=== PATIENT | female | born 1965 | race Caucasian/White ===

== ENCOUNTER 2016-11-13 09:21 | Outpatient (CLI) | payer OTHER ==
[~2016-11-13] VITALS: Ht 160 cm; Wt 92.1 kg
[~2016-11-13 09:21] MED LIST: ALBU17IN INH; BIOT800T2 PO; CALCTAB54 PO; CELL500T PO; COSE1INJ3 SC; DAYP600T PO; FOLI1TAB2 PO; HUMI40KI SC; LOVE1INJ SC; MIRA1.5T2 PO; OMEP40CA2 PO; PRED10TA PO; PRED20TA PO; PYRI60TA2 PO; REST0.05 OU; ROPI1TAB PO; SODIUM CHLORIDE 0.9% INJ 10 ML SYR IV SCH; TYLE500T78 PO; VITA100T2 PO; VITA200016 PO; VOLT1GEL24 TD; [UNRECOGNIZED DRUG - CODE] PO
[2016-11-13] MEDS ORDERED: IMMUNE GLOBULIN 10% 10 GM in APPROPRIATE DILUENT 1 EA IV ONE (09:45)
[2016-11-13] MEDS ORDERED: IMMUNE GLOBULIN 10% 20 GM in APPROPRIATE DILUENT 1 EA IV ONE (09:45)
[2016-11-13] MEDS ORDERED: FLON1SPR (17:10)
[2016-11-13] MEDS ORDERED: [UNRECOGNIZED DRUG - CODE] PO (17:10)
[2016-11-13] MEDS ORDERED: ROPI2TAB PO (17:10)
[2016-11-13] MEDS ORDERED: PEPC1TAB4 PO (17:10)
[2016-11-13] MEDS ORDERED: METH2000 IM (17:10)
[2016-11-13] MEDS ORDERED: IVIG INJ (17:13)
[2016-11-13] MEDS ORDERED: TYLE160S15 PO (17:13)
[2016-11-13] MEDS ORDERED: FOLI1TAB2 PO (17:13)
== END 2016-11-13 13:15 | disposition home or self-care (01) ==
LOC: M INFU 09:21
PROVIDERS: ATTEND Psychiatry & Neurology Neurology
DX: G70.00 Myasthenia gravis without (acute) exacerbation (principal); Z79.899 Other long term (current) drug therapy; Z79.52 Long term (current) use of systemic steroids; Z88.8 Allergy status to other drugs, medicaments and biological substances; Z88.2 Allergy status to sulfonamides

== ENCOUNTER 2016-11-13 13:24 | Inpatient (IN) | payer OTHER ==
[~2016-11-13] VITALS: Ht 160 cm; Wt 95.3 kg
[~2016-11-13 13:24] MED LIST changes: -SODIUM CHLORIDE 0.9% INJ 10 ML SYR IV SCH
[2016-11-13 14:20] LABS: BASO % 0.2 % (0.0-1.0); EOS # 0.2 K/mm3 (0.0-0.50); EOS % 2.3 % (0.0-3.0); LARGE UNSTAINED CELL # 0.2 K/mm3 (0.0-0.4); LYMPH # 2.2 K/mm3 (1.5-4.5); LYMPH % 22.8 % (24.0-44.0); MEAN CORPUSCULAR HEMOGLOBIN 28.4 pg (27.0-33.0); MEAN CORPUSCULAR HGB CONC 33.1 g/dl (32.0-36.5); MEAN CORPUSCULAR VOLUME 85.7 fl (80.0-96.0); MONO # 0.4 K/mm3 (0.0-0.8); MONO % 4.4 % (0.0-5.0); NEUTROPHILS # 6.5 K/mm3 (1.8-7.7); NEUTROPHILS % 68.3 % (36.0-66.0); PLATELET COUNT, AUTOMATED 274 k/mm3 (150-450); RED CELL DISTRIBUTION WIDTH 14.8 % (11.5-14.5); WHITE BLOOD COUNT 9.5 K/mm3 (4.0-10.0)
[2016-11-13 14:49] LABS: ALBUMIN 3.1 GM/DL (3.2-5.2); ALBUMIN/GLOBULIN RATIO 0.61 (1.00-1.93); ALKALINE PHOSPHATASE 111 U/L (45-117); ALT/SGPT 25 U/L (12-78); ANION GAP 6 MEQ/L (8-16); AST/SGOT 17 U/L (15-37); BILIRUBIN,DIRECT < 0.1 MG/DL (0.0-0.2); BILIRUBIN,TOTAL 0.2 MG/DL (0.2-1.0); BLOOD UREA NITROGEN 10 MG/DL (7-18); CALCIUM LEVEL 8.4 MG/DL (8.5-10.1); CARBON DIOXIDE LEVEL 28 MEQ/L (21-32); CHLORIDE LEVEL 107 MEQ/L (98-107); CREATININE FOR GFR 0.65 MG/DL (0.55-1.02); GLOMERULAR FILTRATION RATE > 60.0 (>51); GLUCOSE, FASTING 100 MG/DL (70-105); POTASSIUM SERUM 3.9 MEQ/L (3.5-5.1); SODIUM LEVEL 141 MEQ/L (136-145); TOTAL PROTEIN 8.2 GM/DL (6.4-8.2)
--- NOTE | 2016-11-13 15:25 | REP ---
Abdominal series: Three views. History: Abdominal pain. Comparison chest x-ray June 15, 2016. Findings: There is a right subclavian Nqamvi-P-Cqct catheter with its tip in the expected location of the superior vena cava. Heart is not enlarged. Lungs are well inflated and clear. There is no evidence of infiltrate or free subdiaphragmatic air. Supine and erect views of the abdomen demonstrate metallic fusion apparatus at the L5-S1 spinous process level and some degenerative disc changes in the lumbar spine. The bowel gas pattern is unremarkable. Flank stripes and psoas margins are intact. No mass, organomegaly or pathologic calcification is seen. Impression: Negative abdominal series. Signed by William Perla MD 11/13/2016 07:28 P
[2016-11-13] MEDS ORDERED: ACETAMINOPHEN TAB 650MG DOSE (2X325MG) PO PRN (16:45)
[2016-11-13] MEDS ORDERED: PEPC1TAB4 PO (17:10)
[2016-11-13] MEDS ORDERED: [UNRECOGNIZED DRUG - CODE] PO (17:10)
[2016-11-13] MEDS ORDERED: ROPI2TAB PO (17:10)
[2016-11-13] MEDS ORDERED: METH2000 IM (17:10)
[2016-11-13] MEDS ORDERED: FLON1SPR (17:10)
--- NOTE | 2016-11-13 17:10 | HPEPDOC ---
General Date of Admission 11/13/16 508PM Chief Complaint The patient is a 50-year-old female Presented from the infusion center (for IVIG ) for difficulty swallowing History of Present Illness Patient is a 50 year old male with a PMHx of psoriatic arthritis, restless leg syndrome, seronegative myasthenia gravis and COPD who presented to the ER from infusion center because of difficulty swallowing. Patient notes that yesterday she was at home and eating ice cream that evening. She was able to swallow the ice cream, but got the sensation of it getting stuck in her esophagus. She then vomited up the bolus. She denies any blood. She reported that she went to the infusion center for IVIG the next day. She completed her infusion and tried to consume some apple sauce and pudding, but experienced the same thing again. She vomited 4 times that time. She denies any fever or chills, diarrhea or constipation. She notes some upper abdominal pain when she does try to swallow. She denies any dysuria. She denies chest pain, or cough. But reports some difficulty taking in breaths, noting her diaphragm feels weak. She has been diagnosed with seronegative myasthenia gravis in April and has been receiving IVIG infusions every 14 days since that point, as well as pyridostigmine. Home Medications Scheduled (Cosentyx) 150 Mg/Ml Inj 300 MG SC QMONTH (Reported) FIRST WEDNESDAY OF EVERY MONTH, DUE 11/13/16 (Flonase Allergy Relief) 50 Mcg/Act Spr 2 SPRAYS NA DAILY (Reported) ([Ivig]) 1 DOSE INJ Q2WK (Reported) Famotidine (Pepcid) 20 Mg Tab 20 MG PO DAILY (Reported) CRUSHED AND PUT IN APPLESAUCE/PUDDING Folic Acid (Folic Acid) 1 Mg Tab 1 MG PO DAILY (Reported) CRUSHED AND PUT IN APPLESAUCE/PUDDING Methotrexate Sodium (Methotrexate Sodium) 25 Mg/Ml Inj 7.5 MG IM QWEEK ( Reported) MONDAYS Pyridostigmine [place] (Mestinon) 60 Mg/5 Ml Syrp 2.5 MG PO BID (Reported) Ropinirole Hydrochloride (Ropinirole HCl) 1 Mg Tab 1 MG PO BID (Reported) 0600, 1200 - CRUSHED AND PUT IN APPLESAUCE/PUDDING Ropinirole Hydrochloride (Ropinirole HCl) 2 Mg Tab 2 MG PO QHS (Reported) CRUSHED AND PUT IN APPLESAUCE/PUDDING Scheduled PRN Acetaminophen (Tylenol Childrens) 160 Mg/5 Ml Amber 640 MG PO PRN PRN PRN PAIN / FEVER (Reported) Albuterol Sulfate (Ventolin Hfa) 200 Puff/8 Gm Aers 2 PUFF INH Q4H PRN PRN SHORTNESS OF BREATH (Reported) Allergies Coded Allergies: Sulfa Drugs (Verified Allergy, Severe, LIVER FAILURE, 01/16/13) Sulfa Drugs Cross Reactors (Verified Allergy, Severe, LIVER FAILURE, ) Metoclopramide (Verified Allergy, Unknown, 11/21/14) Sorbitan (Verified Allergy, Unknown, 11/21/14) Sulfasalazine (Verified Allergy, Unknown, 11/21/14) Ustekinumab (Verified Allergy, Unknown, 11/21/14) Uncoded Allergies: STEROIDS (Adverse Reaction, Unknown, TOO MANY SIDE EFFECTS, 11/13/16) PATIENT STATES SHE DOES NOT WANT TO RECEIVE STEROIDS OF ANY KIND BECAUSE OF ALL THE REBOUND EFFECTS SHE GETS FROM THEM Past Medical History Medical History Psoriatic arthritis, restless leg syndrome, seronegative myasthenia gravis and COPD Surgical History Right knee surgery Spinal fusion Right hip repair Exploratory laparotomy for adhesions Family History Family History - Mother with history of ESRD - Father with history of amyloidosis and prostate CA Social History Social History - Denies the use of alcohol or illicit drugs, Smokes occasionally - Denies recent travel or sick contacts - Lives with 14 year old son - 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; 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 Review of Symptoms Other systems Constitutional: Denies weight loss, change in appetite, or recent trauma Eyes: No visual changes or eye pain Ears, Nose, Throat: Denies nose bleeds, Positive difficulty swallowing Cardiovascular: Denies chest pain, sweating, or orthopnea Respiratory: Denies cough, wheezing, Difficulty getting in a breath GI: Positive nausea and vomiting, Mild abdominal pain, No diarrhea or constipation : Denies pain with urination or frequency Musculoskeletal: Denies joint pain or swelling Neuro / Psych: Denies muscle weakness or sensory loss Skin: No skin rashes noted All other review of systems negative; otherwise stated in history of present illness Vital Signs - Vitals: BP 120/64, HR 74, RR 18, Sat 99%RA, Temp 98.5F - General: Lying in bed, No acute distress, Speaking in full sentences, AAOx3 - HEENT: NC, AT, PERRLA, EOMI - CVS: RRR, +S1S2, - Murmurs / rubs / gallops - Lungs: Fair air entry bilaterally, Clear to auscultation, No wheezing / rales / rhonchi - Abdomen: Soft, Non-distended, Non-tender, + Bowel sounds x 4 - Extremities: + PPx4, No lower extremity edema, No calf tenderness - Neuro: No focal motor or sensory deficit, 4/5 muscle strength in all four extremities - Skin: No visible rashes Laboratory Data Labs 24H Laboratory Tests 2 11/13/16 14:13: Aspartate Amino Transf (AST/SGOT) 17, Alanine Aminotransferase (ALT/SGPT) 25, Alkaline Phosphatase 111, Total Bilirubin 0.2, Direct Bilirubin < 0.1, Albumin 3.1L, Albumin/Globulin Ratio 0.61L, Anion Gap 6L, White Blood Count 9.5, Red Blood Count 4.18, Hemoglobin 11.9L, Hematocrit 35.8L, Mean Corpuscular Volume 85.7, Mean Corpuscular Hemoglobin 28.4, Mean Corpuscular Hemoglobin Concent 33.1 , Red Cell Distribution Width 14.8H, Platelet Count 274, Neutrophils (%) (Auto) 68.3H, Lymphocytes (%) (Auto) 22.8L, Monocytes (%) (Auto) 4.4, Eosinophils (%) ( Auto) 2.3, Basophils (%) (Auto) 0.2, Neutrophils # (Auto) 6.5, Lymphocytes # ( Auto) 2.2, Monocytes # (Auto) 0.4, Eosinophils # (Auto) 0.2, Basophils # (Auto) 0.0, Calcium Level 8.4L, Glomerular Filtration Rate > 60.0, Large Unclassified Cells # 0.2, Large Unclassified Cells % 2.0, Total Protein 8.2 CBC/BMP Laboratory Tests 11/13/16 14:13 Red Blood Count 4.18, Mean Corpuscular Volume 85.7, Mean Corpuscular Hemoglobin 28.4, Mean Corpuscular Hemoglobin Concent 33.1, Red Cell Distribution Width 14.8 H, Neutrophils (%) (Auto) 68.3 H, Lymphocytes (%) (Auto) 22.8 L, Monocytes (%) (Auto) 4.4, Eosinophils (%) (Auto) 2.3, Basophils (%) (Auto) 0.2, Neutrophils # (Auto) 6.5, Lymphocytes # (Auto) 2.2, Monocytes # (Auto) 0.4, Eosinophils # (Auto) 0.2, Basophils # (Auto) 0.0 Plan / VTE VTE Prophylaxis Ordered?: Yes Plan Plan Nausea and vomiting - 2/2 difficulty swallowing - possibly 2/2 myasthenia crisis , possibly esophageal dysmotility - Started to occur yesterday evening - Has received infusion of IVIG at the infusion center - No focal deficits, no eye lid droop, no double vision - Will check esophogram for any evidence of stricture - Will provide bed side swallow evaluation - Will keep NPO, will advance to liquid diet after esophogram - c/w Pyridostigmine - Will give 30grames of IVIG for additional 2 days (3 days total) - Will consult neurology (Dr. Colbert) appreciate their input Normocytic anemia - Hg baseline of 13, currently at 11.9 - Will check iron panel, B12, Folate, reticulocyte count - Will follow CBC Psoriatic arthritis - receives infusion of biologic and methotrexate as an outpatient Restless leg syndrome - c/w ropinarole COPD - some wheezing on physical exam - will start duoneb therapy while inpatient - c/w home inhaled therapy Gastrointestinal prophylaxis - Will start protonix DVT prophylaxis - Will start lovenox PASCUAL URBINA MD Nov 13, 2016 17:10
[2016-11-13] MEDS ORDERED: TYLE160S15 PO (17:13)
[2016-11-13] MEDS ORDERED: IVIG INJ (17:13)
[2016-11-13] MEDS ORDERED: FOLI1TAB2 PO (17:13)
[2016-11-13] MEDS ORDERED: ALBUTEROL 90 MCG/ACT 8GM HFA INHALER INH PRN (17:30)
[2016-11-13 17:34] LABS: RETIC HEMOGLOBIN CONTENT CHr 33.1 PG (24-36); RETICULOCYTE ABSOLUTE ADVIA212 65 x10(9)/L (17-77)
[2016-11-13 17:42] LABS: FERRITIN 72 NG/ML (8-252); PERCENT SATURATION 13.4 % (13.2-37.4); TOTAL IRON BINDING CAPACITY 307 UG/DL (250-450)
--- NOTE | 2016-11-13 17:48 | EDDOCDS ---
Physician Documentation [facility] Name: Angelia Arthur Age: 50 yrs Sex: Female : 1965 Arrival Date: 11/13/2016 Time: 13:24 Bed 4 Private MD: Gustavo So T Disposition: 11/13 16:26 Critical Care: Critical care not applicable. pc Disposition: 11/13/16 16:26 Hospitalization ordered by Tea Gunn for Inpatient Admission. Preliminary diagnosis are Dysphagia, Myasthenia gravis - seronegative. - Bed requested for 5 [place]. - Status is Inpatient Admission. rs3 - Condition is Stable. - Problem is an acute exacerbation. - Symptoms are unchanged. HPI: 14:08 This 50 yrs old Female presents to ER via Walkin/Carried/Asstd with pc complaints of Difficulty Swallowing. 14:08 The history is obtained from the patient. She has had difficulty swallowing for 24 pc hours and has vomited pudding and ice cream within the past 12 hours. She has MG and was in the infusion unit for IVIG today and came for evaluation. She feel she is having a flare of her MG. She denies any fevers or chills, Resp or symptoms. At their worst, the symptoms were mild. In the emergency department, the symptoms are unchanged. The patient has experienced similar episodes in the past, a few times. The patient has been recently seen by Dr. Garza. Historical: - Allergies: Azulfidine; Reglan; Stelara; SULFA (SULFONAMIDES); - Home Meds: 1. Ventolin HFA 90 mcg/actuation Nebulizer HFAA 2 puffs every 4-6 hours 2. Pepcid 20 mg Oral tab 1 tab once daily 3. prednisone 20 mg Oral tab once daily 4. Flonase 50 mcg/actuation Nasal spsn 5. ropinirole 1 mg oral tab 1 tab twice a day 6. ropinirole 2 mg oral tab 1 tab daily 7. Cosentyx 150 mg/mL subcutaneous syrg 2 mL every 4 wks 8. pyridostigmine bromide 60 mg/5 mL oral syrp 2.5 mL twice a day 9. mycophenolate mofetil 500 mg oral tab 2 tabs 2 times per day 10. methotrexate injection weekly 7.5 mg 11. folic acid 1 mg Oral tab 1 tab once daily - PMHx: Arthritis; body spasms; myesthenia gravis; Psoriasis; - PSHx: Knee surgery- Right; Spinal Fusion; Hip Arthroplasty, Right; Cardiac stents; Colonoscopy; infusaport placed; Endoscopy, Upper; - The history from nurses notes was reviewed: and I agree with what is documented. - Social history: Smoking status: Patient uses tobacco products, current some day smoker. No barriers to communication noted, The patient speaks fluent [place]. - : The pt / caregiver states he / she is not on anticoagulants. Home medication list is obtained from the patient, [employer] import data. - Hospitalizations: : No recent hospitalization is reported. - Exposure Risk Screening:: None identified. - Immunization history:: All immunizations up-to-date. - Family history: Not pertinent. - Social history:: the patient is a non-smoker, the patient does not drink alcohol. 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 pc Exam: 14:08 General Appearance: no acute distress, alert. pc 14:08 EENT: normal eye inspection, ears, nose and throat normal, pharynx normal, mucous membranes moist 14:08 Neck: The exam reveals no acute abnormalities. ROM is normal and painless. No nuchal rigidity is noted.. 14:08 Respiratory: no respiratory distress, normal breath sounds, chest non-tender. 14:08 CVS: regular pulse rate, regular rhythm, normal S1 and S2, no murmurs, strong peripheral pulses. 14:08 Abdomen: soft, non-tender, no organomegaly, normal bowel sounds. 14:08 Back: normal inspection. 14:08 Skin: skin color is normal, warm, dry, diffuse psoriatic patches. 14:08 Extremities: The extremities have a grossly normal appearance, are non-tender, without acute ROM abnormalities. 14:08 Neuro: oriented x 3, cranial nerves normal as tested, no motor deficits, no sensory deficits. 14:08 Psych: normal mood. Vital Signs: 13:26 BP 128 / 76; Pulse 71; Resp 18; Temp 98.5(O); Pulse Ox 99% on R/A; Weight 92.99 kg / ct3 205.01 lbs (R); Height 5 ft. 3 in. (160.02 cm) (R); Pain 6/10; 15:33 BP 137 / 74 (auto/); rs3 15:34 Pulse 68 MON; Pulse Ox 98% ; rs3 16:06 BP 120 / 64 (auto/); rs3 16:07 Pulse 74 MON; Pulse Ox 98% ; rs3 16:21 BP 119 / 66 (auto/); rs3 16:21 Pulse 66 MON; Pulse Ox 97% ; rs3 16:36 BP 134 / 69 (auto/); rs3 16:36 Pulse 82 MON; Pulse Ox 97% ; rs3 16:51 BP 111 / 61 (auto/); rs3 16:51 Pulse 70 MON; Pulse Ox 96% ; rs3 17:06 BP 107 / 63 (auto/); rs3 17:17 BP 107 / 63; Pulse 64 MON; Resp 18; Temp 98(TE); Pulse Ox 97% on R/A; Pain 2/10; rs3 17:21 BP 103 / 58 (auto/); rs3 17:21 Pulse 72 MON; Pulse Ox 96% ; rs3 13:26 Body Mass Index 36.31 (92.99 kg, 160.02 cm) ct3 MDM: 14:05 heparin 100units/mL flush (infusaport) 5 ml IVP once; flush first with 10mL of NS pc followed by heparin ordered. 14:05 Access Infusaport ordered. pc 14:06 CBC with Diff Ordered. EDMS 14:06 MED Profile Ordered. EDMS 14:06 Liver Profile Ordered. EDMS 14:07 Abdomen, Flat\E\Upright,PA Chest Ordered. EDMS 14:08 Differential Diagnosis: myasthenia gravis; difficulty swallowing. Plan: labs, imaging, pc d/w Dr. Garza. 15:13 CBC with Diff Reviewed. pc 15:13 MED Profile Reviewed. pc 15:13 Liver Profile Reviewed. pc 16:06 [facility] Payment Agreement was scanned into [employer] and attached to record. jp5 16:06 Financial registration complete. jp5 16:18 Data reviewed: old medical records, vital signs, nurses notes, lab test results, all pc radiology studies and available results. Test interpretation: LAB - all labs as ordered have been reviewed, interpreted and considered in the overall management of the clinical presentation; X-RAY - interpreted by Radiologist and personally reviewed, 3-view abdomen series; no acute disease. The patient has been re-examined and re-evaluated. There is no appreciated change of the patient's symptoms at this time. Physician consultation: Dr. Fernando Colbert MD regarding patient's condition, and he relays that her diagnosis suspect at best, that other IVIG which she already receives, there is nothing acute he can offer but would consult when admitted . Disposition: The historical points, examination findings, and any diagnostic results supporting the provided diagnosis, were discussed with the patient or legal guardian. The need for further work-up and/or treatment in the hospital was explained. 16:18 Physician consultation: Dr. Tea Gunn regarding admission, and will see patient in ED. 16:52 Admission / Observation Status ordered. EDMS 16:53 URINALYSIS Ordered. EDMS 16:53 URINE CULTURE Ordered. EDMS 17:08 Esophagram Barium Swallow Ordered. EDMS 17:10 NPO DIET ordered. EDMS 17:16 RETICULOCYTE COUNT Ordered. EDMS Administered Medications: 16:19 Not Given (accessed at infusion clinic): heparin 100units/mL flush (infusaport) 5 ml rs3 IVP once; flush first with 10mL of NS followed by heparin Signatures: Dispatcher [employer] EDMS Sushant Brown MD MD Kim Jeffers RN RN rs3 Alise Zuñiga RN RN [id number] Muriel Kim RN RN [id number] Ale Paz [email or web address] The chart was reviewed and I authenticate all verbal orders and agree with the evaluation and treatment provided.Corrections: (The following items were deleted from the chart) 17:09 17:05 CLEAR LIQUIDS DIET ordered. EDMS EDMS 17:19 17:07 IRON (FE) ordered. EDMS EDMS 17:19 17:07 TOTAL IRON BINDING CAPACIT ordered. EDMS EDMS 17:19 17:07 FERRITIN ordered. EDMS EDMS 17:19 17:08 RETICULOCYTE COUNT ordered. EDMS EDMS 17:19 17:08 VITAMIN B12 LEVEL ordered. EDMS EDMS 17:19 17:08 FOLATE ordered. EDMS EDMS Attachments: 16:06 [facility] Payment Agreement [email or web address]
--- NOTE | 2016-11-13 17:48 | EDDOCDS ---
Nurse's Notes [facility] Name: Angelia Arthur Age: 50 yrs Sex: Female : 1965 Arrival Date: 11/13/2016 Time: 13:24 Bed 4 Private MD: Gustavo So T Diagnosis: Dysphagia;Myasthenia gravis-seronegative Presentation: 11/13 13:31 Presenting complaint: Patient states: that she started having trouble swallowing ms18 yesterday. Pt reports that she gets IV Ig every 14 days. Pt reports pain in her back when she eats. Pt also c/o weakness in her diaphragm and throat. Pt also reports vomiting 4 times this morning. Onset: The symptoms/episode began/occurred yesterday. This patient has not experienced a previous allergic reaction. Anaphylaxis evaluation, the patient reports or I have noted the following symptoms which indicate a significant risk of anaphylaxis: no signs or symptoms of anaphylaxis were noted. Adult Sepsis Screening: The patient does not have new or worsening altered mentation. Patient's respiratory rate is less than 22. Systolic blood pressure is greater than 100. Patient has a qSOFA score of 0- Negative Sepsis Screen. Suicide/Homicide risk assessment- the patient denies having any suicidal and/or homicidal ideations and does not present with any other emotional, behavioral or mental health complaints. Status: Patient is not a relocation services specialist or dependent. Transition of care: patient was received from infusion clinic. 13:31 Acuity: GONZALES Level 3 ms18 13:31 Method Of Arrival: Walkin/Carried/Asstd ms18 Triage Assessment: 13:40 General: Appears in no apparent distress, obese, uncomfortable, Behavior is appropriate ms18 for age, cooperative. Pain: Location: back and throat Pain currently is 5 out of 10 on a pain scale. HIV screening NA for this visit Offered previously. Neurological: Level of Consciousness is awake, alert, obeys commands, Oriented to person, place, time. Respiratory: Airway is patent Respiratory effort is even, unlabored, Reports shortness of breath. Derm: Skin is pink, warm & dry. 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 Ventolin HFA 90 mcg/actuation Nebulizer HFAA 2 puffs every 4-6 hours 2. Pepcid 20 mg Oral tab 1 tab once daily 3. prednisone 20 mg Oral tab once daily 4. Flonase 50 mcg/actuation Nasal spsn 5. ropinirole 1 mg oral tab 1 tab twice a day 6. ropinirole 2 mg oral tab 1 tab daily 7. Cosentyx 150 mg/mL subcutaneous syrg 2 mL every 4 wks 8. pyridostigmine bromide 60 mg/5 mL oral syrp 2.5 mL twice a day 9. mycophenolate mofetil 500 mg oral tab 2 tabs 2 times per day 10. methotrexate injection weekly 7.5 mg 11. folic acid 1 mg Oral tab 1 tab once daily - PMHx: Arthritis; body spasms; myesthenia gravis; Psoriasis; - PSHx: Knee surgery- Right; Spinal Fusion; Hip Arthroplasty, Right; Cardiac stents; Colonoscopy; infusaport placed; Endoscopy, Upper; - The history from nurses notes was reviewed: and I agree with what is documented. - Social history: Smoking status: Patient uses tobacco products, current some day smoker. No barriers to communication noted, The patient speaks fluent [place] Citizen. - : The pt / caregiver states he / she is not on anticoagulants. Home medication list is obtained from the patient, [employer] import data. - Hospitalizations: : No recent hospitalization is reported. - Exposure Risk Screening:: None identified. - Immunization history:: All immunizations up-to-date. - Family history: Not pertinent. - Social history:: the patient is a non-smoker, the patient does not drink alcohol. Screenin:55 Screening information is obtained from the patient. Fall risk: No risks identified. rs3 Assistance ADL's: requires no assistance with activities of daily living. Abuse/DV Screen: The patient / caregiver reports he/she is: not in a situation that causes fear, pain or injury. Nutritional screening: No deficits noted. Advance Directives: Currently, there is no health care proxy. home support is adequate. Assessment: 13:56 General: Appears in no apparent distress, Behavior is appropriate for age, cooperative. rs3 Pain: Location: thoracic area. Neurological: Level of Consciousness is. Respiratory: Breath sounds with crackles in left posterior lower lobe, right posterior middle lobe and right posterior lower lobe Breath sounds with wheezes bilaterally. Respiratory: Airway is patent Respiratory effort is even, unlabored, Respiratory pattern is regular, symmetrical. Derm: Skin is pink, warm & dry. 14:50 General: Appears in no apparent distress, returned from x-ray. stable. tolerated well. rs3 waiting for lab results. 15:50 General: Appears in no apparent distress, Behavior is appropriate for age, ambulated to rs3 bathroom. tolerated well. reports of mid back pain unchanged. attending provider made aware. breathes easy. denies of acute distress. Able to maintain oral secretion swallowing easily. 16:23 General: Appears in no apparent distress, Behavior is cooperative, patient resting rs3 comfortable on stretcher. denies of acute distress. breathes easy. . 17:30 General: Appears in no apparent distress, Behavior is appropriate for age, cooperative. rs3 Pain: Location: back and thoracic area. Neurological: Level of Consciousness is awake, alert, Oriented to person, place, time, Deputy Sheriff Custody are equal bilaterally Moves all extremities. Cardiovascular: Capillary refill < 3 seconds Heart tones S1 S2 present. Respiratory: Airway is patent Respiratory effort is even, unlabored, Respiratory pattern is regular, symmetrical. GI: Abdomen is non- distended Bowel sounds present X 4 quads. : Urine is clear. Derm: Skin is pink, warm & dry. Vital Signs: 13:26 BP 128 / 76; Pulse 71; Resp 18; Temp 98.5(O); Pulse Ox 99% on R/A; Weight 92.99 kg (R); ct3 Height 5 ft. 3 in. (160.02 cm) (R); Pain 6/10; 15:33 BP 137 / 74 (auto/); rs3 15:34 Pulse 68 MON; Pulse Ox 98% ; rs3 16:06 BP 120 / 64 (auto/); rs3 16:07 Pulse 74 MON; Pulse Ox 98% ; rs3 16:21 BP 119 / 66 (auto/); rs3 16:21 Pulse 66 MON; Pulse Ox 97% ; rs3 16:36 BP 134 / 69 (auto/); rs3 16:36 Pulse 82 MON; Pulse Ox 97% ; rs3 16:51 BP 111 / 61 (auto/); rs3 16:51 Pulse 70 MON; Pulse Ox 96% ; rs3 17:06 BP 107 / 63 (auto/); rs3 17:17 BP 107 / 63; Pulse 64 MON; Resp 18; Temp 98(TE); Pulse Ox 97% on R/A; Pain 2/10; rs3 17:21 BP 103 / 58 (auto/); rs3 17:21 Pulse 72 MON; Pulse Ox 96% ; rs3 13:26 Body Mass Index 36.31 (92.99 kg, 160.02 cm) ct3 Vitals: 13:26 Log In Time: November 13, 2016 at 13:23. ct3 ED Course: 13:25 Patient visited by Helen Arevalo PCA. ct3 13:25 Gustavo So is Private Physician. ct3 13:25 Patient moved to Waiting ct3 13:27 Patient moved to Pre RCE ct3 13:34 Triage Initiated ms18 13:42 Kim Jeffers RN is Primary Nurse. ms18 13:42 Patient moved to 4 ms18 13:45 Sushant Brown MD is Attending Physician. pc 13:55 Patient visited by Kim Jeffers RN. rs3 14:04 Patient visited by Sushant Brown MD. pc 14:15 Liver Profile Sent. rs3 14:15 MED Profile Sent. rs3 14:15 CBC with Diff Sent. rs3 14:53 Patient visited by Kim Jeffers RN. rs3 15:31 Patient visited by Kim Jeffers RN. rs3 15:34 Abdomen, Flat\E\Upright,PA Chest Returned. EDMS 16:06 [facility] Payment Agreement was scanned into [employer] and attached to record. jp5 16:19 Patient visited by Kim Jeffers RN. rs3 16:22 Maintain field IV. Dressing intact. Good blood return noted. rs3 16:26 Tea Gunn is Hospitalizing Provider. pc 17:31 No procedures done that require assistance. rs3 17:32 The patient / caregiver is instructed regarding the plan of care and ED course. rs3 Administered Medications: 16:19 Not Given (accessed at infusion clinic): heparin 100units/mL flush (infusaport) 5 ml rs3 IVP once; flush first with 10mL of NS followed by heparin Order Results: Lab Order: CBC with Diff; SPEC'M 11/13/16 14:13 Test: WHITE BLOOD COUNT; Value: 9.5; Range: 4.0-10.0; Units: K/mm3; Status: F Test: RED BLOOD COUNT; Value: 4.18; Range: 4.00-5.40; Units: M/mm3; Status: F Test: HEMOGLOBIN; Value: 11.9; Range: 12.0-16.0; Abnormal: Below low normal; Units: g/dl; Status: F Test: HEMATOCRIT; Value: 35.8; Range: 36.0-47.0; Abnormal: Below low normal; Units: %; Status: F Test: MEAN CORPUSCULAR VOLUME; Value: 85.7; Range: 80.0-96.0; Units: fl; Status: F Test: MEAN CORPUSCULAR HEMOGLOBIN; Value: 28.4; Range: 27.0-33.0; Units: pg; Status: F Test: MEAN CORPUSCULAR HGB CONC; Value: 33.1; Range: 32.0-36.5; Units: g/dl; Status: F Test: RED CELL DISTRIBUTION WIDTH; Value: 14.8; Range: 11.5-14.5; Abnormal: Above high normal; Units: %; Status: F Test: PLATELET COUNT, AUTOMATED; Value: 274; Range: 150-450; Units: k/mm3; Status: F Test: NEUTROPHILS %; Value: 68.3; Range: 36.0-66.0; Abnormal: Above high normal; Units: %; Status: F Test: LYMPH %; Value: 22.8; Range: 24.0-44.0; Abnormal: Below low normal; Units: %; Status: F Test: MONO %; Value: 4.4; Range: 0.0-5.0; Units: %; Status: F Test: EOS %; Value: 2.3; Range: 0.0-3.0; Units: %; Status: F Test: BASO %; Value: 0.2; Range: 0.0-1.0; Units: %; Status: F Test: LARGE UNSTAINED CELL %; Value: 2.0; Range: 0.0-4.0; Units: %; Status: F Test: NEUTROPHILS #; Value: 6.5; Range: 1.8-7.7; Units: K/mm3; Status: F Test: LYMPH #; Value: 2.2; Range: 1.5-4.5; Units: K/mm3; Status: F Test: MONO #; Value: 0.4; Range: 0.0-0.8; Units: K/mm3; Status: F Test: EOS #; Value: 0.2; Range: 0.0-0.50; Units: K/mm3; Status: F Test: BASO #; Value: 0.0; Range: 0.0-0.2; Units: K/mm3; Status: F Test: LARGE UNSTAINED CELL #; Value: 0.2; Range: 0.0-0.4; Units: K/mm3; Status: F Lab Order: MED Profile; SPEC'M 11/13/16 14:13 Test: GLUCOSE, FASTING; Value: 100; Range: 70-105; Units: MG/DL; Status: F Test: BLOOD UREA NITROGEN; Value: 10; Range: 7-18; Units: MG/DL; Status: F Test: CREATININE FOR GFR; Value: 0.65; Range: 0.55-1.02; Units: MG/DL; Status: F Test: GLOMERULAR FILTRATION RATE; Value: > 60.0; Range: >51; Status: F Test: SODIUM LEVEL; Value: 141; Range: 136-145; Units: MEQ/L; Status: F Test: POTASSIUM SERUM; Value: 3.9; Range: 3.5-5.1; Units: MEQ/L; Status: F Test: CHLORIDE LEVEL; Value: 107; Range: 98-107; Units: MEQ/L; Status: F Test: CARBON DIOXIDE LEVEL; Value: 28; Range: 21-32; Units: MEQ/L; Status: F Test: ANION GAP; Value: 6; Range: 8-16; Abnormal: Below low normal; Units: MEQ/L; Status: F Test: CALCIUM LEVEL; Value: 8.4; Range: 8.5-10.1; Abnormal: Below low normal; Units: MG/DL; Status: F Test Note: ; Units are mL/min/1.73 m2 Chronic Kidney Disease Staging per NKF: Stage I & II GFR >=60 Normal to Mildly Decreased Stage III GFR 30-59 Moderately Decreased Stage IV GFR 15-29 Severely Decreased Stage V GFR <15 Very Little GFR Left ESRD GFR <15 on ENVIRONMENTAL ISSUES INSTRUCTOR Lab Order: Liver Profile; [facility]11/13/16 14:13 Test: AST/SGOT; Value: 17; Range: 15-37; Units: U/L; Status: F Test: ALT/SGPT; Value: 25; Range: 12-78; Units: U/L; Status: F Test: ALKALINE PHOSPHATASE; Value: 111; Range: 45-117; Units: U/L; Status: F Test: BILIRUBIN,TOTAL; Value: 0.2; Range: 0.2-1.0; Units: MG/DL; Status: F Test: BILIRUBIN,DIRECT; Value: < 0.1; Range: 0.0-0.2; Units: MG/DL; Status: F Test: TOTAL PROTEIN; Value: 8.2; Range: 6.4-8.2; Units: GM/DL; Status: F Test: ALBUMIN; Value: 3.1; Range: 3.2-5.2; Abnormal: Below low normal; Units: GM/DL; Status: F Test: ALBUMIN/GLOBULIN RATIO; Value: 0.61; Range: 1.00-1.93; Abnormal: Below low normal; Status: F Lab Order: RETICULOCYTE COUNT; [facility] 11/13/16 14:13 Test: RETICULOCYTE % [id number]; Value: 1.60; Range: 0.5-1.5; Abnormal: Above high normal; Units: %; Status: F Test: RETICULOCYTE ABSOLUTE [id number]; Value: 65; Range: 17-77; Units: x10(9)/L; Status: F Test: RETIC HEMOGLOBIN CONTENT CHr; Value: 33.1; Range: 24-36; Units: PG; Status: F Lab Order: TOTAL IRON BINDING CAPACIT; [facility]11/13/16 14:13 Test: IRON (FE); Value: 41; Range: 50-170; Abnormal: Below low normal; Units: UG/DL; Status: F Test: TOTAL IRON BINDING CAPACITY; Value: 307; Range: 250-450; Units: UG/DL; Status: F Test: PERCENT SATURATION; Value: 13.4; Range: 13.2-37.4; Units: %; Status: F Lab Order: VITAMIN B12 LEVEL; [facility]'M 11/13/16 14:13 Test: VITAMIN B12 LEVEL; Range: 247-911; Units: PG/ML; Status: I Lab Order: FOLATE; SPEC'M 11/13/16 14:13 Test: FOLATE; Range: >5.4; Units: NG/ML; Status: I Lab Order: FERRITIN; SPEC'M 11/13/16 14:13 Test: FERRITIN; Value: 72; Range: 8-252; Units: NG/ML; Status: F Radiology Order: Abdomen, Flat\E\Upright,PA Chest Test: Abdomen, Flat\E\Upright,PA Chest REASON FOR EXAMINATION: Abdomen Pain; Abdominal series: Three views.; ; History: Abdominal pain.; ; Comparison chest x-ray June 15, 2016.; ; Findings: There is a right subclavian Komcuj-K-Pdno catheter with its tip in the; expected location of the superior vena cava. Heart is not enlarged. Lungs are; well inflated and clear. There is no evidence of infiltrate or free; subdiaphragmatic air.; ; Supine and erect views of the abdomen demonstrate metallic fusion apparatus at; the L5-S1 spinous process level and some degenerative disc changes in the lumbar; spine. The bowel gas pattern is unremarkable. Flank stripes and psoas margins; are intact. No mass, organomegaly or pathologic calcification is seen.; ; Impression:; ; Negative abdominal series.; ; ; ; ; Unreviewed; Outcome: 16:26 Decision to Hospitalize by Provider. 17:31 Discharge Assessment: patient administered narcotics - no. The following High Risk rs3 Discharge criteria are identified: None. Admitted to Med/Surg accompanied by tech, via stretcher, with chart. Condition: stable. No special radiology studies were completed. Admission hand-off: Report Faxed Fax receipt verified by unit staff. Property :Personal belongings accompany Pt. 17:47 Patient left the ED. rs3 Signatures: Dispatcher [employer] EDMS Sushant Brown MD MD pc Soosairaj, Rosemary, RN RN rs3 Helen Arevalo, JULIO CÉSAR EQUIPMENT OPERATOR/LABORER/SUPERVISOR ct3 Alise Zuñiga RN RN ms18 Ale Paz jp5 Corrections: (The following items were deleted from the chart) 17:17 17:06 BP 107 / 63; Pulse 64bpm; MonitorResp 18bpm; Pulse Ox 97% RA; Temp 98F Temporal; rs3 Pain 2/10; rs3 MTDD
[2016-11-13 17:59] LABS: VITAMIN B12 LEVEL 829 PG/ML (247-911)
[2016-11-13 18:00] VITALS: BP 135/68
[2016-11-13 18:00] LABS: FOLATE > 24.0 NG/ML (>5.4)
[2016-11-13] MEDS ORDERED: ACETAMINOPHEN 650 MG SUPP PR PRN (19:45)
[2016-11-13] MEDS: PANTOPRAZOLE 40MG INJ (PROTONIX) (C9113) IV SCH (20:27)
[2016-11-13] MEDS: PYRIDOSTIGMINE 60 MG TAB PO SCH ×2 (20:28→20:52)
[2016-11-13] MEDS: rOPINIRole 1MG TAB PO SCH (20:28)
[2016-11-13] MEDS: ACETAMINOPHEN 325 MG/10.15 ML UDC PO PRN (20:28)
[2016-11-13 22:00] VITALS: BP 108/59
[2016-11-14] VITALS (8 sets, daily range): BP systolic 110–177; BP diastolic 56–100
[2016-11-14] MEDS: ACETAMINOPHEN 325 MG/10.15 ML UDC PO PRN ×2 (02:18→23:24)
[2016-11-14] MEDS: rOPINIRole 1MG TAB PO SCH ×3 (05:15→23:17)
[2016-11-14 06:37] LABS: BASO % 0.5 % (0.0-1.0); EOS # 0.2 K/mm3 (0.0-0.50); LARGE UNSTAINED CELL # 0.1 K/mm3 (0.0-0.4); LARGE UNSTAINED CELL % 1.7 % (0.0-4.0); LYMPH # 2.1 K/mm3 (1.5-4.5); LYMPH % 28.3 % (24.0-44.0); MEAN CORPUSCULAR HEMOGLOBIN 28.9 pg (27.0-33.0); MEAN CORPUSCULAR HGB CONC 33.3 g/dl (32.0-36.5); MEAN CORPUSCULAR VOLUME 86.9 fl (80.0-96.0); MONO # 0.4 K/mm3 (0.0-0.8); MONO % 5.1 % (0.0-5.0); NEUTROPHILS # 4.7 K/mm3 (1.8-7.7); NEUTROPHILS % 62.3 % (36.0-66.0); PLATELET COUNT, AUTOMATED 282 k/mm3 (150-450); RED CELL DISTRIBUTION WIDTH 14.8 % (11.5-14.5); WHITE BLOOD COUNT 7.5 K/mm3 (4.0-10.0)
[2016-11-14 07:01] LABS: ALBUMIN 3.5 GM/DL (3.2-5.2); ALBUMIN/GLOBULIN RATIO 0.65 (1.00-1.93); ALKALINE PHOSPHATASE 115 U/L (45-117); ALT/SGPT 27 U/L (12-78); ANION GAP 4 MEQ/L (8-16); AST/SGOT 23 U/L (15-37); BILIRUBIN,TOTAL 0.3 MG/DL (0.2-1.0); BLOOD UREA NITROGEN 11 MG/DL (7-18); CALCIUM LEVEL 8.9 MG/DL (8.5-10.1); CARBON DIOXIDE LEVEL 30 MEQ/L (21-32); CHLORIDE LEVEL 105 MEQ/L (98-107); CREATININE FOR GFR 0.82 MG/DL (0.55-1.02); GLOMERULAR FILTRATION RATE > 60.0 (>51); GLUCOSE, FASTING 94 MG/DL (70-105); MAGNESIUM LEVEL 1.9 MG/DL (1.8-2.4); POTASSIUM SERUM 3.9 MEQ/L (3.5-5.1); SODIUM LEVEL 139 MEQ/L (136-145); TOTAL PROTEIN 8.9 GM/DL (6.4-8.2)
--- NOTE | 2016-11-14 08:01 | IPN ---
DATE: 11/14/2016 50-year-old female admitted last evening for myasthenia crisis. She feels that she is doing a little better with her swallowing now and feels that her breathing is better. She was diagnosed back in April and follows with Dr. Garza. She was here yesterday for infusion of IVIg when she developed her symptoms and was admitted last evening for further observation. OBJECTIVE: Temperature is 96.7, pulse 63, respiratory rate 18, blood pressure 122/74, SpO2 is 99% on room air. HEENT: Unremarkable. LUNGS: Clear. HEART: Regular rate and rhythm. ABDOMEN: Soft. EXTREMITIES: No edema. No calf tenderness. LABORATORIES: White count 7.5, hemoglobin 13.1, platelets 282,000. Sodium 139, potassium 3.9, chloride 105, bicarb 30, anion gap 4, BUN 11, creatinine 0.82, glucose 94, magnesium 1.9, AST 23, ALT 27, alkaline phosphatase 115, albumin 3.5. ASSESSMENT/PLAN 1. Myasthenia crisis with esophageal dysmotility. We did consult neurology. She will continue IVIg per protocol. She does not appear to have any respiratory crisis at this point. Will keep her n.p.o. and advance once her esophagram shows that we can do so and per neurology's recommendation. Continue with pyridostigmine and the IVIg per Dr. Colbert's input. 2. Chronic anemia, normocytic in nature. She is currently on folic acid. B12 and folate levels are normal. She has a normal to slightly elevated reticulocyte count; however, her absolute reticulocyte count is normal. No further changes in management. 3. Gastroesophageal reflux disease (GERD) with history of Pepcid use. Will continue her on IV Protonix for the time being and anticipate change to p.o. once she is able tolerate oral intake. 4. History of psoriatic arthritis. Will continue methotrexate as tolerated. 5. Restless leg syndrome. Continue on ropinirole. 6. Chronic obstructive pulmonary disease (COPD). Stable. Continue with DuoNebs. 7. Deep vein thrombosis (DVT) prophylaxis with Lovenox. DISPOSITION: Anticipate her stay here to be greater than two midnights.
[2016-11-14] MEDS ORDERED: E-Z-GAS II EFFERVESCENT PACKET (SODIUM BICARB./CITRIC ACID/SIMETHICONE) As Ordered ONE (08:20)
[2016-11-14] MEDS ORDERED: E-Z-PAQUE 96% w/w SUSP 176GM BTL As Ordered ONE (08:20)
[2016-11-14] MEDS ORDERED: E-Z-HD 98% w/w 340GM SUSP BTL As Ordered ONE (08:20)
[2016-11-14] MEDS: PYRIDOSTIGMINE 60 MG TAB PO SCH (08:35)
--- NOTE | 2016-11-14 09:42 | REP ---
ESOPHAGRAM: HISTORY: Evaluate for stricture. Back pain with swallowing. History of myasthenia gravis. FINDINGS: Preliminary therapy tech radiograph shows an Mzxstd-U-Sinv catheter via the right side with its tip in the expected location of the superior vena cava. No other abnormality on therapy tech view. The oropharyngeal phase of the barium swallow was evaluated fluoroscopically and recorded on rapid sequence spot radiographs. There is some degenerative discogenic spurring in the cervical spine at C4-5, C5-6 and C6-7 but no motor dis coordination of swallow or significant mass effect is seen. No laryngeal reflux or tracheal aspiration is seen. The body of the esophagus is normal in course and caliber. Reflux was not witnessed. No stricture is seen. 1 minute and 8 seconds of fluoroscopy time is utilized. 22 fluoroscopic spot images, 2 last image hold views, and the therapy tech PA view of the chest are included in the study. IMPRESSION: No abnormality noted. Signed by William Perla MD 11/14/2016 10:07 A
[2016-11-14] MEDS: FOLIC ACID 1 MG TAB PO SCH (10:14)
[2016-11-14] MEDS: IMMUNE GLOBULIN IV SCH (11:56)
[2016-11-14] MEDS: ENOXAPARIN 40 MG/0.4 ML SYRINGE (J1650) SC SCH (11:56)
[2016-11-14] MEDS: FLUTICASONE PROP 0.05% NASAL SPRAY 16 GM (FLONASE) SCH (11:56)
[2016-11-14] MEDS: DILUENT IV SCH (11:56)
[2016-11-14] MEDS: ONDANSETRON 4MG/2ML VIAL (J2405) IV PRN (12:46)
[2016-11-14] MEDS ORDERED: PYRIDOSTIGMINE PO SCH (21:00)
[2016-11-14] MEDS: PANTOPRAZOLE 40MG INJ (PROTONIX) (C9113) IV SCH (21:09)
[2016-11-14 21:52] LABS: ABG BASE EXCESS -4.2 (-2.0-2.0); ABG HCO3 18.4 MEQ/L (22.0-26.0); ABG PARTIAL PRESSURE CO2 26.7 mmHg (35.0-45.0); ABG TOTAL CO2 19.2 MEQ/L (22.0-29.0); ABG pH (ARTERIAL) 7.456 UNITS (7.350-7.450)
--- NOTE | 2016-11-14 22:31 | IPNPDOC ---
Text Note Date of Service The patient was seen on 11/14/16. NOTE [employer]TER [employer] called around 9:30PM: for worsening generalized weakness Patient admitted for possible myasthenia crisis. Patient has flat affect, comfortable, verbalizing weakness, no other complaints. Denied chest pain reported heavy breathing. vital 170/100, hr 70, RR 18, O2 96% , generalized b/l upper and lower ext weakness, LE worst than UE. reflex 2+ b/l patella, CN 2-12 intact, flat affect. cardiac rrr, nl s1s2, pul upper air way sound, abd soft nt + bs ABG showed respiratory alkalosis, Nifs and VS wnl, patient transferred to PCU, for close monitoring, continuous pulse ox, tele, Nifs and tidal volume Q4hr, Neuro checks, CT head ordered. Request information from [facility] discussed with Neurology Dr Filemon CHILDS,Rashard, I+O VS, Rashard, I+O Laboratory Tests 11/14/16 06:10 Calcium Level 8.9, Aspartate Amino Transf (AST/SGOT) 23, Alanine Aminotransferase (ALT/SGPT) 27, Alkaline Phosphatase 115, Total Bilirubin 0.3, Total Protein 8.9 H, Albumin 3.5, Red Blood Count 4.53, Mean Corpuscular Volume 86.9, Mean Corpuscular Hemoglobin 28.9, Mean Corpuscular Hemoglobin Concent 33.3 , Red Cell Distribution Width 14.8 H, Neutrophils (%) (Auto) 62.3, Lymphocytes ( %) (Auto) 28.3, Monocytes (%) (Auto) 5.1 H, Eosinophils (%) (Auto) 2.0, Basophils (%) (Auto) 0.5, Neutrophils # (Auto) 4.7, Lymphocytes # (Auto) 2.1, Monocytes # (Auto) 0.4, Eosinophils # (Auto) 0.2, Basophils # (Auto) 0.0 Vital Signs Date Time Temp Pulse Resp B/P Pulse Ox O2 Delivery O2 Flow Rate FiO2 11/14/16 14:00 97.6 64 18 122/64 96 Room Air I&O- Last 24 Hours up to 6 AM 11/14/16 06:00 Intake Total 300 ml Output Total 0 ml Balance 300 ml LONI PATEL MD Nov 14, 2016 22:30
--- NOTE | 2016-11-14 22:50 | REPUSA ---
CT of the soft tissues of the neck Clinical history: weakness. Technique: Multiple axial CT images were obtained from the base of the skull to the upper thorax with out administration of contrast. Findings: The visualized paranasal sinuses are clear. The pterygopalatine fossa, pterygoid plates and pterygoid muscles are unremarkable. The mucosa of the naso- and oropharynx appears unremarkable. The hypopharynx and larynx show no pathology. The visualized osseous structures are intact. Moderate deg enerative disc disease with disc osteophyte complexes are seen at C5/C6 and C6/C7. The airway is anguiano nt. No focal mass is appreciated. There is no evidence of lymphadenopathy. The thyroid gland appears diffusely heterogeneous. The superficial soft tissues are unremarkable. Impression: 1. No acute soft tissue abnormality. The airway is patent. 2. Heterogeneity of the thyroid gland. Ultrasound may be helpful for further evaluation. 3. Moderate degenerative disc disease at C5/C6 and C6/C7.
--- NOTE | 2016-11-14 22:50 | REPUSA ---
CT of the head Clinical history: acute generalized weakness. Comparison: 05/26/2016. Technique: Multiple axial CT images were obtained through the head without administration of contrast . Findings: The ventricles and sulci are symmetric bilaterally. There is no evidence of acute hemorrhag e or infarct. There is no midline shift, mass effect, or extra-axial fluid collection. The osseous st ructures are unremarkable. The visualized paranasal sinuses and mastoid air cells are clear. Impression: Negative study.
[2016-11-15] VITALS (12 sets, daily range): BP systolic 107–129; BP diastolic 55–69; PULSE 50; O2SAT 98
[2016-11-15] MEDS: ACETAMINOPHEN 325 MG/10.15 ML UDC PO PRN ×2 (05:42→23:23)
[2016-11-15] MEDS: SODIUM CHLORIDE 0.9% INJ 10 ML SYR IV SCH (05:43)
[2016-11-15 06:05] LABS: BASO % 0.2 % (0.0-1.0); EOS # 0.2 K/mm3 (0.0-0.50); EOS % 2.8 % (0.0-3.0); LARGE UNSTAINED CELL # 0.1 K/mm3 (0.0-0.4); LARGE UNSTAINED CELL % 2.1 % (0.0-4.0); LYMPH # 1.5 K/mm3 (1.5-4.5); LYMPH % 23.4 % (24.0-44.0); MEAN CORPUSCULAR HEMOGLOBIN 28.1 pg (27.0-33.0); MEAN CORPUSCULAR HGB CONC 32.7 g/dl (32.0-36.5); MONO # 0.4 K/mm3 (0.0-0.8); MONO % 6.7 % (0.0-5.0); NEUTROPHILS # 3.7 K/mm3 (1.8-7.7); NEUTROPHILS % 64.8 % (36.0-66.0); PLATELET COUNT, AUTOMATED 238 k/mm3 (150-450); RED CELL DISTRIBUTION WIDTH 15.4 % (11.5-14.5); WHITE BLOOD COUNT 5.7 K/mm3 (4.0-10.0)
[2016-11-15 06:14] LABS: THYROXINE (T4) 7.6 UG/DL (4.5-12.0)
[2016-11-15 06:22] LABS: ALBUMIN 2.9 GM/DL (3.2-5.2); ALKALINE PHOSPHATASE 98 U/L (45-117); ALT/SGPT 20 U/L (12-78); ANION GAP 7 MEQ/L (8-16); AST/SGOT 19 U/L (15-37); BILIRUBIN,TOTAL 0.3 MG/DL (0.2-1.0); BLOOD UREA NITROGEN 8 MG/DL (7-18); CALCIUM LEVEL 8.6 MG/DL (8.5-10.1); CARBON DIOXIDE LEVEL 27 MEQ/L (21-32); CHLORIDE LEVEL 107 MEQ/L (98-107); CREATININE FOR GFR 0.73 MG/DL (0.55-1.02); GLOMERULAR FILTRATION RATE > 60.0 (>51); GLUCOSE, FASTING 93 MG/DL (70-105); MAGNESIUM LEVEL 1.9 MG/DL (1.8-2.4); SODIUM LEVEL 141 MEQ/L (136-145); TOTAL PROTEIN 7.7 GM/DL (6.4-8.2)
[2016-11-15] MEDS: rOPINIRole 1MG TAB PO SCH ×3 (06:23→21:23)
[2016-11-15] MEDS: PYRIDOSTIGMINE PO SCH ×2 (06:25→21:23)
[2016-11-15] MEDS: DILUENT IV SCH (10:10)
[2016-11-15] MEDS: IMMUNE GLOBULIN IV SCH (10:10)
[2016-11-15] MEDS: ENOXAPARIN 40 MG/0.4 ML SYRINGE (J1650) SC SCH (10:11)
[2016-11-15] MEDS: FOLIC ACID 1 MG TAB PO SCH (10:12)
[2016-11-15] MEDS: FLUTICASONE PROP 0.05% NASAL SPRAY 16 GM (FLONASE) SCH (10:12)
[2016-11-15] MEDS: ONDANSETRON 4MG/2ML VIAL (J2405) IV PRN (11:15)
--- NOTE | 2016-11-15 13:45 | IPNPDOC ---
Date Seen The patient was seen on 11/15/16. Progress Note Hospitalist Progress Note Subjective: Patient reports feeling weak in her "middle section and throat and back and abdomen" Objective: Physical Exam: Vitals: Vital Sign - Last 24 Hours 11/14/16 11/14/16 11/14/16 11/14/16 14:00 20:30 21:10 21:25 Temp 97.6 97.3 97.3 Pulse 64 55 61 61 Resp 18 18 24 16 B/P 122/64 117/59 170/100 177/100 Pulse Ox 96 94 99 99 O2 Delivery Room Air Room Air Room Air Room Air 11/14/16 11/14/16 11/14/16 11/15/16 22:10 22:44 23:00 00:00 Temp 96.1 Pulse 56 Resp 20 14 B/P 110/57 Pulse Ox 97 O2 Delivery Room Air Room Air Room Air 11/15/16 11/15/16 11/15/16 11/15/16 03:37 04:00 05:27 08:00 Temp 96.9 Pulse 53 Resp 16 16 B/P 107/56 Pulse Ox 97 O2 Delivery Room Air Room Air Room Air 11/15/16 11/15/16 11/15/16 11/15/16 08:00 10:15 10:30 11:00 Temp 96.5 96.6 96.4 96.6 Pulse 55 59 59 61 Resp 18 18 18 18 B/P 120/60 114/60 112/65 112/67 Pulse Ox 96 98 97 98 O2 Delivery Room Air Room Air Room Air Room Air 11/15/16 11/15/16 11/15/16 11:38 12:00 12:30 Temp 96.3 96.4 97.0 Pulse 63 60 69 Resp 18 18 18 B/P 110/62 114/62 113/57 Pulse Ox 95 98 99 O2 Delivery Room Air Room Air Room Air General: Awake, alert, no acute distress HEENT: Atraumatic, normocephalic, extraocular movements intact CV: Regular Rate and rhythm, no murmurs rubs or gallops Lungs: Clear to auscultation bilaterally Abd: Soft, nontender nondistended Extremities: No edema Neuro: Alert and oriented, normal speech Psych: Very flat affect, withdrawn Labs and Imaging: Laboratory Tests 11/15/16 05:39 Calcium Level 8.6, Aspartate Amino Transf (AST/SGOT) 19, Alanine Aminotransferase (ALT/SGPT) 20, Alkaline Phosphatase 98, Total Bilirubin 0.3, Total Protein 7.7, Albumin 2.9 L, Red Blood Count 3.89 L, Mean Corpuscular Volume 86.0, Mean Corpuscular Hemoglobin 28.1, Mean Corpuscular Hemoglobin Concent 32.7, Red Cell Distribution Width 15.4 H, Neutrophils (%) (Auto) 64.8, Lymphocytes (%) (Auto) 23.4 L, Monocytes (%) (Auto) 6.7 H, Eosinophils (%) (Auto ) 2.8, Basophils (%) (Auto) 0.2, Neutrophils # (Auto) 3.7, Lymphocytes # (Auto) 1.5, Monocytes # (Auto) 0.4, Eosinophils # (Auto) 0.2, Basophils # (Auto) 0.0 Assessment and Plan: 50-year-old female with psoriatic arthritis, RLS, COPD, seronegative myasthenia gravis who was admitted for difficulty swallowing and vomiting, and is now being treated for possible myasthenia crisis. 1. Myasthenia crisis: The patient has been seen by neurology, who recommends finishing her current course of IVIG. They also recommended continuing the methotrexate and mestinon. Last night, the patient reported overall generalized weakness, so she was moved to the PCU for closer monitoring. We will continue regular NIFs, which have been normal to this point. As per neurology's recommendations, we will also continue the PPI. Esophagram was unrevealing, and the patient has been started on a regular diet. 2. RLS: Continue home Requip 3. COPD: Continue home Flonase and as needed Advair. DVT prophylaxis: Lovenox Dispo: pending clearance by neurology VS, I&O, 24H, Rashard VS, I&O, 24H, Rashard Vital Signs Date Time Temp Pulse Resp B/P Pulse Ox O2 Delivery O2 Flow Rate FiO2 11/15/16 12:30 97.0 69 18 113/57 99 Room Air I&O- Last 24 Hours up to 6 AM 11/15/16 05:59 Intake Total 480 ml Balance 480 ml Laboratory Tests 2 11/14/16 21:32: Bedside Glucose (Misc Panel) 99 11/14/16 21:42: Arterial Blood pH 7.456H, Arterial Blood Partial Pressure CO2 26.7L, Arterial Blood Partial Pressure O2 117.0H, Arterial Blood Total CO2 19.2L, Arterial Blood HCO3 18.4L, Arterial Blood Base Excess -4.2L, Arterial Blood Oxygen Saturation 98.6, Blood Gas Bicarbonate Standard 21.0L 11/15/16 05:39: Blood Urea Nitrogen 8, Creatinine 0.73, Sodium Level 141, Potassium Level 4.0, Chloride Level 107, Carbon Dioxide Level 27, Calcium Level 8.6, Aspartate Amino Transf (AST/SGOT) 19, Alanine Aminotransferase (ALT/SGPT) 20, Alkaline Phosphatase 98, Total Bilirubin 0.3, Total Protein 7.7, Albumin 2.9L, Albumin/ Globulin Ratio 0.60L, Anion Gap 7L, White Blood Count 5.7, Red Blood Count 3.89L , Hemoglobin 10.9#L, Hematocrit 33.4L, Mean Corpuscular Volume 86.0, Mean Corpuscular Hemoglobin 28.1, Mean Corpuscular Hemoglobin Concent 32.7, Red Cell Distribution Width 15.4H, Platelet Count 238, Neutrophils (%) (Auto) 64.8, Lymphocytes (%) (Auto) 23.4L, Monocytes (%) (Auto) 6.7H, Eosinophils (%) (Auto) 2.8, Basophils (%) (Auto) 0.2, Neutrophils # (Auto) 3.7, Lymphocytes # (Auto) 1.5, Monocytes # (Auto) 0.4, Eosinophils # (Auto) 0.2, Basophils # (Auto) 0.0, Free Thyroxine Index 2.6, Glomerular Filtration Rate > 60.0, Large Unclassified Cells # 0.1, Large Unclassified Cells % 2.1, Magnesium Level 1.9, Thyroid Stimulating Hormone (TSH) 1.590, Thyroxine (T4) 7.6, Triiodothyronine (T3) Uptake 34 Laboratory Tests 11/15/16 05:39 Calcium Level 8.6, Aspartate Amino Transf (AST/SGOT) 19, Alanine Aminotransferase (ALT/SGPT) 20, Alkaline Phosphatase 98, Total Bilirubin 0.3, Total Protein 7.7, Albumin 2.9 L, Red Blood Count 3.89 L, Mean Corpuscular Volume 86.0, Mean Corpuscular Hemoglobin 28.1, Mean Corpuscular Hemoglobin Concent 32.7, Red Cell Distribution Width 15.4 H, Neutrophils (%) (Auto) 64.8, Lymphocytes (%) (Auto) 23.4 L, Monocytes (%) (Auto) 6.7 H, Eosinophils (%) (Auto ) 2.8, Basophils (%) (Auto) 0.2, Neutrophils # (Auto) 3.7, Lymphocytes # (Auto) 1.5, Monocytes # (Auto) 0.4, Eosinophils # (Auto) 0.2, Basophils # (Auto) 0.0 JUAN CARLOS REYNOSO Nov 15, 2016 13:45
--- NOTE | 2016-11-15 18:48 | EDDOCDS ---
Physician Documentation [facility] Name: Angelia Arthur Age: 50 yrs Sex: Female : 1965 Arrival Date: 11/13/2016 Time: 13:24 Bed 4 Private MD: Gustavo So T Disposition: 11/13 16:26 Critical Care: Critical care not applicable. pc Disposition: 11/13/16 16:26 Hospitalization ordered by Tea Gunn for Inpatient Admission. Preliminary diagnosis are Dysphagia, Myasthenia gravis - seronegative. - Bed requested for 5 [place]. - Status is Inpatient Admission. rs3 - Condition is Stable. - Problem is an acute exacerbation. - Symptoms are unchanged. HPI: 14:08 This 50 yrs old Female presents to ER via Walkin/Carried/Asstd with pc complaints of Difficulty Swallowing. 14:08 The history is obtained from the patient. She has had difficulty swallowing for 24 pc hours and has vomited pudding and ice cream within the past 12 hours. She has MG and was in the infusion unit for IVIG today and came for evaluation. She feel she is having a flare of her MG. She denies any fevers or chills, Resp or symptoms. At their worst, the symptoms were mild. In the emergency department, the symptoms are unchanged. The patient has experienced similar episodes in the past, a few times. The patient has been recently seen by Dr. Garza. Historical: - Allergies: Azulfidine; Reglan; Stelara; SULFA (SULFONAMIDES); - Home Meds: 1. Ventolin HFA 90 mcg/actuation Nebulizer HFAA 2 puffs every 4-6 hours 2. Pepcid 20 mg Oral tab 1 tab once daily 3. prednisone 20 mg Oral tab once daily 4. Flonase 50 mcg/actuation Nasal spsn 5. ropinirole 1 mg oral tab 1 tab twice a day 6. ropinirole 2 mg oral tab 1 tab daily 7. Cosentyx 150 mg/mL subcutaneous syrg 2 mL every 4 wks 8. pyridostigmine bromide 60 mg/5 mL oral syrp 2.5 mL twice a day 9. mycophenolate mofetil 500 mg oral tab 2 tabs 2 times per day 10. methotrexate injection weekly 7.5 mg 11. folic acid 1 mg Oral tab 1 tab once daily - PMHx: Arthritis; body spasms; myesthenia gravis; Psoriasis; - PSHx: Knee surgery- Right; Spinal Fusion; Hip Arthroplasty, Right; Cardiac stents; Colonoscopy; infusaport placed; Endoscopy, Upper; - The history from nurses notes was reviewed: and I agree with what is documented. - Social history: Smoking status: Patient uses tobacco products, current some day smoker. No barriers to communication noted, The patient speaks fluent Malaysian. - : The pt / caregiver states he / she is not on anticoagulants. Home medication list is obtained from the patient, [employer] import data. - Hospitalizations: : No recent hospitalization is reported. - Exposure Risk Screening:: None identified. - Immunization history:: All immunizations up-to-date. - Family history: Not pertinent. - Social history:: the patient is a non-smoker, the patient does not drink alcohol. 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 pc Exam: 14:08 General Appearance: no acute distress, alert. pc 14:08 EENT: normal eye inspection, ears, nose and throat normal, pharynx normal, mucous membranes moist 14:08 Neck: The exam reveals no acute abnormalities. ROM is normal and painless. No nuchal rigidity is noted.. 14:08 Respiratory: no respiratory distress, normal breath sounds, chest non-tender. 14:08 CVS: regular pulse rate, regular rhythm, normal S1 and S2, no murmurs, strong peripheral pulses. 14:08 Abdomen: soft, non-tender, no organomegaly, normal bowel sounds. 14:08 Back: normal inspection. 14:08 Skin: skin color is normal, warm, dry, diffuse psoriatic patches. 14:08 Extremities: The extremities have a grossly normal appearance, are non-tender, without acute ROM abnormalities. 14:08 Neuro: oriented x 3, cranial nerves normal as tested, no motor deficits, no sensory deficits. 14:08 Psych: normal mood. Vital Signs: 13:26 BP 128 / 76; Pulse 71; Resp 18; Temp 98.5(O); Pulse Ox 99% on R/A; Weight 92.99 kg / ct3 205.01 lbs (R); Height 5 ft. 3 in. (160.02 cm) (R); Pain 6/10; 15:33 BP 137 / 74 (auto/); rs3 15:34 Pulse 68 MON; Pulse Ox 98% ; rs3 16:06 BP 120 / 64 (auto/); rs3 16:07 Pulse 74 MON; Pulse Ox 98% ; rs3 16:21 BP 119 / 66 (auto/); rs3 16:21 Pulse 66 MON; Pulse Ox 97% ; rs3 16:36 BP 134 / 69 (auto/); rs3 16:36 Pulse 82 MON; Pulse Ox 97% ; rs3 16:51 BP 111 / 61 (auto/); rs3 16:51 Pulse 70 MON; Pulse Ox 96% ; rs3 17:06 BP 107 / 63 (auto/); rs3 17:17 BP 107 / 63; Pulse 64 MON; Resp 18; Temp 98(TE); Pulse Ox 97% on R/A; Pain 2/10; rs3 17:21 BP 103 / 58 (auto/); rs3 17:21 Pulse 72 MON; Pulse Ox 96% ; rs3 13:26 Body Mass Index 36.31 (92.99 kg, 160.02 cm) ct3 MDM: 14:05 heparin 100units/mL flush (infusaport) 5 ml IVP once; flush first with 10mL of NS pc followed by heparin ordered. 14:05 Access Infusaport ordered. pc 14:06 CBC with Diff Ordered. EDMS 14:06 MED Profile Ordered. EDMS 14:06 Liver Profile Ordered. EDMS 14:07 Abdomen, Flat\E\Upright,PA Chest Ordered. EDMS 14:08 Differential Diagnosis: myasthenia gravis; difficulty swallowing. Plan: labs, imaging, pc d/w Dr. Garza. 15:13 CBC with Diff Reviewed. pc 15:13 MED Profile Reviewed. pc 15:13 Liver Profile Reviewed. pc 16:06 [facility]LY [facility] Payment Agreement was scanned into [employer] and attached to record. jp5 16:06 Financial registration complete. jp5 16:18 Data reviewed: old medical records, vital signs, nurses notes, lab test results, all pc radiology studies and available results. Test interpretation: LAB - all labs as ordered have been reviewed, interpreted and considered in the overall management of the clinical presentation; X-RAY - interpreted by Radiologist and personally reviewed, 3-view abdomen series; no acute disease. The patient has been re-examined and re-evaluated. There is no appreciated change of the patient's symptoms at this time. Physician consultation: Dr. Fernando Colbert MD regarding patient's condition, and he relays that her diagnosis suspect at best, that other IVIG which she already receives, there is nothing acute he can offer but would consult when admitted . Disposition: The historical points, examination findings, and any diagnostic results supporting the provided diagnosis, were discussed with the patient or legal guardian. The need for further work-up and/or treatment in the hospital was explained. 16:18 Physician consultation: Dr. Tea Gunn regarding admission, and will see patient in ED. 16:52 Admission / Observation Status ordered. EDMS 16:53 URINALYSIS Ordered. EDMS 16:53 URINE CULTURE Ordered. EDMS 17:08 Esophagram Barium Swallow Ordered. EDMS 17:10 NPO DIET ordered. EDMS 17:16 RETICULOCYTE COUNT Ordered. EDMS Administered Medications: 16:19 Not Given (accessed at infusion clinic): heparin 100units/mL flush (infusaport) 5 ml rs3 IVP once; flush first with 10mL of NS followed by heparin Signatures: Dispatcher [employer] EDMS Sushant Brown MD MD Kim Jeffers RN RN rs3 Alise Zuñiga RN RN [id number] Muriel Kim RN RN [id number] Ale Paz [email or web address] The chart was reviewed and I authenticate all verbal orders and agree with the evaluation and treatment provided.Corrections: (The following items were deleted from the chart) 17:09 17:05 CLEAR LIQUIDS DIET ordered. EDMS EDMS 17:19 17:07 IRON (FE) ordered. EDMS EDMS 17:19 17:07 TOTAL IRON BINDING CAPACIT ordered. EDMS EDMS 17:19 17:07 FERRITIN ordered. EDMS EDMS 17:19 17:08 RETICULOCYTE COUNT ordered. EDMS EDMS 17:19 17:08 VITAMIN B12 LEVEL ordered. EDMS EDMS 17:19 17:08 FOLATE ordered. EDMS EDMS Attachments: 16:06 [facility] Payment Agreement [email or web address] Chart Complete MTDD
--- NOTE | 2016-11-15 18:48 | EDDOCDS ---
Nurse's Notes [facility] Name: Angelia Arthur Age: 50 yrs Sex: Female : 1965 Arrival Date: 11/13/2016 Time: 13:24 Bed 4 Private MD: Gustavo So T Diagnosis: Dysphagia;Myasthenia gravis-seronegative Presentation: 11/13 13:31 Presenting complaint: Patient states: that she started having trouble swallowing ms18 yesterday. Pt reports that she gets IV Ig every 14 days. Pt reports pain in her back when she eats. Pt also c/o weakness in her diaphragm and throat. Pt also reports vomiting 4 times this morning. Onset: The symptoms/episode began/occurred yesterday. This patient has not experienced a previous allergic reaction. Anaphylaxis evaluation, the patient reports or I have noted the following symptoms which indicate a significant risk of anaphylaxis: no signs or symptoms of anaphylaxis were noted. Adult Sepsis Screening: The patient does not have new or worsening altered mentation. Patient's respiratory rate is less than 22. Systolic blood pressure is greater than 100. Patient has a qSOFA score of 0- Negative Sepsis Screen. Suicide/Homicide risk assessment- the patient denies having any suicidal and/or homicidal ideations and does not present with any other emotional, behavioral or mental health complaints. Status: Patient is not a patient services manager or dependent. Transition of care: patient was received from infusion clinic. 13:31 Acuity: GONZALES Level 3 ms18 13:31 Method Of Arrival: Walkin/Carried/Asstd ms18 Triage Assessment: 13:40 General: Appears in no apparent distress, obese, uncomfortable, Behavior is appropriate ms18 for age, cooperative. Pain: Location: back and throat Pain currently is 5 out of 10 on a pain scale. HIV screening NA for this visit Offered previously. Neurological: Level of Consciousness is awake, alert, obeys commands, Oriented to person, place, time. Respiratory: Airway is patent Respiratory effort is even, unlabored, Reports shortness of breath. Derm: Skin is pink, warm & dry. SOCK AND STOCKING IRONER: 13:40 LMP 10/15/2016 ms18 Historical: - Allergies: Azulfidine; Reglan; Stelara; SULFA (SULFONAMIDES); - Home Meds: 1. Ventolin HFA 90 mcg/actuation Nebulizer HFAA 2 puffs every 4-6 hours 2. Pepcid 20 mg Oral tab 1 tab once daily 3. prednisone 20 mg Oral tab once daily 4. Flonase 50 mcg/actuation Nasal spsn 5. ropinirole 1 mg oral tab 1 tab twice a day 6. ropinirole 2 mg oral tab 1 tab daily 7. Cosentyx 150 mg/mL subcutaneous syrg 2 mL every 4 wks 8. pyridostigmine bromide 60 mg/5 mL oral syrp 2.5 mL twice a day 9. mycophenolate mofetil 500 mg oral tab 2 tabs 2 times per day 10. methotrexate injection weekly 7.5 mg 11. folic acid 1 mg Oral tab 1 tab once daily - PMHx: Arthritis; body spasms; myesthenia gravis; Psoriasis; - PSHx: Knee surgery- Right; Spinal Fusion; Hip Arthroplasty, Right; Cardiac stents; Colonoscopy; infusaport placed; Endoscopy, Upper; - The history from nurses notes was reviewed: and I agree with what is documented. - Social history: Smoking status: Patient uses tobacco products, current some day smoker. No barriers to communication noted, The patient speaks fluent [place]ibian. - : The pt / caregiver states he / she is not on anticoagulants. Home medication list is obtained from the patient, [employer] import data. - Hospitalizations: : No recent hospitalization is reported. - Exposure Risk Screening:: None identified. - Immunization history:: All immunizations up-to-date. - Family history: Not pertinent. - Social history:: the patient is a non-smoker, the patient does not drink alcohol. Screenin:55 Screening information is obtained from the patient. Fall risk: No risks identified. rs3 Assistance ADL's: requires no assistance with activities of daily living. Abuse/DV Screen: The patient / caregiver reports he/she is: not in a situation that causes fear, pain or injury. Nutritional screening: No deficits noted. Advance Directives: Currently, there is no health care proxy. home support is adequate. Assessment: 13:56 General: Appears in no apparent distress, Behavior is appropriate for age, cooperative. rs3 Pain: Location: thoracic area. Neurological: Level of Consciousness is. Respiratory: Breath sounds with crackles in left posterior lower lobe, right posterior middle lobe and right posterior lower lobe Breath sounds with wheezes bilaterally. Respiratory: Airway is patent Respiratory effort is even, unlabored, Respiratory pattern is regular, symmetrical. Derm: Skin is pink, warm & dry. 14:50 General: Appears in no apparent distress, returned from x-ray. stable. tolerated well. rs3 waiting for lab results. 15:50 General: Appears in no apparent distress, Behavior is appropriate for age, ambulated to rs3 bathroom. tolerated well. reports of mid back pain unchanged. attending provider made aware. breathes easy. denies of acute distress. Able to maintain oral secretion swallowing easily. 16:23 General: Appears in no apparent distress, Behavior is cooperative, patient resting rs3 comfortable on stretcher. denies of acute distress. breathes easy. . 17:30 General: Appears in no apparent distress, Behavior is appropriate for age, cooperative. rs3 Pain: Location: back and thoracic area. Neurological: Level of Consciousness is awake, alert, Oriented to person, place, time, [employer] are equal bilaterally Moves all extremities. Cardiovascular: Capillary refill < 3 seconds Heart tones S1 S2 present. Respiratory: Airway is patent Respiratory effort is even, unlabored, Respiratory pattern is regular, symmetrical. GI: Abdomen is non- distended Bowel sounds present X 4 quads. : Urine is clear. Derm: Skin is pink, warm & dry. Vital Signs: 13:26 BP 128 / 76; Pulse 71; Resp 18; Temp 98.5(O); Pulse Ox 99% on R/A; Weight 92.99 kg (R); ct3 Height 5 ft. 3 in. (160.02 cm) (R); Pain 6/10; 15:33 BP 137 / 74 (auto/); rs3 15:34 Pulse 68 MON; Pulse Ox 98% ; rs3 16:06 BP 120 / 64 (auto/); rs3 16:07 Pulse 74 MON; Pulse Ox 98% ; rs3 16:21 BP 119 / 66 (auto/); rs3 16:21 Pulse 66 MON; Pulse Ox 97% ; rs3 16:36 BP 134 / 69 (auto/); rs3 16:36 Pulse 82 MON; Pulse Ox 97% ; rs3 16:51 BP 111 / 61 (auto/); rs3 16:51 Pulse 70 MON; Pulse Ox 96% ; rs3 17:06 BP 107 / 63 (auto/); rs3 17:17 BP 107 / 63; Pulse 64 MON; Resp 18; Temp 98(TE); Pulse Ox 97% on R/A; Pain 2/10; rs3 17:21 BP 103 / 58 (auto/); rs3 17:21 Pulse 72 MON; Pulse Ox 96% ; rs3 13:26 Body Mass Index 36.31 (92.99 kg, 160.02 cm) ct3 Vitals: 13:26 Log In Time: November 13, 2016 at 13:23. ct3 ED Course: 13:25 Patient visited by Helen Arevalo PCA. ct3 13:25 Gustavo So is Private Physician. ct3 13:25 Patient moved to Waiting ct3 13:27 Patient moved to Pre RCE ct3 13:34 Triage Initiated ms18 13:42 Kim Jeffers RN is Primary Nurse. ms18 13:42 Patient moved to 4 ms18 13:45 Sushant Brown MD is Attending Physician. pc 13:55 Patient visited by Kim Jeffers RN. rs3 14:04 Patient visited by Sushant Brown MD. pc 14:15 Liver Profile Sent. rs3 14:15 MED Profile Sent. rs3 14:15 CBC with Diff Sent. rs3 14:53 Patient visited by Kim Jeffers RN. rs3 15:31 Patient visited by Kim Jeffers RN. rs3 15:34 Abdomen, Flat\E\Upright,PA Chest Returned. EDMS 16:06 [facility] Payment Agreement was scanned into [employer] and attached to record. jp5 16:19 Patient visited by Kim Jeffers RN. rs3 16:22 Maintain field IV. Dressing intact. Good blood return noted. rs3 16:26 Tea Gunn is Hospitalizing Provider. pc 17:31 No procedures done that require assistance. rs3 17:32 The patient / caregiver is instructed regarding the plan of care and ED course. rs3 Administered Medications: 16:19 Not Given (accessed at infusion clinic): heparin 100units/mL flush (infusaport) 5 ml rs3 IVP once; flush first with 10mL of NS followed by heparin Order Results: Lab Order: CBC with Diff; SPEC'M 11/13/16 14:13 Test: WHITE BLOOD COUNT; Value: 9.5; Range: 4.0-10.0; Units: K/mm3; Status: F Test: RED BLOOD COUNT; Value: 4.18; Range: 4.00-5.40; Units: M/mm3; Status: F Test: HEMOGLOBIN; Value: 11.9; Range: 12.0-16.0; Abnormal: Below low normal; Units: g/dl; Status: F Test: HEMATOCRIT; Value: 35.8; Range: 36.0-47.0; Abnormal: Below low normal; Units: %; Status: F Test: MEAN CORPUSCULAR VOLUME; Value: 85.7; Range: 80.0-96.0; Units: fl; Status: F Test: MEAN CORPUSCULAR HEMOGLOBIN; Value: 28.4; Range: 27.0-33.0; Units: pg; Status: F Test: MEAN CORPUSCULAR HGB CONC; Value: 33.1; Range: 32.0-36.5; Units: g/dl; Status: F Test: RED CELL DISTRIBUTION WIDTH; Value: 14.8; Range: 11.5-14.5; Abnormal: Above high normal; Units: %; Status: F Test: PLATELET COUNT, AUTOMATED; Value: 274; Range: 150-450; Units: k/mm3; Status: F Test: NEUTROPHILS %; Value: 68.3; Range: 36.0-66.0; Abnormal: Above high normal; Units: %; Status: F Test: LYMPH %; Value: 22.8; Range: 24.0-44.0; Abnormal: Below low normal; Units: %; Status: F Test: MONO %; Value: 4.4; Range: 0.0-5.0; Units: %; Status: F Test: EOS %; Value: 2.3; Range: 0.0-3.0; Units: %; Status: F Test: BASO %; Value: 0.2; Range: 0.0-1.0; Units: %; Status: F Test: LARGE UNSTAINED CELL %; Value: 2.0; Range: 0.0-4.0; Units: %; Status: F Test: NEUTROPHILS #; Value: 6.5; Range: 1.8-7.7; Units: K/mm3; Status: F Test: LYMPH #; Value: 2.2; Range: 1.5-4.5; Units: K/mm3; Status: F Test: MONO #; Value: 0.4; Range: 0.0-0.8; Units: K/mm3; Status: F Test: EOS #; Value: 0.2; Range: 0.0-0.50; Units: K/mm3; Status: F Test: BASO #; Value: 0.0; Range: 0.0-0.2; Units: K/mm3; Status: F Test: LARGE UNSTAINED CELL #; Value: 0.2; Range: 0.0-0.4; Units: K/mm3; Status: F Lab Order: MED Profile; SPEC'M 11/13/16 14:13 Test: GLUCOSE, FASTING; Value: 100; Range: 70-105; Units: MG/DL; Status: F Test: BLOOD UREA NITROGEN; Value: 10; Range: 7-18; Units: MG/DL; Status: F Test: CREATININE FOR GFR; Value: 0.65; Range: 0.55-1.02; Units: MG/DL; Status: F Test: GLOMERULAR FILTRATION RATE; Value: > 60.0; Range: >51; Status: F Test: SODIUM LEVEL; Value: 141; Range: 136-145; Units: MEQ/L; Status: F Test: POTASSIUM SERUM; Value: 3.9; Range: 3.5-5.1; Units: MEQ/L; Status: F Test: CHLORIDE LEVEL; Value: 107; Range: 98-107; Units: MEQ/L; Status: F Test: CARBON DIOXIDE LEVEL; Value: 28; Range: 21-32; Units: MEQ/L; Status: F Test: ANION GAP; Value: 6; Range: 8-16; Abnormal: Below low normal; Units: MEQ/L; Status: F Test: CALCIUM LEVEL; Value: 8.4; Range: 8.5-10.1; Abnormal: Below low normal; Units: MG/DL; Status: F Test Note: ; Units are mL/min/1.73 m2 Chronic Kidney Disease Staging per NKF: Stage I & II GFR >=60 Normal to Mildly Decreased Stage III GFR 30-59 Moderately Decreased Stage IV GFR 15-29 Severely Decreased Stage V GFR <15 Very Little GFR Left ESRD GFR <15 on MANAGER STAR Lab Order: Liver Profile; [facility]13 Test: AST/SGOT; Value: 17; Range: 15-37; Units: U/L; Status: F Test: ALT/SGPT; Value: 25; Range: 12-78; Units: U/L; Status: F Test: ALKALINE PHOSPHATASE; Value: 111; Range: 45-117; Units: U/L; Status: F Test: BILIRUBIN,TOTAL; Value: 0.2; Range: 0.2-1.0; Units: MG/DL; Status: F Test: BILIRUBIN,DIRECT; Value: < 0.1; Range: 0.0-0.2; Units: MG/DL; Status: F Test: TOTAL PROTEIN; Value: 8.2; Range: 6.4-8.2; Units: GM/DL; Status: F Test: ALBUMIN; Value: 3.1; Range: 3.2-5.2; Abnormal: Below low normal; Units: GM/DL; Status: F Test: ALBUMIN/GLOBULIN RATIO; Value: 0.61; Range: 1.00-1.93; Abnormal: Below low normal; Status: F Lab Order: RETICULOCYTE COUNT; [facility] 11/13/16 14:13 Test: RETICULOCYTE % [id number]; Value: 1.60; Range: 0.5-1.5; Abnormal: Above high normal; Units: %; Status: F Test: RETICULOCYTE ABSOLUTE [id number]; Value: 65; Range: 17-77; Units: x10(9)/L; Status: F Test: RETIC HEMOGLOBIN CONTENT CHr; Value: 33.1; Range: 24-36; Units: PG; Status: F Lab Order: TOTAL IRON BINDING CAPACIT; [facility] 14:13 Test: IRON (FE); Value: 41; Range: 50-170; Abnormal: Below low normal; Units: UG/DL; Status: F Test: TOTAL IRON BINDING CAPACITY; Value: 307; Range: 250-450; Units: UG/DL; Status: F Test: PERCENT SATURATION; Value: 13.4; Range: 13.2-37.4; Units: %; Status: F Lab Order: VITAMIN B12 LEVEL; [facility] 11/13[facility]16 14:13 Test: VITAMIN B12 LEVEL; Range: 247-911; Units: PG/ML; Status: I Lab Order: FOLATE; SPEC'M 11/13/16 14:13 Test: FOLATE; Range: >5.4; Units: NG/ML; Status: I Lab Order: FERRITIN; SPEC'M 11/13/16 14:13 Test: FERRITIN; Value: 72; Range: 8-252; Units: NG/ML; Status: F Radiology Order: Abdomen, Flat\E\Upright,PA Chest Test: Abdomen, Flat\E\Upright,PA Chest REASON FOR EXAMINATION: Abdomen Pain; Abdominal series: Three views.; ; History: Abdominal pain.; ; Comparison chest x-ray June 15, 2016.; ; Findings: There is a right subclavian Yvphwz-T-Sepz catheter with its tip in the; expected location of the superior vena cava. Heart is not enlarged. Lungs are; well inflated and clear. There is no evidence of infiltrate or free; subdiaphragmatic air.; ; Supine and erect views of the abdomen demonstrate metallic fusion apparatus at; the L5-S1 spinous process level and some degenerative disc changes in the lumbar; spine. The bowel gas pattern is unremarkable. Flank stripes and psoas margins; are intact. No mass, organomegaly or pathologic calcification is seen.; ; Impression:; ; Negative abdominal series.; ; ; ; ; Unreviewed; Outcome: 16:26 Decision to Hospitalize by Provider. 17:31 Discharge Assessment: patient administered narcotics - no. The following High Risk rs3 Discharge criteria are identified: None. Admitted to Med/Surg accompanied by tech, via stretcher, with chart. Condition: stable. No special radiology studies were completed. Admission hand-off: Report Faxed Fax receipt verified by unit staff. Property :Personal belongings accompany Pt. 17:47 Patient left the ED. rs3 Signatures: Dispatcher [employer] EDMS Sushant Brown MD MD pc Soosairaj, Rosemary, RN RN rs3 Helen Arevalo, JULIO CÉSAR ASSET PROTECTION SPECIALIST ct3 Alise Zuñiga RN RN ms18 Ale Paz jp5 Corrections: (The following items were deleted from the chart) 17:17 17:06 BP 107 / 63; Pulse 64bpm; MonitorResp 18bpm; Pulse Ox 97% RA; Temp 98F Temporal; rs3 Pain 2/10; rs3 Chart Complete MTDD
[2016-11-15] MEDS: PANTOPRAZOLE 40MG INJ (PROTONIX) (C9113) IV SCH (21:22)
[2016-11-16] VITALS (7 sets, daily range): BP systolic 101–135; BP diastolic 57–72; PULSE 62–68; O2SAT 97–98
[2016-11-16] MEDS: ONDANSETRON 4MG/2ML VIAL (J2405) IV PRN (04:07)
[2016-11-16] MEDS: rOPINIRole 1MG TAB PO SCH ×3 (06:03→20:52)
[2016-11-16] MEDS: ACETAMINOPHEN 325 MG/10.15 ML UDC PO PRN ×3 (06:05→21:06)
[2016-11-16 06:21] LABS: BASO % 0.2 % (0.0-1.0); EOS # 0.1 K/mm3 (0.0-0.50); EOS % 1.8 % (0.0-3.0); LARGE UNSTAINED CELL # 0.1 K/mm3 (0.0-0.4); LARGE UNSTAINED CELL % 2.5 % (0.0-4.0); LYMPH # 1.4 K/mm3 (1.5-4.5); LYMPH % 27.4 % (24.0-44.0); MEAN CORPUSCULAR HEMOGLOBIN 29.4 pg (27.0-33.0); MEAN CORPUSCULAR HGB CONC 34.3 g/dl (32.0-36.5); MEAN CORPUSCULAR VOLUME 85.7 fl (80.0-96.0); MONO # 0.3 K/mm3 (0.0-0.8); MONO % 5.9 % (0.0-5.0); NEUTROPHILS # 3.2 K/mm3 (1.8-7.7); NEUTROPHILS % 62.1 % (36.0-66.0); PLATELET COUNT, AUTOMATED 232 k/mm3 (150-450); RED CELL DISTRIBUTION WIDTH 15.2 % (11.5-14.5); WHITE BLOOD COUNT 5.1 K/mm3 (4.0-10.0)
[2016-11-16 06:52] LABS: ALBUMIN 2.9 GM/DL (3.2-5.2); ALKALINE PHOSPHATASE 99 U/L (45-117); ALT/SGPT 23 U/L (12-78); ANION GAP 5 MEQ/L (8-16); AST/SGOT 18 U/L (15-37); BILIRUBIN,TOTAL 0.2 MG/DL (0.2-1.0); BLOOD UREA NITROGEN 9 MG/DL (7-18); CALCIUM LEVEL 8.3 MG/DL (8.5-10.1); CARBON DIOXIDE LEVEL 28 MEQ/L (21-32); CHLORIDE LEVEL 107 MEQ/L (98-107); CREATININE FOR GFR 0.82 MG/DL (0.55-1.02); GLOMERULAR FILTRATION RATE > 60.0 (>51); GLUCOSE, FASTING 96 MG/DL (70-105); MAGNESIUM LEVEL 1.9 MG/DL (1.8-2.4); POTASSIUM SERUM 3.8 MEQ/L (3.5-5.1); SODIUM LEVEL 140 MEQ/L (136-145); TOTAL PROTEIN 8.7 GM/DL (6.4-8.2)
[2016-11-16] MEDS: SODIUM CHLORIDE 0.9% INJ 10 ML SYR IV SCH (08:56)
[2016-11-16] MEDS: ENOXAPARIN 40 MG/0.4 ML SYRINGE (J1650) SC SCH (08:56)
[2016-11-16] MEDS: FOLIC ACID 1 MG TAB PO SCH (08:57)
[2016-11-16] MEDS: PYRIDOSTIGMINE PO SCH ×2 (08:58→20:30)
[2016-11-16] MEDS: FLUTICASONE PROP 0.05% NASAL SPRAY 16 GM (FLONASE) SCH (08:58)
--- NOTE | 2016-11-16 13:10 | IPNPDOC ---
Date Seen The patient was seen on 11/16/16. Progress Note Hospitalist Progress Note Subjective: Patient reports feeling heaviness and pressure around her diaphraghm , as well as nausea; tolerated eggs and pudding this morning; had chest pain overnight Objective: Physical Exam: Vitals: Vital Sign - Last 24 Hours 11/15/16 11/15/16 11/15/16 11/15/16 16:00 16:00 20:00 20:00 Temp 96.7 Pulse 61 Resp 18 B/P 129/69 Pulse Ox 95 98 O2 Delivery Room Air Room Air Room Air Room Air 11/15/16 11/15/16 11/15/16 11/16/16 20:00 20:02 23:37 00:00 Temp 97.0 96.2 Pulse 50 65 60 Resp 18 18 B/P 109/69 118/55 Pulse Ox 96 97 98 O2 Delivery Room Air Room Air Room Air 11/16/16 11/16/16 11/16/16 11/16/16 00:00 00:00 04:00 04:00 Pulse 62 68 O2 Delivery Room Air Room Air 11/16/16 11/16/16 11/16/16 11/16/16 04:00 05:31 08:00 08:00 Temp 97.1 96.5 Pulse 58 62 Resp 18 18 B/P 101/57 103/70 Pulse Ox 98 94 95 97 O2 Delivery Room Air Room Air Room Air Room Air 11/16/16 11/16/16 11/16/16 08:02 12:00 12:36 Temp 96.5 Pulse 56 Resp 18 B/P 109/66 Pulse Ox 18 O2 Delivery Room Air Room Air Room Air General: Awake, alert, no acute distress HEENT: Atraumatic, normocephalic, extraocular movements intact CV: Regular Rate and rhythm, no murmurs rubs or gallops Lungs: Clear to auscultation bilaterally, no wheeze Abd: Soft, nontender nondistended, normal BS Extremities: No edema Neuro: Alert and oriented, normal speech Psych: more animated than yesterday Labs and Imaging: Laboratory Tests 11/16/16 06:15 Calcium Level 8.3 L, Aspartate Amino Transf (AST/SGOT) 18, Alanine Aminotransferase (ALT/SGPT) 23, Total Creatine Kinase 96, Alkaline Phosphatase 99, Total Bilirubin 0.2, Total Protein 8.7 H, Albumin 2.9 L, Red Blood Count 3.87 L, Mean Corpuscular Volume 85.7, Mean Corpuscular Hemoglobin 29.4, Mean Corpuscular Hemoglobin Concent 34.3, Red Cell Distribution Width 15.2 H, Neutrophils (%) (Auto) 62.1, Lymphocytes (%) (Auto) 27.4, Monocytes (%) (Auto) 5.9 H, Eosinophils (%) (Auto) 1.8, Basophils (%) (Auto) 0.2, Neutrophils # (Auto ) 3.2, Lymphocytes # (Auto) 1.4 L, Monocytes # (Auto) 0.3, Eosinophils # (Auto) 0.1, Basophils # (Auto) 0.0 Assessment and Plan: 50-year-old female with psoriatic arthritis, RLS, COPD, seronegative myasthenia gravis who was admitted for difficulty swallowing and vomiting, and is now being treated for possible myasthenia crisis. 1. Myasthenia crisis: The patient has been seen by neurology, who recommends finishing her current course of IVIG. They also recommended continuing the methotrexate and mestinon. Two nights ago, the patient reported overall generalized weakness, so she was moved to the PCU for closer monitoring; NIFs have been normal. Last night, she reported chest pain but trops have been normal. As per neurology's recommendations, we will also continue the PPI. Esophagram was unrevealing, and the patient has been started on a regular diet. 2. RLS: Continue home Requip 3. COPD: Continue home Flonase and as needed Advair. DVT prophylaxis: Lovenox Dispo: pending reevaluation and clearance by neurology VS, I&O, 24H, Rashard VS, I&O, 24H, Rashard Vital Signs Date Time Temp Pulse Resp B/P Pulse Ox O2 Delivery O2 Flow Rate FiO2 11/16/16 12:36 Room Air 11/16/16 12:00 96.5 56 18 109/66 18 I&O- Last 24 Hours up to 6 AM 11/16/16 06:00 Intake Total 1020 ml Output Total 800 ml Balance 220 ml Laboratory Tests 2 11/16/16 06:15: Blood Urea Nitrogen 9, Creatinine 0.82, Sodium Level 140, Potassium Level 3.8, Chloride Level 107, Carbon Dioxide Level 28, Calcium Level 8.3L, Aspartate Amino Transf (AST/SGOT) 18, Alanine Aminotransferase (ALT/SGPT) 23, Total Creatine Kinase 96, Alkaline Phosphatase 99, Total Bilirubin 0.2, Total Protein 8.7H, Albumin 2.9L, Albumin/Globulin Ratio 0.50L, Anion Gap 5L, White Blood Count 5.1, Red Blood Count 3.87L, Hemoglobin 11.4L, Hematocrit 33.2L, Mean Corpuscular Volume 85.7, Mean Corpuscular Hemoglobin 29.4, Mean Corpuscular Hemoglobin Concent 34.3, Red Cell Distribution Width 15.2H, Platelet Count 232, Neutrophils (%) (Auto) 62.1, Lymphocytes (%) (Auto) 27.4, Monocytes (%) (Auto) 5.9H, Eosinophils (%) (Auto) 1.8, Basophils (%) (Auto) 0.2, Neutrophils # (Auto ) 3.2, Lymphocytes # (Auto) 1.4L, Monocytes # (Auto) 0.3, Eosinophils # (Auto) 0.1, Basophils # (Auto) 0.0, Creatine Kinase MB 1.0, Creatine Kinase MB Relative Index 1.04, Glomerular Filtration Rate > 60.0, Large Unclassified Cells # 0.1, Large Unclassified Cells % 2.5, Magnesium Level 1.9, Troponin I < 0.02 Laboratory Tests 11/16/16 06:15 Calcium Level 8.3 L, Aspartate Amino Transf (AST/SGOT) 18, Alanine Aminotransferase (ALT/SGPT) 23, Total Creatine Kinase 96, Alkaline Phosphatase 99, Total Bilirubin 0.2, Total Protein 8.7 H, Albumin 2.9 L, Red Blood Count 3.87 L, Mean Corpuscular Volume 85.7, Mean Corpuscular Hemoglobin 29.4, Mean Corpuscular Hemoglobin Concent 34.3, Red Cell Distribution Width 15.2 H, Neutrophils (%) (Auto) 62.1, Lymphocytes (%) (Auto) 27.4, Monocytes (%) (Auto) 5.9 H, Eosinophils (%) (Auto) 1.8, Basophils (%) (Auto) 0.2, Neutrophils # (Auto ) 3.2, Lymphocytes # (Auto) 1.4 L, Monocytes # (Auto) 0.3, Eosinophils # (Auto) 0.1, Basophils # (Auto) 0.0 JUAN CARLOS REYNOSO Nov 16, 2016 13:09
--- NOTE | 2016-11-16 13:25 | ECGEPIP ---
Stationary ECG Study [facility] Test Date: 2016-11-16 Pat Name: NHUNG MILLER Department: Room: [place] [address] Gender: F Special [employer]: : 1965 Requested By: LONI PATEL Order Number: [id number] Reading MD: Adia Meadows Measurements Intervals [place] Rate: 64 P: 46 CO: 189 QRS: 38 QRSD: 97 T: 32 QT: 400 QTc: 415 Interpretive Statements SINUS RHYTHM LOW QRS VOLTAGE IN PRECORDIAL LEADS BORDERLINE SIMILAR TO 04/19/16 Electronically Signed On 11-16-2016 13:25:12 EST by Adia Meadows
[2016-11-16] MEDS ORDERED: METHOTREXATE 50MG/2ML VIAL (J9260) IM SCH (14:00)
[2016-11-16] MEDS: PANTOPRAZOLE 40MG INJ (PROTONIX) (C9113) IV SCH (20:52)
[2016-11-16] MEDS: SODIUM CHLORIDE 0.9% INJ 10 ML SYR IV PRN (20:58)
[2016-11-17] VITALS: BP 109/63
[2016-11-17] MEDS: ACETAMINOPHEN 325 MG/10.15 ML UDC PO PRN (03:50)
[2016-11-17 04:00] VITALS: BP 111/65
[2016-11-17] MEDS: rOPINIRole 1MG TAB PO SCH (05:01)
[2016-11-17] MEDS: SODIUM CHLORIDE 0.9% INJ 10 ML SYR IV PRN (05:07)
[2016-11-17 05:26] LABS: BASO % 0.3 % (0.0-1.0); EOS # 0.1 K/mm3 (0.0-0.50); EOS % 1.3 % (0.0-3.0); LARGE UNSTAINED CELL # 0.1 K/mm3 (0.0-0.4); LARGE UNSTAINED CELL % 2.1 % (0.0-4.0); LYMPH # 1.8 K/mm3 (1.5-4.5); LYMPH % 30.9 % (24.0-44.0); MEAN CORPUSCULAR HEMOGLOBIN 28.2 pg (27.0-33.0); MEAN CORPUSCULAR HGB CONC 32.5 g/dl (32.0-36.5); MEAN CORPUSCULAR VOLUME 86.5 fl (80.0-96.0); MONO # 0.4 K/mm3 (0.0-0.8); MONO % 7.4 % (0.0-5.0); NEUTROPHILS # 3.4 K/mm3 (1.8-7.7); PLATELET COUNT, AUTOMATED 222 k/mm3 (150-450); RED CELL DISTRIBUTION WIDTH 15.1 % (11.5-14.5); WHITE BLOOD COUNT 5.8 K/mm3 (4.0-10.0)
[2016-11-17 05:58] LABS: ALBUMIN 2.9 GM/DL (3.2-5.2); ALBUMIN/GLOBULIN RATIO 0.59 (1.00-1.93); ALKALINE PHOSPHATASE 105 U/L (45-117); ALT/SGPT 26 U/L (12-78); ANION GAP 6 MEQ/L (8-16); AST/SGOT 21 U/L (15-37); BILIRUBIN,TOTAL 0.1 MG/DL (0.2-1.0); BLOOD UREA NITROGEN 9 MG/DL (7-18); CALCIUM LEVEL 8.5 MG/DL (8.5-10.1); CARBON DIOXIDE LEVEL 30 MEQ/L (21-32); CHLORIDE LEVEL 105 MEQ/L (98-107); CREATININE FOR GFR 0.86 MG/DL (0.55-1.02); GLOMERULAR FILTRATION RATE > 60.0 (>51); GLUCOSE, FASTING 105 MG/DL (70-105); MAGNESIUM LEVEL 1.8 MG/DL (1.8-2.4); POTASSIUM SERUM 3.9 MEQ/L (3.5-5.1); SODIUM LEVEL 141 MEQ/L (136-145); TOTAL PROTEIN 7.8 GM/DL (6.4-8.2)
[2016-11-17 08:00] VITALS: BP 113/67
[2016-11-17] MEDS: ENOXAPARIN 40 MG/0.4 ML SYRINGE (J1650) SC SCH (09:00)
[2016-11-17] MEDS: FOLIC ACID 1 MG TAB PO SCH (09:07)
[2016-11-17] MEDS: PYRIDOSTIGMINE PO SCH (09:08)
[2016-11-17] MEDS: FLUTICASONE PROP 0.05% NASAL SPRAY 16 GM (FLONASE) SCH (09:08)
[2016-11-17] MEDS: SODIUM CHLORIDE 0.9% INJ 10 ML SYR IV SCH (09:09)
--- NOTE | 2016-11-17 13:33 | DSES ---
DATE OF ADMISSION: 11/16/2016 DATE OF DISCHARGE: 11/17/2016 DISCHARGE DIAGNOSIS: Myasthenia crisis. SECONDARY DIAGNOSES: 1. Restless leg syndrome. 2. Decompensated chronic obstructive pulmonary disease (COPD). HOSPITALIZATION COURSE: The patient is a 50-year-old female with seronegative myasthenia gravis who was admitted for difficulty swallowing and vomiting. She has been followed by Dr. Garza and the neurology people on the outpatient setting for quite some time. The patient did have acute worsening of her weakness and has reported heavy breathing. She was transferred to the medical/surgical floor where she was admitted to the progressive care unit (PCU) and monitored closely. ABG, negative inspiratory force (NIF) and close monitoring did not reveal any significant change in her clinical status. She remained in the hospital for several days while undergoing monitoring. While she was in the hospital, she was receiving her regular methotrexate and Mestinon. She was seen in consultation by neurology who recommended we continue her home treatments. She was seen by physical therapy (PT) on 11/16/2016 who also felt that the patient was safe for dispositioning to her previous living environment. SUBJECTIVE: Today, the patient tells me that she feels better. She is not having weakness. She is not having any dysphagia. She is not having any chest heaviness, difficulty breathing, chest pain, nausea, vomiting, or diarrhea. OBJECTIVE: VITAL SIGNS: Temperature 96.9, pulse 56, respiratory rate 20, blood pressure 113/67, oxygen saturation 98% on room air. GENERAL: She is an obese, middle-aged, female sitting in bed. She sits up to greet me as I enter the room. She does not appear to be in any acute distress. HEENT: Cranial nerves II through XII are grossly intact. She has moist mucous membranes. No elevation of central venous pressure. CARDIOVASCULAR EXAM: S1, S2 regular. RESPIRATORY EXAM: Clear. ABDOMINAL EXAM: Obese. EXTREMITIES: No clubbing, cyanosis or edema. Strength is 5/5 in all extremities. NEUROLOGICAL EXAM: Nonfocal. LABORATORY STUDIES: WBC 5.8, hemoglobin 10.8, hematocrit 33.3, platelet count 222. Chemistry panel: Sodium 141, potassium 3.9, chloride 105, bicarbonate 30, BUN 9, creatinine 0.8. IMAGING: The patient did have a CT scan of the head, which was a negative study. She also had a CT scan of the neck, which revealed no acute soft tissue abnormality and a patent airway. There was some heterogenicity of the thyroid gland that could be followed in the outpatient setting. There was moderate degenerative disc disease at C5-6 and C6-7. She did also have an esophagram, which revealed no abnormality. Abdominal plain film was negative abdominal series. ASSESSMENT AND PLAN: This is a 50-year-old female with seronegative myasthenia gravis. 1. Myasthenia crisis. The patient was seen by neurology who recommended continuing with her current course of IVIG, as well as methotrexate and Mestinon. Her NIFs have been normal. Her neurological examination has been unremarkable. I agree with neurology at this point. She is tolerating a regular. She could likely be dispositioned home to her previous living environment. Followup as scheduled with neurology. 2. Restless leg syndrome. The patient is continued on Requip. 3. Chronic obstructive pulmonary disease (COPD). The patient is on Flonase and Advair. 4. Deep vein thrombosis (DVT) prophylaxis. The patient is on Lovenox. DISPOSITION: The patient is being discharged to her previous living environment. Her activity and diet are as prior to admission. She is to followup with her primary care provider in [address] Garza of neurology as scheduled. She is to return to the emergency room if her symptoms worsen. DISCHARGE MEDICATIONS: - acetaminophen 640 mg as needed for pain or fever - Ventolin HFA two puffs every four as needed for shortness of breath - Cosentyx 300 mg every month - Pepcid 20 mg daily - Flonase two sprays nasally daily - folic acid 1 mg daily - methotrexate 7.5 mg on Mondays - Mestinon 2.5 mg twice a day - ropinirole 1 mg twice a day and 2 mg at night - IVIG every two weeks Greater than 30 minutes was spent organizing disposition.
== END 2016-11-17 10:51 | disposition home or self-care (01) | DRG 42 ==
LOC: M ED 13:24 → M ED INP 16:45 → M MS5PR 17:55 → M PCU 11-14 22:13 → OBSVTOIN 11-16 13:10
PROVIDERS: ADMIT Internal Medicine; ATTEND Hospitalist
DX: G70.01 Myasthenia gravis with (acute) exacerbation (principal); L40.50 Arthropathic psoriasis, unspecified; J44.9 Chronic obstructive pulmonary disease, unspecified; G25.81 Restless legs syndrome; D64.9 Anemia, unspecified; K21.9 Gastro-esophageal reflux disease without esophagitis; Z88.2 Allergy status to sulfonamides; Z88.8 Allergy status to other drugs, medicaments and biological substances; Z72.0 Tobacco use; Z79.899 Other long term (current) drug therapy

== ENCOUNTER 2016-11-27 07:55 | Outpatient (CLI) | payer OTHER ==
[~2016-11-27] VITALS: Ht 160 cm; Wt 92.1 kg
[~2016-11-27 07:55] MED LIST changes: +FLON1SPR; +IMMUNE GLOBULIN 10% 10 GM in APPROPRIATE DILUENT 1 EA IV ONE; +IMMUNE GLOBULIN 10% 20 GM in APPROPRIATE DILUENT 1 EA IV ONE; +IVIG INJ; +METH2000 IM; +PEPC1TAB4 PO; +ROPI2TAB PO; +TYLE160S15 PO; +[UNRECOGNIZED DRUG - CODE] PO
[2016-11-27] MEDS ORDERED: SODIUM CHLORIDE 0.9% INJ 10 ML SYR IV SCH (09:00)
[2016-11-27] MEDS ORDERED: ACET160E3 PO (11:02)
== END 2016-11-27 10:55 | disposition home or self-care (01) ==
LOC: M INFU 07:55
PROVIDERS: ATTEND Psychiatry & Neurology Neurology
DX: G70.00 Myasthenia gravis without (acute) exacerbation (principal); Z79.899 Other long term (current) drug therapy; Z88.8 Allergy status to other drugs, medicaments and biological substances; Z88.2 Allergy status to sulfonamides

== ENCOUNTER 2016-12-11 08:52 | Outpatient (CLI) | payer OTHER ==
[~2016-12-11 08:52] MED LIST changes: +ACET160E3 PO; -IMMUNE GLOBULIN 10% 10 GM in APPROPRIATE DILUENT 1 EA IV ONE; -IMMUNE GLOBULIN 10% 20 GM in APPROPRIATE DILUENT 1 EA IV ONE
[2016-12-11] MEDS ORDERED: SODIUM CHLORIDE 0.9% INJ 10 ML SYR IV SCH (09:00)
[2016-12-11] MEDS ORDERED: IMMUNE GLOBULIN 10% 20 GM in APPROPRIATE DILUENT 1 EA IV ONE (09:15)
[2016-12-11] MEDS ORDERED: IMMUNE GLOBULIN 10% 10 GM in APPROPRIATE DILUENT 1 EA IV ONE (09:15)
== END 2016-12-11 12:45 | disposition home or self-care (01) ==
LOC: M INFU 08:52
PROVIDERS: ATTEND Psychiatry & Neurology Neurology
DX: G70.00 Myasthenia gravis without (acute) exacerbation (principal); Z79.899 Other long term (current) drug therapy; Z88.8 Allergy status to other drugs, medicaments and biological substances; Z88.2 Allergy status to sulfonamides

== ENCOUNTER → 2016-12-15 | Outpatient (CLI) | payer OTHER ==
--- NOTE | 2016-12-15 09:52 | REP ---
NUCLEAR GASTRIC EMPTYING SCAN: Following the oral administration of 1.02 mCi of technetium 99m sulfur colloid in two scrambled eggs and 4 ounces of water, multiple images of the upper abdomen are performed in the anterior and posterior projections for 90 minutes. The gastric activity is measured and is plotted on a graph to calculate the gastric emptying time. At the end of 90 minutes, 56% of the ingested activity has emptied from the stomach. This yields a t1/2 of 84 minutes which is normal. IMPRESSION: Normal gastric emptying time. Signed by Chadwick Richards MD 12/15/2016 08:06 P
== END ==
LOC: M RAD 07:23
PROVIDERS: ATTEND Internal Medicine Gastroenterology
DX: K31.84 Gastroparesis (principal)

== ENCOUNTER 2016-12-25 08:52 | Outpatient (CLI) | payer OTHER ==
[2016-12-25] MEDS ORDERED: SODIUM CHLORIDE 0.9% INJ 10 ML SYR IV SCH (09:00)
[2016-12-25] MEDS ORDERED: IMMUNE GLOBULIN 10% 10 GM in APPROPRIATE DILUENT 1 EA IV ONE (09:15)
[2016-12-25] MEDS ORDERED: IMMUNE GLOBULIN 10% 20 GM in APPROPRIATE DILUENT 1 EA IV ONE (09:15)
== END 2016-12-25 12:45 | disposition home or self-care (01) ==
LOC: M INFU 08:52
PROVIDERS: ATTEND Psychiatry & Neurology Neurology
DX: G70.00 Myasthenia gravis without (acute) exacerbation (principal); Z79.899 Other long term (current) drug therapy; Z88.8 Allergy status to other drugs, medicaments and biological substances; Z88.2 Allergy status to sulfonamides

== ENCOUNTER 2017-01-08 08:27 | Outpatient (CLI) | payer OTHER ==
[~2017-01-08] VITALS: Ht 160 cm; Wt 92.1 kg
[2017-01-08] MEDS ORDERED: IMMUNE GLOBULIN 10% 10 GM in APPROPRIATE DILUENT 1 EA IV ONE (08:45)
[2017-01-08] MEDS ORDERED: IMMUNE GLOBULIN 10% 20 GM in APPROPRIATE DILUENT 1 EA IV ONE (08:45)
[2017-01-08] MEDS ORDERED: SODIUM CHLORIDE 0.9% INJ 10 ML SYR IV SCH (09:00)
[2017-01-08] MEDS ORDERED: ONDANSETRON 4 MG ORAL DISINTEGRATING TAB (S0181) SL ONE (11:00)
[2017-01-08] MEDS ORDERED: diphenhydrAMINE 12.5MG/5ML ELIXIR UDC PO ONE (11:00)
[2017-01-08] MEDS ORDERED: ACETAMINOPHEN 325 MG/10.15 ML UDC PO ONE (11:00)
== END 2017-01-08 13:50 | disposition home or self-care (01) ==
LOC: M INFU 08:27
PROVIDERS: ATTEND Psychiatry & Neurology Neurology
DX: G70.00 Myasthenia gravis without (acute) exacerbation (principal)

== ENCOUNTER → 2017-01-15 | Outpatient (CLI) | payer OTHER ==
--- NOTE | 2017-01-26 01:38 | ECWPNPC ---
PATIENT NAME: NHUNG MILLER : 1965 GENDER: FEMALE VISIT DATE: 01/15/2017 DISCHARGE DATE: 01/15/17 1455 VISIT LOCKED DATE TIME: PHYSICIAN: YARED HAGER RESOURCE: YARED HAGER HISTORY OF PRESENT ILLNESS NEW PATIENT CONSULT: 51 Y/O FEMALE WITH LONG HX OF CHRONIC PAIN.WEANED OFF PREDNISONE 60MG DAY FOR 4 MONTHS FOR MYESTHENIA GRAVIS IN AUGUST.PAIN HAS ESCALATED AND HAD NEW ONSET OF GENERALIZED JOINT PAIN.HISTORY OF BACK SURGERY IN NOVEMBER 2012.DID WELL WITH RESOLUTION IN LEFT LEG RADICULAR SYMPTOMS.CONTINUED WITH LOW BACK PAIN.BEGINING OF DECEMBER RIGHT LEG GAVE OUT AND FELL INTO DOOR AND LANDED ON GROUND ON RIGHT SIDE.SINCE THEN HAVING SEVERE INCREASE IN LOW BACK PAIN.PAIN IS RELIEVED BY IBUPROFEN AND PT TO A CERTAIN EXTENT.PAIN IS AGGREVATED BY WALKING,SWEEPING ,MOPPING AND LIFTING.HAS EPISODES OF BOWEL AND BLADDER INCONTINENCE WHICH IS CHRONIC AND RELATED TO MYESTHENIA GRAVIS.RATING PAIN VAS 4/10.DESCRIBES PAIN CRUSHING AND ACHING IN LOW BACK. WHEN DID YOUR PAIN FIRST START? . BRIEFLY DESCRIBE HOW YOUR PAIN STARTED? . HOW DOES YOUR PAIN CHANGE WITH TIME? . DOES YOUR PAIN AWAKEN YOU FROM SLEEP? . HOW MANY HOURS OF SLEEP DO YOU NORMALLY GET? . ANY DIAGNOSTIC TESTING? . FACILITY WHERE TESTS WERE DONE? ____. PAIN TREATMENT TREATMENT YES CANCER HAVE YOU EVER HAD ANY TYPE OF CANCER?NO NO. PAIN SCREENING: PATIENT HAS A COMPLAINT OF ACUTE OR CHRONIC PAIN :YES FALL RISK SCREENING: SCREENING :NO FALLS IN THE PAST YEAR GRIMALDO INVENTORY: QUESTIONNAIRE ASSESSEDYES SCORE VALUE CALCULATED YES SCORE:5 CURRENT MEDICATIONS TAKING GAMUNEX-C 20 GM/200ML SOLUTION INJECTION Q 2 WEEKS TAKING METHOTREXATE (PF) 30 MG/0.6ML SOLUTION AUTO-INJECTOR USES 1.2ML SUBCUTANEOUS WEEKLY TAKING COSENTYX 150 MG/ML SOLUTION PREFILLED SYRINGE USES 2 DOSES SUBCUTANEOUS MONTHLY TAKING MESTINON 60 MG/5ML SYRUP 30MG ORALLY THREE TIMES DAILY TAKING REQUIP 1 MG TABLET ORALLY 3 TIMES DAILY TAKING TYLENOL CHILDRENS 160 MG/5ML SUSPENSION ORALLY NEEDED TAKING MOTRIN 40 MG/ML SUSPENSION ORALLY NEEDED TAKING MIRALAX - POWDER ORALLY NEEDED TAKING TEARS AGAIN NIGHT & DAY 1 DROP OU DAILY TAKING TEARS AGAIN - OINTMENT OPHTHALMIC OU DAILY NEEDED TAKING FOLIC ACID 1 MG TABLET 1 TABLET ORALLY ONCE A DAY DISCONTINUED TESSALON PERLES 100 MG CAPSULE 1 CAPSULE NEEDED ORALLY THREE TIMES A DAY DISCONTINUED ZYRTEC 10 MG TABLET 1 TABLET ORALLY ONCE A DAY DISCONTINUED DAYPRO 600 MG TABLET DIRECTED ORALLY DISCONTINUED MIRAPEX ER 1.5 MG TABLET EXTENDED RELEASE 24 HOUR 1 TABLET ORALLY ONCE A DAY DISCONTINUED CUSTOM DO NOT USE TRAMADOL 50 MG TABLET ONE TAB ORALLY EVERY 4-6 HOURS PRN PAIN DISCONTINUED CITRACAL MAXIMUM 315-250 MG-UNIT TABLET 1 TABLET ORALLY TWICE A DAY DISCONTINUED VITAMIN D3 1000 UNIT CAPSULE 1 CAPSULE ORALLY ONCE A DAY DISCONTINUED BIOTIN 800 MCG TABLET 1 TABLET ORALLY ONCE A DAY DISCONTINUED VITAMIN B1 100 MG TABLET DIRECTED ORALLY DISCONTINUED PROAIR HFA 108 (90 BASE) MCG/ACT AEROSOL SOLUTION 2 PUFFS NEEDED INHALATION EVERY 4 HRS UNKNOWN ALBUTEROL SULFATE HFA 108 MCG/ACT AEROSOL SOLUTION 2 PUFFS NEEDED INHALATION EVERY 4 HRS MEDICATION LIST REVIEWED AND RECONCILED WITH THE PATIENT PAST MEDICAL HISTORY PSORIATIC ARTHRITIS MYASTHENIA GRAVIS RESTLESS LEG SYNDROME GI MOTLITY DIFFICULTIES- GASTROPRESIS ASTHMA LIVER FAILURE FROM MEDS ALLERGIES AZULFIDINE: LIVER FAILURE SULFA (FOR ALLERGY USE ONLY): LIVER FAILURE REGLAN: HALUCINATIONS STELARA: MACULAR EDEMA SURGICAL HISTORY EXPLOATORY LAP, ADHESIONS 1993 RIGHT KNEE SYNORVECTOMY 2013 LUMBAR SPINAL FUSION L5-S1 2014 RIGHT HIP REPAIR 2015 RIGHT POWER INFUSAPORT 2017 CARDIAC CATH 2016 FAMILY HISTORY FATHER: MOTHER: 1 SON(S) , 1 DAUGHTER(S) . HAS 8 SIBLINGS SON- ASHBURGERS SYNDROMEDAUGHTER- ENDOMETRIOTIS. SOCIAL HISTORY GENERAL: TOBACCO USE ARE YOU A:CURRENT SMOKER HOW MANY CIGARETTES A DAY DO YOU SMOKE? FEW DAYS A WEEK PATIENT COUNSELED ON THE DANGERS OF TOBACCO USE AND URGED TO QUIT:01/15/2017 ARE YOU INTERESTED IN QUITTING?THINKING ABOUT QUITTING PREVIOUS QUIT ATTEMPTS?YES, MORE THAN 6 MONTHS AGO. COUNSELED THE PATIENT ON SMOKING CESSATION, EDUCATION [id number]/2017 ALCOHOL SCREENING POINTS0 INTERPRETATIONNEGATIVE RECREATIONAL DRUG USE DRUG USE?NO CAFFEINE CAFFEINE USE?NO LEARNING BARRIERS / SPECIAL NEEDS BARRIERS TO LEARNING?NO HEARING IMPAIRED?NO VISION IMPAIRED?NO LEARNING PREFERENCES?NO PAIN CLINIC PFS, CLERGY, PUBLIC HEALTH REFERRALS PFS REFERRAL NEEDED?NO CLERGY REFERRAL NEEDED?NO PUBLIC HEALTH REFERRAL NEEDED?NO WAS THE PROVIDER NOTIFIED OF ANY PERTINENT INFO?NO PATIENT: ____. ADVANCED DIRECTIVES HEALTH CARE PROXY?YES NAME OF HCP ИРИНА WILCOX DAUGHTER DO YOU HAVE A COPY WITH YOU?NO DO YOU HAVE A DNR?NO HOSPITALIZATION/MAJOR DIAGNOSTIC PROCEDURE MYASYTHNIS CRISIS 2015 HPIV 3 PNEUMONIA 2016 MYASYTHNIA CRISIS 2015 MYASYTHNIA CRISIS 2015 REVIEW OF SYSTEMS CONSTITUTIONAL: ANY CHANGE IN YOUR MEDICAL CONDITION? NO . RECENT ILLNESS DENIES . CHILLS NO . FEVER NO . WEIGHT LOSS DENIES . INFECTION: DO YOU HAVE NEW INFECTIONS? NO . DO YOU HAVE HISTORY OF MRSA? NO . MUSCULOSKELETAL: ANY NEW PATTERNS OF PAIN OR NUMBNESS? YES, BACK AND JOINT PAIN INCREASED RESENTLY. . SYTEMIC LUPUS NO . GASTROENTEROLOGY: ANY NEW CHANGE IN BOWEL CONTROL? NO . BARRETTS ESOPHAGUS NO . CIRRHOSIS NO . HEPATITIS NO . LIVER FAILURE YES, HX OF FROM MEDS . ACID REFLUX NO . UNEXPLAINED WEIGHT LOSS NO . GENITOURINARY: ANY NEW CHANGE IN BLADDER CONTROL? YES, URINARY INCONTIANCE . IS THERE A CHANCE YOU COULD BE ? NO . HEMATOLOGY/LYMPH: DO YOU TAKE ANY BLOOD THINNERS? (FOR EXAMPLE- COUMADIN, PLAVIX, AGGRENOX, PLATEL, PRADAXA, OR XARELTO) NO . WHEN WAS YOUR LAST DOSE? DATE: TIME: . LOW PLATELET COUNT NO . SICKLE CELL DISEASE NO . VON WILLIEBRANDS NO . FACTOR V LEIDEN NO . THALLASEMIA NO . ANEMIA NO . EASY BRUISING NO . NEUROLOGY: HAVE YOU FALLEN IN THE PAST 6 MONTHS? YES, BACK PAIN WEAKNESS . ANY NEW EXTREMITY NUMBNESS OR WEAKNESS? NO . HEAD INJURY NO . DEMENTIA NO . CEREBRAL PALSY NO . MULTIPLE SCLEROSIS NO . DIZZINESS NO . HEADACHE NO . STROKES NO . VERTIGO NO . CARDIOLOGY: DO YOU HAVE A PACEMAKER OR DEFIBRILLATOR? NO . ANGINA NO . HEART ATTACK NO . HEART SURGERY YES, CARDIAC CATH . CONGESTIVE HEART FAILURE/FLUID OVERLOAD NO . CHEST PAIN NO, DENIES . HIGH BLOOD PRESSURE NO . IRREGULAR HEART BEAT NO . SHORTNESS OF BREATH DENIES . RESPIRATORY: HAVE YOU BEEN SICK IN THE PAST WEEK? NO . FEVER NO . FLU LIKE SYMPTOMS? NO . CPAP NO . BYPAP NO . ASTHMA NO . EMPHYSEMA NO . CHRONIC LUNG DISEASES NO . SHORTNESS OF BREATH ON EXERTION NO . DO YOU USE ANY TYPE OF TOBACCO (SMOKE, SMOKELESS, CHEW)? NO . COUGH NO, DENIES . SHORTNESS OF BREATH DENIES . SNORING NO . INTEGUMENTARY: DO YOU HAVE ANY RASHES OR OPEN SORES? NO . ALLERGIC/IMMUNO: ARE YOU ALLERGIC TO SHELLFISH OR IV DYE? NO . ANY NEW ALLERGIES? NO . PSYCHIATRIC: DO YOU HAVE THOUGHTS OF HURTING YOURSELF OR SOMEONE ELSE? NO . ARE YOU ABUSED, NEGLECTED, OR IN AN UNSAFE ENVIRONMENT? NO . ENDOCRINOLOGY: ARE YOU DIABETIC? NO . THYROID DISORDER YES, GOITER . OTHER: DO YOU NEED ANY PRESCRIPTIONS? NO . IF YES, PLEASE LIST: ____ . ANY NEW PROBLEMS WITH YOUR MEDICATIONS? NO . WHEN DID YOU LAST EAT? ____ . WHEN DID YOU LAST DRINK? ____ . WHAT DID YOU LAST DRINK? ____ . NAME OF PERSON DRIVING YOU HOME? ____ . DO YOU HAVE ANY OTHER QUESTIONS OR CONCERNS NO . REVIEWED BY: PROVIDER: YARED TOVAR . VITAL SIGNS WT 182.6 LBS, HT 63 IN, BMI 32.34 INDEX, BP 117/79 MM HG, HR 89 /MIN, RR 20 /MIN, TEMP 97 F, OXYGEN SAT % 97, NA INITIALS [id number], REVIEWED BY: MICHI. EXAMINATION GENERAL EXAMINATION: LUNGS:LUNG SOUNDS ARE CLEAR. HEART:HEART RATE REGULAR. MUSCULOSKELETAL:*, MUSCLE STRENGTH TESTING 3/5 BILATERAL UPPER AND LOWER EXTREMITIES.PARATHESIA AND WEAKNESS BILAT. LOWER EXTREMITIES.R>L, PALPATION: POSITIVE FOR PAIN OVER L/S SPINE. POSITIVE FOR PAIN OVER L/S PARASPINALS. DIAGNOSTIC:MRI L/S [id number] NCS LOWER [id number]. ASSESSMENTS MYOFASCIAL PAIN - M79.1 (PRIMARY) SACROILIAC JOINT PAIN - M53.3 TREATMENT MYOFASCIAL PAIN REFERRAL TO:PHYSICAL THERAPIST REASON:2XWK X 8WK-MYOFASCIAL RELEASE DISPOSITION & COMMUNICATION FOLLOW UP 6 WEEKS ELECTRONICALLY SIGNED BY LA DE LEON ON 01/25/2017 AT 06:07 PM EDT DISCLAIMER : THIS IS A VISIT SUMMARY EXTRACTED FROM THE [employer] CHART. IT IS NOT A COPY OF THE [employer] PROGRESS NOTE. PETE
== END ==
LOC: M PAIN 13:20
PROVIDERS: ATTEND Nurse Practitioner Family
DX: M79.1 Myalgia (principal); M53.3 Sacrococcygeal disorders, not elsewhere classified; G70.00 Myasthenia gravis without (acute) exacerbation; L40.50 Arthropathic psoriasis, unspecified; G89.29 Other chronic pain; G25.81 Restless legs syndrome; J45.909 Unspecified asthma, uncomplicated; K76.9 Liver disease, unspecified; F17.210 Nicotine dependence, cigarettes, uncomplicated; Z79.899 Other long term (current) drug therapy; Z88.2 Allergy status to sulfonamides; Z88.8 Allergy status to other drugs, medicaments and biological substances

== ENCOUNTER 2017-01-22 07:49 | Outpatient (CLI) | payer OTHER ==
[~2017-01-22] VITALS: Ht 160 cm; Wt 92.1 kg
[2017-01-22] MEDS ORDERED: IMMUNE GLOBULIN 10% 20 GM in APPROPRIATE DILUENT 1 EA IV ONE (08:00)
[2017-01-22] MEDS ORDERED: IMMUNE GLOBULIN 10% 10 GM in APPROPRIATE DILUENT 1 EA IV ONE (08:00)
[2017-01-22] MEDS ORDERED: SODIUM CHLORIDE 0.9% INJ 10 ML SYR IV SCH (09:00)
== END 2017-01-22 11:15 | disposition home or self-care (01) ==
LOC: M INFU 07:49
PROVIDERS: ATTEND Psychiatry & Neurology Neurology
DX: G70.00 Myasthenia gravis without (acute) exacerbation (principal); Z79.899 Other long term (current) drug therapy; Z79.51 Long term (current) use of inhaled steroids; Z88.8 Allergy status to other drugs, medicaments and biological substances; Z88.2 Allergy status to sulfonamides

== ENCOUNTER → 2017-01-26 | Outpatient (CLI) | payer MEDICAID, OTHER ==
--- NOTE | 2017-01-26 11:27 | REP ---
Hepatobiliary scan and gallbladder ejection fraction: History: Generalized abdominal pain. Technique: 5.9 mCi of technetium-99m mebrofenin was injected and sequential anterior images are acquired. 65 minutes after the mebrofenin injection, the patient consumed 8 ounces Ensure and an additional 60 minutes of imaging was to be acquired. However, the patient was unable to tolerate the full second hour of imaging in the last 14 minutes head to be abandoned. Regions of interest are plotted around the gallbladder. Findings: The initial hepatocellular parenchymal uptake phase is normal and homogeneous. Intra- and extra-hepatic bile ducts and duodenum are labeled by the 10 -minute image. The gallbladder is first labeled on the 10 -minute image. There is normal washout from the liver parenchyma into the gallbladder and small intestine on subsequent images. The gallbladder ejection fraction is 47 %. Values greater than 35 % are considered normal with this technique. Impression: Normal hepatobiliary scan and normal gallbladder ejection fraction. Signed by William Perla MD 01/26/2017 11:18 A
== END ==
LOC: M RAD 08:28
PROVIDERS: ATTEND Internal Medicine Gastroenterology
DX: K82.8 Other specified diseases of gallbladder (principal); R10.84 Generalized abdominal pain

== ENCOUNTER 2017-02-05 08:20 | Outpatient (CLI) | payer OTHER ==
[~2017-02-05] VITALS: Ht 160 cm; Wt 92.1 kg
[2017-02-05] MEDS ORDERED: SODIUM CHLORIDE 0.9% INJ 10 ML SYR IV SCH (09:00)
[2017-02-05] MEDS ORDERED: IMMUNE GLOBULIN 10% 10 GM in APPROPRIATE DILUENT 1 EA IV ONE (09:00)
[2017-02-05] MEDS ORDERED: IMMUNE GLOBULIN 10% 20 GM in APPROPRIATE DILUENT 1 EA IV ONE (09:00)
== END 2017-02-05 15:00 | disposition home or self-care (01) ==
LOC: M INFU 08:20
PROVIDERS: ATTEND Psychiatry & Neurology Neurology
DX: G70.00 Myasthenia gravis without (acute) exacerbation (principal); Z79.899 Other long term (current) drug therapy; Z88.8 Allergy status to other drugs, medicaments and biological substances; Z88.2 Allergy status to sulfonamides

== ENCOUNTER 2017-03-17 19:30 | Inpatient (IN) | payer OTHER ==
[~2017-03-17] VITALS: Ht 160 cm; Wt 98.6 kg
[2017-03-17] MEDS ORDERED: NS 1,000 ML IV ONE (20:15)
[2017-03-17 20:52] LABS: BASO % 0.3 % (0.0-1.0); EOS # 0.2 K/mm3 (0.0-0.50); EOS % 1.6 % (0.0-3.0); LARGE UNSTAINED CELL # 0.1 K/mm3 (0.0-0.4); LARGE UNSTAINED CELL % 1.2 % (0.0-4.0); LYMPH # 3.1 K/mm3 (1.5-4.5); LYMPH % 26.5 % (24.0-44.0); MEAN CORPUSCULAR HEMOGLOBIN 29.5 pg (27.0-33.0); MEAN CORPUSCULAR HGB CONC 33.9 g/dl (32.0-36.5); MEAN CORPUSCULAR VOLUME 87.1 fl (80.0-96.0); MONO # 0.3 K/mm3 (0.0-0.8); MONO % 2.6 % (0.0-5.0); NEUTROPHILS # 7.7 K/mm3 (1.8-7.7); NEUTROPHILS % 67.9 % (36.0-66.0); PLATELET COUNT, AUTOMATED 335 k/mm3 (150-450); RED CELL DISTRIBUTION WIDTH 15.3 % (11.5-14.5); VENOUS BASE EXCESS 1.6 (-2.0-2.0); VENOUS O2 SATURATION 89.3 % (60.0-80.0); VENOUS PARTIAL PRESSURE CO2 48.3 mmHg (38.0-50.0); VENOUS PARTIAL PRESSURE O2 57.6 mmHg (30.0-50.0); VENOUS STANDARD HCO3 25.7 MEQ/L; WHITE BLOOD COUNT 11.3 K/mm3 (4.0-10.0)
[2017-03-17] MEDS ORDERED: ONDANSETRON 4MG/2ML VIAL (J2405) IV ONE (21:00)
[2017-03-17 21:22] LABS: ALBUMIN 3.3 GM/DL (3.2-5.2); ALBUMIN/GLOBULIN RATIO 0.83 (1.00-1.93); ALKALINE PHOSPHATASE 128 U/L (45-117); ALT/SGPT 33 U/L (12-78); ANION GAP 1 MEQ/L (8-16); AST/SGOT 17 U/L (15-37); BILIRUBIN,DIRECT < 0.1 MG/DL (0.0-0.2); BILIRUBIN,TOTAL 0.2 MG/DL (0.2-1.0); BLOOD UREA NITROGEN 18 MG/DL (7-18); CALCIUM LEVEL 8.9 MG/DL (8.5-10.1); CARBON DIOXIDE LEVEL 32 MEQ/L (21-32); CHLORIDE LEVEL 106 MEQ/L (98-107); CREATININE FOR GFR 0.62 MG/DL (0.55-1.02); GLOMERULAR FILTRATION RATE > 60.0 (>51); GLUCOSE, FASTING 91 MG/DL (70-105); POTASSIUM SERUM 3.8 MEQ/L (3.5-5.1); SODIUM LEVEL 139 MEQ/L (136-145); TOTAL PROTEIN 7.3 GM/DL (6.4-8.2)
[2017-03-17] MEDS ORDERED: PYRIDOSTIGMINE 60 MG TAB PO ONE (22:30)
[2017-03-17] MEDS ORDERED: ARTI99.0 OU (23:05)
[2017-03-17] MEDS ORDERED: LACROIN OU (23:05)
[2017-03-17] MEDS ORDERED: ROPI1TAB PO (23:05)
[2017-03-17] MEDS ORDERED: EUCECRE3 TOP (23:05)
[2017-03-17] MEDS ORDERED: [UNRECOGNIZED DRUG - CODE] EXT (23:05)
[2017-03-18] MEDS ORDERED: rOPINIRole 1MG TAB PO PRN (00:30)
[2017-03-18] MEDS ORDERED: POLYVINYL ALCOHOL OPHTH SOLN 15 ML(LIQUITEARS) OU PRN (00:30)
[2017-03-18 01:15] VITALS: BP 138/68
[2017-03-18] MEDS ORDERED: ACETAMINOPHEN TAB 650MG DOSE (2X325MG) PO PRN (02:00)
[2017-03-18] MEDS: rOPINIRole 1MG TAB PO SCH ×3 (02:30→16:55)
[2017-03-18] MEDS ORDERED: SODIUM CHLORIDE 0.9% INJ 10 ML SYR IV PRN (02:30)
[2017-03-18] MEDS: GABAPENTIN 100 MG CAP PO SCH ×3 (02:30→16:55)
[2017-03-18] MEDS: EUCERIN 120GM CREAM TOP SCH ×3 (02:32→16:58)
[2017-03-18] MEDS: HEPARIN SOD (PORCINE) 5000 UNITS/ML VIAL SC SCH ×2 (05:02→16:27)
[2017-03-18 05:15] LABS: MEAN CORPUSCULAR HEMOGLOBIN 30.2 pg (27.0-33.0); MEAN CORPUSCULAR HGB CONC 34.2 g/dl (32.0-36.5); MEAN CORPUSCULAR VOLUME 88.2 fl (80.0-96.0); RED CELL DISTRIBUTION WIDTH 15.3 % (11.5-14.5); WHITE BLOOD COUNT 10.6 K/mm3 (4.0-10.0)
[2017-03-18 05:40] LABS: ALBUMIN/GLOBULIN RATIO 0.86 (1.00-1.93); ALKALINE PHOSPHATASE 112 U/L (45-117); ALT/SGPT 28 U/L (12-78); ANION GAP 5 MEQ/L (8-16); AST/SGOT 15 U/L (15-37); BILIRUBIN,TOTAL 0.3 MG/DL (0.2-1.0); BLOOD UREA NITROGEN 14 MG/DL (7-18); CALCIUM LEVEL 8.2 MG/DL (8.5-10.1); CARBON DIOXIDE LEVEL 27 MEQ/L (21-32); CHLORIDE LEVEL 107 MEQ/L (98-107); CREATININE FOR GFR 0.67 MG/DL (0.55-1.02); GLOMERULAR FILTRATION RATE > 60.0 (>51); GLUCOSE, FASTING 102 MG/DL (70-105); POTASSIUM SERUM 4.2 MEQ/L (3.5-5.1); SODIUM LEVEL 139 MEQ/L (136-145); TOTAL PROTEIN 6.5 GM/DL (6.4-8.2)
[2017-03-18 06:00] VITALS: BP 122/57
--- NOTE | 2017-03-18 06:28 | HPEPDOC ---
General Date of Admission Mar 18, 2017 at 00:21 Other Providers Gustavo So Attending Physician: LÓPEZ NUNEZ DO Chief Complaint The patient is a 51-year-old female admitted with a reason for visit of Dysphagia, Myasthenic Crisis. Source: Patient Exam Limitations: No limitations Timing/Duration: Day(s), Getting worse Severity: Moderate Associated Symptoms: Denies Symptoms History of Present Illness 51-year-old female with history of myasthenia gravis, only taking IVIG twice a month, presented to the emergency room for her dysphagia. 4. Past couple of days. Placenta started missing IVIG since last month due to the insurance problem now. Her dysphagia is getting significantly worse and she is not able to hold anything down. She went to her neurologist, Dr. Dawson who referred her to go to the emergency room. She denies any other symptoms of weakness, tingling, numbness. She does complain of generalized weakness Home Medications Scheduled (Cosentyx) 150 Mg/Ml Inj, 300 MG SC QMONTH, (Reported) FIRST WEDNESDAY OF EACH MONTH (Refresh Lacri-Lube) 1 Oin Oin, 1 OIN OU QHS, (Reported) Eucerin (Eucerin) 1 Cre Cre, 1 DOSE TOP TID, (Reported) USES ALL OVER BODY FOR PSORIASIS Folic Acid (Folic Acid) 1 Mg Tab, 3 MG PO DAILY, (Reported) CRUSHED AND PUT IN APPLESAUCE/PUDDING Methotrexate Sodium (Methotrexate Sodium) 25 Mg/Ml Inj, 25 MG IM QWEEK, ( Reported) MONDAYS Petrolatum (Petroleum Jelly) 1 Oin Oin, 1 OIN EXT BID, (Reported) USES ALL OVER BODY FOR PSORIASIS Pyridostigmine [place] (Mestinon) 60 Mg/5 Ml Syrp, 2.5 ML PO Q6H, (Reported) Ropinirole Hydrochloride (Ropinirole HCl) 1 Mg Tab, 1 MG PO TID, (Reported) CRUSHED AND PUT IN APPLESAUCE/PUDDING Scheduled PRN Artificial Tears (Artificial Tears) 1.4 % Rica, 1 DROP OU Q1H PRN for DRY EYES, ( Reported) Ropinirole Hydrochloride (Ropinirole HCl) 1 Mg Tab, 1 MG PO QHS PRN for RESTLESSNESS, (Reported) TAKES ADDITIONAL TABLET AT BEDTIME IF 1 MG DOESN'T CUT IT Allergies Coded Allergies: Metoclopramide (Verified Allergy, Unknown, 03/17/17) Sorbitan (Verified Allergy, Unknown, 03/17/17) Sulfasalazine (Verified Allergy, Unknown, 03/17/17) Ustekinumab (Verified Allergy, Unknown, 03/17/17) Sulfa Drugs (Verified Adverse Reaction, Severe, LIVER FAILURE, 03/17/17) Sulfa Drugs Cross Reactors (Verified Adverse Reaction, Severe, LIVER FAILURE, 03/17/17) Corticosteroids (Verified Adverse Reaction, Intermediate, TOO MANY SIDE EFFECTS, 03/17/17) PATIENT STATES SHE DOES NOT WANT TO RECEIVE STEROIDS OF ANY KIND BECAUSE OF ALL THE REBOUND EFFECTS SHE GETS FROM THEM Past Medical History Medical History Myasthenia gravis, psoriatic arthritis, restless leg syndrome. Degenerative disc disease Surgical History Right knee surgery, right hip surgery, spinal fusion of L5-S1 Social History * Smoker: less than 1 pack/day Alcohol: Denies Drugs: denies Recent Travel/Sick Contacts: Reports: Recent travel, Recent sick contacts Psychosocial History: No pertinent psych hx She lives with her son, independent for ADLs Review of Symptoms Constitutional: Denies: Chills, Fever, Night Sweats Eyes: Denies: Pain, Vision change ENT: Denies: Head Aches, Ear Pain, Dysphagia Skin: Denies: Rash, Lesions, Breakdown Pulmonary: Denies: Dyspnea, Cough Cardiovascular: Denies: Chest Pain, Palpitations, Orthopnea, Paroxysmal Noc. Dyspnea, Lt Headedness Gastrointestinal: Reports: Other Symptoms (dysphagia and anorexia), Denies: Nausea, Vomiting, Abdominal Pain, Diarrhea Genitourinary: Denies: Dysuria, Frequency, Incontinence, Retention Hematologic: Denies: Bruising, Bleeding Excessively Musculoskeletal: Denies: Neck Pain, Back Pain, Joint Pain, Muscle Pain, Spasms Neurological: Denies: Weakness, Numbness, Change in speech, Confusion Psych: Reports: Mood Normal, Denies: Depression, Memory Issues Physical Examination General Exam: Positive: Alert, No Acute Distress Eye Exam: Positive: PERRLA, Conjunctiva & lids normal, EOMI, Negative: Sclera icteric ENT Exam: Positive: Atraumatic, Mucous membr. moist/pink, Pharynx Normal Neck Exam: Positive: Supple, Negative: JVD, thyromegaly Chest Exam: Positive: Clear to auscultation, Normal air movement Heart Exam: Positive: Rate Normal, Regular Rhythm, Normal S1, Normal S2, Negative: Murmurs, Rubs Telemetry: Positive: No significant arrhythmia Abdomen Exam: Positive: Normal bowel sounds, Soft, Negative: Tenderness, Hepatospenomegaly Extremity Exam: Positive: Normal pulses, Negative: Clubbing, Cyanosis, Edema Skin Exam: Positive: Nl turgor and temperature, Negative: Breakdown, Lesion Neuro Exam: Positive: Normal Gait, Normal Speech, Cranial Nerves 3-12 NL, Reflexes 2+ Psych Exam: Positive: Mental status NL, Mood NL, Oriented x 3 Vital Signs Vital Signs Date Time Temp Pulse Resp B/P (MAP) Pulse Ox O2 Delivery O2 Flow Rate FiO2 03/18/17 01:15 97.2 79 20 138/68 (91) 98 Room Air Laboratory Data Labs 24H Laboratory Tests 2 03/17/17 20:39: White Blood Count 11.3H, Red Blood Count 4.25, Hemoglobin 12.5, Hematocrit 37.0 , Mean Corpuscular Volume 87.1, Mean Corpuscular Hemoglobin 29.5, Mean Corpuscular Hemoglobin Concent 33.9, Red Cell Distribution Width 15.3H, Platelet Count 335, Neutrophils (%) (Auto) 67.9H, Lymphocytes (%) (Auto) 26.5, Monocytes (%) (Auto) 2.6, Eosinophils (%) (Auto) 1.6, Basophils (%) (Auto) 0.3, Neutrophils # (Auto) 7.7, Lymphocytes # (Auto) 3.1, Monocytes # (Auto) 0.3, Eosinophils # (Auto) 0.2, Basophils # (Auto) 0.0, Large Unclassified Cells % 1.2 , Large Unclassified Cells # 0.1, Blood Gas Bicarbonate Standard 25.7, Venous Blood pH 7.373, Venous Blood Partial Pressure CO2 48.3, Venous Blood Partial Pressure O2 57.6H, Venous Blood Total Carbon Dioxide 29.0H, Venous Blood HCO3 27.5H, Venous Blood Oxygen Saturation 89.3H, Venous Blood Base Excess 1.6, Anion Gap 1L, Glomerular Filtration Rate > 60.0, Calcium Level 8.9, Magnesium Level 2.0, Aspartate Amino Transf (AST/SGOT) 17, Alanine Aminotransferase (ALT/ SGPT) 33, Alkaline Phosphatase 128H, Total Bilirubin 0.2, Direct Bilirubin < 0.1 , Total Creatine Kinase 99, Creatine Kinase MB 1.2, Creatine Kinase MB Relative Index 1.21, Troponin I < 0.02, Total Protein 7.3, Albumin 3.3, Albumin/Globulin Ratio 0.83L, Lipase 482H 03/18/17 05:06: Anion Gap 5L, Glomerular Filtration Rate > 60.0, Calcium Level 8.2L, Aspartate Amino Transf (AST/SGOT) 15, Alanine Aminotransferase (ALT/SGPT) 28, Alkaline Phosphatase 112, Total Bilirubin 0.3, Total Protein 6.5, Albumin 3.0L, Albumin/ Globulin Ratio 0.86L, Blood Urea Nitrogen 14, Creatinine 0.67, Sodium Level 139 , Potassium Level 4.2, Chloride Level 107, Carbon Dioxide Level 27 CBC/BMP Laboratory Tests 03/17/17 20:39 Red Blood Count 4.25, Mean Corpuscular Volume 87.1, Mean Corpuscular Hemoglobin 29.5, Mean Corpuscular Hemoglobin Concent 33.9, Red Cell Distribution Width 15.3 H, Neutrophils (%) (Auto) 67.9 H, Lymphocytes (%) (Auto) 26.5, Monocytes (% ) (Auto) 2.6, Eosinophils (%) (Auto) 1.6, Basophils (%) (Auto) 0.3, Neutrophils # (Auto) 7.7, Lymphocytes # (Auto) 3.1, Monocytes # (Auto) 0.3, Eosinophils # ( Auto) 0.2, Basophils # (Auto) 0.0 03/18/17 05:06 Red Blood Count 3.80 L, Mean Corpuscular Volume 88.2, Mean Corpuscular Hemoglobin 30.2, Mean Corpuscular Hemoglobin Concent 34.2, Red Cell Distribution Width 15.3 H, Calcium Level 8.2 L, Aspartate Amino Transf (AST/SGOT ) 15, Alanine Aminotransferase (ALT/SGPT) 28, Alkaline Phosphatase 112, Total Bilirubin 0.3, Total Protein 6.5, Albumin 3.0 L Assessment/Plan 51-year-old female, history of myasthenia gravis, psoriatic arthritis, presented with dysphagia likely due to exacerbation of myasthenia gravis. Problems (1) Myasthenic crisis Status: Acute Problem Text: Neurologist Dr. Freire was consulted and recommendation was to start Mestinon 60 mg 3 times a day. As per the neurologist. There is no need for inpatient consult of neurologists at this point and patient's can be discharged. During the day if she is feeling fine and will follow up with the neurologist as an outpatient. 10. Rheumatoid arthritis. Presented continue to get methotrexate 10 Tobacco abuse. Continue with the nicotine patch Plan / VTE VTE Prophylaxis Ordered?: Yes Plan Diet: Continue Current Activity: Continue Current Therapy: PT, OT Anticipated Discharge: Home DREAD HA MD Mar 18, 2017 06:28
--- NOTE | 2017-03-18 08:24 | ECGEPIP ---
Stationary ECG Study [facility] - ED Test Date: 2017-03-17 Pat Name: NHUNG MILLER Department: Room: [place] [address] Gender: F Receiving Clerk: dmitry : 1965 Requested By: ANN Hardy Order Number: [id number] Reading MD: Katerin Bedolla Measurements Intervals [place] Rate: 83 P: 50 [place]: 159 QRS: 53 QRSD: 86 T: 54 QT: 358 QTc: 422 Interpretive Statements SINUS RHYTHM INCREASED RATE 11/16/16 Electronically Signed On 03-18-2017 8:23:44 EDT by Katerin Bedolla
[2017-03-18] MEDS ORDERED: FOLIC ACID 1 MG TAB PO SCH (09:00)
[2017-03-18] MEDS ORDERED: SODIUM CHLORIDE 0.9% INJ 10 ML SYR IV SCH (09:00)
[2017-03-18] MEDS ORDERED: NICOTINE 14 MG/24 HR TRANSDERMAL TD SCH (09:00)
[2017-03-18] MEDS: PYRIDOSTIGMINE 60 MG TAB PO SCH ×2 (09:43→16:55)
[2017-03-18] MEDS ORDERED: E-Z-GAS II EFFERVESCENT PACKET (SODIUM BICARB./CITRIC ACID/SIMETHICONE) As Ordered ONE (14:30)
[2017-03-18] MEDS ORDERED: E-Z-PAQUE 96% w/w SUSP 176GM BTL As Ordered ONE (14:30)
[2017-03-18] MEDS ORDERED: E-Z-HD 98% w/w 340GM SUSP BTL As Ordered ONE (14:30)
[2017-03-18 15:15] VITALS: BP 128/68
--- NOTE | 2017-03-18 15:21 | REP ---
Esophagram: History: Dysphasia. Myasthenia. 1 minute 12 seconds of fluoroscopy time was utilized. Findings: Preliminary security assistant view of the chest shows a right-sided [id number]. The lung mills are clear. The oral pharyngeal phase of the barium swallow is recorded on rapid sequence spot radiographs and shows no evidence of motor discoordination in either the frontal or lateral projection. No laryngeal reflux or tracheal aspiration is seen. There is some degenerative disc disease in the cervical spine and associated spurring produces some indentation of the posterior wall of the cervical esophagus, but there is no visible disruption of swallow. The body of the esophagus is normal in course and caliber. Reflux was not witnessed. No hiatal hernia seen. No stricture is noted. Impression: Degenerative disc spurring in the cervical spine. Otherwise negative esophagram. Signed by William Perla MD 03/18/2017 04:49 P
[2017-03-18] MEDS ORDERED: MEST60TA PO (18:14)
[2017-03-22] MEDS ORDERED: METHOTREXATE 50MG/2ML VIAL (J9260) IM SCH (09:00)
== END 2017-03-18 19:18 | disposition home or self-care (01) | DRG 42 ==
LOC: M ED 20:57 → M ED INP 03-18 00:21 → M MSPAV 03-18 01:14
PROVIDERS: ADMIT Internal Medicine; ATTEND Internal Medicine
DX: G70.01 Myasthenia gravis with (acute) exacerbation (principal); R13.10 Dysphagia, unspecified; Z79.899 Other long term (current) drug therapy; Z88.2 Allergy status to sulfonamides; Z88.8 Allergy status to other drugs, medicaments and biological substances; F17.200 Nicotine dependence, unspecified, uncomplicated; M06.9 Rheumatoid arthritis, unspecified

== ENCOUNTER → 2017-04-07 | Outpatient (CLI) | payer OTHER ==
[~2017-04-07] MED LIST changes: +ARTI99.0 OU; +EUCECRE3 TOP; +LACROIN OU; +MEST60TA PO; +[UNRECOGNIZED DRUG - CODE] EXT
--- NOTE | 2017-04-07 18:22 | REP ---
Pelvic sonography: History: Pelvic pain when urinating. Perineal pain. Findings: Transabdominal scanning demonstrates smooth bladder montgomery. Uterine dimensions are normal 8.3 x 4.4 x 5.4 cm. Endometrial echo 0.8 cm thick and centrally placed. No focal uterine mass is seen. No free fluid is noted. Right ovary measures 3.9 x 2.4 x 1.8 cm. Left ovarian dimensions are normal at 2.8 x 1.7 x 2.2 cm. Doppler flow is normal in both ovaries. Resistive indices are 0.58 on the right and 0.60 on the left. Impression: Normal pelvic sonography. Signed by William Perla MD 04/07/2017 08:28 P
== END ==
LOC: M RAD 16:52
PROVIDERS: ATTEND Nurse Practitioner Adult Health
DX: R10.2 Pelvic and perineal pain (principal)

== ENCOUNTER 2017-04-17 11:40 | Emergency (ER) | payer OTHER ==
[~2017-04-17] VITALS: Ht 160 cm; Wt 98.3 kg
[~2017-04-17 11:40] MED LIST changes: -FOLI1TAB2 PO; +FOLI1TAB4 PO; +VOLT1GEL15 TD; -VOLT1GEL24 TD
[2017-04-17] MEDS ORDERED: PRIV5INJ IV (11:54)
--- NOTE | 2017-04-17 14:15 | REP ---
Clinical: Chest pain. Rule out pneumonia . Comparison: 11/13/16 . Technique: PA and lateral. Findings: The mediastinum and cardiac silhouette are normal. [id number] stable with tip in the SVC. The lung mills are clear and without acute consolidation, effusion, or pneumothorax. The skeletal structures are intact and normal. Impression: 1. No acute cardiopulmonary process. Signed by Shawn De Anda MD 04/17/2017 02:07 P
[2017-04-17 14:16] LABS: BASO # 0.1 K/mm3 (0.0-0.2); EOS # 0.2 K/mm3 (0.0-0.50); EOS % 1.9 % (0.0-3.0); LARGE UNSTAINED CELL # 0.2 K/mm3 (0.0-0.4); LARGE UNSTAINED CELL % 2.1 % (0.0-4.0); LYMPH # 1.8 K/mm3 (1.5-4.5); LYMPH % 15.2 % (24.0-44.0); MEAN CORPUSCULAR HEMOGLOBIN 30.5 pg (27.0-33.0); MEAN CORPUSCULAR HGB CONC 34.2 g/dl (32.0-36.5); MEAN CORPUSCULAR VOLUME 89.3 fl (80.0-96.0); MONO # 0.7 K/mm3 (0.0-0.8); NEUTROPHILS # 8.6 K/mm3 (1.8-7.7); NEUTROPHILS % 73.8 % (36.0-66.0); PLATELET COUNT, AUTOMATED 316 k/mm3 (150-450); WHITE BLOOD COUNT 11.6 K/mm3 (4.0-10.0)
[2017-04-17 14:21] LABS: ALBUMIN 3.9 GM/DL (3.2-5.2); ALBUMIN/GLOBULIN RATIO 1.05 (1.00-1.93); ALKALINE PHOSPHATASE 155 U/L (45-117); ALT/SGPT 33 U/L (12-78); ANION GAP 8 MEQ/L (8-16); AST/SGOT 21 U/L (15-37); BILIRUBIN,TOTAL 0.3 MG/DL (0.2-1.0); BLOOD UREA NITROGEN 13 MG/DL (7-18); CALCIUM LEVEL 8.7 MG/DL (8.5-10.1); CARBON DIOXIDE LEVEL 26 MEQ/L (21-32); CHLORIDE LEVEL 107 MEQ/L (98-107); CREATININE FOR GFR 0.63 MG/DL (0.55-1.02); GLOMERULAR FILTRATION RATE > 60.0 (>51); GLUCOSE, FASTING 82 MG/DL (70-105); POTASSIUM SERUM 4.3 MEQ/L (3.5-5.1); SODIUM LEVEL 141 MEQ/L (136-145); TOTAL PROTEIN 7.6 GM/DL (6.4-8.2)
[2017-04-17] MEDS ORDERED: IPRATROPIUM 0.5MG/ALBUTEROL 2.5MG INH SOL UD 3ML (DUONEB)(J7620) NEB ONE (14:30)
[2017-04-17 16:57] VITALS: BP 148/71
== END 2017-04-17 16:59 | disposition home or self-care (01) ==
LOC: M ED 11:40
DX: G70.00 Myasthenia gravis without (acute) exacerbation (principal); F17.210 Nicotine dependence, cigarettes, uncomplicated

== ENCOUNTER → 2017-05-15 | Outpatient (CLI) | payer OTHER ==
[~2017-05-15] MED LIST changes: +GAMM1INJ IV; +LIDO5TD TD; +MOTR200T44 PO; +PRIV5INJ IV
[2017-05-16 02:24] LABS: BASO % 0.3 % (0.0-1.0); EOS # 0.1 K/mm3 (0.0-0.50); EOS % 1.1 % (0.0-3.0); LYMPH # 4.1 K/mm3 (1.5-4.5); MEAN CORPUSCULAR HEMOGLOBIN 29.5 pg (27.0-33.0); MEAN CORPUSCULAR HGB CONC 33.1 g/dl (32.0-36.5); MEAN CORPUSCULAR VOLUME 89.4 fl (80.0-96.0); MONO # 0.5 K/mm3 (0.0-0.8); MONO % 3.3 % (0.0-5.0); NEUTROPHILS # 8.9 K/mm3 (1.8-7.7); NEUTROPHILS % 65.4 % (36.0-66.0); RED CELL DISTRIBUTION WIDTH 14.8 % (11.5-14.5); WHITE BLOOD COUNT 13.6 K/mm3 (4.0-10.0)
[2017-05-16 02:30] LABS: ALBUMIN 3.3 GM/DL (3.2-5.2); ALBUMIN/GLOBULIN RATIO 0.85 (1.00-1.93); ALKALINE PHOSPHATASE 125 U/L (45-117); ALT/SGPT 20 U/L (12-78); ANION GAP 9 MEQ/L (8-16); AST/SGOT 15 U/L (15-37); BILIRUBIN,TOTAL 0.2 MG/DL (0.2-1.0); BLOOD UREA NITROGEN 12 MG/DL (7-18); CALCIUM LEVEL 7.8 MG/DL (8.5-10.1); CARBON DIOXIDE LEVEL 25 MEQ/L (21-32); CHLORIDE LEVEL 106 MEQ/L (98-107); CREATININE FOR GFR 0.64 MG/DL (0.55-1.02); GLOMERULAR FILTRATION RATE > 60.0 (>51); GLUCOSE, FASTING 83 MG/DL (70-105); POTASSIUM SERUM 3.7 MEQ/L (3.5-5.1); SODIUM LEVEL 140 MEQ/L (136-145); TOTAL PROTEIN 7.2 GM/DL (6.4-8.2)
[2017-05-21 14:14] LABS: CARBONIC ANHYDRASE VI IgA ABS 5.1 EU/ml (.); CARBONIC ANHYDRASE VI IgM ABS 34.1 EU/ml (.); PAROTID SPECIFIC PROTEIN IgA 5.7 EU/ml (.); PAROTID SPECIFIC PROTEIN IgG 4.7 EU/ml (.); PAROTID SPECIFIC PROTEIN IgM 4.6 EU/ml (.); SALIVARY PROTEIN 1 IgA 11.6 EU/ml (.); SALIVARY PROTEIN 1 IgG 10.3 EU/ml (.); SALIVARY PROTEIN 1 IgM 10.6 EU/ml (.)
== END ==
LOC: M LAB 23:45
PROVIDERS: ATTEND Internal Medicine
DX: G70.00 Myasthenia gravis without (acute) exacerbation (principal); L40.50 Arthropathic psoriasis, unspecified

== ENCOUNTER 2017-05-19 13:41 | Observation (INO) | payer OTHER ==
[~2017-05-19] VITALS: Ht 160 cm; Wt 96.2 kg
[~2017-05-19 13:41] MED LIST changes: -GAMM1INJ IV; -LIDO5TD TD; -MOTR200T44 PO
[2017-05-19] MEDS ORDERED: MOTR200T44 PO (14:07)
[2017-05-19 14:56] LABS: BASO % 0.3 % (0.0-1.0); EOS # 0.1 K/mm3 (0.0-0.50); LARGE UNSTAINED CELL # 0.1 K/mm3 (0.0-0.4); LARGE UNSTAINED CELL % 1.1 % (0.0-4.0); LYMPH # 2.3 K/mm3 (1.5-4.5); MEAN CORPUSCULAR HEMOGLOBIN 30.7 pg (27.0-33.0); MEAN CORPUSCULAR HGB CONC 35.3 g/dl (32.0-36.5); MEAN CORPUSCULAR VOLUME 87.1 fl (80.0-96.0); MONO # 0.7 K/mm3 (0.0-0.8); MONO % 5.2 % (0.0-5.0); NEUTROPHILS # 9.6 K/mm3 (1.8-7.7); NEUTROPHILS % 75.5 % (36.0-66.0); PLATELET COUNT, AUTOMATED 290 k/mm3 (150-450); RED CELL DISTRIBUTION WIDTH 15.2 % (11.5-14.5); WHITE BLOOD COUNT 12.7 K/mm3 (4.0-10.0)
[2017-05-19 15:22] LABS: ANION GAP 5 MEQ/L (8-16); BLOOD UREA NITROGEN 12 MG/DL (7-18); CALCIUM LEVEL 8.8 MG/DL (8.5-10.1); CARBON DIOXIDE LEVEL 27 MEQ/L (21-32); CHLORIDE LEVEL 105 MEQ/L (98-107); GLOMERULAR FILTRATION RATE > 60.0 (>51); GLUCOSE, FASTING 92 MG/DL (70-105); POTASSIUM SERUM 3.9 MEQ/L (3.5-5.1); SODIUM LEVEL 137 MEQ/L (136-145)
[2017-05-19 15:23] LABS: CONTROL LINE HCG INT CTR LINE PRESENT
[2017-05-19 15:51] LABS: INR 0.88
--- NOTE | 2017-05-19 15:51 | REP ---
CT Head without contrast HISTORY: Infarction COMPARISON: 11/14/2016 There is no intraparenchymal hemorrhage, acute infarct, mass or midline shift. The ventricular system is normal in appearance. There is no extra cerebral collection. There is no fracture. The visualized sinuses are clear. IMPRESSION: There is no intracranial lesion. Signed by Speedy White MD 05/19/2017 03:41 P
--- NOTE | 2017-05-19 16:11 | REP ---
The portable chest, single AP view, the patient sitting, 04:00 p.m.: Comparison is 2016. There is an [id number] central venous catheter entering from the right with the tip in the superior vena cava in satisfactory location, unchanged. The lung mills are clear. The cardiac size is normal. The bronwyn, mediastinum, and bony thorax are unremarkable. Impression: Negative portable chest. There is no interval change. Signed by Chadwick Queen MD 05/19/2017 04:03 P
[2017-05-19] MEDS ORDERED: PYRI60TA2 PO (17:42)
[2017-05-19] MEDS ORDERED: GAMM1INJ IV (17:42)
[2017-05-19] MEDS ORDERED: ALBU17IN INH (17:43)
--- NOTE | 2017-05-19 18:01 | REP ---
MR BRAIN WITHOUT CONTRAST: HISTORY: Infarction. COMPARISON: 05/26/2016. Several punctate areas of increased signal intensity on T2 weighted images are present in the periventricular and subcortical white matter. This represents small vessel ischemic disease. There intraparenchymal hemorrhage, infarct, mass or midline shift. The sella turcica is partially empty. The ventricular system is normal in appearance. There is no extracerebral collection. Minimal mucosal thickening is present in the right sphenoid sinus and right mastoid air cells. IMPRESSION: Minimal small vessel ischemic disease. Signed by Speedy White MD 05/20/2017 08:30 A
[2017-05-19 20:21] VITALS: BP 135/70
--- NOTE | 2017-05-19 20:35 | ECGEPIP ---
Stationary ECG Study [facility] - ED Test Date: 2017-05-19 Pat Name: NHUNG MILLER Department: Room: - Gender: F Political Research Scientist: maria elena : 1965 Requested By: Eliza Polk Order Number: [id number] Reading MD: Eliza Polk Measurements Intervals [place] Rate: 70 P: 41 [place]: 162 QRS: 38 QRSD: 77 T: 36 QT: 378 QTc: 410 Interpretive Statements SINUS RHYTHM 03/17/17 RATE DECREASED Electronically Signed On 05-19-2017 20:34:47 EDT by Eliza Polk
[2017-05-19] MEDS: rOPINIRole 1MG TAB PO SCH (21:59)
[2017-05-19] MEDS: PYRIDOSTIGMINE 60 MG TAB PO SCH (21:59)
[2017-05-19] MEDS: LIDOCAINE 5% (LIDODERM) PATCH TD SCH (22:00)
[2017-05-19] MEDS: EUCERIN 120GM CREAM TOP SCH (22:00)
[2017-05-19] MEDS: ACETAMINOPHEN TAB 650MG DOSE (2X325MG) PO PRN (22:01)
[2017-05-19] MEDS: NICOTINE 14 MG/24 HR TRANSDERMAL TD SCH (22:12)
[2017-05-19] MEDS: ALBUTEROL SULFATE 2.5 MG/0.5 ML INH NEB SOLN NEB PRN (22:26)
[2017-05-19] MEDS ORDERED: SODIUM CHLORIDE 0.9% INJ 10 ML SYR IV PRN (22:45)
[2017-05-19 23:59] VITALS: BP 121/69
[2017-05-20] MEDS: PYRIDOSTIGMINE 60 MG TAB PO SCH ×6 (01:38→20:10)
[2017-05-20 04:18] VITALS: BP 100/64
[2017-05-20] MEDS: ACETAMINOPHEN TAB 650MG DOSE (2X325MG) PO PRN ×2 (04:23→16:15)
[2017-05-20 06:10] LABS: BASO % 0.3 % (0.0-1.0); EOS # 0.2 K/mm3 (0.0-0.50); EOS % 1.8 % (0.0-3.0); LARGE UNSTAINED CELL # 0.2 K/mm3 (0.0-0.4); LARGE UNSTAINED CELL % 1.7 % (0.0-4.0); LYMPH # 2.1 K/mm3 (1.5-4.5); LYMPH % 21.4 % (24.0-44.0); MEAN CORPUSCULAR HEMOGLOBIN 30.3 pg (27.0-33.0); MEAN CORPUSCULAR HGB CONC 34.4 g/dl (32.0-36.5); MEAN CORPUSCULAR VOLUME 87.9 fl (80.0-96.0); MONO # 0.5 K/mm3 (0.0-0.8); MONO % 4.8 % (0.0-5.0); NEUTROPHILS # 6.8 K/mm3 (1.8-7.7); NEUTROPHILS % 70.1 % (36.0-66.0); PLATELET COUNT, AUTOMATED 312 k/mm3 (150-450); WHITE BLOOD COUNT 9.8 K/mm3 (4.0-10.0)
[2017-05-20] MEDS: ALBUTEROL SULFATE 2.5 MG/0.5 ML INH NEB SOLN NEB PRN (06:11)
[2017-05-20 06:27] LABS: ANION GAP 8 MEQ/L (8-16); BLOOD UREA NITROGEN 10 MG/DL (7-18); CALCIUM LEVEL 8.4 MG/DL (8.5-10.1); CARBON DIOXIDE LEVEL 25 MEQ/L (21-32); CHLORIDE LEVEL 106 MEQ/L (98-107); GLOMERULAR FILTRATION RATE > 60.0 (>51); GLUCOSE, FASTING 95 MG/DL (70-105); MAGNESIUM LEVEL 2.1 MG/DL (1.8-2.4); POTASSIUM SERUM 4.1 MEQ/L (3.5-5.1); SODIUM LEVEL 139 MEQ/L (136-145)
[2017-05-20 07:56] VITALS: BP 119/67
[2017-05-20] MEDS: **NOTE PATIENT COMMENT** MISC XX SCH (09:00)
[2017-05-20] MEDS ORDERED: METHOTREXATE 50MG/2ML VIAL (J9260 PER 50MG) IM SCH (09:00)
[2017-05-20] MEDS: rOPINIRole 1MG TAB PO SCH ×3 (09:32→20:10)
[2017-05-20] MEDS: FOLIC ACID 1 MG TAB PO SCH (09:32)
[2017-05-20] MEDS: EUCERIN 120GM CREAM TOP SCH ×2 (09:35→20:22)
[2017-05-20] MEDS: NICOTINE 14 MG/24 HR TRANSDERMAL TD SCH (09:35)
[2017-05-20] MEDS: ENOXAPARIN 40 MG/0.4 ML SYRINGE (J1650) SC SCH (09:38)
[2017-05-20] MEDS: SODIUM CHLORIDE 0.9% INJ 10 ML SYR IV SCH (09:40)
--- NOTE | 2017-05-20 10:30 | HPE ---
DATE OF ADMISSION: 05/19/2017 PRIMARY CARE PROVIDER: Dr. Gustavo Perez NEUROLOGIST: In [place] is Dr. Garza and also follows with neurologist at [facility]. BOARD MIXER TENDER: Dr. Ryder CHIEF COMPLAINT: Extreme heaviness of the chest, upper abdomen and difficulty in swallowing for the past 2 days. PAST MEDICAL HISTORY: 1. Myasthenia gravis diagnosed about 1 year ago. 2. Psoriasis. 3. Restless leg syndrome. 4. History of asthma versus chronic obstructive pulmonary disease (COPD). 5. Psoriatic arthritis. HISTORY OF PRESENT ILLNESS: This is a 51-year-old female who had a urinary tract infection, followed by upper respiratory infection, for which she was on two courses of antibiotics in the month of April and early May, and finished her course of antibiotics about one week ago and then slowly started developing increasing swallowing difficulty with taking pills and heaviness of the chest and upper abdomen, which worsened over the past two days and so came to the emergency room for evaluation. The patient has seronegative myasthenia gravis, as diagnosed in [facility] and is on medications for that. Dr. Garza's group was consulted from the emergency room and it was felt that the patient might be having a myasthenia gravis exacerbation, so is being admitted for that to the hospitalist service. PAST SURGICAL HISTORY: 1. Right knee surgery. 2. Spinal fusion. 3. Right hip repair. 4. Exploratory laparotomy for adhesions. ALLERGIES: CORTICOSTEROIDS, METOCLOPRAMIDE, SULFA DRUGS, USTEKINUMAB. HOME MEDICATIONS: - albuterol sulfate two puff inhalation four times a day as needed for shortness of breath - artificial tears - Cosentyx 300 mg subcutaneously once a month - Eucerin topically three times a day - folic acid 3 mg daily - Gamma Plex 30 grams IV every 2 weeks - ibuprofen 600 mg by mouth as needed for pain - methotrexate 25 mg intramuscularly once a week on - petroleum jelly - pyridostigmine 30 mg by mouth every 4 hours - Refresh - ropinirole 1 mg by mouth three times a day SOCIAL HISTORY: The patient is a smoker. The patient denies any alcohol or recreational drug use. The patient denies any recent travel. FAMILY HISTORY: Mother with history of end stage renal disease. Father with history of amyloidosis and prostate cancer. REVIEW OF SYSTEMS: The patient complains of heaviness of the eyes and light bothering her eyes. Complains of swallowing difficulty. Complains of heaviness of the chest and difficulty taking deep breaths. Also heaviness in the upper abdomen. Denies any weakness of the hands or arms. Denies any weakness of lower extremities. Denies any shortness of breath or chest pain. Denies any abdominal pain, nausea, vomiting, diarrhea. Denies any fever or chills. PHYSICAL EXAMINATION: VITAL SIGNS: Temperature 98.6, pulse 76, blood pressure 129/72, pulse oximetry 97% on room air. GENERAL: The patient is awake, alert, oriented times three. Sitting up in bed and no acute distress. HEENT: Normocephalic, atraumatic. Moist mucous membranes. Anicteric eyes. CHEST: Clear to auscultation. CARDIOVASCULAR: S1, S2 regular. No rub, murmur or gallop. ABDOMEN: Obese, soft, nontender. Bowel sounds present. EXTREMITIES: No edema. SKIN: There are psoriatic rashes present over both the upper and lower extremities. NEUROLOGIC: The patient has bilateral symmetrical power in both lower and upper extremities. No sensory deficits. RADIOLOGY: CT of the head with no intracranial lesion. Chest x-ray is negative. Brain MRI has been ordered. ASSESSMENT AND PLAN: This is a 51-year-old female admitted for myasthenia gravis exacerbation. PLAN: 1. Myasthenia gravis exacerbation. The patient has seronegative myasthenia gravis. We will continue with pyridostigmine. We will consult Dr. Garza. For myasthenia gravis, the patient is also on IVIG once every 2 weeks however has not received it for the past few months due to insurance issues recently restarted this month. 2. Psoriasis and psoriatic arthritis. We will continue with Cosentyx, which is once a month, and methotrexate, which is intramuscularly every , for which she is due tomorrow. For myasthenia gravis, the patient is also on IVIG once every 2 weeks. 3. Restless leg syndrome. We will continue with ropinirole. 4. Chronic obstructive pulmonary disease (COPD)/asthma. We will continue with albuterol as needed. 5. Deep vein thrombosis (DVT) prophylaxis. Ordered. MTDD
[2017-05-20 12:16] VITALS: BP 131/76
[2017-05-20 16:00] VITALS: BP 152/90
--- NOTE | 2017-05-20 16:05 | IPNPDOC ---
Text Note Date of Service The patient was seen on 05/20/17. NOTE Subjective: Patient states dysphagia is much improved. Objective: Vitals: (see below) General: No acute distress, laying comfortably in bed. HEENT: Moist mucous membranes. Neck: No JVD or lymphadenopathy Cardiac: RRR, No murmurs Pulm: Clear to auscultation b/l. No wheezing, rhonchi Abd: NT/ND + BS Ext: No edema or cyanosis Neuro: Strength 4/5 BUE and BLE. CN 2-12 intact, although she does have mild right ptosis. F to N intact AAO x 3. Labs (see below) Images: MRI Brain 05/19/17 IMPRESSION: Minimal small vessel ischemic disease. Assessment/Plan 1. Myasthenia gravis - on IVIG every 2 weeks. Has not had her IVIG from January total recently and on Wednesday she had received it for the first time since January. States that dysphagia has improved since admission however she does have generalized weakness, and is able to swallow her saliva. NIF -40. Continue current meds. Neurology consulted. 2. Psoriasis. - On Cosentyx 3. Restless leg syndrome. Continue ropinirole 4. History of asthma versus chronic obstructive pulmonary disease (COPD). Continue nebs 5. Psoriatic arthritis. DVT prophy: Enoxaparin VS,Fishbone, I+O VS, Fishbone, I+O Laboratory Tests 05/20/17 05:43 Red Blood Count 4.16, Mean Corpuscular Volume 87.9, Mean Corpuscular Hemoglobin 30.3, Mean Corpuscular Hemoglobin Concent 34.4, Red Cell Distribution Width 15.0 H, Neutrophils (%) (Auto) 70.1 H, Lymphocytes (%) (Auto) 21.4 L, Monocytes (%) (Auto) 4.8, Eosinophils (%) (Auto) 1.8, Basophils (%) (Auto) 0.3, Neutrophils # (Auto) 6.8, Lymphocytes # (Auto) 2.1, Monocytes # (Auto) 0.5, Eosinophils # (Auto) 0.2, Basophils # (Auto) 0.0, Calcium Level 8.4 L Vital Signs Date Time Temp Pulse Resp B/P (MAP) Pulse Ox O2 Delivery O2 Flow Rate FiO2 05/20/17 12:24 Room Air 05/20/17 12:16 96.8 64 20 131/76 (06) 81 I&O- Last 24 Hours up to 6 AM 05/20/17 06:00 Intake Total 120 ml Output Total 525 ml Balance -405 ml DEBBIE BROWNLEE MD May 20, 2017 16:05
[2017-05-20 19:50] VITALS: BP 111/62
[2017-05-20] MEDS: LIDOCAINE 5% (LIDODERM) PATCH TD SCH (20:11)
[2017-05-20 23:59] VITALS: BP 112/60
[2017-05-21] MEDS: ACETAMINOPHEN TAB 650MG DOSE (2X325MG) PO PRN (00:20)
[2017-05-21] MEDS: PYRIDOSTIGMINE 60 MG TAB PO SCH ×5 (00:21→16:54)
[2017-05-21 04:00] VITALS: BP 123/64
[2017-05-21 05:38] LABS: BASO % 0.3 % (0.0-1.0); EOS # 0.2 K/mm3 (0.0-0.50); EOS % 1.9 % (0.0-3.0); LARGE UNSTAINED CELL # 0.1 K/mm3 (0.0-0.4); LARGE UNSTAINED CELL % 1.2 % (0.0-4.0); LYMPH # 2.4 K/mm3 (1.5-4.5); LYMPH % 23.3 % (24.0-44.0); MEAN CORPUSCULAR HEMOGLOBIN 29.9 pg (27.0-33.0); MEAN CORPUSCULAR VOLUME 87.9 fl (80.0-96.0); MONO # 0.6 K/mm3 (0.0-0.8); MONO % 6.3 % (0.0-5.0); NEUTROPHILS # 6.5 K/mm3 (1.8-7.7); PLATELET COUNT, AUTOMATED 303 k/mm3 (150-450); RED CELL DISTRIBUTION WIDTH 15.2 % (11.5-14.5); WHITE BLOOD COUNT 9.8 K/mm3 (4.0-10.0)
[2017-05-21 05:48] LABS: ANION GAP 9 MEQ/L (8-16); BLOOD UREA NITROGEN 12 MG/DL (7-18); CALCIUM LEVEL 8.5 MG/DL (8.5-10.1); CARBON DIOXIDE LEVEL 25 MEQ/L (21-32); CHLORIDE LEVEL 106 MEQ/L (98-107); CREATININE FOR GFR 0.62 MG/DL (0.55-1.02); GLOMERULAR FILTRATION RATE > 60.0 (>51); GLUCOSE, FASTING 96 MG/DL (70-105); POTASSIUM SERUM 4.2 MEQ/L (3.5-5.1); SODIUM LEVEL 140 MEQ/L (136-145)
--- NOTE | 2017-05-21 07:43 | CR ---
DATE OF CONSULTATION: 05/20/2017 REFERRING PHYSICIAN: Dr. Huey Saunders REASON FOR CONSULTATION: Extreme heaviness of chest, abdomen and difficulty swallowing. HISTORY OF PRESENT ILLNESS: Angelia Arthur is a 51-year-old woman who had a urinary tract infection and then upper respiratory tract infection and needed two courses of antibiotics in April and May 2017. She carries a diagnosis of questionable seronegative myasthenia gravis. I have been involved in her care during 3 or 4 previous admissions at [facility]. She has had exacerbations during infusion of intravenous immunoglobulins and despite getting high-dose methotrexate, prednisone, mestinon, she continued to have symptoms and infusion of intravenous immunoglobulins would not improve her exacerbations. On two different occasions she has been admitted with only right-sided weakness with normal MRI scan of brain on both occasions. She has complained of shortness of breath but her oxygen saturations, bedside spirometry have been normal. She has complained of swallowing difficulty but her speech and swallow evaluations have been normal during her symptoms. Her blood tests for acetylcholine receptor antibody, anti MUSK antibody were normal. I do not have results of her single fiber EMG, but I am not sure whether it was performed at [facility] or [facility]. She also has been to [facility] too. This time she complained of difficulty swallowing while taking her pills and heaviness of chest and came to emergency department. She complained of right-sided weakness of face, arm more than leg. I myself have never seen her ptosis. She denies any seizures, urinary incontinence, falls or loss of consciousness. She has history of psoriasis for which she follows with rheumatology. PAST MEDICAL HISTORY: Psoriasis, right knee surgery, right hip repair, questionable seronegative myasthenia gravis, restless leg syndrome. HOME MEDICATIONS: - intravenous immunoglobulins 30 grams intravenously every 2 weeks - methotrexate 25 mg intramuscular once a week - Mestinon 30 mg every 4 hours - Requip 1 mg by mouth three times a day - folic acid 3 mg by mouth daily - Cosentyx 300 mg subcutaneous once a month SOCIAL HISTORY: She is a smoker. She denies alcohol or illicit drugs. FAMILY HISTORY: Mother has end-stage renal disease. Father has history of prostate cancer and amyloidosis. REVIEW OF SYSTEMS: All systems were reviewed and found to be noncontributory except as mentioned in history present illness. PHYSICAL EXAMINATION: Temperature 97.1, pulse 80, respiratory rate 19, blood pressure 152/90, 93% saturations on room air. Heart regular rate and rhythm. Lungs clear to auscultation. No pedal edema. No gross musculoskeletal abnormalities. The patient is awake, alert, oriented to place, person and time. Normal speech, comprehension and repetition. Extraocular muscles are intact. No facial weakness. Tongue and uvula are midline. 5/5 strength on left side. Right arm and leg strength is 4+/5 with intermittent activation. Plantars are downgoing. Sensations are intact. Gait was not tested. There is no dysmetria. DIAGNOSTIC STUDIES: MRI scan of brain was reviewed and did not show any acute disease. She had a normal MRI scan of brain earlier this year or 2016. At that time, she also had right-sided body weakness. ASSESSMENT: 1. Questionable seronegative myasthenia gravis. 2. Functional neurological disorder is in differential diagnosis based on the history and physical examination described above. 3. Restless leg syndrome and psoriasis. PLAN: 1. Physical and occupational therapy. 2. Continue methotrexate 25 mg intramuscular once a week per recommendations of his manager acquisition. 3. Continue Mestinon 30 mg every 4 hours and intravenous immunoglobulin 30 grams intravenous twice a month per recommendations of his neurologists. She has been to [facility], [facility] in [place] and [facility] in [place], [place]. She also follows with our office in [place]. 4. Aspirin 81 mg by mouth daily due to two separate episodes of right-sided body weakness of unclear etiology. Myasthenia gravis does not cause unilateral weakness. 5. She will followup as planned with our office and her other neurologists. PETE
[2017-05-21 08:00] VITALS: BP 108/62
[2017-05-21] MEDS: **NOTE PATIENT COMMENT** MISC XX SCH (09:00)
[2017-05-21] MEDS: NICOTINE 14 MG/24 HR TRANSDERMAL TD SCH (09:34)
[2017-05-21] MEDS: SODIUM CHLORIDE 0.9% INJ 10 ML SYR IV SCH (09:35)
[2017-05-21] MEDS: ENOXAPARIN 40 MG/0.4 ML SYRINGE (J1650) SC SCH (09:35)
[2017-05-21] MEDS: FOLIC ACID 1 MG TAB PO SCH (09:36)
[2017-05-21] MEDS: EUCERIN 120GM CREAM TOP SCH (09:41)
[2017-05-21] MEDS: rOPINIRole 1MG TAB PO SCH ×2 (11:37→16:53)
[2017-05-21 12:00] VITALS: BP 147/81
[2017-05-21] MEDS ORDERED: LIDO5TD TD (16:31)
--- NOTE | 2017-05-21 17:19 | DS.PDOC ---
Discharge Summary General Date of Admission May 19, 2017 at 16:34 Date of Discharge 05/21/17 Attending Physician: DEBBIE BROWNLEE MD Specialist/Consultants Involve: LIZETTE STOKES MD Discharge Summary PROCEDURES PERFORMED DURING STAY: None. ADMITTING/DISCHARGE DIAGNOSES: 1. ? Myasthenia gravis exacerbation 2. Psoriasis. - On Cosentyx 3. Restless leg syndrome. 4. History of asthma versus chronic obstructive pulmonary disease (COPD). 5. Psoriatic arthritis. COMPLICATIONS/CHIEF COMPLAINT: Myasthenia Gravis With Exacerbation. HISTORY OF PRESENT ILLNESS/HOSPITAL COURSE: Subjective 51-year-old female past medical history of ? Myasthenia gravis who has been evaluated by multiple tertiary centers, and follows up with outpatient neurology presents complaining of dysphagia. Since admission, his dysphagia significantly improved and the patient was advanced back to her home mechanical soft diet. Patient was also evaluated by neurology, and we will be following up outpatient. The patient's dysphagia significantly improved. The patient is back to her baseline. She was evaluated by physical therapy as well and cleared for discharge where she will be staying with her sister who is less than 10 steps at home. She also need to have outpatient physical therapy as well. At this point the patient is hemodynamically stable, Carmen baseline, be discharged home with follow-up with her neurologist outpatient. DISCHARGE MEDICATIONS: Please see below. ALLERGIES: Please see below. PHYSICAL EXAMINATION ON DISCHARGE: Vitals: (see below) General: No acute distress, laying comfortably in bed. HEENT: Moist mucous membranes. Neck: No JVD or lymphadenopathy Cardiac: RRR, No murmurs Pulm: Clear to auscultation b/l. No wheezing, rhonchi Abd: NT/ND + BS Ext: No edema or cyanosis Neuro: Strength 5/5 BUE and BLE. CN 2-12 intact F to N intact AAO x 3. LABORATORY DATA: Please see below. IMAGING: MRI Brain 05/19/17 IMPRESSION: Minimal small vessel ischemic disease. PROGNOSIS: Guarded ACTIVITY: As tolerated. DIET: Mechanical soft DISCHARGE PLAN/DISPOSITION: Home with home PT DISCHARGE INSTRUCTIONS: 1. Follow-up with PCP and neurology in 1 week. Return to ED if symptoms worsen. DISCHARGE CONDITION: Stable. TIME SPENT ON DISCHARGE: Greater than 30 minutes. Vital Signs/I&Os Vital Signs Date Time Temp Pulse Resp B/P (MAP) Pulse Ox O2 Delivery O2 Flow Rate FiO2 05/21/17 12:00 97.3 64 20 147/81 (103) 97 Room Air I&O- Last 24 Hours up to 6 AM 05/21/17 05:59 Intake Total 820 ml Output Total 1100 ml Balance -280 ml Laboratory Data Labs 24H Laboratory Tests 2 05/21/17 05:22: White Blood Count 9.8, Red Blood Count 4.15, Hemoglobin 12.4, Hematocrit 36.4, Mean Corpuscular Volume 87.9, Mean Corpuscular Hemoglobin 29.9, Mean Corpuscular Hemoglobin Concent 34.0, Red Cell Distribution Width 15.2H, Platelet Count 303, Neutrophils (%) (Auto) 67.0H, Lymphocytes (%) (Auto) 23.3L, Monocytes (%) (Auto) 6.3H, Eosinophils (%) (Auto) 1.9, Basophils (%) (Auto) 0.3 , Neutrophils # (Auto) 6.5, Lymphocytes # (Auto) 2.4, Monocytes # (Auto) 0.6, Eosinophils # (Auto) 0.2, Basophils # (Auto) 0.0, Large Unclassified Cells % 1.2 , Large Unclassified Cells # 0.1, Anion Gap 9, Glomerular Filtration Rate > 60.0 , Blood Urea Nitrogen 12, Creatinine 0.62, Sodium Level 140, Potassium Level 4.2 , Chloride Level 106, Carbon Dioxide Level 25, Calcium Level 8.5, Magnesium Level 2.0 CBC/BMP Laboratory Tests 05/21/17 05:22 Red Blood Count 4.15, Mean Corpuscular Volume 87.9, Mean Corpuscular Hemoglobin 29.9, Mean Corpuscular Hemoglobin Concent 34.0, Red Cell Distribution Width 15.2 H, Neutrophils (%) (Auto) 67.0 H, Lymphocytes (%) (Auto) 23.3 L, Monocytes (%) (Auto) 6.3 H, Eosinophils (%) (Auto) 1.9, Basophils (%) (Auto) 0.3, Neutrophils # (Auto) 6.5, Lymphocytes # (Auto) 2.4, Monocytes # (Auto) 0.6, Eosinophils # (Auto) 0.2, Basophils # (Auto) 0.0, Calcium Level 8.5 Discharge Medications Scheduled (Cosentyx) 150 Mg/Ml Inj, 300 MG SC QMONTH, (Reported) FIRST WEDNESDAY OF EACH MONTH (Refresh Lacri-Lube) 1 Oin Oin, 1 DOSE OU QHS, (Reported) (Gammaplex 10 gm/100Ml) 1 Inj Inj, 30 GM IV Q2WK, (Reported) Eucerin (Eucerin) 1 Cre Cre, 1 DOSE TOP TID, (Reported) USES ALL OVER BODY FOR PSORIASIS Folic Acid (Folic Acid) 1 Mg Tab, 3 MG PO DAILY, (Reported) Lidocaine (Lidocaine) 5 % Pad, 1 PATCH TD DAILY@2100 Methotrexate Sodium (Methotrexate Sodium) 25 Mg/Ml Inj, 25 MG IM QWEEK, ( Reported) THURSDAYS Petrolatum (Petroleum Jelly) 1 Oin Oin, 1 OIN EXT BID, (Reported) USES ALL OVER BODY FOR PSORIASIS Pyridostigmine [place] (Pyridostigmine [place]) 60 Mg Tab, 30 MG PO Q4H, ( Reported) Ropinirole Hydrochloride (Ropinirole HCl) 1 Mg Tab, 1 MG PO TID, (Reported) Scheduled PRN Albuterol Sulfate (Ventolin Hfa) 200 Puff/8 Gm Aers, 2 PUFF INH QID PRN for SHORTNESS OF BREATH, (Reported) Artificial Tears (Artificial Tears) 1.4 % [place], 1 DROP OU Q1H PRN for DRY EYES, ( Reported) Ibuprofen (Motrin Ib) 200 Mg Tab, 600 MG PO QPM PRN for PAIN, (Reported) Allergies Coded Allergies: Metoclopramide (Verified Allergy, Unknown, 03/17/17) Sorbitan (Verified Allergy, Unknown, 03/17/17) Sulfasalazine (Verified Allergy, Unknown, 03/17/17) Ustekinumab (Verified Allergy, Unknown, 03/17/17) Sulfa Drugs (Verified Adverse Reaction, Severe, LIVER FAILURE, 03/17/17) Sulfa Drugs Cross Reactors (Verified Adverse Reaction, Severe, LIVER FAILURE, 03/17/17) Corticosteroids (Verified Adverse Reaction, Intermediate, TOO MANY SIDE EFFECTS, 03/17/17) PATIENT STATES SHE DOES NOT WANT TO RECEIVE STEROIDS OF ANY KIND BECAUSE OF ALL THE REBOUND EFFECTS SHE GETS FROM THEM DEBBIE BROWNLEE MD May 21, 2017 17:18
== END 2017-05-21 17:25 | disposition home or self-care (01) ==
LOC: M ED 13:41 → M ED INP 16:34 → M PCU 20:14
PROVIDERS: ADMIT Internal Medicine Nephrology; ATTEND Internal Medicine
DX: G70.01 Myasthenia gravis with (acute) exacerbation (principal); L40.8 Other psoriasis; G25.81 Restless legs syndrome; J44.9 Chronic obstructive pulmonary disease, unspecified; L40.52 Psoriatic arthritis mutilans; Z79.899 Other long term (current) drug therapy; Z88.2 Allergy status to sulfonamides; Z88.8 Allergy status to other drugs, medicaments and biological substances; F17.210 Nicotine dependence, cigarettes, uncomplicated
CPT/HCPCS: 36415; 70450; 70551; 71010; 80048; 82550; 82553; 83735; 84100; 84703; 85025; 85610; 85730; 86850; 86900; 86901; 92610; 93000; 93041; 94150; 94640; 94760; 96372; 97161; 99285; J1650; J9260

== ENCOUNTER 2018-03-24 11:58 | Emergency (ER) | payer OTHER ==
[2018-03-24] MEDS: NS 1,000 ML IV (13:00)
[2018-03-24] MEDS: METOCLOPRAMIDE INJ 10MG/2ML VIAL (J2765) IV (13:30)
[2018-03-24 13:39] LABS: BASO % 0.3 % (0.0-1.0); EOS # 0.2 10^3/uL (0.0-0.50); EOS % 1.8 % (0.0-3.0); HEMATOCRIT 35.4 % (36.0-47.0); HEMOGLOBIN 11.7 g/dl (12.0-15.5); IMMATURE GRANULOCYTE % 0.4 % (0-3.0); LYMPH # 2.7 10^3/uL (1.5-4.5); LYMPH % 21.2 % (24.0-44.0); MEAN CORPUSCULAR HEMOGLOBIN 28.8 pg (27.0-33.0); MEAN CORPUSCULAR HGB CONC 33.1 g/dl (32.0-36.5); MEAN CORPUSCULAR VOLUME 87.2 fl (80.0-96.0); MONO # 0.9 10^3/uL (0.0-0.8); MONO % 6.8 % (0.0-5.0); NEUTROPHILS # 8.9 10^3/uL (1.8-7.7); NEUTROPHILS % 69.5 % (36.0-66.0); PLATELET COUNT, AUTOMATED 310 10^3/uL (150-450); RED BLOOD COUNT 4.06 10^6/uL (4.00-5.40); RED CELL DISTRIBUTION WIDTH 14.8 % (11.5-14.5); WHITE BLOOD COUNT 12.8 10^3/uL (4.0-10.0)
[2018-03-24 14:01] LABS: ANION GAP 7 MEQ/L (8-16); BLOOD UREA NITROGEN 12 MG/DL (7-18); CALCIUM LEVEL 8.8 MG/DL (8.5-10.1); CARBON DIOXIDE LEVEL 26 MEQ/L (21-32); CHLORIDE LEVEL 108 MEQ/L (98-107); GLOMERULAR FILTRATION RATE > 60.0 (>51); GLUCOSE, FASTING 77 MG/DL (70-100); SODIUM LEVEL 141 MEQ/L (136-145)
[2018-03-24 14:22] LABS: ERYTHROCYTE SEDIMENTATION RATE 42 mm/hr (0-30)
[2018-03-24] MEDS: SODIUM CHLORIDE 0.9% INJ 10 ML SYR IV (15:10)
== END 2018-03-24 15:13 | disposition home or self-care (01) ==
LOC: M ED 11:58
DX: R51 Headache (principal); G50.0 Trigeminal neuralgia; Z87.891 Personal history of nicotine dependence; Z88.8 Allergy status to other drugs, medicaments and biological substances; Z88.2 Allergy status to sulfonamides
CPT/HCPCS: J2765

== ENCOUNTER 2018-04-08 15:10 | Emergency (ER) | payer OTHER ==
[2018-04-08] MEDS: NORCO, ANEXSIA 5/325MG TABLET (HYDROcodone/ACETAMINOPHEN) PO (17:24)
== END 2018-04-08 17:42 | disposition home or self-care (01) ==
LOC: M ED 15:10
DX: S96.912A Strain of unspecified muscle and tendon at ankle and foot level, left foot, initial encounter (principal); X58.XXXA Exposure to other specified factors, initial encounter; Y92.099 Unspecified place in other non-institutional residence as the place of occurrence of the external cause; Y93.9 Activity, unspecified; Y99.9 Unspecified external cause status; M77.32 Calcaneal spur, left foot; Z87.891 Personal history of nicotine dependence; Z79.899 Other long term (current) drug therapy; Z88.8 Allergy status to other drugs, medicaments and biological substances; Z88.0 Allergy status to penicillin
CPT/HCPCS: 73630

== ENCOUNTER 2020-03-10 14:37 | Emergency (ER) | payer OTHER ==
[~2020-03-10] VITALS: Ht 160 cm; Wt 110.9 kg
[~2020-03-10 14:37] MED LIST changes: -ARTI99.0 OU; +FOLI1TAB11 PO; -FOLI1TAB4 PO; +GABA-843 PO; +GAMM1INJ IV; +HYDR-3715 PO; +Hydrocodone/APAP PO; +LIDO5TD TD; +MOTR200T44 PO; -OMEP40CA2 PO; +OMEP40CA97 PO; -PEPC1TAB4 PO; +PEPC1TAB5 PO; +POLYOPD OU; +PRED-351 PO; -PRED10TA PO; +PROT1TAB2 PO; -ROPI1TAB PO; +ROPI1TAB3 PO; -ROPI2TAB PO; +ROPI2TAB3 PO; -VITA100T2 PO; +VITA100T8 PO; +XARE20TA PO
[2020-03-10] MEDS ORDERED: INFL10VL IV (14:45)
[2020-03-10] MEDS ORDERED: EPIN0.3I11 (14:47)
[2020-03-10] MEDS ORDERED: LINZ290C (14:47)
[2020-03-10] MEDS ORDERED: OMEP-218 (14:47)
[2020-03-10] MEDS ORDERED: CVS5000S2 PO (14:48)
[2020-03-10] MEDS ORDERED: BIOT10009 PO (14:48)
[2020-03-10] MEDS ORDERED: [UNRECOGNIZED DRUG - CODE] (14:48)
[2020-03-10 15:41] LABS: BASO % 0.2 % (0.0-1.0); EOS # 0.2 10^3/uL (0.0-0.5); EOS % 1.5 % (0.0-3.0); HEMATOCRIT 38.5 % (36.0-47.0); HEMOGLOBIN 12.6 g/dl (12.0-15.5); LYMPH # 3.8 10^3/uL (1.5-5.0); LYMPH % 27.8 % (24.0-44.0); MEAN CORPUSCULAR HEMOGLOBIN 26.1 pg (27.0-33.0); MEAN CORPUSCULAR HGB CONC 32.7 g/dl (32.0-36.5); MEAN CORPUSCULAR VOLUME 79.9 fl (80.0-96.0); MONO # 1.1 10^3/uL (0.0-0.8); MONO % 8.2 % (0.0-5.0); NEUTROPHILS # 8.5 10^3/uL (1.5-8.5); NEUTROPHILS % 61.7 % (36.0-66.0); PLATELET COUNT, AUTOMATED 306 10^3/uL (150-450); RED BLOOD COUNT 4.82 10^6/uL (4.00-5.40); WHITE BLOOD COUNT 13.7 10^3/uL (4.0-10.0)
[2020-03-10] MEDS ORDERED: ISOVUE-370 76% 100ML VIAL As Ordered ONE (15:53)
[2020-03-10] MEDS ORDERED: KETOROLAC 30 MG/ML 1ML VIAL IV ONE (16:00)
[2020-03-10 16:03] LABS: ALBUMIN 3.4 GM/DL (3.2-5.2); ALT/SGPT 48 U/L (12-78); BILIRUBIN,DIRECT < 0.1 MG/DL (0.0-0.2); BILIRUBIN,TOTAL 0.2 MG/DL (0.2-1.0); LIPASE 114 U/L (73-393); TOTAL PROTEIN 7.4 GM/DL (6.4-8.2)
[2020-03-10 17:18] VITALS: BP 115/64
--- NOTE | 2020-03-10 22:55 | REP ---
CT ABDOMEN AND PELVIS WITH IV CONTRAST: TECHNIQUE: Axial contrast-enhanced images from the lung bases to the pubic symphysis using 100 mL Isovue-370 intravenous contrast material with multiplanar reformations. Visualized lung bases are clear. There is diffuse fatty infiltration of the liver. Gallbladder is grossly unremarkable. There is no evidence of biliary dilatation. Spleen is normal in size with no intrinsic abnormality. Adrenal glands are normal. Pancreas demonstrates no abnormality or evidence of pancreatic duct dilatation. Kidneys demonstrate no abnormality. There is no abdominal aortic aneurysm. There is no adenopathy. There is no free air or free fluid. There is no bowel wall thickening. The appendix is normal. No pelvic mass is seen. Urinary bladder is mildly distended and grossly unremarkable. There are degenerative changes of the spine. There is a posterior metallic fusion device at L5-S1. IMPRESSION: No acute abnormalities. Diffuse fatty infiltration of the liver. Electronically Signed by Chadwick Richards MD 03/11/2020 01:13 P
== END 2020-03-10 17:35 | disposition home or self-care (01) ==
LOC: M ED 14:37
DX: R10.11 Right upper quadrant pain (principal); R19.7 Diarrhea, unspecified; J45.909 Unspecified asthma, uncomplicated; K21.9 Gastro-esophageal reflux disease without esophagitis; G25.81 Restless legs syndrome; F33.9 Major depressive disorder, recurrent, unspecified; F41.9 Anxiety disorder, unspecified; E03.9 Hypothyroidism, unspecified; G70.00 Myasthenia gravis without (acute) exacerbation; Z79.899 Other long term (current) drug therapy
CPT/HCPCS: 74177; 80047; 80076; 83690; 84702; 85025; 96374; 99284; J1885; Q9967

== ENCOUNTER → 2020-06-27 | Outpatient (CLI) | payer MEDICARE, MEDICAID ==
[~2020-06-27] MED LIST changes: +BIOT10009 PO; +CVS5000S2 PO; +EPIN0.3I11; +INFL10VL IV; +LINZ290C; +OMEP-218; +[UNRECOGNIZED DRUG - CODE]
== END ==
LOC: M RAD 08:25
PROVIDERS: ATTEND Internal Medicine Gastroenterology
DX: R10.11 Right upper quadrant pain (principal); Z53.9 Procedure and treatment not carried out, unspecified reason

== ENCOUNTER → 2020-07-22 | Outpatient (CLI) | payer MEDICARE, MEDICAID ==
--- NOTE | 2020-07-25 10:51 | REP ---
HEPATOBILIARY SCAN WITH GALLBLADDER EJECTION FRACTION HISTORY: Abdomen pain. COMPARISON: Scintigraphy 01/26/2017. TECHNIQUE: 6.6 mCi of Technetium-99m mebrofenin is injected and sequential anterior abdominal images are acquired. At 65 minutes post injection, 8 ounces of Ensure was consumed and an additional 60 minutes of dynamic imaging was acquired with regions of interest plotted around the gallbladder. SCINTIGRAPHIC FINDINGS: The initial hepatocellular parenchymal uptake phase is normal and homogeneous. Intrahepatic biliary uptake is first visualized at 5 minutes. Extrahepatic bile duct and duodenal labeling occurs at 10 minutes. The gallbladder is first labeled at 15 minutes. Subsequent images demonstrate normal washout from the liver parenchyma into the gallbladder and small intestine. The gallbladder ejection fraction is 46%. Values greater than 35% are normal. Previously, the gallbladder ejection fraction was 47%. IMPRESSION: Normal hepatobiliary scan. MTDD
== END ==
LOC: M RAD 08:18
PROVIDERS: ATTEND Internal Medicine Gastroenterology
DX: R10.11 Right upper quadrant pain (principal); R19.7 Diarrhea, unspecified
CPT/HCPCS: 78227; A9537

== ENCOUNTER 2021-07-05 13:57 | Emergency (ER) | payer MEDICAID, MEDICARE ==
[~2021-07-05] VITALS: Ht 160 cm; Wt 121.4 kg
[2021-07-05 13:57] VITALS: BP 153/75
[~2021-07-05 13:57] MED LIST changes: +GABA-282 PO; -GABA-843 PO; +OMEP40CA4 PO; -OMEP40CA97 PO
[2021-07-05] MEDS ORDERED: KETOROLAC 60MG 2ML VIAL IM ONE (15:55)
--- NOTE | 2021-07-05 16:29 | REP ---
INDICATION: coccyx pain into R hip. COMPARISON: None. TECHNIQUE: Contiguous 4 mm thick axial projection images were obtained of the lumbar spine. 2D sagittal and coronal reconstructions were performed. FINDINGS: There is levoscoliosis of the lumbar spine centered at the L3 level. There is no evidence of acute fracture. At the T12-L1 level, there is a partially calcified broad-based central disc protrusion, and an anterior disc protrusion complicated by marginal osteophytes. There is a vacuum disc phenomena. There is no central canal stenosis, lateral recess stenosis or foraminal narrowing. At the L1-L2 level, there is a broad-based central disc protrusion, and an anterior disc protrusion complicated by marginal osteophytes. There is a vacuum disc phenomena. There is no central canal stenosis, lateral recess stenosis or foraminal narrowing. At the L2-L3 level, there is a partially calcified broad-based central disc protrusion, and an anterior disc protrusion complicated by marginal osteophytes. There is a vacuum disc phenomena. There is bilateral facet arthropathy. There is 1 mm of degenerative retrolisthesis of L2 on L3. There is no central canal stenosis, lateral recess stenosis or foraminal narrowing. At the L3-L4 level, there is a partially calcified broad-based central disc protrusion, and an anterior disc protrusion complicated by marginal osteophytes. There is a vacuum disc phenomena. There is bilateral facet arthropathy and ligamentum flavum hypertrophy measuring 5 mm in thickness. There is 3 mm of degenerative anterolisthesis of L3 on L4. There is 5 mm of left lateral listhesis of L3 on L4. There is central canal stenosis with the AP dimension of the spinal canal measuring 8 mm. There is moderate lateral recess stenosis on the right and mild lateral recess stenosis on the left. There is no foraminal narrowing. At the L4-L5 level, there is a partially calcified broad-based central disc protrusion, and an anterior disc protrusion complicated by marginal osteophytes. There is a vacuum disc phenomena. There is bilateral facet arthropathy and ligamentum flavum hypertrophy measuring 5 mm in thickness. There is 2 mm of degenerative anterolisthesis of L4 on L5. There is central canal stenosis, with the AP dimension of the spinal canal measuring 9 mm. There is moderate lateral recess stenosis on the right and mild lateral recess stenosis on the left. There is no foraminal narrowing. At the L5-S1 level, there is an interspinous metallic fusion clamp. Status post bilateral laminectomy. There is marked narrowing of the disc space and there are large marginal osteophytes anteriorly and posteriorly. There is bilateral facet arthropathy. There is no central canal stenosis. There is severe lateral recess stenosis bilaterally. There is moderate foraminal narrowing, on the left. The SI joints are normal. There is fatty liver infiltration. There is minimal calcific vascular disease of the abdominal aorta. IMPRESSION: 1. There is degenerative disc disease, T12-L1 through L4-5, as described. 2. There is bilateral facet arthropathy L2-3 through L5-S1 with superimposed ligamentum flavum hypertrophy, L3-4 and L4-5. 3. There is degenerative grade 1 retrolisthesis of L2 on L3 and degenerative grade 1 anterolisthesis of L3 on L4 and L4 on L5. 4. There is central canal stenosis at L3-4 and L4-5. 5. There is inter spinous fusion, L5-S1. 6. There is lateral recess stenosis at multiple levels as described. Other findings as noted. <Electronically signed by Gigi Sahu > 07/05/21 [id number]
--- NOTE | 2021-07-05 16:31 | REP ---
INDICATION: severe r hip pain, no knew injury. COMPARISON: None. TECHNIQUE: AP and frogleg lateral views of the right hip were obtained. FINDINGS: There is no evidence of fracture or dislocation. There is no significant arthropathy of the right hip. The periarticular soft tissues are normal. IMPRESSION: No significant abnormality of the right hip. <Electronically signed by Gigi Sahu > 07/05/21 [id number]
[2021-07-05 16:50] LABS: HEMATOCRIT 40.5 % (36.0-47.0); HEMOGLOBIN 13.4 g/dl (12.0-15.5); MEAN CORPUSCULAR HEMOGLOBIN 28.6 pg (27.0-33.0); MEAN CORPUSCULAR HGB CONC 33.1 g/dl (32.0-36.5); MEAN CORPUSCULAR VOLUME 86.4 fl (80.0-96.0); PLATELET COUNT, AUTOMATED 320 10^3/uL (150-450); RED BLOOD COUNT 4.69 10^6/uL (4.00-5.40); WHITE BLOOD COUNT 14.7 10^3/uL (4.0-10.0)
[2021-07-05 17:20] LABS: BLOOD UREA NITROGEN 14 MG/DL (7-18); CALCIUM LEVEL 8.9 MG/DL (8.5-10.1); CARBON DIOXIDE LEVEL 28 MEQ/L (21-32); CHLORIDE LEVEL 107 MEQ/L (98-107); CREATININE FOR GFR 0.72 MG/DL (0.55-1.30); GLOMERULAR FILTRATION RATE > 60.0 (>51); GLUCOSE, FASTING 91 MG/DL (70-100); POTASSIUM SERUM 4.2 MEQ/L (3.5-5.1); SODIUM LEVEL 140 MEQ/L (136-145)
[2021-07-05] MEDS ORDERED: ULTR50TA8 PO (17:48)
[2021-07-05] MEDS ORDERED: traMADol 50 MG TAB PO ONE (17:50)
[2021-07-05 18:01] LABS: ATYPICAL LYMPH 10 % (0-5); BASOPHILS 1 % (0-1); EOSINOPHILS 2 % (0-3); LYMPHOCYTES 28 % (16-44); MONOCYTES 2 % (0-5); NEUTROPHILS 56 % (28-66); PLATELET ESTIMATE NORMAL (NORMAL)
== END 2021-07-05 18:13 | disposition home or self-care (01) ==
LOC: M ED 13:57
DX: M25.551 Pain in right hip (principal); M51.36 Other intervertebral disc degeneration, lumbar region; M51.35 Other intervertebral disc degeneration, thoracolumbar region; M19.09 Primary osteoarthritis, other specified site; J45.909 Unspecified asthma, uncomplicated; J44.9 Chronic obstructive pulmonary disease, unspecified; G25.81 Restless legs syndrome; G70.00 Myasthenia gravis without (acute) exacerbation; M54.81 Occipital neuralgia; F17.200 Nicotine dependence, unspecified, uncomplicated; Z79.899 Other long term (current) drug therapy; Z88.8 Allergy status to other drugs, medicaments and biological substances; Z91.040 Latex allergy status; Z88.2 Allergy status to sulfonamides; Z88.1 Allergy status to other antibiotic agents; Z86.39 Personal history of other endocrine, nutritional and metabolic disease
CPT/HCPCS: 72131; 73502; 80048; 85025; 96372; 99282; J1885

== ENCOUNTER 2021-08-30 01:15 | Observation (INO) | payer MEDICARE, MEDICAID ==
[~2021-08-30] VITALS: Ht 160 cm; Wt 113.6 kg
[~2021-08-30 01:15] MED LIST changes: -EPIN0.3I11; +EPIN0.3I11 IM; -OMEP-218; +OMEP-218 PO; +ULTR50TA8 PO
--- OUTSIDE RECORDS SUMMARY | 2021-08-30 01:23 | CCD | Continuity of Care Document ---
Author Author Angelia HOOVER MD Organization Unknown Address [address] [place] [address] Phone [phone] Care Team Providers Care Soloist Dancer Name Role Phone Tyson Choi MD AUTM [phone] Allegra Garza AUTM [phone] Valerie Tarango MD AUTM [phone] Problems Description No Active Problems Social History Type Date Description Comments Sex Unknown ETOH Use Denies alcohol use Tobacco Use Start: Unknown End: Unknown Patient is a former smoker Allergies and adverse reactions Active Allergies Criticality Reaction | Severity Comments Date sulfa drugs Unable to assess criticality 02/28/2015 Azacitidine Unable to assess criticality 02/28/2015 Reglan Unable to assess criticality 02/28/2015 Stelara Unable to assess criticality 02/28/2015 Medications Active Medications SIG Qnty Indications Ordering Provide r Date Ventolin HFA 108(90Base) mcg/Act A erosol Valerie Tarango MD 0 Restasis 0.05% Emulsion Caro Newell MD Gabapentin 300mg Capsules Valerie Tarango MD Famotidine 40mg Tablets Unknown Omeprazole 40mg Capsules DR Guzman Pantoprazole Sodium 40mg Tablets Valerie Warner MD Ropinirole HCL 1mg Tablets Valerie Tarango MD Amoxicillin 875mg Tablets Take One Tablet By Mouth Twice A Day Unknown Remicade 100mg Solution Rec Nam Ryder MD Acetaminophen Extra Strength 500mg Tablets 2 by mouth three times a day for pain as needed Unknown Immunizations Description No Information Available Vital Signs Date Vital Result Comment 07/16/2021 9:39am Body Temperature 97.3 F Height 63.75 inches 5'3.75" Weight 253.00 lb BMI (Body Mass Index) 43.8 kg/m2 12/23/2017 2:51pm Body Temperature 98.0 F Height 63 inches 5'3" Weight 220.00 lb BMI (Body Mass Index) 39.0 kg/m2 Results Description No Information Available Procedures Date Code Description Status 07/16/2021 40415 Office/Outpatient New Low MDM 30 -44 Minutes Completed Medical Devices Description No Information Available Encounters Type Date Location Provider Dx Diagnosis Office Visit 07/16/2021 9:[place]a [place] Andreas Hoover MD M25.551 Pain in right hip M54.31 Sciatica, right side M51.36 Other intervertebral disc de generation, lumbar region Z68.41 Body mass index [BMI] 40.0-4 4.9, adult Assessments Date Code Description Provider 07/16/2021 M25.551 Pain in right hip Andreas Hoover MD 07/16/2021 M54.31 Sciatica, right side Andreas sheikh MD 07/16/2021 M51.36 Other intervertebral disc degene ration, lumbar region Andreas Hoover MD 07/16/2021 Z68.41 Body mass index [BMI] 40.0-44.9, adult Andreas Hoover MD Plan of Treatment 07/16/2021 - Andreas Hoover MD* M25.551 Pain in right hip* New Xrays:* MRI right hip arthrogram, Ordered: 07/16/21 * Follow up:* after rt hip mri for results with BLB * M54.31 Sciatica, right side * M51.36 Other intervertebral disc degeneration, lumbar region * Z68.41 Body mass index [BMI] 40.0-44.9, adult Functional Status Description No Information Available Mental Status Description No Information Available Referrals Description No Information Available
--- OUTSIDE RECORDS SUMMARY | 2021-08-30 01:23 | CCD | Continuity of Care Document ---
Author Author Angelia HOOVER MD Organization Unknown Address [address] [place] [address] Phone [phone] Care Team Providers Care [place] Cutter Name Role Phone Tyson Choi MD AUTM [phone] Allegra Garza AUTM [phone] Valerie Tarango MD AUTM [phone] Problems Description No Active Problems Social History Type Date Description Comments Sex Unknown ETOH Use Denies alcohol use Tobacco Use Start: Unknown Patient is a current smoker, smo kes every day Allergies, Adverse Reactions, Alerts Active Allergies Criticality Reaction | Severity Comments [...] Remicade 100mg Solution Rec Nam Ryder MD Immunizations Description No Information Available Vital Signs Date Vital Result Comment 07/16/2021 9:39am Body Temperature 97.3 F Height 63.75 inches 5'3.75" Weight 253.00 lb BMI (Body Mass Index) 43.8 kg/m2 12/23/2017 2:51pm Body Temperature 98.0 F Height 63 inches 5'3" Weight 220.00 lb BMI (Body Mass Index) 39.0 kg/m2 Results Description No Information Available Procedures Description No Information Available Medical Devices Description No Information Available Encounters Description No Information Available Assessments Date Code Description Provider 07/16/2021 M25.551 Pain in right hip Andreas Hoover MD 07/16/2021 M54.31 Sciatica, right side Andreas sheikh MD 07/16/2021 M51.36 Other intervertebral disc degene ration, lumbar region Andreas Hoover MD Plan of Treatment 07/16/2021 - Andreas Hoover MD* M25.551 Pain in right hip* New Xrays:* MRI right hip arthrogram, Ordered: 07/16/21 * Follow up:* after rt hip mri for results with blb * M54.31 Sciatica, right side * M51.36 Other intervertebral disc degeneration, lumbar region Functional Status Description No Information Available Mental Status Description No Information Available Referrals Description No Information Available
[2021-08-30] MEDS ORDERED: IBUP200C25 PO (01:28)
[2021-08-30] MEDS ORDERED: ACET-897 PO (01:28)
--- OUTSIDE RECORDS SUMMARY | 2021-08-30 01:30 | CCD ---
Author Author [facility] Organization [facility] Address Unknown Phone Unavailable Care Team Providers Care Street Department Dispatcher Name Role Phone Cruzito Epperson PT Unavailable Unavailable Cruzito Epperson PT Unavailable Unavailable Cruzito Epperson PT Unavailable Unavailable Cruzito Epperson PT Unavailable Unavailable Cruzito Epperson PT Unavailable Unavailable Cruzito Epperson PT Unavailable Unavailable Zeenat, R Anastacio PT Unavailable Unavailable Zeenat, R Anastacio PT Unavailable Unavailable Zeenat, R Anastacio PT Unavailable Unavailable Zeenat, R Anastacio PT Unavailable Unavailable Zeenat, R Anastacio PT Unavailable Unavailable Zeenat, R Anastacio PT Unavailable Unavailable Zeenat, R Anastacio PT Unavailable Unavailable Zeenat, R Anastacio PT Unavailable Unavailable Zeenat, R Anastacio PT Unavailable Unavailable Zeenat, R Anastacio PT Unavailable Unavailable Zeenat, R Anastacio PT Unavailable Unavailable Zeenat, R Anastacio PT Unavailable Unavailable Zeenat, R Anastacio PT Unavailable Unavailable Zeenat, R Anastacio PT Unavailable Unavailable Zeenat, R Anastacio PT Unavailable Unavailable Zeenat, R Anastacio PT Unavailable Unavailable Zeenat, R Anastacio PT Unavailable Unavailable Zeenat, R Anastacio PT Unavailable Unavailable Zeenat, R Anastacio PT Unavailable Unavailable KARLEE, A WIN PA Unavailable Unavailable KARLEE, A WIN PA Unavailable Unavailable KARLEE, A WIN PA Unavailable Unavailable KARLEE, A WIN PA Unavailable Unavailable KARLEE, A WIN PA Unavailable Unavailable KARLEE, A WIN PA Unavailable Unavailable KARLEE, A WIN PA Unavailable Unavailable KARLEE, A WIN PA Unavailable Unavailable KARLEE, A WIN PA Unavailable Unavailable KARLEE, A WIN PA Unavailable Unavailable KARLEE, A WIN PA Unavailable Unavailable KARLEE, A WIN PA Unavailable Unavailable KARLEE, A WIN PA Unavailable Unavailable Lakeshia Mcrae MD Unavailable Unavailable Lakeshia Mcrae MD Unavailable Unavailable Aubree Morfin MD Unavailable Unavailable Aubree Morfin MD Unavailable Unavailable Aubree Morfin MD Unavailable Unavailable Aubree Morfin MD Unavailable Unavailable Aubree Morfin MD Unavailable Unavailable Aubree Morfin MD Unavailable Unavailable Aubree Morfin MD Unavailable Unavailable Aubree Morfin MD Unavailable Unavailable Aubree Morfin MD Unavailable Unavailable Aubree Morfin MD Unavailable Unavailable Aubree Morfin MD Unavailable Unavailable Aubree Morfin MD Unavailable Unavailable Aubree Morfin MD Unavailable Unavailable Aubree Morfin MD Unavailable Unavailable Aubree Morfin MD Unavailable Unavailable Aubree Morfin MD Unavailable Unavailable Aubree Morfin MD Unavailable Unavailable Aubree Morfin MD Unavailable Unavailable Aubree Morfin MD Unavailable Unavailable Aubree Morfin MD Unavailable Unavailable Aubree Morfin MD Unavailable Unavailable Aubree Morfin MD Unavailable Unavailable Aubree Morfin MD Unavailable Unavailable Aubree Morfin MD Unavailable Unavailable Aubree Morfin MD Unavailable Unavailable Aubree Morfin MD Unavailable Unavailable Aubree Morfin MD Unavailable Unavailable Morfin, L Andreas MD Unavailable Unavailable MorfinAubree nash MD Unavailable Unavailable MorfinAubree nash MD Unavailable Unavailable Aubree Morfin MD Unavailable Unavailable MorfinAubree nash MD Unavailable Unavailable MorfinAubree nash MD Unavailable Unavailable Morfin, Aubree Johns MD Unavailable Unavailable MorfinAubree nash MD Unavailable Unavailable MorfinAubree nash MD Unavailable Unavailable MorfinAubree nash MD Unavailable Unavailable MorfinAubree nash MD Unavailable Unavailable MorfinAubree nash MD Unavailable Unavailable MorfinAubree nash MD Unavailable Unavailable MorfinAubree nash MD Unavailable Unavailable MorfinAubree nash MD Unavailable Unavailable MorfinAubree nash MD Unavailable Unavailable Aubree Morfin MD Unavailable Unavailable MorfinAubree nash MD Unavailable Unavailable Aubree Morfin MD Unavailable Unavailable Aubree Morfin MD Unavailable Unavailable Aubree Morfin MD Unavailable Unavailable Aubree Morfin MD Unavailable Unavailable Aubree Morfin MD Unavailable Unavailable ASTRID, Renata HUFFMAN MD Unavailable Unavailable ASTRID, Renata HUFFMAN MD Unavailable Unavailable ASTRID, Renata HUFFMAN MD Unavailable Unavailable ASTRID, Renata HUFFMAN MD Unavailable Unavailable ASTRID, Rneata HUFFMAN MD Unavailable Unavailable ASTRID, Renata HUFFMAN MD Unavailable Unavailable ASTRID, Renata HUFFMAN MD Unavailable Unavailable ASTRID, Renata HUFFMAN MD Unavailable Unavailable ASTRID, Renata HUFFMAN MD Unavailable Unavailable ASTRID, Renata HUFFMAN MD Unavailable Unavailable ASTRID, Renata HUFFMAN MD Unavailable Unavailable ASTRID, Renata HUFFMAN MD Unavailable Unavailable ASTRID, Renata HUFFMAN MD Unavailable Unavailable ASTRID, Renata HUFFMAN MD Unavailable Unavailable ASTRID, Renata HUFFMAN MD Unavailable Unavailable ASTRID, Renata HUFFMAN MD Unavailable Unavailable ASTRID, Renata HUFFMAN MD Unavailable Unavailable ASTRID, Renata HUFFMAN MD Unavailable Unavailable ASTRID, Renata HUFFMAN MD Unavailable Unavailable ASTRID, Renata HUFFMAN MD Unavailable Unavailable ASTRID, Renata HUFFMAN MD Unavailable Unavailable ASTRID, Renata HUFFMAN MD Unavailable Unavailable ASTRID, Renata HUFFMAN MD Unavailable Unavailable ASTRID, Renata HUFFMAN MD Unavailable Unavailable ASTRID, Renata HUFFMAN MD Unavailable Unavailable ATSRID, Renata HUFFMAN MD Unavailable Unavailable ASTRID, Renata HUFFMAN MD Unavailable Unavailable ASTRID, Renata HUFFMAN MD Unavailable Unavailable ASTRID, Renata HUFFMAN MD Unavailable Unavailable ASTRID, Renata HUFFMAN MD Unavailable Unavailable ASTRID, Renata HUFFMAN MD Unavailable Unavailable ASTRID, Renata HUFFMAN MD Unavailable Unavailable ASTRID, Renata HUFFMAN MD Unavailable Unavailable ASTRID, Renata HUFFMAN MD Unavailable Unavailable ASTRID, Renata HUFFMAN MD Unavailable Unavailable ASTRID, Renata HUFFMAN MD Unavailable Unavailable ASTRID, Renata HUFFMAN MD Unavailable Unavailable ASTRID, Renata HUFFMAN MD Unavailable Unavailable ASTRID, Rentaa HUFFMAN MD Unavailable Unavailable ASTRID, Renata HUFFMAN MD Unavailable Unavailable ASTRID, Renata HUFFMAN MD Unavailable Unavailable ASTRID, Renata HUFFMAN MD Unavailable Unavailable Malek, Radha Lopez MD Unavailable [phone] Malek, T Hamza MD Unavailable [phone] Malek, T Hamza MD Unavailable [phone] Malek, T Hamza MD Unavailable [phone] Malek, T Hamza MD Unavailable [phone] Malek, T Hamza MD Unavailable [phone] Malek, T Hamza MD Unavailable [phone] Malek, T Hamza MD Unavailable [phone] Malek, T Hamza MD Unavailable [phone] Malek, T Hamza MD Unavailable [phone] Malek, T Hamza MD Unavailable [phone] Malek, T Hamza MD Unavailable [phone] Malek, T Hamza MD Unavailable [phone] Malek, T Hamza MD Unavailable [phone] Malek, T Hamza MD Unavailable [phone] Malek, T Hamza MD Unavailable [phone] Malek, T Hamza MD Unavailable [phone] Malek, T Hamza MD Unavailable [phone] Malek, T Hamza MD Unavailable [phone] Malek, T Hamza MD Unavailable [phone] Malek, T Hamza MD Unavailable [phone] Malek, T Hamza MD Unavailable [phone] DELILAH (HERNANDO), Renata GARLAND MD Unavailable Unavailab le DELILAH (HERNANDO), Renata GARLAND MD Unavailable Unavailab le DELILAH (HERNANDO), Renata GARLAND MD Unavailable Unavailab le DELILAH (HERNANDO), Renata GARLAND MD Unavailable Unavailab le DELILAH (HERNANDO), Renata GARLAND MD Unavailable Unavailab le DELILAH (HERNANDO), Renata GARLAND MD Unavailable Unavailab le DELILAH (HERNANDO), Renata GARLAND MD Unavailable Unavailab le DELILAH (HERNANDO), Renata GARLAND MD Unavailable Unavailab le DELILAH (HERNANDO), Renata GARLAND MD Unavailable Unavailab le DELILAH (HERNANDO), Renata GARLAND MD Unavailable Unavailab le DELILAH (HERNANDO), Renata GARLAND MD Unavailable Unavailab le DELILAH (HERNANDO), Renata GARLAND MD Unavailable Unavailab le DELILAH (HERNANDO), Renata GARLAND MD Unavailable Unavailab le DELILAH (HERNANDO), Renata GARLAND MD Unavailable Unavailab le DELILAH (HERNANDO), Renata GARLAND MD Unavailable Unavailab le DELILAH (HERNANDO), Renata GARLAND MD Unavailable Unavailab le DELILAH (HERNANDO), Renata GARLAND MD Unavailable Unavailab le DELILAH (HERNANDO), Renata GARLAND MD Unavailable Unavailab le DELILAH (HERNANDO), Renata GARLAND MD Unavailable Unavailab le DELILAH (HERNANDO), Renata GARLAND MD Unavailable Unavailab le DELILAH (HERNANDO), Renata GARLAND MD Unavailable Unavailab le DELILAH (HERNANDO), Renata GARLAND MD Unavailable Unavailab le DELILAH (HERNANDO), Renata GARLAND MD Unavailable Unavailab le DELILAH (HERNANDO), Renata GARLAND MD Unavailable Unavailab le DELILAH (HERNANDO), Renata GARLAND MD Unavailable Unavailab le DELILAH (HERNANDO), Renata GARLAND MD Unavailable Unavailab le DELILAH (HERNANDO), Renata GARLAND MD Unavailable Unavailab le DELILAH (HERNANDO), Renata GARLAND MD Unavailable Unavailab le DELILAH (HERNANDO), Renata GARLAND MD Unavailable Unavailab le DELILAH (HERNANDO), Renata GARLAND MD Unavailable Unavailab le DELILAH (HERNANDO), Renata GARLAND MD Unavailable Unavailab le DELILAH (HERNANDO), Renata GARLNAD MD Unavailable Unavailab le DELILAH (HERNANDO), Renata GARLAND MD Unavailable Unavailab le DELILAH (HERNANDO), Renata GARLAND MD Unavailable Unavailab le DELILAH (HERNANDO), Renata GARLAND MD Unavailable Unavailab le DELILAH (HERNANDO), Renata GARLAND MD Unavailable Unavailab le DELILAH (HERNANDO), Renata GARLAND MD Unavailable Unavailab le DELILAH (HERNANDO), Renata GARLAND MD Unavailable Unavailab le DELILAH (HERNANDO), Renata GARLAND MD Unavailable Unavailab le DELILAH (HERNANDO), Renata GARLAND MD Unavailable Unavailab le DELILAH (HERNANDO), Renata GARLAND MD Unavailable Unavailab le DELILAH (HERNANDO), Renata GARLAND MD Unavailable Unavailab le DELILAH (HERNANDO), Renata GARLAND MD Unavailable Unavailab le DELILAH (HERNANDO), Renata GARLAND MD Unavailable Unavailab le DELILAH (HERNANDO), Renata GARLAND MD Unavailable Unavailab le DELILAH (HERNANDO), Renata GARLAND MD Unavailable Unavailab le DELILAH (HERNANDO), Renata GARLAND MD Unavailable Unavailab le DELILAH (HERNANDO), Renata GARLAND MD Unavailable Unavailab le DELILAH (HERNANDO), Renata GARLAND MD Unavailable Unavailab le DELILAH (HERNANDO), Renata GARLAND MD Unavailable Unavailab le DELILAH (HERNANDO), Renata GARLAND MD Unavailable Unavailab le DELILAH (HERNANDO), Renata GARLAND MD Unavailable Unavailab le DELILAH (HERNANDO), Renata GARLAND MD Unavailable Unavailab le DELILAH (HERNANDO), Renata GARLAND MD Unavailable Unavailab le DELILAH (HERNANDO), Renata GARLAND MD Unavailable Unavailab le DELILAH (HERNANDO), Renata GARLAND MD Unavailable Unavailab le DELILAH (HERNANDO), Renata GARLAND MD Unavailable Unavailab le DELILAH (HERNANDO), Renata GARLAND MD Unavailable Unavailab le DELILAH (HERNANDO), Renata GARLAND MD Unavailable Unavailab le DELILAH (HERNANDO), Renata GARLAND MD Unavailable Unavailab le DELILAH (HERNANDO), Renata GARLAND MD Unavailable Unavailab le DELILAH (HERNANDO), Renata GARLAND MD Unavailable Unavailab le DELILAH (HERNANDO), Renata GARLAND MD Unavailable Unavailab le DELILAH (HERNANDO), Renata GARLAND MD Unavailable Unavailab le DELILAH (HERNANDO), Renata GARLAND MD Unavailable Unavailab le DELILAH (HERNANDO), Renata GARLAND MD Unavailable Unavailab le DELILAH (HERNANDO), Renata GARLAND MD Unavailable Unavailab le DELILAH (HERNANDO), Renata GARLAND MD Unavailable Unavailab le DELILAH (HERNANDO), Renata GARLAND MD Unavailable Unavailab le DELILAH (HERNANDO), Renata GARLAND MD Unavailable Unavailab le DELILAH (HERNANDO), Renata GARALND MD Unavailable Unavailab le DELILAH (HERNANDO), Renata GARLAND MD Unavailable Unavailab le DELILAH (HERNANDO), Renata GARLAND MD Unavailable Unavailab le DELILAH (HERNANDO), Renata GARLAND MD Unavailable Unavailab le DELILAH (HERNANDO), Rneata GARLAND MD Unavailable Unavailab le DELILAH (HERNANDO), Renata GARLAND MD Unavailable Unavailab le DELILAH (HERNANDO), Renata GARLAND MD Unavailable Unavailab le DELILAH (HERNANDO), Renata GARLAND MD Unavailable Unavailab le DELILAH (HERNANDO), Renata GARLAND MD Unavailable Unavailab le DELILAH (HERNANDO), Renata GARLAND MD Unavailable Unavailab le DELILAH (HERNANDO), Renata GARLAND MD Unavailable Unavailab le DELILAH (HERNANDO), Renata GARLAND MD Unavailable Unavailab le DELILAH (HERNANDO), Renata GARLAND MD Unavailable Unavailab le DELILAH (HERNANDO), Renata GARLAND MD Unavailable Unavailab le DELILAH (HERNANDO), Renata GARLAND MD Unavailable Unavailab le DELILAH (HERNANDO), Renata GARLAND MD Unavailable Unavailab le DELILAH (HERNANDO), Renata GARLAND MD Unavailable Unavailab le Mignon F Brown, F MARINE ERECTOR MARINE ERECTOR Unavailable Unavailable Mignon F Brown, F MARINE ERECTOR MARINE ERECTOR Unavailable Unavailable [place]tr[place], Roosevelt DO Unavailable Unavailable Chau, Roosevelt DO Unavailable Unavailable [place], Roosevelt DO Unavailable Unavailable Chau, Roosevelt DO Unavailable Unavailable Carlstadt, M Galina PA Unavailable Unavailable Carlstadt, M Galina PA Unavailable Unavailable Carlstadt, M Galina PA Unavailable Unavailable Carlstadt, M Galina PA Unavailable Unavailable HINS, DAISY PA Unavailable Unavailable HINS, DAISY PA Unavailable Unavailable HINS, DAISY PA Unavailable Unavailable HINS, DAISY PA Unavailable Unavailable HINS, DAISY PA Unavailable Unavailable HINS, DAISY PA Unavailable Unavailable HINS, DAISY PA Unavailable Unavailable HINS, DAISY PA Unavailable Unavailable Baird, M Mona MARINE ERECTOR Unavailable Unavailable Baird, M Mona MARINE ERECTOR Unavailable Unavailable Baird, M Mona MARINE ERECTOR Unavailable Unavailable Baird, M Mona MARINE ERECTOR Unavailable Unavailable Baird, M Mona MARINE ERECTOR Unavailable Unavailable Baird, M Mona MARINE ERECTOR Unavailable Unavailable Baird, M Moan MARINE ERECTOR Unavailable Unavailable Baird, M Mona MARINE ERECTOR Unavailable Unavailable Baird, M Mona MARINE ERECTOR Unavailable Unavailable Baird, M Mona MARINE ERECTOR Unavailable Unavailable Hadian, Jesus Unavailable Unavailable Hadian, Jesus Unavailable Unavailable Hadian, Jesus Unavailable Unavailable Hadian, Jesus Unavailable Unavailable Hadian, Jesus Unavailable Unavailable Hadian, Jesus Unavailable Unavailable Hadian, Jesus Unavailable Unavailable Hadian, Jesus Unavailable Unavailable Hadian, Jesus Unavailable Unavailable Hadian, Jesus Unavailable Unavailable Hadian, Jesus Unavailable Unavailable Hadian, Jesus Unavailable Unavailable Hadian, Jesus Unavailable Unavailable Hadian, Jesus Unavailable Unavailable Hadian, Jesus Unavailable Unavailable Hadian, Jesus Unavailable Unavailable Hadian, Jesus Unavailable Unavailable Hadian, Jesus Unavailable Unavailable Hadian, Jesus Unavailable Unavailable Hadian, Jesus Unavailable Unavailable Hadian, Jesus Unavailable Unavailable Hadian, Jesus Unavailable Unavailable Hadian, Jesus Unavailable Unavailable Hadian, Jesus Unavailable Unavailable Hadian, Jesus Unavailable Unavailable Hadian, Jesus Unavailable Unavailable Hadian, Jesus Unavailable Unavailable Hadian, Jesus Unavailable Unavailable Hadian, Jesus Unavailable Unavailable Hadian, Jesus Unavailable Unavailable Hadian, Jesus Unavailable Unavailable Hadian, Jesus Unavailable Unavailable Hadian, Jesus Unavailable Unavailable Hadian, Jesus Unavailable Unavailable Hadian, Jesus Unavailable Unavailable Hadian, Jesus Unavailable Unavailable Hadian, Jesus Unavailable Unavailable Hadian, Jesus Unavailable Unavailable Hadian, Jesus Unavailable Unavailable Hadian, Jesus Unavailable Unavailable Hadian, Jesus Unavailable Unavailable Hadian, Jesus Unavailable Unavailable Peter, Cleve Cruz MD Unavailable Unavailable Strong, A Nelly MARINE ERECTOR Unavailable Unavailable Strong, A Nelly MARINE ERECTOR Unavailable Unavailable Strong, A Nelly MARINE ERECTOR Unavailable Unavailable Strong, A Nelly MARINE ERECTOR Unavailable Unavailable Strong, A Nelly MARINE ERECTOR Unavailable Unavailable Strong, A Nelly MARINE ERECTOR Unavailable Unavailable Strong, A Nelly MARINE ERECTOR Unavailable Unavailable Strong, A Nelly MARINE ERECTOR Unavailable Unavailable Strong, A Nelly MARINE ERECTOR Unavailable Unavailable Strong, A Nelly MARINE ERECTOR Unavailable Unavailable Strong, A Nelly MARINE ERECTOR Unavailable Unavailable Strong, A Nelly MARINE ERECTOR Unavailable Unavailable Strong, A Nelly MARINE ERECTOR Unavailable Unavailable Strong, A Nelly MARINE ERECTOR Unavailable Unavailable Strong, A Nelly MARINE ERECTOR Unavailable Unavailable Strong, A Nelly MARINE ERECTOR Unavailable Unavailable Strong, A Nelly MARINE ERECTOR Unavailable Unavailable Strong, A Nelly MARINE ERECTOR Unavailable Unavailable Strong, A Nelly MARINE ERECTOR Unavailable Unavailable Strong, A Nelly MARINE ERECTOR Unavailable Unavailable Strong, A Nelly MARINE ERECTOR Unavailable Unavailable Aubree Cheng DO Unavailable Unavailable Aubree Cheng DO Unavailable Unavailable Kayla, Annie MD Unavailable Unavailable Kayla, Annie MD Unavailable Unavailable Kayla, Annie MD Unavailable Unavailable Kayla, Annie MD Unavailable Unavailable Kayla, Annie MD Unavailable Unavailable Kayla, Annie MD Unavailable Unavailable Kayla, Annie MD Unavailable Unavailable Kayla, Annie MD Unavailable Unavailable Kayla, Annie MD Unavailable Unavailable Kayla, Annie MD Unavailable Unavailable Kayla, Annie MD Unavailable Unavailable Kayla, Annie MD Unavailable Unavailable Kayla, Annie MD Unavailable Unavailable Kayla, Annie MD Unavailable Unavailable Kayla, Annie MD Unavailable Unavailable Kayla, Annie MD Unavailable Unavailable Kayla, Annie MD Unavailable Unavailable Kayla, Annie MD Unavailable Unavailable Kayla, Annie MD Unavailable Unavailable Kayla, Annie MD Unavailable Unavailable Kayla, Annie MD Unavailable Unavailable Kayla, Annie MD Unavailable Unavailable Kayla, Annie MD Unavailable Unavailable Kayla, Annie MD Unavailable Unavailable Kayla, Annie MD Unavailable Unavailable Kayla, Annie MD Unavailable Unavailable Kayla, Annie MD Unavailable Unavailable Kayla, Annie MD Unavailable Unavailable Kayla, Annie MD Unavailable Unavailable Kayla, Annie MD Unavailable Unavailable Kayla, Annie MD Unavailable Unavailable Kayla, Annie MD Unavailable Unavailable Kayla, Annie MD Unavailable Unavailable Kayla, Annie MD Unavailable Unavailable Kayla, Annie MD Unavailable Unavailable Kayla, Annie MD Unavailable Unavailable Kayla, Annie MD Unavailable Unavailable Kayla, Annie MD Unavailable Unavailable Kayla, Annie MD Unavailable Unavailable Kayla, Annie MD Unavailable Unavailable Kayla, Annie MD Unavailable Unavailable Kayla, Annie MD Unavailable Unavailable Kayla, Annie MD Unavailable Unavailable Kayla, Annie MD Unavailable Unavailable Kayla, Annie MD Unavailable Unavailable Kayla, Annie MD Unavailable Unavailable Kayla, Annie MD Unavailable Unavailable Kayla, Annie MD Unavailable Unavailable Kayla, Annie MD Unavailable Unavailable Kayla, Annie MD Unavailable Unavailable Kayla, Annie MD Unavailable Unavailable Kayla, Annie MD Unavailable Unavailable Kayla, Annie MD Unavailable Unavailable Kayla, Annie MD Unavailable Unavailable Kayla, Annie MD Unavailable Unavailable Kayla, Annie MD Unavailable Unavailable Kayla, Annie MD Unavailable Unavailable Kayla, Annie MD Unavailable Unavailable Kayla, Annie MD Unavailable Unavailable Kayla, Annie MD Unavailable Unavailable Kayla, Annie MD Unavailable Unavailable Kayla, Annie MD Unavailable Unavailable Aleksey, [id number] MD Nam CHARLES Unavailable + [phone], [id number] MD Nam CHARLES Unavailable +[phone] [address], [id number] MD Nam CHARLES Unavailable + [phone], [id number] MD Nam CHARLES Unavailable + [phone], [id number] MD Nam MD Unavailable Aleksey, [id number] MD Nam MD Unavailable Aleksey, [id number] MD Nam MD Unavailable Aleksey, [id number] MD Nam MD Unavailable Aleksey, [id number] MD Nam MD Unavailable Aleksey, [id number] MD Nam MD Unavailable Aleksey, [id number] MD Nam MD Unavailable Aleksey, [id number] MD Nam MD Unavailable Aleksey, [id number] MD Nam MD Unavailable Aleksey, [id number] MD Nam MD Unavailable Aleksey, [id number] MD Nam MD Unavailable Aleksey, [id number] MD Nam MD Unavailable Aleksey, [id number] MD Nam MD Unavailable Aleksey, [id number] MD Nam MD Unavailable Aleksey, [id number] MD Nam MD Unavailable Aleksey, [id number] MD Nam MD Unavailable Aleksey, [id number] MD Nam MD Unavailable Aleksey, [id number] MD Nam MD Unavailable Aleksey, [id number] MD Nam MD Unavailable Aleksey, [id number] MD Nam MD Unavailable Aleksey, [id number] MD Nam MD Unavailable Aleksey, [id number] MD Nam MD Unavailable Aleksey, [id number] MD Nam MD Unavailable [phone] Aleksey, [id number] MD Nam CHARLES Unavailable [phone] [address], [id number] MD Nam CHARLES Unavailable [phone], [id number] MD Nam CHARLES Unavailable [phone], [id number] MD Nam CHARLES Unavailable +[phone] [address], [id number] MD Nam CHARLES Unavailable + [phone], [id number] MD Nam CHARLES Unavailable +[phone] Stiven Ellison Unavailable Unavailable Cleve Green MD Unavailable Unavailable Cleve Green MD Unavailable Unavailable BROWN, AMERICA MIGNON INSULATION WORKER Unavailable Unavailable BROWN, AMERICA MIGNON INSULATION WORKER Unavailable Unavailable BROWN, AMERICA MIGNON INSULATION WORKER Unavailable Unavailable BROWN, AMERICA MIGNON INSULATION WORKER Unavailable Unavailable BROWN, AMERICA MIGNON INSULATION WORKER Unavailable Unavailable BROWN, AMERICA MIGNON INSULATION WORKER Unavailable Unavailable BROWN, AMERICA MIGNON INSULATION WORKER Unavailable Unavailable BROWN, AMERICA MIGNON INSULATION WORKER Unavailable Unavailable BROWN, AMERICA MIGNON INSULATION WORKER Unavailable Unavailable BROWN, AMERICA MIGNON INSULATION WORKER Unavailable Unavailable BROWN, AMERICA MIGNON INSULATION WORKER Unavailable Unavailable BROWN, AMERICA MIGNON INSULATION WORKER Unavailable Unavailable BROWN, AMERICA MIGNON INSULATION WORKER Unavailable Unavailable BROWN, AMERICA MIGNON INSULATION WORKER Unavailable Unavailable BROWN, AMERICA MIGNON INSULATION WORKER Unavailable Unavailable BROWN, AMERICA MIGNON INSULATION WORKER Unavailable Unavailable BROWN, AMERICA MIGNON INSULATION WORKER Unavailable Unavailable BROWN, AMERICA MIGNON INSULATION WORKER Unavailable Unavailable BROWN, AMERICA MIGNON INSULATION WORKER Unavailable Unavailable BROWN, AMERICA MIGNON INSULATION WORKER Unavailable Unavailable BROWN, AMERICA MIGNON INSULATION WORKER Unavailable Unavailable BROWN, AMERICA MIGNON INSULATION WORKER Unavailable Unavailable BROWN, AMERICA MIGNON INSULATION WORKER Unavailable Unavailable BROWN, AMERICA MIGNON INSULATION WORKER Unavailable Unavailable BROWN, AMERICA MIGNON INSULATION WORKER Unavailable Unavailable BROWN, AMERICA MIGNON INSULATION WORKER Unavailable Unavailable BROWN, AMERICA MIGNON INSULATION WORKER Unavailable Unavailable BROWN, AMERICA MIGNON INSULATION WORKER Unavailable Unavailable BROWN, AMERICA MIGNON INSULATION WORKER Unavailable Unavailable BROWN, AMERICA MIGNON INSULATION WORKER Unavailable Unavailable BROWN, AMERICA MIGNON INSULATION WORKER Unavailable Unavailable BROWN, AMERICA MIGNON INSULATION WORKER Unavailable Unavailable BROWN, AMERICA MIGNON INSULATION WORKER Unavailable Unavailable BROWN, AMERICA MIGNON INSULATION WORKER Unavailable Unavailable BROWN, AMERICA MIGNON INSULATION WORKER Unavailable Unavailable BROWN, AMERICA MIGNON INSULATION WORKER Unavailable Unavailable BROWN, AMERICA MIGNON INSULATION WORKER Unavailable Unavailable BROWN, AMERICA MIGNON INSULATION WORKER Unavailable Unavailable BROWN, AMERICA MIGNON INSULATION WORKER Unavailable Unavailable BROWN, AMERICA MIGNON INSULATION WORKER Unavailable Unavailable Kocan, J Fransisca POWER WOOD SAWYER Unavailable Unavailable Kocan, J Fransisca POWER WOOD SAWYER Unavailable Unavailable Kocan, J Fransisca POWER WOOD SAWYER Unavailable Unavailable Kocan, J Fransisca POWER WOOD SAWYER Unavailable Unavailable Kocan, J Fransisca POWER WOOD SAWYER Unavailable Unavailable Kocan, J Fransisca POWER WOOD SAWYER Unavailable Unavailable Kocan, J Fransisca POWER WOOD SAWYER Unavailable Unavailable Kocan, J Fransisca POWER WOOD SAWYER Unavailable Unavailable Kocan, J Fransisca POWER WOOD SAWYER Unavailable Unavailable Kocan, J Fransisca POWER WOOD SAWYER Unavailable Unavailable Kocan, J Fransisca POWER WOOD SAWYER Unavailable Unavailable Kocan, J Fransisca POWER WOOD SAWYER Unavailable Unavailable Kocan, J Fransisca POWER WOOD SAWYER Unavailable Unavailable Nam Ryder MD Unavailable Unavailable EROS OAKLEY MD Unavailable Unavailable EROS OAKLEY MD Unavailable Unavailable EROS OAKLEY MD Unavailable Unavailable EROS OAKLEY MD Unavailable Unavailable EROS OALKEY MD Unavailable Unavailable EROS OAKLEY MD Unavailable Unavailable EROS OAKLEY MD Unavailable Unavailable VANWAGNER, DIOGO DO Unavailable Unavailable VANWAGNER, DIOGO DO Unavailable Unavailable VANWAGNER, DIOGO DO Unavailable Unavailable VANWAGNER, DIOGO DO Unavailable Unavailable VANWAGNER, DIOGO DO Unavailable Unavailable VANWAGNER, DIOGO DO Unavailable Unavailable VANWAGNER, DIOGO DO Unavailable Unavailable VANWAGNER, DIOGO DO Unavailable Unavailable VANWAGNER, DIOGO DO Unavailable Unavailable VANWAGNER, DIOGO DO Unavailable Unavailable VANWAGNER, DIOGO DO Unavailable Unavailable VANWAGNER, DIOGO DO Unavailable Unavailable VANWAGNER, DIOGO DO Unavailable Unavailable VANWAGNER, DIOGO DO Unavailable Unavailable VANWAGNER, DIOGO DO Unavailable Unavailable VANWAGNER, DIOGO DO Unavailable Unavailable Ellison, E Ciera PA PA Unavailable [phone] Ellison, E Ciera PA PA Unavailable [phone] Ellison, E Ciera PA PA Unavailable [phone] Ellison, E Ciera PA PA Unavailable [phone] Ellison, E Ciera PA PA Unavailable [phone] ESTRADA COLINDRES MD Unavailable Unavailable ESTRADA COLINDRES MD Unavailable Unavailable ESTRADA COLINDRES MD Unavailable Unavailable ESTRADA COLINDRES MD Unavailable Unavailable ESTRADA COLINDRES MD Unavailable Unavailable ESTRADA COLINDRES MD Unavailable Unavailable ESTRADA COLINDRES MD Unavailable Unavailable ESTRADA COLINDRES MD Unavailable Unavailable ESTRADA COLINDRES MD Unavailable Unavailable ESTRADA COLINDRES MD Unavailable Unavailable ESTRADA COLINDRES MD Unavailable Unavailable ESTRADA COLINDRES MD Unavailable Unavailable ESTRADA COLINDRES MD Unavailable Unavailable ESTRADA COLINDRES MD Unavailable Unavailable ETSRADA COLINDRES MD Unavailable Unavailable ESTRADA COLINDRES MD Unavailable Unavailable BAYLEE HENAO MD Unavailable Unavailable BAYLEE HENAO MD Unavailable Unavailable BAYLEE HENAO MD Unavailable Unavailable BAYLEE HENAO MD Unavailable Unavailable BAYLEE HENAO MD Unavailable Unavailable BAYLEE HENAO MD Unavailable Unavailable BAYLEE HENAO MD Unavailable Unavailable BAYLEE HENAO MD Unavailable Unavailable BAYLEE HENAO MD Unavailable Unavailable BAYLEE HENAO MD Unavailable Unavailable BAYLEE HENAO MD Unavailable Unavailable BAYLEE HENAO MD Unavailable Unavailable BAYLEE HENAO MD Unavailable Unavailable BAYLEE HENAO MD Unavailable Unavailable BAYLEE HENAO MD Unavailable Unavailable BAYLEE HENAO MD Unavailable Unavailable BAYLEE HENAO MD Unavailable Unavailable BAYLEE HENAO MD Unavailable Unavailable BAYLEE HENAO MD Unavailable Unavailable BAYLEE HENAO MD Unavailable Unavailable Radha Ortega MD Unavailable Unavailable Radha Ortega MD Unavailable Unavailable Aubree Tarango MD Unavailable Unavailable Claudio Sood MD Unavailable [phone] Claudio Sood MD Unavailable [phone] Claudio Sood MD Unavailable [phone] Claudio Sood MD Unavailable [phone] Claudio Sood MD Unavailable [phone] Claudio Sood MD Unavailable [phone] Claudio Sood MD Unavailable [phone] Claudio Sood MD Unavailable [phone] Clauido Sood MD Unavailable [phone] Claudio Sood MD Unavailable [phone] Claudio Sood MD Unavailable Barrie Claudio Suarez MD Unavailable [phone] Barrie Claudio Suarez MD Unavailable [phone] Barrie Claudio Suarez MD Unavailable [phone] Barrie Claudio Suarez MD Unavailable [phone] Barrie Claudio Suarez MD Unavailable [phone] MARAVEGIAS, Guevara PINEAD MD Unavailable Unavailable MARAVEGIAS, Guevara PINEDA MD Unavailable Unavailable MARAVEGIAS, Guevara PINEDA MD Unavailable Unavailable MARAVEGIAS, Guevara PINEDA MD Unavailable Unavailable MARAVEGIAS, Guevara PINEDA MD Unavailable Unavailable MARAVEGIAS, Guevara PINEDA MD Unavailable Unavailable MARAVEGIAS, Guevara PINEDA MD Unavailable Unavailable MARAVEGIAS, Guevara PINEDA MD Unavailable Unavailable MARAVEGIAS, Guevara PINEDA MD Unavailable Unavailable MARAVEGIAS, Guevara PINEDA MD Unavailable Unavailable MARAVEGIAS, Guevara PINEDA MD Unavailable Unavailable MARAVEGIAS, Guevara PINEDA MD Unavailable Unavailable MARAVEGIAS, Guevara PINEDA MD Unavailable Unavailable MARAVEGIAS, Guevara PINEDA MD Unavailable Unavailable Michelle, F Vladimir PA Unavailable Unavailable Ruskin, F Vladimir PA Unavailable Unavailable Michelle, F Vladimir PA Unavailable Unavailable Michelle, F Vladimir PA Unavailable Unavailable Michelle, F Vladimir PA Unavailable Unavailable Ruskin, F Vladimir PA Unavailable Unavailable Ruskin, F Vladimir PA Unavailable Unavailable Ruskin, F Vladimir PA Unavailable Unavailable Michelle, F Vladimir PA Unavailable Unavailable Ruskin, F Vladimir PA Unavailable Unavailable ZEGIL, D ANN MARINE ERECTOR Unavailable Unavailable ZEGIL, D ANN MARINE ERECTOR Unavailable Unavailable ZEGIL, D ANN MARINE ERECTOR Unavailable Unavailable DELILAH (HERNANDO), Renata GARLAND MD Unavailable Unavailab le DELILAH (HERNANDO), Renata GARLAND MD Unavailable Unavailab le DELILAH (HERNANDO), Renata GARLAND MD Unavailable Unavailab le DELILAH (HERNANDO), Renata GARLAND MD Unavailable Unavailab le DELILAH (HERNANDO), Renata GARLAND MD Unavailable Unavailab le DELILAH (HERNANDO), Renata GARLAND MD Unavailable Unavailab le DELILAH (HERNANDO), Renata GARLAND MD Unavailable Unavailab le DELILAH (HERNANDO), Renata GARLAND MD Unavailable Unavailab le DELILAH (HERNANDO), Renata GARLAND MD Unavailable Unavailab le DELILAH (HERNANDO), Renata GARLAND MD Unavailable Unavailab le DELILAH (HERNANDO), Renata GARLAND MD Unavailable Unavailab le DELILAH (HERNANDO), Renata GARLAND MD Unavailable Unavailab le DELILAH (HERNANDO), Renata GARLAND MD Unavailable Unavailab le DELILAH (HERNANDO), Renata GARLAND MD Unavailable Unavailab le DELILAH (HERNANDO), Renata GARLAND MD Unavailable Unavailab le DELILAH (HERNANDO), Renata GARLAND MD Unavailable Unavailab le DELILAH (HERNANDO), Renata GARLAND MD Unavailable Unavailab le DELILAH (HERNANDO), Renata GARLAND MD Unavailable Unavailab le DELILAH (HERNANDO), Renata GARLAND MD Unavailable Unavailab le DELILAH (HERNANDO), Renata GARLAND MD Unavailable Unavailab le DELILAH (HERNANDO), Renata GARLAND MD Unavailable Unavailab le DELILAH (HERNANDO), Renata GARLAND MD Unavailable Unavailab le DELILAH (HERNANDO), Renata GARLAND MD Unavailable Unavailab le DELILAH (HERNANDO), Renata GARLAND MD Unavailable Unavailab le DELILAH (HERNANDO), Renata GARLAND MD Unavailable Unavailab le DELILAH (HERNANDO), Renata GARLAND MD Unavailable Unavailab le DELILAH (HERNANDO), Renata GARLAND MD Unavailable Unavailab le DELILAH (HERNANDO), Renata GARLAND MD Unavailable Unavailab le DELILAH (HERNANDO), Renata GARLAND MD Unavailable Unavailab le DELILAH (HERNANDO), Renata GARLAND MD Unavailable Unavailab le DELLIAH (HERNANDO), Renata AGRLAND MD Unavailable Unavailab le DELILAH (HERNANDO), Renata GARLAND MD Unavailable Unavailab le DELILAH (HERNANDO), Renata GARLAND MD Unavailable Unavailab le DELILAH (HERNANDO), Renata GARLAND MD Unavailable Unavailab le DELILAH (HERNANDO), Renata GARLAND MD Unavailable Unavailab le DELILAH (HERNANDO), Renata GARLAND MD Unavailable Unavailab le DELILAH (HERNANDO), Renata GARLAND MD Unavailable Unavailab le DELILAH (HERNANDO), Renata GARLAND MD Unavailable Unavailab le DELILAH (HERNANDO), Renata GARLAND MD Unavailable Unavailab le DELILAH (HERNANDO), Renata GARLAND MD Unavailable Unavailab le DELILAH (HERNANDO), Renata GARLAND MD Unavailable Unavailab le DELILAH (HERNANDO), Renata GARLAND MD Unavailable Unavailab le DELILAH (HERNANDO), Renata GARLAND MD Unavailable Unavailab le DELILAH (HERNANDO), Renata GARLAND MD Unavailable Unavailab le DELILAH (HERNANDO), Renata GARLAND MD Unavailable Unavailab le DELILAH (HERNANDO), Renata GARLAND MD Unavailable Unavailab le DELILAH (HERNANDO), Renata GARLAND MD Unavailable Unavailab le DELILAH (HERNANDO), Renata GARLAND MD Unavailable Unavailab le DELILAH (HERNANDO), Renata GARLAND MD Unavailable Unavailab le DELILAH (HERNANDO), Renata GARLAND MD Unavailable Unavailab le DELILAH (HERNANDO), Renata GARLAND MD Unavailable Unavailab le DELILAH (HERNANDO), Renata GARLAND MD Unavailable Unavailab le DELILAH (HERNANDO), Renata GARLAND MD Unavailable Unavailab le DELILAH (HERNANDO), Renata GARLAND MD Unavailable Unavailab le DELILAH (HERNANDO), Renata GARLAND MD Unavailable Unavailab le DELILAH (HERNANDO), Renata GARLAND MD Unavailable Unavailab le DELILAH (HERNANDO), Renata GARLAND MD Unavailable Unavailab le DELILAH (HERNANDO), Renata GARLAND MD Unavailable Unavailab le DELILAH (HERNANDO), Renata GARLAND MD Unavailable Unavailab le DELILAH (HERNANDO), Renata GARLAND MD Unavailable Unavailab le DELILAH (HERNANDO), Renata GARLAND MD Unavailable Unavailab le DELILAH (HERNANDO), Renata GARLAND MD Unavailable Unavailab le DELILAH (HERNANDO), Renata GARLAND MD Unavailable Unavailab le DELILAH (HERNANDO), Renata GARLAND MD Unavailable Unavailab le DELILAH (HERNANDO), Renata GARLAND MD Unavailable Unavailab le DELILAH (HERNANDO), Renata GARLAND MD Unavailable Unavailab le DELILAH (HERNANDO), Renata GARLAND MD Unavailable Unavailab le DELILAH (HERNANDO), Renata GARLAND MD Unavailable Unavailab le DELILAH (HERNANDO), Renata GARLAND MD Unavailable Unavailab le DELILAH (HERNANDO), Renata GARLAND MD Unavailable Unavailab le DELILAH (HERNANDO), Renata GARLAND MD Unavailable Unavailab le DELILAH (HERNANDO), Renata GARLAND MD Unavailable Unavailab le DELILAH (HERNANDO), Renata GARLAND MD Unavailable Unavailab le DELILAH (HERNANDO), Renata GARLAND MD Unavailable Unavailab le DELILAH (HERNANDO), Renata GARLAND MD Unavailable Unavailab le DELILAH (HERNANDO), Renata GARLAND MD Unavailable Unavailab le DELILAH (HERNANDO), Renata GARLAND MD Unavailable Unavailab le DELILAH (HERNANDO), Renata GARLAND MD Unavailable Unavailab le DELILAH (HERNANDO), Renata GARLAND MD Unavailable Unavailab le DELILAH (HERNANDO), Renata GARLAND MD Unavailable Unavailab le DELILAH (HERNANDO), Renata GARLAND MD Unavailable Unavailab le DELILAH (HERNANDO), Renata GARLAND MD Unavailable Unavailab le DELILAH (HERNANDO), Renata GARLAND MD Unavailable Unavailab le DELILAH (HERNANDO), Renata GARLAND MD Unavailable Unavailab le DELILAH (HERNANDO), Renata GARLAND MD Unavailable Unavailab le DELILAH (HERNANDO), Renata GARLAND MD Unavailable Unavailab le DELILAH (HERNANDO), Renata GARLAND MD Unavailable Unavailab le Chater, Khoa Hill MD Unavailable Unavailable Chater, Khoa Hill MD Unavailable Unavailable Chater, Khoa Hill MD Unavailable Unavailable Chater, Khoa Hill MD Unavailable Unavailable Chater, Khoa Hill MD Unavailable Unavailable Chater, Khoa Hill MD Unavailable Unavailable Chater, Khoa Hill MD Unavailable Unavailable Chater, Khoa Hill MD Unavailable Unavailable Chater, Khoa Hill MD Unavailable Unavailable Chater, Khoa Hill MD Unavailable Unavailable Chater, Khoa Hill MD Unavailable Unavailable Chater, Khoa Hill MD Unavailable Unavailable Chater, Khoa Hill MD Unavailable Unavailable Chater, Khoa Hill MD Unavailable Unavailable Chater, Khoa Hill MD Unavailable Unavailable Chater, Khoa Hill MD Unavailable Unavailable Chater, Khoa Hill MD Unavailable Unavailable Chater, Khoa Hill MD Unavailable Unavailable Chater, Khoa Hill MD Unavailable Unavailable Chater, Khoa Hill MD Unavailable Unavailable Chater, Khoa Hill MD Unavailable Unavailable Agley, L Yodit PA Unavailable Unavailable Agley, L Yodit PA Unavailable Unavailable Agley, L Yodit PA Unavailable Unavailable Agley, L Yodit PA Unavailable Unavailable Agley, L Yodit PA Unavailable Unavailable Agley, L Yodit PA Unavailable Unavailable Agley, L Yodit PA Unavailable Unavailable Agley, L Yodit PA Unavailable Unavailable Agley, L Yodit PA Unavailable Unavailable Ananth, J Radha PA Unavailable [phone] Ananth, J Radha PA Unavailable [phone] Ananth, J Radha PA Unavailable [phone] Ananth, J Radha PA Unavailable [phone] Provider, Generic Unavailable Unavailable UNKNOWN Unavailable Unavailable Renata Adkins PA Unavailable Unavailable MunRenata fraser PA Unavailable Unavailable Renata Adkins PA Unavailable Unavailable Aubree Tarango MD Unavailable Wood, L Valerie MD Unavailable Wood, L Valerie MD Unavailable Wood, L Valerie MD Unavailable Wood, L Valerie MD Unavailable Wood, L Valerie MD Unavailable Wood, L Valerie MD Unavailable Wood, L Valerie MD Unavailable Wood, L Valerie MD Unavailable Wood, L Valerie MD Unavailable Wood, L Valerie MD Unavailable Wood, L Valerie MD Unavailable Wood, L Valerie MD Unavailable Wood, L Valerie MD Unavailable Wood, L Valerie MD Unavailable Wood, L Valerie MD Unavailable Wood, L Valerie MD Unavailable Wood, L Valerie MD Unavailable Wood, L Valerie MD Unavailable Wood, L Valerie MD Unavailable Wood, L Valerie MD Unavailable Wood, L Valerie MD Unavailable Wood, L Valerie MD Unavailable Wood, L Valerie MD Unavailable Wood, L Valerie MD Unavailable Wood, L Valerie MD Unavailable Wood, L Valerie MD Unavailable Wood, L Valerie MD Unavailable Wood, L Valerie MD Unavailable Wood, L Valerie MD Unavailable Wood, L Valerie MD Unavailable Wood, L Valerie MD Unavailable Wood, L Valerie MD Unavailable Aubree Tarango MD Unavailable + Aubree Tarango MD Unavailable + Aubree Tarango MD Unavailable + Aubree Tarango MD Unavailable + Aubree Tarango MD Unavailable Aubree Tarango MD Unavailable + Aubree Tarango MD Unavailable + Rposper Aubree Ann Unavailable Unavailable Ortiz Aguero Unavailable Unavailable Ortiz gAuero Unavailable Unavailable Ortiz Aguero Unavailable Unavailable Re-disclosure Warning The records that you are about to access may contain information from federally-assisted alcohol or drug abuse programs. If such information is present, then the following federally mandated warning applies: This information has been disclosed to you from records protected by federal confidentiality rules (42 CFR part 2). The federal rules prohibit you from making any further disclosure of this information unless further disclosure is expressly permitted by the written consent of the person to whom it pertains or as otherwise permitted by 42 CFR part 2. A general authorization for the release of medical or other information is NOT sufficient for this purpose. The Federal rules restrict any use of the information to criminally investigate or prosecute any alcohol or drug abuse patient.The records that you are about to access may contain highly sensitive health information, the redisclosure of which is protected by Article 27-F of the [facility] Public Health law. If you continue you may have access to information: Regarding HIV / AIDS; Provided by facilities licensed or operated by the [facility] Office of Mental Health; or Provided by the [facility] Office for People With Developmental Disabilities. If such information is present, then the following [facility] mandated warning applies: This information has been disclosed to you from confidential records which are protected by state law. State law prohibits you from making any further disclosure of this information without the specific written consent of the person to whom it pertains, or as otherwise permitted by law. Any unauthorized further disclosure in violation of state law may result in a fine or detention sentence or both. A general authorization for the release of medical or other information is NOT sufficient authorization for further disc losure. Allergies and Adverse Reactions Type Description Substance Reaction Status Data Source(s ) Drug allergy Drug allergy ustekinumab (From Stelara) Other S [facility] Drug allergy Drug allergy silver (From Tegaderm AG Mesh) Itching I [facility] Drug allergy Drug allergy sulfasalazine Other S [facility] Drug allergy Drug allergy Sulfa (Sulfonamide Antibiotics) Other S [facility] Drug allergy Drug allergy metoclopramide HCl (From Reglan) Hallucinat ions S [facility] Drug allergy Drug allergy ustekinumab (From Stelara) Macular Edema [facility] Drug allergy Drug allergy eculizumab (From Soliris) Anaphy lactic Shock Unknown Reaction [facility] Drug allergy Drug allergy adhesive tape skin irritation/redness M [facility] Drug allergy Drug allergy sulfasalazine (From Azulfidine) Liver failure S Toxic Hepatitis S [facility] Drug allergy Drug allergy Sulfa (Sulfonamide Antibiotics) Liver failure S Toxic Hepatitis S [facility] Drug allergy Drug allergy duloxetine HCl (From Cymbalta) serotonin syndrome S [facility] Drug allergy Drug allergy metoclopramide HCl (From Reglan) Hallucinat ions [facility] Family History Family Member Name Family Member Gender Family Member Status Date o f Status Description Data Source(s) Unknown Unknown Problem [facility] (Dr Estrada Colindres) Encounters Encounter Providers Location Date Indications Data Source(s ) Emergency Attender: Erick DAHLttender: Purvi arevalo MD [facility]-ED 08/23/2021 10:55:00 AM EST - 08/23/2021 02:46:00 PM EST SWELLING OF TONGUE, DIFFICULTY SWALLOING [facility] SWELLING OF TONGUE, DIFFICULTY SWALLOING Patient discharged. Outpatient Attender: UNKNOWN [facility]-LABEJN 07/31/2021 03:12:00 PM E [facility] Outpatient Attender: Valerie Tarango MDAttender: Valerie Tarango MD E D-LABPNP 07/31/2021 01:22:00 PM EDT - 07/31/2021 01:23:00 PM EDT [id number] [facility] [place] R7303 [id number] Patient discharged. Outpatient Attender: Valerie Tarango MD [facility]-CPSLAPCP 2020 02:21:00 PM EDT - 07/29/2021 02:22:00 PM EDT [facility] Patient discharged. Outpatient Attender: Valerie Tarango MDAttender: Valerie Tarango MD E D-LAB 07/16/2021 03:26:00 PM EDT - 07/16/2021 03:27:00 PM EDT D72.829 [facility] D72.829 Patient discharged. OFFICE OUTPATIENT NEW 30 MINUTES Attender: Andreas Morfin MD Physic al Therapy 07/16/2021 09:00:00 AM EDT [facility] ([facility]) Emergency Attender: WIN CEDILLO ED-ED 07/10 05:53:00 PM EDT - 07/10/2021 07:14:00 PM EDT JAW AND EAR PAIN, CRACKED TOOTH [facility] JAW AND EAR PAIN, CRACKED TOOTH Patient discharged. Outpatient Attender: UNKNOWN [facility]-LABEJN 07/03/2021 08:12:00 PM E DT [facility] Outpatient Attender: Nam Ryder MDAttender: [phone] Nam Ryder MD ED-LABPNP 07/03/2021 04:07:00 PM EDT - 07/03/2021 04:08:00 PM EDT L40.50 [facility] L40.50 Patient discharged. Outpatient Attender: BAYLEE HENAO [facility] 06/12 12:53:00 PM EDT - 07/02/2021 12:54:00 PM EDT [facility] Patient discharged. Outpatient Referrer: Nelly Aguilar MARINE ERECTOR 07/01/2021 10:16:14 AM EDT [facility] Outpatient Attender: [id number] Nam Ryder MD [facility]-CPSC ARHE 06/23/2021 01:47:00 PM EDT - 06/23/2021 01:48:00 PM EDT [facility] Patient discharged. Emergency Attender: Ann Cheng DOAttender: Ann guerrero DO CPSCAORT-ED 06/21/2021 09:57:00 PM EDT - 06/22/2021 01:52:00 AM EDT POST SURGICAL PAIN [facility] POST SURGICAL PAIN Patient discharged. Outpatient Attender: BAYLEE HENAO MD CPSJUDY-SDCSDC 2020 06:38:00 AM EDT - 06/14/2021 01:00:00 PM EDT HYSTERECTOMY; CERVICAL POLYPS [facility] HYSTERECTOMY; CERVICAL POLYPS Patient discharged. Outpatient Attender: BAYLEE SHRESTHA-SDCSDC 06/13/2021 1 1:49:00 AM EDT DNC [facility] DN Outpatient Attender: BAYLEE HENAO MD ED-LABPNP 2020 09:00:00 AM EDT - 06/11/2021 09:01:00 AM EDT Z01.812 [facility] Z01.812 Patient discharged. Outpatient Attender: BAYLEE HENAO MD CPSJUDY-CPSCNOBG 05/12 01:23:00 PM EDT - 06/06/2021 [facility]24[facility] Att[facility]: RAD CPSCAMAITE-LABEJN 06/05/2021 02:37:00 PM E [facility] Outpatient Attender: Valerie Tarango MDAttender: Valerie Saleem D-LABPNP 06/05/2021 12:44:00 PM EDT - 06/05/2021 12:45:00 PM EDT L4050 [facility] [place] L4050 Patient discharged. Outpatient Attender: Jessica Davila MD CPSCAORT-IMACN 021 12:29:00 PM EDT - 06/04/2021 12:30:00 PM EDT R20.2 [facility] R20.2 Patient discharged. Outpatient Attender: Jesus Figueroa ED-LABPNP 01:27:00 PM EDT - 05/27/2021 01:28:00 PM EDT Z20.828 [facility] Z20.828 Patient discharged. Outpatient Attender: Jessica Davila MD CPSCAMAITE-CPSCANEU 05/14 12:54:00 PM EDT - 05/14/2021 12:55:00 PM EDT [facility] Patient discharged. Outpatient Attender: UNKNOWN [facility]-LABEJN 05/06/2021 02:45:00 PM E [facility] Outpatient Attender: Nam Ryder MDAttender: [phone] Nam Ryder MD ED-LABPNP 05/06/2021 01:40:00 PM EDT - 05/06/2021 01:41:00 PM EDT L40.50 [facility] L40.50 Patient discharged. Outpatient Attender: UNKNOWN [facility]-LABEJN 05/05/2021 09:42:00 AM E [facility] Outpatient Attender: [place] FNPAttender: MIGNON GROVES NP ED-IMAG 05/05/2021 07:38:00 AM EDT - 05/05/2021 07:39:00 AM EDT N950 [id number] [facility] N950 [id number] Patient discharged. Outpatient Attender: Valerie Tarango MDAttender: Valerie Tarango MD C PSCAORT-CPSLAPCP 04/22/2021 12:29:00 PM EDT - 04/22/2021 12:30:00 PM EDT K92.1,R13.10 [facility] K92.1,R13.10 Patient discharged. Preadmit Attender: [phone] Nam Ryder MD CPS[facility]ORT-INFU SPD 04/18/2021 10:00:[facility]-LABEJN 04/17/2021 01:57:00 PM EDT [facility] Outpatient Attender: [place] FNPAttender : MIGNON GROVES NP CPSCAORT-LABEJN 04/15/2021 07:29:00 PM EDT Z12.4 [facility] Z12.4 Outpatient Attender: [place] FNPAttender: MIGNON GROVES NP ED-LABPNP 04/15/2021 03:11:00 PM EDT - 04/15/2021 03:12:00 PM EDT Z124 [facility] Z124 Patient discharged. Outpatient Attender: MIGNON GROVES NP [facility]-CPSGNOBG 03/2021 01:24:00 PM EDT - 04/15/2021 01:25:00 PM EDT [facility] Patient discharged. Emergency Attender: EROS OAKLEY MD CPSCAORT-ED 2020 01:23:00 PM EDT - 04/11/2021 03:59:00 PM EDT ABDOMINAL PAIN [facility] ABDOMINAL PAIN Patient discharged. Outpatient Attender: DAISY CEDILLO [facility]-CPSLAUCC 11/2020 12:13:00 PM EDT - 04/11/2021 12:14:[facility] Attender: UNKNOWN [facility]-LABEJN 03/28/2021 03:07:00 PM E DT [facility] Outpatient Attender: Nam Ryder MDAttender: [phone] Nam Ryder MD ED-LABPNP 03/28/2021 12:12:00 PM EDT - 03/28/2021 12:13:00 PM EDT L4050 [facility] L4050 Patient discharged. Outpatient [facility]-LABEJN 03/25/2021 09:42:00 AM EDT [facility] Outpatient Attender: Valerie Tarango MDAttender: Valerie Tarango MD E D-LAB 03/25/2021 08:26:00 AM EDT - 03/25/2021 08:27:00 AM EDT R300 [facility] [place] R300 Patient discharged. Preadmit Attender: [id number] [facility] 03/17/2021 12:00:00 PM EDT REMICADE [facility] REMICADE Emergency Attender: Galina Dinh PAAttender: Roosevelt Ritchie DO CPSCAORT-ED 03/07/2021 11:01:00 AM EDT - 03/07/2021 03:25:00 PM EDT PALPITATIONS, PAIN WITH URINATION [facility] PALPITATIONS, PAIN WITH URINATION Patient discharged. Outpatient CPSCAORT-LABEJN 03/03/2021 03:16:00 PM EDT [facility] Outpatient Attender: Valerie Tarango MDAttender: Valerie Tarango MD E D-LAB 03/03/2021 09:57:00 AM EDT - 03/03/2021 09:58:00 AM EDT R300 [facility] [place] R300 Patient discharged. Outpatient Attender: [facility] 2020 10:14:00 AM EDT - 02/21/2021 10:15:00 AM EDT [facility] Patient discharged. Outpatient Attender: Win Ray MD [facility] 10:59:00 AM EDT - 02/11/2021 11:00:00 AM EDT [facility] Patient discharged. Preadmit Attender: Ciera [facility]EDILLO [facility] 02/08/2021 1 2:00:00 AM EDT [facility] Outpatient Attender: UNKNOWN CPSCAORT-LABEJN 02/07/2021 03:08:00 PM E DT [facility] Outpatient Attender: Nelly Aguilar FNPAttender: Nimisha fonseca ED-LAB 02/07/2021 10:56:00 AM EDT - 02/07/2021 10:57:00 AM EDT K7581 R1011 R1012 K219 [facility] K7581 R1011 R1012 K219 Patient discharged. Outpatient Attender: Nam Ryder MDAttender: [phone] Nam Ryder MD CPSCAORT-INFUSPD 02/06/2021 10:06:00 AM EDT - 02/06/2021 01:12:00 PM ED T REMICADE [facility] REMICADE Patient discharged. R Attender: Ciera CEDILLO ED-PRSGHPT 10:30:00 AM EDT - 02/07/2021 12:01:00 AM EDT [facility] Patient discharged. Outpatient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 [facility] R10.13 Epigastric pain EPIGASTRIC PAIN Diagnosis 07/10/2020 03:4 9:00 PM [facility] R19.7 Diarrhea, unspecified DIARRHEA, UNSPECIFIED Diagnosis 07/10/2020 03:49:00 PM [facility] Surgeries/Procedures Procedure Description Date Indications Data Source(s) Administration of influenza virus vaccine 07/29/2021 1 2:00:00 AM [facility] 98818 IIV4 VACC NO PRSV 0.5 ML IM 07/29/2021 12:00:00 AM [facility] OFFICE OUTPATIENT NEW 30 MINUTES 07/16/2021 12:00:00 A [facility] ([facility]) Non-covered item or service 07/10/2021 12:00:00 AM [facility] Unclassified drugs 07/10/2021 12:00:00 AM [facility] NJX ANES TRIGEMINAL NRV ANY DIV/BRANCH 07/10/2021 12:0 0:00 AM [facility] EMERGENCY DEPARTMENT VISIT MODERATE SEVERITY EMERGENCY DEPT VISIT 07/10/2021 12:00:00 AM [facility] outpatient clinic visit for assessment and ma nagement of a patient Hospital Outpatient Clinic Visit 07/02/2021 12:00:00 AM [facility] Non-covered item or service NON-COVERED ITEM OR SERVICE 06/11 12:00:00 AM [facility] CT ABDOEN & PELVIS W/CONTRAST MATERIAL CT ABD & PELV W/CONTR AST 06/21/2021 12:00:00 AM [facility] Low osmolar contrast material, 300-399 mg/ml iodine co ncentration, per ml Locm 300-399mg/ml iodine,1ml Long 06/21/2021 12:00:00 AM [facility] URNLS DIP STICK/TABLET REAGENT AUTO MICROSCOPY 021 12:00:00 AM [facility] BLOOD COUNT SMEAR MCRSCP W/MNL DIFRNTL WBC COUNT 06/21 12:00:00 AM [facility] BLOOD COUNT COMPLETE AUTOMATED COMPLETE CBC AUTOMATED 2020 12:00:00 AM [facility] COMPREHENSIVE METABOLIC PANEL COMPREHEN METABOLIC PANEL 06/11 12:00:00 AM [facility] Injection, hydromorphone, up to 4 mg 06/21/2021 12:00: 00 AM [facility] THERAPEUTIC INJECTION IV PUSH EACH NEW DRUG TX/PRO/DX INJ NE W DRUG ADDON 06/21/2021 12:00:00 AM [facility] THER PROPH/DX NJX IV PUSH SINGLE/1ST SBST/DRUG THER/PROPH/DI AG INJ IV PUSH 06/21/2021 12:00:00 AM [facility] EMERGENCY DEPT VISIT HIGH SEVERITY&THREAT FUNCJ EMERGENCY DE PT VISIT 06/21/2021 12:00:00 AM [facility] BLOOD COUNT COMPLETE AUTO&AUTO DIFRNTL WBC COUNT COMPLETE CB C W/AUTO DIFF WBC 06/21/2021 12:00:00 AM [facility] HYSTEROSCOPY BX ENDOMETRIUM&/POLYPC W/WO D&C 12:00:00 AM [facility] LEVEL IV SURG PATHOLOGY GROSS&MICROSCOPIC EXAM TISSUE EXAM B Y PATHOLOGIST 06/14/2021 12:00:00 AM [facility] Injection, propofol, 10 mg 06/14/2021 12:00:00 AM [facility] Injection, fentanyl citrate, 0.1 mg 06/14/2021 12:00:0 0 AM [facility] Injection, midazolam hydrochloride, per 1 mg 12:00:00 AM [facility] Injection, ketorolac tromethamine, per 15 mg 12:00:00 AM [facility] Injection, heparin sodium, per 1000 units 06/14/2021 1 2:00:00 AM [facility] Injection, heparin sodium, (heparin lock flush), per 10 unit s 06/14/2021 12:00:00 AM [facility] Injection, dexamethasone sodium phosphate, 1mg 021 12:00:00 AM [facility] Injection, cefazolin sodium, 500 mg 06/14/2021 12:00:0 0 AM [facility] Excision of Cervix, Via Natural or Artificial Opening Endoscopic, Diagnostic EXCISION OF CERVIX, ENDO, DIAGN 06/14/2021 12:00:00 AM [facility] Extraction of Endometrium, Via Natural o r Artificial Opening Endoscopic, Diagnostic EXTRACTION OF ENDOMETRIUM, ENDO, DIAGN 06/14/2021 12:00:00 AM [facility] BLOOD TYPING ABO BLOOD TYPING SEROLOGIC ABO 06/13/2021 12:00:00 AM [facility] ANTIBODY SCREEN RBC EACH SERUM TECHNIQUE RBC ANTIBODY SCREEN 06/13/2021 12:00:00 AM [facility] COMPATIBILITY EACH UNIT ANTIGLOBULIN COMPATIBILITY TEST ANTI GLOB 06/13/2021 12:00:00 AM [facility] GONADOTROPIN CHORIONIC QUANTITATIVE CHORIONIC GONADOTROPIN T EST 06/13/2021 12:00:00 AM [facility] URINE TEST VISUAL COLOR CMPRSN METHS URINE PREGNAN CY TEST 06/13/2021 12:00:00 AM [facility] MRI SPINAL CANAL CERVICAL W/O CONTRAST MATRL MRI NECK SPINE W/O DYE 06/04/2021 12:00:00 AM [facility] [address] NRV CNDJ TEST 9-10 STUDIES 05/14/2021 12:00:00 AM [facility] CUL PRSMPTV PTHGNC ORGANISM SCRN W/COLONY ESTIMJ CULTURE SCR EEN ONLY 04/22/2021 12:00:00 AM [facility] U0003 SARS-CoV-2 detection by nucleic acid 04/22/2021 12:00: 00 AM [facility] COLLECTION VENOUS BLOOD VENIPUNCTURE ROUTINE VENIPUNCTURE 12:00:00 AM [facility] IRON BINDING CAPACITY IRON BINDING TEST 04/22/2021 12:00:00 AM [facility] IRON ASSAY OF IRON 04/22/2021 12:00:00 AM [facility] Screening cytopathology, cervical or vag inal (any reporting system), collected in preservative fluid, automated thin layer preparation, screening by floor layer under physician supervision 04/15/2021 12:00:00 AM [facility] ECG ROUTINE ECG W/LEAST 12 LDS TRCG ONLY W/O I&R ELECTROCARD IOGRAM TRACING 04/11/2021 12:00:00 AM [facility] URNLS DIP STICK/TABLET RGNT NON-AUTO W/O MICRSCP URINALYSIS NONAUTO W/O SCOPE 04/11/2021 12:00:00 AM [facility] ULTRASOUND ABDOMINAL REAL TIME W/IMAGE LIMITED ECHO EXAM OF ABDOMEN 04/11/2021 12:00:00 AM [facility] URNLS DIP STICK/TABLET RGNT AUTO W/O MICROSCOPY URINALYSIS A UTO W/O SCOPE 04/11/2021 12:00:00 AM [facility] TROPONIN QUANTITATIVE ASSAY OF TROPONIN QUANT 04/11/2021 12:00:00 A M [facility] C-REACTIVE PROTEIN C-REACTIVE PROTEIN 04/11/2021 12:00:00 AM [facility] LIPASE ASSAY OF LIPASE 04/11/2021 12:00:00 AM [facility] Injection, pantoprazole sodium, per vial 04/11/2021 12 :00:00 AM [facility] IV INFUSION HYDRATION EACH ADDITIONAL HOUR 04/11/2021 12:00:00 AM [facility] URNLS DIP STICK/TABLET REAGENT AUTO MICROSCOPY URINALYSIS AU TO W/SCOPE 03/25/2021 12:00:00 AM [facility] 0003M 02/07/2021 12:00:00 AM [facility] COLLECTION VENOUS BLOOD VENIPUNCTURE ROUTINE VENIPUNCTURE 12:00:00 AM [facility] HEPATIC FUNCTION PANEL HEPATIC FUNCTION PANEL 02/07/2021 12:00:00 A M [facility] THERAPEUTIC PX 1/> AREAS EACH 15 MIN EXERCISES THERAPEUTIC E XERCISES 01/23/2021 12:00:00 AM [facility] [address] PT EVAL LOW COMPLEX 20 MIN 01/21/2021 12:00:00 AM [facility] FLUOROSCOPY SPX <1 HOUR PHYSICIAN TIME FLUOROSCOPY <1 HR PHY S/QHP 01/13/2021 12:00:00 AM [facility] Injection, sodium ferric gluconate complex in sucrose inject ion, 12.5 mg 01/09/2021 12:00:00 AM [facility] RPLCMT COMPL RUFINO CTR VAD W/SUBQ PORT 01/07/2021 12:00: 00 AM [facility] [address] X-RAY EXAM CHEST 1 VIEW 01/07/2021 12:00:00 AM [facility] [address] SARS-COV-2 COVID-19 AMP PRB 01/07/2021 12:00:00 AM [facility] Insertion of Totally Implantable Vascula r Access Device into Chest Subcutaneous Tissue and Fascia, Open Approach INSERTION OF TIVAD INTO CHEST SUBCU/FASC IA, OPEN APPROACH 01/07/2021 12:00:00 AM [facility] Removal of Totally Implantable Vascular Access Device from Trunk Subcutaneous Tissue and Fascia, Open Approach REMOVAL OF TIVAD FROM TRUNK SUBCU/FASCIA , OPEN APPROACH 01/07/2021 12:00:00 AM [facility] MOTION FLUOR EVAL SWLNG FUNCJ C/V REC MOTION FLUOROSCOPY/SWA LLOW 01/02/2021 12:00:00 AM [facility] SWALLOWING FUNCJ W/CINERADIOGRAPY/VIDRADIOG X-RAY XM SWLNG F UNCJ C+ 01/02/2021 12:00:00 AM [facility] [address] X-RAY EXAM CHEST 2 VIEWS 12/22/2020 12:00:[address] [facility] NASAL ENDOSCOPY DIAGNOSTIC UNI/BI SPX NASAL ENDOSCOPY DX 12:00:[address] [facility] VITAMIN K ASSAY OF VITAMIN K 10/18/2020 12:00:[address] [facility] TOCOPHEROL ALPHA VITAMIN E ASSAY OF VITAMIN E 10/18/2020 12:00:[address] [facility] THYROID STIMULATING HORMONE TSH ASSAY THYROID STIM HORMONE 0 10/18/2020 12:00:[address] [facility] VITAMIN A ASSAY OF VITAMIN A 10/18/2020 12:00:[address] [facility] 25 HYDROXY INCLUDES FRACTIONS IF PERFORMED VITAMIN D 25 HYDR OXY 10/18/2020 12:00:[address] [facility] CYANOCOBALAMIN VITAMIN B-12 VITAMIN B-12 10/18/2020 12:00:[address] [facility] SEDIMENTATION RATE RBC NON-AUTOMATED RBC SED RATE NONAUTOMAT ED 10/18/2020 12:00:[address] [facility] HEMOGLOBIN GLYCOSYLATED A1C GLYCOSYLATED HEMOGLOBIN TEST 05/2021 12:00:[address] [facility] Infusion, normal saline solution , 250 cc 10/18/2020 1 2:00:[address] [facility] Injection, alteplase recombinant, 1 mg 10/18/2020 12:0 0:[address] [facility] Injection infliximab, 10 mg 10/18/2020 12:00:[address] [facility] CHEMOTHERAPY ADMN IV INFUSION TQ EA HR CHEMO IV INFUSION ADD L HR 10/18/2020 12:00:[address] [facility] CHEMOTX ADMN IV NFS TQ UP 1 HR SBST/DRUG CHEMO IV INFU YESI 1 HR 10/18/2020 12:00:[address] [facility] DECLOT BY THROMBOLYTIC AGENT IMPLANT DEVICE/CATH DECLOT VASC ULAR DEVICE 10/18/2020 12:00:[address] [facility] Introduction of Monoclonal Antibody into Central Vein, Percutaneous Approach INTRODUCE MONOCLONAL ANTIBODY IN CENTRAL VEIN, PERC 10/18/2020 12:00:[address] [facility] [address] THORAX W/CONTRAST MATERIAL CT THORAX W/DYE 10/16/2020 12:00:[address] [facility] THROMBOPLASTIN TIME PARTIAL PLASMA/WHOLE BLOOD THROMBOPLASTI N TIME PARTIAL 10/16/2020 12:00:[address] [facility] PROTHROMBIN TIME PROTHROMBIN TIME 10/16/2020 12:00:[address] [facility] MAGNESIUM ASSAY OF MAGNESIUM 10/16/2020 12:00:[address] [facility] Colonoscopy 10/11/2020 12:00:00 AM [facility] Renata ELLISON (Dr Estrada Colindres) ARTHROCENTESIS ASPIR&/INJECTION INTERM JT/BURSA DRAIN/INJ CAMI INT/BURSA W/O US 10/01/2020 12:00:[address] [facility] Injection, triamcinolone acetonide, not otherwise specified , 10 mg 10/01/2020 12:00:[address] [facility] Ondansetron 1 mg, oral, fda approved pre scription anti-emetic, for use as a complete therapeutic substitute for an iv anti-emetic at the time of chemotherapy treatment, not to exceed a 48 hour dosage regimen 09/12/2020 12:00:[address] [facility] FLUOROSCOPIC GUIDANCE NEEDLE PLACEMENT NEEDLE LOCALIZATION B Y XRAY 08/22/2020 12:00:[address] [facility] ARTHROCENTESIS ASPIR&/INJECTION MAJOR JT/BURSA DRAIN/INJ SETH NT/BURSA W/O US 08/22/2020 12:00:[address] [facility] Injection, ropivacaine hydrochloride, 1 mg 08/22/2020 12:00:[address] [facility] Injection, methylprednisolone acetate, 80 mg 0 12:00:[address] [facility] RADEX SPINE LUMBOSACRAL 2/3 VIEWS X-RAY EXAM L-S SPINE 2/3 V WS 07/29/2020 12:00:00 AM [facility] MRI ANY JT LOWER EXTREM W/O CONTRAST MATRL MRI JNT OF LWR EX NAMITA W/O DYE 07/16/2020 12:00:00 AM [facility] Results ID Date Data Source [id number] 08/23/2021 10:55:00 AM EST [facility] Name: ANGELIA ARTHUR [facility] Rec #: [id number] : 1965 Age/Sex: 55F Date of Service: 08/23/21 PHYSICIAN CHART Physician Documentation [facility] Name: Angelia Arthur Age: 55 yrs Sex: Female : 1965 Arrival Date: 08/23/2021 Time: 10:55 Bed 12 Private MD: Valerie Tarango L ED Physician Purvi Ortega Disposition: 08/23 14:39 Attestation: I discussed the plan of care with [facility] and agree with what they have documented. I have reviewed relevant laboratory values and/or imaging studies. HPI: 11:39 This 55 yrs old Female presents to ER via Walk-In tcm with complaints of Swelling Of Tongue, Difficulty Swallowing. 11:39 The patient describes throat pain as. Onset: The tcm symptoms/episode began/occurred yesterday, and became worse. Patient presenting to ER complaining of swelling sensation below her tongue since the day prior. Patient reports she recently had esophageal dilation performed 2 weeks ago though otherwise no recent surgeries or dental work, states that she did have some dental pain yesterday though this has since resolved. Denies any fevers chills nausea or vomiting however states that the bottom of her jaw and below her tongue has been tender, causing it to be painful to swallow.. 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 gabapentin 600 mg Oral tab 1 tab 3 times per day 2. losartan 100 mg Oral tab 1 tab once daily 3. Motrin 800 mg Oral tab 1 tab 3 times per day 4. omeprazole 40 mg Oral cpDR 1 cap once daily 5. remicade infusions 900 mg once a month 6. Restasis 0.05 % ophthalmic (eye) dpet 1 drop every 12 hours 7. ropinirole 1 mg Oral tab 1 tab I mg in am and in afternoon and 2 mg at bedtime 8. Vitamin B-12 Oral tab - PMHx: ARTHRITIS; CHRONIC BACK PAIN; GERD; liver failure; LUPUS; myasthenia gravis; psoriasis arthritis; pulmonary emboli ([id number]); - PSHx: Port Placement; R-hip repair; R-knee repair; spinal fusion; - Med Reconciliation:: Green Alert: The patient's med list is complete to the best of the nurse's/provider's knowledge. Medications reviewed, completed by nurse verbally from patient/family. - Immunization history,: The patient's last tetanus vaccination was more than 10 years ago. Flu vaccine is up to date. Pneumococcal vaccine is not up to date. Patient has never been vaccinated. COVID-19 vaccine: Two dose series partially complete. - Advance directive: There is no existing advanced directive. Information offered. - Family History:: mother : unknown medical history. Father : unknown medical history. - Social History: Smoking status (Tobacco): Patient admits to smoking tobacco products on some days. No barriers to communication noted, The patient speaks fluent Ivorian. ROS: 11:41 ENT: Positive for dental pain, difficulty swallowing, sore tcm throat, See HPI. All other systems are negative. Exam: 11:41 Head/Face: Normocephalic, atraumatic. ENT: Nares patent. tcm No nasal discharge, no septal abnormalities noted. Tympanic membranes are normal and external auditory canals are clear. Oropharynx with no redness, swelling, or masses, exudates, or evidence of obstruction, uvula midline. Mucous membranes moist. Mild tenderness to palpation on underside of chin and jawline without discernible lymphadenopathy Neck: Trachea midline, no thyromegaly or masses palpated, full range of motion without nuchal rigidity, or vertebral point tenderness. No Meningismus. Cardiovascular: Regular rate and rhythm with a normal S1 and S2. No pulse deficits. Respiratory: Lungs have equal breath sounds bilaterally, clear to auscultation. No rales, rhonchi or wheezes noted. No increased work of breathing, no retractions or nasal flaring. Abdomen/GI: Soft, non-tender, with normal bowel sounds. No distension or tympany. No guarding or rebound. No evidence of tenderness throughout. Skin: Warm, dry with normal turgor. Normal color with no rashes, no lesions, and no evidence of cellulitis. 11:41 Constitutional: The patient appears to have no acute distress, appears alert, appears anxious, appears to be awake, appears comfortable. 11:41 Neuro: Orientation: is normal, to person, place, time & situation. Mentation: is normal, responsive to voice lucid, able to follow commands, Memory: is normal, immediate memory is intact, recent memory is intact, remote memory is intact. Vital Signs: 11:04 BP 159 / 101; Pulse 93; Resp 20; Temp 98.0(TE); Pulse Ox kendrick 95% on R/A; Weight 113.4 kg (R); Height 5 ft. 3 in. (160.02 cm) (R); 12:03 BP 163 / 93; Pulse 85; Resp 18; Pulse Ox 95% on R/A; Pain ryan 8/10; 13:20 BP 137 / 72; Pulse 76; Resp 16; Temp 97.6; Pulse Ox 97% on jv2 R/A; 14:43 BP 135 / 79; Pulse 71; Resp 16; Temp 98.0; Pulse Ox 97% ; jv2 11:04 Body Mass Index 44.29 (113.40 kg, 160.02 cm) kendrick MDM: 11:16 Patient medically screened. tcm 14:30 Data reviewed: vital signs, nurses notes, lab test tcm result(s), cardiac enzymes, CBC, electrolytes, EKG, radiologic studies, CT scan. ED course: Patient presented to ER complaining of sensation of swelling and discomfort in her tongue, CT soft tissue of the neck was ordered which showed the area in question, no CT findings consistent with her symptoms, no evidence of glossitis or fluid collection, no adenopathy and normal sublingual region. Her vitals have been normal she has been afebrile and swallowing, breathing without significant difficulty while in the emergency department. She did report some brief chest discomfort, EKG was obtained as well as a negative troponin, EKG was normal sinus rhythm with no ST elevations or depressions, I advised patient to take OTC analgesia as needed going forward, she is agreeable to the plan for discharge and we discussed strict return precautions for any worsening swelling or inability to swallow any food or fluids and patient was agreeable. She has been comfortable and cooperative with exam and interview.. 08/23 11:21 Order name: Cbc With Auto Differe ntial [facility] 08/23 11:21 Order name: COMMET [facility] 08/23 11:21 Order name: C-Reactive Protein,Wide Range [facility] 08/23 11:21 Order name: Lactic Acid [facility] 08/23 11:21 Order name: CT Neck Soft Tissue W Contrast [facility] 08/23 12:34 Order name: Troponin I [facility] 08/23 12:34 Order name: Emergency Room EKG Order - Use EKG Work-Up tcm /Quick Select; Complete Time: 13:10 08/23 12:34 Order name: Cardiology EKG Interpretation - Choose Reason tcm for Test Dispensed Medications: 12:00 Drug: NS 0.9% 1000 ml [sodium chloride 0.9 % intravenous ryan solution] Route: IV; Rate: 999 mL/hr; Site: left antecubital; 13:58 Follow up: Response: No adverse reaction; IV Status: ryan Completed infusion; IV Intake: 1000ml 12:05 Drug: Ondansetron (PF) 4 mg [ondansetron HCl (PF) 4 mg/2 mL ryan injection solution (2 mL )] Route: IVP; Infused Over: 2 mins; Site: left antecubital; 12:30 Follow up: Response: Nausea is decreased; No adverse jv2 reaction 12:08 Drug: ketorolac 15 mg [ketorolac 30 mg/mL (1 mL) injection ryan solution (0.5 mL)] Route: IVP; Site: left antecubital; 12:30 Follow up: Response: No adverse reaction; Pain is decreased jv2 13:58 Drug: Ofirmev 1000 mg [Ofirmev 1,000 mg/100 mL (10 mg/mL) ryan intravenous solution] Volume: 100 ml; Route: IVPB; Rate: 400 mL/hr; Infused Over: 15 mins; Site: left antecubital; Delivery: Primary pump; 14:44 Follow up: Response: No adverse reaction; IV Status: jv2 Completed infusion; IV converted to saline lock; IV Intake: 100ml Disposition Summary: 08/23/21 14:33 Discharge Ordered Location: Home/Self Care tcm Condition: Good tcm Diagnosis - Dysphagia, unspecified tcm Followup: tcm - With: Valerie Tarango MD - When: 2 - 3 days - Reason: Further diagnostic work-up, Recheck today's complaints, Continuance of care, If symptoms persist Discharge Instructions: - Discharge Summary Sheet tcm Forms: - Medication Reconciliation tcm Prescriptions: - prednisone 5 mg Oral tablet - take 1 tablet by ORAL route once daily for 5 days; tcm 5 tablet; Refills: 0, Product Selection Permitted Signatures: Dispatcher [employer] Purvi Hightower MD MD jtv Miglietta, Thomas, PA PA tcm Vaquez, Jill, RN RN jv2 Winsome Briones RN RN kal Sykes, Rebecca, RN RN ryan Corrections: (The following items were deleted from the chart) 13:19 11:21 Access patients port ordered. tcm jv2 Name Value Range Interpretation Code Description Data Ekta rce(s) Supporting Document(s) ID Date Data Source [id number] 08/23/2021 10:55:00 AM [facility] Name: ANGELIA ARTHUR [facility] Rec #: [id number] : 1965 Age/Sex: 55F Date of Service: 08/23/21 DISPOSITION SUMMARY Discharge Summary [facility] Name:Angelia Arthur Emergency Department Age:55 yrs Sex:Female :1965 Arrival:08/23/2021 10:55 Departure Date08/23/2021 Departure Time14:46 Private MD:Valerie Tarango MD Outcome: Discharge Location: Home/Self Care Condition: Good Chief Complaint: Swelling Of Tongue, Difficulty Swallowing Diagnosis: Dysphagia, unspecified Prescriptions: prednisone 5 mg Oral tablet - take 1 tablet by ORAL route once daily for 5 days; 5 tablet Follow up: Valerie Tarango MD Custom Notes: Attending Physician: Purvi Ortega MD Private MD: Valerie Tarango MD Mid Level Provider: Erick Aguero PA Followup Physician: Valerie Tarango MD Orders: Cbc With Auto Differential, COMMET, C-Reactive Protein,Wide Range, Lactic Acid, CT Neck Soft Tissue W Contrast, Troponin I, Access port, ketorolac, Ondansetron (PF), NS 0.9%, Emergency Room EKG Order - Use EKG Work-Up /Quick Select, Cardiology EKG Interpretation - Choose Reason for Test, Ofirmev Discharge Instruction: Discharge Summary Sheet, Medication Reconciliation Name Value Range Interpretation Code Description Data Ekta rce(s) Supporting Document(s) ID Date Data Source [id number] 08/23/2021 10:55:00 AM EST [facility] Name: ANGELIA ARTHUR [facility] Rec #: [id number] : 1965 Age/Sex: 55F Date of Service: 08/23/21 NURSE CHART Nurse's Notes [facility] Name: Angelia Arthur Age: 55 yrs Sex: Female : 1965 Arrival Date: 08/23/2021 Time: 10:55 Bed 12 Private MD: Valerie Tarango L Diagnosis: Dysphagia, unspecified Presentation: 08/23 11:05 Transition of care: patient was not received from another [facility] setting of care. Presenting complaint: Patient states - Started with tongue swelling and dysphagia on . Painful to swallow. Have you travelled in the last 30 days? No. Have you had contact with an individual with a confirmed diagnosis of Ebola or COVID-19? No. 11:05 Method Of Arrival: Walk-In [facility] 11:05 Acuity: Urgent - 3 [facility] Triage Assessment: 11:06 SEPSIS SCREEN: A Confirmed or Suspected Infection is kendrick Unknown, their temperature is not <96.8 or >100.9, their heart rate is >90, their RR rate is >20, it is unknown if their WBC is <4 or >12, the patient does not have new or unexplained altered mental status. SIRS or Sepsis criteria is not present. Suicide Screening: Have you had thoughts of harming yourself or others? No, Behavioral health complaint? No. The patient appears to be uncomfortable, The patient is cooperative. Patient states the pain is currently a 7 / 10 The patient complains of pain in uvula, left aspect of posterior pharynx, right aspect of posterior pharynx and tongue. Patient denies any radiating pain. The patient states the pain began 2days ago. The quality of the pain is described as aching, The pain is described as continuous. 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 gabapentin 600 mg Oral tab 1 tab 3 times per day 2. losartan 100 mg Oral tab 1 tab once daily 3. Motrin 800 mg Oral tab 1 tab 3 times per day 4. omeprazole 40 mg Oral cpDR 1 cap once daily 5. remicade infusions 900 mg once a month 6. Restasis 0.05 % ophthalmic (eye) dpet 1 drop every 12 hours 7. ropinirole 1 mg Oral tab 1 tab I mg in am and in afternoon and 2 mg at bedtime 8. Vitamin B-12 Oral tab - PMHx: ARTHRITIS; CHRONIC BACK PAIN; GERD; liver failure; LUPUS; myasthenia gravis; psoriasis arthritis; pulmonary emboli ([id number]); - PSHx: Port Placement; R-hip repair; R-knee repair; spinal fusion; - Med Reconciliation:: Green Alert: The patient's med list is complete to the best of the nurse's/provider's knowledge. Medications reviewed, completed by nurse verbally from patient/family. - Immunization history,: The patient's last tetanus vaccination was more than 10 years ago. Flu vaccine is up to date. Pneumococcal vaccine is not up to date. Patient has never been vaccinated. COVID-19 vaccine: Two dose series partially complete. - Advance directive: There is no existing advanced directive. Information offered. - Family History:: mother : unknown medical history. Father : unknown medical history. - Social History: Smoking status (Tobacco): Patient admits to smoking tobacco products on some days. No barriers to communication noted, The patient speaks fluent Ivorian. Screenin:11 AUDIT 1. How often do you have a drink containing alcohol? jv2 Never (0 points). Drug Abuse Screening Test: 1. Have you used drugs other than those required for medical reasons? No (0 points), screen is complete, no risk. Abuse screen: Denies threats or abuse. Denies injuries from another. Nutritional screening: The patient is obese. The patient does not have a history of falls (0 points). Assessment: 12:59 See Triage Assessment. jv2 13:22 Reassessment: Patient reports she is seeing "green dots" on jv2 the floor, has chest pain, clutching her chest at times, and "I just don't feel good". Providers are aware. EKG has been done, patient is placed on the monitor, and cardiac enzymes have been ordered. . Vital Signs: 11:04 BP 159 / 101; Pulse 93; Resp 20; Temp 9 8.0(TE); Pulse Ox kendrick 95% on R/A; Weight 113.4 kg (R); Height 5 ft. 3 in. (160.02 cm) (R); 12:03 BP 163 / 93; Pulse 85; Resp 18; Pulse Ox 95% on R/A; Pain ryan 8/10; 13:20 BP 137 / 72; Pulse 76; Resp 16; Temp 97.6; Pulse Ox 97% on jv2 R/A; 14:43 BP 135 / 79; Pulse 71; Resp 16; Temp 98.0; Pulse Ox 97% ; jv2 11:04 Body Mass Index 44.29 (113.40 kg, 160.02 cm) [facility] ED Course: 11:00 Patient arrived in ED. cc4 11:05 Valerie Tarango MD is Private Physician. kendrick 11:06 Triage completed. kendrick 11:07 Arm band placed on right wrist. Patient placed in exam room [facility] Patient has correct armband on for positive identification. 11:10 Haylee Ogden, CECY is Primary Nurse. kendrick 11:10 Erick Aguero PA is PHCP. tcm 11:10 Purvi Ortega MD is Attending Physician. tcm 11:57 Labs drawn by ED staff. Inserted saline lock: 20 gauge in ryan left antecubital area and blood collected. 12:58 Radiology: The patient went to get his/her CT at 12:59. jv2 12:58 CT Neck Soft Tissue W Contrast Sent. jv2 13:05 Radiology: Patient returned from CT at 13:05. jv2 13:06 An EKG was obtained and reviewed by Purvi Ortega MD. jv2 13:06 Cardiology EKG Interpretation - Choose Reason for Test Sent.jv2 13:11 Patient has correct armband on for positive identification, jv2 Placed in gown, Bed in low position, Call light in reach, Side rails up X 1. monitor worker on. Pulse on is on. NIBP on. Assisted to bathroom. 13:20 Door closed. Lights dimmed. Verbal reassurance given. Warm jv2 blanket given. 13:20 No procedures ordered. jv2 14:32 Valerie Tarango MD is Referral Physician. tcm 14:44 Discontinued IV lock intact, bleeding controlled, pressure jv2 dressing applied, No redness/swelling at site. Administered Medications: 12:00 Drug: NS 0.9% 1000 ml [sodium chloride 0.9 % intravenous ryan solution] Route: IV; Rate: 999 mL/hr; Site: left antecubital; 13:58 Follow up: Response: No adverse reaction; IV Status: ryan Completed infusion; IV Intake: 1000ml 12:05 Drug: Ondansetron (PF) 4 mg [ondansetron HCl (PF) 4 mg/2 mL ryan injection solution (2 mL)] Route: IVP; Infused Over: 2 mins; Site: left antecubital; 12:30 Follow up: Response: Nausea is decreased; No adverse jv2 reaction 12:08 Drug: ketorolac 15 mg [ketorolac 30 mg/mL (1 mL) injection ryan solution (0.5 mL)] Route: IVP; Site: left antecubital; 12:30 Follow up: Response: No adverse reaction; Pain is decreased jv2 13:58 Drug: Ofirmev 1000 mg [Ofirmev 1,000 mg/100 mL (10 mg/mL) ryan intravenous solution] Volume: 100 ml; Route: IVPB; Rate: 400 mL/hr; Infused Over: 15 mins; Site: left antecubital; Delivery: Primary pump; 14:44 Follow up: Response: No adverse reaction; IV Status: jv2 Completed infusion; IV converted to saline lock; IV Intake: 100ml Intake: 13:58 IV: 1000ml; Total: 1000ml. ryan 14:44 IV: 100ml; Total: 1100ml. jv2 Outcome: 14:33 Discharge ordered by [facility] 14:45 Patient verbalized understanding of disposition jv2 instructions. Patient has no functional deficits. 14:45 Patient discharged to home ambulatory. 14:45 Condition: good Condition: improved 14:45 Discharge instructions given to patient, Patient was instructed on discharge instructions, follow up and referral plans, medication usage, safety practices, The patient demonstrated understanding of instructions, medications, Prescriptions given X 1. 14:45 Vitals are Complete in accordance with Emergency Department Policy. 14:46 Patient left the ED. jv2 Signatures: Erick Aguero PA PA tcm Vaquez, Jill, RN RN jWinsome Kauffman RN RN kal Sykes, Rebecca, RN RN ras Cordwell, Cree cc4 Corrections: (The following items were deleted from the chart) 13:11 13:10 To radiology for ED EKG Interpretation+EKG.RAD.CAN. jv2 jv2 Name Value Range Interpretation Code Description Data Ekta rce(s) Supporting Document(s) ID Date Data Source [id number] 08/25/2021 09:20:00 AM [facility] Hospital Name: ANGELIA ARTHUR : 1965 Age/Sex: 55F Ordering Provider: NGUYEN Stahl Med Rec #: [id number] Reg Status:[facility] ER Room #: Date of Service: 08/23/21 Report Number: [id number] cc: Valerie Tarango MD; NGUYEN Stahl Send Report To: Reason for exam: Chest Pain SINUS RHYTHM LOWER QRS VOLTAGE IN PRECORDIAL LEADS COMPARED WITH 04/11/21, POSSIBLY DUE TO LEAD PLACEMENT Physician Experimental Outboard Motors Mechanic: Hamilton David M.D. ECG HEART RATE: 76 /min ECG RR INTERVAL: 782 ms ECG P DURATION: 122 ms ECG QRS DURATION: 84 ms ECG PA INTERVAL: 168 ms ECG QT INTERVAL: 361 ms ECG QTC INTERVAL: 389 ms Q-T dispersion: ms ECG P AXIS: 52 deg ECG QRS AXIS: 39 deg ECG T AXIS: 39 deg REPORT SIGNATURE ON FILE 08/25/21919 Reported By: Hamilton David II, MD <<Signature on File>> Exam Date/Time: 08/23/21 1306 Order #: [id number] Dictation Date/Time: 08/25/21919 Transcribed Date/Time: 08/25/21919 Medicaid Analyst: VALDO Name Value Range Interpretation Code Description Data Ekta rce(s) Supporting Document(s) ID Date Data Source [id number] 08/23/2021 01:29:00 PM EST [facility] Name Value Range Interpretation Code Description Data Ekta rce(s) Supporting Document(s) Troponin I 0.000-0.045 Normal (applies to non-numeric resu lts) [facility] ID Date Data Source [id number] 08/23/2021 12:47:00 PM EST [facility] Name Value Range Interpretation Code Description Data Ekta rce(s) Supporting Document(s) Sodium 140 mmol/L 137-145 Normal (applies to non-numeric resul ts) [facility] Potassium 3.5-5.1 Normal (applies to non-numeric resul ts) [facility] Chloride 106 mmol/L 98-112 Normal (applies to non-numeric resul ts) [facility] Carbon Dioxide CO2 22.0-33.0 Normal (applies to non-numer ic results) [facility] Anion Gap 4.0-11.0 Normal (applies to non-numeric resul ts) [facility] BUN 12 mg/dL 7-17 Normal (applies to non-numeric resul ts) [facility] Creatinine 0.70-1.20 Below low normal [facility] GFR >60 Normal (applies to non-numeric results) [facility] Result based on MDRD formula. Glucose Level 96 mg/dL 74-99 Normal (applies to non-numeric re sults) [facility] The reference range is only applicable w hen fasting. Calcium-Uncorrected 8.4-10.2 Normal (applies to non-nume yahir results) [facility] Corrected Calcium 8.4-10.2 Normal (applies to non-numeri c results) [facility] Bilirubin,Total 0.2-1.3 Normal (applies to non-numeric results) [facility] SGOT(AST) 22 U/L 14-36 Normal (applies to non-numeric resul ts) [facility] SGPT(ALT) 35 U/L 9-52 Normal (applies to non-numeric resul ts) [facility] Alkaline Phosphatase 130 U/L 38-126 Above high normal [facility] can increase Alkaline Phosp le vels up to 2 times the normal adult value. Normal values for children and adolescents are 2 to 3 times the normal adult value. Total Protein 6.3-8.2 Normal (applies to non-numeric re sults) [facility] Albumin 3.5-5.0 Normal (applies to non-numeric resul ts) [facility] ID Date Data Source [id number] 08/23/2021 12:47:00 PM EST [facility] Name Value Range Interpretation Code Description Data Ekta rce(s) Supporting Document(s) C-Reactive Protein,Wide Range <3.00 Above high normal [facility] ID Date Data Source [id number] 08/23/2021 12:30:00 PM EST [facility] 3 hour post Lactic if elevated? Y Name Value Range Interpretation Code Description Data Ekta rce(s) Supporting Document(s) Lactic Acid 0.4-2.0 Normal (applies to non-numeric resu lts) [facility] ID Date Data Source [id number] 08/23/2021 12:29:00 PM EST [facility] Name Value Range Interpretation Code Description Data Ekta rce(s) Supporting Document(s) White Blood Count 4.8-10.8 Above high normal [facility] Red Blood Count 3.68-5.22 Normal (applies to non-numeric results) [facility] Hemoglobin 11.2-15.7 Normal (applies to non-numeric resul ts) [facility] Hematocrit 34.1-44.9 Normal (applies to non-numeric resul ts) [facility] Mean Corpuscular Volume 81-99 Normal (applies to non- numeric results) [facility] Mean Corpuscular Hemoglobin 27.0-33.0 Normal (appli es to non-numeric results) [facility] Mean Corpuscular HGB Conc 32.0-36.0 Normal (applies to no n-numeric results) [facility] Red Cell Distribution Width 11.5-14.5 Normal (appli es to non-numeric results) [facility] Platelet Count 321 X10 3/uL 130-450 Normal (applies to non-numeric results) [facility] Mean Platelet Volume 9.5-12.7 Normal (applies to non-num salome results) [facility] Imm Grans% (AUTO) 1 % 0-2 Normal (applies to non-numeri c results) [facility] Neutrophils % (AUTO) 69 % 40-75 Normal (applies to non-num salome results) [facility] Lymphocytes % (AUTO) 23 % 21-46 Normal (applies to non-num salome results) [facility] Monocytes % (AUTO) 6 % 5-12 Normal (applies to non-numer ic results) [facility] Eosinophils % (AUTO) 2 % 1-5 Normal (applies to non-num salome results) [facility] Basophils % (AUTO) 0 % 0-1 Normal (applies to non-numer ic results) [facility] Imm Grans# (AUTO) 0.0-0.5 Normal (applies to non-numeri c results) [facility] Neutrophils # (AUTO) 1.5-8.1 Above high normal [facility] Lymphocytes # (AUTO) 1.0-3.1 Normal (applies to non-num salome results) [facility] Monocytes # (AUTO) 0.2-1.3 Normal (applies to non-numer ic results) [facility] Eosinophils# (AUTO) 0.0-0.5 Normal (applies to non-nume yahir results) [facility] Basophils # (AUTO) 0.0-0.1 Normal (applies to non-numer ic results) [facility] ID Date Data Source [id number] 08/25/2021 07:55:00 AM [facility] Hospital Name: ANGELIA ARTHUR : 1965 Age/Sex: 55F Ordering Provider: NGUYEN Stahl Med Rec #: [id number] Reg Status: [facility] ER Room #: Date of Service: 08/23/21 Report Number: [id number] cc:Valerie Tarango MD Send Report To: [id number] CT/CT Neck Soft Tissue w Contrast Reason for exam: DIFFICULTY SWALLOWING, SWOLLEN SENSATION BELOW TONGUE, PAINFUL Comparison with 04/2020. FINDINGS: Multislice imaging from the skull base through the thoracic inlet after intravenous injection of contrast. The visualized brain parenchyma is unremarkable. The orbits show no intracoronalabnormality. The globes are intact. Parapharyngeal fat planes are preserved. There is no prevertebral soft tissue swelling. The parotid and submandibular glands are both unremarkable. Bulbous appearance of the thyroid gland with suggestion of nodules. Unchanged appearance. The airway is maintained. Symmetric appearance of the glottic region. The bony structures are intact. The mastoid air cells are clear. What is seen ofthe lung is also clear. No enhancing masses are clearly identifiable within the oral cavity. Dental artifact. Oropharynx and nasopharynx are both unremarkable. No evidence of a soft tissue mass below the tongue. Usual strap muscles are identified. The tongue is without obvious findings of thickening or other evidence of glossitis. Appearance is quite similar to the comparison study. No adenopathy is identified throughout the limits of the study. Small submental (level 1) lymph nodes unchanged. IMPRESSION: 1. No focal findings explaining symptoms. No sublingual findings with a stable appearance from comparison. 2. Continued presence of thyroid nodules. Unchanged appearance. While performing the above CT exam, the following dose reduction techniques wereused: *Automated exposure control *Adjustment of the mA and/or kV according to patient size *Use of iterative reconstruction technique CT Dose in mSv: 1.2204 Contrast Agent in ml: Isovue 300 90 Method of Administration: Existing IV REPORT SIGNATURE ON FILE Reported By: Speedy Arevalo MD Electronically signed by: Speedy Arevalo MD 08/25/21 1224 Dictation Date/Time: 08/23/21 1352 Transcribed Date/Time: 08/25/21 5593 Medicaid Analyst: NANCY Name Value Range Interpretation Code Description Data Ekta rce(s) Supporting Document(s) ID Date Data Source [id number] 08/07/2021 10:30:00 AM EDT [facility] Name Value Range Interpretation Code Description Data Ekta rce(s) Supporting Document(s) EGD-dil [facility] LJKFAd3eThLQEhVlQBErFxxCNNprPIhhZKPxN8Z5WRxjKa3BQZrlmzOyXGPkLh8+OIKfZS1icw4qCXLu gMy [file] Jose David/mr8aiqkKeJQAwWTOvH8lFfE3G/zDrnGZRQSrMn1jqRKzZAxdTip2lkT8o2teyHi6A9UhGfZF60oM [file] Ana Laura+wMNo3+OUQceQ+uPMej+1gUYOPo+tZS4k08/dVGbwayu+Ern8B+lYWDzFMewo0E5bXQyoK2I/scT [file] 9Rgzq74vOhwaDHHp8UulIHDOTPEeD3ioHj3rtAk3aPD+gaming department head+Z2EyaekjOFUpEdkUrM0v6+wVBVIZ+Gn1h [file] Jose [file] pouncing lathe operator/8Ywy16WYvb8ZTBPp07OZn8jGRglIqL2/yi0folx4RRZgNWNjS92440W1Ej+BdJOMOwqjLo5osCmA [file] d7SvM8EHYYNDP4JCo0LNQ6VTOBHYZUYEXJJmIxXzKP EM5zLGScIwG8QKPvOML0ITR5RYBDKuUHXlJbL3MNWhSwIqF0Oj5qYs7qnAFgMLIqPl6CjbQeBNYiDZAM Y6KuzsAqSWCyHOycIWHiEJRnOd3BLKjfWTCeEX5+AtS7liHsdS3JyDrwIYEj3IQlRUGqLRXAQA5SpWaH IZR0fCWVgPTWQ2UjJJwDSXhyXGcEqopsEMBtmwgM/M iUTOSwBplPRxAqBAA8rfKnzU5HBL4gf2FuMC7Rp0SrhwW9nfRlXSr6Uic9RhDDMkYjMJ1I ID Date Data Source [id number] 07/31/2021 09:17:00 PM EDT [facility] Name Value Range Interpretation Code Description Data Ekta rce(s) Supporting Document(s) CRP,Wide Range result <3.00 [facility] Test Performed By: [facility] [address] [place] [address] Director: Sandra Zuñiga MD ID Date Data Source [id number] 07/31/2021 05:32:00 PM EDT [facility] Name Value Range Interpretation Code Description Data Ekta rce(s) Supporting Document(s) C-Reactive Protein,Wide Range <3.00 Above high normal [facility] Test Performed By: [facility] [address] [place] [address] Director: Sandra Zuñiga MD ID Date Data Source [id number] 07/31/2021 02:34:00 PM EDT [facility] Name Value Range Interpretation Code Description Data Ekta rce(s) Supporting Document(s) Sodium 139 mmol/L 136-145 Normal (applies to non-numeric resul ts) [facility] Potassium 3.5-5.1 Normal (applies to non-numeric resul ts) [facility] Chloride 99 mmol/L 98-107 Normal (applies to non-numeric resul ts) [facility] Carbon Dioxide CO2 21-32 Normal (applies to non-numer ic results) [facility] Anion Gap 5.0-16.0 Normal (applies to non-numeric resul ts) [facility] BUN 16 mg/dL 7-18 Normal (applies to non-numeric results) [facility] Creatinine,Serum 0.7-1.2 Normal (applies to non-numeric results) [facility] GFR >60 Normal (applies to non-numeric results) [facility] Glucose Level 105 mg/dL 60-99 Above high normal [facility] Reference range is only applicable when patient is fasting Note the following drug interference: Sulfasalazine Sulfapyridine Can see falsely depressed Can see falsely elevated result with up to 17% results with up to 11% decrease in measurement increase in measurement Recommend patients be collected for this test prior to administration of either drug. Calcium 8.5-10.1 Normal (applies to non-numeric resul ts) [facility] Bilirubin,Total 0.1-1.9 Normal (applies to non-numeric results) [facility] SGOT(AST) 26 U/L 15-37 Normal (applies to non-numeric resul ts) [facility] Note the following drug interference: Sulfasalazine Sulfapyridine Can see falsely depressed Can see falsely elevated result with up to 10% results with up to 10% decrease in measurement increase in measurement Recommend patients be collected for this test prior to administration of either drug. SGPT(ALT) 38 U/L 12-78 Normal (applies to non-numeric resul ts) [facility] Note the following drug interference: Sulfasalazine Sulfapyridine Can see falsely depressed Can see falsely elevated result with up to 29% results with up to 10% decrease in measurement increase in measurement Recommend patients be collected for this test prior to administration of either drug. Alkaline Phosphatase 122 U/L 38-126 Normal (applies to non-num salome results) [facility] can increase Alkaline Phosp le vels up to 2 times the normal adult value. Normal values for children and adolescents are 2 to 3 times the normal adult value. Total Protein 6.0-8.2 Normal (applies to non-numeric re sults) [facility] Albumin Level 3.4-5.0 Normal (applies to non-numeric re sults) [facility] ID Date Data Source [id number] 07/31/2021 02:34:00 PM EDT [facility] Name Value Range Interpretation Code Description Data Ekta rce(s) Supporting Document(s) Erythrocyte Sedimentation rate 24 mm/hr 0-20 Above high maria teresa l [facility] ID Date Data Source [id number] 07/31/2021 02:34:00 PM EDT [facility] Name Value Range Interpretation Code Description Data Ekta rce(s) Supporting Document(s) White Blood Count 3.5-10.5 Above high normal [facility] Red Blood Count 3.90-5.00 Normal (applies to non-numeric results) [facility] Hemoglobin 12.0-15.5 Normal (applies to non-numeric resul ts) [facility] Hematocrit 34.9-44.5 Normal (applies to non-numeric resul ts) [facility] Mean Corpuscular Volume 81.2-95.1 Normal (applies to non- numeric results) [facility] Mean Corpuscular Hgb 25.6-32.2 Normal (applies to non-num salome results) [facility] Mean Corpuscular Hgb Conc 32.0-36.0 Normal (applies to no n-numeric results) [facility] Red Cell Distribution Width 11.9-15.5 Normal (appli es to non-numeric results) [facility] Platelet Count 303 x10 3/uL 150-450 Normal (applies to non-numeric results) [facility] Mean Platelet Volume 9.4-12.4 Normal (applies to non-num salome results) [facility] Neutrophils% (Auto) 31.0-71.0 Normal (applies to non-nume yahir results) [facility] Lymphocytes% (Auto) 20.0-55.0 Normal (applies to non-nume yahir results) [facility] Monocytes% (Auto) 4.0-12.0 Normal (applies to non-numeri c results) [facility] Eosinophils% (Auto) 1.0-8.0 Normal (applies to non-nume yahir results) [facility] Basophils% (Auto) 0.0-2.0 Normal (applies to non-numeri c results) [facility] Immature Granulocytes% (Auto) 0.0-2.0 Normal (taiwo lies to non-numeric results) [facility] Neutrophils# (Auto) 1.50-6.20 Above high normal [facility] Lymphocytes# (Auto) 1.20-4.00 Normal (applies to non-nume yahir results) [facility] Monocytes# (Auto) 0.00-0.90 Normal (applies to non-numeri c results) [facility] Eosinophils# (Auto) 0.00-0.50 Normal (applies to non-nume yahir results) [facility] Basophils# (Auto) 0.00-0.20 Normal (applies to non-numeri c results) [facility] Immature Granulocytes# (Auto) 0.00-7.00 No rmal (applies to non-numeric results) [facility] ID Date Data Source [id number] 07/31/2021 02:24:00 PM EDT [facility] Name Value Range Interpretation Code Description Data Ekta rce(s) Supporting Document(s) Triglycerides 233 mg/dL <150 Above high normal [facility] Cholesterol 198 mg/dL 100-200 Normal (applies to non-numeric resu lts) [facility] LDL Cholesterol Calculated 114 0-130 Normal (applies to n on-numeric results) [facility] HDL Cholesterol 37 mg/dL 40-60 Below low normal [facility] Cholesterol/HDL Ratio 3.6-6.7 Normal (applies to non-nu meric results) [facility] ID Date Data Source [id number] 07/31/2021 02:13:00 PM EDT [facility] Name Value Range Interpretation Code Description Data Ekta rce(s) Supporting Document(s) Hemoglobin A1c Above high normal [facility] Reference Range Normal: < 5.7% Pr ediabetes: 5.7-6.4% Diabetes: > 6.5% Estimated Avg Glucose 137 mg/dL 126-240 Normal (applies to non-numeric results) [facility] ID Date Data Source [id number] 07/16/2021 05:16:00 PM EDT [facility] Name Value Range Interpretation Code Description Data Ekta rce(s) Supporting Document(s) White Blood Count 3.5-10.5 Above high normal [facility] Red Blood Count 3.90-5.00 Normal (applies to non-numeric results) [facility] Hemoglobin 12.0-15.5 Normal (applies to non-numeric resul ts) [facility] Hematocrit 34.9-44.5 Normal (applies to non-numeric resul ts) [facility] Mean Corpuscular Volume 81.2-95.1 Normal (applies to non- numeric results) [facility] Mean Corpuscular Hgb 25.6-32.2 Normal (applies to non-num salome results) [facility] Mean Corpuscular Hgb Conc 32.0-36.0 Normal (applies to no n-numeric results) [facility] Red Cell Distribution Width 11.9-15.5 Normal (appli es to non-numeric results) [facility] Platelet Count 319 x10 3/uL 150-450 Normal (applies to non-numeric results) [facility] Mean Platelet Volume 9.4-12.4 Normal (applies to non-num salome results) [facility] Neutrophils% (Auto) 31.0-71.0 Normal (applies to non-nume yahir results) [facility] Lymphocytes% (Auto) 20.0-55.0 Normal (applies to non-nume yahir results) [facility] Monocytes% (Auto) 4.0-12.0 Normal (applies to non-numeri c results) [facility] Eosinophils% (Auto) 1.0-8.0 Normal (applies to non-nume yahir results) [facility] Basophils% (Auto) 0.0-2.0 Normal (applies to non-numeri c results) [facility] Immature Granulocytes% (Auto) 0.0-2.0 Normal (taiwo lies to non-numeric results) [facility] Neutrophils# (Auto) 1.50-6.20 Above high normal [facility] Lymphocytes# (Auto) 1.20-4.00 Above high normal [facility] Monocytes# (Auto) 0.00-0.90 Normal (applies to non-numeri c results) [facility] Eosinophils# (Auto) 0.00-0.50 Normal (applies to non-nume yahir results) [facility] Basophils# (Auto) 0.00-0.20 Normal (applies to non-numeri c results) [facility] Immature Granulocytes# (Auto) 0.00-7.00 No rmal (applies to non-numeric results) [facility] ID Date Data Source [id number] 07/08/2021 11:53:00 AM EDT [facility] TUAN Campbell BRYANTLUCY ROUTINECLINICAL HISTORY: Dysphagia. Pills getting caught proximal esophagus. 3 previous endoscopies with dilatation.COMPARISON: NoneTECHNIQUE: Overhead and fluoroscopic images were obtained after oral ingestion of barium and effervescent granules.Fluoroscopic time: 1.25 minuteFluoroscopic images: 6Overhead images: 0FINDINGS: There is mild circumferential narrowing of the pharynx at approximately C4 on each swallow. This could be related to scarring. Below this level the esophagus shows excellent distensibility and peristalsis I do not see a stricture elsewhere. There is no hiatal hernia. No obvious cricopharyngeal achalasia.IMPRESSION: Very mild circumferential narrowing in the lower pharynx or pharyngo esophageal junction seen better on the right posterior oblique images. No significant stricture. It is very high up and might be related to the patient's difficulty swallowing pills.Dictated by: SPEEDY RILEY M.D. on 1 Transcribed by: donnell on 07/08/2021 12:52 PMCDS G code: ,CDS Modifier: ,cc: Name Value Range Interpretation Code Description Data Ekta rce(s) Supporting Document(s) ID Date Data Source [id number] 07/03/2021 11:26:00 PM EDT [facility] Name Value Range Interpretation Code Description Data Ekta rce(s) Supporting Document(s) CRP,Wide Range result <3.00 [facility] Test Performed By: [facility] [address] [place] [address] Director: Sandra Zuñiga MD ID Date Data Source [id number] 07/03/2021 10:16:00 PM EDT [facility] Name Value Range Interpretation Code Description Data Ekta rce(s) Supporting Document(s) C-Reactive Protein,Wide Range <3.00 Above high normal [facility] Test Performed By: [facility] [address] [place] [address] Director: Sandra Zuñiga MD ID Date Data Source [id number] 07/03/2021 05:11:00 PM EDT [facility] Name Value Range Interpretation Code Description Data Ekta rce(s) Supporting Document(s) Sodium 140 mmol/L 136-145 Normal (applies to non-numeric resul ts) [facility] Potassium 3.5-5.1 Normal (applies to non-numeric resul ts) [facility] Chloride 100 mmol/L 98-107 Normal (applies to non-numeric resul ts) [facility] Carbon Dioxide CO2 21-32 Normal (applies to non-numer ic results) [facility] Anion Gap 5.0-16.0 Normal (applies to non-numeric resul ts) [facility] BUN 16 mg/dL 7-18 Normal (applies to non-numeric results) [facility] Creatinine,Serum 0.7-1.2 Normal (applies to non-numeric results) [facility] GFR >60 Normal (applies to non-numeric results) [facility] Glucose Level 69 mg/dL 60-99 Normal (applies to non-numeric re sults) [facility] Reference range is only applicable when patient is fasting Note the following drug interference: Sulfasalazine Sulfapyridine Can see falsely depressed Can see falsely elevated result with up to 17% results with up to 11% decrease in measurement increase in measurement Recommend patients be collected for this test prior to administration of either drug. Calcium 8.5-10.1 Normal (applies to non-numeric resul ts) [facility] Bilirubin,Total 0.1-1.9 Normal (applies to non-numeric results) [facility] SGOT(AST) 27 U/L 15-37 Normal (applies to non-numeric resul ts) [facility] Note the following drug interference: Sulfasalazine Sulfapyridine Can see falsely depressed Can see falsely elevated result with up to 10% results with up to 10% decrease in measurement increase in measurement Recommend patients be collected for this test prior to administration of either drug. SGPT(ALT) 39 U/L 12-78 Normal (applies to non-numeric resul ts) [facility] Note the following drug interference: Sulfasalazine Sulfapyridine Can see falsely depressed Can see falsely elevated result with up to 29% results with up to 10% decrease in measurement increase in measurement Recommend patients be collected for this test prior to administration of either drug. Alkaline Phosphatase 122 U/L 38-126 Normal (applies to non-num salome results) [facility] can increase Alkaline Phosp le vels up to 2 times the normal adult value. Normal values for children and adolescents are 2 to 3 times the normal adult value. Total Protein 6.0-8.2 Normal (applies to non-numeric re sults) [facility] Albumin Level 3.4-5.0 Normal (applies to non-numeric re sults) [facility] ID Date Data Source [id number] 07/03/2021 04:47:00 PM EDT [facility] Name Value Range Interpretation Code Description Data Ekta rce(s) Supporting Document(s) White Blood Count 3.5-10.5 Above high normal [facility] Red Blood Count 3.90-5.00 Normal (applies to non-numeric results) [facility] Hemoglobin 12.0-15.5 Normal (applies to non-numeric resul ts) [facility] Hematocrit 34.9-44.5 Normal (applies to non-numeric resul ts) [facility] Mean Corpuscular Volume 81.2-95.1 Normal (applies to non- numeric results) [facility] Mean Corpuscular Hgb 25.6-32.2 Normal (applies to non-num salome results) [facility] Mean Corpuscular Hgb Conc 32.0-36.0 Normal (applies to no n-numeric results) [facility] Red Cell Distribution Width 11.9-15.5 Normal (appli es to non-numeric results) [facility] Platelet Count 330 x10 3/uL 150-450 Normal (applies to non-numeric results) [facility] Mean Platelet Volume 9.4-12.4 Normal (applies to non-num salome results) [facility] Neutrophils% (Auto) 31.0-71.0 Normal (applies to non-nume yahir results) [facility] Lymphocytes% (Auto) 20.0-55.0 Normal (applies to non-nume yahir results) [facility] Monocytes% (Auto) 4.0-12.0 Normal (applies to non-numeri c results) [facility] Eosinophils% (Auto) 1.0-8.0 Normal (applies to non-nume yahir results) [facility] Basophils% (Auto) 0.0-2.0 Normal (applies to non-numeri c results) [facility] Immature Granulocytes% (Auto) 0.0-2.0 Normal (taiwo lies to non-numeric results) [facility] Neutrophils# (Auto) 1.50-6.20 Above high normal [facility] Lymphocytes# (Auto) 1.20-4.00 Normal (applies to non-nume yahir results) [facility] Monocytes# (Auto) 0.00-0.90 Normal (applies to non-numeri c results) [facility] Eosinophils# (Auto) 0.00-0.50 Normal (applies to non-nume yahir results) [facility] Basophils# (Auto) 0.00-0.20 Normal (applies to non-numeri c results) [facility] Immature Granulocytes# (Auto) 0.00-7.00 No rmal (applies to non-numeric results) [facility] ID Date Data Source [id number] 07/03/2021 04:47:00 PM EDT [facility] Name Value Range Interpretation Code Description Data Ekta rce(s) Supporting Document(s) Erythrocyte Sedimentation rate 26 mm/hr 0-20 Above high maria teresa l [facility] ID Date Data Source [id number] 07/01/2021 09:30:00 AM EDT [facility] Name Value Range Interpretation Code Description Data Ekta rce(s) Supporting Document(s) Follow Up [facility] TFBNKt9xGeGHTqNvEGQxZadIWUbrDUenWAZiM2H0RSdaPp0EXEitvzLoTZFlWf9+SDJiSQ9dup4wMRMa gMy [file] Fender Mechanic+b78zAePfqNVKFtiG5/Nolv4XpdYHFnL9+HJZFtismfUkL5mhyguT0TUsisQj0v8nZmRiuNa6aEpyS [file] 3zD+nxYY6Q/bhH0CzIF9beWbkLTGWzeyjc3cj8+IlTp2dKRR6nD43nW/8qG+senior net software developer/u3T5DYTzJ0KQ8tgt [file] gas line repairer+mktu4ZO1dANeDgMt8O8UEdm/Rawkrdo5wCgVZ3 [file] 2ShVD2FD4CscsuYmAFCkB+Juan Alberto/UTwKvLcz2TrU5ptxBYOEUEIu0lMyG2wJvxSZ2HHYUuRjn2lQFXXxlQ [file] and out cigar maker hand [file] 7cg1jWp8X0Nie6rUG56hEomyv68/YFfOwHgJ6FkMNmOAuwXuEWJpZ0k+96dcbH7pPBccfTzWCyxWQ/INSULATION WORKER [file] KouLMhbxpoq+D8UfvBxiRABiakPz/nB721VvF0vp+uGW/8EcJyd+CIyzjn7h08oKytQxyDC+imaW/senior ui ux designer [file] okhp3jfDb3m+oEc/skilled nursing+I6aPQF5f0xJoDQNyAIp8iG4MJEE2CxCWDEvy1tvoXvbLLxi+TIFQURifjbDT [file] construction site crossing guard/rF5vJnrGuZpS55LTIVpTO7+MOU8GW1yPoaWWTEbzJbzKZyovec71PCDU1LFXihjbfyb30/o5IKUv [file] nZ+eeN42efKvkJYcqOkyaD/2tCXo+oVnjIbb4P7N3A9k3L7BXDT+locomotive crane operator+7NggSNVnk3VJ779krTMKF5DH [file] estimator and drafter supervisor+HMJhIhBJqA1KOcpT232mvdEIcd2eboNX3ocZTz [file] loop puller/cIEmqFZczIILqjyW3a+0Lrx0mi8KT1kQAVNaonQ4y1TRytfopXYw/vhyg0+jcGbYCgs0ngUHBDcV [file] 9qrjVrfX+iYbqDSy69T7ackWyT/P5Ir8em9GLVfeBFD3M29+Y02wJpJd84ldSU+Pih8xhd5pYD7Q+building estimator ylOL+xkOyKYXWQVCISqBKiW3ox2X224vA+zvzSUAqV T1hI75DyxQeuoGSFtZnAK1oo8TKuUQQEXw693OM+7EX/O1iH5Nx+HmtDIL7b83y0F7BGdqE1kehOYzhA ZacsZbtWUNRnYMjUeNRYjRZjfBUMVmQ56TxJoBYc7+rxng+ex+qGKlwLNjYHDNwSxNh4eb51TXDTuypR CpzCMLpv6n5u9VfKqIir3O+kNwUjL5vjfE3v7BsNJt Fvvoh6svGtHtQLiDmm8s4Ug/knpGilXkI8oGeCglzIY63NgcxnUivINhmk/mOi9vZYivJVuaMtgawwuJ RiuRd8eC6k1apVx5Hoz07gZbb6c1u3LwluKxp5wMMVCy6xhWG5DQ7Gl9Qkh9x65gWj+J6roVdMimhLoa eyCBba6qKfPRKyOvah9Sl4uAN5CvqUyzJVKcoFRNJV c0jE5q4nF7/bwtBCR2LrNLYtHUTny5G6g6TvqCyLdNjOUJHUWdvNRAKa1FVv0xhjxTqs9MI6wEkzO3CQ tQBglGfyj2HX0bywCe63jdfv0AargQyuyFRd6QfmNSeMZwdnkljqYzSgfvzr9FOVaQZhILKWSr+vinny/T [file] M [file] VneaH1Iuz+EnWyd1sQ+Jose Guadalupe//mXBFkv/0nK+dHivvbE [file] UhxIAp0kCnU++U5ieJirRS4cZpGnHtWgNq7sXVtwfz5Vlb+0cTwaoo4KecmC1MleNt9uvydzGIUDA+SUPERVISOR GARAGE [file] prUf51oGji+6qRMm5rXR3fcIu0adVz4bG/[facility]+gej [file] 8jgVrbs2dr4YIzYijpjaSs7cQpCS543h8yoYjfbJyGhLLQD1/9Qnd2D0uNv0j7CDQ8dSdDwt/4hI/railroad baggage porter [file] +h0cHoqndyBoMQygKiWsfg+noLR5Qx0Qf9vKjzYed6oETpxKwxIhrh/Pastora+ueOIlaUgdk0cAnOfK4KHE A5huWcbXv1wDV1inMjFt8bjCEp4xdCCwrzYP+pNLZN hLR0LPBZwFe9fiEKUtrk2o/NHpmNeBMPNSm+Rz9YrFfN7ARrkSq8AxeLqwFtBxm2tW9ORAsF/VZyHF+9 bZ2F95BGYbW1HZUwYp32sl9MSvkp0KibNzw+aK+otv38shdZw9gpeGgbRcVdeUhPY1pOn1cC9ORI1rPl J/ylHs1j9zkwI7M9K5XqPtPQm1HdnN2k9kpFeUceYH KrKuHqukYLapsrDmUYkYy8EnsLlHPz2R031RudUN2XLzvOShwCx+m24Ali4f2sjdsG4xRe18dymFBB66 W8F26ape5ZjtvOaoqiJ7CmPEcuAbbU1R0cQK9j8sZ52ksP17p+Vi6CGe4z7dF4FAL2fZDtT7bq5DOb1a qwvVeWT/ggIoQUo0sj0H5YmeEaHa2E6LlRcdcyk/P6 8x1VjKs47+fmqm1CDG6IBicdcz35tX00yu3AxG/L2jXt/t1VJMpriiqmxmuDbn5ZbE8Srdf1XNi1Nvn2 M8JgjxFNVZ3yW2oJlcW0r17HCe0xK2X9j9Dy5cfXKhIz2dQn476JII9h+YuLk4oTgFqRZPdcBRVNQ4lY rHHvZzaR90BmW97jdLv5ujE0gFgdRj/car wash attendant/+7uA8S9 [file] kiln labourer++orwuCp/C+f2k+WJrHoH2v1NXhnKq9Qf43yKN4ebANR4hzeJ7U4UpguQc5aPh6JBXjNtJmEkG8Zs [file] GWtWWbzqe7RwIykVTUsU/dbeKSmbrPv+EhWU05/dtiti0xyIBypiZ+INSULATION WORKER/9Lm/r0sTufWaR6yIZVa6PNT [file] QXVTcgEcX6QfxFLJMPAkM3PUEkWNXAUQ0lAAEAKuIH EBp1DAInEgLEKQd0GCC5MMHQJSqgIZS9BjKkDd4vHr9bjIIiUZMqJq4IchYmJJIaOWFRD4AjkyRcYnSp CTndHEXnEHQgHu3OTQqmPVUlTO9+RiJ8jcGmeP6WcTqbFVWkPQLoPHCuSFVZCI3GrNroRUZPUoUcVRxE tg6WIJMrxYO0lwFYRlYPy0IQtqvvULK0EeQVmkKBbJ zGxW7sXpMujvadpIFpjpoPnHWN4eXVfNJxUoRWutNFBKrnesCjjOKyXV6WCuRhHM4tie2NCpI4CQO5gQ NcSf6SRBR1RhVdCf9DTKWUA0W= ID Date Data Source [id number] 06/21/2021 09:57:00 PM EDT [facility] Name: ANGELIA ARTHUR Med Rec #: [id number] : 1965 Age/Sex: 55F Date of Service: 06/21/21 PHYSICIAN CHART Physician Documentation [facility] Name: Angelia Arthur Age: 55 yrs Sex: Female : 1965 Arrival Date: 06/21/2021 Time: 21:57 Bed 4 Private MD: Baylee Henao ED Physician Ann Cheng HPI: 06/21 22:44 This 55 yrs old Female presents to ER via Walk-In ml with complaints of Post Surgical Pain. 22:44 55-year-old female, history of lupus, arthritis, chronic mlm1 back pain, who last week underwent a hysteroscopy and D&C comes in for postsurgical pain. The patient underwent surgery and had no complication, she was discharged home on Tylenol, the patient states she has developed right lower quadrant pain with some mild neuropathic pain crossing through her inguinal crease, the patient denies bleeding, she states that when she puts weight on her leg she has some mild pain. She wants to be sure that there is no internal problem and needs something for pain control. Patient has no fever, chills patient appears nontoxic, she was able to drive herself to the hospital, she denies vaginal bleeding, she has no bowel or bladder disorder.. 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 gabapentin 600 mg Oral tab 1 tab 3 times per day 2. losartan 100 mg Oral tab 1 tab once daily 3. Motrin 800 mg Oral tab 1 tab 3 times per day 4. omeprazole 40 mg Oral cpDR 1 cap once daily 5. remica de infusions 6. Restasis 0.05 % ophthalmic (eye) dpet 1 drop every 12 hours 7. ropinirole 1 mg Oral tab 1 tab I mg in am and in afternoon and 2 mg at bedtime 8. Vitamin B-12 Oral tab - PMHx: ARTHRITIS; CHRONIC BACK PAIN; GERD; liver failure; LUPUS; myasthenia gravis; psoriasis arthritis; pulmonary emboli ([id number]); - PSHx: Port Placement; R-hip repair; R-knee repair; spinal fusion; - Med Reconciliation:: Green Alert: The patient's med list is complete to the best of the nurse's/provider's knowledge. Medications reviewed, verbally from patient/family. - Immunization history,: All immunizations are up to date. COVID-19 vaccine: Two dose series partially complete. - Advance directive: There is no existing advanced directive. Information offered. - Family History:: mother is . Father is . - Social History: Smoking status (Tobacco): Patient states they are a former tobacco smoker, quit smoking 2017 ago. Preferred Language: Ivorian. ROS: 22:45 Constitutional: I reviewed 10 systems all which were mlm1 negative other than those mentioned in the HPI. Exam: 22:45 Constitutional: This is a well developed, well nourished mlm1 patient who is awake, alert, and in mild painful abdominal distress. Head/Face: Normocephalic, atraumatic. Eyes: Pupils equal round and reactive to light, extra-ocular motions intact. Lids and lashes normal. Conjunctiva and sclera are non-icteric and not injected. Cornea within normal limits. Periorbital areas with no swelling, redness, or edema. ENT: Nares patent. No nasal discharge, no septal abnormalities noted. Tympanic membranes are normal and external auditory canals are clear. Oropharynx with no redness, swelling, or masses, exudates, or evidence of obstruction, uvula midline. Mucous membranes moist. Chest/axilla: Normal chest wall appearance and motion. Nontender with no deformity. No lesions are appreciated. Clavicles show no deformity. Cardiovascular: Regular rate and rhythm with a normal S1 and S2. No murmurs or rubs. No noted arrthmias. No JVD. No pulse deficits. Respiratory: Lungs have clear & equal breath sounds bilaterally. No rales, rhonchi or wheezes noted. No increased work of breathing, no retractions or nasal flaring. Abdomen/GI: Soft, mildly tender in the right lower quadrant. There is ecchymosis and bruising seen overlying the area, there is no involuntary or voluntary guarding, the abdomen is enlarged with a mild pannus. Skin: Warm, dry with normal turgor. Normal color with no rashes, no lesions, and no evidence of cellulitis. MS/ Extremity: Pulses equal, no cyanosis. Neurovascular intact. Full, normal range of motion. Neuro: Awake and alert, GCS 15, oriented to person, place, time, and situation. Cranial nerves II-XII grossly intact. Motor strength 5/5 in all extremities. Sensory grossly intact. Cerebellar exam normal. Normal gait. Psych: Awake, alert, with orientation to person, place and time. Behavior, mood, and affect are within normal limits. Vital Signs: 22:03 BP 167 / 98; Pulse 104; Resp 18; Temp 98.4; Pulse Ox 97% ; jb7 Weight 113.4 kg; Height 5 ft. 3 in. (160.02 cm); Pain 4/10; 23:41 BP 128 / 68; Pulse 90; Resp 16; Pulse Ox 94% on R/A; arj 06/22 00:20 BP 120 / 59; Pulse 85; Resp 16; Pulse Ox 96% on R/A; arj 01:50 BP 146 / 76; Pulse 89; Resp 16; Pulse Ox 95% on R/A; arj 06/21 22:03 Body Mass Index 44.29 (113.40 kg, 160.02 cm) jb7 MDM: 06/21 22:25 Patient medically screened. mlm1 22:46 ED course: CT abdomen pelvis with contrast to evaluate for. mlm1 22:47 ED course: Postoperative bleeding. [facility] 06/22 01:24 ED course: Radiology has reviewed the CT abdomen and pelvis ml of note the only findings are hepatic steatosis, they see no active arterial blush to indicate active bleeding there is no evidence of intra- abdominal or intrapelvic hemorrhage. Of note there is a moderate amount of stool in the area of discomfort. I believe that this is likely postoperative pain. Will give her a short course of pain medications and magnesium citrate to help a lleviate the constipation.. 06/21 22:48 Order name: UA.; Complete Time: 23:42 mlm1 06/21 22:48 Order nam e: Ct Abdomen & Pelvis with Con mlm1 06/21 22:48 Order name: CMP; Complete Time: 00:19 mlm1 06/21 23:33 Order name: Urinalysis Auto w/Microscopy; Complete Time: EDMS 23:42 06/22 00:11 Order name: CBC with Manual Differential; Complete Time: EDMS 00:19 06/21 22:48 Order name: Collect Urine - Clean Catch; Complete Time: ml 23:38 Dispensed Medications: 06/21 23:38 Drug: ketorolac 30 mg [ketorolac 30 mg/mL (1 mL) injection arj solution (1 mL)] Route: IVP; Site: anterior chest - left; 06/22 00:00 Follow up: Response: Pain is decreased banner 06/21 23:39 Drug: HYDROmorphone 0.5 mg [hydromorphone 0.5 mg/0.5 mL arj injection syringe (0.5 mL)] Route: IVP; Site: anterior chest - left; 06/22 00:00 Follow up: Response: Pain is decreased banner 06/21 23:39 Drug: Ondansetron (PF) 4 mg [ondansetron HCl (PF) 4 mg/2 mL arj injection solution (2 mL)] Route: IVP; Infused Over: 2 mins; Site: anterior chest - left; 06/22 00:00 Follow up: Response: Nausea is decreased banner 01:47 Drug: Magnesium Citrate 300 ml [magnesium citrate oral arj solution (300 mL)] Route: PO; 01:49 Follow up: Response: Medication administered at discharge. arj Disposition Summary: 06/22/21 01:26 Discharge Ordered Location: Home/Self Care mlm1 Problem: an ongoing problem mlm1 Symptoms: are unchanged mlm1 Condition: Good mlm1 Diagnosis - Postoperative pain mlm1 - Constipation mlm1 Followup: mlm1 - With: Baylee Henao MD - When: As needed - Reason: Further diagnostic work-up, If symptoms persist Discharge Instructions: - Discharge Summary Sheet mlm1 - Constipation, Adult, Eqhv-ts-Juft mlm1 - Opioid Pain Medicine Management mlm1 Forms: - Medication Reconciliation mlm1 Prescriptions: - Percocet 5-325 mg Oral Tablet - t francisco javier 1 tablet by ORAL route every 6 hours As mlm1 needed; 12 tablet; Refills: 0, Product Selection Permitted Signatures: Dispatcher [employer] Jose J Patel RN RN jbBlanka Paz RN RN Ann Lovelace MD MD mlm1 Corrections: (The following items were deleted from the chart) 06/21 23:38 22:48 Iv Saline Lock+SHAWN ordered. mlm1 arj 06/22 00:06/21 22:49 CBC WITH AUTO DIFFERENTIAL+HEME.LAB.CAN EDMS ordered. EDMS 06/22 00:06/21 23:42 CBC WITH AUTO DIFFERENTIAL+HEME.LAB.CAN EDMS reviewed. mlm1 Name Value Range Interpretation Code Description Data Ekta rce(s) Supporting Document(s) ID Date Data Source [id number] 06/21/2021 09:57:00 PM EDT [facility] Name: ANGELIA ARTHUR [facility] Rec #: [id number] : 1965 Age/Sex: 55F Date of Service: 06/21/21 DISPOSITION SUMMARY Discharge Summary [facility] Name:Angelia Arthur Emergency Department Age:55 yrs Sex:Female :1965 Arrival:06/21/2021 21:57 Departure Date06/22/2021 Departure Time01:51 Private MD:Baylee Henao MD Outcome: Discharge Location: Home/Self Care Condition: Good Chief Complaint: Post Surgical Pain Diagnosis: - Postoperative pain, Constipation Prescriptions: Percocet 5-325 mg Oral Tablet - take 1 tablet by ORAL route every 6 hours As needed; 12 tablet Follow up: Baylee Henao MD Custom Notes: Attending Physician: Ann Cheng MD Private MD: Baylee Henao MD Mid Level Provider: Followup Physician: Baylee Henao MD Orders: UA., Cbc With Auto Differential, Ct Abdomen & Pelvis with Con, CMP, Urinalysis Auto w/Microscopy, CBC with Manual Differential, Iv Saline Lock, Collect Urine - Clean Catch, ketorolac, HYDROmorphone, Ondansetron (PF), Magnesium Citrate Discharge Instruction: Discharge Summary Sheet, Constipation, Adult, Ibod-ev-Qjis, Opioid Pain Medicine Management, Medication Reconciliation, Fax Visit Summary for Baylee Henao MD Name Value Range Interpretation Code Description Data Ekta rce(s) Supporting Document(s) ID Date Data Source [id number] 06/21/2021 09:57:00 PM EDT [facility] Name: ANGELIA ARTHUR [facility] Rec #: [id number] : 1965 Age/Sex: 55F Date of Service: 06/21/21 NURSE CHART Nurse's Notes [facility] Name: Angelia Arthur Age: 55 yrs Sex: Female : 1965 Arrival Date: 06/21/2021 Time: 21:57 Bed 4 Private MD: Baylee Henao Diagnosis: Postoperative pain;Constipation Presentation: 06/21 22:01 Transition of care: patient was not received from another [facility] setting of care. Presenting complaint: Patient states - I had a hysteroscopy/D+C on the 4th, and they removed a large cervical mass. I now have pain low in my abdomen on the right side, and into my groin, now it hurts when I put weight on my right leg. Have you travelled in the last 30 days? No. Have you had contact with an individual with a confirmed diagnosis of Ebola or COVID-19? No. 22:01 Method Of Arrival: Walk-In [facility] 22:01 Acuity: Urgent - 3 [facility] Triage Assessment: 22:03 SEPSIS SCREEN: A Confirmed or Suspected Infection is [facility] Unknown, their temperature is not <96.8 or >100.9, their heart rate is not >90, their RR is not >20, it is unknown if their WBC is <4 or >12, the patient does not have new or unexplained altered mental status. SIRS or Sepsis criteria is not present. Suicide Screening: Have you had thoughts of harming yourself or others? No, Behavioral health complaint? No. The patient appears to have no apparent distress, The patient is behaving appropriately according to age, cooperative. Patient states the pain is currently a 4 / 10 The patient reports his/her pain at its worst was 7 out of 10 on a 1-10 pain scale. Neuro: Level of Consciousness is awake, alert, Patient is oriented to person, place and time. 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 gabapentin 600 mg Oral tab 1 tab 3 times per day 2. losartan 100 mg Oral tab 1 tab once daily 3. Motrin 800 mg Oral tab 1 tab 3 times per day 4. omeprazole 40 mg Oral cpDR 1 cap once daily 5. remicade infusions 6. Restasis 0.05 % ophthalmic (eye) dpet 1 drop every 12 hours 7. ropinirole 1 mg Oral tab 1 tab I mg in am and in afternoon and 2 mg at bedtime 8. Vitamin B-12 Oral tab - PMHx: ARTHRITIS; CHRONIC BACK PAIN; GERD; liver failure; LUPUS; myasthenia gravis; psoriasis arthritis; pulmonary emboli ([id number]); - PSHx: Port Placement; R-hip repair; R-knee repair; spinal fusion; - Med Reconciliation:: Green Alert: The patient's med list is complete to the best of the nurse's/provider's knowledge. Medications reviewed, verbally from patient/family. - Immunization history,: All immunizations are up to date. COVID- 19 vaccine: Two dose series partially complete. - Advance directive: There is no existing advanced directive. Information offered. - Family History:: mother is . Father is . - Social History: Smoking status (Tobacco): Patient states they are a former tobacco smoker, quit smoking 2017 ago. Preferred Language: Ivorian. Screenin:07 AUDIT 1. How often do you have a drink containing alcohol? [facility] Never (0 points). Drug Abuse Screening Test: 1. Have you used drugs other than those required for medical reasons? No (0 points), screen is complete, no risk. Abuse screen: Denies threats or abuse. Denies injuries from another. Nutritional screening: No deficits noted. Patient has no identifiable fall risk (Abdi Scale: 0 points). Assessment: 23:30 The patient appears to have no apparent distress, to be arj uncomfortable, The patient is behaving appropriately according to age, cooperative. Derm: No deficits noted. Skin is intact, is healthy with good turgor, Skin is pink, warm & dry. 06/22 00:21 See Triage Assessment. banner Vital Signs: 06/21 22:03 BP 167 / 98; Pulse 104; Resp 18; Temp 98.4; Pulse Ox 97% ; jb7 Weight 113.4 kg; Height 5 ft. 3 in. (160.02 cm); Pain 4/10; 23:41 BP 128 / 68; Pulse 90; Resp 16; Pulse Ox 94% on R/A; ilj 06/22 00:20 BP 120 / 59; Pulse 85; Resp 16; Pulse Ox 96% on R/A; ilj 01:50 BP 146 / 76; Pulse 89; Resp 16; Pulse Ox 95% on R/A; ilj 06/21 22:03 Body Mass Index 44.29 (113.40 kg, 160.02 cm) jb7 ED Course: 06/21 21:57 Patient arrived in ED. tb6 22:01 Baylee Henao MD is Private Physician. jb7 22:02 Triage completed. jb7 22:04 Arm band placed on Patient has correct armband on for jb7 positive identification. 22:24 Blanka Rock, RN is Primary Nurse. kl1 22:25 Ann Cheng MD is Attending Physician. mlm1 23:30 No procedures ordered. Labs drawn by ED staff. was sent per arj order to lab. Urine collected. Clean catch specimen. Accessed Infusaport with 1" Pearson needle, 20 gauge, in anterior aspect of left upper chest. usuing sterile technique, per hospital protocol. Clean & dry. Dressing intact. Good blood return. 06/22 00:20 Radiology: Patient returned from CT at 00:20. arj 01:25 Baylee Henao MD is Referral Physician. mlm1 01:49 Discontinued IV lock intact, bleeding controlled, pressure arj dressing applied, No redness/swelling at site. Administered Medications: 06/21 23:38 Drug: ketorolac 30 mg [ketorolac 30 mg/mL (1 mL) injection arj solution (1 mL)] Route: IVP; Site: anterior chest - left; 06/22 00:00 Follow up: Response: Pain is decreased arj 06/21 23:39 Drug: HYDROmorphone 0.5 mg [hydromorphone 0.5 mg/0.5 mL arj injection syringe (0.5 mL)] Route: IVP; Site: anterior chest - left; 06/22 00:00 Follow up: Response: Pain is decreased arj 06/21 23:39 Drug: Ondansetron (PF) 4 mg [ondansetron HCl (PF) 4 mg/2 mL arj injection solution (2 mL)] Route: IVP; Infused Over: 2 mins; Site: anterior chest - left; 06/22 00:00 Follow up: Response: Nausea is decreased arj 01:47 Drug: Magnesium Citrate 300 ml [magnesium citrate oral arj solution (300 mL)] Route: PO; 01:49 Follow up: Response: Medication administered at discharge. arj Outcome: :26 Discharge ordered by . mlm1 01:50 Patient verbalized understanding of disposition arj instructions. Patient has no functional deficits. 01:50 Patient discharged to home ambulatory. 01:50 Condition: stable 01:50 Discharge instructions given to patient, Patient was instructed on discharge instructions, follow up and referral plans, medication usage, The patient demonstrated understanding of instructions, medications, Prescriptions given X 1. 01:50 Vitals are Complete in accordance with Emergency Department Policy. 01:51 Patient left the ED. arj Signatures: Sanjiv Baker RN RN kl1 Jose J Oliver RN RN jb7 Blanka Rock RN RN arj Morgan, Matthew, MD MD mlm1 Bessie Groves tb6 Name Value Range Interpretation Code Description Data Ekta rce(s) Supporting Document(s) ID Date Data Source [id number] 06/23/2021 03:30:00 PM EDT [facility] Name Value Range Interpretation Code Description Data Ekta rce(s) Supporting Document(s) White Blood Count 4.8-10.8 Above high normal [facility] Red Blood Count 3.68-5.22 Normal (applies to non-numeric results) [facility] Hemoglobin 11.2-15.7 Normal (applies to non-numeric resul ts) [facility] Hematocrit 34.1-44.9 Normal (applies to non-numeric resul ts) [facility] Mean Corpuscular Volume 81-99 Normal (applies to non- numeric results) [facility] Mean Corpuscular Hemoglobin 27.0-33.0 Normal (appli es to non-numeric results) [facility] Mean Corpuscular HGB Conc 32.0-36.0 Normal (applies to no n-numeric results) [facility] Red Cell Distribution Width 11.5-14.5 Normal (appli es to non-numeric results) [facility] Platelet Count 301 X10 3/uL 130-450 Normal (applies to non-numeric results) [facility] Mean Platelet Volume 9.5-12.7 Normal (applies to non-num salome results) [facility] Total Cells Counted 100 0-100 Normal (applies to non-nume yahir results) [facility] Neutrophils % (manual) 53 % 40-75 Normal (applies to non-n umeric results) [facility] Lymphocytes % (manual) 22 % 21-46 Normal (applies to non-n umeric results) [facility] Monocytes % (manual) 5 % 5-12 Normal (applies to non-num salome results) [facility] Eosinophils % (manual) 1 % 1-5 Normal (applies to non-n umeric results) [facility] Basophils % (manual) 0 % 0-1 Normal (applies to non-num salome results) [facility] Band Neutrophils% (manual) 2 % 0-5 Normal (applies to n on-numeric results) [facility] Atypical Lymph% (manual) 17 % 0-5 Above high normal [facility] Neutrophils # (Manual) 1.5-8.1 Normal (applies to non-n umeric results) [facility] Lymphocytes # (Manual) 1.0-3.1 Above high normal [facility] Monocytes # (Manual) 0.2-1.3 Normal (applies to non-num salome results) [facility] Eosinophils# (Manual) 0.0-0.5 Normal (applies to non-nu meric results) [facility] Basophils # (Manual) 0.0-0.1 Normal (applies to non-num salome results) [facility] Platelet Estimate Adequate Normal (applies to non-numeri c results) [facility] Estimate agrees with automated count Slide Reviewed By Normal (applies to non-numeri c results) [facility] Slide has been reviewed and findings con firmed by a technologist/mold repair technician. Slide reviewed by Pathologist for confirmation. 06/23/21 DR ZUÑIGA. Slide referred to Pathologist for review. ID Date Data Source [id number] 06/22/2021 12:03:00 AM EDT [facility] Name Value Range Interpretation Code Description Data Ekta rce(s) Supporting Document(s) Sodium 139 mmol/L 137-145 Normal (applies to non-numeric resul ts) [facility] Potassium 3.5-5.1 Normal (applies to non-numeric resul ts) [facility] Chloride 106 mmol/L 98-112 Normal (applies to non-numeric resul ts) [facility] Carbon Dioxide CO2 22.0-33.0 Normal (applies to non-numer ic results) [facility] Anion Gap 4.0-11.0 Normal (applies to non-numeric resul ts) [facility] BUN 18 mg/dL 7-17 Above high normal [facility] Creatinine 0.70-1.20 Below low normal [facility] GFR 90 mL/min >60 Normal (applies to non-numeric resul ts) [facility] Result based on MDRD formula. Glucose Level 139 mg/dL 74-[address] [facility] The reference range is only applicable w hen fasting. Calcium-Uncorrected 8.4-10.2 Normal (applies to non-nume yahir results) [facility] Corrected Calcium 8.4-10.2 Normal (applies to non-numeri c results) [facility] Bilirubin,Total 0.2-1.3 Normal (applies to non-numeric results) [facility] SGOT(AST) 18 U/L 14-36 Normal (applies to non-numeric resul ts) [facility] SGPT(ALT) 32 U/L 9-52 Normal (applies to non-numeric resul ts) [facility] Alkaline Phosphatase 111 U/L 38-126 Normal (applies to non-num salome results) [facility] can increase Alkaline Phosp le vels up to 2 times the normal adult value. Normal values for children and adolescents are 2 to 3 times the normal adult value. Total Protein 6.3-8.2 Normal (applies to non-numeric re sults) [facility] Albumin 3.5-5.0 Below low normal [facility] ID Date Data Source [id number] 06/21/2021 11:37:00 PM EDT [facility] Name Value Range Interpretation Code Description Data Ekta rce(s) Supporting Document(s) RBC,Auto Urine 0-2 Normal (applies to non-numeric r esults) [facility] WBC Urine Auto 0-10 Normal (applies to non-numeric r esults) [facility] Casts,Hyaline,Urine Auto 0-2 Normal (applies to non -numeric results) [facility] Bacteria Urine Auto None Seen Normal (applies to non-nume yahir results) [facility] Epithelial Cell Ur Auto None-Few Normal (applies to non- numeric results) [facility] ID Date Data Source [id number] 06/21/2021 11:37:00 PM EDT [facility] Name Value Range Interpretation Code Description Data Ekta rce(s) Supporting Document(s) Color,Urine Yellow Normal (applies to non-numeric resu lts) [facility] Clarity,Urine Clear Normal (applies to non-numeric re sults) [facility] Specific [place],Urine 1.001-1.030 Normal (applies to non- numeric results) [facility] PH,Urine 5.0-8.0 Normal (applies to non-numeric resul ts) [facility] Protein,Urine Negative [facility] Glucose,Urine (UA) Negative Normal (applies to non-numer ic results) [facility] Ketones,Urine Negative Normal (applies to non-numeric re sults) [facility] Blood,Urine Negative Normal (applies to non-numeric resu lts) [facility] Bilirubin,Urine Negative Normal (applies to non-numeric results) [facility] Urobilinogen,Urine Norm 0.2-1 Normal (applies to non-numer ic results) [facility] Leukocyte Esterase,Urine Negative Normal (applies to non -numeric results) [facility] Nitrite,Urine Negative Normal (applies to non-numeric re sults) [facility] ID Date Data Source [id number] 06/22/2021 01:22:00 AM EDT [facility] Name: ANGELIA ARTHUR : 1965 Age/Sex: 55F Ordering Provider: Ann Cheng DO Med Rec #: [id number] Reg Status: REG ER Room #: Date of Service: 06/21/21 Report Number: [id number] cc:Valerie Tarango MD; Ann Cheng DO Send Report To: CT Abdomen/Pelvis History: POST OP BLEEDING (Hx) Technique: Dose length product (mGy-cm): Not provided Reformations: MPR Contrast: With; APPLIED 100 CC ISOVUE 300 Comparison: CTSR - CT ABDOMEN PELVIS W CON - 01/10/2021 02:38 PM EDT Findings: Unremarkable aorta is noted. Findings demonstrate patent celiac artery, superior mesenteric artery, renal arteries, and inferior mesenteric artery. Findings demonstrate patent bilateral common iliac arteries. Findings demonstrate patent bilateral external and internal iliac arteries. No active arterial blush is verified. The liver demonstrates mild decrease in density. Findings are consistent with likely hepatic steatosis. There are normal appearing stomach, gallbladder, pancreas and bilateral adrenal glands. Normal appearing spleen is noted. Normal-appearing kidneys are noted. Partially decompressed bladder noted which limits evaluation. No distinct bladder stone identified. Normal appearing uterus is identified. Normal appearing ovaries are noted. The appendix is visualized and appears normal without inflammation or enlargement. The colon appear within normal limits. There is no evidence for bowel obstruction, inflammation or pneumatosis of the colon. Small bowel loops appear within normal limits There is no evidence for bowel obstruction, inflammation or pneumatosis of the small bowel. There is no evidence for pneumoperitoneum. There is no evidence for intra-abdominal loculated fluid collection or abscess. No ascites is noted. No intracranial hematoma. [place] spinal fixation device noted L5-S1 similar to previous exam. Minimal scattered groundglass opacities in the bilateral lungs likely due to minor atelectasis and air trapping.Impressions: No active arterial blush is seen to indicate active bleeding. No evidence for intra-abdominal or intrapelvic or retroperitoneal hemorrhage. Findings demonstrate likely hepatic steatosis/hepatocellular disease. Please correlate with liver function tests. Fluoroscopy time in seconds: Number of Exposures: Time Portable Image Performed: Contrast Agent in ml: Isovue 300 100 Method of Administration: Infusaport REPORT SIGNATURE ON FILE Reported By: Raffy Price MD Electronically signed by: Raffy Price MD 06/22/21121 Dictation Date/Time: 06/22/21121 Transcribed Date/Time: 06/22/21121 Medicaid Analyst: Name Value Range Interpretation Code Description Data Ekta rce(s) Supporting Document(s) ID Date Data Source [id number] 06/19/2021 01:57:00 PM EDT [facility] Name Value Range Interpretation Code Description Data Ekta rce(s) Supporting Document(s) ID Date Data Source [id number] 06/16/2021 03:00:00 PM EDT [facility] Quantity to be Transfused 2 Transfuse W hen? On Hold Until Notified Name Value Range Interpretation Code Description Data Ekta rce(s) Supporting Document(s) BLOOD TYPE PATIENT B Positive Normal (applies to non-numer ic results) [facility] ANTIBODY SCREEN NEGATIVE Normal (applies to non-numeric results) [facility] ID Date Data Source [id number] 06/13/2021 01:17:00 PM EDT [facility] Name Value Range Interpretation Code Description Data Ekta rce(s) Supporting Document(s) Beta HCG,Quantitative 2 mIU/mL 5-350327 Below low normal [facility] Non- Females (ages 18-62): 1-3 mIU/mL Adult Males (ages 19-67: Less than or equal to 1 mIU/mL Females: Gestational Age: 0-1 Week: 5-50 mIU/mL 1-2 Week: 50-500 mIU/mL 2-3 Weeks: 100-5,000 mIU/mL 3-4 Weeks: 500-10,000 mIU/mL 4-5 Weeks: 1,000- 50,000 mIU/mL 5-6 Weeks: 10,000-100,000 mIU/mL 6-8 Weeks: 15,000- 200,000 mIU/mL 2-3 Months: 10,000-100,000 mIU/mL 2nd Trimester: 3000- 54399 mIU/mL 3rd Trimester: 1000-86138 mIU/ml ID Date Data Source [id number] 06/13/2021 12:53:00 PM EDT [facility] Name Value Range Interpretation Code Description Data Ekta rce(s) Supporting Document(s) White Blood Count 4.8-10.8 Above high normal [facility] Red Blood Count 3.68-5.22 Normal (applies to non-numeric results) [facility] Hemoglobin 11.2-15.7 Normal (applies to non-numeric resul ts) [facility] Hematocrit 34.1-44.9 Normal (applies to non-numeric resul ts) [facility] Mean Corpuscular Volume 81-99 Normal (applies to non- numeric results) [facility] Mean Corpuscular Hemoglobin 27.0-33.0 Normal (appli es to non-numeric results) [facility] Mean Corpuscular HGB Conc 32.0-36.0 Normal (applies to no n-numeric results) [facility] Red Cell Distribution Width 11.5-14.5 Normal (appli es to non-numeric results) [facility] Platelet Count 303 X10 3/uL 130-450 Normal (applies to non-numeric results) [facility] Mean Platelet Volume 9.5-12.7 Below low normal [facility] ID Date Data Source [id number] 06/17/2021 04:16:00 PM EDT [facility] Name Value Range Interpretation Code Description Data Ekta rce(s) Supporting Document(s) Urine HCG-POC Negative Normal (applies to non-numeric re sults) [facility] ID Date Data Source [id number] 06/11/2021 09:00:00 AM EDT [facility] Name Value Range Interpretation Code Description Data Ekta rce(s) Supporting Document(s) Respiratory specimen severe acute respir atory syndrome coronavirus 2 (SARS-CoV-2) RNA Negative (qualifier value) [facility] This lab was ordered by [facility] mandi and reported by . ID Date Data Source [id number] 06/12/2021 07:43:00 AM EDT [facility] Name Value Range Interpretation Code Description Data Ekta rce(s) Supporting Document(s) SARS-CoV-2 RNA INHOUSE Negative Normal (applies to non-n umeric results) [facility] THIS IS A STATE REPORTABLE COMMUNICABLE DISEASE. Testing was performed using the eshtery COVID-19 MDx Assay. This test has been authorized by FDA under an (Emergency Use Authorization) EUA for use by authorized laboratories for individuals who are suspected of COVID-19 by their healthcare provider. This test is only authorized for the duration of the declaration that circumstances exist justifying the authorization of emergency use of in vitro diagnostic tests for detection and/or diagnosis of SARS-CoV-2. Methodology: Endpoint RT-PCR. Fact sheets for this EUA assay can be found at the following links: Providers: https://www.[employer].gov/media/164528/download Patients : https://www.[employer].gov/media/905459/download Negative results do not preclude SARS-CoV-2 infection and should not be used as the sole basis for patient management decisions. Negative results must be combined with clinical observations,patient history, and epidemiological information. ID Date Data Source [id number] 06/05/2021 02:16:00 PM EDT [facility] Name Value Range Interpretation Code Description Data Ekta rce(s) Supporting Document(s) Sodium 141 mmol/L 136-145 Normal (applies to non-numeric resul ts) [facility] Potassium 3.5-5.1 Normal (applies to non-numeric resul ts) [facility] Chloride 104 mmol/L 98-107 Normal (applies to non-numeric resul ts) [facility] Carbon Dioxide CO2 21-32 Normal (applies to non-numer ic results) [facility] Anion Gap 5.0-16.0 Normal (applies to non-numeric resul ts) [facility] BUN 12 mg/dL 7-18 Normal (applies to non-numeric results) [facility] Creatinine,Serum 0.7-1.2 Normal (applies to non-numeric results) [facility] GFR >60 Normal (applies to non-numeric results) [facility] Glucose Level 80 mg/dL 60-99 Normal (applies to non-numeric re sults) [facility] Reference range is only applicable when patient is fasting Note the following drug interference: Sulfasalazine Sulfapyridine Can see falsely depressed Can see falsely elevated result with up to 17% results with up to 11% decrease in measurement increase in measurement Recommend patients be collected for this test prior to administration of either drug. Calcium 8.5-10.1 Below low normal [facility] Bilirubin,Total 0.1-1.9 Normal (applies to non-numeric results) [facility] SGOT(AST) 25 U/L 15-37 Normal (applies to non-numeric resul ts) [facility] Note the following drug interference: Sulfasalazine Sulfapyridine Can see falsely depressed Can see falsely elevated result with up to 10% results with up to 10% decrease in measurement increase in measurement Recommend patients be collected for this test prior to administration of either drug. SGPT(ALT) 42 U/L 12-78 Normal (applies to non-numeric resul ts) [facility] Note the following drug interference: Sulfasalazine Sulfapyridine Can see falsely depressed Can see falsely elevated result with up to 29% results with up to 10% decrease in measurement increase in measurement Recommend patients be collected for this test prior to administration of either drug. Alkaline Phosphatase 113 U/L 38-126 Normal (applies to non-num salome results) [facility] can increase Alkaline Phosp le vels up to 2 times the normal adult value. Normal values for children and adolescents are 2 to 3 times the normal adult value. Total Protein 6.0-8.2 Normal (applies to non-numeric re sults) [facility] Albumin Level 3.4-5.0 Normal (applies to non-numeric re sults) [facility] ID Date Data Source [id number] 06/05/2021 01:38:00 PM EDT [facility] Name Value Range Interpretation Code Description Data Ekta rce(s) Supporting Document(s) Erythrocyte Sedimentation rate 25 mm/hr 0-20 Above high maria teresa l [facility] ID Date Data Source [id number] 06/05/2021 01:38:00 PM EDT [facility] Name Value Range Interpretation Code Description Data Ekta rce(s) Supporting Document(s) White Blood Count 3.5-10.5 Normal (applies to non-numeri c results) [facility] Red Blood Count 3.90-5.00 Normal (applies to non-numeric results) [facility] Hemoglobin 12.0-15.5 Normal (applies to non-numeric resul ts) [facility] Hematocrit 34.9-44.5 Normal (applies to non-numeric resul ts) [facility] Mean Corpuscular Volume 81.2-95.1 Normal (applies to non- numeric results) [facility] Mean Corpuscular Hgb 25.6-32.2 Normal (applies to non-num salome results) [facility] Mean Corpuscular Hgb Conc 32.0-36.0 Normal (applies to no n-numeric results) [facility] Red Cell Distribution Width 11.9-15.5 Normal (appli es to non-numeric results) [facility] Platelet Count 303 x10 3/uL 150-450 Normal (applies to non-numeric results) [facility] Mean Platelet Volume 9.4-12.4 Normal (applies to non-num salome results) [facility] Neutrophils% (Auto) 31.0-71.0 Normal (applies to non-nume yahir results) [facility] Lymphocytes% (Auto) 20.0-55.0 Normal (applies to non-nume yahir results) [facility] Monocytes% (Auto) 4.0-12.0 Normal (applies to non-numeri c results) [facility] Eosinophils% (Auto) 1.0-8.0 Normal (applies to non-nume yahir results) [facility] Basophils% (Auto) 0.0-2.0 Normal (applies to non-numeri c results) [facility] Immature Granulocytes% (Auto) 0.0-2.0 Normal (taiwo lies to non-numeric results) [facility] Neutrophils# (Auto) 1.50-6.20 Normal (applies to non-nume yahir results) [facility] Lymphocytes# (Auto) 1.20-4.00 Normal (applies to non-nume yahir results) [facility] Monocytes# (Auto) 0.00-0.90 Normal (applies to non-numeri c results) [facility] Eosinophils# (Auto) 0.00-0.50 Normal (applies to non-nume yahir results) [facility] Basophils# (Auto) 0.00-0.20 Normal (applies to non-numeri c results) [facility] Immature Granulocytes# (Auto) 0.00-7.00 No rmal (applies to non-numeric results) [facility] ID Date Data Source [id number] 06/05/2021 05:41:00 PM EDT [facility] Name Value Range Interpretation Code Description Data Ekta rce(s) Supporting Document(s) CRP,Wide Range result <3.00 [facility] [address] [place] [address] Director: Sandra Zuñiga MD ID Date Data Source [id number] 06/05/2021 04:38:00 PM EDT [facility] Name Value Range Interpretation Code Description Data Ekta rce(s) Supporting Document(s) C-Reactive Protein,Wide Range <3.00 Above high normal [facility] Test Performed By: [facility] [address] [place] [address] Director: Sandra Zuñiga MD ID Date Data Source [id number] 06/05/2021 06:04:00 AM EDT [facility] Hospital Name: ANGELIA ARTHUR : 1965 Age/Sex: 55F Ordering Provider: Jessica Davila MD Med Rec #: [id number] Reg Status: DEP REF Room #: Date of Service: 06/04/21 Report Number: [id number] cc:Jessica Davila MD Send Report To: [id number] MRI/MRI C Spine No Contrast Reason for exam: PARAESTHESIA FINDINGS: There is some slight loss of the normal lordotic curvature with some paraspinal muscle spasm. There are no signs of any intramedullary lesions or anyintraosseous lesions noted. The C2/3, C3/4, C4/5 disc space levels are within normal limits. At C5/6 there is broad based osteophytic spurring and disc bulging identified, resulting in some effacement to the anterior margin of the thecal sac. AP dimension of the spinal canal is 9 mm. There is also some uncovertebral spurring identified bilaterally at these levels resulting in some bilateral neuroforaminal stenosis and some effacement to the thecal sac around the exitingnerve roots at this level. The C6/7 level demonstrates broad based osteophytic spurring and disc bulging effacing the anterior margin of the thecal sac. AP dimension of the spinal canalis 8.7 mm and again noted is some bilateral uncovertebral spurring resulting in some bilateral neuroforaminal stenosis. The C7/T1 level is wit hin normal limits with some milder bilateral uncovertebralspurring resulting in some bilateral neuroforaminal stenosis. IMPRESSION: Spinal canal stenosis with bilateral neuroforaminal stenosis at theC5/6 and C6/7 levels with some bilateral neuroforaminal stenosis not quite as prominent at the C7/T1 levels. Fluoroscopy time in seconds: Number of Exposures: Time Portable Image Performed: Contrast Agent in ml: Method of Administration: REPORT SIGNATURE ON FILE Reported By: Win Restrepo MD Electronically signed by: Win Restrepo MD 06/05/21 0920 Dictation Date/Time: 06/04/21 1441 Transcribed Date/Time: 06/05/21 0604 Medicaid Analyst: MACHO Name Value Range Interpretation Code Description Data Ekta rce(s) Supporting Document(s) ID Date Data Source [id number] 05/27/2021 10:32:00 AM EDT [facility] Name Value Range Interpretation Code Description Data Ekta rce(s) Supporting Document(s) Respiratory specimen severe acute respir atory syndrome coronavirus 2 (SARS-CoV-2) RNA Negative (qualifier value) [place] [facility] This lab was ordered by [facility] and reported by . ID Date Data Source [id number] 05/29/2021 11:35:00 AM EDT [facility] Name Value Range Interpretation Code Description Data Ekta rce(s) Supporting Document(s) SARS-CoV-2 RNA INHOUSE Negative Normal (applies to non-n umeric results) [facility] THIS IS A STATE REPORTABLE COMMUNICABLE DISEASE. Testing was performed using the eshtery COVID-19 MDx Assay. This test has been authorized by FDA under an (Emergency Use Authorization) EUA for use by authorized laboratories for individuals who are suspected of COVID-19 by their healthcare provider. This test is only authorized for the duration of the declaration that circumstances exist justifying the authorization of emergency use of in vitro diagnostic tests for detection and/or diagnosis of SARS-CoV-2. Methodology: Endpoint RT-PCR. Fact sheets for this EUA assay can be found at the following links: Providers: https://www.fda.gov/media/197480/download Patients : https://www.fda.gov/media/535907/download Negative results do not preclude SARS-CoV-2 infection and should not be used as the sole basis for patient management decisions. Negative results must be combined with clinical observations,patient history, and epidemiological information. ID Date Data Source [id number] 05/06/2021 05:11:00 PM EDT [facility] Name Value Range Interpretation Code Description Data Ekta rce(s) Supporting Document(s) CRP,Wide Range result <3.00 [facility] Test Performed By: [facility] [address] [place] [address] Director: Sandra Zuñiga MD ID Date Data Source [id number] 05/06/2021 04:35:00 PM EDT [facility] Name Value Range Interpretation Code Description Data Ekta rce(s) Supporting Document(s) C-Reactive Protein,Wide Range <3.00 Above high normal [facility] Test Performed By: [facility] [address] [place] [address] Director: Sandra Zuñiga MD ID Date Data Source [id number] 05/06/2021 02:38:00 PM EDT [facility] Name Value Range Interpretation Code Description Data Ekta rce(s) Supporting Document(s) Sodium 143 mmol/L 136-145 Normal (applies to non-numeric resul ts) [facility] Potassium 3.5-5.1 Normal (applies to non-numeric resul ts) [facility] Chloride 104 mmol/L 98-107 Normal (applies to non-numeric resul ts) [facility] Carbon Dioxide CO2 21-32 Normal (applies to non-numer ic results) [facility] Anion Gap 5.0-16.0 Normal (applies to non-numeric resul ts) [facility] BUN 17 mg/dL 7-18 Normal (applies to non-numeric results) [facility] Creatinine,Serum 0.7-1.2 Below low normal [facility] GFR >60 Normal (applies to non-numeric results) [facility] Glucose Level 80 mg/dL 60-99 Normal (applies to non-numeric re sults) [facility] Reference range is only applicable when patient is fasting Note the following drug interference: Sulfasalazine Sulfapyridine Can see falsely depressed Can see falsely elevated result with up to 17% results with up to 11% decrease in measurement increase in measurement Recommend patients be collected for this test prior to administration of either drug. Calcium 8.5-10.1 Normal (applies to non-numeric resul ts) [facility] Bilirubin,Total 0.1-1.9 Normal (applies to non-numeric results) [facility] SGOT(AST) 27 U/L 15-37 Normal (applies to non-numeric resul ts) [facility] Note the following drug interference: Sulfasalazine Sulfapyridine Can see falsely depressed Can see falsely elevated result with up to 10% results with up to 10% decrease in measurement increase in measurement Recommend patients be collected for this test prior to administration of either drug. SGPT(ALT) 46 U/L 12-78 Normal (applies to non-numeric resul ts) [facility] Note the following drug interference: Sulfasalazine Sulfapyridine Can see falsely depressed Can see falsely elevated result with up to 29% results with up to 10% decrease in measurement increase in measurement Recommend patients be collected for this test prior to administration of either drug. Alkaline Phosphatase 110 U/L 38-126 Normal (applies to non-num salome results) [facility] can increase Alkaline Phosp le vels up to 2 times the normal adult value. Normal values for children and adolescents are 2 to 3 times the normal adult value. Total Protein 6.0-8.2 Normal (applies to non-numeric re sults) [facility] Albumin Level 3.4-5.0 Normal (applies to non-numeric re sults) [facility] ID Date Data Source [id number] 05/06/2021 02:01:00 PM EDT [facility] Name Value Range Interpretation Code Description Data Ekta rce(s) Supporting Document(s) White Blood Count 3.5-10.5 Normal (applies to non-numeri c results) [facility] Red Blood Count 3.90-5.00 Normal (applies to non-numeric results) [facility] Hemoglobin 12.0-15.5 Normal (applies to non-numeric resul ts) [facility] Hematocrit 34.9-44.5 Normal (applies to non-numeric resul ts) [facility] Mean Corpuscular Volume 81.2-95.1 Normal (applies to non- numeric results) [facility] Mean Corpuscular Hgb 25.6-32.2 Normal (applies to non-num salome results) [facility] Mean Corpuscular Hgb Conc 32.0-36.0 Normal (applies to no n-numeric results) [facility] Red Cell Distribution Width 11.9-15.5 Normal (appli es to non-numeric results) [facility] Platelet Count 279 x10 3/uL 150-450 Normal (applies to non-numeric results) [facility] Mean Platelet Volume 9.4-12.4 Normal (applies to non-num salome results) [facility] Neutrophils% (Auto) 31.0-71.0 Normal (applies to non-nume yahir results) [facility] Lymphocytes% (Auto) 20.0-55.0 Normal (applies to non-nume yahir results) [facility] Monocytes% (Auto) 4.0-12.0 Normal (applies to non-numeri c results) [facility] Eosinophils% (Auto) 1.0-8.0 Normal (applies to non-nume yahir results) [facility] Basophils% (Auto) 0.0-2.0 Normal (applies to non-numeri c results) [facility] Immature Granulocytes% (Auto) 0.0-2.0 Normal (taiwo lies to non-numeric results) [facility] Neutrophils# (Auto) 1.50-6.20 Normal (applies to non-nume yahir results) [facility] Lymphocytes# (Auto) 1.20-4.00 Normal (applies to non-nume yahir results) [facility] Monocytes# (Auto) 0.00-0.90 Normal (applies to non-numeri c results) [facility] Eosinophils# (Auto) 0.00-0.50 Normal (applies to non-nume yahir results) [facility] Basophils# (Auto) 0.00-0.20 Normal (applies to non-numeri c results) [facility] Immature Granulocytes# (Auto) 0.00-7.00 No rmal (applies to non-numeric results) [facility] ID Date Data Source [id number] 05/06/2021 02:01:00 PM EDT [facility] Name Value Range Interpretation Code Description Data Ekta rce(s) Supporting Document(s) Erythrocyte Sedimentation rate 20 mm/hr 0-20 N ormal (applies to non-numeric results) [facility] ID Date Data Source [id number] 05/06/2021 12:03:00 PM EDT [facility] Imaging Services Department Imaging Report [address] [place] [address] Name: ANGELIA ARTHUR : 1965 Age/Sex: 55F Ordering Provider: [place] Gold [facility] Rec #: [id number] Date of Service: 05/05/21 Report Number: [id number] cc: Valerie Tarango MD; [place] Gold Send Report To: [id number] MAMMOSCR/Screening Digtl Pura w Jim CAD Reason for Exam: SCREENING Patient States Last CBE: 04-15-21 Is this a follow up exam: Follow up to: Patient's Libby Model Lifetime risk of developing breast cancer: 15.4% Comparison: 09-05-19. FINDINGS: Craniocaudad and oblique lateral views of the breasts were obtained and combined with 3D Tomosynthesis views in the same projections. The breasts are primarily of fat density. There is no dominant mass, suspicious clustered microcalcification, nor architectural distortion. IMPRESSION: NO MAMMOGRAPHIC EVIDENCE OF MALIGNANCY. YEARLY SCREENING RECOMMENDED. This pura mogram was performed digitally and interpreted with the aid of ICAD, an FDA- approved, computer-aided detection system. OVERALL FINAL ASSESSMENT OF BREAST COMPOSITION: BIRADS CLASSIFICATION: A DESCRIPTION: The breast(s) are almost entirely fatty. OVERALL FINAL ASSESSMENT OF FINDINGS: BIRADS CLASSIFICATION: 2 DESCRIPTION: BENIGN. REPORT SIGNATURE ON FILE 05/06/21 3530 Reported By: Win Restrepo MD <Electronically signed by Patrick Restrepo MD>05/06/21 1209 Dictation Date/Time: 05/05/21 1027 Transcribed Date/Time: 05/06/21 1203 Medicaid Analyst: MACHO Name Value Range Interpretation Code Description Data Ekta rce(s) Supporting Document(s) ID Date Data Source [id number] 05/06/2021 11:00:00 AM [facility] Imaging Services Department Imaging Report [address], [place] [address] %(RAD)RES..mtdd.print.filter("line") Name: ANGELIA ARTHUR : 1965 Age/Sex: 55F Ordering Provider: [place] Gold Med Rec #: [id number] Reg Status: DEP REF Room #: Date of Service: 05/05/21 Report Number: [id number] cc:Valerie Tarango MD; [place] Gold Send Report To: [id number] US/US Transvaginal Reason for exam: PMB FINDINGS: The uterus measures 7.2 x 3.9 x 4.9 cm. Endometrium measures 4 mm. Right ovary measures 1.0 x 1.0 x 1.0 cm. Left ovary measures 1.5 x 1.2 x 1.3 cm. No free fluid. No signs of any adnexal masses identified. There is normalflow to the ovaries. IMPRESSION: 4-MM ENDOMETRIAL STRIPE. NO SIGNS OF ANY SIGNIFICANT PATHOLOGY OTHERWISE IDENTIFIED. REPORT SIGNATURE ON FILE Reported By: Win Restrepo MD <Electronically signed by Patrick Restrepo MD> 05/06/21 1118 Dictation Date/Time: 05/05/21 0942 Transcribed Date/Time: 05/06/21 1100 Medicaid Analyst: RICARDO Name Value Range Interpretation Code Description Data Ekta rce(s) Supporting Document(s) ID Date Data Source [id number] 05/07/2021 10:06:00 AM [facility] Name Value Range Interpretation Code Description Data Ekta rce(s) Supporting Document(s) FibroTest Score Normal (applies to non-numeric results) [facility] FibroTest Stage Normal (applies to non-numeric results) [facility] FibroTest Interpretation Normal (applies to non -numeric results) [facility] FibroTest estimates liver fibrosis Fibr oTest Score Stage Interpretation 0.00-0.21 F0 no fibrosis 0.21-0.27 F0-F1 no fibrosis 0.27-0.31 F1 minimal fibrosis 0.31-0.48 F1-F2 minimal fibrosis 0.48-0.58 F2 moderate fibrosis 0.58-0.72 F3 advanced fibrosis 0.72-0.74 F3-F4 advanced fibrosis 0.74-1.00 F4 severe fibrosis (Cirrhosis) NashTest 2 Score Normal (applies to non-numeric results) [facility] NashTest 2 Grade Normal (applies to non-numeric results) [facility] NashTest 2 Interpretation Normal (applies to no n-numeric results) [facility] NashTest 2 estimates non-alcoholic steat ohepatitis (KARIMI) NashTest 2 Score Grade Interpretation 0.00-0.25 N0 no KARIMI 0.25-0.50 N1 mild KARIMI 0.50-0.75 N2 moderate KARIMI 0.75-1.00 N3 severe KARIMI SteatoTest 2 Score Normal (applies to non-numer ic results) [facility] SteatoTest 2 Grade Normal (applies to non-numer ic results) [facility] SteatoTest 2 Interpretation Normal (applies to non-numeric results) [facility] RESULT: moderate/severe steatosis (34-10 0%) SteatoTest 2 estimates liver steatosis. A stage of S1 or S2S3 is considered clinically significant. SteatoTest 2 Score Stage Interpretation 0.00-0.40 S0 no steatosis (<5%) 0.40-0.55 S1 mild steatosis (5-33%) 0.55-1.00 S2S3 moderate/severe steatosis (34-100%) KARIMI-FibroTest Comment Normal (applies to non-n umeric results) [facility] The reliability of results is dependent on compliance with the preanalytical and analytical conditions recommended by [facility]. The tests have to be deferred for: acute hemolysis, acute hepatitis, acute inflammation, extra hepatic cholestasis. The advice of a specialist should be sought for interpretation in chronic hemolysis and Gilbert's syndrome. The test interpretation is not validated in liver transplant patients. Isolated extreme values of one of the components should lead to caution in interpreting the results. In case of discordance between a biopsy result and a test, it is r ecommended to seek advice of a specialist. The causes of these discordances could be due to a flaw of the test or to a flaw in the biopsy: i.e. a liver biopsy has a 33% variability rate for one fibrosis stage. FibroTest is interpretable for chronic hepatitis B and C, alcoholic and non alcoholic steatosis. SteatoTest 2 is interpretable for chronic hepatitis B and C, and non alcoholic steatosis. NashTest 2 is interpretable for assessing the severity of KARIMI in patients with non alcoholic fatty liver disease (NAFLD). ADDITIONAL INFORMATION This test was developed and its performance characteristics determined by [facility] in a manner consistent with CLIA requirements. This test has not been cleared or approved by the U.S. Food and Drug Administration. [facility] Serial Number [id number] Normal (appli es to non-numeric results) [facility] Apolipoprotein A1,S 135 mg/dL >=140 Very abnormal (applie s to non-numeric units [facility] Npcry-1-Cpvedkfritklo,S 184 mg/dL 100 - 280 Normal ( applies to non-numeric results) [facility] Haptoglobin,S 205 mg/dL 30 - 200 Very abnormal (applies to non-num salome units [facility] Alanine Amino (ALT),S 38 U/L 7-45 Normal (applies to non-nu meric results) [facility] Gamma Glutamyltrans (GGT),S 60 U/L 5 - 36 Very abnormal (applies to non-numeric units [facility] Total Bilirubin,S <=1.2 Normal (applies to non-numeri c results) [facility] Aspartate Aminotrans (AST),S 29 U/L 8 - 43 Nor mal (applies to non-numeric results) [facility] Total Cholesterol,S 226 mg/dL Very abnormal (applies to n on-numeric units [facility] REFERENCE VALUE------ Desirable: < 200 Borderline high: 200 - 239 High: > or = 240 Triglycerides,S 169 mg/dL Very abnormal (applies to non-n umeric units [facility] REFERENCE VALUE------ Normal: <150 Borderline high: 150-199 High: 200-499 Very high: > or =500 Fasting Glucose,Plas 120 mg/dL 70 - 100 Very abnorm al (applies to non-numeric units [facility] Test Performed by: [facility] [place] [facility] [id number] [employer] Driver: Willi Rendon M.D. Ph.D.; CLIA# [id number] Test Performed by: [facility] [address] [place] [address] [employer] Driver: Willi Rendon M.D. Ph.D.; CLIA# [id number] ID Date Data Source [id number] 05/07/2021 09:50:00 AM EDT [facility] Name Value Range Interpretation Code Description Data Ekta rce(s) Supporting Document(s) FibroTest Score Normal (applies to non-numeric results) [facility] FibroTest Stage Normal (applies to non-numeric results) [facility] FibroTest Interpretation Normal (applies to non -numeric results) [facility] FibroTest estimates liver fibrosis Fibr oTest Score Stage Interpretation 0.00-0.21 F0 no fibrosis 0.21-0.27 F0-F1 no fibrosis 0.27-0.31 F1 minimal fibrosis 0.31-0.48 F1-F2 minimal fibrosis 0.48-0.58 F2 moderate fibrosis 0.58-0.72 F3 advanced fibrosis 0.72-0.74 F3-F4 advanced fibrosis 0.74-1.00 F4 severe fibrosis (Cirrhosis) NashTest 2 Score Normal (applies to non-numeric results) [facility] NashTest 2 Grade Normal (applies to non-numeric results) [facility] NashTest 2 Interpretation Normal (applies to no n-numeric results) [facility] NashTest 2 estimates non-alcoholic steat ohepatitis (KARIMI) NashTest 2 Score Grade Interpretation 0.00-0.25 N0 no KARIMI 0.25-0.50 N1 mild KARIMI 0.50-0.75 N2 moderate KARIMI 0.75-1.00 N3 severe KARIMI SteatoTest 2 Score Normal (applies to non-numer ic results) [facility] SteatoTest 2 Grade Normal (applies to non-numer ic results) [facility] SteatoTest 2 Interpretation Normal (applies to non-numeric results) [facility] RESULT: moderate/severe steatosis (34-10 0%) SteatoTest 2 estimates liver steatosis. A stage of S1 or S2S3 is considered clinically significant. [facility]atoTest 2 Score Stage Interpretation 0.00-0.40 S0 no steatosis (<5%) 0.40-0.55 S1 mild steatosis (5-33%) 0.55-1.00 S2S3 moderate/severe steatosis (34-100%) KARIMI-FibroTest Comment Normal (applies to non-n umeric results) [facility] The reliability of results is dependent on compliance with the preanalytical and analytical conditions recommended by [employer]. The tests have to be deferred for: acute hemolysis, acute hepatitis, acute inflammation, extra hepatic cholestasis. The advice of a specialist should be sought for interpretation in chronic hemolysis and Gilbert's syndrome. The test interpretation is not validated in liver transplant patients. Isolated extreme values of one of the components should lead to caution in interpreting the results. In case of discordance between a biopsy result and a test, it is r ecommended to seek advice of a specialist. The causes of these discordances could be due to a flaw of the test or to a flaw in the biopsy: i.e. a liver biopsy has a 33% variability rate for one fibrosis stage. FibroTest is interpretable for chronic hepatitis B and C, alcoholic and non alcoholic steatosis. SteatoTest 2 is interpretable for chronic hepatitis B and C, and non alcoholic steatosis. NashTest 2 is interpretable for assessing the severity of KARIMI in patients with non alcoholic fatty liver disease (NAFLD). ADDITIONAL INFORMATION This test was developed and its performance characteristics determined by [facility] in a manner consistent with CLIA requirements. This test has not been cleared or approved by the U.S. Food and Drug Administration. [facility] Serial Number [id number] Normal (appli es to non-numeric results) [facility] Apolipoprotein A1,S 135 mg/dL >=140 [facility] Bprci-6-Ocmmbjqketczj,S 184 mg/dL 100 - 280 Normal ( applies to non-numeric results) [facility] Haptoglobin,S 205 mg/dL 30 - 200 [facility] ospital Alanine Amino (ALT),S 38 U/L 7-45 Normal (applies to non-nu meric results) [facility] Gamma Glutamyltrans (GGT),S 60 U/L 5 - 36 [facility] Total Bilirubin,S <=1.2 Normal (applies to non-numeri c results) [facility] Aspartate Aminotrans (AST),S 29 U/L 8 - 43 Nor mal (applies to non-numeric results) [facility] Total Cholesterol,S 226 mg/dL [facility] REFERENCE VALUE------ Desirable: < 200 Borderline high: 200 - 239 High: > or = 240 Triglycerides,S 169 mg/dL [facility] REFERENCE VALUE------ Normal: <150 Borderline high: 150-199 High: 200-499 Very high: > or =500 Fasting Glucose,Plas 120 mg/dL 70 - 100 [facility] Test Performed by: [place] [address] Team [employer]tr Truck Driver: Willi Rendon M.D. Ph.D.; CLIA# [id number] Test Performed by: [facility] [address] [place] [address] Team [employer] Driver: Willi Rendon M.D. Ph.D.; CLIA# [id number] ID Date Data Source [id number] 05/05/2021 05:00:00 PM EDT [facility] Name Value Range Interpretation Code Description Data Ekta rce(s) Supporting Document(s) Bilirubin,Total 0.1-1.9 Normal (applies to non-numeric results) [facility] Bilirubin,Direct 0.05-0.20 Normal (applies to non-numeric results) [facility] SGOT(AST) 27 U/L 15-37 Normal (applies to non-numeric resul ts) [facility] Note the following drug interference: Sulfasalazine Sulfapyridine Can see falsely depressed Can see falsely elevated result with up to 10% results with up to 10% decrease in measurement increase in measurement Recommend patients be collected for this test prior to administration of either drug. SGPT(ALT) 49 U/L 12-78 Normal (applies to non-numeric resul ts) [facility] Note the following drug interference: Sulfasalazine Sulfapyridine Can see falsely depressed Can see falsely elevated result with up to 29% results with up to 10% decrease in measurement increase in measurement Recommend patients be collected for this test prior to administration of either drug. Alkaline Phosphatase 103 U/L 38-126 Normal (applies to non-num salome results) [facility] can increase Alkaline Phosp le vels up to 2 times the normal adult value. Normal values for children and adolescents are 2 to 3 times the normal adult value. Total Protein 6.0-8.2 Normal (applies to non-numeric re sults) [facility] Albumin Level 3.4-5.0 Normal (applies to non-numeric re sults) [facility] ID Date Data Source [id number] 04/22/2021 05:47:00 PM EDT [facility] Name Value Range Interpretation Code Description Data Ekta rce(s) Supporting Document(s) Iron FE Level 61 ug/dL 37-170 Normal (applies to non-numeric re sults) [facility] Total Iron Binding Capacity 365 ug/dL 265-497 Norm al (applies to non-numeric results) [facility] %Iron Saturation 12.0-55.0 Normal (applies to non-numeric results) [facility] ID Date Data Source [id number] 04/22/2021 03:49:00 PM EDT [facility] Name Value Range Interpretation Code Description Data Ekta rce(s) Supporting Document(s) White Blood Count 4.8-10.8 Above high normal [facility] Red Blood Count 3.68-5.22 Normal (applies to non-numeric results) [facility] Hemoglobin 11.2-15.7 Normal (applies to non-numeric resul ts) [facility] Hematocrit 34.1-44.9 Normal (applies to non-numeric resul ts) [facility] Mean Corpuscular Volume 81-99 Normal (applies to non- numeric results) [facility] Mean Corpuscular Hemoglobin 27.0-33.0 Normal (appli es to non-numeric results) [facility] Mean Corpuscular HGB Conc 32.0-36.0 Normal (applies to no n-numeric results) [facility] Red Cell Distribution Width 11.5-14.5 Normal (appli es to non-numeric results) [facility] Platelet Count 303 X10 3/uL 130-450 Normal (applies to non-numeric results) [facility] Mean Platelet Volume 9.5-12.7 Normal (applies to non-num salome results) [facility] Imm Grans% (AUTO) 1 % 0-2 Normal (applies to non-numeri c results) [facility] Neutrophils % (AUTO) 65 % 40-75 Normal (applies to non-num salome results) [facility] Lymphocytes % (AUTO) 25 % 21-46 Normal (applies to non-num salome results) [facility] Monocytes % (AUTO) 7 % 5-12 Normal (applies to non-numer ic results) [facility] Eosinophils % (AUTO) 2 % 1-5 Normal (applies to non-num salome results) [facility] Basophils % (AUTO) 0 % 0-1 Normal (applies to non-numer ic results) [facility] Imm Grans# (AUTO) 0.0-0.5 Normal (applies to non-numeri c results) [facility] Neutrophils # (AUTO) 1.5-8.1 Normal (applies to non-num salome results) [facility] Lymphocytes # (AUTO) 1.0-3.1 Normal (applies to non-num salome results) [facility] Monocytes # (AUTO) 0.2-1.3 Normal (applies to non-numer ic results) [facility] Eosinophils# (AUTO) 0.0-0.5 Normal (applies to non-nume yahir results) [facility] Basophils # (AUTO) 0.0-0.1 Normal (applies to non-numer ic results) [facility] ID Date Data Source [id number] 04/22/2021 01:15:00 PM EDT [facility] Name Value Range Interpretation Code Description Data Ekta rce(s) Supporting Document(s) Respiratory specimen severe acute respir atory syndrome coronavirus 2 (SARS-CoV-2) RNA Negative (qualifier value) [facility] This lab was ordered by [facility] layne and reported by [facility]. ID Date Data Source [id number] 04/23/2021 01:50:00 AM EDT [facility] COVID-19 Specimen Source NASOPHARYNGEAL Testing was performed using the [employer] SARS-CoV-2 Assay (Healcerion) Methodology: Nucleic Acid Amplification Heater Room Helper RT-PCR Mediated Amplification (TMA) and Dual Kinetic Assay (DKA) Negative results do not preclude SARS-CoV-2 infection and should not be used as the sole basis for patient management decisions. Negative results must be combined with clinical observations, patient history, and epidemiological information. This test has been authorized by FDA under an (Emergency Use Authorization) EUA for use by authorized laboratories for individuals who are suspected of COVID-19 by their healthcare provider. This test is only authorized for the duration of the declaration that circumstances exist justifying the authorization of emergency use of in vitro diagnostic tests for detection and/or diagnosis of SARS-CoV-2. Fact sheets for this EUA assay can be found at the following links EUA Fact Sheet for Providers: https://www.fda.gov/media/136532/download EUA Fact Sheet for Patients: https://www.fda.gov/media/802056/download THIS IS A STATE REPORTABLE COMMUNICABLE DISEASE. Test Performed By: [facility] [address] [place] [address] Director: Sandra Zuñiga MD Name Value Range Interpretation Code Description Data Ekta rce(s) Supporting Document(s) ID Date Data Source [id number] 04/24/2021 08:42:00 AM EDT [facility] No Group A beta hemolytic streptococcus at 24 hours. Pre-report pending 48 hour incubation. Name Value Range Interpretation Code Description Data Ekta rce(s) Supporting Document(s) Group A Culture [facility] ID Date Data Source [id number] 04/22/2021 12:46:00 PM EDT [facility] BROADCAST TECHNICIAN TEST TO BE ORDERED: PAP and HPV (HR )LAST MENSTRUAL PERIOD 2017SOURCE OF SPECIMEN Endo/ExocxCLINICAL FINDINGS normal examOTHER FINDINGS (free text) cervical polypCLINICAL DIAGNOSIS Screening, low risk (cx) Name Value Range Interpretation Code Description Data Ekta rce(s) Supporting Document(s) Cytology Order BROADCAST TECHNICIAN Pap result LAB SendOut No rmal (applies to non-numeric results) [facility] ID Date Data Source [id number] 04/19/2021 02:52:00 AM EDT [facility] Name Value Range Interpretation Code Description Data Ekta rce(s) Supporting Document(s) HPV Detection,High Risk result Negative N ormal (applies to non-numeric results) [facility] Test Performed By: [facility] [address] [place] [address] Director: Sandra Zuñiga MD . No E6 or E7 mRNA is detected from HPV types 16,18,31,33,35,39,45,51,52,56,58,59,66, and 68 by nucleic acid amplification. ID Date Data Source [id number] 04/18/2021 04:38:00 PM EDT [facility] Name Value Range Interpretation Code Description Data Ekta rce(s) Supporting Document(s) HPV Detection,High Risk Types Negative No rmal (applies to non-numeric results) [facility] Test Performed By: [facility] [address] [place] [address] Director: Sandra Zuñiga MD . No E6 or E7 mRNA is detected from HPV types 16,18,31,33,35,39,45,51,52,56,58,59,66, and 68 by nucleic acid amplification. ID Date Data Source [id number] 04/22/2021 12:25:00 PM EDT [facility] <Findings Not Available> Name Value Range Interpretation Code Description Data Ekta rce(s) Supporting Document(s) ID Date Data Source [id number] 04/11/2021 01:23:00 PM EDT [facility] Name: ANGELIA ARTHUR [facility] Rec #: [id number] : 1965 Age/Sex: 55F Date of Service: 04/11/21 DISPOSITION SUMMARY Discharge Summary [facility] Name:Angelia Arthur Emergency Department Age:55 yrs Sex:Female :1965 Arrival:04/11/2021 13:23 Departure Date04/11/2021 Departure Time15:56 Private MD:Valerie Tarango MD Outcome: Discharge Location: Home/Self Care Condition: Good Chief Complaint: Abdominal Pain Diagnosis: Epigastric pain Prescriptions: Protonix 40 mg Oral tablet,delayed release (DR/EC) - take 1 tablet by ORAL route 2 times per day; 40 tablet Follow up: Valerie Tarango MD Custom Notes: Attending Physician: Eros Oakley MD Private MD: Valerie Tarango MD Mid Level Provider: Followup Physician: Valerie Tarango MD Orders: CRP - Wide Range, Cbc With Auto Differential, Comprehensive Metabolic Prof., Lipase, UA., Troponin I, Onda nsetron (PF), ketorolac, Us Gall Bladder Study, Emergency Room EKG Order - Use EKG Work-Up /Quick Select, Cardiology EKG Interpretation - Choose Reason for Test, NS 0.9%, Protonix, Miscellaneous Medication - Non Formulary, Collect Urine - Clean Catch, Iv Saline Lock, NPO Discharge Instruction: Discharge Summary Sheet, Abdominal Pain, Adult, Medication Reconciliation Name Value Range Interpretation Code Description Data Ekta rce(s) Supporting Document(s) ID Date Data Source [id number] [facility] Med Rec #: [id number] : 1965 Age/Sex: 55F Date of Service: 04/11/21 PHYSICIAN CHART Physician Documentation [facility] Name: Angelia Arthur Age: 55 yrs Sex: Female : 1965 Arrival Date: 04/11/2021 Time: 13:23 Bed 9 Private MD: Valerie Tarango L ED Physician Eros Oakley HPI: 04/11 14:05 This 55 yrs old Female presents to ER via Walk-In jdl with complaints of Abdominal Pain. 14:05 This is a 55-year-old female with past medical jdl history of medication induced liver failure, psoriatic arthritis, lupus, chronic back pain, myasthenia gravis, who presents to the emergency department chief complaint of dizziness, lightheadedness, and abdominal pain. The patient states that she was recently treated for UTI and discontinue the antibiotics approximately 5 days ago. She noticed 2 days ago that she was getting lightheaded and dizzy as if she may pass out. She additionally had some dysuria 2 days ago, however the dysuria resolved yesterday and today. Today she is starting to complain of pain in the epigastric region and right upper quadrant that radiates up into her chest. She describes this pain is severe, burning sensation. She believes that the pain may be due to taking large amounts of ibuprofen due to having an arthritis flare in her right hip. Her current pain level in her abdomen is an 8 out of 10. She is having nausea associated with this but is denying any diarrhea or vomiting.. Historical: - Allergies: Azulfidine; Reglan; Soliris; Stelara; SULFA (SULFONAMIDES); - Home Meds: 1. gabapentin 600 mg Oral tab 1 tab 3 times per day 2. losartan 100 mg Oral tab 1 tab once daily 3. Motrin 800 mg Oral tab 1 tab 3 times per day 4. omeprazole 40 mg Oral cpDR 1 cap once daily 5. remicade infusions 6. Restasis 0.05 % ophthalmic (eye) dpet 1 drop every 12 hours 7. ropinirole 1 mg Oral tab 1 tab I mg in am and in afternoon and 2 mg at bedtime 8. Vitamin B-12 Oral tab - PMHx: ARTHRITIS; CHRONIC BACK PAIN; GERD; liver failure; LUPUS; myasthenia gravis; psoriasis arthritis; pulmonary emboli ([id number]); - PSHx: Port Placement; R-hip repair; R-knee repair; spinal fusion; - Med Reconciliation:: Green Alert: The patient's med list is complete to the best of the nurse's/provider's knowledge. Medications reviewed, verbally from patient/family. - Social History: Smoking status (Tobacco): Patient states they are a former tobacco smoker, quit smoking 4 years ago. No barriers to communication noted, The patient speaks fluent Ivorian. ROS: 14:07 Eyes: Negative for injury, pain, redness, and discharge j ENT: Negative for injury, pain, and discharge, Neck: Negative for injury, pain, and swelling, Cardiovascular: Negative for chest pains or palpitations. Respiratory: Negative for shortness of breath, cough, wheezing, and pleuritic chest pain. MS/Extremity: negative for injury or deformity Skin: Negative for injury, rash, and discoloration. Constitutional: Positive for malaise, fatigue, Negative for fever, chills. Abdomen/GI: See HPI. Back: Positive for Phonic pain. : See HPI. Neuro: See HPI. Exam: 14:07 Constitutional: This is a well developed, well nourished j patient who is awake, alert, and in no acute distress Eyes: Pupils equal round and reactive to light, extra-ocular motions intact. Lids and lashes normal. Conjunctiva and sclera are non-icteric and not injected. Cornea within normal limits. Periorbital areas with no swelling, redness, or edema. ENT: Nares patent. No nasal discharge. Tympanic membranes are normal and external auditory canals are clear. Oropharynx with no redness, swelling, or masses. Mucous membranes moist. Neck: Trachea midline, no thyromegaly or masses palpated, and no cervical lymphadenopathy. Supple, full range of motion without nuchal rigidity, or vertebral point tenderness. No Meningismus. Chest/axilla: normal inspection, no deformities or tenderness. Cardiovascular: Regular rate and rhythm with a normal S1 and S2. No gallops, murmurs, or rubs. Normal PMI, no JVD. Respiratory: Lungs have equal breath sounds bilaterally, clear to auscultation and percussion. No rales, rhonchi or wheezes noted. No increased work of breathing. Back: No spinal tenderness. No costovertebral tenderness. Skin: Warm, dry with normal turgor. Normal color with no rashes, no lesions, and no evidence of cellulitis. MS/ Extremity: Pulses equal, no cyanosis. Neurovascular intact. Full, normal range of motion. 14:07 Abdomen/GI: Inspection: abdomen appears normal, Bowel sounds: normal, Palpation: soft, moderate abdominal tenderness, in the right upper quadrant. Vital Signs: 13:36 BP 173 / 105; Pulse 92; Resp 16; Temp 99.1; Pulse Ox 96% ; Weight 113.85 kg; Height 5 ft. 3 in. (160.02 cm); 15:45 BP 157 / 89; Pulse 90; Resp 18; Pulse Ox 97% ; jb7 13:36 Body Mass Index 44.4 6 (113.85 kg, 160.02 cm) MDM: 13:46 Patient medically screened. [facility] 14:08 Data reviewed: vital signs, nurses notes. ED course: EKG [facility] demonstrates normal sinus rhythm without any ST or T wave changes consistent with ischemia.. 15:32 ED course: Patient felt better after IV Protonix and jdl Zofran. Laboratory and radiologic investigations returned reassuring. Overall given the location of the pain and the amount of the ibuprofen that the patient has been taking, I am most concerned about the possibility of peptic ulcer disease versus gastritis. I am going to start the patient on proton pump inhibitor and ask for close follow-up with her primary care doctor. I have gone over return instructions with the patient.. 04/11 13:55 Order name: CRP - Wide Range; Complete Time: 14:47 [facility] 04/11 14:47 Interpretation: Within normal limits: CRP-wr 11.50. [facility] 04/11 13:55 Order name: Cbc With Auto Differential; Complete Time: 14:47jdl 04/11 14:47 Interpretation: WBC 12.7; HGB 13.1; HCT 37.0; PLT 284. [facility] 04/11 13:55 Order name: Comprehensive Metabolic Prof.; Complete Time: jdl 14:47 04/11 13:55 Order name: Lipase; Complete Time: 14:47 j 04/11 13:55 Order name: UA.; Complete Time: 15:32 [facility] 04/11 15:32 Interpretation: Within normal limits: Ur Color Yellow; Ur jdl Clarity Clear; Ur Spec gravity 1.011; Ur PH 6.5; Ur Protein Negative; Ur Glucose Negative; Ur Ketones Negative; Ur Blood Negative; Ur Bilirubin Negative; Ur Urobilinogen 0.2; Ur Leuk Est Negative; Ur Nitrite Negative. 07 13:55 Order name: Troponin I; Complete Time: 14:52 [facility] 04/11 14:52 Interpretation: Within normal limits: TROP I < 0.045. [facility] 04/11 13:55 Order name: Us Gall Bladder Study [facility] 04/11 13:55 Order name: Emergency Room EKG Order - Use EKG Work-Up [facility] /Quick Select; Complete Time: 14:01 04/11 13:55 Order name: Cardiology EKG Interpretation - Choose Reason [facility] for Test 04/11 13:55 Order name: Collect Urine - Clean Catch; Complete Time: jdl 15:25 04/11 13:55 Order name: Iv Saline Lock; Complete Time: 14:29 [facility] 04/11 13:55 Order name: NPO; Complete Time: 14:29 [facility] Dispensed Medications: 14:23 Drug: Protonix 40 mg [Protonix 40 mg intravenous solution meb (40 mg)] Route: IVP; Site: anterior chest - left; 15:25 Follow up: Response: No adverse reaction jb7 14:25 Drug: Ondansetron (PF) 4 mg [ondansetron HCl (PF) 4 mg/2 mL meb injection solution (2 mL)] Route: IVP; Infused Over: 2 mins; Site: anterior chest - left; 15:25 Follow up: Response: No adverse reaction jb7 14:26 Drug: ketorolac 15 mg [ketorolac 30 mg/mL (1 mL) injection meb solution (0.5 mL)] Route: IVP; Site: anterior [facility] - left; 15:25 Follow up: Response: No adverse reaction jb7 14:29 Drug: NS 0.9% 1000 ml [sodium chloride 0.9 % intravenous meb solution] Route: IV; Rate: 999 mL/hr; Site: anterior chest - left; 15:56 Follow up: IV Status: Completed infusion; IV Intake: 1000ml jb7 15:53 Drug: Heparin 500 units, to de-access infusaport 500 units jb7 {Note: Pre-made 500units/5ml heparin flush.} Route: IV; Rate: per protocol; Site: anterior [facility] - left; 15:57 Follow up: IV Status: Completed infusion; IV Intake: 5ml jb7 Disposition Summary: 04/11/21 15:38 Discharge Ordered Location: Home/Self Care jdl Condition: Good jdl Diagnosis - Epigastric pain jdl Followup: jdl - With: Valerie Tarango MD - When: 2 - 3 days - Reason: Recheck today's complaints Discharge Instructions: - Discharge Summary Sheet jdl - Abdominal Pain, Adult jdl Forms: - Medication Reconciliation j Prescriptions: - Protonix 40 mg Oral tablet,delayed release (DR/EC) - take 1 tablet by ORAL route 2 times per day; 40 jdl tablet; Refills: 0, Product Selection Permitted Signatures: Dispatcher [employer] Eros Ervin MD MD jdl Jensen, Sandra, RN RN sj Bond, Jarrett, RN RN jb7 Brown, Mikayla, RN RN meb Name Value Range Interpretation Code Description Data Ekta rce(s) Supporting Document(s) ID Date Data Source [id number] 04/11/2021 01:23:00 PM EDT [facility] Name: ANGELIA ARTHUR [facility] Rec #: [id number] : 1965 Age/Sex: 55F Date of Service: 04/11/21 NURSE CHART Nurse's Notes [facility] Name: Angelia Arthur Age: 55 yrs Sex: Female : 1965 Arrival Date: 04/11/2021 Time: 13:23 Bed 9 Private MD: Valerie Tarango L Diagnosis: Epigastric pain Inbound Details: Referred by: [facility]gent [facility], [place] Arriving by: Walk-In ETA: Who will see patient? ED Physician Notes: 55-year-old female presented to urgent care with chief complaint of dizziness nausea, and epigastric pain. Has a normal EKG but severe abdominal tenderness on exam. Notify referring provider: Do not notify Presentation: 04/11 13:34 Transition of care: patient was not received from another setting of care. Presenting complaint: Patient states - Wednesday she started feeling lightheaded ,nauseated and fatigued. Today she has been vomiting and had RUQ pain. States she has recently been treated for UTI and has finished her course of antibiotics. Have you travelled in the last 30 days? No. Have you had contact with an individual with a confirmed diagnosis of Ebola or COVID-19? No. 13:34 Method Of Arrival: Walk-In 13:34 Acuity: Urgent - 3 Triage Assessment: 13:35 Suicide Screening: Have you had thoughts of harming yourself or others? No. The patient appears to have some mild discomfort, The patient is cooperative. Patient states the pain is currently a 5 / 10 The patient complains of pain in right upper quadrant. The quality of the pain is described as aching, sharp, The pain is described as continuous. Historical: - Allergies: Azulfidine; Reglan; Soliris; Stelara; SULFA (SULFONAMIDES); - Home Meds: 1. gabapentin 600 mg Oral tab 1 tab 3 times per day 2. losartan 100 mg Oral tab 1 tab once daily 3. Motrin 800 mg Oral tab 1 tab 3 times per day 4. omeprazole 40 mg Oral cpDR 1 cap once daily 5. remicade infusions 6. Restasis 0.05 % ophthalmic (eye) dpet 1 drop every 12 hours 7. ropinirole 1 mg Oral tab 1 tab I mg in am and in afternoon and 2 mg at bedtime 8. Vitamin B-12 Oral tab - PMHx: ARTHRITIS; CHRONIC BACK PAIN; GERD; liver failure; LUPUS; myasthenia gravis; psoriasis arthri tis; pulmonary emboli ([id number]); - PSHx: Port Placement; R-hip repair; R-knee repair; spinal fusion; - Med Reconciliation:: Green Alert: The patient's med list is complete to the best of the nurse's/provider's knowle dge. Medications reviewed, verbally from patient/family. - Social History: Smoking status (Tobacco): Patient states they are a former tobacco smoker, quit smoking 4 years ago. No barriers to communication noted, The patient speaks fluent Ivorian. Screenin:54 AUDIT 1. How often do you have a drink containing alcohol? jb7 Never (0 points). Drug Abuse Screening Test: 1. Have you used drugs other than those required for medical reasons? No (0 points), screen is complete, no risk. Abuse screen: Denies threats or abuse. Denies injuries from another. Nutritional screening: No deficits noted. Patient has no identifiable fall risk (Abdi Scale: 0 points). Assessment: 14:15 Neuro: Level of Consciousness is awake, alert, Patient is meb oriented to person, place and time. Patient reports headache, in entire since wednesday. Cardiovascular: Patient reports lightheadedness, Nausea. GI: Abdomen is obese, Bowel sounds present X 4 quads. On palpation, Abd is tender to palpation in right upper quadrant and right lower quadrant The patient reports lower abdominal pain, upper abdominal pain, nausea, The patient denies diarrhea, vomiting. Vital Signs: 13:36 BP 173 / 105; Pulse 92; Resp 16; Temp 99.1; Pulse Ox 96% ; sj Weight 113.85 kg; Height 5 ft. 3 in. (160.02 cm); 15:45 BP 157 / 89; Pulse 90; Resp 18; Pulse Ox 97% ; jb7 13:36 Body Mass Index 44.46 (113.85 kg, 160.02 cm) ED Course: 13:17 Urgent Care, Chas is Referring Provider. jdl 13:23 Patient arrived in ED. EDMS 13:32 Eros Oakley MD is Attending Physician. jdl 13:34 Valerie Tarango MD is Private Physician. 13:35 Triage completed. 13:36 Arm band placed on right wrist. 13:39 Yanci Groves, RN is Primary Nurse. meb 13:50 monitor worker on. Pulse on is on. NIBP on. meb 14:00 An EKG was obtained and reviewed by Eros Oakley MD. meb 14:01 Cardiology EKG Interpretation - Choose Reason for Test Sent.meb 14:10 Labs drawn by ED staff. Accessed Infusaport with 1" Pearson meb needle, 20 gauge, in anterior aspect of left upper chest. usuing sterile technique, per hospital protocol. Clean & dry. Dressing intact. Flushes easily. 14:28 Radiology: The patient's bedside ultrasound was completed meb at 14:28. 14:29 Us Gall Bladder Study Sent. meb 15:38 Valerie Tarango MD is Referral Physician. jdl 15:54 No procedures ordered. Discontinued Infusaport bleeding jb7 controlled, pressure dressing applied, No redness/swelling at site. Administered Medications: 14:23 Drug: Protonix 40 mg [Protonix 40 mg intravenous solution meb (40 mg)] Route: IVP; Site: anterior chest - left; 15:25 Follow up: Response: No adverse reaction jb7 14:25 Drug: Ondansetron (PF) 4 mg [ondansetron HCl (PF) 4 mg/2 mL meb injection solution (2 mL)] Route: IVP; Infused Over: 2 mins; Site: anterior chest - left; 15:25 Follow up: Response: No adverse reaction jb7 14:26 Drug: ketorolac 15 mg [ketorolac 30 mg/mL (1 mL) injection meb solution (0.5 mL)] Route: IVP; Site: anterior chest - left; 15:25 Follow up: Response: No adverse reaction jb7 14:29 Drug: NS 0.9% 1000 ml [sodium chloride 0.9 % intravenous meb solution] Route: IV; Rate: 999 mL/hr; Site: anterior chest - left; 15:56 Follow up: IV Status: Completed infusion; IV Intake: 1000ml jb7 15:53 Drug: Heparin 500 units, to de-access infusaport 500 units jb7 {Note: Pre-made 500units/5ml heparin flush.} Route: IV; Rate: per protocol; Site: anterior chest - left; 15:57 Follow up: IV Status: Completed infusion; IV Intake: 5ml jb7 Intake: 15:56 IV: 1000ml; Total: 1000ml. jb7 15:57 IV: 5ml; Total: 1005ml. jb7 Outcome: 15:38 Discharge ordered by MD. gaspar 15:54 Patient verbalized understanding of disposition jb7 instructions. Patient has no functional deficits. Patient functions independently, Patient awake and alert. 15:54 Patient discharged to home ambulatory. 15:54 Condition: good Condition: stable 15:54 Discharge instructions given to patient, Patient was instructed on discharge instructions, follow up and referral plans, medication usage, The patient demonstrated understanding of instructions, No prescriptions given. 15:54 Vitals are Complete in accordance with Emergency Department Policy. 15:56 Patient left the ED. jb7 Signatures: Dispatcher [employer] EDMS Eros Oakley MD MD jdl Jensen, Sandra, RN RN sj Bond, Jarrett, RN RN jb7 Brown, Mikayla, RN RN meb Name Value Range Interpretation Code Description Data [facility](s) Supporting Document(s) ID Date Data Source [id number] 04/11/2021 03:31:00 PM EDT [facility] Name Value Range Interpretation Code Description Data [facility](s) Supporting Document(s) Color,Urine Yellow Normal (applies to non-numeric resu lts) [facility] Clarity,Urine Clear Normal (applies to non-numeric re sults) [facility] Specific [place],Urine 1.001-1.030 Normal (applies to non- numeric results) [facility] PH,Urine 5.0-8.0 Normal (applies to non-numeric resul ts) [facility] Protein,Urine Negative Normal (applies to non-numeric re sults) [facility] Glucose,Urine (UA) Negative Normal (applies to non-numer ic results) [facility] Ketones,Urine Negative Normal (applies to non-numeric re sults) [facility] Blood,Urine Negative Normal (applies to non-numeric resu lts) [facility] Bilirubin,Urine Negative Normal (applies to non-numeric results) [facility] Urobilinogen,Urine Norm 0.2-1 Normal (applies to non-numer ic results) [facility] Leukocyte Esterase,Urine Negative Normal (applies to non -numeric results) [facility] Nitrite,Urine Negative Normal (applies to non-numeric re sults) [facility] ID Date Data Source [id number] 04/11/2021 02:48:00 PM EDT [facility] Name Value Range Interpretation Code Description Data [facility](s) Supporting Document(s) Troponin I 0.000-0.045 Normal (applies to non-numeric resu lts) [facility] ID Date Data Source [id number] 04/11/2021 02:43:00 PM EDT [facility] Name Value Range Interpretation Code Description Data [facility]) Supporting Document(s) C-Reactive Protein,Wide Range <3.00 Above high normal [facility] ID Date Data Source [id number] 04/11/2021 02:43:00 PM EDT [facility] Name Value Range Interpretation Code Description Data [facility]) Supporting Document(s) Sodium 141 mmol/L 137-145 Normal (applies to non-numeric resul ts) [facility] Potassium 3.5-5.1 Normal (applies to non-numeric resul ts) [facility] Chloride 109 mmol/L 98-112 Normal (applies to non-numeric resul ts) [facility] Carbon Dioxide CO2 22.0-33.0 Normal (applies to non-numer ic results) [facility] Anion Gap 4.0-11.0 Normal (applies to non-numeric resul ts) [facility] BUN 15 mg/dL 7-17 Normal (applies to non-numeric resul ts) [facility] Creatinine 0.70-1.20 Below low normal [facility] GFR >60 Normal (applies to non-numeric results) [facility] Result based on MDRD formula. Glucose Level 75 mg/dL 74-99 Normal (applies to non-numeric re sults) [facility] The reference range is only applicable w hen fasting. Calcium-Uncorrected 8.4-10.2 Normal (applies to non-nume yahir results) [facility] Corrected Calcium 8.4-10.2 Normal (applies to non-numeri c results) [facility] Bilirubin,Total 0.2-1.3 Normal (applies to non-numeric results) [facility] SGOT(AST) 23 U/L 14-36 Normal (applies to non-numeric resul ts) [facility] SGPT(ALT) 46 U/L 9-52 Normal (applies to non-numeric resul ts) [facility] Alkaline Phosphatase 123 U/L 38-126 Normal (applies to non-num salome results) [facility] can increase Alkaline Phosp le vels up to 2 times the normal adult value. Normal values for children and adolescents are 2 to 3 times the normal adult value. Total Protein 6.3-8.2 Normal (applies to non-numeric re sults) [facility] Albumin 3.5-5.0 Normal (applies to non-numeric resul ts) [facility] ID Date Data Source [id number] 04/11/2021 02:43:00 PM EDT [facility] Name Value Range Interpretation Code Description Data [facility](s) Supporting Document(s) Lipase 111 U/L 73-393 Normal (applies to non-numeric resul ts) [facility] ID Date Data Source [id number] 04/11/2021 02:31:00 PM EDT [facility] Name Value Range Interpretation Code Description Data [facility](s) Supporting Document(s) White Blood Count 4.8-10.8 Above high normal [facility] Red Blood Count 3.68-5.22 Normal (applies to non-numeric results) [facility] Hemoglobin 11.2-15.7 Normal (applies to non-numeric resul ts) [facility] Hematocrit 34.1-44.9 Normal (applies to non-numeric resul ts) [facility] Mean Corpuscular Volume 81-99 Normal (applies to non- numeric results) [facility] Mean Corpuscular Hemoglobin 27.0-33.0 Normal (appli es to non-numeric results) [facility] Mean Corpuscular HGB Conc 32.0-36.0 Normal (applies to no n-numeric results) [facility] Red Cell Distribution Width 11.5-14.5 Normal (appli es to non-numeric results) [facility] Platelet Count 284 X10 3/uL 130-450 Normal (applies to non-numeric results) [facility] Mean Platelet Volume 9.5-12.7 Normal (applies to non-num salome results) [facility] Imm Grans% (AUTO) 1 % 0-2 Normal (applies to non-numeri c results) [facility] Neutrophils % (AUTO) 60 % 40-75 Normal (applies to non-num salome results) [facility] Lymphocytes % (AUTO) 30 % 21-46 Normal (applies to non-num salome results) [facility] Monocytes % (AUTO) 8 % 5-12 Normal (applies to non-numer ic results) [facility] Eosinophils % (AUTO) 1 % 1-5 Normal (applies to non-num salome results) [facility] Basophils % (AUTO) 0 % 0-1 Normal (applies to non-numer ic results) [facility] Imm Grans# (AUTO) 0.0-0.5 Normal (applies to non-numeri c results) [facility] Neutrophils # (AUTO) 1.5-8.1 Normal (applies to non-num salome results) [facility] Lymphocytes # (AUTO) 1.0-3.1 Above high normal [facility] Monocytes # (AUTO) 0.2-1.3 Normal (applies to non-numer ic results) [facility] Eosinophils# (AUTO) 0.0-0.5 Normal (applies to non-nume yahir results) [facility] Basophils # (AUTO) 0.0-0.1 Normal (applies to non-numer ic results) [facility] ID Date Data Source [id number] 04/16/2021 07:28:00 PM EDT [facility] Name: ANGELIA ARTHUR : 1965 Age/Sex: 55F Ordering Provider: Eros Oakley MD Med Rec #: [id number] Reg Status:DEP ER Room #: Date of Service: 04/11/21 Report Number: [id number] cc: Valerie Tarango MD; Eros Oakley MD Send Report To: Reason for exam: ABDOMINAL PAIN SINUS RHYTHM NORMAL ECG Physician [employer] Mechanic: Dr. Wei Castillo M.D. ECG HEART RATE: 85 /min ECG RR INTERVAL: 702 ms ECG P DURATION: 113 ms ECG QRS DURATION: 86 ms ECG PA INTERVAL: 162 ms ECG QT INTERVAL: 354 ms ECG QTC INTERVAL: 397 ms Q-T dispersion: ms ECG P AXIS: 45 deg ECG QRS AXIS: 46 deg ECG T AXIS: 51 deg REPORT SIGNATURE ON FILE 04/16/211927 Reported By: Wei Castillo MD <<Signature on File>> Exam Date/Time: 04/11/21 1400 Order #: [id number] Dictation Date/Time: 04/16/211927 Transcribed Date/Time: 04/16/211927 Medicaid Analyst: [employer] Name Value Range Interpretation Code Description Data [facility]s) Supporting Document(s) ID Date Data Source [id number] 04/13/2021 05:34:00 AM EDT [facility] Name: ANGELIA ARTHUR : 1965 Age/Sex: 55F Ordering Provider: Eros Oakley MD Med Rec #: [id number] Reg Status: DEP ER Room #: Date of Service: 04/11/21 Report Number: [id number] cc:Valerie Tarango MD; Eros Oakley MD Send Report To: [id number] US/US Gall Bladder Study Reason for exam: RUQ PAIN FINDINGS: The visualized portions of the pancreas appear grossly unremarkable. Liver shows fatty infiltration and poor penetration. It measures approximately 15.5 cm in size. The gallbladder wall is at the upper limits of normal measuring3 mm. No cholelithiasis or pericholecystic fluid is identified. The common duct is normal at 4 mm. IMPRESSION: Liver shows poor penetration and fatty infiltration. The gallbladder wall is at the upper limits of normal measuring 3 mm. No cholelithiasis or pericholecystic fluid is identified. The common duct is withinnormal limits. REPORT DICTATED BY WIN DESIR, REVIEWED AND SIGNED BY DR. MENDEZ REPORT SIGNATURE ON FILE Reported By: Ga Mendez MD Electronically signed by: Ga Mendez MD 04/15/21 1326 Dictation Date/Time: 04/11/21 1448 Transcribed Date/Time: 04/13/21 0534 Medicaid Analyst: DANIEL Name Value Range Interpretation Code Description Data [facility](s) Supporting Document(s) ID Date Data Source [id number] 03/28/2021 07:53:00 PM EDT [facility] Name Value Range Interpretation Code Description Data [facility](s) Supporting Document(s) CRP,Wide Range result <3.00 [facility] Test Performed By: [facility] [address] [place] [address] Director: Sandra Zuñiga MD ID Date Data Source [id number] 03/28/2021 05:35:00 PM EDT [facility] Name Value Range Interpretation Code Description Data [facility](s) Supporting Document(s) C-Reactive Protein,Wide Range <3.00 Above high normal [facility] Test Performed By: [facility] [address] [place] [address] Director: Sandra Zuñiga MD ID Date Data Source [id number] 03/28/2021 02:27:00 PM EDT [facility] Name Value Range Interpretation Code Description Data [facility](s) Supporting Document(s) Sodium 141 mmol/L 136-145 Normal (applies to non-numeric resul ts) [facility] Potassium 3.5-5.1 Normal (applies to non-numeric resul ts) [facility] Chloride 104 mmol/L 98-107 Normal (applies to non-numeric resul ts) [facility] Carbon Dioxide CO2 21-32 Normal (applies to non-numer ic results) [facility] Anion Gap 5.0-16.0 Normal (applies to non-numeric resul ts) [facility] BUN 18 mg/dL 7-18 Normal (applies to non-numeric results) [facility] Creatinine,Serum 0.7-1.2 Below low normal [facility] GFR >60 Normal (applies to non-numeric results) [facility] Glucose Level 87 mg/dL 60-99 Normal (applies to non-numeric re sults) [facility] Reference range is only applicable when patient is fasting Note the following drug interference: Sulfasalazine Sulfapyridine Can see falsely depressed Can see falsely elevated result with up to 17% results with up to 11% decrease in measurement increase in measurement Recommend patients be collected for this test prior to administration of either drug. Calcium 8.5-10.1 Normal (applies to non-numeric resul ts) [facility] Bilirubin,Total 0.1-1.9 Normal (applies to non-numeric results) [facility] SGOT(AST) 30 U/L 15-37 Normal (applies to non-numeric resul ts) [facility] Note the following drug interference: Sulfasalazine Sulfapyridine Can see falsely depressed Can see falsely elevated result with up to 10% results with up to 10% decrease in measurement increase in measurement Recommend patients be collected for this test prior to administration of either drug. SGPT(ALT) 52 U/L 12-78 Normal (applies to non-numeric resul ts) [facility] Note the following drug interference: Sulfasalazine Sulfapyridine Can see falsely depressed Can see falsely elevated result with up to 29% results with up to 10% decrease in measurement increase in measurement Recommend patients be collected for this test prior to administration of either drug. Alkaline Phosphatase 118 U/L 38-126 Normal (applies to non-num salome results) [facility] can increase Alkaline Phosp le vels up to 2 times the normal adult value. Normal values for children and adolescents are 2 to 3 times the normal adult value. Total Protein 6.0-8.2 Normal (applies to non-numeric re sults) [facility] Albumin Level 3.4-5.0 Normal (applies to non-numeric re sults) [facility] ID Date Data Source [id number] 03/28/2021 02:05:00 PM EDT [facility] Name Value Range Interpretation Code Description Data [facility](s) Supporting Document(s) White Blood Count 3.5-10.5 Normal (applies to non-numeri c results) [facility] Red Blood Count 3.90-5.00 Normal (applies to non-numeric results) [facility] Hemoglobin 12.0-15.5 Normal (applies to non-numeric resul ts) [facility] Hematocrit 34.9-44.5 Normal (applies to non-numeric resul ts) [facility] Mean Corpuscular Volume 81.2-95.1 Normal (applies to non- numeric results) [facility] Mean Corpuscular Hgb 25.6-32.2 Normal (applies to non-num salome results) [facility] Mean Corpuscular Hgb Conc 32.0-36.0 Normal (applies to no n-numeric results) [facility] Red Cell Distribution Width 11.9-15.5 Normal (appli es to non-numeric results) [facility] Platelet Count 289 x10 3/uL 150-450 Normal (applies to non-numeric results) [facility] Mean Platelet Volume 9.4-12.4 Normal (applies to non-num salome results) [facility] Neutrophils% (Auto) 31.0-71.0 Normal (applies to non-nume yahir results) [facility] Lymphocytes% (Auto) 20.0-55.0 Normal (applies to non-nume yahir results) [facility] Monocytes% (Auto) 4.0-12.0 Normal (applies to non-numeri c results) [facility] Eosinophils% (Auto) 1.0-8.0 Normal (applies to non-nume yahir results) [facility] Basophils% (Auto) 0.0-2.0 Normal (applies to non-numeri c results) [facility] Immature Granulocytes% (Auto) 0.0-2.0 Normal (taiwo lies to non-numeric results) [facility] Neutrophils# (Auto) 1.50-6.20 Normal (applies to non-nume yahir results) [facility] Lymphocytes# (Auto) 1.20-4.00 Normal (applies to non-nume yahir results) [facility] Monocytes# (Auto) 0.00-0.90 Normal (applies to non-numeri c results) [facility] Eosinophils# (Auto) 0.00-0.50 Normal (applies to non-nume yahir results) [facility] Basophils# (Auto) 0.00-0.20 Normal (applies to non-numeri c results) [facility] Immature Granulocytes# (Auto) 0.00-7.00 No rmal (applies to non-numeric results) [facility] ID Date Data Source [id number] 03/28/2021 02:05:00 PM EDT [facility] Name Value Range Interpretation Code Description Data [facility](s) Supporting Document(s) Erythrocyte Sedimentation rate 20 mm/hr 0-20 N ormal (applies to non-numeric results) [facility] ID Date Data Source [id number] 03/26/2021 09:32:00 AM EDT [facility] spital Procedure Performed By: [facility] [address] [place] [address] Director: Asuncion Zuñiga MD Mixed kirill: Mixed kirill, probable contamination. Name Value Range Interpretation Code Description Data [facility] rce(s) Supporting Document(s) ID Date Data Source [id number] 03/26/2021 09:28:00 AM EDT [facility] Procedure Performed By: [facility] [address] [place] [address] Director: Asuncion Zuñiga MD Name Value Range Interpretation Code Description Data [facility] rce(s) Supporting Document(s) Urine Culture Normal (applies to non-numeric re sults) [facility] ID Date Data Source [id number] 03/25/2021 09:22:00 AM EDT [facility] Name Value Range Interpretation Code Description Data [facility] rce(s) Supporting Document(s) Color,Urine Colorl-Dk Y Normal (applies to non-numeric res ults) [facility] Clarity,Urine Clear Normal (applies to non-numeric re sults) [facility] Specific [place],Urine 1.005-1.030 Normal (applies to non- numeric results) [facility] pH,Urine 5.0-8.0 Normal (applies to non-numeric resul ts) [facility] Protein,Urine Negative Normal (applies to non-numeric re sults) [facility] Glucose,Urine Negative Normal (applies to non-numeric re sults) [facility] Ketones,Urine Negative Normal (applies to non-numeric re sults) [facility] Blood,Urine Negative [facility] Bilirubin,Urine Negative Normal (applies to non-numeric results) [facility] Urobilinogen,Urine 0.2-1.0 Normal (applies to non-numer ic results) [facility] Leukocyte Esterase,Urine Negative Normal (applies to non -numeric results) [facility] Nitrite,Urine Negative Normal (applies to non-numeric re sults) [facility] RBC,Urine None Seen [facility] WBC,Urine None Seen [facility] Casts,Urine None Seen Normal (applies to non-numeric resu lts) [facility] Squamous Cells,Urine None Seen [facility] Bacteria,Urine None Seen [facility] ital Mucus,Urine None Seen [facility] l ID Date Data Source [id number] 03/07/2021 11:01:00 AM EDT [facility] Name: ANGELIA ARTHUR [facility] Rec #: [id number] : 1965 Age/Sex: 55F Date of Service: 03/07/21 PHYSICIAN CHART Physician Documentation [facility] Name: Angelia Arthur Age: 55 yrs Sex: Female : 1965 Arrival Date: 03/07/2021 Time: 11:01 Bed 5 Private MD: Valerie Tarango L ED Physician Roosevelt Ritchie Disposition: 03/07 13:44 Attestation: I was present, saw, evaluated and participated rc3 in the care with the Advanced Practice Provider. I agree with HPI as documented. My personal exam reveals findings consistent with those documented. HPI: 11:32 This 55 yrs old Female presents to ER via Walk-In mmo with complaints of Palpitations, Pain With Urination, Urinary Frequency. 11:32 The patient is a 55-year-old female who presents today for mmo complaints of palpitations that have been ongoing since 03/05/2021, urinary frequency, and dysuria. Patient states she was seen by her primary care provider on Wednesday for urinary symptoms, was diagnosed with a urinary tract infection and discharged home on Macrobid. She states the palp itations began Wednesday, 2 days after starting the antibiotics, she contacted her primary care provider who stated that she would call her in a different antibiotic as she felt perhaps the palpitations were a side effect of the antibiotic. Patient states that she is still taking Macrobid and has not changed her antibiotic yet. She does not know which antibiotic was prescribed for her. With the palpitations she does report some shortness of breath and diaphoresis. She denies anglin ving chest pain. She denies any abdominal pain, nausea, vomiting. No changes in her bowel habits. No fevers or chills. She reports a history of pulmonary embolism in 2017 for which she required anticoagulation for 8 months, she is not currently on anticoagulation.. 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 Macrobid 100 mg Oral cap 1 cap every 12 hours 2. losartan 100 mg Oral tab 1 tab once daily 3. omeprazole 40 mg Oral cpDR 1 cap once daily 4. gabapentin 600 mg oral tab 1 tab 3 times per day 5. remicade infusions 6. ropinirole 1 mg Oral tab 1 tab I mg in am and in afternoon and 2 mg at bedtime 7. Vitamin B-12 Oral tab 8. Restasis 0.05 % ophthalmic (eye) dpet 1 drop every 12 hours 9. Motrin 800 mg Oral tab 1 tab 3 times per day - PMHx: ARTHRITIS; CHRONIC BACK PAIN; GERD; liver failure; LUPUS; myasthenia gravis; psoriasis arthritis; pulmonary emboli ([id number]); - PSHx: Port Placement; R-hip repair; R- knee repair; spinal fusion; - Med Reconciliation:: Yellow Alert: The patient's home medication list is partly complete. However, additional information is required to complete list. Medications reviewed, completed by nurse verbally from patient/family. - Immunization history,: Flu vaccine is up to date. - Advance directive: There is no existing advanced directive. Information offered. - Family History:: mother is . Father is . - Social History: Smoking status (Tobacco): Patient states they are a former tobacco smoker, quit smoking 5 yr ago. No barriers to communication noted, The patient speaks fluent Ivorian. ROS: 11:34 Cardiovascular: Positive for palpitations. Respiratory: mmo Positive for shortness of breath. : Positive for urinary frequency, burning with urination. All other systems are negative. Exam: 11:35 Head/Face: Normocephalic, atraumatic. Cardiovascular: mmo Regular rate and rhythm with a normal S1 and S2. No gallops, murmurs, or rubs. No pulse deficits. Respiratory: Lungs have equal breath sounds bilaterally, clear to auscultation and percussion. No rales, rhonchi or wheezes noted. Abdomen/GI: Soft, non-tender, with normal bowel sounds. No distension or tympany. No guarding or rebound. No evidence of tenderness throughout. Back: No spinal tenderness. No costovertebral tenderness. Full range of motion. Skin: Warm, dry with normal turgor. Normal color with no rashes, no lesions, and no evidence of cellulitis. MS/ Extremity: Pulses equal, no cyanosis. Neurovascular intact. Full, normal range of motion. Neuro: Awake and alert, GCS 15, oriented to person, place, time, and situation. Psych: Behavior, mood, and affect are within normal limits. 11:35 Constitutional: The patient appears alert, appears anxious, appears to be awake, is not diaphoretic, does not appear to be toxic, is obese, is obviously uncomfortable. 15:47 Respiratory: Respirations: normal, Breath sounds: are mmo normal, clear throughout. Vital Signs: 11:07 BP 178 / 105; Pulse 98; Resp 18; Temp 98.1; Pulse Ox 96% ; edv Weight 113.85 kg; Height 5 ft. 3 in. (160.02 cm); 11:53 BP 143 / 88 RA Sitting (auto/reg); Pulse 87 MON; Resp 17 S; rp1 Pulse Ox 96% on R/A; 12:52 BP 130 / 72; Pulse 84; Resp 18; Pulse Ox 94% on R/A; md1 13:51 BP 141 / 91 RA Sitting (auto/reg); Pulse 87 MON; Resp 16 S; rp1 Pulse Ox 97% on R/A; 14:50 BP 131 / 63 RA Sitting (auto/reg); Pulse 84 MON; Resp 18 S; rp1 Pulse Ox 95% on R/A; 15:20 BP 120 / 75 RA Sitting (auto/reg); Pulse 82 MON; Resp 18 S; rp1 Temp 96.6(TE); Pulse Ox 95% on R/A; 11:07 Body Mass Index 44.46 (113.85 kg, 160.02 cm) edv MDM: 11:15 Patient medically screened. mmo 11:45 ECG:. mmo 12:46 ED course: Urine culture from 03/03/2021 reveals Macrobid is mmo sensitive. Positive for E. coli.. 12:50 ECG: The ECG on this patient demonstrates Other Sinus rc3 rhythm heart rate 98, normal axis, normal intervals, no ST elevations or depressions overall fairly similar to previous dated January 10, 2021. 12:51 ED course: Portable chest x-ray read: No acute disease. rc3 Image also reviewed by me.. 12:58 ED course: CXR - Lauro FITZPATRICK Michael // Radiologist [facility] mmo - 03/07/2021 11:59:50 AM No acute disease . 13:13 ED course: Portable chest x-ray read: No acute disease. rc3 Image also reviewed by me.. 15:47 Case presented to: Roosevelt Ritchie DO. Data reviewed: vital mmo signs, nurses notes, lab test result(s), EKG, radiologic studies. ED course: The patient is a 55-year-old female with a past medical history of chronic back pain, GERD, lupus, arthritis who presents today for complaints of palpitations, pain with urination, and urinary frequency for the past few days. Patient was started on Macrobid on Wednesday, stated that her symptoms started shortly after which included palpitations and shortness of breath. Patient's lab work here in the emergency department relatively unremarkable, negative D-dimer, chest x-ray showed no acute disease. Blood counts within the normal range, CMP within the normal range. Lactic acid 1.5. Thyroid studies and magnesium within the normal range. Patient was stable while here in the emergency department, her symptoms were controlled with her home medications of Tylenol, ibuprofen, gabapentin, and she did receive 4 mg of [place] here in the emergency department. She stated that she felt better and she was looking to go home. We will discharge patient home with recommendation to follow-up with her primary care provider early next week to recheck todays complaints. She was advised to return back to the emergency department for any new or worsening symptoms. Vital signs on discharge blood pressure 120/75, pulse in the 80s and regular, respirations 18, temperature 96.6, oxygen saturation 95% on room air.. 03/07 11:28 Order name: Cbc With Auto Differential; Complete Time: 13:04mmo 03/07 13:04 Interpretation: WBC 10.9; RBC 4.69; HGB 13.5; HCT 38.9; PLT mmo 299. 03/07 11:28 Order name: COMMET; Complete Time: 13:57 mmo 03/07 11:28 Order name: Troponin I; Complete Time: 13:21 mmo 03/07 13:21 Interpretation: TROP I < 0.045. mmo 03/07 11:28 Order name: Lipase; Complete Time: 13:57 mmo 03/07 11:28 Order name: UA.; Complete Time: 12:10 mmo 03/07 12:10 Interpretation: Ur Color Yellow; Ur Clarity Clear; Ur mmo Glucose Negative; Ur Ketones Negative; Ur Blood Negative; Ur Protein Negative; Ur Leuk Est Negative; Ur Nitrite Negative. 03/07 11:28 Order name: D-Dimer; Complete Time: 13:13 mmo 03/07 11:11 Order name: Cardiology EKG Interpretation - Choose Reason edv for Test 03/07 11:28 Order name: Chest Xray - portable mmo 03/07 11:28 Order name: TSH; Complete Time: 13:57 mmo 03/07 11:28 Order name: Free T4 (free Thyroxine); Complete Time: 13:57 mmo 03/07 11:28 Order name: Magnesium; Complete Time: 13:57 mmo 03/07 12:01 Order name: POC COVID19 NOW rp1 03/07 13:21 Order name: Blood Culture - Venous mmo 03/07 13:21 Order name: Lactic Acid; Complete Time: 14:19 mmo 03/07 14:19 Interpretation: Lactic 1.5. mmo 03/07 11:11 Order name: Emergency Room EKG Order - Use EKG Work-Up edv /Quick Select; Complete Time: 11:29 03/07 11:28 Order name: Collect Urine - Clean Catch; Complete Time: mmo 11:41 03/07 11:28 Order name: POC - Collect COVID-19 swab; Complete Time: mmo 11:46 03/07 11:29 Order name: Saline Lock; Complete Time: 11:40 mmo Dispensed Medications: 14:55 Drug: Ondansetron (PF) 4 mg [ondansetron HCl (PF) 4 mg/2 mL rp1 injection solution (2 mL)] Route: IVP; Infused Over: 2 mins; Site: anterior chest - left; 15:23 Follow up: Response: Nausea is decreased rp1 EC:45 Rate is 98 beats/min. Rhythm is regular. QRS Bowie is mmo Normal. PA interval is normal at 153 msec. QRS interval is normal at 82 msec. QT interval is normal at 380 msec. No Q waves. T waves are Normal. No ST changes noted. Disposition Summary: 03/07/21 15:08 Discharge Ordered Location: Home/Self Care mmo Condition: Good mmo Diagnosis - Palpitations mmo Followup: mmo - With: Tracie Tarango MD - When: 1 week - Reason: Recheck today's complaints Discharge Instructions: - Discharge Summary Sheet mmo - Palpitations, [id number] mmo Forms: - Medication Reconciliation mmo Signatures: Dispatcher [employer] Paco Isidro, RN RN edv Roosevelt Ritchie DO DO rc3 Angelia Bucio NA NA jmg Paige, Rachel, RN RN rp1 Galina Dinh PA PA mmo Name Value Range Interpretation Code Description Data Ekta rce(s) Supporting Document(s) ID Date Data Source [id number] 03/07/2021 11:01:00 AM EDT [facility] Name: PAULANGELIA [facility] Rec #: [id number] : 1965 Age/Sex: 55F Date of Service: 03/07/21 DISPOSITION SUMMARY Discharge Summary [facility] Name:Angleia Arthur Emergency Department Age:55 yrs Sex:Female :1965 Arrival:03/07/2021 11:01 Departure Date03/07/2021 Departure Time15:22 Private MD:Valerie Tarango MD Outcome: Discharge Location: Home/Self Care Condition: Good Chief Complaint: Palpitations, Pain With Urination, Urinary Frequency Diagnosis: Palpitations Prescriptions: Follow up: Valerie Tarango MD Custom Notes: <span>Continue taking your antibiotic for your urinary tract infection.</span> <span> Follow-up with your primary care provider as needed to recheck todays complaints. Return back to the emergency department for any new or worsening symptoms. Stay well-hydrated and well rested.</span> Attending Physician: Roosevelt Ritchie DO Private MD: Valerie Tarango MD Mid Level Provider: Galina Dinh PA Followup Physician: Valerie Tarango MD Orders: Cbc With Auto Differential, COMMET, Troponin I, Lip ase, UA., D-Dimer, Cardiology EKG Interpretation - Choose Reason for Test, Chest Xray - portable, TSH, Free T4 (free Thyroxine), Magnesium, POC COVID19 NOW, Blood Culture - Venous, Lactic Acid, Emergency Room EKG Order - Use EKG Work-Up /Quick Select, Collect Urine - Clean Catch, POC - Collect COVID-19 swab, Saline Lock, Ondansetron (PF) Discharge Instruction: Discharge Summary Sheet, Palpitations, [id number], Medication Reconciliation Name Value Range Interpretation Code Description Data Ekta rce(s) Supporting Document(s) ID Date Data Source [id number] 03/07/2021 11:01:00 AM EDT [facility] Name: ANGELIA ARTHUR Med Rec #: [id number] : 1965 Age/Sex: 55F Date of Service: 03/07/21 NURSE CHART Nurse's Notes [facility] Name: Angelia Arthur Age: 55 yrs Sex: Female : 1965 Arrival Date: 03/07/2021 Time: 11:01 Bed 5 Private MD: Valerie Tarango L Diagnosis: Palpitations Presentation: 03/07 11:05 Transition of care: patient was received from another edv setting of care (ambulatory primary care physician practice), Valerie Tarango MD. Presenting complaint: Patient states - Urinary symptoms unresolved w/Rx. Palpations w/heaviness radiating to LT back. Have you travelled in the last 30 days? No. Have you had contact with an individual with a confirmed diagnosis of Ebola or COVID- 19? No. 11:05 Method Of Arrival: Walk-In edv 11:05 Acuity: Emergent - 2 edv Triage Assessment: 11:06 Suicide Screening: Have you had thoughts of harming edv yourself or others? No. The patient appears to have some mild discomfort, obese, The patient is behaving appropri ately according to age, cooperative. The patient complains of pain in left breast. The pain radiates to left subscapular area. The patient states the pain began suddenly, 6hours ago. The quality of the pain is described as heavy, The pain is described as continuous. Cardiovascular: Patient reports Diaphoresis, shortness of breath. 11:47 SEPSIS SCREEN: A Confirmed or Suspected Infection is rp1 Unknown, their temperature is not <96.8 or > 100.9, their heart rate is not >90, their RR is not >20, it is unknown if their WBC is <4 or >12, the patient does not have new or unexplained altered mental status. SIRS or Sepsis criteria is not present. 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 Macrobid 100 mg Oral cap 1 cap every 12 hours 2. losartan 100 mg Oral tab 1 tab once daily 3. omeprazole 40 mg Oral cpDR 1 cap once daily 4. gabapentin 600 mg oral tab 1 tab 3 times per day 5. remicade infusions 6. ropinirole 1 mg Oral tab 1 tab I mg in am and in afternoon and 2 mg at bedtime 7. Vitamin B-12 Oral tab 8. Restasis 0.05 % ophthalmic (eye) dpet 1 drop every 12 hours 9. Motrin 800 mg Oral tab 1 tab 3 times per day - PMHx: ARTHRITIS; CHRONIC BACK PAIN; GERD; liver failure; LUPUS; myasthenia gravis; psoriasis arthritis; pulmonary emboli ([id number]); - PSHx: Port Placement; R-hip repair; R-knee repair; spinal fusion; - Med Reconciliation:: Yellow Alert: The patient's home medication list is partly complete. However, additional information is required to complete list. Medications reviewed, completed by nurse verbally from patient/family. - Immunization history,: Flu vaccine is up to date. - Advance directive: There is no existing advanced directive. I nformation offered. - Family History:: mother is . Father is . - Social History: Smoking status (Tobacco): Patient states they are a former tobacco smoker, quit smoking 5 yr ago. No barriers to communication noted, The patient speaks fluent Ivorian. Screenin:42 AUDIT 1. How often do you have a drink containing alcohol? rp1 Never (0 points). Drug Abuse Screening Test: 1. Have you used drugs other than those required for medical reasons? No (0 points), screen is complete, no risk. Abuse screen: Denies threats or abuse. Denies injuries from another. Nutritional screening: No deficits noted. Patient has no identifiable fall risk (Abdi Scale: 0 points). Assessment: 11:42 See Triage Assessment. rp1 Vital Signs: 11:07 BP 178 / 105; Pulse 98; Resp 18; Temp 98.1; Pulse Ox 96% ; edv Weight 113.85 kg; Height 5 ft. 3 in. (160.02 cm); 11:53 BP 143 / 88 RA Sitting (auto/reg); Pulse 87 MON; Resp 17 S; rp1 Pulse Ox 96% on R/A; 12:52 BP 130 / 72; Pulse 84; Resp 18; Pulse Ox 94% on R/A; md1 13:51 BP 141 / 91 RA Sitting (auto/reg); Pulse 87 MON; Resp 16 S; rp1 Pulse Ox 97% on R/A; 14:50 BP 131 / 63 RA Sitting (auto/reg); Pulse 84 MON; Resp 18 S; rp1 Pulse Ox 95% on R/A; 15:20 BP 120 / 75 RA Sitting (auto/reg); Pul se 82 MON; Resp 18 S; rp1 Temp 96.6(TE); Pulse Ox 95% on R/A; 11:07 Body Mass Index 44.46 (113.85 kg, 160.02 cm) edv ED Course: 11:02 Patient arrived in ED. cc4 11:05 Valerie Tarango MD is Private Physician. edv 11:06 Triage completed. edv 11:07 Arm band placed on left wrist. Patient placed in exam room edv Patient has correct armband on for positive identification. 11:11 Nelly Mendoza, CECY is Primary Nurse. edv 11:12 Galina Dinh PA is PHCP. mmo 11:12 Roosevelt Ritchie DO is Attending Physician. mmo 11:22 An EKG was obtained and reviewed by Galina CEDILLO. jmg 11:29 Cardiology EKG Interpretation - Choose Reason for Test Sent.jmg 11:30 Urine collected. Clean catch specimen. jmg 11:41 Accessed Infusaport with 1" Pearson needle, 20 gauge, in rp1 anterior aspect of left upper chest. usuing sterile technique, Clean & dry. Dressing intact. Flushes easily. 11:46 Radiology: a portable X-ray was completed at 11:46. rp1 11:46 Chest Xray - portable Sent. rp1 12:01 The patient was tested for COVID-19 and the result was rp1 negative, provider notified: Galina CEDILLO. 15:06 Valerie Tarango MD is Referral Physician. mmo 15:20 No procedures ordered. Discontinued Infusaport intact, rp1 bleeding controlled, pressure dressing applied, No redness/swelling at site. Administered Medications: 14:55 Drug: Ondansetron (PF) 4 mg [ondansetron HCl (PF) 4 mg/2 mL rp1 injection solution (2 mL)] Route: IVP; Infused Over: 2 mins; Site: anterior chest - left; 15:23 Follow up: Response: Nausea is decreased rp1 Outcome: 15:08 Discharge ordered by MD. lo 15:21 Patient verbalized understanding of disposition rp1 instructions. Patient has no functional deficits. 15:21 Patient discharged to home ambulatory. 15:21 Condition: stable 15:21 Discharge instructions given to patient, Patient was instructed on discharge instructions, follow up and referral plans, The patient demonstrated understanding of instructions, No prescriptions given. 15:21 Vitals are Complete in accordance with Emergency Department Policy. 15:22 Patient left the ED. rp1 03/08 08:34 24 hour call back completed with no concerns vocalized. Signatures: Paco Corley RN RN edv Jensen, Sandra, RN RN Destiney Marmolejo RN RN md1 Angelia Bucio NA NA jmg Paige, Rachel, RN RN rp1 CarlstadtGalina Jewell PA PA mmo Abimbola Lanier cc4 Name Value Range Interpretation Code Description Data Ekta rce(s) Supporting Document(s) ID Date Data Source [id number] 03/12/2021 02:02:00 PM EDT [facility] Name Value Range Interpretation Code Description Data Ekta rce(s) Supporting Document(s) Blood Culture-Venous [facility] ID Date Data Source [id number] 03/12/2021 02:02:00 PM EDT [facility] Name Value Range Interpretation Code Description Data Ekta rce(s) Supporting Document(s) Blood Culture-Venous [facility] ID Date Data Source [id number] 03/07/2021 02:12:00 PM EDT [facility] 3 hour post Lactic if elevated? Y Name Value Range Interpretation Code Description Data Ekta rce(s) Supporting Document(s) Lactic Acid 0.4-2.0 Normal (applies to non-numeric resu lts) [facility] ID Date Data Source [id number] 03/07/2021 01:43:00 PM EDT [facility] Name Value Range Interpretation Code Description Data Ekta rce(s) Supporting Document(s) Sodium 141 mmol/L 137-145 Normal (applies to non-numeric resul ts) [facility] Potassium 3.5-5.1 Normal (applies to non-numeric resul ts) [facility] Chloride 107 mmol/L 98-112 Normal (applies to non-numeric resul ts) [facility] Carbon Dioxide CO2 22.0-33.0 Normal (applies to non-numer ic results) [facility] Anion Gap 4.0-11.0 Below low normal [facility] BUN 14 mg/dL 7-17 Normal (applies to non-numeric resul ts) [facility] Creatinine 0.70-1.20 Below low normal [facility] GFR >60 Normal (applies to non-numeric results) [facility] Result based on MDRD formula. Glucose Level 93 mg/dL 74-99 Normal (applies to non-numeric re sults) [facility] The reference range is only applicable w hen fasting. Calcium-Uncorrected 8.4-10.2 Normal (applies to non-nume yahir results) [facility] Corrected Calcium 8.4-10.2 Normal (applies to non-numeri c results) [facility] Bilirubin,Total 0.2-1.3 Normal (applies to non-numeric results) [facility] SGOT(AST) 22 U/L 14-36 Normal (applies to non-numeric resul ts) [facility] SGPT(ALT) 43 U/L 9-52 Normal (applies to non-numeric resul ts) [facility] Alkaline Phosphatase 119 U/L 38-126 Normal (applies to non-num salome results) [facility] can increase Alkaline Phosp le vels up to 2 times the normal adult value. Normal values for children and adolescents are 2 to 3 times the normal adult value. Total Protein 6.3-8.2 Normal (applies to non-numeric re sults) [facility] Albumin 3.5-5.0 Normal (applies to non-numeric resul ts) [facility] ID Date Data Source [id number] 03/07/2021 01:44:00 PM EDT [facility] Name Value Range Interpretation Code Description Data Ekta rce(s) Supporting Document(s) Magnesium 1.80-2.40 Normal (applies to non-numeric resul ts) [facility] ID Date Data Source [id number] 03/07/2021 01:44:[address] [facility] Value Range Interpretation Code Description Data Ekta rce(s) Supporting Document(s) Lipase 102 U/L 73-393 Normal (applies to non-numeric resul ts) [facility] ID Date Data Source [id number] 03/07/2021 01:44:[address] [facility] Value Range Interpretation Code Description Data Ekta rce(s) Supporting Document(s) Free T4 (Free Thyroxine) 0.76-1.46 Normal (applies to non -numeric results) [facility] ID Date Data Source [id number] 03/07/2021 01:44:[address] [facility] Value Range Interpretation Code Description Data Ekta rce(s) Supporting Document(s) Thyroid Stimulate Hormone TSH 0.358-3.740 No rmal (applies to non-numeric results) [facility] ID Date Data Source [id number] 03/07/2021 01:19:[address] [facility] Value Range Interpretation Code Description Data Ekta rce(s) Supporting Document(s) Troponin I 0.000-0.045 Normal (applies to non-numeric resu lts) [facility] ID Date Data Source [id number] 03/07/2021 01:12:[address] [facility] Value Range Interpretation Code Description Data Ekta rce(s) Supporting Document(s) D-Dimer Quant 444 ng/mLFEU <500 Normal (applies to non-numeric results) [facility] Negative for D-Dimer. This test has f ull FDA exclusion claim at a Negative cutoff value of 500 ng/mL FEU. When the d-dimer value is used in conjunction with the clinical pretest probability (PTP) assessment model to exclude DVT and PE, results less than 500 ng/mL are negative for DVT/PE. ID Date Data Source [id number] 03/07/2021 01:04:00 PM EDT [facility] Name Value Range Interpretation Code Description Data Ekta rce(s) Supporting Document(s) White Blood Count 4.8-10.8 Above high normal [facility] Red Blood Count 3.68-5.22 Normal (applies to non-numeric results) [facility] Hemoglobin 11.2-15.7 Normal (applies to non-numeric resul ts) [facility] Hematocrit 34.1-44.9 Normal (applies to non-numeric resul ts) [facility] Mean Corpuscular Volume 81-99 Normal (applies to non- numeric results) [facility] Mean Corpuscular Hemoglobin 27.0-33.0 Normal (appli es to non-numeric results) [facility] Mean Corpuscular HGB Conc 32.0-36.0 Normal (applies to no n-numeric results) [facility] Red Cell Distribution Width 11.5-14.5 Above high normal [facility] Platelet Count 299 X10 3/uL 130-450 Normal (applies to non-numeric results) [facility] Mean Platelet Volume 9.5-12.7 Normal (applies to non-num salome results) [facility] Imm Grans% (AUTO) 1 % 0-2 Normal (applies to non-numeri c results) [facility] Neutrophils % (AUTO) 60 % 40-75 Normal (applies to non-num salome results) [facility] Lymphocytes % (AUTO) 29 % 21-46 Normal (applies to non-num salome results) [facility] Monocytes % (AUTO) 8 % 5-12 Normal (applies to non-numer ic results) [facility] Eosinophils % (AUTO) 3 % 1-5 Normal (applies to non-num salome results) [facility] Basophils % (AUTO) 1 % 0-1 Normal (applies to non-numer ic results) [facility] Imm Grans# (AUTO) 0.0-0.5 Normal (applies to non-numeri c results) [facility] Neutrophils # (AUTO) 1.5-8.1 Normal (applies to non-num salome results) [facility] Lymphocytes # (AUTO) 1.0-3.1 Above high normal [facility] Monocytes # (AUTO) 0.2-1.3 Normal (applies to non-numer ic results) [facility] Eosinophils# (AUTO) 0.0-0.5 Normal (applies to non-nume yahir results) [facility] Basophils # (AUTO) 0.0-0.1 Normal (applies to non-numer ic results) [facility] ID Date Data Source [id number] 03/07/2021 12:01:00 PM EDT [facility] Name Value Range Interpretation Code Description Data Ekta rce(s) Supporting Document(s) Respiratory specimen severe acute respir atory syndrome coronavirus 2 (SARS-CoV-2) RNA Negative (qualifier value) [facility] This lab was ordered by [facility] Sony tillman and reported by [facility]. ID Date Data Source [id number] 03/07/2021 05:30:00 PM EDT [facility] Performed by: PAIRAControl Line Present ? YCOVID Screen Result: NEGATIVENegative results should be treated as presumptive and, if inconsistent with clinical signs and symptoms or necessary for patient management, should be tested with different authorized or cleared molecular tests. Negative results do not preclude SARS-CoV-2 infection and should not be used as the sole basis for patient management decisions. Negative results should be considered in the context of a patients recent exposures, history and the presence of clinical signs and symptoms consistent with COVID-19. This test has not been FDA cleared or approved; this test has been authorized by FDA under an Emergency Use Authorization for use by laboratories certified under the Clinical Laboratory Improvement Amendments of 1988 (CLIA), 42 U.S.C. 263a, to perform moderate complexity/high complexity tests and at the Point of Care (POC), i.e., in patient care settings operating under a CLIA Certificate of Waiver, Certificate of Compliance, or Certificate of Accreditation. Factsheets for healthcare providers: https://www.fda.gov/media/605321/download Factsheets for patients: https://www.fda.gov/media/895937/download The ID NOW Instrument is a rapid molecular in vitro diagnostic test utilizing an isothermal nucleic acid amplification technology intended for the qualitative detection of nucleic acid from the SARS-CoV-2 viral RNA. THIS IS A STATE REPORTABLE COMMUNICABLE DISEASE. Manual entry verified by Kim Bah 03/07/21 1729 Test Performed By: [facility] [address] [place] [address] Director: Sandra Zuñiga MD Name Value Range Interpretation Code Description Data Ekta rce(s) Supporting Document(s) ID Date Data Source [id number] 03/08/2021 02:17:00 PM EDT [facility] Name: ANGELIA ARTHUR : 1965 Age/Sex: 55F Ordering Provider: NGUYEN Abbott Med Rec #: [id number] Reg Status: [facility] Room #: Date of Service: 03/07/21 Report Number: [id number] cc:Valerie Tarango MD Send Report To: [id number] XRP/XR Chest Xray Portable Reason for exam: SHORTNESS OF BREATH FINDINGS: Left power port tip in the SVC. Lung mills clear with no acute disease noted. IMPRESSION: No acute abnormalities. Fluoroscopy time in seconds: Number of Exposures: Time Portable Image Performed: 1140 Contrast Agent in ml: Method of Administration: REPORT SIGNATURE ON FILE Reported By: Win Restrepo MD <Electronically signed by Patrick Restrepo MD> 03/11/21 0846 Dictation Date/Time: 03/07/21 1236 Transcribed Date/Time: 03/08/21 1417 Medicaid Analyst: CAMPOS Name Value Range Interpretation Code Description Data Ekta rce(s) Supporting Document(s) ID Date Data Source [id number] 03/07/2021 12:04:00 PM EDT [facility] Name Value Range Interpretation Code Description Data Ekta rce(s) Supporting Document(s) Color,Urine Yellow Normal (applies to non-numeric resu lts) [facility] Clarity,Urine Clear Normal (applies to non-numeric re sults) [facility] Specific [place],Urine 1.001-1.030 Normal (applies to non- numeric results) [facility] PH,Urine 5.0-8.0 Normal (applies to non-numeric resul ts) [facility] Protein,Urine Negative Normal (applies to non-numeric re sults) [facility] Glucose,Urine (UA) Negative Normal (applies to non-numer ic results) [facility] Ketones,Urine Negative Normal (applies to non-numeric re sults) [facility] Blood,Urine Negative Normal (applies to non-numeric resu lts) [facility] Bilirubin,Urine Negative Normal (applies to non-numeric results) [facility] Urobilinogen,Urine Norm 0.2-1 Normal (applies to non-numer ic results) [facility] Leukocyte Esterase,Urine Negative Normal (applies to non -numeric results) [facility] Nitrite,Urine Negative Normal (applies to non-numeric re sults) [facility] ID Date Data Source [id number] 03/08/2021 09:46:00 AM EDT [facility] Hospital Name: ANGELIA ARTHUR : 1965 Age/Sex: 55F Ordering Provider: Roosevelt Ritchie DO Med Rec #: [id number] Reg Status:[facility] ER Room #: Date of Service: 03/07/21 Report Number: [id number] cc: Valerie Tarango MD; Roosevelt Ritchie DO Send Report To: Reason for exam: Chest Pain SINUS RHYTHM NORMAL ECG WARNING: DATA QUALITY MAY AFFECT INTERPRETATION 01/10/21 no sign change Physician [employer] Mechanic: Jose Fountain M.D. ECG HEART RATE: 98 /min ECG RR INTERVAL: 607 ms ECG P DURA TION: 110 ms ECG QRS DURATION: 82 ms ECG PA INTERVAL: 153 ms ECG QT INTERVAL: 324 ms ECG QTC INTERVAL: 390 ms Q-T dispersion: ms ECG P AXIS: 54 deg ECG QRS AXIS: 62 deg ECG T AXIS: 69 deg REPORT SIGNATURE ON FILE 03/08/21945 Reported By: Jose Fountain MD, [facility] <<Signature on File>> Exam Date/Time: 03/07/21 1122 Order #: [id number] Dictation Date/Time: 03/08/21945 Transcribed Date/Time: 03/08/21945 Medicaid Analyst: VALDO Name Value Range Interpretation Code Description Data Ekta rce(s) Supporting Document(s) ID Date Data Source [id number] 03/05/2021 09:06:00 AM EDT [facility] spital Procedure Performed By: [facility] [address] [place] [address] Director: Asuncion Zuñiga MD . QUANTITY: >100,000/mL {ESCHERICHIA COLI} ESCHERICHIA COLISCT Name Value Range Interpretation Code Description Data Ekta rce(s) Supporting Document(s) ID Date Data Source [id number] 03/05/2021 09:06:00 AM EDT [facility] spital Procedure Performed By: [facility] [address] [place] [address] Director: Asuncion Zuñiga MD . QUANTITY: >100,000/mL {ESCHERICHIA COLI} ESCHERICHIA COLISCT Name Value Range Interpretation Code Description Data [facility] rce(s) Supporting Document(s) Ampicillin Susceptible. Indicates for microbiol ogy susceptibilities only. [facility] Cefazolin Susceptible. Indicates for microbiol ogy susceptibilities only. [facility] Cefepime Susceptible. Indicates for microbiol ogy susceptibilities only. [facility] ESBL - [facility] Ceftazadime Susceptible. Indicates for m icrobiology susceptibilities only. [facility] Ceftriaxone Susceptible. Indicates for m icrobiology susceptibilities only. [facility] Ciprofloxacin Susceptible. Ind icates for microbiology susceptibilities only. [facility] Ertapenem Susceptible. Indicates for microbiol ogy susceptibilities only. [facility] Gentamicin Susceptible. Indicates for microbiol ogy susceptibilities only. [facility] Levofloxacin Susceptible. Indicates for m icrobiology susceptibilities only. [facility] Nitrofurantoin Susceptible. Ind icates for microbiology susceptibilities only. [facility] Pipercillin/Tazobactam Susceptib le. Indicates for microbiology susceptibilities only. [facility] Trimeth/Sulfamethoxazole Suscept ible. Indicates for microbiology susceptibilities only. [facility] ID Date Data Source [id number] 03/05/2021 08:51:00 AM EDT [facility] Procedure Performed By: [facility] [address] [place] [address] Director: Asuncion Zuñiga MD . Name Value Range Interpretation Code Description Data [facility] rce(s) Supporting Document(s) Urine Culture [facility] ospital ID Date Data Source [id number] 03/05/2021 08:51:00 AM EDT [facility] Procedure Performed By: [facility] [address] [place] [address] Director: Asuncion Zuñiga MD . Name Value Range Interpretation Code Description Data Ekta rce(s) Supporting Document(s) Ampicillin Susceptible. Indicates for microbiol ogy susceptibilities only. [facility] Cefazolin Susceptible. Indicates for microbiol ogy susceptibilities only. [facility] Cefepime Susceptible. Indicates for microbiol ogy susceptibilities only. [facility] Ceftazadime Susceptible. Indicates for m icrobiology susceptibilities only. [facility] Ceftriaxone Susceptible. Indicates for m icrobiology susceptibilities only. [facility] Ciprofloxacin Susceptible. Ind icates for microbiology susceptibilities only. [facility] Ertapenem Susceptible. Indicates for microbiol ogy susceptibilities only. [facility] Gentamicin Susceptible. Indicates for microbiol ogy susceptibilities only. [facility] Levofloxacin Susceptible. Indicates for m icrobiology susceptibilities only. [facility] Nitrofurantoin Susceptible. Ind icates for microbiology susceptibilities only. [facility] Pipercillin/Tazobactam Susceptib le. Indicates for microbiology susceptibilities only. [facility] Trimeth/Sulfamethoxazole Suscept ible. Indicates for microbiology susceptibilities only. [facility] ID Date Data Source [id number] 03/03/2021 11:00:00 AM EDT [facility] Name Value Range Interpretation Code Description Data Ekta rce(s) Supporting Document(s) Color,Urine Colorl-Dk Y Normal (applies to non-numeric res ults) [facility] Clarity,Urine Clear Normal (applies to non-numeric re sults) [facility] Specific [place],Urine 1.005-1.030 Normal (applies to non- numeric results) [facility] pH,Urine 5.0-8.0 Normal (applies to non-numeric resul ts) [facility] Protein,Urine Negative Normal (applies to non-numeric re sults) [facility] Glucose,Urine Negative Normal (applies to non-numeric re sults) [facility] Ketones,Urine Negative Normal (applies to non-numeric re sults) [facility] Blood,Urine Negative Normal (applies to non-numeric resu lts) [facility] Bilirubin,Urine Negative Normal (applies to non-numeric results) [facility] Urobilinogen,Urine 0.2-1.0 Normal (applies to non-numer ic results) [facility] Leukocyte Esterase,Urine Negative Normal (applies to non -numeric results) [facility] Nitrite,Urine Negative Normal (applies to non-numeric re sults) [facility] RBC,Urine None Seen Normal (applies to non-numeric resul ts) [facility] WBC,Urine None Seen [place] [facility] Casts,Urine None Seen Normal (applies to non-numeric resu lts) [facility] Squamous Cells,Urine None Seen [facility] Bacteria,Urine None Seen [facility] ital ID Date Data Source [id number] 02/11/2021 09:40:00 AM EDT [facility] Name Value Range Interpretation Code Description Data Ekta rce(s) Supporting Document(s) FibroTest Score Normal (applies to non-numeric results) [facility] FibroTest Stage Normal (applies to non-numeric results) [facility] FibroTest Interpretation Normal (applies to non -numeric results) [facility] FibroTest estimates liver fibrosis Fibr oTest Score Stage Interpretation 0.00-0.21 F0 no fibrosis 0.21-0.27 F0-F1 no fibrosis 0.27-0.31 F1 minimal fibrosis 0.31-0.48 F1-F2 minimal fibrosis 0.48-0.58 F2 moderate fibrosis 0.58-0.72 F3 advanced fibrosis 0.72-0.74 F3-F4 advanced fibrosis 0.74-1.00 F4 severe fibrosis (Cirrhosis) NashTest 2 Score Normal (applies to non-numeric results) [facility] NashTest 2 Grade Normal (applies to non-numeric results) [facility] NashTest 2 Interpretation Normal (applies to no n-numeric results) [facility] NashTest 2 estimates non-alcoholic steat ohepatitis (KARIMI) NashTest 2 Score Grade Interpretation 0.00-0.25 N0 no KARIMI 0.25-0.50 N1 mild KARIMI 0.50-0.75 N2 moderate KARIMI 0.75-1.00 N3 severe KARIMI SteatoTest 2 Score Normal (applies to non-numer ic results) [facility] SteatoTest 2 Grade Normal (applies to non-numer ic results) [facility] SteatoTest 2 Interpretation Normal (applies to non-numeric results) [facility] RESULT: moderate/severe steatosis (34-10 0%) SteatoTest 2 estimates liver steatosis. A stage of S1 or S2S3 is considered clinically significant. SteatoTest 2 Score Stage Interpretation 0.00-0.40 S0 no steatosis (<5%) 0.40-0.55 S1 mild steatosis (5-33%) 0.55-1.00 S2S3 moderate/severe steatosis (34-100%) KARIMI-FibroTest Comment Normal (applies to non-n umeric results) [facility] The reliability of results is dependent on compliance with the preanalytical and analytical conditions recommended by [employer]. The tests have to be deferred for: acute hemolysis, acute hepatitis, acute inflammation, extra hepatic cholestasis. The advice of a specialist should be sought for interpretation in chronic hemolysis and Gilbert's syndrome. The test interpretation is not validated in liver transplant patients. Isolated extreme values of one of the components should lead to caution in interpreting the results. In case of discordance between a biopsy result and a test, it is r ecommended to seek advice of a specialist. The causes of these discordances could be due to a flaw of the test or to a flaw in the biopsy: i.e. a liver biopsy has a 33% variability rate for one fibrosis stage. FibroTest is interpretable for chronic hepatitis B and C, alcoholic and non alcoholic steatosis. SteatoTest 2 is interpretable for chronic hepatitis B and C, and non alcoholic steatosis. NashTest 2 is interpretable for assessing the severity of KARIMI in patients with non alcoholic fatty liver disease (NAFLD). ADDITIONAL INFORMATION This test was developed and its performance characteristics determined by [facility] in a manner consistent with CLIA requirements. This test has not been cleared or approved by the U.S. Food and Drug Administration. [facility] Serial Number [id number] Normal (appli es to non-numeric results) [facility] Apolipoprotein A1,S 143 mg/dL >=140 Normal (applies to non-nume yahir results) [facility] Hzewk-8-Mjrxwhwsotyts,S 171 mg/dL 100 - 280 Normal ( applies to non-numeric results) [facility] Haptoglobin,S 200 mg/dL 30 - 200 Normal (applies to non-numeric re sults) [facility] Alanine Amino (ALT),S 37 U/L 7-45 Normal (applies to non-nu meric results) [facility] Gamma Glutamyltrans (GGT),S 46 U/L 5 - 36 Very abnormal (applies to non-numeric units [facility] Total Bilirubin,S <=1.2 Normal (applies to non-numeri c results) [facility] Aspartate Aminotrans (AST),S 26 U/L 8 - 43 Nor mal (applies to non-numeric results) [facility] Total Cholesterol,S 201 mg/dL Very abnormal (applies to n on-numeric units [facility] REFERENCE VALUE------ Desirable: < 200 Borderline high: 200 - 239 High: > or = 240 Triglycerides,S 197 mg/dL Very abnormal (applies to non-n umeric units [facility] REFERENCE VALUE------ Normal: <150 Borderline high: 150-199 High: 200-499 Very high: > or =500 Fasting Glucose,Plas 92 mg/dL 70 - 100 Normal (applies to n on-numeric results) [facility] Test Performed by: [facility] [address] [place] [address] [employer] Driver: Willi Rendon M.D. Ph.D.; CLIA# [id number] Test Performed by: [facility] [address] [place] [address] [employer] Driver: Willi Rendon M.D. Ph.D.; CLIA# [id number] ID Date Data Source [id number] 02/11/2021 08:51:00 AM EDT [facility] Name Value Range Interpretation Code Description Data Ekta rce(s) Supporting Document(s) FibroTest Score Normal (applies to non-numeric results) [facility] FibroTest Stage Normal (applies to non-numeric results) [facility] FibroTest Interpretation Normal (applies to non -numeric results) [facility] FibroTest estimates liver fibrosis Fibr oTest Score Stage Interpretation 0.00-0.21 F0 no fibrosis 0.21-0.27 F0-F1 no fibrosis 0.27-0.31 F1 minimal fibrosis 0.31-0.48 F1-F2 minimal fibrosis 0.48-0.58 F2 moderate fibrosis 0.58-0.72 F3 advanced fibrosis 0.72-0.74 F3-F4 advanced fibrosis 0.74-1.00 F4 severe fibrosis (Cirrhosis) NashTest 2 Score Normal (applies to non-numeric results) [facility] NashTest 2 Grade Normal (applies to non-numeric results) [facility] NashTest 2 Interpretation Normal (applies to no n-numeric results) [facility] NashTest 2 estimates non-alcoholic steat ohepatitis (KARIMI) NashTest 2 Score Grade Interpretation 0.00-0.25 N0 no KARIMI 0.25-0.50 N1 mild KARIMI 0.50-0.75 N2 moderate KARIMI 0.75-1.00 N3 severe KARIMI SteatoTest 2 Score Normal (applies to non-numer ic results) [facility] SteatoTest 2 Grade Normal (applies to non-numer ic results) [facility] SteatoTest 2 Interpretation Normal (applies to non-numeric results) [facility] RESULT: moderate/severe steatosis (34-10 0%) SteatoTest 2 estimates liver steatosis. A stage of S1 or S2S3 is considered clinically significant. SteatoTest 2 Score Stage Interpretation 0.00-0.40 S0 no steatosis (<5%) 0.40-0.55 S1 mild steatosis (5-33%) 0.55-1.00 S2S3 moderate/severe steatosis (34-100%) KARIMI-FibroTest Comment Normal (applies to non-n umeric results) [facility] The reliability of results is dependent on compliance with the preanalytical and analytical conditions recommended by [employer]. The tests have to be deferred for: acute hemolysis, acute hepatitis, acute inflammation, extra hepatic cholestasis. The advice of a specialist should be sought for interpretation in chronic hemolysis and Gilbert's syndrome. The test interpretation is not validated in liver transplant patients. Isolated extreme values of one of the components should lead to caution in interpreting the results. In case of discordance between a biopsy result and a test, it is r ecommended to seek advice of a specialist. The causes of these discordances could be due to a flaw of the test or to a flaw in the biopsy: i.e. a liver biopsy has a 33% variability rate for one fibrosis stage. FibroTest is interpretable for chronic hepatitis B and C, alcoholic and non alcoholic steatosis. SteatoTest 2 is interpretable for chronic hepatitis B and C, and non alcoholic steatosis. NashTest 2 is interpretable for assessing the severity of KARIMI in patients with non alcoholic fatty liver disease (NAFLD). ADDITIONAL INFORMATION This test was developed and its performance characteristics determined by [facility] in a manner consistent with CLIA requirements. This test has not been cleared or approved by the U.S. Food and Drug Administration. [facility] Serial Number [id number] Normal (appli es to non-numeric results) [facility] Apolipoprotein A1,S 143 mg/dL >=140 Normal (applies to non-nume yahir results) [facility] Alqdz-8-Ynustzojnoqtr,S 171 mg/dL 100 - 280 Normal ( applies to non-numeric results) [facility] Haptoglobin,S 200 mg/dL 30 - 200 Normal (applies to non-numeric re sults) [facility] Alanine Amino (ALT),S 37 U/L 7-45 Normal (applies to non-nu meric results) [facility] Gamma Glutamyltrans (GGT),S 46 U/L 5 - 36 [facility] Total Bilirubin,S <=1.2 Normal (applies to non-numeri c results) [facility] Aspartate Aminotrans (AST),S 26 U/L 8 - 43 Nor mal (applies to non-numeric results) [facility] Total Cholesterol,S 201 mg/dL [facility] REFERENCE VALUE------ Desirable: < 200 Borderline high: 200 - 239 High: > or = 240 Triglycerides,S 197 mg/dL [facility] REFERENCE VALUE------ Normal: <150 Borderline high: 150-199 High: 200-499 Very high: > or =500 Fasting Glucose,Plas 92 mg/dL 70 - 100 Normal (applies to n on-numeric results) [facility] Test Performed by: [facility] [address] [place] [address] [employer] Driver: Willi Rendon M.D. Ph.D.; CLIA# [id number] Test Performed by: [facility] [address] [place] [address] [employer] Driver: Willi Rendon M.D. Ph.D.; CLIA# [id number] ID Date Data Source [id number] 02/07/2021 12:03:00 PM EDT [facility] Name Value Range Interpretation Code Description Data Ekta rce(s) Supporting Document(s) Bilirubin,Total 0.1-1.9 Normal (applies to non-numeric results) [facility] Bilirubin,Direct 0.05-0.20 Normal (applies to non-numeric results) [facility] SGOT(AST) 24 U/L 15-37 Normal (applies to non-numeric resul ts) [facility] Note the following drug interference: Sulfasalazine Sulfapyridine Can see falsely depressed Can see falsely elevated result with up to 10% results with up to 10% decrease in measurement increase in measurement Recommend patients be collected for this test prior to administration of either drug. SGPT(ALT) 51 U/L 12-78 Normal (applies to non-numeric resul ts) [facility] Note the following drug interference: Sulfasalazine Sulfapyridine Can see falsely depressed Can see falsely elevated result with up to 29% results with up to 10% decrease in measurement increase in measurement Recommend patients be collected for this test prior to administration of either drug. Alkaline Phosphatase 112 U/L 38-126 Normal (applies to non-num salome results) [facility] can increase Alkaline Phosp le vels up to 2 times the normal adult value. Normal values for children and adolescents are 2 to 3 times the normal adult value. Total Protein 6.0-8.2 Normal (applies to non-numeric re sults) [facility] Albumin Level 3.4-5.0 Normal (applies to non-numeric re sults) [facility] ID Date Data Source [id number] 02/06/2021 12:42:00 PM EDT [facility] Name Value Range Interpretation Code Description Data Ekta rce(s) Supporting Document(s) White Blood Count 4.8-10.8 Normal (applies to non-numeri c results) [facility] Red Blood Count 3.68-5.22 Normal (applies to non-numeric results) [facility] Hemoglobin 11.2-15.7 Normal (applies to non-numeric resul ts) [facility] Hematocrit 34.1-44.9 Normal (applies to non-numeric resul ts) [facility] Mean Corpuscular Volume 81-99 Normal (applies to non- numeric results) [facility] Mean Corpuscular Hemoglobin 27.0-33.0 Normal (appli es to non-numeric results) [facility] Mean Corpuscular HGB Conc 32.0-36.0 Normal (applies to no n-numeric results) [facility] Red Cell Distribution Width 11.5-14.5 Above high normal [facility] Platelet Count 287 X10 3/uL 130-450 Normal (applies to non-numeric results) [facility] Mean Platelet Volume 9.5-12.7 Normal (applies to non-num salome results) [facility] Imm Grans% (AUTO) 1 % 0-2 Normal (applies to non-numeri c results) [facility] Neutrophils % (AUTO) 58 % 40-75 Normal (applies to non-num salome results) [facility] Lymphocytes % (AUTO) 34 % 21-46 Normal (applies to non-num salome results) [facility] Monocytes % (AUTO) 6 % 5-12 Normal (applies to non-numer ic results) [facility] Eosinophils % (AUTO) 1 % 1-5 Normal (applies to non-num salome results) [facility] Basophils % (AUTO) 1 % 0-1 Normal (applies to non-numer ic results) [facility] Imm Grans# (AUTO) 0.0-0.5 Normal (applies to non-numeri c results) [facility] Neutrophils # (AUTO) 1.5-8.1 Normal (applies to non-num salome results) [facility] Lymphocytes # (AUTO) 1.0-3.1 Above high normal [facility] Monocytes # (AUTO) 0.2-1.3 Normal (applies to non-numer ic results) [facility] Eosinophils# (AUTO) 0.0-0.5 Normal (applies to non-nume yahir results) [facility] Basophils # (AUTO) 0.0-0.1 Normal (applies to non-numer ic results) [facility] ID Date Data Source [id number] 02/06/2021 12:42:00 PM EDT [facility] Name Value Range Interpretation Code Description Data Ekta rce(s) Supporting Document(s) Erythrocyte Sedimentation ESR 40 mm/hr 0-20 Above high normal [facility] ID Date Data Source [id number] 02/06/2021 12:26:00 PM EDT [facility] Name Value Range Interpretation Code Description Data Ekta rce(s) Supporting Document(s) Sodium 141 mmol/L 137-145 Normal (applies to non-numeric resul ts) [facility] Potassium 3.5-5.1 Normal (applies to non-numeric resul ts) [facility] Chloride 108 mmol/L 98-112 Normal (applies to non-numeric resul ts) [facility] Carbon Dioxide CO2 22.0-33.0 Normal (applies to non-numer ic results) [facility] Anion Gap 4.0-11.0 Normal (applies to non-numeric resul ts) [facility] BUN 20 mg/dL 7-17 Above high normal [facility] Creatinine 0.70-1.20 Below low normal [facility] GFR >60 Normal (applies to non-numeric results) [facility] Result based on MDRD formula. Glucose Level 90 mg/dL 74-99 Normal (applies to non-numeric re sults) [facility] The reference range is only applicable w hen fasting. Calcium-Uncorrected 8.4-10.2 Normal (applies to non-nume yahir results) [facility] Corrected Calcium 8.4-10.2 Normal (applies to non-numeri c results) [facility] Bilirubin,Total 0.2-1.3 Normal (applies to non-numeric results) [facility] SGOT(AST) 24 U/L 14-36 Normal (applies to non-numeric resul ts) [facility] SGPT(ALT) 40 U/L 9-52 Normal (applies to non-numeric resul ts) [facility] Alkaline Phosphatase 106 U/L 38-126 Normal (applies to non-num salome results) [facility] can increase Alkaline Phosp le vels up to 2 times the normal adult value. Normal values for children and adolescents are 2 to 3 times the normal adult value. Total Protein 6.3-8.2 Normal (applies to non-numeric re sults) [facility] Albumin 3.5-5.0 Below low normal [facility] ID Date Data Source [id number] 02/06/2021 12:26:00 PM EDT [facility] Name Value Range Interpretation Code Description Data Ekta rce(s) Supporting Document(s) C-Reactive Protein,Wide Range <3.00 Above high normal [facility] ID Date Data Source [id number] 01/29/2021 11:00:00 AM EDT [facility] Name Value Range Interpretation Code Description Data Ekta rce(s) Supporting Document(s) EGD-Colonoscopy [facility] FEBZAy9lUfBXJuPsOXKhAqvTNYtbVPbnOWUrZ7Q5JMgsCj6GQFotxwAjXHYzXw1+QEGpOA2wuf1kHPMz gMy [file] applications tester+sCo8QyHyhM+MIjkYvXaLn9+toXCiaX6eqfoPYeRol8j3uwoIVO1dQcG/MI7k+/3qVCAJo/Vs3Fv9e [file] E3NBUc3dCf+f8VIiEffZLbsefv5/rgEG39wytyyq7Wr5kk9Wu2gJ1cRXdsaEx2zj+frame aligner/5PxSonjQcEu [file] Cami/ajJW/ono7+F+XudCXX7xPh2DkZkxoFb6LXtjkahODV+dgYbyvzU4SJWJQUsBfnHSq9Y2iTSCqREIu maria del rosario/Gbe2XhloF/3KFqISLgK1ACwBKq/xCogv3/lcXX [file] FOL+Mesh Cutter/1NDL/0Tvnld3oyVGlzHuF28TlcoIzHdanM [file] uvp3UddcRumzqkisxRBRoBTJkoPB+LVKpU2dIMrvsAUQZa90Ietq92/2l+WQGgtOvJ0HNF4oci25/Sarah a3xqV1OFoHthBLZpVHLRo+NLu5TtOYPHp4IKvyanSf aDRAWihG25oHzw7uvo7deWsr8Vsmlnf6rDC95KxGWPI1TAmA5DboxbUEV7JnGGh0yVC4io5jvaF7qv4F +xRAy1L+ffEtEbCYao47jnCQLtxvbJ20QkWtvCliqe7nhNJb1+pBy910meX9ADx4jGIsBuamZDBCsYFl PEsTmywpw2ljLWuBk1YzJgTIlkevA9Zm24Ix4MTCxz M65iKLQpkjh9xmo1qzikpEVR3kB6QwsoZoQg/LG/t77nnYPxAhxj7SC8578hpxfcnLNEdG9ia488cE22 MB804Gv/Kp7oPZYjmkCv2HZOPi6DUSJqHFdPDlunvBx5f0++KnSUVFCB6m3lvQTx3M7ieTObI7M8feUv fRUD3qe9smwpG2cRF4lOqhRGjpIVJcRW9kTmSHNjmI SPDIwU+MDwz1u08KtErUwQ6itRItIBSr3pJDuqCGkODyI/uRZAzd8wPwW2CQAoC/8k5QW953ZbWyQ9V4 8jcJp6Ph6fVWhaqWMo5KWwVq1z6b4xD4k+4iYozsvLmsXUGTTHZzkJQhjW4Amc5ZNQLUs4GREOf5ivtF iTJR5v4n9Jf3hhPaNvNtnoJyg7zohMtvjznpvwzZVz UPNNEWMYt24/JjV9SLys0ZudG7+3QxVWsr1dEP4A6FFVr1BkAZD3q1rGYqp9UKME927c10l0sNkmFUQO 4/w9QjTB4fJCCFqBBvivLhQKOalMNU4C3S2jMdiB4lHC8mz0zKsuL1+5U+fYfGOPm592q0YOGte/h1m7 HiYcevUwkXd1HwRU1u7STODOLo/LKJ0Y2wHsGs+hOW JrPautI203PSO5SHlH+/Beatriz/jrwlKYoqn92DuMFqMx5ztQ7mrSUyonz4ALvgmVrJka2KTdhRF19ZAd+ 2MO75O0Yy1DXMafFthwlTu7fb8E+dDu+9oDDEJkjXE06ipaFvGfAH3g9vcURhYVqvrdKsnycTKGHY9XW 3bGpulLBR3WJP/wdbGiJMrf9/yJbQv8+NYDVJIqqrB 41rFjwXeSLIMHSEUjkjdVWMbHKDmMyWvxTlRBBb11nUMhGguf18LgZvN9RVO2ct7T9bDNrSRoBRjKYw+ WwZHLDhwbVvtyl9/FW17fHUyZYtRWKXh8i4HiEsmKNNtXwBlgSeEfnqpvUpHIdR3T3G6WN6GhGVf7TDS 0vIxrchlVJc8o2/qxdjkqtKjmzU1fIiFSzbugeXYaa p9tFu4QUwaSjmshlDww0uM4+GUcZcqtIPAn7ifvdOH4ZSZTWdsKLhCHRLLhnU3R8ni7FkGsxBvv2vwFl 86kHTi8mZQddltxQpyPiTNhswMVFPhC7cAElrBqngp/0V/gqRAY3pMbbdqH1wcQhKJqfDWt2T1XdnLrc Wceb7Di+FCl5V1dQzWMCVO7/TMHgEfLRbwGCYyaOa6 applications tester+CG5zobSNAsNH+j7dIqrPBBcXkB0Uo72rJ7td9CesurmKMd+UnVOOm4DBZsRspcctvSXXe6aFb3tUr [file] yOKe52nnLBJ8Ba6bB6q52RlgQbUyb8kkY71+PM [file] Jose D+U7Axt8z1x12dgSvDrSXxV/qG8QvqrSqeTnO+eV EkFc/VHRsazO9DngkzqS2VlnJfo3VTQt8iQSQel4O8S4gbWMI8n66Bx1x/7KLBklYM6vB23dpYz7/c+Y H3V9rvSPY87gqeJwtuCqcamYWcp/wCPmO/UJA7L7iM/ktB7bkK9MhnUPxuiTzxbyMZi7oYP3r9/WerWt FnZKOLGIkwxb0VBf/XSNijsz+8NTyx+dM7Ospk628f esMtWZw6a8APTF0fh9X9tQ/8yNeJ4HqTTbsDC6VdnficdHnOsoS0xNEIRhtcXfRABmMyA/K3K/KDF6zS 7Jcz0Jb2T6kZfDYGk77aeEuN0+gTTdlr7gU8FEDOwPLO8k7CBl41XU2sQmbeThtXn7Qpgxm41gidsQ2+ 9+oBohfpPFFppsbYpcnszIlaqh5ucsDA8t5OWs1G7n [file] jAE9JMqQMhza0SXFyCnTU7ygDCer4xypNvP/Maria Del Rosario/ARKmb/FfEJVl4r2TzTH62Z+SkKgkt9H45PpUSN46 [file] kpW//pP/hJh31oHN+4dQXZ9PVDi5QOTzd4b/Yd5+Fender Mechanic [file] 2Qf1PzgrV0cdTnGKd1ABSnOWLSYhCuAB4F ID Date Data Source [id number] 01/24/2021 08:23:00 PM EDT [facility] FAX TO [phone] Name Value Range Interpretation Code Description Data Ekta rce(s) Supporting Document(s) SARS-CoV-2 RNA INHOUSE Negative Normal (applies to non-n umeric results) [facility] THIS IS A [facility] REPORTABLE COMMUNICABLE DISEASE. Testing was performed using the eshtery COVID-19 MDx Assay. This test has been authorized by FDA under an (Emergency Use Authorization) EUA for use by authorized laboratories for individuals who are suspected of COVID-19 by their healthcare provider. This test is only authorized for the duration of the declaration that circumstances exist justifying the authorization of emergency use of in vitro diagnostic tests for detection and/or diagnosis of SARS-CoV-2. Methodology: Endpoint RT-PCR. Fact sheets for this EUA assay can be found at the following links: Providers: https://www.fda.gov/media/501353/download Patients : https://www.fda.gov/media/087787/download THIS IS A [facility] REPORTABLE COMMUNICABLE DISEASE Negative results do not preclude SARS-CoV-2 infection and should not be used as the sole basis for patient management decisions. Negative results must be combined with clinical observations,patient history, and epidemiological information. ID Date Data Source [id number] 01/24/2021 07:30:00 AM EDT [facility] Name Value Range Interpretation Code Description Data Ekta rce(s) Supporting Document(s) Respiratory specimen severe acute respir atory syndrome coronavirus 2 (SARS-CoV-2) RNA Negative (qualifier value) [facility] This lab was ordered by Beverley raymond and reported by . ID Date Data Source [id number] 01/22/2021 02:06:00 PM EDT [facility] Imaging Services Department Imaging Report [address], [place] [address] %(RAD)RES..mtdd.print.filter("line") Name: ANGELIA ARTHUR : 1965 Age/Sex: 55F Ordering Provider: NGUYEN Parr Med Rec #: [id number] Reg Status: [facility] ER Room #: Date of Service: 01/21/21 Report Number: [id number] cc:Valerie Tarango MD Send Report To: [id number] MRI/MRI Lum Spine No Contrast Reason for exam: Saddle anesthesia, increased rectal and urinary incontinence FINDINGS: Severe degenerative spondylosis is seen. MODIC type degenerative changes are noted adjacent to L5-S1 intervertebral disc space and L2-L3 intervertebral disc space. Acute fracture, destructive osseous lesion, dislocation or pars defect is not seen. L5-S1, spondylosis and broad based disc protrusion resulted in marked neuroforaminal narrowing and moderate lateral recess narrowing. L4-5, L3-4 and L2-3, spondylosis and broad based disc protrusion resulted in mild central canal stenosis, moderate neuroforaminal narr owing and moderate lateral recess narrowing. Spondylosis and disc bulging noted at L1-2 and T12-L1 which resulted in mild neuroforaminal narrowing and mild lateral recess narrowing without central canalstenosis. Distal spinal cord abnormality not seen. IMPRESSION: Marked degenerative spondylosis. Mild central canal stenosis, moderate neuroforaminal narrowing and lateral recess narrowing L2-3, L3-4, and L4-5. Lateral recess narrowing and neuroforaminal narrowing at T12-L1, L1-2 andL5-S1 without central canal stenosis as above. Distal spinal cord abnormality not seen. Time portable performed: Fluoroscopy time in seconds: Number of Exposures: Contrast Agent in ml: Method of Administration: REPORT SIGNATURE ON FILE Reported By: Fransisca Pulliam MD <Electronically signed by Fransisca Pulliam MD> 01/24/21 1141 Dictation Date/Time: 01/21/21 1631 Transcribed Date/Time: 01/22/21 1406 Medicaid Analyst: CAMPOS Name Value Range Interpretation Code Description Data Ekta rce(s) Supporting Document(s) ID Date Data Source [id number] 01/20/2021 06:06:00 PM EDT [facility] Name Value Range Interpretation Code Description Data Ekta rce(s) Supporting Document(s) FESAT Iron result 173 ug/dL 37-170 [facility] Test Performed By: [facility] [address] [place] [address] Director: Sandra Zuñiga MD FESAT TIBC result 367 ug/dL 265-497 Normal (applies to non-numeri c results) [facility] Test Performed By: [facility] [address] [place] [address] Director: Sandra Zuñiga MD FESAT %Iron Saturation result 12.0-55.0 No rmal (applies to non-numeric results) [facility] Test Performed By: [facility] [address] [place] [address] Director: Sandra Zuñiga MD ID Date Data Source [id number] 01/20/2021 06:06:00 PM T [facility] Name Value Range Interpretation Code Description Data Ekta rce(s) Supporting Document(s) Ferritin result 263 ng/mL 11.1-264.0 Normal (applies to non-numeric results) [facility] Test Performed By: [facility] [address] [place] [address] Director: Sandra Zuñiga MD ID Date Data Source [id number] 01/20/2021 02:14:00 PM EDT [facility] Name Value Range Interpretation Code Description Data Ekta rce(s) Supporting Document(s) Hemoglobin A1c Above high normal [facility] Reference Range Normal: < 5.7% Pr ediabetes: 5.7-6.4% Diabetes: > 6.5% Estimated Avg Glucose 134 mg/dL 126-240 Normal (applies to non-numeric results) [facility] ID Date Data Source [id number] 01/20/2021 01:36:00 PM EDT [facility] Value Range Interpretation Code Description Data Ekta rce(s) Supporting Document(s) Vitamin D, Total 30.0-100.0 Below low normal [facility] ID Date Data Source [id number] 01/20/2021 05:20:[address] [facility] Value Range Interpretation Code Description Data Ekta rce(s) Supporting Document(s) Iron FE Level 173 ug/dL 37-[address] [facility] Test Performed By: [facility] [address] [place] [address] Director: Sandra Zuñiga MD Total Iron Binding Capacity 367 ug/dL 265-497 Norm al (applies to non-numeric results) [facility] Test Performed By: [facility] [address] [place] [address] Director: Sandra Zuñiga MD %Iron Saturation 12.0-55.0 Normal (applies to non-numeric results) [facility] Test Performed By: [facility] [address] [place] [address] Director: Sandra Zuñiga MD ID Date Data Source [id number] 01/20/2021 05:20:[address] [facility] Value Range Interpretation Code Description Data Ekta rce(s) Supporting Document(s) Ferritin 263 ng/mL 11.1-264.0 Normal (applies to non-numeric resul ts) [facility] Test Performed By: [facility] [address] [place] [address] Director: Sandra Zuñiga MD ID Date Data Source [id number] 01/15/2021 07:21:00 AM EDT [facility] Name: ANGELIA ARTHUR : 1965 Age/Sex: 55F Ordering Provider: Estrada Colindres MD Med Rec #: [id number] Reg Status: DEP REF Room #: Date of Service: 01/13/21 Report Number: [id number] cc:Valerie Tarango MD; Estrada Colindres MD Send Report To: [id number] XRP/XR Fluoro Plain Reason for exam: MYASTHENIA GRAVIS FINDINGS: Following access by the Radiology Nurse, a small amount of contrast is injected. This outlines the port, but does not extend into the catheter. Clinical correlation is advised for the need for further evaluation and management. Fluoroscopy time in seconds: 98 Number of Exposures: 4 Time Portable Image Performed: Contrast Agent in ml: Method of Administration: REPORT SIGNATURE ON FILE Reported By: Ga Mendez MD <Electronically signed by Ga Mendez MD> 01/15/21 1100 Dictation Date/Time: 01/13/21 1744 Transcribed Date/Time: 01/15/21 0721 Medicaid Analyst: MACHO Name Value Range Interpretation Code Description Data Ekta rce(s) Supporting Document(s) ID Date Data Source [id number] 01/16/2021 06:49:00 PM EDT [facility] Name Value Range Interpretation Code Description Data Ekta rce(s) Supporting Document(s) Calprotectin,Fecal result 90 ug/g 0-120 Normal (applies to non-numeric results) [facility] Concentration Interpretation Follo w-Up <16 - 50 ug/g Normal None >50 -120 ug/g Borderline Re-evaluate in 4-6 weeks >120 ug/g Abnormal Repeat as clinically indicated Performed at: [address] [id number] Team Otr Truck Driver: Favio Mcknight MD, Phone: [phone] ID Date Data Source [id number] 01/16/2021 06:47:00 PM EDT [facility] Name Value Range Interpretation Code Description Data Ekta rce(s) Supporting Document(s) Calprotectin,Stool(LCI) result 90 ug/g 0-120 N ormal (applies to non-numeric results) [facility] Concentration Interpretation Follo w-Up <16 - 50 ug/g Normal None >50 -120 ug/g Borderline Re-evaluate in 4-6 weeks >120 ug/g Abnormal Repeat as clinically indicated Performed at: [address] [id number] Team Otr Truck Driver: Favio Mcknight MD, Phone: [phone] ID Date Data Source [id number] 01/10/2021 10:26:00 AM EDT [facility] Name: ANGELIA ARTHUR [facility] Rec #: [id number] : 1965 Age/Sex: 55F Date of Service: 01/10/21 PHYSICIAN CHART Physician Documentation [facility] Name: Angelia Arthur Age: 55 yrs Sex: Female : 1965 Arrival Date: 01/10/2021 Time: 10:26 Bed 13 Private MD: Valerie Tarango L ED Physician Roosevelt Ritchie Disposition: 01/10 19:42 Attestation: I discussed the plan of care with [facility] Practice Provider and agree with what they have documented. I have reviewed and agree with the nursing records. HPI: 13:43 This 55 yrs old Female presents to ER via Walk-In hm2 with complaints of Abdominal Pain. 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 Patient states her symptoms started approximately 4 days ago. She thought perhaps she was having a urinary tract infection given increased urinary frequency, but denies dysuria. She tells me she has not really felt well all week. She had a port placed on this past Wednesday, 3 days ago negative COVID routine testing. She had her humira infusion the following day, Wednesday. Labs obtained which revealed elevated white blood cell count, which is not entirely abnormal for her. She had a tele visit with her primary care at that time who was made aware of her symptoms. She had an iron infusion yesterday. She continues to feel discomfort in the right lower part of her abdomen. She also notes rectal pressure which is somewhat abnormal for her. She states she is having regular bowel movements and pain is not exacerbated with bowel movements . 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 gabapentin 300 mg Oral tab three times a day 2. omeprazole 40 mg oral cpDR 1 cap once daily 3. remicade infusions 4. ropinirole 1 mg Oral tab 1 tab I mg in am and in afternoon and 2 mg at bedtime 5. Ferrlicet Infusions-First dose yesterday 6. losartan 100 mg oral tab 1 tab once daily 7. Restasis 0.05 % ophthalmic (eye) dpet 1 drop every 12 hours - PMHx: ARTHRITIS; CHRONIC BACK PAIN; GERD; liver failure; LUPUS; myasthenia gravis; psoriasis arthritis; pulmonary emboli ([id number]); - PSHx: Port Placement; R-hip repair; R-knee repair; spinal fusion; - Med Reconciliation:: Green Alert: The patient's med list is complete to the best of the nurse's/provider's knowledge. Medications reviewed, completed by nurse verbally from patient/family. - Immunization history: The patients tetanus immunization is up to date. Flu vaccine is up to date. Pneumococcal vaccine is up to date. COVID-19 Vaccine. - Advance directive: Yes, Patient's health proxy is Ирина Kaplan. - Family History:: mother : unknown medical history. Father : unknown medical history. - Social History: Smoking status (Tobacco): Patient states they are a former tobacco smoker, quit smoking Quit-2017 ago. No barriers to communication noted, The patient speaks fluent Ivorian. ROS: 14:00 Constitutional: Negative for fever. Abdomen/GI: Positive hm2 for abdominal pain, See HPI. : See HPI. All other systems are negative. Exam: 14:39 Constitutional: This is a well developed, well nourished hm2 patient who is awake, alert, and in no acute distress. Head/Face: Normocephalic, atraumatic. 14:39 Cardiovascular: Rate: normal, Rhythm: regular, Heart sounds: normal. 14:39 Respiratory: the patient does not display signs of respiratory distress, Respirations: normal, Breath sounds: are normal. 14:39 Abdomen/GI: Inspection: abdomen appears normal, Palpation: soft, mild abdominal tenderness, in the posterior aspect of right lateral abdomen and right lower quadrant. 14:39 Skin: Appearance: Color: pink, Temperature: warm, Moisture: dry. 14:39 Neuro: Orientation: appropriate for stated age, no acute changes, Mentation: appropriate for stated age, no acute changes. 14:39 Psych: Behavior/mood is pleasant. Vital Signs: 11:01 BP 143 / 92; Pulse 92; Resp 18; Temp 98.1(TE); Pulse Ox 98% kendrick on R/A; Weight 113.4 kg (R); Height 5 ft. 3 in. (160.02 cm) (R); 13:18 BP 135 / 81; Pulse 72; Resp 18; Pulse Ox 98% on R/A; Pain rjh1 6/10; 15:06 BP 129 / 85; Pulse 75; Resp 18; Pulse Ox 98% on R/A; Pain rjh1 5/10; 11:01 Body Mass Index 44.29 (113.40 kg, 160.02 cm) kendrick MDM: 11:11 Patient medically screened. 2 15:00 Case presented to: Dr. Roosevelt Ritchie. Data reviewed: vital 2 signs, nurses notes, old medical records, lab test result(s), EKG, radiologic studies. ED course: Patient has been stable while here. She presents today due to evaluation of right-sided flank pain, right lower quadrant pain, rectal pressure that has been present for the last 4 to 5 days. She initially thought she had a bladder infection due to her symptoms. Upon arrival, patient's vital signs are stable, afebrile and overall nontoxic in appearance. She has tenderness in her right lower quadrant, but is not peritoneal. Upon rectal exam, there is no obvious external abnormality, no obvious internal abnormality, she denies focal tenderness but does report feeling radiating pain in her right lower quadrant upon rectal examination. Her labs demonstrate leukocytosis of 14, which is downtrending from her labs 3 days ago which was 20. CRP is only minimally elevated at 11.9. Her renal function is normal. UA is clear, no evidence of infection. Renal ultrasound obtained, which is negative. Patient does report that her primary care does not want her to have any more CAT scans, I discussed with the patient at length - as the UA/US are nondiagnostic, but still reporting pain/rectal pressure and we discussed risks/benefits of CT scan. He has agreed to a CT scan, which reveals no acute findings. No perirectal abnormalities noted. No nephrolithiasis or hydronephrosis noted. Discussed the findings with the patient. We discussed the importance of follow- up with her primary care, supportive care measures. We discussed indication for emergent return, patient was understanding.. 15:01 ECG: The ECG on this patient demonstrates Other Normal rc3 sinus rhythm, rate 73, normal axis, normal intervals no ST elevations or depressions. 01/10 11:32 Order name: CRP - Wide Range; Complete Time: 13:34 2 01/10 11:32 Order name: Cbc With Auto Differential; Complete Time: :342 01/10 14:57 Interpretation: WBC 14.4; HGB 13.2; RDW 16.0; PLT 286. [facility] 01/10 11:32 Order name: Comprehensive Metabolic Prof.; Complete Time: 2 13:34 01/10 11:32 Order name: Lipase; Complete Time: 13:34 2 01/10 11:32 Order name: UA.; Complete Time: 13:34 2 01/10 11:32 Order name: Troponin I; Complete Time: 13:34 2 01/10 11:32 Order name: Collect Urine - Clean Catch; Complete Time: hm2 12:14 01/10 11:32 Order name: Iv Saline Lock; Complete Time: 12:14 2 01/10 12:40 Order name: Emergency Room EKG Order - Use EKG Work-Up 2 /Quick Select; Complete Time: 13:37 01/10 12:40 Order name: Cardiology EKG Interpretation - Choose Reason [facility] for Test 01/10 12:40 Order name: Renal - US [facility] 01/10 14:25 Order name: Ct Abdomen & Pelvis with Con 2 01/10 11:32 Order name: NPO; Complete Time: 12:14 2 Dispensed Medications: 13:41 Drug: Ofirmev 1000 mg [Ofirmev 1,000 mg/100 mL (10 mg/mL) [facility] intravenous solution] Route: IVPB; Site: right antecubital; 13:51 Follow up: Response: Pain is decreased; IV Status: [facility] Completed infusion; IV Intake: 100ml Disposition Summary: 01/10/21 15:10 Discharge Ordered Location: Home/Self Care [facility] Condition: Good [facility] Diagnosis - Abdominal Pain, Right Lower Quadrant 2 Followup: 2 - With: Emergency Department - When: As needed - Reason: Fever > 101 F, Trouble breathing, Worsening of condition Followup: 2 - With: Valerie Tarango MD - When: 2 - 3 days - Reason: Further diagnostic work-up, Recheck today's complaints, Continuance of care Discharge Instructions: - Discharge Summary Sheet hm2 - Abdominal Pain, Adult 2 Forms: - Medication Reconciliation [facility] Signatures: Dispatcher [employer] Roosevelt Irizarry DO DO rc3 Carisa Adkins PA-C PAHayes [facility] Winsome Marino RN Hamilton Stock RN RN rj Corrections: (The following items were deleted from the chart) 11:10 11:07 Home Meds: Vitamin B-12 Oral tab; kendrick marks Name Value Range Interpretation Code Description Data Ekta rce(s) Supporting Document(s) ID Date Data Source [id number] 01/10/2021 10:26:00 AM EDT [facility] Name: ANGELIA ARTHUR [facility] Rec #: [id number] : 1965 Age/Sex: 55F Date of Service: 01/10/21 DISPOSITION SUMMARY Discharge Summary [facility] Name:Angelia Arthur Emergency Department Age:55 yrs Sex:Female :1965 Arrival:01/10/2021 10:26 Departure Date01/10/2021 Departure Time15:40 Private MD:Valerie Tarango MD Outcome: Discharge Location: Home/Self Care Condition: Good Chief Complaint: Abdominal Pain Diagnosis: Abdominal Pain, Right Lower Quadrant Prescriptions: Follow up: Valerie Tarango MD Custom Notes: <span>Rest and stay well-hydrated.</span>
<span>Stick to bland diet while you are symptomatic.</span>
<span>Your labs, urine, imaging are reassuring today.</span>
<span>It is important that you follow-up with your primary care, if you continue to have problems I would like you to see the specialist - both GI as well as your prn physical therapist. </span>
<span>Return to the emergency room for any new or worsening symptoms as we discussed.</span> Attending Physician: Roosevelt Ritchie DO Private MD: Valerie Tarango MD Mid Level Provider: Carisa Adkins PA-C Followup Physician: Valerie Tarango MD Orders: CRP - Wide Range, Cbc With Auto Differential, Comprehensive Metabolic Prof., Lipase, UA., Troponin I, Collect Urine - Clean Catch, Iv Saline Lock, Lactic Acid, Emergency Room EKG Order - Use EKG Work-Up /Quick Select, Cardiology EKG Interpretation - Choose Reason for Test, Renal - US, Ofirmev, Ct Abdomen & Pelvis with Con, NPO Discharge Instruction: Discharge Summary Sheet, Abdominal Pain, Adult, Medication Reconciliation Name Value Range Interpretation Code Description Data Ekta rce(s) Supporting Document(s) ID Date Data Source [id number] 01/10/2021 10:26:00 AM EDT [facility] Name: ANGELIA ARTHUR [facility] Rec #: [id number] : 1965 Age/Sex: 55F Date of Service: 01/10/21 NURSE CHART Nurse's Notes [facility] Name: Angelia Arthur Age: 55 yrs Sex: Female : 1965 Arrival Date: 01/10/2021 Time: 10:26 Bed 13 Private MD: Valerie Tarango L Diagnosis: Abdominal Pain, Right Lower Quadrant Presentation: 01/10 10:42 Acuity: Urgent - 3 kendrick 11:03 Transition of care: patient was not received from another [facility] setting of care. Presenting complaint: Patient states - Started Wednesday with right back pain that radiates into the RLQ. Significant Rectal pressure. Has had normal BM. States Nauseated with fatigue, chills, sweats. No appetite. Have you travelled in the last 30 days? No. Have you had contact with an individual with a confirmed diagnosis of Ebola or COVID-19? No. 11:03 Method Of Arrival: Walk-In [facility] Triage Assessment: 11:05 SEPSIS SCREEN: A Confirmed or Suspected Infection is kendrick Unknown, their temperature is not <96.8 or >100.9, their heart rate is >90, their RR is not >20, it is unknown if their WBC is <4 or >12, the patient does not have new or unexplained altered mental status. SIRS or Sepsis criteria is not present. Suicide Screening: Have you had thoughts of harming yourself or others? No. The patient appears to be uncomfortable, The patient is cooperative. Patient states the pain is currently a 6 / 10 The patient complains of pain in right mid back and right low back. The pain radiates to posterior aspect of right lateral abdomen, anterior aspect of right lateral abdomen and right lower quadrant. The patient states the pain began 4days ago. The quality of the pain is described as aching, The pain is described as continuous. GI: Last BM was January 10, 2021. Last meal was January 09, 2021. at 17:00. 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 gabapentin 300 mg Oral tab three times a day 2. omeprazole 40 mg oral cpDR 1 cap once daily 3. remicade infusions 4. ropinirole 1 mg Oral tab 1 tab I mg in am and in afternoon and 2 mg at bedtime 5. Ferrlicet Infusions-First dose yesterday 6. losartan 100 mg oral tab 1 tab once daily 7. Restasis 0.05 % ophthalmic (eye) dpet 1 drop every 12 hours - PMHx: ARTHRITIS; CHRONIC BACK PAIN; GERD; liver failure; LUPUS; myasthenia gravis; psoriasis arthritis; pulmonary emboli ([id number]); - PSHx: Port Placement; R-hip repair; R-knee repair; spinal fusion; - Med Reconciliation:: Green Alert: The patient's med list is complete to the best of the nurse's/provider's knowledge. Medications reviewed, completed by nurse verbally from patient/family. - Immunization history: The patients tetanus immunization is up to date. Flu vaccine is up to date. Pneumococcal vaccine is up to date. COVID-19 Vaccine. - Advance directive: Yes, Patient's health proxy is Ирина Kaplan. - Family History:: mother : unknown medical history. Father : unknown medical history. - Social History: Smoking status (Tobacco): Patient states they are a former tobacco smoker, quit smoking Quit-2017 ago. No barriers to communication noted, The patient speaks fluent Ivorian. Screenin:15 AUDIT 1. How often do you have a drink containing alcohol? rjh1 Never (0 points). Drug Abuse Screening Test: 1. Have you used drugs other than those required for medical reasons? No (0 points), screen is complete, no risk. Abuse screen: Denies threats or abuse. Nutritional screening: The patient is obese. The patient has IV access (20 points). The patient is low risk (Abdi Scale= <24 pts). Assessment: 12:16 Patient states the pain is currently a 6 / 10 The patient rjh1 complains of pain in right flank i nto right abdomen. The patient appears to be uncomfortable, The patient is cooperative. GI: Bowel sounds present X 4 quads. On palpation, the abdomen is soft, X 4 quads Patient has diffuse abdominal tenderness, pt sts right flank pain started on Wednesday, sts getting worse and becoming more constant,also complain of rectal pressure, sts mild, tolerable nausea, vomited once a couple days ago, denies diarrhea or constipation. : pt sts she is usually somewhat incontinent of urine but more so this past week, sts urinary frequency and a slight burning sensation when urinating. Vital Signs: 11:01 BP 143 / 92; Pulse 92; Resp 18; Temp 98.1(TE); Pulse Ox 98% kendrick on R/A; Weight 113.4 kg (R); Height 5 ft. 3 in. (160.02 cm) (R); 13:18 BP 135 / 81; Pulse 72; Resp 18; Pulse Ox 98% on R/A; Pain [facility] 03/20; 15:06 BP 129 / 85; Pulse 75; Resp 18; Pulse Ox 98% on R/A; Pain [facility] 02/17; 11:01 Body Mass Index 44.29 (113.40 kg, 160.02 cm) kendrick Vitals: 13:18 pt requested and received warm blanket, requesting pain rjh1 meds, provider notified. 13:41 Ofimev infusing as ordered for pt's c/o 6/10, right sided rjh1 abdominal pain. 15:06 pt c/o 5/10 right side abdominal pain, PA notified, rjh1 awaiting PA re-eval, call rosales within reach. ED Course: 10:27 Patient arrived in ED. mlr 10:43 Triage completed. kendrick 11:03 Valerie Tarango MD is Private Physician. kendrick 11:06 Arm band placed on right wrist. Patient placed in exam room kendrick Patient has correct armband on for positive identification. 11:10 Hamilton Ellison, CECY is Primary Nurse. kendrick 11:11 Carisa Adkins PA-C is PHCP. hm2 11:11 Roosevelt Ritchie DO is Attending Physician. hm2 12:15 Labs drawn by ED staff. Urine collected. Clean catch [facility] specimen. Inserted peripheral IV: 20 gauge in right antecubital area and blood collected. 13:07 Radiology: The patient returned from ultrasound at 13:08. rj 15:10 Valerie Tarango MD is Referral Physician. hm2 15:37 No procedures ordered. Discontinued IV intact, bleeding rjh1 controlled, pressure dressing applied, No redness/swelling at site. Administered Medications: 13:41 Drug: Ofirmev 1000 mg [Ofirmev 1,000 mg/100 mL (10 mg/mL) [facility] intravenous solution] Route: IVPB; Site: right antecubital; 13:51 Follow up: Response: Pain is decreased; IV Status: rjh1 Completed infusion; IV Intake: 100ml Intake: 13:51 IV: 100ml; Total: 100ml. rj Outcome: 15:10 Discharge ordered by . hm2 15:37 Patient verbalized understanding of disposition rj instructions. Patient has no functional deficits. 15:37 Patient discharged to home ambulatory. 15:37 Condition: stable 15:37 Discharge instructions given to patient, No prescriptions given. 15:37 Vitals are Complete in accordance with Emergency Department Policy. 15:40 Patient left the ED. rjh1 01/11 08:48 24 hour call back completed with no concerns vocalized. sm6 Signatures: Tami Blanca RN RN [email or web address] Carisa Adkins PA-C PAHayes 2 Winsome Marino RN Hamilton Stock RN RN rj Destiney Velásquez Corrections: (The following items were deleted from the chart) 01/10 11:10 11:07 Home Meds: Vitamin B-12 Oral tab; kendrick marks Name Value Range Interpretation Code Description Data Ekta rce(s) Supporting Document(s) ID Date Data Source [id number] 01/13/2021 07:08:00 AM EDT [facility] Name: ANGELIA ARTHUR : 1965 Age/Sex: 55F Ordering Provider: NGUYEN Neal Med Rec #: [id number] Reg Status: [facility] Room #: Date of Service: 01/10/21 Report Number: [id number] cc:Valerie Tarango MD; NGUYEN Neal Send Report To: [id number] CT/CT Abdomen & Pelvis w Con Reason for exam: RLQ ABDO PAIN, RIGHT FLANK PAIN, RECTAL PRESSURE AND PAIN Comparison: 11/02. FINDINGS: Lung bases: Clear. Liver: Mild steatosis without focal hepatic lesion. Patent portal and hepatic veins. Hepatomegaly up to 22.4 cm. Biliary system: Normal gallbladder. No biliary dilatation. Pancreas: Normal. Spleen: Normal. Adrenal glands: Normal. Kidneys: Symmetric enhancement with normal contour. No mass, stone, or hydronephrosis. No ureteral stone. Urinary bladder: Unremarkable, other than a small amount of nondependent gas, presumably related to instrumentation. Pelvic organs: Normal. Bowel: Normal caliber. No obstruction. No wall thickening or edema. No perirectal abnormality. Peritoneum: No free air. No ascites. Lymph nodes: No adenopathy. Vessels: Normal inferior vena cava and abdominal aorta. Abdominal wall: Small fat-containing periumbilical hernia. No complications. Bones: No acute or suspicious osseous abnormality. L5- S1 degenerative disc disease. IMPRESSION: NO ACUTE FINDINGS IN THE ABDOMEN OR PELVIS. NO UROLITHIASIS, HYDRONEPHROSIS, OR PERIRECTAL ABNORMALITY. While performing the above CT exam, the following dose reduction techniques wereused: *Automated exposure control *Adjustment of the mA and/or kV according to patient size *Use of iterative reconstruction technique CT Dose in mSv: 13.192 Contrast Agent in ml: Isovue 300 100 Method of Administration: Intraveneous REPORT SIGNATURE ON FILE Reported By: Den Navas MD <Electronically signed by Den Navas MD> 01/13/21 0945 Dictation Date/Time: 01/10/21 0344 Transcribed Date/Time: 01/13/21 0708 Transcri ptionist: WOLF Name Value Range Interpretation Code Description Data Ekta rce(s) Supporting Document(s) ID Date Data Source [id number] 01/12/2021 04:06:00 PM EDT [facility] Name: ANGELIA ARTHUR : 1965 Age/Sex: 55F Ordering Provider: NGUYEN Neal Med Rec #: [id number] Reg Status:[facility] Room #: Date of Service: 01/10/21 Report Number: [id number] cc: Valerie Tarango MD; NGUYEN Neal Send Report To: Reason for exam: ABDOMINAL PAIN SINUS RHYTHM Physician [employer] Mechanic: Yair Portillo M.D. ECG HEART RATE: 73 /min ECG RR INTERVAL: 814 ms ECG P DURATION: 111 ms ECG QRS DURATION: 80 ms ECG PA INTERVAL: 154 ms ECG QT INTERVAL: 361 ms ECG QTC INTERVAL: 383 ms Q-T dispersion: ms ECG P AXIS: 55 deg ECG QRS AXIS: 69 deg ECG T AXIS: 57 deg REPORT SIGNATURE ON FILE 01/12/21 1606 Reported By: Yair Portillo MD <<Signature on File>> Exam Date/Time: 01/10/21 1316 Order #: [id number] Dictation Date/Time: 01/12/21 1606 Transcribed Date/Time: 01/12/211605 Medicaid Analyst: VALDO Wade Value Range Interpretation Code Description Data Ekta rce(s) Supporting Document(s) ID Date Data Source [id number] 01/13/2021 10:24:00 AM EDT [facility] Name: ANGELIA ARTHUR : 1965 Age/Sex: 55F Ordering Provider: NGUYEN Neal Med Rec #: [id number] Reg Status: [facility] Room #: Date of Service: 01/10/21 Report Number: [id number] cc:Valerie Tarango MD; NGUYEN Neal Send Report To: [id number] US/US Renal Ultrasound Reason for exam: FLANK PAIN, RADIATES TO GROIN Comparison: 11/02/20. FINDINGS: Both kidneys are normal contour and echotexture. No cortical thinning. No renal stones. No hydroneph rosis. No renal mass or cyst. Right kidney measures 10.5 cm. Sagittal length of the left kidney measuring 10.9 cm in sagittal length. Color flow documented to the both kidneys. The urinary bladder is limitedly evaluated and unremarkable. No filling defects. Bladder is only partially distended. Bladder volume 218 cc. IMPRESSION: KIDNEYS AND BLADDER UNREMARKABLE. NO RENAL STONES OR HYDRONEPHROSIS. REPORT SIGNATURE ON FILE Reported By: Andres Juarez DO <Electronically signed by Andres Juarez DO> 01/14/21 1209 Dictation Date/Time: 01/10/21 0147 Transcribed Date/Time: 01/13/21 1024 Medicaid Analyst: WOLF Name Value Range Interpretation Code Description Data Ekta rce(s) Supporting Document(s) ID Date Data Source [id number] 01/10/2021 01:15:00 PM EDT [facility] Name Value Range Interpretation Code Description Data [facility] rce(s) Supporting Document(s) Troponin I 0.000-0.045 Normal (applies to non-numeric resu lts) [facility] ID Date Data Source [id number] 01/10/2021 01:13:00 PM EDT [facility] Name Value Range Interpretation Code Description Data [facility] rce(s) Supporting Document(s) Sodium 138 mmol/L 137-145 Normal (applies to non-numeric resul ts) [facility] Potassium 3.5-5.1 Normal (applies to non-numeric resul ts) [facility] Chloride 106 mmol/L 98-112 Normal (applies to non-numeric resul ts) [facility] Carbon Dioxide CO2 22.0-33.0 Normal (applies to non-numer ic results) [facility] Anion Gap 4.0-11.0 Below low normal [facility] BUN 17 mg/dL 7-17 Normal (applies to non-numeric resul ts) [facility] Creatinine 0.70-1.20 Below low normal [facility] GFR 90 mL/min >60 Normal (applies to non-numeric resul ts) [facility] Result based on MDRD formula. Glucose Level 87 mg/dL 74-99 Normal (applies to non-numeric re sults) [facility] The reference range is only applicable w hen fasting. Calcium-Uncorrected 8.4-10.2 Normal (applies to non-nume yahir results) [facility] Corrected Calcium 8.4-10.2 Normal (applies to non-numeri c results) [facility] Bilirubin,Total 0.2-1.3 Normal (applies to non-numeric results) [facility] SGOT(AST) 22 U/L 14-36 Normal (applies to non-numeric resul ts) [facility] SGPT(ALT) 35 U/L 9-52 Normal (applies to non-numeric resul ts) [facility] Alkaline Phosphatase 116 U/L 38-126 Normal (applies to non-num salome results) [facility] can increase Alkaline Phosp le vels up to 2 times the normal adult value. Normal values for children and adolescents are 2 to 3 times the normal adult value. Total Protein 6.3-8.2 Normal (applies to non-numeric re sults) [facility] Albumin 3.5-5.0 Normal (applies to non-numeric resul ts) [facility] ID Date Data Source [id number] 01/10/2021 01:13:00 PM EDT [facility] Name Value Range Interpretation Code Description Data Ekta rce(s) Supporting Document(s) C-Reactive Protein,Wide Range <3.00 Above high normal [facility] ID Date Data Source [id number] 01/10/2021 01:13:00 PM EDT [facility] Name Value Range Interpretation Code Description Data Ekta rce(s) Supporting Document(s) Lipase 121 U/L 73-393 Normal (applies to non-numeric resul ts) [facility] ID Date Data Source [id number] 01/10/2021 12:57:00 PM EDT [facility] Name Value Range Interpretation Code Description Data Ekta rce(s) Supporting Document(s) Color,Urine Yellow Normal (applies to non-numeric resu lts) [facility] Clarity,Urine Clear Normal (applies to non-numeric re sults) [facility] Specific [place],Urine 1.001-1.030 Normal (applies to non- numeric results) [facility] PH,Urine 4.6-8.0 Normal (applies to non-numeric resul ts) [facility] Protein,Urine Negative Normal (applies to non-numeric re sults) [facility] Glucose,Urine (UA) Negative Normal (applies to non-numer ic results) [facility] Ketones,Urine Negative Normal (applies to non-numeric re sults) [facility] Blood,Urine Negative Normal (applies to non-numeric resu lts) [facility] Bilirubin,Urine Negative Normal (applies to non-numeric results) [facility] Urobilinogen,Urine Norm 0.2-1 Normal (applies to non-numer ic results) [facility] Leukocyte Esterase,Urine Negative Normal (applies to non -numeric results) [facility] Nitrite,Urine Negative Normal (applies to non-numeric re sults) [facility] ID Date Data Source [id number] 01/10/2021 12:55:00 PM EDT [facility] Name Value Range Interpretation Code Description Data Ekta rce(s) Supporting Document(s) White Blood Count 4.8-10.8 Above high normal [facility] Red Blood Count 3.68-5.22 Normal (applies to non-numeric results) [facility] Hemoglobin 11.2-15.7 Normal (applies to non-numeric resul ts) [facility] Hematocrit 34.1-44.9 Normal (applies to non-numeric resul ts) [facility] Mean Corpuscular Volume 81-99 Below low normal [facility] Mean Corpuscular Hemoglobin 27.0-33.0 Normal (appli es to non-numeric results) [facility] Mean Corpuscular HGB Conc 32.0-36.0 Normal (applies to no n-numeric results) [facility] Red Cell Distribution Width 11.5-14.5 Above high normal [facility] Platelet Count 286 X10 3/uL 130-450 Normal (applies to non-numeric results) [facility] Mean Platelet Volume 9.5-12.7 Normal (applies to non-num salome results) [facility] Imm Grans% (AUTO) 1 % 0-2 Normal (applies to non-numeri c results) [facility] Neutrophils % (AUTO) 66 % 40-75 Normal (applies to non-num salome results) [facility] Lymphocytes % (AUTO) 26 % 21-46 Normal (applies to non-num salome results) [facility] Monocytes % (AUTO) 6 % 5-12 Normal (applies to non-numer ic results) [facility] Eosinophils % (AUTO) 2 % 1-5 Normal (applies to non-num salome results) [facility] Basophils % (AUTO) 0 % 0-1 Normal (applies to non-numer ic results) [facility] Imm Grans# (AUTO) 0.0-0.5 Normal (applies to non-numeri c results) [facility] Neutrophils # (AUTO) 1.5-8.1 Above high normal [facility] Lymphocytes # (AUTO) 1.0-3.1 Above high normal [facility] Monocytes # (AUTO) 0.2-1.3 Normal (applies to non-numer ic results) [facility] Eosinophils# (AUTO) 0.0-0.5 Normal (applies to non-nume yahir results) [facility] Basophils # (AUTO) 0.0-0.1 Normal (applies to non-numer ic results) [facility] ID Date Data Source [id number] 01/08/2021 05:06:00 PM EDT [facility] Name Value Range Interpretation Code Description Data Ekta rce(s) Supporting Document(s) White Blood Count 4.8-10.8 Above high normal [facility] Red Blood Count 3.68-5.22 Normal (applies to non-numeric results) [facility] Hemoglobin 11.2-15.7 Normal (applies to non-numeric resul ts) [facility] Hematocrit 34.1-44.9 Normal (applies to non-numeric resul ts) [facility] Mean Corpuscular Volume 81-99 Below low normal [facility] Mean Corpuscular Hemoglobin 27.0-33.0 Below low normal [facility] Mean Corpuscular HGB Conc 32.0-36.0 Normal (applies to no n-numeric results) [facility] Red Cell Distribution Width 11.5-14.5 Above high normal [facility] Platelet Count 332 X10 3/uL 130-450 Normal (applies to non-numeric results) [facility] Mean Platelet Volume 9.5-12.7 Normal (applies to non-num salome results) [facility] Imm Grans% (AUTO) 1 % 0-2 Normal (applies to non-numeri c results) [facility] Neutrophils % (AUTO) 77 % 40-75 Above high normal [facility] Lymphocytes % (AUTO) 15 % 21-46 Below low normal [facility] Monocytes % (AUTO) 6 % 5-12 Normal (applies to non-numer ic results) [facility] Eosinophils % (AUTO) 0 % 1-5 Below low normal [facility] Basophils % (AUTO) 0 % 0-1 Normal (applies to non-numer ic results) [facility] Imm Grans# (AUTO) 0.0-0.5 Normal (applies to non-numeri c results) [facility] Neutrophils # (AUTO) 1.5-8.1 Above high normal [facility] Lymphocytes # (AUTO) 1.0-3.1 Normal (applies to non-num salome results) [facility] Monocytes # (AUTO) 0.2-1.3 Normal (applies to non-numer ic results) [facility] Eosinophils# (AUTO) 0.0-0.5 Normal (applies to non-nume yahir results) [facility] Basophils # (AUTO) 0.0-0.1 Normal (applies to non-numer ic results) [facility] ID Date Data Source [id number] 01/08/2021 05:06:00 PM EDT [facility] Name Value Range Interpretation Code Description Data Ekta rce(s) Supporting Document(s) Erythrocyte Sedimentation ESR 22 mm/hr 0-20 Above high normal [facility] ID Date Data Source [id number] 01/08/2021 03:00:00 PM EDT [facility] Name Value Range Interpretation Code Description Data Ekta rce(s) Supporting Document(s) Sodium 138 mmol/L 137-145 Normal (applies to non-numeric resul ts) [facility] Potassium 3.5-5.1 Normal (applies to non-numeric resul ts) [facility] Chloride 105 mmol/L 98-112 Normal (applies to non-numeric resul ts) [facility] Carbon Dioxide CO2 22.0-33.0 Normal (applies to non-numer ic results) [facility] Anion Gap 4.0-11.0 Normal (applies to non-numeric resul ts) [facility] BUN 15 mg/dL 7-17 Normal (applies to non-numeric resul ts) [facility] Creatinine 0.70-1.20 Below low normal [facility] GFR >60 Normal (applies to non-numeric results) [facility] Result based on MDRD formula. Glucose Level 154 mg/dL 74-[address] [facility] The reference range is only applicable w hen fasting. Calcium-Uncorrected 8.4-10.2 Normal (applies to non-nume yahir results) [facility] Corrected Calcium 8.4-10.2 Normal (applies to non-numeri c results) [facility] Bilirubin,Total 0.2-1.3 Normal (applies to non-numeric results) [facility] SGOT(AST) 13 U/L 14-36 Below low normal [facility] SGPT(ALT) 37 U/L 9-52 Normal (applies to non-numeric resul ts) [facility] Alkaline Phosphatase 121 U/L 38-126 Normal (applies to non-num salome results) [facility] can increase Alkaline Phosp le vels up to 2 times the normal adult value. Normal values for children and adolescents are 2 to 3 times the normal adult value. Total Protein 6.3-8.2 Normal (applies to non-numeric re sults) [facility] Albumin 3.5-5.0 Below low normal [facility] ID Date Data Source [id number] 01/08/2021 03:00:00 PM EDT [facility] Name Value Range Interpretation Code Description Data Ekta rce(s) Supporting Document(s) C-Reactive Protein,Wide Range <3.00 Above high normal [facility] ID Date Data Source [id number] 01/07/2021 03:09:00 PM EDT [facility] Name: ANGELIA ARTHUR : 1965 Age/Sex: 55F Attending Physician: Estrada Colindres MD [facility] Rec #: [id number] Admission Date: Room #: Admitting Physician: Report Number: [id number] _ cc: Valerie Tarango MD Send Report To: Report Status - Signed OPERATIVE NOTE DATE OF SURGERY: January 07, 2021 INDICATIONS FOR SURGERY: The patient is a 55-year-old female who presents with a malfunctioning port. Sheundergoes frequent Remicade injections and has very poor peripheral access and therefore requires long-term IV access for these treatments. This will be the patient's fourth PowerPort. PREOPERATIVE DIAGNOSIS: Malfunctioning PowerPort. POSTOPERATIVE DIAGNOSIS: Malfunctioning PowerPort. OPERATION: Removal of PowerPort and insertion of PowerPort. SURGEON: Estrada Colindres MD. ANESTHESIA: MAC. ESTIMATED BLOOD LOSS: None. FLUIDS: 300 ml. SPECIMENS: None. DRAINS: None. COMPLICATIONS: None. CONDITION: Good. OPERATIVE PROCEDURE: The patient was brought into the operating room and placed on the operating table in the supine position. After the induction of IV sedation the left anterior chest wall where the current port was in place was then prepped and draped in the usual sterile manner. Mediport tape was used to gently retract the breast downward as well to help improve exposure. Then 1% Lidocaine with Epinephrine was then used to create a field block around the old incisional scarand port. The old scar was opened and the underlying port was dissected out. Theport was accessed after being exteriorized from the pocket and there was noted to be good blood return and the port flushed easily. The port was removed from the catheter tubing and a guidewire was then carefully reinserted through the catheter tubing again without difficulty with the tip of the wire noted to be inthe plane of the superior vena cava. The catheter tubing was removed and using fluoroscopic guidance the new catheter tubing was cut at 21.5 cm and attached tothe port with a locking hub and flushed with saline. The dilator was then placedover the guidewire. The inner sheath and wire were removed and the catheter tubing was advanced again without resistance with the tip of the tube noted to be in the plane of the superior vena cava. The external sheath was peeled away and discarded and the subcutaneous fat just beneath the skin was thinned out with cautery with the thought process that it may be that the depth of the catheter within the adipose tissue was giving nursing some difficulty. With thishaving been completed the port was much easier to palpate within the subcutaneous pocket. The port was then secured in place with sutures at 11 o'clock, 1 o'clock and 6 o'clock positions buttressing the port in the preferred position. The wound was then closed in layers using interrupted 3-0 Vicryl for the subcutaneous tissues and subcuticular 4-0 Monocryl for the skin and covered with skin glue. The port was accessed and had good blood return. It was flushed with Heparinized saline. The patient was then transferred back to day surgery for a postprocedure chest x-ray. REPORT SIGNATURE ON FILE Dictated By: Estrada Colindres MD <Electronically signed by Estrada Colindres MD> 01/07/21 1814 Dictation Date/Time: 01/07/21 1443 Transcribed Date/Time: 01/07/21 1509/SANDEEPMAURICE Name Value Range Interpretation Code Description Data Ekta rce(s) Supporting Document(s) ID Date Data Source [id number] 01/09/2021 11:58:00 AM EDT [facility] Name: ANGELIA ARTHUR : 1965 Age/Sex: 55F Ordering Provider: Estrada Colindres MD Med Rec #: [id number] Reg Status: [facility] Room #: Date of Service: 01/07/21 Report Number: [id number] cc:Valerie Tarango MD; Estrada Colindres MD Send Report To: [id number] XRP/XR Chest Xray Portable Reason for exam: power port insertion Comparison is made to 10/16/2020 FINDINGS: Left subclavian central line is in good position; the catheter terminates near to the cavoatrial junction. No complication. The heart is normal in size. Pulmonary vessels are normal. Clear lungs. No pleural effusion. Unchanged mild right hemidiaphragm elevation. IMPRESSION: No complication following power port placement. Fluoroscopy time in seconds: Number of Exposures: Time Portable Image Performed: 1500 Contrast Agent in ml: Method of Administration: REPORT SIGNATURE ON FILE Reported By: Den Navas MD <Electronically signed by Den Navas MD> 01/10/21 1029 Dictation Date/Time: 01/07/21 1516 Transcribed Date/Time: 01/09/21 1158 Medicaid Analyst: CAMPOS Name Value Range Interpretation Code Description Data Ekta rce(s) Supporting Document(s) ID Date Data Source [id number] 01/08/2021 08:03:00 AM EDT [facility] Name: ANGELIA ARTHUR : 1965 Age/Sex: 55F Ordering Provider: Estrada Colnidres MD Med Rec #: [id number] Reg Status: [facility] Room #: Date of Service: 01/07/21 Report Number: [id number] cc:Valerie Tarango MD; Estrada Colindres MD Send Report To: [id number] XRP/XR C-Arm No Charge Reason for exam: POWER PORT FINDINGS FROM OP REPORT: The patient was brought into the operating room and placed on the operating table in the supine position. After the induction of IV sedation the left anterior chest wall where the current port was in place was then prepped and draped in the usual sterile manner. Mediport tape was used to gently retract the breast downward as well to help improve exposure. Then 1% Lidocaine with Epinephrine was then used to create a field block around the old incisional scarand port. The old scar was opened and the underlying port was dissected out. Theport was accessed after being exteriorized from the pocket and there was noted to be good blood return and the port flushed easily. The port was removed from the catheter tubing and a guidewire was then carefully reinserted through the catheter tubing again without difficulty with the tip of the wire noted to be inthe plane of the superior vena cava. The catheter tubing was removed and using fluoroscopic guidance the new catheter tubing was cut at 21.5 cm and attached tothe port with a locking hub and flushed with saline. The dilator was then placedover the guidewire. The inner sheath and wire were removed and the catheter tubing was advanced again without resistance with the tip of the tube noted to be in the plane of the superior vena cava. The external sheath was peeled away and discarded and the subcutaneous fat just beneath the skin was thinned out with cautery with the thought process that it may be that the depth of the catheter within the adipose tissue was giving nursing some difficulty. With thishaving been completed the port was much easier to palpate within the subcutaneous pocket. The port was then secured in place with sutures at 11 o'clock, 1 o'clock and 6 o'clock positions buttressing the port in the preferred position. The wound was then closed in layers using interrupted 3-0 Vicryl for the subcutaneous tissues and subcuticular 4-0 Monocryl for the skin and covered with skin glue. The port was accessed and had good blood return. It was flushed with Heparinized saline. The patient was then transferred back to day surgery for a postprocedure chest x-ray. Fluoroscopy time in seconds: 0 Number of Exposures: Time Portable Image Performed: Contrast Agent in ml: Method of Administration: REPORT SIGNATURE ON FILE Reported By: Estrada Colindres MD 01/08/21 0804 Dictation Date/Time: 01/07/21 1443 Transcribed Date/Time: 01/08/21 0803 Medicaid Analyst: SILVINO Name Value Range Interpretation Code Description Data Ekta rce(s) Supporting Document(s) ID Date Data Source [id number] 01/07/2021 11:15:00 AM EDT [facility] Name Value Range Interpretation Code Description Data Ekta rce(s) Supporting Document(s) Respiratory specimen severe acute respir atory syndrome coronavirus 2 (SARS-CoV-2) RNA Negative (qualifier value) [facility] This lab was ordered by [facility] layne and reported by [facility]. ID Date Data Source [id number] 01/07/2021 11:44:00 AM EDT [facility] Negative results should be treated as pr esumptive and, if inconsistent with clinical signs and symptoms or necessary for patient management, should be tested with different authorized or cleared molecular tests. Negative results do not preclude SARS-CoV-2 infection and should not be used as the sole basis for patient management decisions. Negative results should be considered in the context of a patients recent exposures, history and the presence of clinical signs and symptoms consistent with COVID-19. This test has not been FDA cleared or approved; this test has been authorized by FDA under an Emergency Use Authorization for use by laboratories certified under the Clinical Laboratory Improvement Amendments of 1988 (CLIA), 42 U.S.C. 263a, to perform moderate complexity/high complexity tests and at the Point of Care (POC), i.e., in patient care settings operating under a CLIA Certificate of Waiver, Certificate of Compliance, or Certificate of Accreditation. Factsheets for healthcare providers: https://www.fda.gov/media/189613/download Factsheets for patients: https://www.fda.gov/media/227759/download The ID NOW Instrument is a rapid molecular in vitro diagnostic test utilizing an isothermal nucleic acid amplification technology intended for the qualitative detection of nucleic acid from the SARS-CoV-2 viral RNA. THIS IS A STATE REPORTABLE COMMUNICABLE DISEASE. Manual entry verified by Guerda Perez 01/07/21 1144 Test Performed By: [facility] [address] [place] [address] Director: Sandra Zuñiga MD Name Value Range Interpretation Code Description Data Ekta rce(s) Supporting Document(s) ID Date Data Source [id number] 01/03/2021 05:19:00 PM EDT [facility] Name: ANGELIA ARTHUR : 1965 Age/Sex: 55F Ordering Provider: Win Ray MD [facility] Rec #: [id number] Reg Status: [facility] REF Room #: Date of Service: 01/02/21 Report Number: [id number] cc:Valerie Tarango MD; Win Ray MD Send Report To: [id number] XRP/XR Modified Barium Swallow Reason for exam: DYSFUNCTION OF BOTH EUSTACHIAN TUBES FINDINGS: No significant pharyngeal penetration or aspiration is noted during the course of the study. Incidental note is made of some prominent osteophytes at C5-6 and to a lesser extent C4-5 and possibly C6- 7. There is slightly slowerprogress of the more solid substances at this level. Please see speech therapy report for additional information and follow up recommendations. IMPRESSION: As above. Fluoroscopy time in seconds: 330 Number of Exposures: 1 Time Portable Image Performed: Contrast Agent in ml: Method of Administration: REPORT SIGNATURE ON FILE Reported By: Sarah Sauer MD <Electronically signed by Sarah Sauer MD> 01/06/21 1218 Dictation Date/Time: 01/02/21 1603 Transcribed Date/Time: 01/03/21 1719 Medicaid Analyst: CAMPOS Name Value Range Interpretation Code Description Data Ekta rce(s) Supporting Document(s) ID Date Data Source [id number] 12/31/2020 01:15:00 PM EDT [facility] Name Value Range Interpretation Code Description Data Ekta rce(s) Supporting Document(s) Follow Up [facility] HGFJMp6vNtYREnUcQXAxMouLPSfhQVbkANAjX9I1QIowDl4HZJhpwdCrYJZcGg4+OVUwSZ5bdt9bDIZc gMy [file] S/AK2/gN4/crjVIIxyfhHDmHvHN2xvXd/return to service inspector/5yPid [file] FquQlcZZAlFSkM1gf5+RjuYuKrMrUG0+UTCugmB10vkU82u7/Jose Guadalupe/AoS+y7evNUoum/SHAT/A2LPWRJa [file] Manuel tG23nEzFvc89tsBXz8ivvdh1YnqMpxSxBcA8fuwKXD 3Ju9xu9iuQmJzMqhckat23lT0ozgsC5qB1uoklMO/yJCdw+fqIl/kCBrWZ/BHDnXYCMDkVSdYSBMRJiv uD0tkzDKrtzCUL+AYoNvrXZliff9bGAmX03vCuAFXF2+d471DOvqY7NLCdgKCclmNChsXiVqkINak6UT okmhTWCL37UNng935Wn2tqxxONTHLJGg0J4fJhhHz/ 1HbzWE5sU+TYp1XQPM6WnD4wsU7X/zlcwsoPvKzVcF8c58Gks89BbdtiGrvqSyZBg7lzAcijRFJivsp0 N4KX9ksU28NZzd+UAmaEBvuy672MvS08UQj4CfKs4ontE4nvWVFHwyO5zJC5JS9MQEPlJgg7ZXxi8/ow fCPXqqISAxYvsmheEJjAFZ3XpdqlwC5mD6IQ3EOC5w mTjTRBJhNTo6N5CzZKWX3MBFxO5LBAXAZXpRTzozkOEYpV/maria isabel/6cxYC5fEGCfqnFmrBBNubsetznjKc [file] of global marketing [file] vNYXjH8yikAT80zz4ch8r0Ij9/dH/3PvuXWq+/u0pau0f3slfe2TWp2MxHORxqqOVcrcGWK9xUvl/janitor helper 3gNnWQeYgX0vuYVNsuG7ae2drHVouXUYG3KRvcwQt2 q3S4/E207Jjjhw7B8Cm3IK2Y5gTKhnrLEvAwxq5gjKpGDK+B1/VL0QCLivKEmTbZ7Q9UXoIcFdGixv8w 4F/9Eb10an9v04MzFj7GlsaWb8Py60eev0yXa01AKnB5rcOrdIhyzXFI924Hi5eFIRpv+pWW9tLBv/3R F9ICnTZCmR/AE2bNQIsJgHebKWwJe2WA16nGncswaB rw4FuN7bADEIUcl463ofvMZv8Uf51Li8HoCXJp1dxC+Jj5TF/wm6sTA7RezK/EbkqbGX+L1EmyDtjETJ V93w5MBypUTWeUu4KTaG4xXUh/N1lGEOr4yHw+a8+RhusKkr/y9NQUv+NTCvDj2n5DYkcfcx/4nx6MoS 5JhGxZbuuD12RElqTf7cMT8DGyM8Rb2MK8hOtiV3oD VPe4ZkGYYFjtrhW35W/DSlvtd65+m4oVWpzWUe85IDyRSE8fRUtUi6khdO9SQzhiXWliRDcZdfgmDie1 GAjKw+UjIUkZv+oIeurA33EYbKU3FAYbK8KBkqgIry/os9GZ/cQFFaJ4i9WTcmaMGhUq79BDsWdz/lw0 VFcPCDhdW4AhQjlBOJn3m24DXcoLQ83oNA/BQgRQhX wpHaP+mqR3p3O+yWIYaNz+iGSixG968R5saP6Cxs1M5K/WSPkr5MzbdBU+bmdVKCgXwEjqNO1E21q8+U VSvJ7DwpfSP91o0CP1iMgg2f6ZJQQ3P9dotKLvOyQ6eVptRWxBBYfNik77rc487coqQq+W2RteOO/Kenneth [file] HEGILczN/A6lFrOQmYijrhjYgs0wITfjGIukz7g76YDwGi1S6++mM9I0FZZTlyQN7wAMVYJoke+8I/Fender Mechanic [file] Hne4UOYXqLLWCfVYOREMn8eNAP0H9DKVFYRpn7yuTK JSLgFSbHzPo6mZCngU0/VhHkIpSiUo42/7AmKth2h06x6/72t9ZZ+odx1VwxcaJDan6GcfPb5+Kve+oP oQYTAe3uNEBWi7YBfFJhI1Ywj37whNekIV712jM0gNfNLGAOBXNeZecDpWi+7pcOnecyNoV6tTEg3RbK MZq7A+jLZKtqcMKXBHSfB8SiVuveGm5AkPXhMkY0mm XQWxZhdU7Q5UIskHF1eqfmDGKCKtphpH/2f7+uiuC4zQPmO/kCSp9vRODc7kD5s1BoydmsuUdhxP0YHU luBJFESj5irSKpvtv3PDLWypua00LMecqvL2ysK+Bdf+V5JagNZ57ftki/O++L4XVl8w0NDpwVfWYiMR yYJ2KLyMmdriAxN/OeG28CVH6Y2fsPf61VwKiOpm0s 6lrJKk5hfcCxr8oQNS7naDYkuFEVTw8bwQx/jH+wkb94HNaZm1Ghvyx7e8IJyTh7EUaDPdubC92fbx6E ZX2bHGM/IR30jgTIENc4/u/ibeNJ0DKUqQoWoq8nBfwpvKe6zn34qthBNce+eeeYdpox9Ib1K3Er+tw+ pBPFntloqqKpTW65IUX0KniLwZKZrP8EKY/TSi2PKh WP3KcSRHKGE+4wbvQuw8D+NSozOAOoFbw9OUyr0ncLHCOE383nvTzGFQ601WM3kyne/hZLjfZeMIUS9f gaming department head+W/x3Jl0ajlZZBx2Gtp2oYNnUN3i5wd2EszM8Ms9OJaRbc6FYFu+qtQqlEJG75qJL9x7Q96C7yd64k [file] 9yH3kPUXrk9Z3mS1baZ2a3zcWcIAhucpTlUOHB+wood floor layer [file] 06/11/kXnYA66EBl2xXbjCDB3UcsxynQGMjYSMxFQ7FLwYTH8mgG/DiZWRGLp+QMoDMjJS8SZ7yPN5Zdv JCl8IlOfNBFhb1+lSWD7LwsRxEVy8010kpJ/XN6ixQ PdTPOzS4vvenMS5FHL6rQVqD9R+YHsaJfAERD96imJi08ofEX0Y38/O3sCS174uk4lW1BiX7u5qq4cGs v+VGhj8LuyivCVVXEe7ze++vNvXXpKH6hyajEJtOwyP7qvBCfQTUfthSasyb6/PC8TjM5rfc0Z24mMhk nhbwDjLL338xn+npTU7TYpXETRjzYAwlv/LAjJkQzu PNvvGpRTWkoPTf4v/oLASOUTbVOQaxVLVFLlLC1ZVT4WU8EqibT506zHSyp7QZ5ZQKr4BNHvk7+gEvwV QjprvdhQ162+h3fGaBDh/4ZdtbrAfbT7dQs6MNaPZjdaN1AqhN/long-term+ZVP676i7FVoTUSj+cZSEe4LuX [file] vanD[facility] HospitalUEgYEiGjoRjbV/K5yIMCdPztX6yTNJhPJFvB6tk5naeXBRLsXRO+tSR8br4wh46LWbTtZ0T29G [file] H2FPPpzvjCm69r/7dxHJqS7KL9XiNeE7VKrad7+ [file] Zz8C7fXKCb5ask+Pérez/QydvKj+0xxJBsB27VIG8sV5cxg74bp3lTa3hSMNdj+H4mz++vypQCfYQ503L1 [file] fvW1vR8UcmMv+ubU8AzOgBjm+giJqJ3vA+4eMcujabI74HF266uyPR4hy6KClt4+lacing cutter+BGZrX09LAawd [file] ILuZjGmUVRnUCSCFV19HPDdGiyZ6Efa+oV0I/jose guadalupe/T [file] 8Zyf8ABjXCJqulVLV4GOe/jmZ38DQWItYO196gMRgE1V/Ox/o0oBQOAegObcRkV/tY/XetbpPhVX+building estimator paEZ5r3fCBOlFjCrPCTyc/VqRg0t2E4oavy7T8JMH6 C2lzTf5Zqx1aqTdd3Ydg15cpQeWHC7rsCKknccDL8LQWO8xPOC9C3V8ZWoSQrr3fje2fdScj0/Z+1EsD +2utmp2K9RopkEFVqwcJPZ839GZpLM5T6TKqO3GMoy4nE7av367e0Oi/OSOlDgXrw0KHyH7gkMhNytr/ WtzVgIi0+W8GCC9Zu1omKHZi/ZpPN4io7+uzzV3+CI +XN9ey7gPsvOhNL5hBxJ8WKz/owlvFn2/tjnMcULuxLq85vdopkW/piKMKUED3m1veO4ws3no0YUjXZq wklwVjaXpEL9LH5C2lLn8+M1MohpHeCWj0AmuJL1qQDB5iLpRdmfftHy9MkQOCPhDvXsUSI4LGYgATef LLsfgEnS065P0z6RIA/FDj0aRK0Xz7DhD9pQxek/DK apSYF98XolHcpJ5X3SX+hBGS8E2YDDfvofbVgprvhhzp1eVwBuEn6lsbGGkSsMj7etWbaL8rV5qAtbvw 3kXZS66Rshiy5XwmlTtoEFVwEb2wF27W593XLTwVzjWolHLVWESgZJAS6koWCJwa7cyfs2GTf4nIUWLN R+4/MgmJWyFTHMTHx5/FPW2AUa0jBmSs5iZQT350rn zixDYeDKbrNEtaXa/Ok0vShrZ3/4HUMMp0b1vfcVKXr+Ld3AzqlgE40ngARqoASbwW+h8uOdOMCbmUo9 N7tz3dS2H5upwbdO8RopN2JrYQlarGjDyFLcS+computer publisher/5DJ0MArIqu6JYlax2HC17LeZcLD8XwD4A1rl5b [file] Nth4cvJOB/9HgPFPuO6YVpynFRuNq4ABtSCgDvbgj4RQA/AlRoMZMBahza0jsAThlrHk5eC8T3sg/birthing nurse [file] IcWuSyWDa6APcAZumnI8w3Zwsd2HIbKW8pNMkHa1b7+12gJoOAjPi4U6cn6tjQ2LSEiNn/Barron/ROL1mOT vKU8UtQv5drWOJcOT8MP8pVDQCLOi4UlW4LY/gtRUtjF9nzkSuVS/ygfvGnSxBb18U9R/UI56z27rV+k auX6RuhuzKthSv+RjazsSAS+31+y2Qc4qfKoRAWIsK dQ47rO1gr1RafrRqQVEawLDzwKUwWNLsM3QQJiPx+CZ27lcfAtDoxAV/ZNmGvq4l1st4WzRad5mSwDsh Colmi9n0sX8+SEfJqayI/mrJ1mQ3OXaZvhTKCTzQwFqtyZ2lXn+pZohPfInsLGbqOTLjeH81QJSiC/l1 QApeoQxV7es7r5J6/FkKoxHdtRGUWw/7hkUIEgFHJ+ /e67L85I0MnS9p1xJ6QEtEqVK7spM6O31qc4mgQ4UmddbOcqqPQKQyhSFZq/0xslrmq1WF2NM5FmzAY4 0Mtm75uNCOvlb86FeBnBStVrE3NROIEGd8o+NSLLoDZGR6VBZkkInG1KCaA4I+lFHvq5UzTdZJwnf3bm jNv152LN0ahJnJlFma/YmetpJdPE380s1ENUw3teN9 RDD8RQb8PJBVQtBU8hM6iLrWL37vk3uwpDfHR+BHcRX6bWlbqKw3s0XkBdm2AiYSM6GUz9HL/QoHP5oC kMtSd6mycP/hldcRczERMtOvbKlREJM8s0GzTU3iTrt56pP/M6gaoqprJu12bvsAEJ75fYmqQFsPpJfY FjhYYw0oMYzTTaiSi6iniWswZPOwYUhcDwLCtI7kQ3 pMqRK7/1+56oZV54hKf6ypchlN2uatB5yJiI/uvcL+dOFloN/vre7RGU9yqQOmuIC5EasYSmtkYULX78 R5m+vtWTghcgPF9ykKKCmc9WjUHUiRjisUCJ5FSxsJ+LV5hUY/Fender Mechanic/7sErlbBAwS63+1aClQIu8mklb2D [file] mOO4nz32QNT/+y7xMv0eLt9gtP9qZdhu8cNr0ZvWH3MszJ7VrIz/food crops farm hand/4riGefJ++u6J/M0EMewUNRut [file] 4Pa0MBvky69rmPppAGm1llF+IK3qzN82aFeqwx137pFkUs3KAje3b7xRuOxVgt/INSULATION WORKER/QU1HXVi+f0RidO [file] SUPERVISOR GARAGE+0Ct97Fn5s66rJ90nDktHYzKj56aBLtcP+UqPTocEohwDKopnaSJJ0YhICA1/Bw6QRhCjczY8gbxD/ [file] [facility]/deJC4VXipx83P1ubY6myiTueb9SnrtOYd407bk3O/rq898yHMdEzYylQP8PuSRKTGCBSNhbZho7m [file] +ustL3641aRtOsWS/721lJhVE0rgdnAWlhUM5+R [file] Gc4+sry+AMHARIC/51DckX7i7B8SKUEx3fOAFsKJNGvvAkvIblqcYQAfTt25gpoVwQs7KcCgEIpmSUHoITuSr 21oZfXZz2sq/MMRtOIYIPgxMYcR6bo7s1qQjVjfL0nITgvXtpt0t5xK+n5QdV9Ys8zEaXU9OLQczg0+n xgoQu1JepqHZi2y4jFQL0IZhtCcG6mGaMwghq5XB6E iA3rU41wzHhdvHrchS926xO7qLFtJPs4HetQlAkIz6ezXSqpHXC3wwyMzD1Sl+ywWna1xdUvX+c2HK2o EkZBr1nlj/ST145b7vDU2+TfwQxjTGMM2tZ38J8LCeiLuuF7sTm8IDNJwvSNJ0bi5+1m+bsp1AedyFXZ K+/4DCFnc5ZggBfKlx7fKN/t12xn2F9s0f+0WRJH5R kjkVyA96pf0WSwX+DLeActNs3DjofiqtSAXouVj7/MFz4yQWgNkXB0iSuumKwFjXqM90l2Sp10m+3NWQ ecnVeDcvA6vsy5FI9YxBYmQx/uFvYtv9PwZzfTUBofak3fDEMWjc0ZOniSYiP+yGi+X8FzcynEBj3Y4+ Oocsul5bgLtnBy/p+TGZAS3pAB630jrxFS15HBRpRt MSO6Q7IPBSiAraaOV3sZ4ahD04objDa9ZTCg/3KfP7nAWEFH6q64Pg0gw3iXQskE/V9uIC82O+R04s87 DtNWGYa6n1eoS9U1Nrc/ELZOls/school bus driver/mechanic+DHDyfAvK3l2IKBcf/J9BTwvhb8eIEnM7uBiYNSK5BzV150bYx [file] et3HaFbU5MjwRW/jwZN7hP12BeuF5cFRvLX9DarVxqt9SyqDL2T5LFHrTfkauJ9akckrW6Avt//[facility]iser [facility] kGBZOsddyN4/rScXysvqwwoqMcFQaVzWar+CobjzQQi7+e1m9SGPUVwNw3L715IALP6AjC9nFsGTg8D5 mh7oE0inz62/WhS6y8vAAz+Fmnasi+gu2E1HEqA5Va q//rSBZffv/XkbS6/iYrQmWztXMvkyMUe2akM82DPdabE9yRHGj/3a3LKuW16j8mPsujoB06HE+elMf1 Bw/zY8HEDbhSsVsdPaBhN0fq5xaDGuDbc1t9lh1/MrIDNVyIHct0HQti81OJ+alYHxbdh27Ju9sh/Bang [file] [facility]//iv8qTMS0TWJ+pYRobtEedlxwFer4QDzAGi [file] PAh3AlD1EKiS09irEPxH15Jl1xo096k+janitor helper+4mXfm8+YBlVj4rISaq5tZg2XNMcwus9MI/IyjPSRfvsS [file] VQXbPMKKDCNDEBAASdFVIIO3YISrQhArTy7mI9Grt5 VkCNTaZHYhNH8xtgToSBWzMe9VgRpbEOQtI1A7cBGuS2zJMFXsQeSiWSG6MBLsGa1upFFvTW1BHkndT0 BgYBBmYASSXGDSAkx+XEJR80KwhhUIOJfiKXKrDIFmAKOucJkNIsauxRNgWIkjZEwCtpiWuXgjHyx8C1 M7tUWFUwBnXq0AKShhTNVJz15G6e1PHR5ej9GfUOOx BLaedzEtKunQDJdfeXQrfFvvUGZPNvH9KMudACiPJpNcRM9V ID Date Data Source [id number] 12/22/2020 12:26:00 PM EDT [facility] Name: ANGELIA ARHTUR : 1965 Age/Sex: 54F Ordering Provider: NGUYEN Marroquin Med Rec #: [id number] Reg Status: DEP REF Room #: Date of Service: 12/22/20 Report Number: [id number] cc:Valerie Tarango MD; NGUYEN Marroquin [facility] [id number] XRP/XR Chest 2 View [Pa & Lat] Reason for exam: COUGH Comparison is made to a prior study of 05/15/20. FINDINGS: A Mediport catheter is seen with the tip in the superior vena cava. The heart, mediastinum and vascularity are within normal limits, No infiltrate or effusion is seen. IMPRESSION: No active disease. Fluoroscopy time in seconds: Number of Exposures: Time Portable Image Performed: Contrast Agent in ml: Method of Administration: REPORT SIGNATURE ON FILE Reported By: Kyree Dixon MD <Electronically signed by Kyree Dixon MD> 12/25/20 1146 Dictation Date/Time: 12/22/20 1053 Transcribed Date/Time: 12/22/20 1226 Medicaid Analyst: UMBERTO Name Value Range Interpretation Code Description Data Ekta rce(s) Supporting Document(s) ID Date Data Source [id number] 12/20/2020 09:28:00 PM EST [facility] Name Value Range Interpretation Code Description Data Ekta rce(s) Supporting Document(s) Ferritin 23 ng/mL 11.1-264.0 Normal (applies to non-numeric resul ts) [facility] Test Performed By: [facility] [address] [place] [address] Director: Sandra Zuñiga MD ID Date Data Source [id number] 12/20/2020 09:35:[address] [facility] Name Value Range Interpretation Code Description Data Ekta rce(s) Supporting Document(s) Ferritin result 23 ng/mL 11.1-264.0 Normal (applies to non-numeric results) [facility] Test Performed By: [facility] [address] [place] [address] Director: Sandra Zuñiga MD ID Date Data Source [id number] 12/11/2020 08:09:00 PM EST [facility] Name Value Range Interpretation Code Description Data Ekta rce(s) Supporting Document(s) White Blood Count 4.8-10.8 Above high normal [facility] Red Blood Count 3.68-5.22 Normal (applies to non-numeric results) [facility] Hemoglobin 11.2-15.7 Normal (applies to non-numeric resul ts) [facility] Hematocrit 34.1-44.9 Normal (applies to non-numeric resul ts) [facility] Mean Corpuscular Volume 81-99 Below low normal [facility] Mean Corpuscular Hemoglobin 27.0-33.0 Below low normal [facility] Mean Corpuscular HGB Conc 32.0-36.0 Normal (applies to no n-numeric results) [facility] Red Cell Distribution Width 11.5-14.5 Above high normal [facility] Platelet Count 296 X10 3/uL 130-450 Normal (applies to non-numeric results) [facility] Mean Platelet Volume 9.5-12.7 Normal (applies to non-num salome results) [facility] Imm Grans% (AUTO) 0 % 0-2 Normal (applies to non-numeri c results) [facility] Neutrophils % (AUTO) 61 % 40-75 Normal (applies to non-num salome results) [facility] Lymphocytes % (AUTO) 31 % 21-46 Normal (applies to non-num salome results) [facility] Monocytes % (AUTO) 7 % 5-12 Normal (applies to non-numer ic results) [facility] Eosinophils % (AUTO) 1 % 1-5 Normal (applies to non-num salome results) [facility] Basophils % (AUTO) 0 % 0-1 Normal (applies to non-numer ic results) [facility] Imm Grans# (AUTO) 0.0-0.5 Normal (applies to non-numeri c results) [facility] Neutrophils # (AUTO) 1.5-8.1 Normal (applies to non-num salome results) [facility] Lymphocytes # (AUTO) 1.0-3.1 Above high normal [facility] Monocytes # (AUTO) 0.2-1.3 Normal (applies to non-numer ic results) [facility] Eosinophils# (AUTO) 0.0-0.5 Normal (applies to non-nume yahir results) [facility] Basophils # (AUTO) 0.0-0.1 Normal (applies to non-numer ic results) [facility] ID Date Data Source [id number] 12/11/2020 08:09:00 PM EST [facility] Name Value Range Interpretation Code Description Data Ekta rce(s) Supporting Document(s) Erythrocyte Sedimentation ESR 25 mm/hr 0-20 Above high normal [facility] ID Date Data Source [id number] 12/11/2020 03:50:00 PM EST [facility] Name Value Range Interpretation Code Description Data Ekta rce(s) Supporting Document(s) Sodium 142 mmol/L 137-145 Normal (applies to non-numeric resul ts) [facility] Potassium 3.5-5.1 Normal (applies to non-numeric resul ts) [facility] Chloride 107 mmol/L 98-112 Normal (applies to non-numeric resul ts) [facility] Carbon Dioxide CO2 22.0-33.0 Normal (applies to non-numer ic results) [facility] Anion Gap 4.0-11.0 Normal (applies to non-numeric resul ts) [facility] BUN 15 mg/dL 7-17 Normal (applies to non-numeric resul ts) [facility] Creatinine 0.70-1.20 Below low normal [facility] GFR >60 Normal (applies to non-numeric results) [facility] Result based on MDRD formula. Glucose Level 91 mg/dL 74-99 Normal (applies to non-numeric re sults) [facility] The reference range is only applicable w hen fasting. Calcium-Uncorrected 8.4-10.2 Normal (applies to non-nume yahir results) [facility] Corrected Calcium 8.4-10.2 Normal (applies to non-numeri c results) [facility] Bilirubin,Total 0.2-1.3 Normal (applies to non-numeric results) [facility] SGOT(AST) 23 U/L 14-36 Normal (applies to non-numeric resul ts) [facility] SGPT(ALT) 38 U/L 9-52 Normal (applies to non-numeric resul ts) [facility] Alkaline Phosphatase 112 U/L 38-126 Normal (applies to non-num salome results) [facility] can increase Alkaline Phosp le vels up to 2 times the normal adult value. Normal values for children and adolescents are 2 to 3 times the normal adult value. Total Protein 6.3-8.2 Normal (applies to non-numeric re sults) [facility] Albumin 3.5-5.0 Below low normal [facility] ID Date Data Source [id number] 12/11/2020 03:50:00 PM EST [facility] Name Value Range Interpretation Code Description Data Ekta rce(s) Supporting Document(s) C-Reactive Protein,Wide Range <3.00 Above high normal [facility] ID Date Data Source [id number] 12/06/2020 01:44:00 PM EST [facility] Name Value Range Interpretation Code Description Data Ekta rce(s) Supporting Document(s) SARS-CoV-2 RNA INHOUSE Negative Normal (applies to non-n umeric results) [facility] THIS IS A [facility] REPORTABLE COMMUNICABLE DISEASE. Testing was performed using the eshtery COVID-19 MDx Assay. This test has been authorized by FDA under an (Emergency Use Authorization) EUA for use by authorized laboratories for individuals who are suspected of COVID-19 by their healthcare provider. This test is only authorized for the duration of the declaration that circumstances exist justifying the authorization of emergency use of in vitro diagnostic tests for detection and/or diagnosis of SARS-CoV-2. Methodology: Endpoint RT-PCR. Fact sheets for this EUA assay can be found at the following links: Providers: https://www.fda.gov/media/458124/download Patients : https://www.fda.gov/media/513868/download THIS IS A [facility] REPORTABLE COMMUNICABLE DISEASE Negative results do not preclude SARS-CoV-2 infection and should not be used as the sole basis for patient management decisions. Negative results must be combined with clinical observations,patient history, and epidemiological information. ID Date Data Source [id number] 12/06/2020 07:02:00 AM EST [facility] Name Value Range Interpretation Code Description Data Ekta rce(s) Supporting Document(s) Respiratory specimen severe acute respir atory syndrome coronavirus 2 (SARS-CoV-2) RNA Negative (qualifier value) [facility] This lab was ordered by [facility] and reported by . ID Date Data Source [id number] 11/28/2020 08:38:00 AM EST [facility] Procedure Performed By: [facility] [address] [place] [address] Director: Asuncion Zuñiga MD Name Value Range Interpretation Code Description Data Ekta rce(s) Supporting Document(s) Urine Culture Normal (applies to non-numeric re sults) [facility] ID Date Data Source [id number] 11/26/2020 03:26:[address] [facility] Name Value Range Interpretation Code Description Data Ekta rce(s) Supporting Document(s) Color,Urine Colorl-Dk Y Normal (applies to non-numeric res ults) [facility] Clarity,Urine Clear Normal (applies to non-numeric re sults) [facility] Specific [place],Urine 1.005-1.030 Normal (applies to non- numeric results) [facility] pH,Urine 5.0-8.0 Normal (applies to non-numeric resul ts) [facility] Protein,Urine Negative Normal (applies to non-numeric re sults) [facility] Glucose,Urine Negative Normal (applies to non-numeric re sults) [facility] Ketones,Urine Negative Normal (applies to non-numeric re sults) [facility] Blood,Urine Negative [facility] Bilirubin,Urine Negative Normal (applies to non-numeric results) [facility] Urobilinogen,Urine 0.2-1.0 Normal (applies to non-numer ic results) [facility] Leukocyte Esterase,Urine Negative Normal (applies to non -numeric results) [facility] Nitrite,Urine Negative Normal (applies to non-numeric re sults) [facility] RBC,Urine None Seen [facility] WBC,Urine None Seen Normal (applies to non-numeric resul ts) [facility] Casts,Urine None Seen Normal (applies to non-numeric resu lts) [facility] Squamous Cells,Urine None Seen [facility] Bacteria,Urine None Seen Normal (applies to non-numeric r esults) [facility] ID Date Data Source [id number] 11/15/2020 10:24:00 AM [facility] Name: ANGELIA ARTHUR : 1965 Age/Sex: 54F Ordering Provider: Nam Ryder MD Med Rec #: [id number] Reg Status: DEP REF Room #: Date of Service: 11/14/20 Report Number: [id number] cc:Valerie Tarango MD; Nam Ryder MD Send Report To: [id number] XRP/XR Chest 1 View [Pa OR Ap] Reason for exam: VENOUS ACCESS PORT CHECK FINDINGS: Left Arvgnb-k-Paxo catheter tip identified with the tip in the SVC. Lung mills otherwise clear with no acute disease noted. IMPRESSION: No acute disease. Fluoroscopy time in seconds: 0 Number of Exposures: Time Portable Image Performed: Contrast Agent in ml: Method of Administration: REPORT SIGNATURE ON FILE Reported By: Win Restrepo MD <Electronically signed by Patrick Restrepo MD> 11/15/20 1242 Dictation Date/Time: 11/14/20 1701 Transcribed Date/Time: 11/15/20 1024 Medicaid Analyst: JHONNY Name Value Range Interpretation Code Description Data Ekta rce(s) Supporting Document(s) ID Date Data Source [id number] 11/14/2020 05:06:00 PM [facility] Name Value Range Interpretation Code Description Data Ekta rce(s) Supporting Document(s) Erythrocyte Sedimentation ESR 27 mm/hr 0-20 Above high normal [facility] ID Date Data Source [id number] 11/14/2020 05:06:00 PM [facility] Name Value Range Interpretation Code Description Data Ekta rce(s) Supporting Document(s) White Blood Count 4.8-10.8 Normal (applies to non-numeri c results) [facility] Red Blood Count 3.68-5.22 Normal (applies to non-numeric results) [facility] Hemoglobin 11.2-15.7 Normal (applies to non-numeric resul ts) [facility] Hematocrit 34.1-44.9 Normal (applies to non-numeric resul ts) [facility] Mean Corpuscular Volume 81-99 Below low normal [facility] Mean Corpuscular Hemoglobin 27.0-33.0 Below low normal [facility] Mean Corpuscular HGB Conc 32.0-36.0 Normal (applies to no n-numeric results) [facility] Red Cell Distribution Width 11.5-14.5 Above high normal [facility] Platelet Count 329 X10 3/uL 130-450 Normal (applies to non-numeric results) [facility] Mean Platelet Volume 9.5-12.7 Normal (applies to non-num salome results) [facility] Imm Grans% (AUTO) 0 % 0-2 Normal (applies to non-numeri c results) [facility] Neutrophils % (AUTO) 60 % 40-75 Normal (applies to non-num salome results) [facility] Lymphocytes % (AUTO) 32 % 21-46 Normal (applies to non-num salome results) [facility] Monocytes % (AUTO) 6 % 5-12 Normal (applies to non-numer ic results) [facility] Eosinophils % (AUTO) 1 % 1-5 Normal (applies to non-num salome results) [facility] Basophils % (AUTO) 1 % 0-1 Normal (applies to non-numer ic results) [facility] Imm Grans# (AUTO) 0.0-0.5 Normal (applies to non-numeri c results) [facility] Neutrophils # (AUTO) 1.5-8.1 Normal (applies to non-num salome results) [facility] Lymphocytes # (AUTO) 1.0-3.1 Above high normal [facility] Monocytes # (AUTO) 0.2-1.3 Normal (applies to non-numer ic results) [facility] Eosinophils# (AUTO) 0.0-0.5 Normal (applies to non-nume yahir results) [facility] Basophils # (AUTO) 0.0-0.1 Normal (applies to non-numer ic results) [facility] ID Date Data Source [id number] 11/14/2020 12:33:00 PM EST [facility] Name Value Range Interpretation Code Description Data Ekta rce(s) Supporting Document(s) Sodium 140 mmol/L 137-145 Normal (applies to non-numeric resul ts) [facility] Potassium 3.5-5.1 Normal (applies to non-numeric resul ts) [facility] Chloride 108 mmol/L 98-112 Normal (applies to non-numeric resul ts) [facility] Carbon Dioxide CO2 22.0-33.0 Normal (applies to non-numer ic results) [facility] Anion Gap 4.0-11.0 Normal (applies to non-numeric resul ts) [facility] BUN 18 mg/dL 7-17 Above high normal [facility] Creatinine 0.70-1.20 Below low normal [facility] GFR >60 Normal (applies to non-numeric results) [facility] Result based on MDRD formula. Glucose Level 96 mg/dL 74-99 Normal (applies to non-numeric re sults) [facility] The reference range is only applicable w hen fasting. Calcium-Uncorrected 8.4-10.2 Normal (applies to non-nume yahir results) [facility] Corrected Calcium 8.4-10.2 Normal (applies to non-numeri c results) [facility] Bilirubin,Total 0.2-1.3 Normal (applies to non-numeric results) [facility] SGOT(AST) 26 U/L 14-36 Normal (applies to non-numeric resul ts) [facility] SGPT(ALT) 44 U/L 9-52 Normal (applies to non-numeric resul ts) [facility] Alkaline Phosphatase 127 U/L 38-126 Above high normal [facility] can increase Alkaline Phosp le vels up to 2 times the normal adult value. Normal values for children and adolescents are 2 to 3 times the normal adult value. Total Protein 6.3-8.2 Normal (applies to non-numeric re sults) [facility] Albumin 3.5-5.0 Normal (applies to non-numeric resul ts) [facility] ID Date Data Source [id number] 11/14/2020 12:33:00 PM EST [facility] Name Value Range Interpretation Code Description Data Ekta rce(s) Supporting Document(s) C-Reactive Protein,Wide Range <3.00 Above high normal [facility] ID Date Data Source [id number] 11/08/2020 02:04:00 PM EST [facility] Name Value Range Interpretation Code Description Data Ekta rce(s) Supporting Document(s) SARS-CoV-2 RNA INHOUSE Negative Normal (applies to non-n umeric results) [facility] THIS IS A [facility] REPORTABLE COMMUNICABLE DISEASE. Testing was performed using the eshtery COVID-19 MDx Assay. This test has been authorized by FDA under an (Emergency Use Authorization) EUA for use by authorized laboratories for individuals who are suspected of COVID-19 by their healthcare provider. This test is only authorized for the duration of the declaration that circumstances exist justifying the authorization of emergency use of in vitro diagnostic tests for detection and/or diagnosis of SARS-CoV-2. Methodology: Endpoint RT-PCR. Fact sheets for this EUA assay can be found at the following links: Providers: https://www.fda.gov/media/046388/download Patients : https://www.fda.gov/media/753650/download THIS IS A [facility] REPORTABLE COMMUNICABLE DISEASE Negative results do not preclude SARS-CoV-2 infection and should not be used as the sole basis for patient management decisions. Negative results must be combined with clinical observations,patient history, and epidemiological information. ID Date Data Source [id number] 11/07/2020 10:02:00 AM [facility] Name Value Range Interpretation Code Description Data Ekta rce(s) Supporting Document(s) Respiratory specimen severe acute respir atory syndrome coronavirus 2 (SARS-CoV-2) RNA Negative (qualifier value) [facility] This lab was ordered by [facility] and reported by . ID Date Data Source [id number] 11/02/2020 10:22:00 AM [facility] Name: ANGELIA ARTHUR [facility] Rec #: [id number] : 1965 Age/Sex: 54F Date of Service: 11/02/20 DISPOSITION SUMMARY Discharge Summary [facility] Name:Angelia Arthur Emergency Department Age:54 yrs Sex:Female :1965 Arrival:11/02/2020 10:22 Departure Date11/02/2020 Departure Time15:19 Private MD:Valerie Tarango MD Outcome: Discharge Location: Home/Self Care Condition: Good Chief Complaint: Flank Pain Diagnosis: Abdominal Pain, Unspecified Prescriptions: Follow up: Valerie Tarango MD Custom Notes: Your workup done here in the ER was unremarkable and reassuring. Stick to a bland diet for the next few days and stay hydrated with plenty of fluids. Follow up with your primary care provider within the next week to recheck today's complaints. Please keep your appointment to have a colonoscopy done on Nov.18. <span> You may use [id number] Tylenol and ibuprofen for pain control at home.</span> <span> Please return back to the emergency department for any new or worsening symptoms including</span><span> changes in her bowel habits,</span><span> intractable vomiting, or fever.</span> Attending Physician: Nancy Green MD Private MD: Valerie Tarango MD Mid Level Provider: Galina Dinh PA Followup Physician: Valerie Tarango MD Orders: Cbc With Auto Differential, COMMET, Lipase, UA., TSH, Free T4 (free Thyroxine), Ofirmev, Ondansetron (PF), Cardiology EKG Interpretation - Choose Reason for Test, Free T3 (tri- Iodothyronine), Renal - US, Ct Abdomen & Pelvis with Con, Beta Hcg,Qualitative, Lidocaine, Collect Urine - Clean Catch, Saline Lock, Emergency Room EKG Order - Use EKG Work-Up /Quick Select Discharge Instruction: Discharge Summary Sheet, Flank Pain, Adult, Medication Reconciliation * Name Value Range Interpretation Code Description Data Ekta rce(s) Supporting Document(s) ID Date Data Source [id number] 11/02/2020 10:22:00 AM [facility] Name: ANGELIA ARTHUR [facility] Rec #: [id number] : 1965 Age/Sex: 54F Date of Service: 11/02/20 PHYSICIAN CHART Physician Documentation [facility] Name: Angelia Arthur Age: 54 yrs Sex: Female : 1965 Arrival Date: 11/02/2020 Time: 10:22 Bed 7 Private MD: Valerie Tarango L ED Physician Nancy Green Disposition: 11/02 19:39 Attestation: I was present, saw, evaluated and participated kr in the care with the Advanced Practice Provider. I agree with HPI as documented. My personal exam reveals findings consistent with those documented. I have reviewed relevant laboratory values and/or imaging studies. HPI: 11:09 This 54 yrs old Female presents to ER via Walk-In mmo with complaints of Flank Pain. 11:09 The patient is a 54-year-old female with a past medical mmo history of chronic back pain, GERD, lupus, myasthenia gravis, psoriatic arthritis who presents the emergency department today with complaints of left-sided flank pain that radiates around into the left lower quadrant. Patient states this pain began 3 days ago and has been constant since. She has tried Tylenol and ibuprofen however they have been making her stomach upset so she stopped. She reports diarrhea over the past 3 days as well, max 2 episodes per day. She denies any black or tarry stool, or bright red blood in the stool. She denies any dysuria, hematuria, urgency, or frequency. She has had a history of an ileus in the past which was treated with bowel rest, she has also had an exploratory surgery to remove abdominal adhesions back in 2004. The patient reports associated nausea but denies any episodes of vomiting. The patient did have COVID-19 back in late September and has recovered at this ti me however states since her diagnosis she has noticed that her blood pressure has been slightly elevated and she has been experiencing palpitations. She denies any chest pain, shortness of breath, or difficulty breathing. She denies any fevers or chills.. Historical: - Allergies: Azulfidine; Reglan; Soliris; Stelara; SULFA (SULFONAMIDES); - Home Meds: 1. gabapentin 300 mg Oral tab three times a day 2. omeprazole 20 mg Oral TbEC daily 3. remicade infusions 4. ropinirole 1 mg Oral tab 1 tab I mg in am and in afternoon and 2 mg at bedtime 5. Vitamin B-12 Oral tab - PMHx: ARTHRITIS; CHRONIC BACK PAIN; GERD; liver failure; LUPUS; myasthenia gravis; psoriasis arthritis; pulmonary emboli ([id number]); - PSHx: Port Placement; R-hip repair; R-knee repair; spinal fusion; - Med Reconciliation:: Green Alert: The patient's med list is complete to the best of the nurse's/provider's knowledge. Medications reviewed, verbally from patient/family. - Immunization history: Flu vaccine is up to date. - Advance directive: There is no existing advanced directive. Information offered. - Family History:: mother AAA. is . Father amyloidosis. is . - Social History: Smoking status (Tobacco): Patient states they are a former tobacco smoker, quit smoking quit 2017 ago. No barriers to communication noted, The patient speaks fluent Ivorian. ROS: 12:54 Constitutional: Negative for fever, chills, and weight mmo loss. Respiratory: Negative for shortness of breath, cough, wheezing, and pleuritic chest pain, Back: Negative for injury and pain, : Negative for dysuria, hematuria, urinary frequency, or urinary urgency. MS/Extremity: Negative for injury and deformity. Skin: Negative for injury, rash, and discoloration. Neuro: Negative for headache, weakness, numbness, tingling, and seizure. Cardiovascular: Positive for palpitations, Negative for chest pain, chest wall pain, edema, orthopnea, paroxysmal nocturnal dyspnea. Abdomen/GI: Positive for abdominal pain, nausea, diarrhea, Negative for vomiting, constipation, abdominal cramps, abdominal distension, anorexia, dysphagia, hematemesis, black/tarry stool, rectal bleeding. All other systems are negative. Exam: 12:55 Constitutional: This is a well developed, well nourished mmo patient who is awake, alert, and in no acute distress. Head/Face: Normocephalic, atraumatic. Cardiovascular: Regular rate and rhythm with a normal S1 and S2. No gallops, murmurs, or rubs. No pulse deficits. Respiratory: Lungs have equal breath sounds bilaterally, clear to auscultation and percussion. No rales, rhonchi or wheezes noted. Back: No spinal tenderness. No costovertebral tenderness. Full range of motion. Skin: Warm, dry with normal turgor. Normal color with no rashes, no lesions, and no evidence of cellulitis. MS/ Extremity: Pulses equal, no cyanosis. Neurovascular intact. Full, normal range of motion. Neuro: Awake and alert, GCS 15, oriented to person, place, time, and situation. Psych: Behavior, mood, and affect are within normal limits. 12:55 Abdomen/GI: Inspection: obese, - moderately Bowel sounds: normal, active, all quadrants, Palpation: soft, in all quadrants, mild abdominal tenderness, in the left upper quadrant and left lower quadrant, Rectal exam: Stool: guaiac negative. Control passed (blue color visible in performance control area). 15:17 : CVA tenderness, is absent. mmo Vital Signs: 10:33 BP 210 / 100; Pulse 109; Resp 16; Temp 98. 4; Pulse Ox 98% ; sj 10:48 BP 148 / 80; Pulse 84; Resp 14; Pulse Ox 96% on R/A; Pain sj 5/10; 11:49 BP 119 / 55; Pulse 85; Resp 20; Pulse Ox 94% on R/A; sj 12:49 BP 101 / 51; Pulse 80; Resp 16; Temp 98; Pulse Ox 96% ; sj Pain 5/10; 14:05 BP 111 / 59; Pulse 81; Resp 22; Temp 98.3; Pulse Ox 96% on sj R/A; Pain 6/10; 15:17 BP 110 / 58; Pulse 84; Resp 18; Temp 98.1(TE); Pulse Ox 97% sj on R/A; MDM: 10:36 Patient medically screened. mmo 10:59 ED course: Patient's vital signs in triage were 210/108-109 mmo however here in the ER bed the patient has a blood pressure of 184/80 and a heart rate in the 80s and regular. Patient's EKG shows a regular rate, regular rhythm. Normal intervals. Normal axis. Looks unchanged from prior on 10/16/2020.. 12:53 ED course: Renal US - evelinwfei, ( Andres Juarez )- 11/02/2020 mmo 12:39:40 PM Kidneys unremarkable. No renal stones or hydronephrosis. Bladder is collapsed and not evaluated.. 14:18 ED course: Ct ABD/pelvis - violet, ( Ga Mendez // o Radiologist )- 11/02/2020 2:15:[address] evidence of inflammatory bowel disease.. 15:17 Case presented to: Dr. Nancy Green. Data reviewed: vital mmo signs, nurses notes, lab test result(s), EKG, radiologic studies. ED course: The patient is a 54-year-old female who presented the emergency department today with complaints of left-sided flank pain, left lower quadrant pain, and palpitations. Patient's EKG showed a normal sinus rhythm. Thyroid studies were WNL. . 11/02 10:54 Order name: Cbc With Auto Differential; Complete Time: 13:35mmo 11/02 13:36 Interpretation: WBC 10.8; RBC 5.01; HGB 13.3; HCT 39.4; PLT mmo 328. 11/02 10:54 Order name: COMMET; Complete Time: 15:05 mmo 11/02 15:05 Interpretation: NA 138; K 3.6; CL 108; CO2 27.0; GAP 3.0; mmo BUN 13; CREAT 0.65; Glom Filtration > 90; GLU 82; CA 8.7; Corrected CA 9.3; T Bili 0.3; SGOT(AST) 15; SGPT(ALT) 40; ALK PHOS 109; TP 7.2; ALB 3.3. 11/02 10:54 Order name: Lipase; Complete Time: 15:05 o 11/02 15:05 Interpretation: LIP 99. o 11/02 10:54 Order name: UA.; Complete Time: 12:26 mmo 11/02 12:39 Interpretation: Ur Color Yellow; Ur Clarity Clear; Ur Spec mmo gravity 1.014; Ur PH 7.0; Ur Protein Negative; Ur Glucose Negative; Ur Ketones Negative; Ur Blood Negative; Ur Bilirubin Negative; Ur Urobilinogen 0.2; Ur Leuk Est Negative; Ur Nitrite Negative. 11/02 10:58 Order name: TSH; Complete Time: 15:05 mmo 11/02 15:06 Interpretation: TSH 1.120. [facility] 11/02 10:58 Order name: Free T4 (free Thyroxine); Complete Time: 15:05 o 11/02 15:12 Interpretation: FreeT4 1.16. o 11/02 10:54 Order name: Cardiology EKG Interpretation - Choose Reason mmo for Test 11/02 10:58 Order name: Free T3 (tri-Iodothyronine); Complete Time: mmo 15:05 11/02 15:12 Interpretation: Free T3 2.78. o 11/02 11:09 Order name: Renal - US [facility] 11/02 11:31 Order name: Ct Abdomen & Pelvis with Con o 11/02 11:31 Order name: Beta Hcg,Qualitative; Complete Time: 14:56 o 11/02 14:56 Interpretation: Beta HCG,Screen Negative. [facility] 11/02 10:54 Order name: Collect Urine - Clean Catch; Complete Time: mmo 11:20 11/02 10:54 Order name: Saline Lock; Complete Time: 11:03 mmo 11/02 10:54 Order name: Emergency Room EKG Order - Use EKG Work-Up mmo /Quick Select; Complete Time: 10:54 Dispensed Medications: 11:10 Drug: Ondansetron (PF) 4 mg [ondansetron HCl (PF) 4 mg/2 mL injection solution (2 mL)] Route: IVP; Infused Over: 2 mins; Site: right antecubital; 11:52 Follow up: Response: Nausea is decreased 11:20 Drug: Ofirmev 1000 mg [Ofirmev 1,000 mg/100 mL (10 mg/mL) sj intravenous solution] Route: IVPB; Site: right antecubital; 11:35 Follow up: IV Status: Completed infusion; IV Intake: 100ml sj 11:49 Follow up: Response: Pain is decreased sj 14:44 Drug: GI Cocktail - (Alum-Mag Hydroxide-Simeth Suspension sj 400 mg-400 mg-40 mg/5 mL 10 ml, Lidocaine Liquid 4 % 10 ml, Liquid 10 ml) Route: Mucous Membrane; 15:18 Follow up: Response: no relief sj Disposition Summary: 11/02/20 15:13 Discharge Ordered Location: Home/Self Care mmo Condition: Good mmo Diagnosis - Abdominal Pain, Unspecified mmo Followup: mmo - With: Valerie Tarango MD - When: 1 week - Reason: Recheck today's complaints Discharge Instructions: - Discharge Summary Sheet mmo - Flank Pain, Adult mmo Forms: - Medication Reconciliation mmo Signatures: Dispatcher [employer] Rubi Araiza RN RN sj O'Brien, Megan, PA PA mmo Nancy Green MD MD kr Corrections: (The following items were deleted from the chart) 11:11 11:09 The patient is a 54-year-old female with a past mmo medical history of chronic back pain, GERD, lupus, myasthenia gravis, psoriatic arthritis who presents the emergency department today with complaints of left-sided flank pain that radiates around into the left lower quadrant. Patient states this pain began 3 days ago and has been constant since. She has tried Tylenol and ibuprofen however they have been making her stomach upset so she stopped. She reports diarrhea over the past 3 days as well, max 2 episodes per day. She denies any black or tarry stool, or bright red blood in the stool. She denies any dysuria, hematuria, urgency, or frequency. She has had a history of an ileus in the past which was treated with bowel rest, she has also had an exploratory surgery to remove abdominal adhesions back in 2004.. mmo Name Value Range Interpretation Code Description Data Ekta rce(s) Supporting Document(s) ID Date Data Source [id number] 11/02/2020 10:22:00 AM [facility] Name: ANGELIA ARTHUR [facility] Rec #: [id number] : 1965 Age/Sex: 54F Date of Service: 11/02/20 NURSE CHART Nurse's Notes [facility] Name: Angelia Arthur Age: 54 yrs Sex: Female : 1965 Arrival Date: 11/02/2020 Time: 10:22 Bed 7 Private MD: Valerie Tarango L Diagnosis: Abdominal Pain, Unspecified Presentation: 11/02 10:26 Transition of care: patient was not received from another setting of care. 10:26 Method Of Arrival: Walk-In 10:26 Acuity: Urgent - 3 10:30 Presenting complaint: Patient states - She has had left sj flank pain since . She did have COVID Dec 20 and has since been cleared. The pain is radiating to LLQ and she has had some nausea with the pain and diarrhea. States she had ileus one year ago. She has also been having high blood pressure readings over the past month with periods of dizziness and palpitations. Have you travelled in the last 30 days? No. Have you had contact with an individual with a confirmed diagnosis of Ebola or COVID-19? No. Triage Assessment: 10:32 Suicide Screening: Have you had thoughts of harming yourself or others? No. The patient appears to have some mild discomfort, The patient is cooperative. Patient states the pain is currently a 5 / 10 The patient complains of pain in anterior aspect of left lateral abdomen and left lower quadrant. The quality of the pain is described as sharp, The pain is described as continuous. Historical: - Allergies: Azulfidine; Reglan; Soliris; Stelara; SULFA (SULFONAMIDES); - Home Meds: 1. gabapentin 300 mg Oral tab three times a day 2. omeprazole 20 mg Oral TbEC daily 3. remicade infusions 4. ropinirole 1 mg Oral tab 1 tab I mg in am and in afternoon and 2 mg at bedtime 5. Vitamin B-12 Oral tab - PMHx: ARTHRITIS; CHRONIC BACK PAIN; GERD; liver failure; LUPUS; myasthenia gravis; psoriasis arthritis; pulmonary emboli ([id number]); - PSHx: Port Placement; R-hip repair; R-knee repair; spinal fusion; - Med Reconciliation:: Green Alert: The patient's med list is complete to the best of the nurse's/provider's knowledge. Medications reviewed, verbally from patient/family. - Immunization history: Flu vaccine is up to date. - Advance directive: There is no existing advanced directive. Information offered. - Family History:: mother AAA. is . Father amyloidosis. is . - Social History: Smoking status (Tobacco): Patient states they are a former tobacco smoker, quit smoking quit 2017 ago. No barriers to communication noted, The patient speaks fluent Ivorian. Vital Signs: 10:33 BP 210 / 100; Pulse 109; Resp 16; Temp 98.4; Pulse Ox 98% ; sj 10:48 BP 148 / 80; Pulse 84; Resp 14; Pulse Ox 96% on R/A; Pain sj 5/10; 11:49 BP 119 / 55; Pulse 85; Resp 20; Pulse Ox 94% on R/A; sj 12:49 BP 101 / 51; Pulse 80; Resp 16; Temp 98; Pulse Ox 96% ; sj Pain 5/10; 14:05 BP 111 / 59; Pulse 81; Resp 22; Temp 98.3; Pulse Ox 96% on sj R/A; Pain 6/10; 15:17 BP 110 / 58; Pulse 84; Resp 18; Temp 98.1(TE); Pulse Ox 97% sj on R/A; ED Course: 10:22 Patient arrived in ED. rld 10:25 Rubi Muñoz RN is Primary Nurse. sj 10:26 Triage completed. sj 10:32 Valerie Tarango MD is Private Physician. sj 10:33 Patient placed in exam room Placed in gown. Bed in low sj position. Call light in reach. Side rails up X 1. 10:34 Galina Dinh PA is PHCP. mmo 10:34 Nancy Green MD is Attending Physician. mmo 10:49 Placed in gown, Bed in low position, Call light in reach, sj Side rails up X 1. monitor worker on. Pulse on is on. NIBP on. 10:50 An EKG was obtained and reviewed by Nancy Green MD. sj 11:10 No procedures ordered. Labs drawn by ED staff. Inserted sj saline lock: 20 gauge in right antecubital area. 11:21 Urine collected. Clean catch specimen. sj 11:34 Radiology: The patient's bedside ultrasound was completed sj at 11:34. 13:51 Radiology: The patient went to get his/her CT at 13:40. sj 15:13 Valerie Tarango MD is Referral Physician. mmo 15:18 Discontinued lock bleeding controlled, pressure dressing sj applied, No redness/swelling at site. Administered Medications: 11:10 Drug: Ondansetron (PF) 4 mg [ondansetron HCl (PF) 4 mg/2 mL sj injection solution (2 mL)] Route: IVP; Infused Over: 2 mins; Site: right antecubital; 11:52 Follow up: Response: Nausea is decreased sj 11:20 Drug: Ofirmev 1000 mg [Ofirmev 1,000 mg/100 mL (10 mg/mL) sj intravenous solution] Route: IVPB; Site: right antecubital; 11:35 Follow up: IV Status: Completed infusion; IV Intake: 100ml sj 11:49 Follow up: Response: Pain is decreased sj 14:44 Drug: GI Cocktail - (Alum-Mag Hydroxide-Simeth Suspension sj 400 mg-400 mg-40 mg/5 mL 10 ml, Lidocaine Liquid 4 % 10 ml, Liquid 10 ml) Route: Mucous Membrane; 15:18 Follow up: Response: no relief sj Intake: 11:35 IV: 100ml; Total: 100ml. sj Outcome: 15:13 Discharge ordered by . mmo 15:18 Patient verbalized understanding of disposition sj instructions. Patient has no functional deficits. 15:18 Patient discharged to home ambulatory. 15:18 Condition: stable 15:18 Discharge instructions given to patient, Patient was instructed on discharge instructions, follow up and referral plans, The patient demonstrated understanding of instructions, No prescriptions given. 15:18 Vitals are Complete in accordance with Emergency Department Policy. 15:19 Patient left the ED. 11/03 09:33 24 hour call back attempted, no answer kendrick Signatures: Rubi Muñoz, RN RN Winsome Coe RN RN Galina Bynum PA PA mmo Devine, Rachel rld Name Value Range Interpretation Code Description Data [facility] rce(s) Supporting Document(s) ID Date Data Source [id number] 11/02/2020 03:02:00 PM EST [facility] Name Value Range Interpretation Code Description Data [facility] rce(s) Supporting Document(s) Sodium 138 mmol/L 137-145 Normal (applies to non-numeric resul ts) [facility] Potassium 3.5-5.1 Normal (applies to non-numeric resul ts) [facility] Chloride 108 mmol/L 98-112 Normal (applies to non-numeric resul ts) [facility] Carbon Dioxide CO2 22.0-33.0 Normal (applies to non-numer ic results) [facility] Anion Gap 4.0-11.0 Below low normal [facility] BUN 13 mg/dL 7-17 Normal (applies to non-numeric resul ts) [facility] Creatinine 0.70-1.20 Below low normal [facility] GFR >60 Normal (applies to non-numeric results) [facility] Result based on MDRD formula. Glucose Level 82 mg/dL 74-99 Normal (applies to non-numeric re sults) [facility] The reference range is only applicable w hen fasting. Calcium-Uncorrected 8.4-10.2 Normal (applies to non-nume yahir results) [facility] Corrected Calcium 8.4-10.2 Normal (applies to non-numeri c results) [facility] Bilirubin,Total 0.2-1.3 Normal (applies to non-numeric results) [facility] SGOT(AST) 15 U/L 14-36 Normal (applies to non-numeric resul ts) [facility] SGPT(ALT) 40 U/L 9-52 Normal (applies to non-numeric resul ts) [facility] Alkaline Phosphatase 109 U/L 38-126 Normal (applies to non-num salome results) [facility] can increase Alkaline Phosp le vels up to 2 times the normal adult value. Normal values for children and adolescents are 2 to 3 times the normal adult value. Total Protein 6.3-8.2 Normal (applies to non-numeric re sults) [facility] Albumin 3.5-5.0 Below low normal [facility] ID Date Data Source [id number] 11/02/2020 03:02:00 PM EST [facility] Name Value Range Interpretation Code Description Data Ekta rce(s) Supporting Document(s) Lipase 99 U/L 73-393 Normal (applies to non-numeric resul ts) [facility] ID Date Data Source [id number] 11/02/2020 03:00:00 PM [facility] Name Value Range Interpretation Code Description Data Ekta rce(s) Supporting Document(s) Free T4 (Free Thyroxine) 0.76-1.46 Normal (applies to non -numeric results) [facility] ID Date Data Source [id number] 11/02/2020 03:00:00 PM [facility] Name Value Range Interpretation Code Description Data Ekta rce(s) Supporting Document(s) Free T3 2.18-3.98 Normal (applies to non-numeric resul ts) [facility] ID Date Data Source [id number] 11/02/2020 03:00:00 PM [facility] Value Range Interpretation Code Description Data Ekta rce(s) Supporting Document(s) Thyroid Stimulate Hormone TSH 0.358-3.740 No rmal (applies to non-numeric results) [facility] ID Date Data Source [id number] 11/02/2020 02:38:00 PM EST [facility] Name Value Range Interpretation Code Description Data Ekta rce(s) Supporting Document(s) Beta HCG Screen,Qualitative Negative Normal (appli es to non-numeric results) [facility] ID Date Data Source [id number] 11/03/2020 10:12:00 AM [facility] Name: ANGELIA ARTHUR : 1965 Age/Sex: 54F Ordering Provider: NGUYEN Abbott Med Rec #: [id number] Reg Status: [facility] ER Room #: Date of Service: 11/02/20 Report Number: [id number] cc:Valerie Tarango MD Send Report To: [id number] CT/CT Abdomen & Pelvis w Con Reason for exam: ABDOMINAL PAIN Comparison is made to 05/08/2019 FINDINGS: No acute changes are noted at the lung bases. The liver is decreased in attenuation consistent with intrinsic liver disease and fatty infiltration. The liver is enlarged to 19.3 cm. No discrete mass or biliary duct dilatation is demonstrated. The spleen, adrenal glands, kidneys, pancreas and gallbladder are unremarkable. There is no intra or retroperitoneal adenopathy by CT size criteria. Evaluation of the pelvis does not demonstrate free fluid. The urinary bladder is not distended or opacified limiting evaluation. Evaluation of unopacified bowel does not demonstrate CT evidence of focal inflammatory bowel disease or obstruction. Incomplete distention limits evaluation for wall thickness. Retained feces limits evaluation of the colon. The appendix is not definitely visualized, but no CT evidence of inflammatory changes in the right lower quadrant. The distal esophagus is not fully distendedlimiting evaluation. Evaluation of the visualized skeleton demonstrates bony demineralization and degenerative changes. There are postoperative changes at the L5-S1 level as previous. IMPRESSION: No CT evidence of inflammatory bowel disease. While performing the above CT exam, the following dose reduction techniques wereused: *Automated exposure control *Adjustment of the mA and/or kV according to patient size *Use of iterative reconstruction technique CT Dose in mSv: 9.3 Contrast Agent in ml: Isovue 300 85 Method of Ad ministration: Intraveneous REPORT SIGNATURE ON FILE Reported By: Ga Mendez MD <Electronically signed by Ga Mendez MD> 11/04/20 1020 Dictation Date/Time: 11/02/20 1407 Transcribed Date/Time: 11/03/20 1012 Medicaid Analyst: CAMPOS Name Value Range Interpretation Code Description Data Ekta rce(s) Supporting Document(s) ID Date Data Source [id number] 11/02/2020 05:07:00 PM [facility] Name: ANGELIA ARTHUR : 1965 Age/Sex: 54F Ordering Provider: NGUYEN Abbott Med Rec #: [id number] Reg Status: [facility] Room #: Date of Service: 11/02/20 Report Number: [id number] cc:Valerie Tarango MD; Nancy Green MD; NGUYEN Abbott Send Report To: [id number] US/US Renal Ultrasound Reason for exam: LEFT FLANK PAIN Comparison: 07/08/18 FINDINGS: Both kidneys have a normal contour and echotexture. The right kidneymeasures 10.6 cm in sagittal length. The left kidney measures 11.6 cm sagittal length. No cortical thinning. No renal stones or masses. No hydronephrosis. Bladder is collapsed and not evaluated. The liver appears to have an increased echotexture. IMPRESSION: KIDNEYS UNREMARKABLE. NO RENAL STONES OR HYDRONEPHROSIS. BLADDER IS COLLAPSED AND NOT EVALUATED. REPORT SIGNATURE ON FILE Reported By: Andres Juarez DO <Electronically signed by Andres Juarez DO> 11/04/20 1025 Dictation Date/Time: 11/02/20 1235 Transcribed Date/Time: 11/02/20 1707 Medicaid Analyst: RICARDO Name Value Range Interpretation Code Description Data Ekta rce(s) Supporting Document(s) ID Date Data Source [id number] 11/02/2020 01:31:00 PM EST [facility] Name Value Range Interpretation Code Description Data Ekta rce(s) Supporting Document(s) White Blood Count 4.8-10.8 Normal (applies to non-numeri c results) [facility] Red Blood Count 3.68-5.22 Normal (applies to non-numeric results) [facility] Hemoglobin 11.2-15.7 Normal (applies to non-numeric resul ts) [facility] Hematocrit 34.1-44.9 Normal (applies to non-numeric resul ts) [facility] Mean Corpuscular Volume 81-99 Below low normal [facility] Mean Corpuscular Hemoglobin 27.0-33.0 Below low normal [facility] Mean Corpuscular HGB Conc 32.0-36.0 Normal (applies to no n-numeric results) [facility] Red Cell Distribution Width 11.5-14.5 Above high normal [facility] Platelet Count 328 X10 3/uL 130-450 Normal (applies to non-numeric results) [facility] Mean Platelet Volume 9.5-12.7 Normal (applies to non-num salome results) [facility] Imm Grans% (AUTO) 0 % 0-2 Normal (applies to non-numeri c results) [facility] Neutrophils % (AUTO) 61 % 40-75 Normal (applies to non-num salome results) [facility] Lymphocytes % (AUTO) 32 % 21-46 Normal (applies to non-num salome results) [facility] Monocytes % (AUTO) 6 % 5-12 Normal (applies to non-numer ic results) [facility] Eosinophils % (AUTO) 1 % 1-5 Normal (applies to non-num salome results) [facility] Basophils % (AUTO) 0 % 0-1 Normal (applies to non-numer ic results) [facility] Imm Grans# (AUTO) 0.0-0.5 Normal (applies to non-numeri c results) [facility] Neutrophils # (AUTO) 1.5-8.1 Normal (applies to non-num salome results) [facility] Lymphocytes # (AUTO) 1.0-3.1 Above high normal [facility] Monocytes # (AUTO) 0.2-1.3 Normal (applies to non-numer ic results) [facility] Eosinophils# (AUTO) 0.0-0.5 Normal (applies to non-nume yahir results) [facility] Basophils # (AUTO) 0.0-0.1 Normal (applies to non-numer ic results) [facility] ID Date Data Source [id number] 11/02/2020 11:46:00 AM EST [facility] Name Value Range Interpretation Code Description Data Ekta rce(s) Supporting Document(s) Color,Urine Yellow Normal (applies to non-numeric resu lts) [facility] Clarity,Urine Clear Normal (applies to non-numeric re sults) [facility] Specific [place],Urine 1.001-1.030 Normal (applies to non- numeric results) [facility] PH,Urine 5.0-8.0 Normal (applies to non-numeric resul ts) [facility] Protein,Urine Negative Normal (applies to non-numeric re sults) [facility] Glucose,Urine (UA) Negative Normal (applies to non-numer ic results) [facility] Ketones,Urine Negative Normal (applies to non-numeric re sults) [facility] Blood,Urine Negative Normal (applies to non-numeric resu lts) [facility] Bilirubin,Urine Negative Normal (applies to non-numeric results) [facility] Urobilinogen,Urine Norm 0.2-1 Normal (applies to non-numer ic results) [facility] Leukocyte Esterase,Urine Negative Normal (applies to non -numeric results) [facility] Nitrite,Urine Negative Normal (applies to non-numeric re sults) [facility] ID Date Data Source [id number] 11/04/2020 06:09:00 PM [facility] Name: ANGELIA ARTHUR : 1965 Age/Sex: 54F Ordering Provider: NGUYEN Abbott Med Rec #: [id number] Reg Status:[facility] ER Room #: Date of Service: 11/02/20 Report Number: [id number] cc: Valerie Tarango MD; NGUYEN Abbott Send Report To: Reason for exam: ABDOMINAL PAIN SINUS RHYTHM LOW QRS VOLTAGE IN PRECORDIAL LEADS BORDERLINE ECG Physician [employer] Mechanic: Dr. Delmra Miller M.D. ECG HEART RATE: 88 /min ECG RR INTERVAL: 675 ms ECG P DURATION: 118 ms ECG QRS DURATION: 85 ms ECG PA INTERVAL: 162 ms ECG QT INTERVAL: 339 ms ECG QTC INTERVAL: 388 ms Q-T dispersion: ms ECG P AXIS: 47 deg ECG QRS AXIS: 44 deg ECG T AXIS: 43 deg REPORT SIGNATURE ON FILE 11/04/201808 Reported By: Delmar Miller MD <<Signature on File>> Exam Date/Time: 11/02/20 1041 Order #: [id number] Dictation Date/Time: 11/04/201808 Transcribed Date/Time: 11/04/201808 Medicaid Analyst: VALDO Name Value Range Interpretation Code Description Data Ekta rce(s) Supporting Document(s) ID Date Data Source [id number] 10/24/2020 11:08:00 AM [facility] Name Value Range Interpretation Code Description Data Ekta rce(s) Supporting Document(s) Vitamin E result 5.5 - 17.0 Normal (applies to non-numeric results) [facility] ADDITIONAL INFORMATIO N This test was developed and its performance characteristics determined by [facility] in a manner consistent with CLIA requirements. This test has not been cleared or approved by the U.S. Food and Drug Administration. Test Performed by: [facility] [place] [address] [employer] Driver: Willi Rendon M.D. Ph.D.; CLIA# [id number] ID Date Data Source [id number] 10/24/2020 11:08:00 AM [facility] Name Value Range Interpretation Code Description Data Ekta rce(s) Supporting Document(s) Vitamin K result 0.10-2.20 Normal (applies to non-numeric results) [facility] ADDITIONAL INFORMATIO N This test was developed and its performance characteristics determined by [facility] in a manner consistent with CLIA requirements. This test has not been cleared or approved by the U.S. Food and Drug Administration. Test Performed by: [facility] [place] [address] [employer] Driver: Willi Rendon M.D. Ph.D.; CLIA# [id number] ID Date Data Source [id number] 10/22/2020 10:36:00 PM [facility] Value Range Interpretation Code Description Data Ekta rce(s) Supporting Document(s) Free Retinol(Vit A) result 32.5-78.0 Normal (applie s to non-numeric results) [facility] ADDITIONAL INFORMATIO N This test was developed and its performance characteristics determined by [facility] in a manner consistent with CLIA requirements. This test has not been cleared or approved by the U.S. Food and Drug Administration. Test Performed by: [facility] [place] [address] [employer] Driver: Willi Rendon M.D. Ph.D.; CLIA# [id number] ID Date Data Source [id number] 10/18/2020 08:16:00 PM [facility] Name Value Range Interpretation Code Description Data Ekta rce(s) Supporting Document(s) Vitamin D,Total (25OH) 30.0-100.0 Below low normal [facility] Reference Range: <10 ng/mL: Deficien t 10-30 ng/mL: Insufficient 30-100 ng/mL: Sufficient >100 ng/mL: Toxicity possible ID Date Data Source [id number] 10/18/2020 03:27:00 PM [facility] Name Value Range Interpretation Code Description Data Ekta rce(s) Supporting Document(s) Vitamin B12 193-986 Above high normal [facility] ID Date Data Source [id number] 10/18/2020 03:27:00 PM [facility] Name Value Range Interpretation Code Description Data Ekta rce(s) Supporting Document(s) Thyroid Stimulate Hormone TSH 0.358-3.740 No rmal (applies to non-numeric results) [facility] ID Date Data Source [id number] 10/18/2020 02:45:00 PM [facility] Name Value Range Interpretation Code Description Data Ekta rce(s) Supporting Document(s) White Blood Count 4.8-10.8 Above high normal [facility] Red Blood Count 3.68-5.22 Normal (applies to non-numeric results) [facility] Hemoglobin 11.2-15.7 Normal (applies to non-numeric resul ts) [facility] Hematocrit 34.1-44.9 Normal (applies to non-numeric resul ts) [facility] Mean Corpuscular Volume 81-99 Below low normal [facility] Mean Corpuscular Hemoglobin 27.0-33.0 Normal (appli es to non-numeric results) [facility] Mean Corpuscular HGB Conc 32.0-36.0 Normal (applies to no n-numeric results) [facility] Red Cell Distribution Width 11.5-14.5 Above high normal [facility] Platelet Count 299 X10 3/uL 130-450 Normal (applies to non-numeric results) [facility] Mean Platelet Volume 9.5-12.7 Normal (applies to non-num salome results) [facility] Imm Grans% (AUTO) 0 % 0-2 Normal (applies to non-numeri c results) [facility] Neutrophils % (AUTO) 65 % 40-75 Normal (applies to non-num salome results) [facility] Lymphocytes % (AUTO) 26 % 21-46 Normal (applies to non-num salome results) [facility] Monocytes % (AUTO) 7 % 5-12 Normal (applies to non-numer ic results) [facility] Eosinophils % (AUTO) 1 % 1-5 Normal (applies to non-num salome results) [facility] Basophils % (AUTO) 0 % 0-1 Normal (applies to non-numer ic results) [facility] Imm Grans# (AUTO) 0.0-0.5 Normal (applies to non-numeri c results) [facility] Neutrophils # (AUTO) 1.5-8.1 Above high normal [facility] Lymphocytes # (AUTO) 1.0-3.1 Above high normal [facility] Monocytes # (AUTO) 0.2-1.3 Normal (applies to non-numer ic results) [facility] Eosinophils# (AUTO) 0.0-0.5 Normal (applies to non-nume yahir results) [facility] Basophils # (AUTO) 0.0-0.1 Normal (applies to non-numer ic results) [facility] ID Date Data Source [id number] 10/18/2020 02:45:00 PM EST [facility] Name Value Range Interpretation Code Description Data Ekta rce(s) Supporting Document(s) Erythrocyte Sedimentation ESR 10 mm/hr 0-20 No rmal (applies to non-numeric results) [facility] ID Date Data Source [id number] 10/18/2020 02:43:00 PM EST [facility] Name Value Range Interpretation Code Description Data Ekta rce(s) Supporting Document(s) Hemoglobin A1C % Less than 5.7% Above high normal [facility] HBA1C: Normal: Less than 5.7% Prediabetes: 5.7% to 6.4% Diabetes: 6.5% or higher HA1C % vs Estimated Average Glucose (eAG) % eAG % eAG 6% 126 mg/dL 10% 240 mg/dL 7% 154 mg/dL 11% 269 mg/dL 8% 183 mg/dL 12% 298 mg/dL 9% 212 mg/dL Reference: [place] [employer], 2017 ID Date Data Source [id number] 10/18/2020 02:35:00 PM EST [facility] Name Value Range Interpretation Code Description Data Ekta rce(s) Supporting Document(s) Sodium 142 mmol/L 137-145 Normal (applies to non-numeric resul ts) [facility] Potassium 3.5-5.1 Normal (applies to non-numeric resul ts) [facility] Chloride 110 mmol/L 98-112 Normal (applies to non-numeric resul ts) [facility] Carbon Dioxide CO2 22.0-33.0 Normal (applies to non-numer ic results) [facility] Anion Gap 4.0-11.0 Normal (applies to non-numeric resul ts) [facility] BUN 15 mg/dL 7-17 Normal (applies to non-numeric resul ts) [facility] Creatinine 0.70-1.20 Below low normal [facility] GFR >60 Normal (applies to non-numeric results) [facility] Result based on MDRD formula. Glucose Level 82 mg/dL 74-99 Normal (applies to non-numeric re sults) [facility] The reference range is only applicable w hen fasting. Calcium-Uncorrected 8.4-10.2 Normal (applies to non-nume yahir results) [facility] Corrected Calcium 8.4-10.2 Normal (applies to non-numeri c results) [facility] Bilirubin,Total 0.2-1.3 Normal (applies to non-numeric results) [facility] SGOT(AST) 23 U/L 14-36 Normal (applies to non-numeric resul ts) [facility] SGPT(ALT) 40 U/L 9-52 Normal (applies to non-numeric resul ts) [facility] Alkaline Phosphatase 117 U/L 38-126 Normal (applies to non-num salome results) [facility] can increase Alkaline Phosp le vels up to 2 times the normal adult value. Normal values for children and adolescents are 2 to 3 times the normal adult value. Total Protein 6.3-8.2 Normal (applies to non-numeric re sults) [facility] Albumin 3.5-5.0 Below low normal [facility] ID Date Data Source [id number] 10/18/2020 02:35:00 PM [facility] Name Value Range Interpretation Code Description Data Ekta rce(s) Supporting Document(s) C-Reactive Protein,Wide Range <3.00 Above high normal [facility] ID Date Data Source [id number] 10/16/2020 03:20:00 PM [facility] Name: ANGELIA ARTHUR [facility] Rec #: [id number] : 1965 Age/Sex: 54F Date of Service: 10/16/20 DISPOSITION SUMMARY Discharge Summary [facility] Name:Angelia Arthur Emergency Department Age:54 yrs Sex:Female :1965 Arrival:10/16/2020 15:20 Departure Date10/16/2020 Departure Time20:56 Private MD:Valerie Tarango MD Outcome: Discharge Location: Home/Self Care Condition: Good Chief Complaint: High Blood Pressure, Back Pain, Headache > 24hrs Old, Shortness Of Breath Diagnosis: Acute Upper Back Pain, Thoracic Prescriptions: Follow up: Valerie Tarango MD Custom Notes: <span><span>Take Tylenol</span><span> as needed</span><span> back pain.</span>

<span>You may try to apply ice packs or warm packs</span><span> for 15 minutes at a time at least 3-4 times a day to the</span><span> painful area of the back.</span>

<span>Contact</span><span> the infusion clinic to schedule your next Remicade infusion.

<span>Follow-up with either</span><span> the rheumatology clinic or with your PCP if the back pain persists</span><span>.</span></span>

<span>Return to the emergency department as needed if your symptoms are worse.</span></span> Attending Physician: Ondina Mcrae MD Private MD: Valerie Tarango MD Mid Level Provider: Followup Physician: Valerie Tarango MD Orders: Cbc With Auto Differential, Comprehensive Metabolic Prof., Lipase, MG (Magnesium), Partial Thromboplastin Time, Prothrombin Time, Troponin I, CXR Portable (Chest Pain), Emergency Room EKG Order - Use EKG Work- Up /Quick Select, Cardiology EKG Interpretation - Choose Reason for Test, Iv Saline Lock, Ventolin, CT Chest for PE with contrast (choose symptom), UA., Place Patient On Monitor, Vital Signs - Recheck: Blood pressure only , Collect Urine - Clean Catch Discharge Instruction: Discharge Summary Sheet, Thoracic Strain, Medication Reconciliation Name Value Range Interpretation Code Description Data Ekta rce(s) Supporting Document(s) ID Date Data Source [id number] 10/16/2020 03:20:00 PM [facility] Name: ANGELIA ARTHUR [facility] Rec #: [id number] : 1965 Age/Sex: 54F Date of Service: 10/16/20 PHYSICIAN CHART Physician Documentation [facility] Name: Angelia Arthur Age: 54 yrs Sex: Female : 1965 Arrival Date: 10/16/2020 Time: 15:20 Bed EDRU-1 Private MD: Valerie Tarango L ED Physician Ondina Mcrae HPI: 10/16 16:06 This 54 yrs old Female presents to ER via [facility] with complaints of High Blood Pressure, Back Pain, Headache > 24hrs Old, Shortness Of Breath. 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 Angelia developed symptoms on 10/03/2020 of cough, headache, body aches, loss of taste and smell, and mild gastric upset. She tested positive for Covid on 10/10. Shortly after developing symptoms she began to experience a vague constant ache across her back between her shoulder blades that radiates around to the center of her chest. It seems slightly worse with movements, deep breathing and coughing, but is definitely worse with exertion and is then accompanied with shortness of breath. The symptoms will improve but not go away with rest. She has not been taking any medications for the pain as she is reluctant to cause worsening GERD symptoms. This is different than her chronic back pain which is in the lumbar area. She admits to a flare of her psoriatic arthritis during the Covid illness as she was unable to receive her usual dose of Remicade. Her other symptoms have improved: She has no more fever, body aches or GI upset. She is able to eat and drink without difficulty. She developed a posterior headache with neck pain yesterday evening, but it is much improved today and is reduced to a dull ache even though she took no medications. She was sent to the ER by her stores despatch hand after several blood pressure readings at home were very high, up to 180/111. She was using a blood pressure cuff delivered by the office nurse as this was a telehealth call. She is being seen by cardiology for an echo finding of pulmonary insufficiency, which cardiology has said is inconsequential. Note that she has had a normal cardiac catheterization 4 to 5 years ago in [place]: According to the patient there were no vessel blockages and she did not require stents.. 18:06 I reviewed Angelia's past history of pulmonary embolus: [facility] She developed a PE in 2017 after receiving IVIG therapy, although it was never determined whether that was related. She was on anticoagulants for several months which she has since discontinued. She was being worked up by hematology for clotting disorder, but says that all of the investigations were never completed.. 20:52 I reviewed past radiology studies: An x-ray of the L-spine [facility] 07/29/2021 showed degenerative joint disease. CT chest 05/10/2020 was normal. Gallbladder ultrasound 03/04/2019 showed a normal gallbladder with no stones.. 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 gabapentin 300 mg Oral tab three times a day (Last dose: 10/16/2020 13:45) 2. omeprazole 20 mg Oral TbEC daily (Last dose: 10/16/2020 08:00) 3. remicade infusions (Last dose: 09/14/2000 08:00) 4. ropinirole 1 mg Oral tab 1 tab I mg in am and in afternoon and 2 mg at bedtime (Last dose: 10/16/2020 13:45) 5. Vitamin B-12 Oral chew (Last dose: 10/16/2020 08:00) - PMHx: ARTHRITIS; CHRONIC BACK PAIN; GERD; liver failure; LUPUS; myasthenia gravis; psoriasis arthritis; pulmonary emboli ([id number]); - PSHx: Port Placement; R-hip repair; R-knee repair; spinal fusion; - Med Reconciliation:: Green Alert: The patient's med list is complete to the best of the nurse's/provider's knowledge. Medications reviewed, verbally from patient/family. - Immunization history: The patients tetanus immunization is up to date. Flu vaccine is up to date. Pneumococcal vaccine is up to date. - Advance directive: Yes, Patient's health proxy is Daughter Ирина Kaplan. - Family History:: mother is . Father is . - Social History: Preferred Language: Ivorian Smoking status (Tobacco): Patient states they are a former tobacco smoker, quit smoking 20 years ago. ROS: 16:43 Chest See HPI. Cardiovascular: See HPI. Respiratory: See bjh HPI. Back: See HPI. Neuro: See HPI. All other systems are negative. Exam: 16:43 Head/Face: Normocephalic, atraumatic. Eyes: Pupils equal [facility] round and reactive to light, extra-ocular motions intact. Lids and lashes normal. Conjunctiva and sclera are non-icteric and not injected. Cornea within normal limits. Periorbital areas with no swelling, redness, or edema. 16:43 Neck: Trachea midline, no thyromegaly or masses palpated, and no cervical lymphadenopathy. Supple, full range of motion without nuchal rigidity, or vertebral point tenderness. No Meningismus. Chest/axilla: Normal chest wall appearance and motion. Nontender with no deformity. No lesions are appreciated. 16:43 Back: No spinal tenderness. No costovertebral tenderness. Full range of motion. Skin: Warm, dry with normal turgor. Normal color with no rashes, no lesions, and no evidence of cellulitis. MS/ Extremity: Pulses equal, no cyanosis. Neurovascular intact. Full, normal range of motion. 16:43 Constitutional: The patient appears to have no acute distress, appears afebrile, appears alert, appears to be awake, appears comfortable, is not diaphoretic, does not appear to be toxic, is obese. 16:43 ENT: External ear(s): are unremarkable. 16:43 Cardiovascular: Rate: normal, actual rate is 98 bpm, Rhythm: regular, Pulses: Pulses are 2+ in right radial artery, right dorsalis pedis artery, left radial artery and left dorsalis pedis artery. Heart sounds: normal, Edema: is not appreciated. 16:43 Respiratory: the patient does not display signs of respiratory distress, Respirations: normal, Breath sounds: rales, are not appreciated, wheezing, that is mild, is heard in the left upper lobe and left posterior upper lobe. 16:43 Abdomen/GI: Inspection: obese, Bowel sounds: active, all quadrants, Palpation: abdomen is soft and non-tender, in all quadrants, voluntary guarding, is not appreciated, mass, is not appreciated, rebound tenderness, is not appreciated, no appreciated organomegaly, Indicators: Hua's sign is negative, Liver: no appreciated palpable abnormalities. 16:43 Neuro: Orientation: is normal, to person, place, time & situation. Mentation: is normal, Motor: moves all fours, Gait: is steady, at a normal pace, without difficulty. Vital Signs: 15:30 BP 133 / 82 LA Sitting (auto/reg); Pulse 98; Resp 20; Temp cmm 97.9(TE); Pulse Ox 97% ; Weight 109.32 kg; Height 5 ft. 3 in. (160.02 cm); Pain 4/10; 17:14 BP 126 / 79; Pulse 82; Resp 19; Pulse Ox 97% on R/A; awr 19:13 BP 121 / 82; Pulse 79; Resp 17; Temp 97.0(TE); Pulse Ox 98% jc3 on R/A; 20:54 BP 132 / 87; Pulse 69; Resp 18; Temp 97.6(TE); Pulse Ox 97% jc3 on R/A; 15:30 Body Mass Index 42.69 (109.32 kg, 160.02 cm) cmm MDM: 15:24 Patient medically screened. darcy 16:48 ECG: The ECG on this patient demonstrates no evidence of bjh ischemia, a normal ECG. normal sinus rhythm Other Rate 87 bpm. Normal axis. Normal PA 159 ms, normal QRS 88 ms, normal QTC 392 ms. There is no abnormal ST elevation or depression and T waves are normal. No premature beats. There is no old EKG available for comparison at this time. 20:39 Patient medically screened. [facility] 20:43 Data reviewed: vital signs, nurses notes, lab test [facility] result(s), EKG, radiologic studies, CT scan, plain films. ED course: Day 14 of COVID-19. Presented with upper back pain that is likely musculoskeletal in nature, as the CT chest for PE showed normal blood vessels and lung tissue. EKG and troponin are also normal. She has been well-looking, nontoxic and in no acute distress while in the ER. She was initially referred to the ER by cardiology because of elevated blood pressure readings that she had taken herself at home, but all blood pressure readings here have been completely normal. The most recent reading is 121/82. I have reassured her that her blood pressure is normal. I have recommended Tylenol, ice packs and warm packs for her back discomfort and have also advised her to contact the infusion clinic to schedule her next Remicade infusion, as she missed a dose during her COVID-19 illness and psoriatic arthritis may be contributing to her symptoms. Angelia is agreeable with this plan. She has had the opportunity to ask questions and has expressed good understanding of all instructions and discussion.. 10/16 16:34 Order name: Cbc With Auto Differential; Complete Time: 17:40b 10/16 17:40 Interpretation: Abnormal: WBC 14.5; MCV 78.2; MCH 26.3; RDW bjh 14.9; Neut# (AUTO) 9.6; Lymph# (AUTO) 3.7. 10/16 16:34 Order name: Comprehensive Metabolic Prof.; Complete Time: [facility] 17:55 10/16 17:55 Interpretation: Abnormal: CREAT 0.67; ALK PHOS 129. [facility] 10/16 16:34 Order name: Lip ase; Complete Time: 17:55 [facility] 10/16 17:55 Interpretation: Within normal limits: LIP 109. [facility] 10/16 16:34 Order name: MG (Magnesium); Complete Time: 17:55 [facility] 10/16 17:55 Interpretation: Within normal limits: MG 2.00. [facility] 10/16 16:34 Order name: Partial Thromboplastin Time; Complete Time: [facility] 17:55 10/16 17:56 Interpretation: Within normal limits: PTT 27.6. [facility] 10/16 16:34 Order name: Prothrombin Time; Complete Time: 17:55 [facility] 10/16 17:56 Interpretation: Within normal limits: PT 11.9. [facility] 10/16 16:34 Order name: Troponin I; Complete Time: 17:56 [facility] 10/16 17:56 Interpretation: Within normal limits: TROP I < 0.045. [facility] 10/16 16:34 Order name: CXR Portable (Chest Pain); Complete Time: 17:40 [facility] 10/16 16:34 Order name: Emergency Room EKG Order - Use EKG Work-Up [facility] /Quick Select; Complete Time: 16:46 10/16 16:34 Order name: Cardiology EKG Interpretation - Choose Reason [facility] for Test 10/16 16:34 Order name: Iv Saline Lock; Complete Time: 17:15 [facility] 10/16 18:05 Order name: CT Chest for PE with contrast (choose symptom); [facility] Complete Time: 21:50 10/16 21:50 Interpretation: No acute disease. [facility] 10/16 20:39 Order name: UA.; Complete Time: 09:58 [facility] 10/17 09:58 Interpretation: Within normal limits. [facility] 10/16 16:34 Order name: Place Patient On Monitor; Complete Time: 17:15 [facility] 10/16 16:38 Order name: Vital Signs - Recheck: Blood pressure only ; [facility] Complete Time: 17:15 10/16 20:39 Order name: Collect Urine - Clean Catch; Complete Time: [facility] 20:45 Dispensed Medications: 16:46 Drug: Ventolin 2 puffs [Ventolin HFA 90 mcg/actuation awr aerosol inhaler (2 puffs)] Route: Inhalation; 17:00 Follow up: Response: Symptoms have improved. 3 Disposition Summary: 10/16/20 20:39 Discharge Ordered Location: Home/Self Care [facility] Condition: Good [facility] Diagnosis - Acute Upper Back Pain, Thoracic h Followup: [facility] - With: Valerie Tarango MD - When: As needed - Reason: If symptoms persist Followup: [facility] - With: Emergency Department - When: As needed - Reason: Worsening of condition Discharge Instructions: - Discharge Summary Sheet [facility] - Thoracic Strain [facility] Fo yolanda: - Medication Reconciliation [facility] Signatures: Dispatcher [employer] Jeannette Basilio RN RN cmm Healey, Brenda, MD MD [facility] Ainsley Servin RN RN jc3 William Mckenna RN RN awr Lent, Meade, NP NP mel Corrections: (The following items were deleted from the chart) 15:39 15:34 PMHx: rls; cmm cmm 16:42 16:06 PMH PSORIATIC ARTHRITIS, CHRONIC BACK PAIN S/P SPINAL [facility] FUSION, LUPUS, MYASTHENIA GRAVIS, GERD, LIVER FAILURE, PE. . [facility] 16:43 16:06 PMH PSORIATIC ARTHRITIS, CHRONIC BACK PAIN S/P SPINAL bjh FUSION, LUPUS, MYASTHENIA GRAVIS, GERD, LIVER FAILURE, PE. Angelia developed symptoms on 10/03/2020 of cough, headache, body aches, loss of taste and smell, and mild gastric upset. She tested positive for Covid on 10/10. Shortly after developing symptoms she began to experience a vague constant ache across her back between her shoulder blades that radiates around to the center of her chest. It seems slightly worse with movements, deep breathing and coughing, but is definitely worse with exertion and is then accompanied with shortness of breath. The symptoms will improve but not go away with rest. She has not been taking any medications for the pain as she is reluctant to cause worsening GERD symptoms. Her other symptoms have improved: She has no more fever, body aches or GI upset. She is able to eat and drink without difficulty. She developed a posterior headache with neck pain yesterday evening, but it is much improved today and is reduced to a dull ache even though she took no medications. She was sent to the ER by her stores despatch hand after several blood pressure readings at home were very high, up to 180/111. She was using a blood pressure cuff delivered by the office nurse as this was a telehealth call. She is being seen by cardiology for an echo finding of pulmonary insufficiency, which cardiology has said is inconsequential. Note that she has had a normal cardiac catheterization 4 to 5 years ago in [place]: According to the patient there were no vessel blockages and she did not require stents.. [facility] Name Value Range Interpretation Code Description Data Ekta rce(s) Supporting Document(s) ID Date Data Source [id number] 10/16/2020 03:20:00 PM [facility] Name: ANGELIA ARTHUR [facility] Rec #: [id number] : 1965 Age/Sex: 54F Date of Service: 10/16/20 NURSE CHART Nurse's Notes [facility] Name: Angelia Arthur Age: 54 yrs Sex: Female : 1965 Arrival Date: 10/16/2020 Time: 15:20 Bed EDRU-1 Private MD: Valerie Taarngo L Diagnosis: Acute Upper Back Pain, Thoracic Presentation: 10/16 15:21 Transition of care: patient was not received from another critical access hospital setting of care. Presenting complaint: Patient states - States is Covid Positive . States Her Blood Pressure was 188/111 on phone call with Her Machine Molder and was told to come to ED for evaluation. States is short of breath also. States ongoing headache for about a week and back pain across med back. Have you travelled in the last 30 days? No. Have you had contact with an individual with a confirmed diagnosis of Ebola or COVID-19? Yes, COVID-19: fever OR Cough OR SOB present. 15:21 Method Of Arrival: Walk-In critical access hospital 15:21 Acuity: Urgent - 3 critical access hospital Triage Assessment: 15:24 Suicide Screening: Have you had thoughts of harming critical access hospital yourself or others? No. The patient appears to have some mild discomfort, The patient is cooperative. Patient states the pain is currently a 4 / 10. 15:27 SEPSIS SCREEN: A Confirmed or Suspected Infection is cmm Unknown, their temperature is not <96.8 or > 100.9, their heart rate is >90, their RR is not >20. 15:32 The patient complains of pain in left parietal area and cmm right parietal area. The patient also complains of pain in left subscapular area and right subscapular area. The patient states the pain began 1weeks ago. 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 gabapentin 300 mg Oral tab three times a day (Last dose: 10/16/2020 13:45) 2. omeprazole 20 mg Oral TbEC daily (Last dose: 10/16/2020 08:00) 3. remicade infusions (Last dose: 09/14/2000 08:00) 4. ropinirole 1 mg Oral tab 1 tab I mg in am and in afternoon and 2 mg at bedtime (Last dose: 10/16/2020 13:45) 5. Vitamin B-12 Oral chew (Last dose: 10/16/2020 08:00) - PMHx: ARTHRITIS; CHRONIC BACK PAIN; GERD; liver failure; LUPUS; myasthenia gravis; psoriasis arthritis; pulmonary emboli ([id number]); - PSHx: Port Placement; R-hip repair; R-knee repair; spinal fusion; - Med Reconciliation:: Green Alert: The patient's med list is complete to the best of the nurse's/provider's knowledge. Medications reviewed, verbally from patient/family. - Immunization history: The patients tetanus immunization is up to date. Flu vaccine is up to date. Pneumococcal vaccine is up to date. - Advance directive: Yes, Patient's health proxy is Daughter Ирина Kaplan. - Family History:: mother is . Father is . - Social History: Preferred Language: Ivorian Smoking status (Tobacco): Patient states they are a former tobacco smoker, quit smoking 20 years ago. Screenin:43 Abuse screen: Denies threats or abuse. Denies injuries from jc3 another. Nutritional screening: No deficits noted. Patient has no identifiable fall risk (Abdi Scale: 0 points). 15:55 AUDIT 1. How often do you have a drink containing alcohol? jc3 Never (0 points). Drug Abuse Screening Test: 1. Have you used drugs other than those required for medical reasons? No (0 points), screen is complete, no risk. Assessment: 15:54 See Triage Assessment. [facility] Vital Signs: 15:30 BP 133 / 82 LA Sitting (auto/reg); Pulse 98; Resp 20; Temp cmm 97.9(TE); Pulse Ox 97% ; Weight 109.32 kg; Height 5 ft. 3 in. (160.02 cm); Pain 4/10; 17:14 BP 126 / 79; Pulse 82; Resp 19; Pulse Ox 97% on R/A; awr 19:13 BP 121 / 82; Pulse 79; Resp 17; Temp 97.0(TE); Pulse Ox 98% jc3 on R/A; 20:54 BP 132 / 87; Pulse 69; Resp 18; Temp 97.6(TE); Pulse Ox 97% jc3 on R/A; 15:30 Body Mass Index 42.69 (109.32 kg, 160.02 cm) cm ED Course: 15:20 Patient arrived in ED. tb6 15:21 Valerie Tarango MD is Private Physician. [facility] 15:24 Triage completed. [facility] 15:24 Jonathan Hahn NP is PHCP. darcy 15:24 Purvi Ortega MD is Attending Physician. darcy 15:32 Arm band placed on right wrist. cm 15:39 Ainsley Servin, CECY is Primary Nurse. cmm 15:43 Patient placed in exam room Patient has correct armband on jc3 for positive identification. Placed in gown. Bed in low position. Call light in reach. Side rails up X 1. 15:43 Patient has correct armband on for positive identification, jc3 Placed in gown, Bed in low position, Call light in reach, Side rails up X 1. 15:45 Ondina Mcrae MD is Attending Physician. [facility] 16:40 An EKG was obtained and reviewed by Ondina Mcrae MD. awr 16:46 Radiology: a portable X-ray was completed at 16:46. awr 16:46 Cardiology EKG Interpretation - Choose Reason for Test Sent.awr 16:46 CXR Portable (Chest Pain) Sent. awr 17:14 Labs drawn by ED staff. Inserted peripheral IV: 20 gauge in awr palmar aspect of left wrist and blood collected. 17:15 monitor worker on. awr 18:55 Radiology: The patient went to get his/her CT at 18:55. jc3 18:55 No procedures ordered. jc3 18:55 CT Chest for PE with contrast (choose symptom) Sent. jc3 19:12 Radiology: Patient returned from CT at 19:12. jc3 20:00 Diet: Patient given water. 3 20:38 Valerie Tarango MD is Referral Physician. [facility] 20:42 Urine collected. Clean catch specimen. jc3 20:54 Discontinued IV lock intact, bleeding controlled, pressure jc3 dressing applied, No redness/swelling at site. Administered Medications: 16:46 Drug: Ventolin 2 puffs [Ventolin HFA 90 mcg/actuation awr aerosol inhaler (2 puffs)] Route: Inhalation; 17:00 Follow up: Response: Symptoms have improved. 3 Outcome: 20:39 Discharge ordered by MD. [facility] 20:54 Reassessment: No Change in symptoms. 3 20:54 Patient verbalized understanding of disposition instructions. Patient has no functional deficits. 20:54 Patient discharged to home ambulatory. 20:54 Condition: stable Condition: unchanged 20:54 Discharge instructions given to patient, Patient was instructed on discharge instructions, follow up and referral plans, medication usage, The patient demonstrated understanding of instructions, medications, No prescriptions given. 20:54 Vitals are Complete in accordance with Emergency Department Policy. 20:56 Patient left the ED. 3 10/17 07:58 24 hour call back N/A - patient was admitted md1 Signatures: Jeannette Lara RN RN cmm Healey, Brenda, MD MD [facility] Ainsley Servin RN RN jc3 Destiney Arrieta RN RN md1 William Mckenna RN RN awr Lent, Meade, INSULATION WORKER INSULATION WORKER darcy [place], Bessie tb6 Corrections: (The following items were deleted from the chart) 10/16 15:27 15:21 Presenting complaint: Patient states - States is cmm Covid Positive . States Her Blood Pressure was 18 8/111 on phone call with Her Machine Molder and was told to come to ED for evaluation. States is short of breath also cmm 15:39 15:34 PMHx: rls; cmm cmm Name Value Range Interpretation Code Description Data Ekta rce(s) Supporting Document(s) ID Date Data Source [id number] 10/16/2020 10:58:00 PM [facility] Name Value Range Interpretation Code Description Data Ekta rce(s) Supporting Document(s) Color,Urine Yellow Normal (applies to non-numeric resu lts) [facility] Clarity,Urine Clear Normal (applies to non-numeric re sults) [facility] Specific [place],Urine 1.001-1.030 Normal (applies to non- numeric results) [facility] PH,Urine 5.0-8.0 Normal (applies to non-numeric resul ts) [facility] Protein,Urine Negative Normal (applies to non-numeric re sults) [facility] Glucose,Urine (UA) Negative Normal (applies to non-numer ic results) [facility] Ketones,Urine Negative Normal (applies to non-numeric re sults) [facility] Blood,Urine Negative Normal (applies to non-numeric resu lts) [facility] Bilirubin,Urine Negative Normal (applies to non-numeric results) [facility] Urobilinogen,Urine Norm 0.2-1 Normal (applies to non-numer ic results) [facility] Leukocyte Esterase,Urine Negative Normal (applies to non -numeric results) [facility] Nitrite,Urine Negative Normal (applies to non-numeric re sults) [facility] ID Date Data Source [id number] 10/17/2020 01:33:00 PM [facility] Hospital Name: ANGELIA ARTHUR : 1965 Age/Sex: 54F Ordering Provider: Ondina Mcrae MD Med Rec #: [id number] Reg Status: [facility] Room #: Date of Service: 10/16/20 Report Number: [id number] cc:Ondina Mcrae MD; Valerie Tarango MD Send Report To: [id number] CT/CT Chest for PE with Contrast Reason for exam: BACK PAIN, HX PE, COVID POSITIVE; PAIN - CHEST FINDINGS: The neck base is clear. The lungs are clear. The heart is normal in size. No lymphadenopathy. No pulmonary embolism. The visualized upper abdomen demonstrates fatty infiltration of the liver. No acute osseous abnormality. IMPRESSION: NO PULMONARY EMBOLISM. NO ACUTE PULMONARY PROCESS. FATTY LIVER. While performing the above CT exam, the following dose reduction techniques wereused: *Automated exposure control *Adjustment of the mA and/or kV according to patient size *Use of iterative reconstruction technique CT Dose in mSv: 6.2 Contrast Agent in ml: Isovue 370 65 Method of Administration: Intraveneous REPORT SIGNATURE ON FILE Reported By: Javon Chen MD <Electronically signed by Javon Chen MD> 10/18/20 1140 Dictation Date/Time: 10/16/202028 Transcribed Date/Time: 10/17/20 1333 Medicaid Analyst: LUAN Name Value Range Interpretation Code Description Data Ekta rce(s) Supporting Document(s) ID Date Data Source [id number] 10/16/2020 05:56:00 PM [facility] Value Range Interpretation Code Description Data Ekta rce(s) Supporting Document(s) Troponin I 0.000-0.045 Normal (applies to non-numeric resu lts) [facility] ID Date Data Source [id number] 10/16/2020 05:54:00 PM [facility] Name Value Range Interpretation Code Description Data Ekta rce(s) Supporting Document(s) PT 9.4-12.5 Normal (applies to non-numeric results) [facility] INR Normal (applies to non-numeric results) [facility] The use of the INR is restricted to roger ents on stable oral anticoagulant. Therapeutic Range: 2.0-3.0 High Risk Values: 2.5-3.5 ID Date Data Source [id number] 10/16/2020 05:54:00 PM [facility] Name Value Range Interpretation Code Description Data Ekta rce(s) Supporting Document(s) PTT 25.1-36.5 Normal (applies to non-numeric resul ts) [facility] ID Date Data Source [id number] 10/16/2020 05:54:00 PM EST [facility] Name Value Range Interpretation Code Description Data Ekta rce(s) Supporting Document(s) Sodium 140 mmol/L 137-145 Normal (applies to non-numeric resul ts) [facility] Potassium 3.5-5.1 Normal (applies to non-numeric resul ts) [facility] Chloride 107 mmol/L 98-112 Normal (applies to non-numeric resul ts) [facility] Carbon Dioxide CO2 22.0-33.0 Normal (applies to non-numer ic results) [facility] Anion Gap 4.0-11.0 Normal (applies to non-numeric resul ts) [facility] BUN 16 mg/dL 7-17 Normal (applies to non-numeric resul ts) [facility] Creatinine 0.70-1.20 Below low normal [facility] GFR >60 Normal (applies to non-numeric results) [facility] Healthcare Result based on MDRD formula. Glucose Level 86 mg/dL 74-99 Normal (applies to non-numeric re sults) [facility] The reference range is only applicable w hen fasting. Calcium-Uncorrected 8.4-10.2 Normal (applies to non-nume yahir results) [facility] Corrected Calcium 8.4-10.2 Normal (applies to non-numeri c results) [facility] Bilirubin,Total 0.2-1.3 Normal (applies to non-numeric results) [facility] SGOT(AST) 25 U/L 14-36 Normal (applies to non-numeric resul ts) [facility] SGPT(ALT) 41 U/L 9-52 Normal (applies to non-numeric resul ts) [facility] Alkaline Phosphatase 129 U/L 38-126 Above high normal [facility] can increase Alkaline Phosp le vels up to 2 times the normal adult value. Normal values for children and adolescents are 2 to 3 times the normal adult value. Total Protein 6.3-8.2 Normal (applies to non-numeric re sults) [facility] Albumin 3.5-5.0 Normal (applies to non-numeric resul ts) [facility] ID Date Data Source [id number] 10/16/2020 05:54:00 PM EST [facility] Name Value Range Interpretation Code Description Data Ekta rce(s) Supporting Document(s) Magnesium 1.80-2.40 Normal (applies to non-numeric resul ts) [facility] ID Date Data Source [id number] 10/16/2020 05:54:00 PM EST [facility] Name Value Range Interpretation Code Description Data Ekta rce(s) Supporting Document(s) Lipase 109 U/L 73-393 Normal (applies to non-numeric resul ts) [facility] ID Date Data Source [id number] 10/16/2020 05:38:00 PM EST [facility] Name Value Range Interpretation Code Description Data Ekta rce(s) Supporting Document(s) White Blood Count 4.8-10.8 Above high normal [facility] Red Blood Count 3.68-5.22 Normal (applies to non-numeric results) [facility] Hemoglobin 11.2-15.7 Normal (applies to non-numeric resul ts) [facility] Hematocrit 34.1-44.9 Normal (applies to non-numeric resul ts) [facility] Mean Corpuscular Volume 81-99 Below low normal [facility] Mean Corpuscular Hemoglobin 27.0-33.0 Below low normal [facility] Mean Corpuscular HGB Conc 32.0-36.0 Normal (applies to no n-numeric results) [facility] Red Cell Distribution Width 11.5-14.5 Above high normal [facility] Platelet Count 281 X10 3/uL 130-450 Normal (applies to non-numeric results) [facility] Mean Platelet Volume 9.5-12.7 Normal (applies to non-num salome results) [facility] Imm Grans% (AUTO) 1 % 0-2 Normal (applies to non-numeri c results) [facility] Neutrophils % (AUTO) 67 % 40-75 Normal (applies to non-num salome results) [facility] Lymphocytes % (AUTO) 26 % 21-46 Normal (applies to non-num salome results) [facility] Monocytes % (AUTO) 6 % 5-12 Normal (applies to non-numer ic results) [facility] Eosinophils % (AUTO) 1 % 1-5 Normal (applies to non-num salome results) [facility] Basophils % (AUTO) 0 % 0-1 Normal (applies to non-numer ic results) [facility] Imm Grans# (AUTO) 0.0-0.5 Normal (applies to non-numeri c results) [facility] Neutrophils # (AUTO) 1.5-8.1 Above high normal [facility] Lymphocytes # (AUTO) 1.0-3.1 Above high normal [facility] Monocytes # (AUTO) 0.2-1.3 Normal (applies to non-numer ic results) [facility] Eosinophils# (AUTO) 0.0-0.5 Normal (applies to non-nume yahir results) [facility] Basophils # (AUTO) 0.0-0.1 Normal (applies to non-numer ic results) [facility] ID Date Data Source [id number] 10/17/2020 01:26:00 PM [facility] Name: ANGELIA ARTHUR : 1965 Age/Sex: 54F Ordering Provider: Ondina Mcrae MD Med Rec #: [id number] Reg Status: [facility] ER Room #: Date of Service: 10/16/20 Report Number: [id number] cc:Valerie Tarango MD Send Report To: [id number] XRP/XR Chest Xray Portable Reason for exam: _PAIN - CHEST Comparison is made to 05/15/20 FINDINGS: There is no evidence of acute consolidation or congestive heart failure. The heart is not enlarged. There is no hilar adenopathy. The right hemidiaphragm is elevated. A left sided indwelling central venous catheter is in place as previous. IMPRESSION: No evidence of significant acute pulmonary disease. Fluoroscopy time in seconds: Number of Exposures: Time Portable Image Performed: 1650 Contrast Agent in ml: Method of Administration: REPORT SI GNATURE ON FILE Reported By: Ga Mendez MD <Electronically signed by Ga Mendez MD> 10/18/20 1131 Dictation Date/Time: 10/16/20 1722 Transcribed Date/Time: 10/17/20 1326 Medicaid Analyst: CAMPOS Name Value Range Interpretation Code Description Data Ekta rce(s) Supporting Document(s) ID Date Data Source [id number] 10/17/2020 07:07:00 PM [facility] Name: ANGELIA ARTHUR : 1965 Age/Sex: 54F Ordering Provider: Ondina Mcrae MD Med Rec #: [id number] Reg Status:[facility] Room #: Date of Service: 10/16/20 Report Number: [id number] cc: Ondina Mcrae MD; Valerie Tarango MD Send Report To: Reason for exam: Chest Pain SINUS RHYTHM LOW QRS VOLTAGE IN PRECORDIAL LEADS BORDERLINE ECG WARNING: DATA QUALITY MAY AFFECT INTERPRETATION LOW VOLTAGE IS NEW Physician [employer] Mechanic: Win Roberts M.D. ECG HEART RATE: 87 /min ECG RR INTERVAL: 682 ms ECG P DURATION: 111 ms ECG QRS DURATION: 88 ms ECG PA INTERVAL: 159 ms ECG QT INTERVAL: 347 ms ECG QTC INTERVAL: 394 ms Q-T dispersion: ms ECG P AXIS: 55 deg ECG QRS AXIS: 59 deg ECG T AXIS: 48 deg REPORT SIGNATURE ON FILE 10/17/20 1908 Reported By: Win Roberts MD <<Signature on File>> Exam Date/Time: 10/16/20 1640 Order #: [id number] Dictation Date/Time: 10/17/201906 Transcribed Date/Time: 10/17/201906 Medicaid Analyst: VALDO Name Value Range Interpretation Code Description Data Ekta rce(s) Supporting Document(s) ID Date Data Source [id number] 10/14/2020 10:18:00 AM EST [facility] Name Value Range Interpretation Code Description Data Ekta rce(s) Supporting Document(s) Respiratory specimen severe acute respir atory syndrome coronavirus 2 (SARS-CoV-2) RNA [facility] This lab was ordered by [facility] and reported by . ID Date Data Source [id number] 10/08/2020 03:10:00 PM EST [facility] Name Value Range Interpretation Code Description Data Ekta rce(s) Supporting Document(s) SARS-CoV-2 RNA INHOUSE Negative [facility] THIS IS A [facility] REPORTABLE COMMUNICABLE DISEASE. Results called 10/08/20 1509,JOSE/STEPHANIE ALIS read back information to [email or web address] Testing was performed using the eshtery COVID-19 MDx Assay. This test has been authorized by FDA under an (Emergency Use Authorization) EUA for use by authorized laboratories for individuals who are suspected of COVID-19 by their healthcare provider. This test is only authorized for the duration of the declaration that circumstances exist justifying the authorization of emergency use of in vitro diagnostic tests for detection and/or diagnosis of SARS-CoV-2. Methodology: Endpoint RT-PCR. Fact sheets for this EUA assay can be found at the following links: Providers: https://www.fda.gov/media/576331/download Patients : https://www.fda.gov/media/875939/download THIS IS A [facility] REPORTABLE COMMUNICABLE DISEASE Positive results are indicative of the presence of UMSU-QoB-WOV; clinical correlation with patient history and other diagnostic information is necessary to determine patient infection status. The agent detected may not be the definite cause of disease. Positive results do not rule out bacterial infection or co-infection with other viruses. ID Date Data Source [id number] 09/24/2020 06:41:00 AM EST [facility] Name Value Range Interpretation Code Description Data Ekta rce(s) Supporting Document(s) Sodium 138 mmol/L 137-145 Normal (applies to non-numeric resul ts) [facility] Potassium 3.5-5.1 Normal (applies to non-numeric resul ts) [facility] Chloride 106 mmol/L 98-112 Normal (applies to non-numeric resul ts) [facility] Carbon Dioxide CO2 22.0-33.0 Normal (applies to non-numer ic results) [facility] Anion Gap 4.0-11.0 Normal (applies to non-numeric resul ts) [facility] BUN 17 mg/dL 7-17 Normal (applies to non-numeric resul ts) [facility] Creatinine 0.70-1.20 Below low normal [facility] GFR >60 Normal (applies to non-numeric results) [facility] Result based on MDRD formula. Glucose Level 91 mg/dL 74-99 Normal (applies to non-numeric re sults) [facility] The reference range is only applicable w hen fasting. Calcium-Uncorrected 8.4-10.2 Normal (applies to non-nume yahir results) [facility] Corrected Calcium 8.4-10.2 Normal (applies to non-numeri c results) [facility] Bilirubin,Total 0.2-1.3 Normal (applies to non-numeric results) [facility] SGOT(AST) 24 U/L 14-36 Normal (applies to non-numeric resul ts) [facility] SGPT(ALT) 43 U/L 9-52 Normal (applies to non-numeric resul ts) [facility] Alkaline Phosphatase 126 U/L 38-126 Normal (applies to non-num salome results) [facility] can increase Alkaline Phosp le vels up to 2 times the normal adult value. Normal values for children and adolescents are 2 to 3 times the normal adult value. Total Protein 6.3-8.2 Normal (applies to non-numeric re sults) [facility] Albumin 3.5-5.0 Normal (applies to non-numeric resul ts) [facility] ID Date Data Source [id number] 09/24/2020 06:41:00 AM EST [facility] Name Value Range Interpretation Code Description Data Ekta rce(s) Supporting Document(s) C-Reactive Protein,Wide Range <3.00 Above high normal [facility] ID Date Data Source [id number] 09/24/2020 06:41:00 AM EST [facility] Name Value Range Interpretation Code Description Data Ekta rce(s) Supporting Document(s) White Blood Count 4.8-10.8 Above high normal [facility] Red Blood Count 3.68-5.22 Normal (applies to non-numeric results) [facility] Hemoglobin 11.2-15.7 Normal (applies to non-numeric resul ts) [facility] Hematocrit 34.1-44.9 Normal (applies to non-numeric resul ts) [facility] Mean Corpuscular Volume 81-99 Below low normal [facility] Mean Corpuscular Hemoglobin 27.0-33.0 Below low normal [facility] Mean Corpuscular HGB Conc 32.0-36.0 Normal (applies to no n-numeric results) [facility] Red Cell Distribution Width 11.5-14.5 Above high normal [facility] Platelet Count 294 X10 3/uL 130-450 Normal (applies to non-numeric results) [facility] Mean Platelet Volume 9.5-12.7 Normal (applies to non-num salome results) [facility] Imm Grans% (AUTO) 1 % 0-2 Normal (applies to non-numeri c results) [facility] Neutrophils % (AUTO) 62 % 40-75 Normal (applies to non-num salome results) [facility] Lymphocytes % (AUTO) 29 % 21-46 Normal (applies to non-num salome results) [facility] Monocytes % (AUTO) 7 % 5-12 Normal (applies to non-numer ic results) [facility] Eosinophils % (AUTO) 1 % 1-5 Normal (applies to non-num salome results) [facility] Basophils % (AUTO) 0 % 0-1 Normal (applies to non-numer ic results) [facility] Imm Grans# (AUTO) 0.0-0.5 Normal (applies to non-numeri c results) [facility] Neutrophils # (AUTO) 1.5-8.1 Normal (applies to non-num salome results) [facility] Lymphocytes # (AUTO) 1.0-3.1 Above high normal [facility] Monocytes # (AUTO) 0.2-1.3 Normal (applies to non-numer ic results) [facility] Eosinophils# (AUTO) 0.0-0.5 Normal (applies to non-nume yahir results) [facility] Basophils # (AUTO) 0.0-0.1 Normal (applies to non-numer ic results) [facility] ID Date Data Source [id number] 09/24/2020 06:41:00 AM [facility] Name Value Range Interpretation Code Description Data Ekta rce(s) Supporting Document(s) Erythrocyte Sedimentation ESR 34 mm/hr 0-20 Above high normal [facility] ID Date Data Source [id number] 09/12/2020 09:24:00 AM [facility] Name: ANGELIA ARTHUR : 1965 Age/Sex: 54F Ordering Provider: LA Naidu Med Rec #: [id number] Reg Status: DEP REF Room #: Date of Service: 08/22/20 Report Number: [id number] cc:Valerie Tarango MD; LA Naidu Send Report To: [id number] XRP/XR Steroid Injection Hip Rt [id number] XRP/XR Fluoro Needle Placement Reason for exam: RIGHT HIP PAIN FINDINGS: Using sterile technique the skin was prepped and draped in normal sterile fashion and ane sthetized with 1 mL of sub-q lidocaine and 5 mL of deeperlidocaine. The hip was injected with 80 mg of Depo-Medrol and 3 mL of 0.5% ropivacaine and 2 mL of 1% lidocaine. Pain went from a 4/10 to 0/10 after the procedure. One image was obtained with 12 seconds of fluoro time. Fluoroscopy time in seconds: 12 Number of Exposures: 1 Time Portable Image Performed: Contrast Agent in ml: Method of Administration: REPORT SIGNATURE ON FILE Reported By: Win Restrepo MD <Electronically signed by Patrick Restrepo MD> 09/12/20 0952 Dictation Date/Time: 09/11/20 1558 Transcribed Date/Time: 09/12/2024 Medicaid Analyst: CAMPOS Name Value Range Interpretation Code Description Data Ekta rce(s) Supporting Document(s) ID Date Data Source [id number] 09/12/2020 09:24:00 AM [facility] Name: ANGELIA ARTHUR : 1965 Age/Sex: 54F Ordering Provider: LA Naidu [facility] Rec #: [id number] Reg Status: DEP REF Room #: Date of Service: 08/22/20 Report Number: [id number] cc:Valerie Tarango MD; LA Naidu Send Report To: [id number] XRP/XR Steroid Injection Hip Rt [id number] XRP/XR Fluoro Needle Placement Reason for exam: RIGHT HIP PAIN FINDINGS: Using sterile technique the skin was prepped and draped in normal sterile fashion and ane sthetized with 1 mL of sub-q lidocaine and 5 mL of deeperlidocaine. The hip was injected with 80 mg of Depo-Medrol and 3 mL of 0.5% ropivacaine and 2 mL of 1% lidocaine. Pain went from a 4/10 to 0/10 after the procedure. One image was obtained with 12 seconds of fluoro time. Fluoroscopy time in seconds: 12 Number of Exposures: 1 Time Portable Image Performed: Contrast Agent in ml: Method of Administration: REPORT SIGNATURE ON FILE Reported By: Win Restrepo MD <Electronically signed by Patrick Restrepo MD> 09/12/20 0952 Dictation Date/Time: 09/11/20 1558 Transcribed Date/Time: 09/12/20923 Medicaid Analyst: CAMPOS Name Value Range Interpretation Code Description Data Ekta rce(s) Supporting Document(s) ID Date Data Source [id number] 09/24/2020 02:37:00 AM EST [facility] Name Value Range Interpretation Code Description Data Ekta rce(s) Supporting Document(s) Erythrocyte Sedimentation ESR 26 mm/hr 0-20 Above high normal [facility] ID Date Data Source [id number] 09/24/2020 02:37:00 AM [facility] Name Value Range Interpretation Code Description Data Ekta rce(s) Supporting Document(s) White Blood Count 4.8-10.8 Above high normal [facility] Red Blood Count 3.68-5.22 Normal (applies to non-numeric results) [facility] Hemoglobin 11.2-15.7 Normal (applies to non-numeric resul ts) [facility] Hematocrit 34.1-44.9 Normal (applies to non-numeric resul ts) [facility] Mean Corpuscular Volume 81-99 Below low normal [facility] Mean Corpuscular Hemoglobin 27.0-33.0 Below low normal [facility] Mean Corpuscular HGB Conc 32.0-36.0 Normal (applies to no n-numeric results) [facility] Red Cell Distribution Width 11.5-14.5 Above high normal [facility] Platelet Count 257 X10 3/uL 130-450 Normal (applies to non-numeric results) [facility] Mean Platelet Volume 9.5-12.7 Normal (applies to non-num salome results) [facility] Imm Grans% (AUTO) 0 % 0-2 Normal (applies to non-numeri c results) [facility] Neutrophils % (AUTO) 63 % 40-75 Normal (applies to non-num salome results) [facility] Lymphocytes % (AUTO) 28 % 21-46 Normal (applies to non-num salome results) [facility] Monocytes % (AUTO) 7 % 5-12 Normal (applies to non-numer ic results) [facility] Eosinophils % (AUTO) 1 % 1-5 Normal (applies to non-num salome results) [facility] Basophils % (AUTO) 0 % 0-1 Normal (applies to non-numer ic results) [facility] Imm Grans# (AUTO) 0.0-0.5 Normal (applies to non-numeri c results) [facility] Neutrophils # (AUTO) 1.5-8.1 Normal (applies to non-num salome results) [facility] Lymphocytes # (AUTO) 1.0-3.1 Normal (applies to non-num salome results) [facility] Monocytes # (AUTO) 0.2-1.3 Normal (applies to non-numer ic results) [facility] Eosinophils# (AUTO) 0.0-0.5 Normal (applies to non-nume yahir results) [facility] Basophils # (AUTO) 0.0-0.1 Normal (applies to non-numer ic results) [facility] ID Date Data Source [id number] 08/18/2020 11:36:00 AM EST [facility] Name Value Range Interpretation Code Description Data Ekta rce(s) Supporting Document(s) Color,Urine Colorl-Dk Y Normal (applies to non-numeric res ults) [facility] Clarity,Urine Clear Normal (applies to non-numeric re sults) [facility] Specific [place],Urine 1.005-1.030 Normal (applies to non- numeric results) [facility] pH,Urine 5.0-8.0 Normal (applies to non-numeric resul ts) [facility] Protein,Urine Negative Normal (applies to non-numeric re sults) [facility] Glucose,Urine Negative Normal (applies to non-numeric re sults) [facility] Ketones,Urine Negative Normal (applies to non-numeric re sults) [facility] Blood,Urine Negative Normal (applies to non-numeric resu lts) [facility] Bilirubin,Urine Negative Normal (applies to non-numeric results) [facility] Urobilinogen,Urine 0.2-1.0 Normal (applies to non-numer ic results) [facility] Leukocyte Esterase,Urine Negative Normal (applies to non -numeric results) [facility] Nitrite,Urine Negative Normal (applies to non-numeric re sults) [facility] RBC,Urine None Seen [facility] WBC,Urine None Seen [facility] Casts,Urine None Seen Normal (applies to non-numeric resu lts) [facility] Epithelial Cells,Urine None - Few [facility] Bacteria,Urine None Seen [facility] ital Mucus,Urine None Seen [facility] ID Date Data Source [id number] 07/30/2020 07:20:00 AM EDT [facility] Name: ANGELIA ARTHUR : 1965 Age/Sex: 54F Ordering Provider: LA Naidu Med Rec #: [id number] Reg Status: [facility] Room #: Date of Service: 07/29/20 Report Number: [id number] cc:Valerie Tarango MD; LA Naidu Send Report To: [id number] XRP/XR L Spine 2 views Ap & Lat Reason for exam: LUMBAR RADICULAR PAIN FINDINGS: Spinous process distraction device posteriorly at L5-S1. DJD in the disk spaces and posterior articulations. Mild leftward curvature. No intrinsicbony lesions or fractures. IMPRESSION: Spinous process distraction device identified as described above. No acute abnormalities otherwise noted. Fluoroscopy time in seconds: Number of Exposures: Time Portable Image Performed: Contrast Agent in ml: Method of Administration: REPORT SIGNATURE ON FILE Reported By: Win Restrepo MD <Electronically signed by Patrick Restrepo MD> 07/30/20 0945 Dictation Date/Time: 07/29/20 1348 Transcribed Date/Time: 07/30/20 0720 Medicaid Analyst: JHONNY Name Value Range Interpretation Code Description Data Ekta rce(s) Supporting Document(s) ID Date Data Source [id number] 07/17/2020 05:47:00 AM EDT [facility] Imaging Services Department Imaging Report [address], [place] [address] %(RAD)RES..[email or web address].filter("line") Name: ANGELIA ARTHUR : 1965 Age/Sex: 54F Ordering Provider: Erick Sood MD Med Rec #: [id number] Reg Status: [facility] REF Room #: Date of Service: 07/16/20 Report Number: [id number] cc:Valerie Tarango MD; Erick Sood MD Send Report To: [id number] MRI/MRI Hip Rt No Contrast Reason for exam: RIGHT HIP PAIN Comparison is made to pelvic MRI scan from 05/25/17. FINDINGS: Note that on the coronal and some of the axial sequences the left hipis also included. No fracture or dislocation is identified. There is some mild joint space narrowing and spurring at bilateral hips from mild DJD. No suspicious osseous lesion is demonstrated. Normal marrow signal intensity is seen. There is no evidence of avascular necrosis. The mild DJD at the hips appears stable. Thereis small linear area of increased signal intensity at the anterior superior labrum from a labral tear at the right hip. For the limited portion of the pelvis included on the exam, the uterus and adnexa appear unremarkable along with the urinary bladder. No free fluid is seen. There is severe spurring and disk space narrowing at L5-S1 +/- a small disk bulge at this level. There are also small bulges at L3-4 and L4-5. IMPRESSION: No fracture/dislocation. 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 Small labraltear right hip. Time portable performed: Fluoroscopy time in seconds: Number of Exposures: Contrast Agent in ml: Method of Administration: REPORT SIGNATURE ON FILE Reported By: Jamari Pires MD <Electronically signed by Jamari Pires MD> 07/17/20 1139 Dictation Date/Time: 07/16/20 1251 Transcribed Date/Time: 07/17/20 0552 Medicaid Analyst: JHONNY Name Value Range Interpretation Code Description Data Ekta rce(s) Supporting Document(s) ID Date Data Source [id number] 07/19/2020 03:04:00 PM EDT [facility] Name Value Range Interpretation Code Description Data Ekta rce(s) Supporting Document(s) Calprotectin,Fecal result 181 ug/g 0-120 Very a bnormal (applies to non-numeric units [facility] Concentration Interpretation Follo w-Up <16 - 50 ug/g Normal None >50 -120 ug/g Borderline Re-evaluate in 4-6 weeks >120 ug/g Abnormal Repeat as clinically indicated Performed at: [address] [id number] [employer] Driver: Favio Mcknight MD, Phone: [phone] ID Date Data Source [id number] 07/19/2020 02:54:00 PM EDT [facility] Name Value Range Interpretation Code Description Data Ekta rce(s) Supporting Document(s) Calprotectin,Stool(LCI) result 181 ug/g 0-120 [facility] Concentration Interpretation Follo w-Up <16 - 50 ug/g Normal None >50 -120 ug/g Borderline Re-evaluate in 4-6 weeks >120 ug/g Abnormal Repeat as clinically indicated Performed at: [facility] [address] [id number] [employer] Driver: Favio Mcknight MD, Phone: [phone] ID Date Data Source [id number] 07/18/2020 10:47:00 AM EDT [facility] spital Procedure Performed By: [facility] [address] [place] [address] Director: Asuncion Zuñiga MD No Salmonella, Shigella, Campylobacter sp., E.coli 0157, Aeromonas, or Vibrio detected. Shiga toxin 1 result: Negative Reference value: Negative for the presence of Shiga toxin 1 and Shiga toxin 2. A negative test result does not preclude the possibility of the presence of Shiga toxins in the specimen which may occur if the level of antigen is below the detection limit of the test. Shiga toxin 2 result: Negative Name Value Range Interpretation Code Description Data Ekta rce(s) Supporting Document(s) ID Date Data Source [id number] 07/15/2020 03:43:00 PM EDT [facility] Name Value Range Interpretation Code Description Data Ekta rce(s) Supporting Document(s) H. pylori Fecal Antigen result Negative N ormal (applies to non-numeric results) [facility] Performed By: [facility] [address] [place] [id number] Heel Buffer: Adrianne Huffman MD Test Performed by: [facility] [address] [place] [id number] ID Date Data Source [id number] 07/15/2020 03:43:00 PM T [facility] Name Value Range Interpretation Code Description Data [facility] rce(s) Supporting Document(s) Ova and Parasite result Normal (applies to non- numeric results) [facility] SOURCE: STOOL OVA AND PARASITE, MICROSC OPY, F FINAL No parasites seen. Cryptosporidium, Cyclospora, and microsporidia are not readily detected by this method. Single negative specimen does not rule out parasitic infection. Test Performed by: [address] [address] [employer] Truck Driver: Willi Rendon M.D. Ph.D.; CLIA# [id number] ID Date Data Source [id number] 07/15/2020 03:22:00 PM EDT [facility] Name Value Range Interpretation Code Description Data Ekta rce(s) Supporting Document(s) H. pylori Antigen,Stool res Negative Normal (appli es to non-numeric results) [facility] Performed By: [address] [place] [address] Heel Buffer: Adrianne Huffman MD Test Performed by: [address] [place] [address] ID Date Data Source [id number] 07/15/2020 03:23:00 PM EDT [facility] Name Value Range Interpretation Code Description Data Ekta rce(s) Supporting Document(s) Ova and Parasite result Normal (applies to non- numeric results) [facility] SOURCE: STOOL OVA AND PARASITE, MICROSC OPY, F FINAL No parasites seen. Cryptosporidium, Cyclospora, and microsporidia are not readily detected by this method. Single negative specimen does not rule out parasitic infection. Test Performed by: [place] [address] Team [employer] Driver: Willi Rendon M.D. Ph.D.; CLIA# [id number] ID Date Data Source [id number] 07/15/2020 01:45:00 AM EDT [facility] This specimen was not examined for Yersi anthony. Procedure Performed By: [facility] [address] [place] [address] Director: Asuncion Zuñiga MDNo Salmonella, Shigella, Campylobacter sp., E.coli 0157, Aeromonas, or Vibrio detected.Negative Reference value: Negative for the presence of Shiga toxin 1 and Shiga toxin 2. A negative test result does not preclude the possibility of the presence of Shiga toxins in the specimen which may occur if the level of antigen is below the detection limit of the test.Negative Name Value Range Interpretation Code Description Data Ekta rce(s) Supporting Document(s) ID Date Data Source [id number] 07/11/2020 06:50:00 PM EDT [facility] C.difficile strain 027/[id number] has bee n associated with severe disease outbreaks and poor treatment outcomes in healthcare facilities worldwide. Reference Range: Toxin producing C. difficile and 027/NAP-1Procedure Performed By: [facility] [address] [place] [address] Director: Asuncion Zuñiga MD . Toxigenic C.difficle: Not detected 027-NAP1-BI: Presumptive negative Name Value Range Interpretation Code Description Data Ekta rce(s) Supporting Document(s) ID Date Data Source [id number] 07/11/2020 03:51:00 PM EDT [facility] C.difficile strain 027/[id number] has been associated with severe disease outbreaks and poor treatment outcomes in healthcare facilities worldwide. Reference Range: Toxin producing C. difficile and 027/NAP-1 Procedure Performed By: [facility] [address] [place] [address] Director: Asuncion Zuñiga MD .Not detectedPresumptive negative Name Value Range Interpretation Code Description Data Ekta rce(s) Supporting Document(s) ID Date Data Source [id number] 07/12/2020 10:31:00 AM EDT [facility] Procedure Performed By: [facility] [address] [place] [address] Director: Asuncion Zuñiga MD QUANTITY: >100,000/mL {ESCHERICHIA COLI} ESCHERICHIA COLISCT Name Value Range Interpretation Code Description Data Ekta rce(s) Supporting Document(s) ID Date Data Source [id number] 07/12/2020 10:31:00 AM EDT [facility] Procedure Performed By: [facility] [address] [place] [address] Director: Asuncion Zuñiga MD QUANTITY: >100,000/mL {ESCHERICHIA COLI} ESCHERICHIA COLISCT Name Value Range Interpretation Code Description Data Ekta rce(s) Supporting Document(s) Amoxicillin/Clavulanic Acid Susc eptible. Indicates for microbiology susceptibilities only. [facility] Ampicillin 8 Susceptible. Indicates for [facility]. [facility] Cefazolin Susceptible. Indicates for microbiol ogy susceptibilities only. [facility] Cefepime Susceptible. Indicates for microbiol ogy susceptibilities only. [facility] ESBL - [facility] Ceftriaxone Susceptible. Indicates for [facility] suscept[facility] only. [facility] Ciprofloxacin Susceptible. Ind icates for microbiology susceptibilities only. [facility] Ertapenem Susceptible. Indicates for microbiol ogy susceptibilities only. [facility] Gentamicin Susceptible. Indicates for microbiol ogy susceptibilities only. [facility] Imipenem Susceptible. Indicates for microbiol ogy susceptibilities only. [facility] Meropenem Susceptible. Indicates for microbiol ogy susceptibilities only. [facility] Levofloxacin Susceptible. Indicates for m icrobiology susceptibilities only. [facility] Nitrofurantoin Susceptible. Ind icates for microbiology susceptibilities only. [facility] Pipercillin/Tazobactam Susceptib le. Indicates for microbiology susceptibilities only. [facility] Trimeth/Sulfamethoxazole Suscept ible. Indicates for microbiology susceptibilities only. [facility] ID Date Data Source [id number] 07/12/2020 09:25:00 AM EDT [facility] Name Value Range Interpretation Code Description Data Ekta rce(s) Supporting Document(s) Urine Culture [facility] ospital ID Date Data Source [id number] 07/12/2020 09:25:00 AM EDT [facility] Name Value Range Interpretation Code Description Data Ekta rce(s) Supporting Document(s) Amoxicillin/Clavulanic Acid Susc eptible. Indicates for microbiology susceptibilities only. [facility] Ampicillin 8 Susceptible. Indicates for m icrobiology susceptibilities only. [facility] Cefazolin Susceptible. Indicates for microbiol ogy susceptibilities only. [facility] Cefepime Susceptible. Indicates for microbiol ogy susceptibilities only. [facility] Ceftriaxone Susceptible. Indicates for m icrobiology susceptibilities only. [facility] Ciprofloxacin Susceptible. Ind icates for microbiology susceptibilities only. [facility] Ertapenem Susceptible. Indicates for microbiol ogy susceptibilities only. [facility] Gentamicin Susceptible. Indicates for microbiol ogy susceptibilities only. [facility] Imipenem Susceptible. Indicates for microbiol ogy susceptibilities only. [facility] Meropenem Susceptible. Indicates for microbiol ogy susceptibilities only. [facility] Levofloxacin Susceptible. Indicates for m icrobiology susceptibilities only. [facility] Nitrofurantoin Susceptible. Ind icates for microbiology susceptibilities only. [facility] Pipercillin/Tazobactam Susceptib le. Indicates for microbiology susceptibilities only. [facility] Trimeth/Sulfamethoxazole Suscept ible. Indicates for microbiology susceptibilities only. [facility] ID Date Data Source [id number] 07/10/2020 04:21:00 PM EDT [facility] Name Value Range Interpretation Code Description Data Ekta rce(s) Supporting Document(s) Color,Urine Colorl-Dk Y Normal (applies to non-numeric res ults) [facility] Clarity,Urine Clear Normal (applies to non-numeric re sults) [facility] Specific [place],Urine 1.005-1.030 Normal (applies to non- numeric results) [facility] pH,Urine 5.0-8.0 Normal (applies to non-numeric resul ts) [facility] Protein,Urine Negative [facility] mandi Glucose,Urine Negative Normal (applies to non-numeric re sults) [facility] Ketones,Urine Negative Normal (applies to non-numeric re sults) [facility] Blood,Urine Negative [facility] l Bilirubin,Urine Negative Normal (applies to non-numeric results) [facility] Urobilinogen,Urine 0.2-1.0 Normal (applies to non-numer ic results) [facility] Leukocyte Esterase,Urine Negative [facility] Nitrite,Urine Negative Normal (applies to non-numeric re sults) [facility] RBC,Urine None Seen [facility] WBC,Urine None Seen [facility] Casts,Urine None Seen Normal (applies [facility] non-[facility] Squamous Cells,Urine None Seen [facility] Bacteria,Urine None Seen [facility] ital ID Date Data Source [id number] 07/04/2020 09:17:00 AM EDT [facility] Name Value Range Interpretation Code Description Data Ekta rce(s) Supporting Document(s) PT 9.2-11.7 Normal (applies to non-numeric results) [facility] INR Normal (applies to non-numeric results) [facility] The use of INR is restricted to patients on stable oral anticoagulant. Therapeutic Range: 2.0 - 3.0 High Risk Range: 2.5 - 3.5 ID Date Data Source [id number] 07/04/2020 09:17:00 AM EDT [facility] Name Value Range Interpretation Code Description Data Ekta rce(s) Supporting Document(s) PTT 23.8-37.9 Normal (applies to non-numeric results) [facility] ID Date Data Source [id number] 07/04/2020 08:58:00 AM EDT [facility] Name Value Range Interpretation Code Description Data Ekta rce(s) Supporting Document(s) White Blood Count 3.5-10.5 Above high normal [facility] Red Blood Count 3.90-5.00 Normal (applies to non-numeric results) [facility] Hemoglobin 12.0-15.5 Normal (applies to non-numeric resul ts) [facility] Hematocrit 34.9-44.5 Normal (applies to non-numeric resul ts) [facility] Mean Corpuscular Volume 81.2-95.1 Below low normal [facility] Mean Corpuscular Hgb 25.6-32.2 Normal (applies to non-num salome results) [facility] Mean Corpuscular Hgb Conc 32.0-36.0 Normal (applies to no n-numeric results) [facility] Red Cell Distribution Width 11.9-15.5 Normal (appli es to non-numeric results) [facility] Platelet Count 297 x10 3/uL 150-450 Normal (applies to non-numeric results) [facility] Mean Platelet Volume 9.4-12.4 Below low normal [facility] Neutrophils% (Auto) 31.0-71.0 Normal (applies to non-nume yahir results) [facility] Lymphocytes% (Auto) 20.0-55.0 Normal (applies to non-nume yahir results) [facility] Monocytes% (Auto) 4.0-12.0 Normal (applies to non-numeri c results) [facility] Eosinophils% (Auto) 1.0-8.0 Normal (applies to non-nume yahir results) [facility] Basophils% (Auto) 0.0-2.0 Normal (applies to non-numeri c results) [facility] Immature Granulocytes% (Auto) 0.0-2.0 Normal (taiwo lies to non-numeric results) [facility] Neutrophils# (Auto) 1.50-6.20 Above high normal [facility] Lymphocytes# (Auto) 1.20-4.00 Normal (applies to non-nume yahir results) [facility] Monocytes# (Auto) 0.00-0.90 Normal (applies to non-numeri c results) [facility] Eosinophils# (Auto) 0.00-0.50 Normal (applies to non-nume yahir results) [facility] Basophils# (Auto) 0.00-0.20 Normal (applies to non-numeri c results) [facility] Immature Granulocytes# (Auto) 0.00-7.00 No rmal (applies to non-numeric results) [facility] ID Date Data Source [id number] 07/04/2020 09:25:00 AM EDT [facility] Name Value Range Interpretation Code Description Data Ekta rce(s) Supporting Document(s) Sodium 137 mmol/L 136-145 Normal (applies to non-numeric resul ts) [facility] Potassium 3.5-5.1 Normal (applies to non-numeric resul ts) [facility] Chloride 102 mmol/L 98-107 Normal (applies to non-numeric resul ts) [facility] Carbon Dioxide CO2 21-32 Normal (applies to non-numer ic results) [facility] Anion Gap 5.0-16.0 Normal (applies to non-numeric resul ts) [facility] BUN 16 mg/dL 7-18 Normal (applies to non-numeric results) [facility] Creatinine,Serum 0.7-1.2 Below low normal [facility] GFR >60 Normal (applies to non-numeric results) [facility] Glucose Level 109 mg/dL 60-99 Above high normal [facility] Reference range is only applicable when patient is fasting Note the following drug interference: Sulfasalazine Sulfapyridine Can see falsely depressed Can see falsely elevated result with up to 17% results with up to 11% decrease in measurement increase in measurement Recommend patients be collected for this test prior to administration of either drug. Calcium 8.5-10.1 Normal (applies to non-numeric resul ts) [facility] Bilirubin,Total 0.1-1.9 Normal (applies to non-numeric results) [facility] SGOT(AST) 28 U/L 15-37 Normal (applies to non-numeric resul ts) [facility] Note the following drug interference: Sulfasalazine Sulfapyridine Can see falsely depressed Can see falsely elevated result with up to 10% results with up to 10% decrease in measurement increase in measurement Recommend patients be collected for this test prior to administration of either drug. SGPT(ALT) 49 U/L 12-78 Normal (applies to non-numeric resul ts) [facility] Note the following drug interference: Sulfasalazine Sulfapyridine Can see falsely depressed Can see falsely elevated result with up to 29% results with up to 10% decrease in measurement increase in measurement Recommend patients be collected for this test prior to administration of either drug. Alkaline Phosphatase 124 U/L 38-126 Normal (applies to non-num salome results) [facility] can increase Alkaline Phosp le vels up to 2 times the normal adult value. Normal values for children and adolescents are 2 to 3 times the normal adult value. Total Protein 6.0-8.2 Normal (applies to non-numeric re sults) [facility] Albumin Level 3.4-5.0 Normal (applies to non-numeric re sults) [facility] ID Date Data Source [id number] 07/04/2020 09:25:00 AM EDT [facility] Name Value Range Interpretation Code Description Data Ekta rce(s) Supporting Document(s) Troponin I 0.000-0.056 Normal (applies to non-numeric resu lts) [facility] ID Date Data Source [id number] 07/04/2020 09:25:00 AM EDT [facility] Name Value Range Interpretation Code Description Data Ekta rce(s) Supporting Document(s) Amylase 22 U/L 25-[address] [facility] ID Date Data Source [id number] 07/04/2020 09:25:00 AM EDT [facility] Name Value Range Interpretation Code Description Data Ekta rce(s) Supporting Document(s) Lipase 127 U/L 73-393 Normal (applies to non-numeric resul ts) [facility] ID Date Data Source [id number] 07/05/2020 05:31:00 AM EDT [facility] Imaging Services Department Imaging Report [address], [place] [address] %(RAD)RES..mtdd.print.filter("line") Name: ANGELIA ARTHUR : 1965 Age/Sex: 54F Ordering Provider: Maggie Bates MD Med Rec #: [id number] Reg Status: [facility] Room #: Date of Service: 07/04/20 Report Number: [id number] cc:Valerie Tarango MD Send Report To: [id number] US/US Gall Bladder Study Reason for exam: ruq abd pain FINDINGS: There is fatty change identified within the liver. The right kidney appears normal. Gallbladder is within normal limits. No signs of any acute pathology identified. Common bile duct measures 3 mm. IMPRESSION: Some fatty change in the liver. No other significant findings. Time portable performed: Fluoroscopy time in seconds: Number of Exposures: Contrast Agent in ml: Method of Administration: REPORT SIGNATURE ON FILE Reported By: Win Restrepo MD <Electronically signed by Patrick Restrepo MD> 07/05/20 1048 Dictation Date/Time: 07/04/20 1027 Transcribed Date/Time: 07/05/20 0531 Medicaid Analyst: JHONNY Name Value Range Interpretation Code Description Data Ekta rce(s) Supporting Document(s) ID Date Data Source [id number] 07/04/2020 04:33:00 PM EDT [facility] Imaging Services Department Imaging Report [address], [place] [address] %(RAD)RES..mtdd.print.filter("line") Name: ANGELIA ARTHUR : 1965 Age/Sex: 54F Ordering Provider: Maggie Bates MD Med Rec #: [id number] Reg Status: [facility] ER Room #: Date of Service: 07/04/20 Report Number: [id number] cc:Valerie Tarango MD Send Report To: [id number] XRP/XR Chest 2 View [Pa & Lat] Reason for exam: upper abd pain Comparison is made to 05/15/2020 FINDINGS: Lung mills are clear. No focal infiltrate or consolidation is identified. Cardiac silhouette appears unremarkable. A port cath is present with its tip in the SVC unchanged in position as compared to the prior study . Degenerative changes are present in the spine. IMPRESSION: No acute pulmonary findings and no significant change. REPORT DICTATED BY WIN DESIR, REVIEWED AND SIGNED BY Time portable performed: Fluoroscopy time in seconds: Number of Exposures: Contrast Agent in ml: Method of Administration: REPORT SIGNATURE ON FILE Reported By: Jamari Pires MD <Electronically signed by Jamari Pires MD> 07/05/20 1051 Dictation Date/Time: 07/04/20 0937 Transcribed Date/Time: 07/04/20 1633 Medicaid Analyst: CAMPOS Name Value Range Interpretation Code Description Data Ekta rce(s) Supporting Document(s) ID Date Data Source [id number] 07/04/2020 04:37:00 PM EDT [facility] Imaging Services Department Imaging Report [address], [place] [address] %(RAD)RES..mtdd.print.filter("line") Name: ANGELIA ARTHUR : 1965 Age/Sex: 54F Ordering Provider: Maggie Bates MD Med Rec #: [id number] Reg Status: [facility] Room #: Date of Service: 07/04/20 Report Number: [id number] cc:Valerie Tarango MD Send Report To: [id number] CT/CT Abdomen & Pelvis No Contras Reason for exam: ruq abd pain FINDINGS: Lung based show no distinct focal infiltrate or consolidation. Mild atelectasis is identified at the right lung base. Heart is unremarkable. Liver shows fatty infiltration. Gallbladder is unremarkable without evidence ofcholelithiasis, pericholecystic fluid or gallbladder wall thickening. Spleen appears unremarkable. Pancreas, adrenal glands and kidneys appear unremarkable. No hydronephrosis or nephrolithiasis is identified. The appendix is not discretely visualized. No secondary signs of appendicitis are identified. No free fluid is identified in the pelvis. Urinary bladder appears unremarkable. Osseous structures demonstrate postsurgical changes in the lumbar spine. Degenerative changes are present. IMPRESSION: Fatty liver. No acute findings. REPORT DICTATED BY WIN DESIR, REVIEWED AND SIGNED BY DR. PIRES While performing the above CT exam, the following dose reduction techniques wereused: *Automated exposure control *Adjustment of the mA and/or kV according to patient size *Use of iterative reconstruction technique CT Dose in mGy: Contrast Agent: Amount in ml: Method of Administration: REPORT SIGNATURE ON FILE Reported By: Jamari Pires MD <Electronically signed by Jamari Pires MD> 07/05/20 1051 Dictation Date/Time: 07/04/20 0937 Transcribed Date/Time: 07/04/20 1637 Medicaid Analyst: CAMPOS Name Value Range Interpretation Code Description Data Ekta rce(s) Supporting Document(s) ID Date Data Source [id number] 06/30/2020 11:38:00 PM EDT [facility] Name Value Range Interpretation Code Description Data Ekta rce(s) Supporting Document(s) Respiratory specimen severe acute respir atory syndrome coronavirus 2 (SARS-CoV-2) RNA [facility] ital This lab was ordered by [facility] layne and reported by [facility]. Procedure Social History No Information Vital Signs ID Date Data Source UNK Name Value Range Interpretation Code Description Data Source(s) Body temperature 97.3 [degF] 97.3 [degF] [facility] Body height 63.75 [in_i] 63.75 [in_i] [facility] ([facility] ) 5'3.75" Body weight 253.00 [lb_av] 253.00 [lb_av] [facility] T ([facility]) Body mass index (BMI) [Ratio] 43.8 kg/m2 43.8 k g/m2 [facility] ([facility]) ID Date Data Source [id number] 08/25/2021 12:44:00 PM EST [facility] Name Value Range Interpretation Code Description Data Source(s) Weight (Calculated Kilograms) 106.96 106.96 [facility] Height (Calculated Centimeters) 160.02 160. 02 [facility] Body Mass Index (BMI) 41.8 41.8 [facility] Weight (Calculated Kilograms) 106.96 106.96 [facility] Height (Calculated Centimeters) 160.02 160. 02 [facility] Body Mass Index (BMI) 41.8 41.8 [facility] Weight (Calculated Kilograms) 106.96 106.96 [facility] Height (Calculated Centimeters) 160.02 160. 02 [facility] Body Mass Index (BMI) 41.8 41.8 [facility] ID Date Data Source [id number] 07/31/2021 05:32:00 PM EDT [facility] Name Value Range Interpretation Code Description Data Source(s) Weight (Calculated Kilograms) 106.96 106.96 [facility] Height (Calculated Centimeters) 160.02 160. 02 [facility] Body Mass Index (BMI) 41.8 41.8 [facility] ID Date Data Source [id number] 08/01/2021 12:05:00 AM EDT [facility] spital Name Value Range Interpretation Code Description Data Source(s) Weight (Calculated Kilograms) 93.58 93.58 [facility] Height (Calculated Centimeters) 160.02 160. 02 [facility] Body Mass Index (BMI) 36.[address] ID Date Data Source [id number] 08/05/2021 01:22:00 PM EDT [facility] Name Value Range Interpretation Code Description Data Source(s) Weight (Calculated Kilograms) 106.96 106.96 [facility] Height (Calculated Centimeters) 160.02 160. 02 [facility] Body Mass Index (BMI) 41.8 41.8 [facility] ID Date Data Source [id number] 07/17/2021 12:06:00 AM EDT [facility] Name Value Range Interpretation Code Description Data Source(s) Weight (Calculated Kilograms) 93.58 93.58 [facility] Height (Calculated Centimeters) 160.02 160. 02 [facility] Body Mass Index (BMI) 36.5 365 [facility] ID Date Data Source [id number] 07/14/2021 02:29:00 PM EDT [facility] spital Name Value Range Interpretation Code Description Data Source(s) Weight Measurement Method 8 8 [facility] Weight (Calculated Kilograms) 93.58 93.58 [facility] Weight 4160 4160 [facility] pital Temperature Source 7 7 [facility] Temperature 97.9 97.9 [facility] spital Respiratory Effort 1 1 [facility] Respiratory Rate 20 20 [facility] Pulse Assessment Method 4 4 G [facility] Pulse Rate 91 91 [facility] pital Height (Calculated Centimeters) 160.02 160. 02 [facility] 129/73 129/73 [facility] Body Mass Index (BMI) 36.[address] Weight Measurement Method 8 8 [facility] Weight (Calculated Kilograms) 93.58 93.58 [facility] Weight 4160 4160 [facility] pital Temperature Source 7 7 [facility] Temperature 97.9 97.9 [facility] spital Respiratory Effort 1 1 [facility] Respiratory Rate 20 20 [facility] Pulse Assessment Method 4 4 G [facility] Pulse Rate 91 91 [facility] pital Height (Calculated Centimeters) 160.02 160. 02 [facility] Height 63 63 [facility] Blood Pressure 129/73 129/73 [facility] Body Mass Index (BMI) 36.[address] Weight (Calculated Kilograms) 93.58 93.58 [facility] Height (Calculated Centimeters) 160.02 160. 02 [facility] Body Mass Index (BMI) 36.[address] Weight (Calculated Kilograms) 93.58 93.58 [facility] Height (Calculated Centimeters) 160.02 160. 02 [facility] Body Mass Index (BMI) [address] ID Date Data Source [id number] 07/03/2021 10:16:00 PM EDT [facility] Name Value Range Interpretation Code Description Data Source(s) Weight (Calculated Kilograms) 106.96 106.96 [facility] Height (Calculated Centimeters) 160.02 160. 02 [facility] Body Mass Index (BMI) 41.8 41.8 [facility] Hospital ID Date Data Source [id number] 07/04/2021 12:08:[address] [facility] Name Value Range Interpretation Code Description Data Source(s) Weight (Calculated Kilograms) 93.58 93.58 [facility] Height (Calculated Centimeters) 160.02 160. 02 [facility] Body Mass Index (BMI) 36.5 36.5 [facility] ID Date Data Source [id number] 08/11/2021 04:05:00 PM EDT [facility] Name Value Range Interpretation Code Description Data Source(s) Weight (Calculated Kilograms) 106.96 106.96 [facility] Height (Calculated Centimeters) 160.02 160. 02 [facility] Body Mass Index (BMI) 41.8 41.8 [facility] ID Date Data Source [id number] 07/28/2021 08:55:00 AM EDT [facility] Name Value Range Interpretation Code Description Data Source(s) Weight (Calculated Kilograms) 106.96 106.96 [facility] Height (Calculated Centimeters) 160.02 160. 02 [facility] Body Mass Index (BMI) 41.8 41.8 [facility] ID Date Data Source [id number] 06/27/2021 06:01:00 PM EDT [facility] Name Value Range Interpretation Code Description Data Source(s) Weight (Calculated Kilograms) 106.96 106.96 [facility] Height (Calculated Centimeters) 160.02 160. 02 [facility] Body Mass Index (BMI) 41.8 41.8 [facility] Weight (Calculated Kilograms) 106.96 106.96 [facility] Height (Calculated Centimeters) 160.02 160. 02 [facility] Body Mass Index (BMI) 41.8 41.8 [facility] Weight (Calculated Kilograms) 106.96 106.96 [facility] Height (Calculated Centimeters) 160.02 160. 02 [facility] Body Mass Index (BMI) 41.8 41.8 [facility] ID Date Data Source [id number] 07/10/2021 01:19:00 PM EDT [facility] Name Value Range Interpretation Code Description Data Source(s) Weight (Calculated Kilograms) 106.96 106.96 [facility] Temperature Source 7 7 [facility] Temperature 96.9 96.9 [facility] Respiratory Effort 2 2 [facility] Respiratory Rate [address] [facility] Pulse Assessment Method 4 4 [facility] Pulse Rate 85 85 [facility] Height (Calculated Centimeters) 160.02 160. 02 [facility] Blood Pressure 137/69 137/69 [facility] Body Mass Index (BMI) 41.8 41.8 [facility] Weight (Calculated Kilograms) 106.96 106.96 [facility] Temperature Source 7 7 [facility] Temperature 96.9 96.9 [facility] Respiratory Effort 2 2 [facility] Respiratory Rate [address] [facility] Pulse Assessment Method 4 4 [facility] Pulse Rate 85 85 [facility] Height (Calculated Centimeters) 160.02 160. 02 [facility] Blood Pressure 137/69 137/69 [facility] Body Mass Index (BMI) 41.8 41.8 [facility] Weight (Calculated Kilograms) 106.96 106.96 [facility] Height (Calculated Centimeters) 160.02 160. 02 [facility] Body Mass Index (BMI) 41.8 41.8 [facility] Weight (Calculated Kilograms) 106.96 106.96 [facility] Height (Calculated Centimeters) 160.02 160. 02 [facility] Body Mass Index (BMI) 41.8 41.8 [facility] ID Date Data Source [id number] 06/20/2021 01:07:00 PM EDT [facility] Name Value Range Interpretation Code Description Data Source(s) Weight (Calculated Kilograms) 106.96 106.96 [facility] Weight 4096 4096 [facility] Temperature 97.8 97.8 [facility] Respiratory Rate [address] [facility] Pulse Rate 87 87 [facility] Height (Calculated Centimeters) 160.02 160. 02 [facility] Height 63 63 [facility] Blood Pressure 125/57 125/57 [facility] Body Mass Index (BMI) 41.8 41.8 [facility] Weight (Calculated Kilograms) 106.96 106.96 [facility] Weight 4096 4096 [facility] Temperature 97.8 97.8 [facility] Respiratory Rate [address] [facility] Pulse Rate 87 87 [facility] Height (Calculated Centimeters) 160.02 160. 02 [facility] Height 63 63 [facility] Blood Pressure 125/57 125/57 [facility] Body Mass Index (BMI) 41.8 41.8 [facility] Weight (Calculated Kilograms) 106.96 106.96 [facility] Weight 4096 4096 [facility] Height (Calculated Centimeters) 160.02 160. 02 [facility] Height 63 63 [facility] Body Mass Index (BMI) 41.8 41.8 [facility] ID Date Data Source [id number] 06/12/2021 07:43:[address] [facility] Name Value Range Interpretation Code Description Data Source(s) Weight (Calculated Kilograms) 93.58 93.58 [facility] Height (Calculated Centimeters) 160.02 160. 02 [facility] Body Mass Index (BMI) 36.5 36.5 [facility] ID Date Data Source [id number] 07/07/2021 01:12:00 PM EDT [facility] Name Value Range Interpretation Code Description Data Source(s) Weight (Calculated Kilograms) 106.96 106.96 [facility] Height (Calculated Centimeters) 160.02 160. 02 [facility] Body Mass Index (BMI) 41.8 41.8 [facility] ID Date Data Source [id number] 06/05/2021 04:38:00 PM T [facility] Name Value Range Interpretation Code Description Data Source(s) Weight (Calculated Kilograms) 106.96 106.96 [facility] Height (Calculated Centimeters) 160.02 160. 02 [facility] Body Mass Index (BMI) 41.8 41.8 [facility] ID Date Data Source [id number] 06/06/2021 12:04:00 AM T [facility] spital Name Value Range Interpretation Code Description Data Source(s) Weight (Calculated Kilograms) 93.58 93.58 [facility] Height (Calculated Centimeters) 160.02 160. 02 [facility] Body Mass Index (BMI) 36.5 36.5 [facility] ID Date Data Source [id number] 08/19/2021 12:23:00 AM [facility] Name Value Range Interpretation Code Description Data Source(s) Weight (Calculated Kilograms) 106.96 106.96 [facility] Height (Calculated Centimeters) 160.02 160. 02 [facility] Body Mass Index (BMI) 41.8 41.8 [facility] ID Date Data Source [id number] 05/29/2021 11:35:00 AM [facility] spital Name Value Range Interpretation Code Description Data Source(s) Weight (Calculated Kilograms) 93.58 93.58 [facility] Height (Calculated Centimeters) 160.02 160. 02 [facility] Body Mass Index (BMI) 36.5 365 [facility] ID Date Data Source [id number] 06/17/2021 01:47:00 PM [facility] Name Value Range Interpretation Code Description Data Source(s) Weight (Calculated Kilograms) 106.96 106.96 [facility] Height (Calculated Centimeters) 160.02 160. 02 [facility] Body Mass Index (BMI) 41.8 41.8 [facility] ID Date Data Source [id number] 05/06/2021 04:35:00 PM [facility] Name Value Range Interpretation Code Description Data Source(s) Weight (Calculated Kilograms) 106.96 106.96 [facility] Height (Calculated Centimeters) 160.02 160. 02 [facility] Body Mass Index (BMI) 41.8 41.8 [facility] ID Date Data Source [id number] 05/06/2021 05:11:00 PM [facility] spital Name Value Range Interpretation Code Description Data Source(s) Weight (Calculated Kilograms) 93.58 93.58 [facility] Height (Calculated Centimeters) 160.02 160. 02 [facility] Body Mass Index (BMI) 36.5 36.5 [facility] ID Date Data Source [id number] 05/07/2021 09:50:00 AM [facility] Name Value Range Interpretation Code Description Data Source(s) Weight (Calculated Kilograms) 106.96 106.96 [facility] Height (Calculated Centimeters) 160.02 160. 02 [facility] Body Mass Index (BMI) 41.8 41.8 [facility] ID Date Data Source [id number] 05/07/2021 10:06:00 AM [facility] Name Value Range Interpretation Code Description Data Source(s) Weight (Calculated Kilograms) 93.58 93.58 [facility] Height (Calculated Centimeters) 160.02 160. 02 [facility] Body Mass Index (BMI) 36.5 36.5 [facility] ID Date Data Source [id number] 04/28/2021 05:40:00 AM [facility] Name Value Range Interpretation Code Description Data Source(s) Weight (Calculated Kilograms) 106.96 106.96 [facility] Height (Calculated Centimeters) 160.02 160. 02 [facility] Body Mass Index (BMI) 41.8 41.8 [facility] ID Date Data Source [id number] 04/17/2021 11:02:00 AM [facility] Name Value Range Interpretation Code Description Data Source(s) Weight (Calculated Kilograms) 106.96 106.96 [facility] Height (Calculated Centimeters) 160.02 160. 02 [facility] Body Mass Index (BMI) 41.8 41.8 [facility] ID Date Data Source [id number] 04/17/2021 01:57:00 PM [facility] Name Value Range Interpretation Code Description Data Source(s) Weight (Calculated Kilograms) 106.96 106.96 [facility] Height (Calculated Centimeters) 160.02 160. 02 [facility] Body Mass Index (BMI) 41.8 41.8 [facility] Hospital ID Date Data Source [id number] 04/22/2021 12:25:00 PM EDT [facility] Name Value Range Interpretation Code Description Data Source(s) Weight (Calculated Kilograms) 106.96 106.96 [facility] Height (Calculated Centimeters) 160.02 160. 02 [facility] Body Mass Index (BMI) 41.8 41.8 [facility] Hospital ID Date Data Source [id number] 04/22/2021 12:46:[address] [facility] Name Value Range Interpretation Code Description Data Source(s) Weight (Calculated Kilograms) 93.58 93.58 [facility] Height (Calculated Centimeters) 160.02 160. 02 [facility] Body Mass Index (BMI) 36.5 36.5 [facility] ID Date Data Source [id number] 04/17/2021 08:17:00 AM EDT [facility] Name Value Range Interpretation Code Description Data Source(s) Weight (Calculated Kilograms) 106.96 106.96 [facility] Height (Calculated Centimeters) 160.02 160. 02 [facility] Body Mass Index (BMI) 41.8 41.8 [facility] ID Date Data Source [id number] 04/17/2021 02:02:00 PM [facility] Name Value Range Interpretation Code Description Data Source(s) Weight (Calculated Kilograms) 106.96 106.96 [facility] Height (Calculated Centimeters) 160.02 160. 02 [facility] Body Mass Index (BMI) 41.8 41.8 [facility] Weight (Calculated Kilograms) 106.96 106.96 [facility] Height (Calculated Centimeters) 160.02 160. 02 [facility] Body Mass Index (BMI) 41.8 41.8 [facility] Weight (Calculated Kilograms) 106.96 106.96 [facility] Height (Calculated Centimeters) 160.02 160. 02 [facility] Body Mass Index (BMI) 41.8 41.8 [facility] ID Date Data Source [id number] 04/21/2021 08:03:00 AM EDT [facility] Name Value Range Interpretation Code Description Data Source(s) Weight (Calculated Kilograms) 106.96 106.96 [facility] Height (Calculated Centimeters) 160.02 160. 02 [facility] Body Mass Index (BMI) 41.8 41.8 [facility] Hospital ID Date Data Source [id number] 03/28/2021 05:35:00 PM EDT [facility] Name Value Range Interpretation Code Description Data Source(s) Weight (Calculated Kilograms) 106.96 106.96 [facility] Height (Calculated Centimeters) 160.02 160. 02 [facility] Body Mass Index (BMI) 41.8 41.8 [facility] ID Date Data Source [id number] 03/29/2021 12:03:00 AM EDT [facility] spital Name Value Range Interpretation Code Description Data Source(s) Weight (Calculated Kilograms) 93.58 93.58 [facility] Height (Calculated Centimeters) 160.02 160. 02 [facility] Body Mass Index (BMI) 36.[address] ID Date Data Source [id number] 03/26/2021 09:28:00 AM EDT [facility] Name Value Range Interpretation Code Description Data Source(s) Weight (Calculated Kilograms) 106.96 106.96 [facility] Height (Calculated Centimeters) 160.02 160. 02 [facility] Body Mass Index (BMI) 41.8 41.8 [facility] ID Date Data Source [id number] 03/27/2021 09:39:00 AM EDT [facility] spital Name Value Range Interpretation Code Description Data Source(s) Weight (Calculated Kilograms) 93.58 93.58 [facility] Height (Calculated Centimeters) 160.02 160. 02 [facility] Body Mass Index (BMI) 36.[address] Weight (Calculated Kilograms) 93.58 93.58 [facility] Height (Calculated Centimeters) 160.02 160. 02 [facility] Body Mass Index (BMI) 36.5 36.5 [facility] ID Date Data Source [id number] 03/17/2021 07:09:00 AM [facility] Hospital Name Value Range Interpretation Code Description Data Source(s) Weight (Calculated Kilograms) 106.96 106.96 [facility] Height (Calculated Centimeters) 160.02 160. 02 [facility] Body Mass Index (BMI) 41.8 41.8 [facility] ID Date Data Source [id number] 03/12/2021 02:02:00 PM [facility] Name Value Range Interpretation Code Description Data Source(s) Weight (Calculated Kilograms) 106.96 106.96 [facility] Height (Calculated Centimeters) 160.02 160. 02 [facility] Body Mass Index (BMI) 41.8 41.8 [facility] Weight (Calculated Kilograms) 106.96 106.96 [facility] Height (Calculated Centimeters) 160.02 160. 02 [facility] Body Mass Index (BMI) 41.8 41.8 [facility] Weight (Calculated Kilograms) 106.96 106.96 [facility] Height (Calculated Centimeters) 160.02 160. 02 [facility] Body Mass Index (BMI) 41.8 41.8 [facility] ID Date Data Source [id number] 03/05/2021 08:51:00 AM [facility] Name Value Range Interpretation Code Description Data Source(s) Weight (Calculated Kilograms) 106.96 106.96 [facility] Height (Calculated Centimeters) 160.02 160. 02 [facility] Body Mass Index (BMI) 41.8 41.8 [facility] ID Date Data Source [id number] 03/05/2021 11:28:00 AM [facility] Name Value Range Interpretation Code Description Data Source(s) Weight (Calculated Kilograms) 93.58 93.58 [facility] Height (Calculated Centimeters) 160.02 160. 02 [facility] Body Mass Index (BMI) 36.5 365 [facility] Weight (Calculated Kilograms) 93.58 93.58 [facility] Height (Calculated Centimeters) 160.02 160. 02 [facility] Body Mass Index (BMI) 36.5 36.5 [facility] ID Date Data Source [id number] 02/26/2021 08:05:00 AM EDT [facility] Name Value Range Interpretation Code Description Data Source(s) Weight (Calculated Kilograms) 106.96 106.96 [facility] Height (Calculated Centimeters) 160.02 160. 02 [facility] Body Mass Index (BMI) 41.8 41.8 [facility] ID Date Data Source [id number] 03/24/2021 09:41:00 AM EDT [facility] Name Value Range Interpretation Code Description Data Source(s) Weight (Calculated Kilograms) 106.96 106.96 [facility] Height (Calculated Centimeters) 160.02 160. 02 [facility] Body Mass Index (BMI) 41.8 41.8 [facility] ID Date Data Source [id number] 02/12/2021 11:36:00 AM EDT [facility] spital Name Value Range Interpretation Code Description Data Source(s) Weight (Calculated Kilograms) 93.58 93.58 [facility] Height (Calculated Centimeters) 160.02 160. 02 [facility] Body Mass Index (BMI) 36.5 365 [facility] Weight (Calculated Kilograms) 93.58 93.58 [facility] Height (Calculated Centimeters) 160.02 160. 02 [facility] Body Mass Index (BMI) 36.5 36.5 [facility] ID Date Data Source [id number] 02/11/2021 08:51:00 AM EDT [facility] Name Value Range Interpretation Code Description Data Source(s) Weight (Calculated Kilograms) 106.96 106.96 [facility] Height (Calculated Centimeters) 160.02 160. 02 [facility] Body Mass Index (BMI) 41.8 41.8 [facility] ID Date Data Source [id number] 03/07/2021 03:37:00 AM EDT [facility] spital Name Value Range Interpretation Code Description Data Source(s) Weight (Calculated Kilograms) 93.58 93.58 [facility] Height (Calculated Centimeters) 160.02 160. 02 [facility] Body Mass Index (BMI) 36.5 36.5 [facility] ID Date Data Source [id number] 02/06/2021 01:12:00 PM EDT [facility] Name Value Range Interpretation Code Description Data Source(s) Weight (Calculated Kilograms) 106.96 106.96 [facility] Temperature 97.3 97.3 [facility] Respiratory Rate [address] [facility] Pulse Rate 76 76 [facility] Height (Calculated Centimeters) 160.02 160. 02 [facility] Blood Pressure 138/76 138/76 [facility] Body Mass Index (BMI) 41.8 41.8 [facility] Weight (Calculated Kilograms) 106.96 106.96 [facility] Height (Calculated Centimeters) 160.02 160. 02 [facility] Body Mass Index (BMI) 41.8 41.8 [facility] Weight (Calculated Kilograms) 106.96 106.96 [facility] Height (Calculated Centimeters) 160.02 160. 02 [facility] Body Mass Index (BMI) 41.8 41.8 [facility] ID Date Data Source [id number] 02/10/2021 10:26:00 AM [facility] Value Range Interpretation Code Description Data Source(s) Weight (Calculated Kilograms) 93.58 93.58 [facility] Height (Calculated Centimeters) 160.02 160. 02 [facility] Body Mass Index (BMI) 36.5 36.5 [facility] Weight (Calculated Kilograms) 93.58 93.58 [facility] Height (Calculated Centimeters) 160.02 160. 02 [facility] Body Mass Index (BMI) 36.5 365 [facility] Weight (Calculated Kilograms) 93.58 93.58 [facility] Height (Calculated Centimeters) 160.02 160. 02 [facility] Body Mass Index (BMI) 36.5 36.5 [facility] ID Date Data Source [id number] 01/25/2021 12:01:00 AM EDT [facility] Name Value Range Interpretation Code Description Data Source(s) Weight (Calculated Kilograms) 93.58 93.58 [facility] Height (Calculated Centimeters) 160.02 160. 02 [facility] Body Mass Index (BMI) 36.[address] ID Date Data Source [id number] 01/21/2021 05:19:00 PM EDT [facility] spital Name Value Range Interpretation Code Description Data Source(s) Weight Measurement Method 8 8 [facility] Weight (Calculated Kilograms) 93.58 93.58 [facility] Weight 3920 3920 [facility] pital Temperature Source 7 7 [facility] Temperature 97.8 97.8 [facility] spital Respiratory Rate 16 16 [facility] Pulse Rate 96 96 [facility] pital Height (Calculated Centimeters) 160.02 160. 02 [facility] Height 63 63 [facility] pital Blood Pressure 144/78 144/78 [facility] Body Mass Index (BMI) 36.[address] Weight Measurement Method 8 8 [facility] Weight (Calculated Kilograms) 93.58 93.58 [facility] Weight 3920 3920 [facility] pital Temperature Source 7 7 [facility] Temperature 97.8 97.8 [facility] spital Respiratory Rate 16 16 [facility] Pulse Rate 96 96 [facility] pital Height (Calculated Centimeters) 160.02 160. 02 [facility] Height 63 63 [facility] Blood Pressure 144/78 144/78 [facility] Body Mass Index (BMI) 36.[address] Weight (Calculated Kilograms) 93.58 93.58 [facility] Height (Calculated Centimeters) 160.02 160. 02 [facility] Body Mass Index (BMI) 36.[address] Weight (Calculated Kilograms) 93.58 93.58 [facility] Height (Calculated Centimeters) 160.02 160. 02 [facility] Body Mass Index (BMI) 36.5 36.5 [facility] ID Date Data Source [id number] 01/20/2021 05:20:00 PM EDT [facility] Name Value Range Interpretation Code Description Data Source(s) Weight (Calculated Kilograms) 106.96 106.96 [facility] Height (Calculated Centimeters) 160.02 160. 02 [facility] Body Mass Index (BMI) 41.8 41.8 [facility] ID Date Data Source [id number] 01/21/2021 12:03:00 AM EDT [facility] spital Name Value Range Interpretation Code Description Data Source(s) Weight (Calculated Kilograms) 93.58 93.58 [facility] Height (Calculated Centimeters) 160.02 160. 02 [facility] Body Mass Index (BMI) 36.[address] ID Date Data Source [id number] 02/10/2021 04:52:00 PM EDT [facility] spital Name Value Range Interpretation Code Description Data Source(s) Weight (Calculated Kilograms) 93.58 93.58 [facility] Height (Calculated Centimeters) 160.02 160. 02 [facility] Body Mass Index (BMI) 36.[address] [place] [address] Weight (Calculated Kilograms) 93.58 93.58 [facility] Height (Calculated Centimeters) 160.02 160. 02 [facility] Body Mass Index (BMI) 36.[address] [place] [address] Weight (Calculated Kilograms) 93.58 93.58 [facility] Height (Calculated Centimeters) 160.02 160. 02 [facility] Body Mass Index (BMI) 36.[address] [place] [address] Weight (Calculated Kilograms) 93.58 93.58 [facility] Height (Calculated Centimeters) 160.02 160. 02 [facility] Body Mass Index (BMI) 36.[address] Weight (Calculated Kilograms) 93.58 93.58 [facility] Height (Calculated Centimeters) 160.02 160. 02 [facility] Body Mass Index (BMI) 36.[address] [place] [address] Weight (Calculated Kilograms) 93.58 93.58 [facility] Height (Calculated Centimeters) 160.02 160. 02 [facility] Body Mass Index (BMI) 36.5 36.5 [facility] ID Date Data Source [id number] 01/23/2021 03:19:00 PM EDT [facility] Hospital Name Value Range Interpretation Code Description Data Source(s) Weight (Calculated Kilograms) 106.96 106.96 [facility] Height (Calculated Centimeters) 160.02 160. 02 [facility] Body Mass Index (BMI) 41.8 41.8 [facility] Weight (Calculated Kilograms) 106.96 106.96 [facility] Height (Calculated Centimeters) 160.02 160. 02 [facility] Body Mass Index (BMI) 41.8 41.8 [facility] ID Date Data Source [id number] 01/16/2021 06:47:00 PM EDT [facility] Name Value Range Interpretation Code Description Data Source(s) Weight (Calculated Kilograms) 106.96 106.96 [facility] Height (Calculated Centimeters) 160.02 160. 02 [facility] Body Mass Index (BMI) 41.8 41.8 [facility] ID Date Data Source [id number] 01/22/2021 07:11:00 AM EDT [facility] Name Value Range Interpretation Code Description Data Source(s) Weight (Calculated Kilograms) 106.96 106.96 [facility] Height (Calculated Centimeters) 160.02 160. 02 [facility] Body Mass Index (BMI) 41.8 41.8 [facility] Weight (Calculated Kilograms) 106.96 106.96 [facility] Height (Calculated Centimeters) 160.02 160. 02 [facility] Body Mass Index (BMI) 41.8 41.8 [facility] ID Date Data Source [id number] 01/14/2021 12:03:[address] [facility] Name Value Range Interpretation Code Description Data Source(s) Weight (Calculated Kilograms) 93.58 93.58 [facility] Height (Calculated Centimeters) 160.02 160. 02 [facility] Body Mass Index (BMI) 36.5 36.5 [facility] ID Date Data Source [id number] 01/14/2021 12:22:00 PM EDT [facility] Name Value Range Interpretation Code Description Data Source(s) Weight (Calculated Kilograms) 106.96 106.96 [facility] Height (Calculated Centimeters) 160.02 160. 02 [facility] Body Mass Index (BMI) 41.8 41.8 [facility] Weight (Calculated Kilograms) 106.96 106.96 [facility] Height (Calculated Centimeters) 160.02 160. 02 [facility] Body Mass Index (BMI) 41.8 41.8 [facility] Weight (Calculated Kilograms) 106.96 106.96 [facility] Height (Calculated Centimeters) 160.02 160. 02 [facility] Body Mass Index (BMI) 41.8 41.8 [facility] ID Date Data Source [id number] 01/08/2021 01:21:00 PM EDT [facility] Hospital Name Value Range Interpretation Code Description Data Source(s) Weight Measurement Method 1 1 [facility] Weight (Calculated Kilograms) 106.96 106.96 [facility] Weight 4032 4032 [facility] Temperature 97.2 97.2 [facility] Respiratory Rate [address] [facility] Pulse Rate 67 67 [facility] Height (Calculated Centimeters) 160.02 160. 02 [facility] Height 63 63 [facility] Blood Pressure 108/63 108/63 [facility] Body Mass Index (BMI) 41.8 41.8 [facility] Weight (Calculated Kilograms) 106.96 106.96 [facility] Height (Calculated Centimeters) 160.02 160. 02 [facility] Body Mass Index (BMI) 41.8 41.8 [facility] Weight (Calculated Kilograms) 106.96 106.96 [facility] Height (Calculated Centimeters) 160.02 160. 02 [facility] Body Mass Index (BMI) 41.8 41.8 [facility] ID Date Data Source [id number] 01/09/2021 12:02:00 AM EDT [facility] Hospital Name Value Range Interpretation Code Description Data Source(s) Weight (Calculated Kilograms) 106.96 106.96 [facility] Height (Calculated Centimeters) 160.02 160. 02 [facility] Body Mass Index (BMI) 41.8 41.8 [facility] ID Date Data Source [id number] 01/17/2021 07:07:00 AM EDT [facility] Hospital Name Value Range Interpretation Code Description Data Source(s) Weight (Calculated Kilograms) 106.96 106.96 [facility] Weight 3856 3856 [facility] Temperature 97.3 97.3 [facility] Respiratory Rate [address] [facility] Pulse Rate 72 72 [facility] Height (Calculated Centimeters) 160.02 160. 02 [facility] Height 63.5 63.5 [facility] Blood Pressure 106/68 106/68 [facility] Body Mass Index (BMI) 41.8 41.8 [facility] Weight (Calculated Kilograms) 106.96 106.96 [facility] Weight 3856 3856 [facility] Temperature 97.3 97.3 [facility] Respiratory Rate [address] [facility] Pulse Rate 72 72 [facility] Height (Calculated Centimeters) 160.02 160. 02 [facility] Height 63.5 63.5 [facility] Blood Pressure 106/68 106/68 [facility] Body Mass Index (BMI) 41.8 41.8 [facility] Weight (Calculated Kilograms) 106.96 106.96 [facility] Height (Calculated Centimeters) 160.02 160. 02 [facility] Body Mass Index (BMI) 41.8 41.8 [facility] ID Date Data Source [id number] 03/24/2021 01:28:00 PM EDT [facility] Name Value Range Interpretation Code Description Data Source(s) Weight (Calculated Kilograms) 106.96 106.96 [facility] Height (Calculated Centimeters) 160.02 160. 02 [facility] Body Mass Index (BMI) 41.8 41.8 [facility] ID Date Data Source [id number] 01/27/2021 11:20:00 AM [facility] Hospital Name Value Range Interpretation Code Description Data Source(s) Weight (Calculated Kilograms) 106.96 106.96 [facility] Height (Calculated Centimeters) 160.02 160. 02 [facility] Body Mass Index (BMI) 41.8 41.8 [facility] ID Date Data Source [id number] 12/28/2020 07:45:00 PM [facility] Hospital Name Value Range Interpretation Code Description Data Source(s) Weight (Calculated Kilograms) 106.96 106.96 [facility] Height (Calculated Centimeters) 160.02 160. 02 [facility] Body Mass Index (BMI) 41.8 41.8 [facility] ID Date Data Source [id number] 12/20/2020 09:28:00 PM [facility] Name Value Range Interpretation Code Description Data Source(s) Weight (Calculated Kilograms) 106.96 106.96 [facility] Height (Calculated Centimeters) 160.02 160. 02 [facility] Body Mass Index (BMI) 41.8 41.8 [facility] ID Date Data Source [id number] 12/21/2020 12:07:00 AM [facility] Name Value Range Interpretation Code Description Data Source(s) Weight (Calculated Kilograms) 93.58 93.58 [facility] Height (Calculated Centimeters) 160.02 160. 02 [facility] Body Mass Index (BMI) 36.5 36.5 [facility] ID Date Data Source [id number] 01/27/2021 11:20:00 AM [facility] Name Value Range Interpretation Code Description Data Source(s) Weight (Calculated Kilograms) 106.96 106.96 [facility] Height (Calculated Centimeters) 160.02 160. 02 [facility] Body Mass Index (BMI) 41.8 41.8 [facility] ID Date Data Source [id number] 12/11/2020 08:09:00 PM [facility] Name Value Range Interpretation Code Description Data Source(s) Weight (Calculated Kilograms) 106.96 106.96 [facility] Height (Calculated Centimeters) 160.02 160. 02 [facility] Body Mass Index (BMI) 41.8 41.8 [facility] Weight Measurement Method 1 1 [facility] Weight (Calculated Kilograms) 106.96 106.96 [facility] Weight 3952 3952 [facility] Temperature 97 97 [facility] Respiratory Rate [address] [facility] Pulse Rate 85 85 [facility] Height (Calculated Centimeters) 160.02 160. 02 [facility] Height 64 64 [facility] Blood Pressure 110/60 110/60 [facility] Body Mass Index (BMI) 41.8 41.8 [facility] Weight (Calculated Kilograms) 106.96 106.96 [facility] Height (Calculated Centimeters) 160.02 160. 02 [facility] Body Mass Index (BMI) 41.8 41.8 [facility] ID Date Data Source [id number] 01/20/2021 12:43:00 PM EDT [facility] Name Value Range Interpretation Code Description Data Source(s) Weight (Calculated Kilograms) 106.96 106.96 [facility] Height (Calculated Centimeters) 160.02 160. 02 [facility] Body Mass Index (BMI) 41.8 41.8 [facility] ID Date Data Source [id number] 12/09/2020 01:23:00 PM EST [facility] spital Name Value Range Interpretation Code Description Data Source(s) Weight Measurement Method 8 8 [facility] Weight (Calculated Kilograms) 93.58 93.58 [facility] Weight 3920 3920 [facility] pital Temperature Source 7 7 [facility] Temperature 96.8 96.8 [facility] spital Respiratory Effort 1 1 [facility] Respiratory Rate 18 18 [facility] Pulse Assessment Method 4 4 G [facility] Pulse Rate 80 80 [facility] pital Height (Calculated Centimeters) 160.02 160. 02 [facility] Height 63 63 [facility] Blood Pressure 134/80 134/80 [facility] Body Mass Index (BMI) 36.5 36.5 [facility] Weight Measurement Method 8 8 [facility] Weight (Calculated Kilograms) 93.58 93.58 [facility] Weight 3920 3920 [facility] pital Temperature Source 7 7 [facility] Temperature 96.8 96.8 [facility] spital Respiratory Effort 1 1 [facility] Respiratory Rate 18 18 [facility] Pulse Assessment Method 4 4 G [facility] Pulse Rate 99 99 [facility] pital Height (Calculated Centimeters) 160.02 160. 02 [facility] Height 63 63 [facility] Blood Pressure 144/88 144/88 [facility] Body Mass Index (BMI) 36.[address] Weight (Calculated Kilograms) 93.58 93.58 [facility] Height (Calculated Centimeters) 160.02 160. 02 [facility] Body Mass Index (BMI) 36.[address] ID Date Data Source [id number] 12/06/2020 01:44:00 PM [facility] spital Name Value Range Interpretation Code Description Data Source(s) Weight (Calculated Kilograms) 93.58 93.58 [facility] Height (Calculated Centimeters) 160.02 160. 02 [facility] Body Mass Index (BMI) 36.[address] ID Date Data Source [id number] 11/28/2020 08:38:00 AM [facility] Name Value Range Interpretation Code Description Data Source(s) Weight (Calculated Kilograms) 106.96 106.96 [facility] Height (Calculated Centimeters) 160.02 160. 02 [facility] Body Mass Index (BMI) 41.8 41.8 [facility] ID Date Data Source [id number] 11/28/2020 12:18:00 PM EST [facility] spital Name Value Range Interpretation Code Description Data Source(s) Weight (Calculated Kilograms) 93.58 93.58 [facility] Height (Calculated Centimeters) 160.02 160. 02 [facility] Body Mass Index (BMI) 36.5 36.5 [facility] Weight (Calculated Kilograms) 93.58 93.58 [facility] Height (Calculated Centimeters) 160.02 160. 02 [facility] Body Mass Index (BMI) 36.5 36.5 [facility] ID Date Data Source [id number] 11/22/2020 01:11:00 AM EST [facility] Hospital Name Value Range Interpretation Code Description Data Source(s) Weight (Calculated Kilograms) 106.96 106.96 [facility] Height (Calculated Centimeters) 160.02 160. 02 [facility] Body Mass Index (BMI) 41.8 41.8 [facility] ID Date Data Source [id number] 01/06/2021 12:26:00 PM EDT [facility] Name Value Range Interpretation Code Description Data Source(s) Weight (Calculated Kilograms) 106.96 106.96 [facility] Height (Calculated Centimeters) 160.02 160. 02 [facility] Body Mass Index (BMI) 41.8 41.8 [facility] ID Date Data Source [id number] 11/15/2020 12:45:00 PM EST [facility] Name Value Range Interpretation Code Description Data Source(s) Weight (Calculated Kilograms) 106.96 106.96 [facility] Height (Calculated Centimeters) 160.02 160. 02 [facility] Body Mass Index (BMI) 41.8 41.8 [facility] ID Date Data Source [id number] 11/14/2020 05:06:00 PM [facility] Hospital Name Value Range Interpretation Code Description Data Source(s) Weight Measurement Method 1 1 [facility] Weight (Calculated Kilograms) 106.96 106.96 [facility] Weight 3920 3920 [facility] Temperature 97 97 [facility] Respiratory Rate [address] [facility] Pulse Rate 62 62 [facility] Height (Calculated Centimeters) 160.02 160. 02 [facility] Height 63 63 [facility] Blood Pressure 104/66 104/66 [facility] Body Mass Index (BMI) 41.8 41.8 [facility] Weight (Calculated Kilograms) 106.96 106.96 [facility] Height (Calculated Centimeters) 160.02 160. 02 [facility] Body Mass Index (BMI) 41.8 41.8 [facility] ID Date Data Source [id number] 11/08/2020 02:04:[address] [facility] Name Value Range Interpretation Code Description Data Source(s) Weight (Calculated Kilograms) 93.58 93.58 [facility] Height (Calculated Centimeters) 160.02 160. 02 [facility] Body Mass Index (BMI) 36.5 36.5 [facility] ID Date Data Source [id number] 11/02/2020 03:02:00 PM EST [facility] Name Value Range Interpretation Code Description Data Source(s) Weight (Calculated Kilograms) 106.96 106.96 [facility] Height (Calculated Centimeters) 160.02 160. 02 [facility] Body Mass Index (BMI) 41.8 41.8 [facility] Weight (Calculated Kilograms) 106.96 106.96 [facility] Height (Calculated Centimeters) 160.02 160. 02 [facility] Body Mass Index (BMI) 41.8 41.8 [facility] Weight (Calculated Kilograms) 106.96 106.96 [facility] Height (Calculated Centimeters) 160.02 160. 02 [facility] Body Mass Index (BMI) 41.8 41.8 [facility] ID Date Data Source [id number] 11/18/2020 09:18:00 AM EST [facility] Hospital Name Value Range Interpretation Code Description Data Source(s) Weight Measurement Method 1 1 [facility] Weight (Calculated Kilograms) 106.96 106.96 [facility] Weight 3904 3904 [facility] Temperature 97.3 97.3 [facility] Respiratory Rate [address] [facility] Pulse Rate 78 78 [facility] Height (Calculated Centimeters) 160.02 160. 02 [facility] Height 63 63 [facility] Blood Pressure 132/87 132/87 [facility] Body Mass Index (BMI) 41.8 41.8 [facility] Weight Measurement Method 1 1 [facility] Weight (Calculated Kilograms) 106.96 106.96 [facility] Weight 3904 3904 [facility] Temperature 97.3 97.3 [facility] Respiratory Rate [address] [facility] Pulse Rate 78 78 [facility] Height (Calculated Centimeters) 160.02 160. 02 [facility] Height 63 63 [facility] Blood Pressure 132/87 132/87 [facility] Body Mass Index (BMI) 41.8 41.8 [facility] Weight (Calculated Kilograms) 106.96 106.96 [facility] Height (Calculated Centimeters) 160.02 160. 02 [facility] Body Mass Index (BMI) 41.8 41.8 [facility] ID Date Data Source [id number] 10/18/2020 12:32:00 AM EST [facility] Name Value Range Interpretation Code Description Data Source(s) Weight (Calculated Kilograms) 106.96 106.96 [facility] Height (Calculated Centimeters) 160.02 160. 02 [facility] Body Mass Index (BMI) 41.8 41.8 [facility] ID Date Data Source [id number] 10/18/2020 11:42:00 AM EST [facility] Name Value Range Interpretation Code Description Data Source(s) Weight (Calculated Kilograms) 106.96 106.96 [facility] Height (Calculated Centimeters) 160.02 160. 02 [facility] Body Mass Index (BMI) 41.8 41.8 [facility] Weight (Calculated Kilograms) 106.96 106.96 [facility] Height (Calculated Centimeters) 160.02 160. 02 [facility] Body Mass Index (BMI) 41.8 41.8 [facility] ID Date Data Source [id number] 10/08/2020 12:05:[address] [facility] Name Value Range Interpretation Code Description Data Source(s) Weight (Calculated Kilograms) 93.58 93.58 [facility] Height (Calculated Centimeters) 160.02 160. 02 [facility] Body Mass Index (BMI) 36.5 36.5 [facility] ID Date Data Source [id number] 11/04/2020 08:53:00 AM [facility] Hospital Name Value Range Interpretation Code Description Data Source(s) Weight (Calculated Kilograms) 106.96 106.96 [facility] Height (Calculated Centimeters) 160.02 160. 02 [facility] Body Mass Index (BMI) 41.8 41.8 [facility] ID Date Data Source [id number] 09/23/2020 11:52:00 PM [facility] Hospital Name Value Range Interpretation Code Description Data Source(s) Weight (Calculated Kilograms) 106.96 106.96 [facility] Height (Calculated Centimeters) 160.02 160. 02 [facility] Body Mass Index (BMI) 41.8 41.8 [facility] ID Date Data Source [id number] 09/24/2020 06:41:00 AM [facility] Name Value Range Interpretation Code Description Data Source(s) Weight (Calculated Kilograms) 106.96 106.96 [facility] Height (Calculated Centimeters) 160.02 160. 02 [facility] Body Mass Index (BMI) 41.8 41.8 [facility] Weight Measurement Method 1 1 [facility] Weight (Calculated Kilograms) 106.96 106.96 [facility] Weight 3928.0 3928.0 [facility] Temperature 97.4 97.4 [facility] Respiratory Rate [address] [facility] Pulse Rate 74 74 [facility] Height (Calculated Centimeters) 160.02 160. 02 [facility] Height 63 63 [facility] Blood Pressure 122/70 122/70 [facility] Body Mass Index (BMI) 41.8 41.8 [facility] Weight Measurement Method 1 1 [facility] Weight (Calculated Kilograms) 106.96 106.96 [facility] Weight 3928.0 3928.0 [facility] Temperature 97.4 97.4 [facility] Respiratory Rate [address] [facility] Pulse Rate 74 74 [facility] Height (Calculated Centimeters) 160.02 160. 02 [facility] Height 63 63 [facility] Blood Pressure 122/70 122/70 [facility] Body Mass Index (BMI) 41.8 41.8 [facility] Weight (Calculated Kilograms) 106.96 106.96 [facility] Height (Calculated Centimeters) 160.02 160. 02 [facility] Body Mass Index (BMI) 41.8 41.8 [facility] ID Date Data Source [id number] 08/27/2020 12:19:00 AM [facility] Hospital Name Value Range Interpretation Code Description Data Source(s) Weight (Calculated Kilograms) 106.96 106.96 [facility] Height (Calculated Centimeters) 160.02 160. 02 [facility] Body Mass Index (BMI) 41.8 41.8 [facility] ID Date Data Source [id number] 09/23/2020 04:57:00 AM [facility] Name Value Range Interpretation Code Description Data Source(s) Weight (Calculated Kilograms) 106.96 106.96 [facility] Respiratory Rate [address] [facility] Pulse Assessment Method 4 4 [facility] Pulse Rate 73 73 [facility] Height (Calculated Centimeters) 160.02 160. 02 [facility] Blood Pressure 138/72 138/72 [facility] Body Mass Index (BMI) 41.8 41.8 [facility] Weight (Calculated Kilograms) 106.96 106.96 [facility] Respiratory Rate [address] [facility] Pulse Assessment Method 4 4 [facility] Pulse Rate 73 73 [facility] Height (Calculated Centimeters) 160.02 160. 02 [facility] Blood Pressure 138/72 138/72 [facility] Body Mass Index (BMI) 41.8 41.8 [facility] Weight (Calculated Kilograms) 106.96 106.96 [facility] Height (Calculated Centimeters) 160.02 160. 02 [facility] Body Mass Index (BMI) 41.8 41.8 [facility] ID Date Data Source [id number] 10/02/2020 01:21:00 PM [facility] Hospital Name Value Range Interpretation Code Description Data Source(s) Weight (Calculated Kilograms) 106.96 106.96 [facility] Height (Calculated Centimeters) 160.02 160. 02 [facility] Body Mass Index (BMI) 41.8 41.8 [facility] Weight (Calculated Kilograms) 106.96 106.96 [facility] Height (Calculated Centimeters) 160.02 160. 02 [facility] Body Mass Index (BMI) 41.8 41.8 [facility] ID Date Data Source [id number] 08/23/2020 06:04:00 AM [facility] Name Value Range Interpretation Code Description Data Source(s) Weight (Calculated Kilograms) 93.58 93.58 [facility] Height (Calculated Centimeters) 160.02 160. 02 [facility] Body Mass Index (BMI) 36.[address] Weight (Calculated Kilograms) 93.58 93.58 [facility] Height (Calculated Centimeters) 160.02 160. 02 [facility] Body Mass Index (BMI) 36.[address] ID Date Data Source [id number] 09/23/2020 08:53:00 AM [facility] Name Value Range Interpretation Code Description Data Source(s) Weight (Calculated Kilograms) 106.96 106.96 [facility] Height (Calculated Centimeters) 160.02 160. 02 [facility] Body Mass Index (BMI) 41.8 41.8 [facility] ID Date Data Source [id number] 09/23/2020 08:24:[address] [facility] Name Value Range Interpretation Code Description Data Source(s) Weight (Calculated Kilograms) 93.58 93.58 [facility] Height (Calculated Centimeters) 160.02 160. 02 [facility] Body Mass Index (BMI) 36.5 365 [facility] Weight (Calculated Kilograms) 93.58 93.58 [facility] Height (Calculated Centimeters) 160.02 160. 02 [facility] Body Mass Index (BMI) 36.5 36.5 [facility] Weight (Calculated Kilograms) 93.58 93.58 [facility] Height (Calculated Centimeters) 160.02 160. 02 [facility] Body Mass Index (BMI) 36.[address] [place] [id number] ID Date Data Source [id number] 10/10/2020 12:18:00 AM [facility] Name Value Range Interpretation Code Description Data Source(s) Weight (Calculated Kilograms) 93.58 93.58 [facility] Height (Calculated Centimeters) 160.02 160. 02 [facility] Body Mass Index (BMI) 36.5 36.5 [facility] ID Date Data Source [id number] 07/19/2020 02:54:00 PM EDT [facility] Name Value Range Interpretation Code Description Data Source(s) Weight (Calculated Kilograms) 106.96 106.96 [facility] Height (Calculated Centimeters) 160.02 160. 02 [facility] Body Mass Index (BMI) 41.8 41.8 [facility] ID Date Data Source [id number] 07/19/2020 03:04:00 PM EDT [facility]ital Name Value Range Interpretation Code Description Data Source(s) Weight (Calculated Kilograms) 93.58 93.58 [facility] Height (Calculated Centimeters) 160.02 160. 02 [facility] Body Mass Index (BMI) 36.[address] ID Date Data Source [id number] 07/15/2020 07:52:00 PM [facility] Name Value Range Interpretation Code Description Data Source(s) Weight (Calculated Kilograms) 106.96 106.96 [facility] Height (Calculated Centimeters) 160.02 160. 02 [facility] Body Mass Index (BMI) 41.8 41.8 [facility] ID Date Data Source [id number] 07/12/2020 04:00:00 PM T [facility] spital Name Value Range Interpretation Code Description Data Source(s) Weight (Calculated Kilograms) 93.58 93.58 [facility] Height (Calculated Centimeters) 160.02 160. 02 [facility] Body Mass Index (BMI) 36.5 365 [facility] Weight (Calculated Kilograms) 93.58 93.58 [facility] Height (Calculated Centimeters) 160.02 160. 02 [facility] Body Mass Index (BMI) 36.5 36.5 [facility] ID Date Data Source [id number] 07/05/2020 10:51:00 AM EDT [facility] spital Name Value Range Interpretation Code Description Data Source(s) Weight Measurement Method 8 8 [facility] Weight (Calculated Kilograms) 93.58 93.58 [facility] Weight 4000 4000 [facility] pital Temperature Source 3 3 [facility] Temperature 98.3 98.3 [facility] spital Respiratory Effort 1 1 [facility] Respiratory Rate 22 22 [facility] Pulse Assessment Method 4 4 G [facility] Pulse Rate 75 75 [facility] pital Height (Calculated Centimeters) 160.02 160. 02 [facility] Height 63 63 [facility] p[facility] Blood Pressure 102/78 102/78 [facility] Body Mass Index (BMI) 36.5 365 [facility] Weight Measurement Method 8 8 [facility] Weight (Calculated Kilograms) 93.58 93.58 [facility] Weight 4000 4000 [facility] pital Temperature Source 7 7 [facility] Temperature 97.0 97.0 [facility] spital Respiratory Effort 1 1 [facility] Respiratory Rate 17 17 [facility] Pulse Assessment Method 4 4 G [facility] Pulse Rate 92 92 [facility] pital Height (Calculated Centimeters) 160.02 160. 02 [facility] Height 63 63 [facility] pital Blood Pressure 116/98 116/98 [facility] Body Mass Index (BMI) 36.5 365 [facility] Weight Measurement Method 8 8 [facility] Weight (Calculated Kilograms) 93.58 93.58 [facility] Weight 4000 4000 [facility] pital Temperature Source 7 7 [facility] Temperature 97.0 97.0 [facility] spital Respiratory Effort 1 1 [facility] Respiratory Rate 17 17 [facility] Pulse Assessment Method 4 4 G [facility] Pulse Rate 92 92 [facility] pital Height (Calculated Centimeters) 160.02 160. 02 [facility] Height 63 63 [facility] Blood Pressure 116/98 116/98 [facility] Body Mass Index (BMI) 36.5 36.5 [facility] Weight (Calculated Kilograms) 93.58 93.58 [facility] Height (Calculated Centimeters) 160.02 160. 02 [facility] Body Mass Index (BMI) 36.5 36.5 [facility] ID Date Data Source [id number] 06/30/2020 11:38:00 PM EDT [facility] Name Value Range Interpretation Code Description Data Source(s) Weight (Calculated Kilograms) 106.96 106.96 [facility] Height (Calculated Centimeters) 160.02 160. 02 [facility] Body Mass Index (BMI) 41.8 41.8 [facility] ID Date Data Source [id number] 07/01/2020 07:18:[address] [facility] Name Value Range Interpretation Code Description Data Source(s) Weight (Calculated Kilograms) 93.58 93.58 [facility] Height (Calculated Centimeters) 160.02 160. 02 [facility] Body Mass Index (BMI) 36.5 365 [facility] ID Date Data Source [id number] 08/05/2020 09:57:00 AM EDT [facility] Name Value Range Interpretation Code Description Data Source(s) Weight (Calculated Kilograms) 106.96 106.96 [facility] Height (Calculated Centimeters) 160.02 160. 02 [facility] Body Mass Index (BMI) 41.8 41.8 [facility] ID Date Data Source [id number] 10/02/2020 01:20:00 PM EST [facility] Name Value Range Interpretation Code Description Data Source(s) Weight (Calculated Kilograms) 106.96 106.96 [facility] Height (Calculated Centimeters) 160.02 160. 02 [facility] Body Mass Index (BMI) 41.8 41.8 [facility] Weight Measurement Method 1 1 [facility] Weight (Calculated Kilograms) 106.96 106.96 [facility] Weight 4096 4096 [facility] Temperature 98.1 98.1 [facility] Respiratory Rate [address] [facility] Pulse Rate 60 60 [facility] Height (Calculated Centimeters) 160.02 160. 02 [facility] Height 64 64 [facility] Blood Pressure 124/66 124/66 [facility] Body Mass Index (BMI) 41.8 41.8 [facility] Weight Measurement Method 1 1 [facility] Weight (Calculated Kilograms) 106.96 106.96 [facility] Weight 4096 4096 [facility] Temperature 98.1 98.1 [facility] Respiratory Rate [address] [facility] Pulse Rate 60 60 [facility] Height (Calculated Centimeters) 160.02 160. 02 [facility] Height 64 64 [facility] Blood Pressure 124/66 124/66 [facility] Body Mass Index (BMI) 41.8 41.8 [facility] Weight (Calculated Kilograms) 106.96 106.96 [facility] Height (Calculated Centimeters) 160.02 160. 02 [facility] Body Mass Index (BMI) 41.8 41.8 [facility] ID Date Data Source [id number] 07/26/2020 11:58:00 AM EDT [facility] Name Value Range Interpretation Code Description Data Source(s) Weight (Calculated Kilograms) 106.96 106.96 [facility] Height (Calculated Centimeters) 160.02 160. 02 [facility] Body Mass Index (BMI) 41.8 41.8 [facility] ID Date Data Source [id number] 10/02/2020 01:20:00 PM EST [facility] Name Value Range Interpretation Code Description Data Source(s) Weight (Calculated Kilograms) 106.96 106.96 [facility] Height (Calculated Centimeters) 160.02 160. 02 [facility] Body Mass Index (BMI) 41.8 41.8 [facility] Weight Measurement Method 1 1 [facility] Weight (Calculated Kilograms) 106.96 106.96 [facility] Weight 3968 3968 [facility] Temperature 97.8 97.8 [facility] Respiratory Rate [address] [facility] Pulse Rate 74 74 [facility] Height (Calculated Centimeters) 160.02 160. 02 [facility] Height 63 63 [facility] Blood Pressure 128/74 128/74 [facility] Body Mass Index (BMI) 41.8 41.8 [facility] Weight Measurement Method 1 1 [facility] Weight (Calculated Kilograms) 106.96 106.96 [facility] Weight 3968 3968 [facility] Temperature 97.8 97.8 [facility] Respiratory Rate [address] [facility] Pulse Rate 74 74 [facility] Height (Calculated Centimeters) 160.02 160. 02 [facility] Height 63 63 [facility] Blood Pressure 128/74 128/74 [facility] Body Mass Index (BMI) 41.8 41.8 [facility] Weight (Calculated Kilograms) 106.96 106.96 [facility] Height (Calculated Centimeters) 160.02 160. 02 [facility] Body Mass Index (BMI) 41.8 41.8 [facility] Weight (Calculated Kilograms) 106.96 106.96 [facility] Height (Calculated Centimeters) 160.02 160. 02 [facility] Body Mass Index (BMI) 41.8 41.8 [facility] ID Date Data Source [id number] 07/16/2020 09:56:00 AM EDT [facility] Name Value Range Interpretation Code Description Data Source(s) Weight (Calculated Kilograms) 106.96 106.96 [facility] Height (Calculated Centimeters) 160.02 160. 02 [facility] Body Mass Index (BMI) 41.8 41.8 [facility] Weight Measurement Method 1 1 [facility] Weight (Calculated Kilograms) 106.96 106.96 [facility] Weight 3872 3872 [facility] Temperature 97.1 97.1 [facility] Respiratory Rate [address] [facility] Pulse Rate 68 68 [facility] Height (Calculated Centimeters) 160.02 160. 02 [facility] Height 63 63 [facility] Blood Pressure 126/79 126/79 [facility] Body Mass Index (BMI) 41.8 41.8 [facility] Weight Measurement Method 1 1 [facility] Weight (Calculated Kilograms) 106.96 106.96 [facility] Weight 3872 3872 [facility] Temperature 97.1 97.1 [facility] Respiratory Rate [address] [facility] Pulse Rate 68 68 [facility] Height (Calculated Centimeters) 160.02 160. 02 [facility] Height 63 63 [facility] Blood Pressure 126/79 126/79 [facility] Body Mass Index (BMI) 41.8 41.8 [facility] Weight (Calculated Kilograms) 106.96 106.96 [facility] Height (Calculated Centimeters) 160.02 160. 02 [facility] Body Mass Index (BMI) 41.8 41.8 [facility]
--- OUTSIDE RECORDS SUMMARY | 2021-08-30 04:52 | CCD ---
Author Author [facility] Organization [facility] Address Unknown Phone Unavailable Care Team Providers Care Cw Operator Name Role Phone Cruzito Epperson PT Unavailable [...] A WIN PA Unavailable Unavailable KARLEE, A WNI PA Unavailable Unavailable Lakeshia Mcrae MD Unavailable [...] Unavailable Morfin, L Andreas MD Unavailable Unavailable MorfinuAbree nash MD Unavailable Unavailable MorfinAubree nash MD Unavailable Unavailable Aubree Morfin MD Unavailable Unavailable MorfinAubree nash MD Unavailable Unavailable MorfinAubree nash MD Unavailable Unavailable Morfin, Aubree Johns MD Unavailable Unavailable MorfinAubree nash MD Unavailable Unavailable MorfinAubree nash MD Unavailable Unavailable MorfinAubree nash MD Unavailable Unavailable MorfinAubree ansh MD Unavailable Unavailable MorfinAubree nash MD Unavailable [...] Unavailable Unavailable Malek, Radha Lopez MD Unavailable [phone] Malek, T Hamza MD Unavailable [phone] Malek, T Hamza MD Unavailable [phone] Malek, T Hamza MD Unavailable [phone] Malek, T Hamza MD Unavailable [phone] Malek, T Hamza MD Unavailable [phone] Malek, T Hamza MD Unavailable [phone] Malek, T Hamza MD Unavailable [phone] Malek, T Hamza MD Unavailable [phone] Malek, T Hamza MD Unavailable [phone] Malek, T Hamza MD Unavailable [phone] Malek, T Hamza MD Unavailable [phone] Malek, T Hamza MD Unavailable [phone] Malek, T Hamza MD Unavailable [phone] Malek, T Hamza MD Unavailable [phone] Malek, T Hamza MD Unavailable [phone] Malek, T Hamza MD Unavailable [phone] Malek, T Hamza MD Unavailable [phone] Malek, T Hamza MD Unavailable [phone] Malek, T Hamza MD Unavailable [phone] Malek, T Hamza MD Unavailable [phone] Malek, T Hamza MD Unavailable [phone] DELILAH (HERNANDO), Renata GARLAND MD Unavailable Unavailab [...] Unavailable Unavailab le Mignon F Brown, F REGISTER CLERK REGISTER CLERK Unavailable Unavailable Mignon F Brown, F REGISTER CLERK REGISTER CLERK Unavailable Unavailable [place], Roosevelt DO Unavailable Unavailable Chau, Roosevelt DO Unavailable Unavailable [place], Roosevelt DO Unavailable Unavailable Chau, Roosevelt DO Unavailable Unavailable [place], M Galina PA Unavailable Unavailable [place], M Galina PA Unavailable Unavailable [place], M Galina PA Unavailable Unavailable [place], M Galina PA Unavailable Unavailable HINS, DAISY PA Unavailable Unavailable HINS, DAISY PA Unavailable Unavailable HINS, DAISY PA Unavailable Unavailable HINS, DAISY PA Unavailable Unavailable HINS, DAISY PA Unavailable Unavailable HINS, DAISY PA Unavailable Unavailable HINS, DAISY PA Unavailable Unavailable HINS, DAISY PA Unavailable Unavailable Baird, M Mona REGISTER CLERK Unavailable Unavailable Baird, M Mona REGISTER CLERK Unavailable Unavailable Baird, M Mona REGISTER CLERK Unavailable Unavailable Baird, M Mona REGISTER CLERK Unavailable Unavailable Baird, M Mona REGISTER CLERK Unavailable Unavailable Baird, M Mona REGISTER CLERK Unavailable Unavailable Baird, M Mona REGISTER CLERK Unavailable Unavailable Baird, M Mona REGISTER CLERK Unavailable Unavailable Baird, M Mona REGISTER CLERK Unavailable Unavailable Baird, M Mona REGISTER CLERK Unavailable Unavailable Hadian, Jesus Unavailable Unavailable Hadian, Jesus Unavailable Unavailable Hadian, Jesus Unavailable Unavailable Hadian, Jesus Unavailable Unavailable Hadian, Jesus Unavailable Unavailable Hadian, Jesus Unavailable Unavailable Hadian, Jesus Unavailable Unavailable Hadian, Jesus Unavailable Unavailable Hadian, Jesus Unavailable Unavailable Hadian, Jesus Unavailable Unavailable Hadian, Jesus Unavailable Unavailable Hadian, Jesus Unavailable Unavailable Hadian, Jesus Unavailable Unavailable Hadian, Jesus Unavailable Unavailable Hadian, Jesus Unavailable Unavailable Hadian, Jeuss Unavailable Unavailable Hadian, Jesus Unavailable Unavailable Hadian, [...] Cruz MD Unavailable Unavailable Strong, A Nelly REGISTER CLERK Unavailable Unavailable Strong, A Nelly REGISTER CLERK Unavailable Unavailable Strong, A Nelly REGISTER CLERK Unavailable Unavailable Strong, A Nelly REGISTER CLERK Unavailable Unavailable Strong, A Nelly REGISTER CLERK Unavailable Unavailable Strong, A Nelly REGISTER CLERK Unavailable Unavailable Strong, A Nelly REGISTER CLERK Unavailable Unavailable Strong, A Nelly REGISTER CLERK Unavailable Unavailable Strong, A Nelly REGISTER CLERK Unavailable Unavailable Strong, A Nelly REGISTER CLERK Unavailable Unavailable Strong, A Nelly REGISTER CLERK Unavailable Unavailable Strong, A Nelly REGISTER CLERK Unavailable Unavailable Strong, A Nelly REGISTER CLERK Unavailable Unavailable Strong, A Nelly REGISTER CLERK Unavailable Unavailable Strong, A Nelly REGISTER CLERK Unavailable Unavailable Strong, A Nelly REGISTER CLERK Unavailable Unavailable Strong, A Nelly REGISTER CLERK Unavailable Unavailable Strong, A Nelly REGISTER CLERK Unavailable Unavailable Strong, A Nelly REGISTER CLERK Unavailable Unavailable Strong, A Nelly REGISTER CLERK Unavailable Unavailable Strong, A Nelly REGISTER CLERK Unavailable Unavailable Aubree Cheng DO Unavailable Unavailable [...] Unavailable Unavailable Kayla, Annie MD Unavailable Unavailable Akyla, Annie MD Unavailable Unavailable Kayla, Annie MD [...] Unavailable Unavailable Kayla, Annie MD Unavailable Unavailable Kayal, Annie MD Unavailable Unavailable Kayla, Annie MD [...] Unavailable Kayla, Annie MD Unavailable Unavailable Aleksey, [id number] MD Nam CHARLES Unavailable [phone] Aleksey, [id number] MD Nam CHARLES Unavailable [phone] Aleksey, [id number] MD Nam CHARLES Unavailable [phone] Ale[address], [id number] MD Nam CHARLES Unavailable [phone] Aleksey, [id number] MD Nam MD Unavailable Aleksey, [id number] MD Nam MD Unavailable Aleksey, [id number] MD Nam MD Unavailable Aleksey, [id number] MD Nam MD Unavailable Aleksey, [id number] MD Nam MD Unavailable Aleksey, [id number] MD Nam MD Unavailable Aleksey, [id number] MD Nam MD Unavailable Aleksey, [id number] MD Nam MD Unavailable Aleksey, [id number] MD Nam MD Unavailable Aleksey, [id number] MD Nam MD Unavailable Aleksey, [id number] MD Nam MD Unavailable Aleksey, [id number] MD Nam MD Unavailable Aleksey, [id number] MD Nam MD Unavailable Aleskey, [id number] MD Nam MD Unavailable Aleksey, [id number] MD Nam MD Unavailable Aleksey, [id number] MD Nam MD Unavailable Aleksey, [id number] MD Nam MD Unavailable Aleksey, [id number] MD Nam MD Unavailable Aleksey, [id number] MD Nam MD Unavailable Aleksey, [id number] MD Nam MD Unavailable Aleksey, [id number] MD Nam MD Unavailable Aleksey, [id number] MD Nam MD Unavailable Aleksey, [id number] MD Nam MD Unavailable [phone] Aleksey, [id number] MD Nam CHARLES Unavailable [phone] Aleksey, [id number] MD Nam CHARLES Unavailable [phone] [address], [id number] MD Nam CHARLES Unavailable [phone], [id number] MD Nam CHARLES Unavailable [phone] Aleksey, [id number] MD Nam CHARLES Unavailable + [phone] [address], [id number] MD Nam CHARLES Unavailable [phone] Stiven Ellison Unavailable Unavailable Cleve Green MD Unavailable Unavailable Cleve Green MD Unavailable Unavailable BROWN, AMERICA MIGNON STEAM POWER PLANT OPERATOR Unavailable Unavailable BROWN, AMERICA MIGNON STEAM POWER PLANT OPERATOR Unavailable Unavailable BROWN, AMERICA MIGNON STEAM POWER PLANT OPERATOR Unavailable Unavailable BROWN, AMERICA MIGNON STEAM POWER PLANT OPERATOR Unavailable Unavailable BROWN, AMERICA MIGNON STEAM POWER PLANT OPERATOR Unavailable Unavailable BROWN, AMERICA MIGNON STEAM POWER PLANT OPERATOR Unavailable Unavailable BROWN, AMERICA MIGNON STEAM POWER PLANT OPERATOR Unavailable Unavailable BROWN, AMERICA MIGNON STEAM POWER PLANT OPERATOR Unavailable Unavailable BROWN, AMERICA MIGNON STEAM POWER PLANT OPERATOR Unavailable Unavailable BROWN, AMERICA MIGNON STEAM POWER PLANT OPERATOR Unavailable Unavailable BROWN, AMERICA MIGNON STEAM POWER PLANT OPERATOR Unavailable Unavailable BROWN, AMERICA MIGNON STEAM POWER PLANT OPERATOR Unavailable Unavailable BROWN, AMERICA MIGNON STEAM POWER PLANT OPERATOR Unavailable Unavailable BROWN, AMERICA MIGNON STEAM POWER PLANT OPERATOR Unavailable Unavailable BROWN, AMERICA MIGNON STEAM POWER PLANT OPERATOR Unavailable Unavailable BROWN, AMERICA MIGNON STEAM POWER PLANT OPERATOR Unavailable Unavailable BROWN, AMERICA MIGNON STEAM POWER PLANT OPERATOR Unavailable Unavailable BROWN, AMERICA MIGNON STEAM POWER PLANT OPERATOR Unavailable Unavailable BROWN, AMERICA MIGNON STEAM POWER PLANT OPERATOR Unavailable Unavailable BROWN, AMERICA MIGNON STEAM POWER PLANT OPERATOR Unavailable Unavailable BROWN, AMERICA MIGNON STEAM POWER PLANT OPERATOR Unavailable Unavailable BROWN, AMERICA MIGNON STEAM POWER PLANT OPERATOR Unavailable Unavailable BROWN, AMERICA MIGNON STEAM POWER PLANT OPERATOR Unavailable Unavailable BROWN, AMERICA MIGNON STEAM POWER PLANT OPERATOR Unavailable Unavailable BROWN, AMERICA MIGNON STEAM POWER PLANT OPERATOR Unavailable Unavailable BROWN, AMERICA MIGNON STEAM POWER PLANT OPERATOR Unavailable Unavailable BROWN, AMERICA MIGNON STEAM POWER PLANT OPERATOR Unavailable Unavailable BROWN, AMERICA MIGNON STEAM POWER PLANT OPERATOR Unavailable Unavailable BROWN, AMERICA MIGNON STEAM POWER PLANT OPERATOR Unavailable Unavailable BROWN, AMERICA MIGNON STEAM POWER PLANT OPERATOR Unavailable Unavailable BROWN, AMERICA MIGNON STEAM POWER PLANT OPERATOR Unavailable Unavailable BROWN, AMERICA MIGNON STEAM POWER PLANT OPERATOR Unavailable Unavailable BROWN, AMERICA MIGNON STEAM POWER PLANT OPERATOR Unavailable Unavailable BROWN, AMERICA MIGNON STEAM POWER PLANT OPERATOR Unavailable Unavailable BROWN, AMERICA MIGNON STEAM POWER PLANT OPERATOR Unavailable Unavailable BROWN, AMERICA MIGNON STEAM POWER PLANT OPERATOR Unavailable Unavailable BROWN, AMERICA MIGNON STEAM POWER PLANT OPERATOR Unavailable Unavailable BROWN, AMERICA MIGNON STEAM POWER PLANT OPERATOR Unavailable Unavailable BROWN, AMERICA MIGNON STEAM POWER PLANT OPERATOR Unavailable Unavailable BROWN, AMERICA MIGNON STEAM POWER PLANT OPERATOR Unavailable Unavailable Kocan, J Fransisca CNC MACHINIST 2ND SHIFT Unavailable Unavailable Kocan, J Fransisca CNC MACHINIST 2ND SHIFT Unavailable Unavailable Kocan, J Fransisca CNC MACHINIST 2ND SHIFT Unavailable Unavailable Kocan, J Fransisca CNC MACHINIST 2ND SHIFT Unavailable Unavailable Kocan, J Fransisca CNC MACHINIST 2ND SHIFT Unavailable Unavailable Kocan, J Fransisca CNC MACHINIST 2ND SHIFT Unavailable Unavailable Kocan, J Fransisca CNC MACHINIST 2ND SHIFT Unavailable Unavailable Kocan, J Fransisca CNC MACHINIST 2ND SHIFT Unavailable Unavailable Kocan, J Fransisca CNC MACHINIST 2ND SHIFT Unavailable Unavailable Kocan, J Fransisca CNC MACHINIST 2ND SHIFT Unavailable Unavailable Kocan, J Fransisca CNC MACHINIST 2ND SHIFT Unavailable Unavailable Kocan, J Fransisca CNC MACHINIST 2ND SHIFT Unavailable Unavailable Kocan, J Fransisca CNC MACHINIST 2ND SHIFT Unavailable Unavailable Nam Ryder MD Unavailable Unavailable [...] Unavailable Ellison, E Ciera PA PA Unavailable [phone] Ellison, E Ciera PA PA Unavailable [phone] Ellison, E Ciera PA PA Unavailable [phone] Ellison, E Ciera PA PA Unavailable [phone] Ellison, E Ciera PA PA Unavailable [phone] ESTRADA COLINDRES MD Unavailable Unavailable ESTRADA COLINDRES [...] 50 Claudio Sood MD Unavailable [phone] Claudio Sood MD Unavailable [phone] Claudio Sood MD Unavailable [phone] Claudio Sood MD Unavailable Barrie Claudio Suarez MD Unavailable [phone] Barrie Claudio Suarez MD Unavailable [phone] Barrie Claudio Suarez MD Unavailable [phone] Barrie Claudio Suarez MD Unavailable [phone] Barrie Claudio Suarez MD Unavailable [phone] MARAVEGIAS, Guevara PINEDA MD Unavailable Unavailable MARAVEGIAS, [...] Unavailable Michelle, F Vladimir PA Unavailable Unavailable Hawthorne, F Vladimir PA Unavailable Unavailable Michelle, F Vladimir PA Unavailable Unavailable Michelle, F Vladimir PA Unavailable Unavailable Michelle, F Vladimir PA Unavailable Unavailable Hawth[place], F Vladimir PA Unavailable Unavailable [place], F Vladimir PA Unavailable Unavailable [place], F Vladimir PA Unavailable Unavailable Michelle, F Vladimir PA Unavailable Unavailable [place], F Vladimir PA Unavailable Unavailable ZEGIL, D ANN REGISTER CLERK Unavailable Unavailable ZEGIL, D ANN REGISTER CLERK Unavailable Unavailable ZEGIL, D ANN REGISTER CLERK Unavailable Unavailable DELILAH (HERNANDO), Renata GARLAND MD [...] (HERNANDO), Renata GARLAND MD Unavailable Unavailab le EDLILAH (HERNANDO), Renata GARLAND MD Unavailable Unavailab le [...] GARLAND MD Unavailable Unavailab le DELILAH (HERNANDO), Rentaa GARLAND MD Unavailable Unavailab le DELILAH (HERNANDO), Renata GARLAND MD Unavailable Unavailab le DELILAH (HERNANDO), Renata GARLAND MD Unavailable Unavailab le DELILAH (HERNANDO), Renata GARLAND MD Unavailable Unavailab le DELILAH (HERNANDO), Renata GARLAND MD Unavailable Unavailab le DELILAH (HERNANDO), Rneata GARLAND MD Unavailable Unavailab le Chater, Khoa [...] Unavailable Unavailable Ananth, J Radha PA Unavailable [phone] Ananth, J Radha PA Unavailable [phone] Ananth, J Radha PA Unavailable [phone] Ananth, J Radha PA Unavailable [phone] Provider, Generic Unavailable Unavailable UNKNOWN Unavailable Unavailable [...] Unavailable + Aubree Tarango MD Unavailable + Prosper Aubree Ann Unavailable Unavailable Ortiz Aguero Unavailable Unavailable Ortiz Aguero Unavailable Unavailable Ortiz Aguero Unavailable Unavailable Re-disclosure [...] is protected by Article 27-F of the [facility] Public Health law. If you continue you may have access to information: Regarding HIV / AIDS; Provided by facilities licensed or operated by the [facility] Office of Mental Health; or Provided by the [facility] Office for People With Developmental Disabilities. If such information is present, then the following [facility] mandated warning applies: This information has been [...] law may result in a fine or care home sentence or both. A general authorization for the release of medical or other information is NOT sufficient authorization for further disc losure. Allergies and Adverse Reactions Type Description Substance Reaction Status Data Source(s ) Drug allergy Drug allergy ustekinumab (From Stelara) Other S [facility] Drug allergy Drug allergy silver (From Tegaderm AG Mesh) Itching I [facility] Drug allergy Drug allergy sulfasalazine Other S [facility] Drug allergy Drug allergy Sulfa (Sulfonamide Antibiotics) Other S [facility] Drug allergy Drug allergy metoclopramide HCl (From Reglan) Hallucinat ions S [facility] Drug allergy Drug allergy ustekinumab (From Stelara) Macular Edema [facility] Drug allergy Drug allergy eculizumab (From Soliris) Anaphy lactic Shock Unknown Reaction [facility] Drug allergy Drug allergy adhesive tape skin irritation/redness M [facility] Drug allergy Drug allergy sulfasalazine (From Azulfidine) Liver failure S Toxic Hepatitis S [facility] Drug allergy Drug allergy Sulfa (Sulfonamide Antibiotics) Liver failure S Toxic Hepatitis S [facility] Drug allergy Drug allergy duloxetine HCl (From Cymbalta) serotonin syndrome S [facility] Drug allergy Drug allergy metoclopramide HCl (From Reglan) Hallucinat ions [facility] Family History Family Member Name Family Member Gender Family Member Status Date o f Status Description Data Source(s) Unknown Unknown Problem MEDENT (Dr Estrada Colindres) Encounters Encounter Providers Location Date Indications Data Source(s ) Emergency Attender: Erick DAHLttender: Purvi arevalo MD [facility]-ED 08/23/2021 10:55:00 AM EST - 08/23/2021 02:46:00 PM EST SWELLING OF TONGUE, DIFFICULTY SWALLOING [facility] SWELLING OF TONGUE, DIFFICULTY SWALLOING Patient discharged. Outpatient Attender: UNKNOWN [facility]-LABEJN 07/31/2021 03:12:00 PM E [facility] Outpatient Attender: Valerie Tarango MDAttender: Valerie Tarango MD E D-LABPNP 07/31/2021 01:22:00 PM EDT - 07/31/2021 01:23:00 PM EDT R7303 [id number] [facility] R7303 E7800 Patient discharged. Outpatient Attender: Valerie Tarango MD [facility]-CPSLAPCP 2020 02:21:00 PM EDT - 07/29/2021 02:22:00 PM EDT [facility] Patient discharged. Outpatient Attender: Valerie Tarango MDAttender: Valerie Tarango MD E D-LAB 07/16/2021 03:26:00 PM EDT - 07/16/2021 03:27:00 PM EDT D72.829 [facility] D72.829 Patient discharged. OFFICE OUTPATIENT NEW 30 MINUTES Attender: Andreas Morfin MD Physic al Therapy 07/16/2021 09:00:00 AM EDT [facility] ([facility]) Emergency Attender: WIN CEDILLO ED-ED 07/10 05:53:00 PM EDT - 07/10/2021 07:14:00 PM EDT JAW AND EAR PAIN, CRACKED TOOTH [facility] JAW AND EAR PAIN, CRACKED TOOTH Patient discharged. Outpatient Attender: UNKNOWN [facility]-LABEJN 07/03/2021 08:12:00 PM E DT [facility] Outpatient Attender: Nam Ryder MDAttender: [id number] Nam Ryder MD ED-LABPNP 07/03/2021 04:07:00 PM EDT - 07/03/2021 04:08:00 PM EDT L40.50 [facility] L40.50 Patient discharged. Outpatient Attender: BAYLEE HENAO [facility] 06/12 12:53:00 PM EDT - 07/02/2021 12:54:00 PM EDT [facility] Patient discharged. Outpatient Referrer: Nelly Aguilar REGISTER CLERK 07/01/2021 10:16:14 AM EDT [facility] Outpatient Attender: [id number] Nam Ryder MD [facility]-CPSC ARHE 06/23/2021 01:47:00 PM EDT - 06/23/2021 01:48:00 PM EDT [facility] Patient discharged. Emergency Attender: Ann Cheng DOAttender: Ann guerrero DO CPSCAORT-ED 06/21/2021 09:57:00 PM EDT - 06/22/2021 01:52:00 AM EDT POST SURGICAL PAIN [facility] POST SURGICAL PAIN Patient discharged. Outpatient Attender: BAYLEE HENAO MD CPSJUDY-SDCSDC 2020 06:38:00 AM EDT - 06/14/2021 01:00:00 PM EDT HYSTERECTOMY; CERVICAL POLYPS [facility] HYSTERECTOMY; CERVICAL POLYPS Patient discharged. Outpatient Attender: BAYLEE SHRESTHA-SDCSDC 06/13/2021 1 1:49:00 AM EDT DNC [facility] DN Outpatient Attender: BAYLEE HENAO MD ED-LABPNP 2020 09:00:00 AM EDT - 06/11/2021 09:01:00 AM EDT Z01.812 [facility] Z01.812 Patient discharged. Outpatient Attender: BAYLEE HENAO MD CPS[facility]UDY-CPSCNOBG 05/12 01:23:00 PM EDT - 06/06/2021 01:24[facility]. [facility] Attender: RAD [facility]PSCAMAITE-LABEJN 06/05/2021 02:37:00 PM E [facility] Outpatient Attender: Valerie Tarango MDAttender: Valerie Saleem D-LABPNP 06/05/2021 12:44:00 PM EDT - 06/05/2021 12:45:00 PM EDT L4050 [facility] L4050 Patient discharged. Outpatient Attender: Jessica Davila MD [facility]ORT-IMACN 021 12:29:00 PM EDT - 06/04/2021 12:30:00 PM EDT R20.2 [facility] R20.2 Patient discharged. Outpatient Attender: Jesus Figueroa ED-LABPNP 01:27:00 PM EDT - 05/27/2021 01:28:00 PM EDT Z20.828 [facility] Z20.828 Patient discharged. Outpatient Attender: Jessica Davila MD CPSCAMAITE-CPSCANEU 05/14 12:54:00 PM EDT - 05/14/2021 12:55:00 PM EDT [facility] Patient discharged. Outpatient Attender: UNKNOWN [facility]-LABEJN 05/06/2021 02:45:00 PM E [facility] Outpatient Attender: Nam Ryder MDAttender: [id number] Nam Ryder MD ED-LABPNP 05/06/2021 01:40:00 PM EDT - 05/06/2021 01:41:00 PM EDT L40.50 [facility] L40.50 Patient discharged. Outpatient Attender: UNKNOWN [facility]-LABEJN 05/05/2021 09:42:00 AM E [facility] Outpatient Attender: LA Groves FNPAttender: MIGNON GROVES NP ED-IMAG 05/05/2021 07:38:00 AM EDT - 05/05/2021 07:39:00 AM EDT N950 [id number] [facility] N950 [id number] Patient discharged. Outpatient Attender: Valerie Tarango MDAttender: Valerie Tarango MD C PSCAORT-CPSLAPCP 04/22/2021 12:29:00 PM EDT - 04/22/2021 12:30:00 PM EDT K92.1,R13.10 [facility] K92.1,R13.10 Patient discharged. Preadmit Attender: [id number] Nam Ryder MD [facility]-INFU SPD 04/18/2021 10:00:00 AM [facility]-LABEJN 04/17/2021 01:57:00 PM EDT [facility] Outpatient Attender: LA Groves FNPAttender : MIGNON GROVES NP CPSCAORT-LABEJN 04/15/2021 07:29:00 PM EDT Z12.4 [facility] Z12.4 Outpatient Attender: LA Groves FNPAttender: MIGNON GROVES NP ED-LABPNP 04/15/2021 03:11:00 PM EDT - 04/15/2021 03:12:00 PM EDT Z124 [facility] Z124 Patient discharged. Outpatient Attender: MIGNON GROVES NP [facility] 03/2021 01:24:00 PM EDT - 04/15/2021 01:25:00 PM EDT [facility] Patient discharged. Emergency Attender: EROS OAKLEY MD [facility]-ED 2020 01:23:00 PM EDT - 04/11/2021 03:59:00 PM EDT ABDOMINAL PAIN [facility] ABDOMINAL PAIN Patient discharged. Outpatient Attender: DAISY CEDILLO [facility]-CPSLAUCC 11/2020 12:13:00 PM EDT - 04/11/2021 12:14:00 [facility]. Outpatient Attender: UNKNOWN [facility]-LABEJN 03/28/2021 03:07:00 PM E DT [facility] Outpatient Attender: Nam Ryder MDAttender: [phone] Nam Ryder MD ED-LABPNP 03/28/2021 12:12:00 PM EDT - 03/28/2021 12:13:00 PM EDT L4050 [facility] L4050 Patient discharged. Outpatient [facility]-LABEJN 03/25/2021 09:42:00 AM EDT [facility] Outpatient Attender: Valerie Tarango MDAttender: Valerie Tarango MD E D-LAB 03/25/2021 08:26:00 AM EDT - 03/25/2021 08:27:00 AM EDT R300 [facility] R300 Patient discharged. Preadmit Attender: [id number] Nam Ryder [facility] 03/17/2021 12:00:00 PM EDT REMICADE [facility] REMICADE Emergency Attender: Galina Dinh PAAttender: Roosevelt Ritchie DO CPSCAORT-ED 03/07/2021 11:01:00 AM EDT - 03/07/2021 03:25:00 PM EDT PALPITATIONS, PAIN WITH URINATION [facility] PALPITATIONS, PAIN WITH URINATION Patient discharged. Outpatient [facility]-LABEJN 03/03/2021 03:16:00 PM EDT [facility] Outpatient Attender: Valerie Tarango MDAttender: Valerie Tarango MD E D-LAB 03/03/2021 09:57:00 AM EDT - 03/03/2021 09:58:00 AM EDT R300 [facility] R300 Patient discharged. Outpatient Attender: Valerie Tarango [facility] 2020 10:14:00 AM EDT - 02/21/2021 10:15:00 AM EDT [facility] Patient discharged. Outpatient Attender: Win Ray MD [facility]-CPSCAENT 10:59:00 AM EDT - 02/11/2021 11:00:00 AM EDT [facility] Patient discharged. Preadmit Attender: Ciera [facility] 02/08/2021 1 2:00:00 AM EDT [facility] Outpatient Attender: UNKNOWN [facility]-LABEJN 02/07/2021 03:08:00 PM E DT [facility] Outpatient Attender: Nelly Aguilar FNPAttender: Nimisha fonseca ED-LAB 02/07/2021 10:56:00 AM EDT - 02/07/2021 10:57:00 AM EDT K7581 R1011 R1012 K219 [facility] K7581 R1011 R1012 K219 Patient discharged. Outpatient Attender: Nam Ryder MDAttender: [phone] Nam Ryder MD CPSCAORT-INFUSPD 02/06/2021 10:06:00 AM EDT - 02/06/2021 01:12:00 PM ED T REMICADE [facility] REMICADE Patient discharged. R Attender: Ciera CEDILLO ED-PRSGHPT 10:30:00 AM EDT - 02/07/2021 12:01:00 AM EDT [facility] Patient discharged. Outpatient Attender: DADA MAZARIEGOS MD ([place]) [facility] 01/24/2021 08:45:00 AM EDT - 01/24/2021 08:46:00 AM EDT [id number] [facility] [id number] Patient discharged. Emergency Attender: Vladimir CEDILLO ED-ED 02:55:00 PM EDT - 01/21/2021 05:19:00 PM EDT NUMBNESS AND TINGLING [facility] NUMBNESS AND TINGLING Patient discharged. Outpatient Attender: RAD GUARDADOLABEJN 01/20/2021 02:51:00 PM E [facility] Outpatient Attender: Valerie Tarango MDAttender: Valerie Tarango MD [facility] 01/20/2021 10:35:00 AM EDT - 01/20/2021 10:36:00 AM EDT R6881 R7303 E162 R790 E559 [facility] R6881 R7303 E162 R790 E559 Patient discharged. R Attender: NATHANAEL RESENDIZ MD ED-TRMTR 2020 10:31:00 AM EDT - 02/07/2021 12:01:00 AM EDT ANEMIA [facility] ANEMIA Patient discharged. Outpatient Attender: ESTRADA COLINDRES MD CPSAZMAITE-IMAPD 01/15/20 12:44:00 PM EDT - 01/14/2021 12:45:00 PM EDT FLUSHED PORT [facility] FLUSHED PORT Patient discharged. Outpatient Attender: RAD GUARDADOLABEJN 01/13/2021 03:06:00 PM E [facility] Outpatient Attender: ESTRADA COLINDRES MD CPSCAORT-IMAPD 01/14/20 02:09:00 PM EDT - 01/13/2021 02:10:00 PM EDT T82.594A,G70.0 [facility] T82.594A,G70.0 Patient discharged. Outpatient Attender: DADA MAZARIEGOS MD ([facility]) [facility] 01/13/2021 10:57:00 AM EDT - 01/13/2021 10:58:00 AM EDT 553.3 [facility] 553.3 Patient discharged. Emergency Attender: Carisa Adkins PAAttender: Roosevelt Ramos CPSCAORT-ED 01/10/2021 10:26:00 AM EDT - 01/10/2021 03:30:00 PM EDT ABDOMINAL PAIN [facility] ABDOMINAL PAIN Patient discharged. Outpatient Attender: [phone] Nam Ryder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 [facility] Injection, heparin sodium, (heparin lock flush), per 10 unit s 06/14/2021 12:00:00 AM [facility] Injection, dexamethasone sodium phosphate, 1mg 021 12:00:00 AM [facility] Injection, cefazolin sodium, 500 mg 06/14/2021 12:00:0 0 AM [facility] Excision of Cervix, Via Natural or Artificial Opening Endoscopic, Diagnostic EXCISION OF CERVIX, ENDO, DIAGN 06/14/2021 12:00:00 AM [facility] Extraction of Endometrium, Via Natural o r Artificial Opening Endoscopic, Diagnostic EXTRACTION OF ENDOMETRIUM, ENDO, DIAGN 06/14/2021 12:00:00 AM [facility] BLOOD TYPING ABO BLOOD TYPING SEROLOGIC ABO 06/13/2021 12:00:00 AM [facility] ANTIBODY SCREEN RBC EACH SERUM TECHNIQUE RBC ANTIBODY SCREEN 06/13/2021 12:00:00 AM [facility] COMPATIBILITY EACH UNIT ANTIGLOBULIN COMPATIBILITY TEST ANTI GLOB 06/13/2021 12:00:00 AM [facility] GONADOTROPIN CHORIONIC QUANTITATIVE CHORIONIC GONADOTROPIN T EST 06/13/2021 12:00:00 AM [facility] URINE TEST VISUAL COLOR CMPRSN METHS URINE PREGNAN CY TEST 06/13/2021 12:00:00 AM [facility] MRI SPINAL CANAL CERVICAL W/O CONTRAST MATRL MRI NECK SPINE W/O DYE 06/04/2021 12:00:00 AM [facility] 93476 NRV CNDJ TEST 9-10 STUDIES 05/14/2021 12:00:00 AM [facility] CUL PRSMPTV PTHGNC ORGANISM SCRN W/COLONY ESTIMJ CULTURE SCR EEN ONLY 04/22/2021 12:00:00 AM [facility] U0003 SARS-CoV-2 detection by nucleic acid 04/22/2021 12:00: 00 AM [facility] COLLECTION VENOUS BLOOD VENIPUNCTURE ROUTINE VENIPUNCTURE 12:00:00 AM [facility] IRON BINDING CAPACITY IRON BINDING TEST 04/22/2021 12:00:00 AM [facility] IRON ASSAY OF IRON 04/22/2021 12:00:00 AM [facility] Screening cytopathology, cervical or vag inal (any reporting system), collected in preservative fluid, automated thin layer preparation, screening by superior court clerk under physician supervision 04/15/2021 12:00:00 AM [facility] ECG ROUTINE ECG W/LEAST 12 LDS TRCG ONLY W/O I&R ELECTROCARD IOGRAM TRACING 04/11/2021 12:00:00 AM [facility] URNLS DIP STICK/TABLET RGNT NON-AUTO W/O MICRSCP URINALYSIS NONAUTO W/O SCOPE 04/11/2021 12:00:00 AM [facility] ULTRASOUND ABDOMINAL REAL TIME W/IMAGE LIMITED ECHO EXAM OF ABDOMEN 04/11/2021 12:00:00 AM [facility] URNLS DIP STICK/TABLET RGNT AUTO W/O MICROSCOPY URINALYSIS A UTO W/O SCOPE 04/11/2021 12:00:00 AM [facility] TROPONIN QUANTITATIVE ASSAY OF TROPONIN QUANT 04/11/2021 12:00:00 A M [facility] C-REACTIVE PROTEIN C-REACTIVE PROTEIN 04/11/2021 12:00:00 AM [facility] LIPASE ASSAY OF LIPASE 04/11/2021 12:00:00 AM [facility] Injection, pantoprazole sodium, per vial 04/11/2021 12 :00:00 AM [facility] IV INFUSION HYDRATION EACH ADDITIONAL HOUR 04/11/2021 12:00:00 AM [facility] URNLS DIP STICK/TABLET REAGENT AUTO MICROSCOPY URINALYSIS AU TO W/SCOPE 03/25/2021 12:00:00 AM [facility] 0003M 02/07/2021 12:00:00 AM [facility] COLLECTION VENOUS BLOOD VENIPUNCTURE ROUTINE VENIPUNCTURE 12:00:00 AM [facility] HEPATIC FUNCTION PANEL HEPATIC FUNCTION PANEL 02/07/2021 12:00:00 A M [facility] THERAPEUTIC PX 1/> AREAS EACH 15 MIN EXERCISES THERAPEUTIC E XERCISES 01/23/2021 12:00:00 AM [facility] [address] PT EVAL LOW COMPLEX 20 MIN 01/21/2021 12:00:00 AM [facility] FLUOROSCOPY SPX <1 HOUR PHYSICIAN TIME FLUOROSCOPY <1 HR PHY S/QHP 01/13/2021 12:00:00 AM [facility] Injection, sodium ferric gluconate complex in sucrose inject ion, 12.5 mg 01/09/2021 12:00:00 AM [facility] RPLCMT COMPL RUFINO CTR VAD W/SUBQ PORT 01/07/2021 12:00: 00 AM [facility] 88372 X-RAY EXAM CHEST 1 VIEW 01/07/2021 12:00:00 AM [facility] 46212 SARS-COV-2 COVID-19 AMP PRB 01/07/2021 12:00:00 AM [facility] Insertion of Totally Implantable Vascula r Access Device into Chest Subcutaneous Tissue and Fascia, Open Approach INSERTION OF TIVAD INTO CHEST SUBCU/FASC IA, OPEN APPROACH 01/07/2021 12:00:00 AM [facility] Removal of Totally Implantable Vascular Access Device from Trunk Subcutaneous Tissue and Fascia, Open Approach REMOVAL OF TIVAD FROM TRUNK SUBCU/FASCIA , OPEN APPROACH 01/07/2021 12:00:00 AM [facility] MOTION FLUOR EVAL SWLNG FUNCJ C/V REC MOTION FLUOROSCOPY/SWA LLOW 01/02/2021 12:00:00 AM [facility] SWALLOWING FUNCJ W/CINERADIOGRAPY/VIDRADIOG X-RAY XM SWLNG F UNCJ C+ 01/02/2021 12:00:00 AM [facility] 69840 X-RAY EXAM CHEST 2 VIEWS 12/22/2020 12:00:[address] [facility] NASAL ENDOSCOPY DIAGNOSTIC UNI/BI SPX NASAL ENDOSCOPY DX 12:00:[address] [facility] VITAMIN K ASSAY OF VITAMIN K 10/18/2020 12:00:[address] [facility] TOCOPHEROL ALPHA VITAMIN E ASSAY OF VITAMIN E 10/18/2020 12:00:[address] [facility] THYROID STIMULATING HORMONE TSH ASSAY THYROID STIM HORMONE 0 10/18/2020 12:00:[address] [facility] VITAMIN A ASSAY OF VITAMIN A 10/18/2020 12:00:[address] [facility] 25 HYDROXY INCLUDES FRACTIONS IF PERFORMED VITAMIN D 25 HYDR OXY 10/18/2020 12:00:[address] [facility] CYANOCOBALAMIN VITAMIN B-12 VITAMIN B-12 10/18/2020 12:00:[address] [facility] SEDIMENTATION RATE RBC NON-AUTOMATED RBC SED RATE NONAUTOMAT ED 10/18/2020 12:00:[address] [facility] HEMOGLOBIN GLYCOSYLATED A1C GLYCOSYLATED HEMOGLOBIN TEST 05/2021 12:00:[address] [facility] Infusion, normal saline solution , 250 cc 10/18/2020 1 2:00:[address] [facility] Injection, alteplase recombinant, 1 mg 10/18/2020 12:0 0:[address] [facility] Injection infliximab, 10 mg 10/18/2020 12:00:[address] [facility] CHEMOTHERAPY ADMN IV INFUSION TQ EA HR CHEMO IV INFUSION ADD L HR 10/18/2020 12:00:[address] [facility] CHEMOTX ADMN IV NFS TQ UP 1 HR SBST/DRUG CHEMO IV INFU YESI 1 HR 10/18/2020 12:00:[address] [facility] DECLOT BY THROMBOLYTIC AGENT IMPLANT DEVICE/CATH DECLOT VASC ULAR DEVICE 10/18/2020 12:00:[address] [facility] Introduction of Monoclonal Antibody into Central Vein, Percutaneous Approach INTRODUCE MONOCLONAL ANTIBODY IN CENTRAL VEIN, PERC 10/18/2020 12:00:[address] [facility] CT THORAX W/CONTRAST MATERIAL CT THORAX W/DYE 10/16/2020 12:00:[address] [facility] THROMBOPLASTIN TIME PARTIAL PLASMA/WHOLE BLOOD THROMBOPLASTI N TIME PARTIAL 10/16/2020 12:00:[address] [facility] PROTHROMBIN TIME PROTHROMBIN TIME 10/16/2020 12:00:[address] [facility] MAGNESIUM ASSAY OF MAGNESIUM 10/16/2020 12:00:[address] [facility] Colonoscopy 10/11/2020 12:00:00 AM [facility] Renata ELLISON (Dr Estrada Colindres) ARTHROCENTESIS ASPIR&/INJECTION INTERM JT/BURSA DRAIN/INJ CAMI INT/BURSA W/O US 10/01/2020 12:00:[address] [facility] Injection, triamcinolone acetonide, not otherwise specified , 10 mg 10/01/2020 12:00:[address] [facility] Ondansetron 1 mg, oral, fda approved pre scription anti-emetic, for use as a complete therapeutic substitute for an iv anti-emetic at the time of chemotherapy treatment, not to exceed a 48 hour dosage regimen 09/12/2020 12:00:[address] [facility] FLUOROSCOPIC GUIDANCE NEEDLE PLACEMENT NEEDLE LOCALIZATION B Y XRAY 08/22/2020 12:00:[address] [facility] ARTHROCENTESIS ASPIR&/INJECTION MAJOR JT/BURSA DRAIN/INJ SETH NT/BURSA W/O US 08/22/2020 12:00:[address] [facility] Injection, ropivacaine hydrochloride, 1 mg 08/22/2020 12:00:[address] [facility] Injection, methylprednisolone acetate, 80 mg 0 12:00:[address] [facility] RADEX SPINE LUMBOSACRAL 2/3 VIEWS X-RAY EXAM L-S SPINE 2/3 V WS 07/29/2020 12:00:00 AM EDT [facility] MRI ANY JT LOWER EXTREM W/O CONTRAST MATRL MRI JNT OF LWR EX NAMITA W/O DYE 07/16/2020 12:00:00 AM [facility] Results ID Date Data Source [id number] 08/23/2021 10:55:00 AM EST [facility] Name: ANGELIA ARTHUR [facility] Rec #: [id number] : 1965 Age/Sex: 55F Date of Service: 08/23/21 PHYSICIAN CHART Physician Documentation [facility] Name: Angelia Arthur Age: 55 yrs Sex: [...] causing it to be painful to swallow.. 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 ROS: 11:41 ENT: Positive for dental pain, [...] Order name: Cbc With Auto Differe ntial [facility] 08/23 11:21 Order name: COMMET [facility] 08/23 11:21 Order name: C-Reactive Protein,Wide Range [facility] 08/23 11:21 Order name: Lactic Acid [facility] 08/23 11:21 Order name: CT Neck Soft Tissue W Contrast [facility] 08/23 12:34 Order name: Troponin I [facility] 08/23 12:34 Order name: Emergency Room EKG [...] rce(s) Supporting Document(s) ID Date Data Source [id number] 08/23/2021 10:55:[address] [facility] Name: ANGELIA ARTHUR [facility] Rec #: [id number] [id number] : 1965 Age/Sex: 55F Date of Service: 08/23/21 DISPOSITION SUMMARY Discharge Summary [facility] Name:Angelia Arthur Emergency Department Age:55 yrs Sex:Female [...] rce(s) Supporting Document(s) ID Date Data Source [id number] 08/23/2021 10:55:00 AM EST [facility] Name: ANGELIA ARTHUR [facility] Rec #: [id number] : 1965 Age/Sex: 55F Date of Service: 08/23/21 NURSE CHART Nurse's Notes [facility] Name: Angelia Arthur Age: 55 yrs Sex: Female : 1965 Arrival Date: 08/23/2021 Time: 10:55 Bed 12 Private MD: Valerie Tarango L Diagnosis: Dysphagia, unspecified Presentation: 08/23 11:05 Transition of care: patient was not received from another [facility] setting of care. Presenting complaint: Patient states - Started with tongue swelling and dysphagia on . Painful to swallow. Have you travelled in the last 30 days? No. Have you had contact with an individual with a confirmed diagnosis of Ebola or COVID-19? No. 11:05 Method Of Arrival: Walk-In [facility] 11:05 Acuity: Urgent - 3 [facility] Triage Assessment: 11:06 SEPSIS SCREEN: A Confirmed [...] aching, The pain is described as continuous. 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 Screenin:11 AUDIT 1. How often do you [...] Mass Index 44.29 (113.40 kg, 160.02 cm) [facility] ED Course: 11:00 Patient arrived in ED. cc4 11:05 Valerie Tarango MD is Private Physician. kendrick 11:06 Triage completed. kendrick 11:07 Arm band placed on right wrist. Patient placed in exam room [facility] Patient has correct armband on for positive [...] in reach, Side rails up X 1. residential monitor on. Pulse on is on. NIBP on. [...] 1100ml. jv2 Outcome: 14:33 Discharge ordered by [facility] 14:45 Patient verbalized understanding of disposition jv2 [...] rce(s) Supporting Document(s) ID Date Data Source [id number] 08/25/2021 09:20:00 AM ANTONIO Doherty [facility] Name: ANGELIA ARTHUR : 1965 Age/Sex: 55F Ordering Provider: NGUYEN Sthal Med Rec #: [id number] Reg Status:[facility] ER Room #: Date of Service: 08/23/21 Report Number: [id number] cc: Valerie Tarango MD; NGUYEN Stahl Send Report To: Reason for exam: Chest Pain SINUS RHYTHM LOWER QRS VOLTAGE IN PRECORDIAL LEADS COMPARED WITH 04/11/21, POSSIBLY DUE TO LEAD PLACEMENT Physician Ghost Writer: Hamilton David M.D. ECG HEART RATE: 76 /min ECG RR INTERVAL: 782 ms ECG P DURATION: 122 ms ECG QRS DURATION: 84 ms ECG LA INTERVAL: 168 ms ECG QT INTERVAL: 361 ms ECG QTC INTERVAL: 389 ms Q-T dispersion: ms ECG P AXIS: 52 deg ECG QRS AXIS: 39 deg ECG T AXIS: 39 deg REPORT SIGNATURE ON FILE 08/25/21919 Reported By: Hamilton David II, MD <<Signature on File>> Exam Date/Time: 08/23/21 1306 Order #: [id number] Dictation Date/Time: 08/25/21919 Transcribed Date/Time: 08/25/21919 Mobile Mechanic: VALDO Name Value Range Interpretation Code Description Data Ekta rce(s) Supporting Document(s) ID Date Data Source [id number] 08/23/2021 01:29:00 PM EST [facility] Name Value Range Interpretation Code Description Data Ekta rce(s) Supporting Document(s) Troponin I 0.000-0.045 Normal (applies to non-numeric resu lts) [facility] ID Date Data Source [id number] 08/23/2021 12:47:00 PM EST [facility] Name Value Range Interpretation Code Description Data Ekta rce(s) Supporting Document(s) Sodium 140 mmol/L 137-145 Normal (applies to non-numeric resul ts) [facility] Potassium 3.5-5.1 Normal (applies to non-numeric resul ts) [facility] Chloride 106 mmol/L 98-112 Normal (applies to non-numeric resul ts) [facility] Carbon Dioxide CO2 22.0-33.0 Normal (applies to non-numer ic results) [facility] Anion Gap 4.0-11.0 Normal (applies to non-numeric resul ts) [facility] BUN 12 mg/dL 7-17 Normal (applies to non-numeric resul ts) [facility] Creatinine 0.70-1.20 Below low normal [facility] GFR >60 Normal (applies to non-numeric results) [facility] Result based on MDRD formula. Glucose Level 96 mg/dL 74-99 Normal (applies to non-numeric re sults) [facility] The reference range is only applicable w hen fasting. Calcium-Uncorrected 8.4-10.2 Normal (applies to non-nume yahir results) [facility] Corrected Calcium 8.4-10.2 Normal (applies to non-numeri c results) [facility] Bilirubin,Total 0.2-1.3 Normal (applies to non-numeric results) [facility] SGOT(AST) 22 U/L 14-36 Normal (applies to non-numeric resul ts) [facility] SGPT(ALT) 35 U/L 9-52 Normal (applies to non-numeric resul ts) [facility] Alkaline Phosphatase 130 U/L 38-126 Above high normal [facility] can increase Alkaline Phosp le vels up to 2 times the normal adult value. Normal values for children and adolescents are 2 to 3 times the normal adult value. Total Protein 6.3-8.2 Normal (applies to non-numeric re sults) [facility] Albumin 3.5-5.0 Normal (applies to non-numeric resul ts) [facility] ID Date Data Source [id number] 08/23/2021 12:47:00 PM EST [facility] Name Value Range Interpretation Code Description Data Ekta rce(s) Supporting Document(s) C-Reactive Protein,Wide Range <3.00 Above high normal [facility] ID Date Data Source [id number] 08/23/2021 12:30:00 PM EST [facility] 3 hour post Lactic if elevated? Y Name Value Range Interpretation Code Description Data Ekta rce(s) Supporting Document(s) Lactic Acid 0.4-2.0 Normal (applies to non-numeric resu lts) [facility] ID Date Data Source [id number] 08/23/2021 12:29:00 PM EST [facility] Name Value Range Interpretation Code Description Data Ekta rce(s) Supporting Document(s) White Blood Count 4.8-10.8 Above high normal [facility] Red Blood Count 3.68-5.22 Normal (applies to non-numeric results) [facility] Hemoglobin 11.2-15.7 Normal (applies to non-numeric resul ts) [facility] Hematocrit 34.1-44.9 Normal (applies to non-numeric resul ts) [facility] Mean Corpuscular Volume 81-99 Normal (applies to non- numeric results) [facility] Mean Corpuscular Hemoglobin 27.0-33.0 Normal (appli es to non-numeric results) [facility] Mean Corpuscular HGB Conc 32.0-36.0 Normal (applies to no n-numeric results) [facility] Red Cell Distribution Width 11.5-14.5 Normal (appli es to non-numeric results) [facility] Platelet Count 321 X10 3/uL 130-450 Normal (applies to non-numeric results) [facility] Mean Platelet Volume 9.5-12.7 Normal (applies to non-num salome results) [facility] Imm Grans% (AUTO) 1 % 0-2 Normal (applies to non-numeri c results) [facility] Neutrophils % (AUTO) 69 % 40-75 Normal (applies to non-num salome results) [facility] Lymphocytes % (AUTO) 23 % 21-46 Normal (applies to non-num salome results) [facility] Monocytes % (AUTO) 6 % 5-12 Normal (applies to non-numer ic results) [facility] Eosinophils % (AUTO) 2 % 1-5 Normal (applies to non-num salome results) [facility] Basophils % (AUTO) 0 % 0-1 Normal (applies to non-numer ic results) [facility] Imm Grans# (AUTO) 0.0-0.5 Normal (applies to non-numeri c results) [facility] Neutrophils # (AUTO) 1.5-8.1 Above high normal [facility] Lymphocytes # (AUTO) 1.0-3.1 Normal (applies to non-num salome results) [facility] Monocytes # (AUTO) 0.2-1.3 Normal (applies to non-numer ic results) [facility] Eosinophils# (AUTO) 0.0-0.5 Normal (applies to non-nume yahir results) [facility] Basophils # (AUTO) 0.0-0.1 Normal (applies to non-numer ic results) [facility] ID Date Data Source [id number] 08/25/2021 07:55:00 AM ANTONIO [facility] Hospital Name: ANGELIA ARTHUR : 1965 Age/Sex: 55F Ordering Provider: NGUYEN Stahl Med Rec #: [id number] Reg Status: [facility] ER Room #: Date of Service: 08/23/21 Report Number: [id number] cc:Valerie Tarango MD Send Report To: [id number] CT/CT Neck Soft Tissue w Contrast Reason [...] Dictation Date/Time: 08/23/21 1352 Transcribed Date/Time: 08/25/21 7106 Mobile Mechanic: NANCY Name Value Range Interpretation Code Description Data Ekta rce(s) Supporting Document(s) ID Date Data Source [id number] 08/07/2021 10:30:00 AM EDT [facility] Name Value Range Interpretation Code Description Data Ekta rce(s) Supporting Document(s) EGD-dil [facility] CGBLFl6kCcNUXbLnSPFdEwfCLWpjRMdqYURlN6I4KEdvHq4NFQfoamRmERZtVt3+PUMhOZ1roe9uFCHf gMy [file] Jose David/ip4uevoVsMEMeJSBuN0wTaU3H/qQfqFNLCEoVj3dnPZnLHgyBnp1lhL0y9podHx5E0QyPqAF25kL [file] Ana Laura+wMNo3+OUQceQ+uPMej+1gUYOPo+tVQ1w29/dVGbwayu+Ern8B+gINAqPTxdp1U9eRDflF9X/scT [file] Jose [file] yardage caller/1Lci28MXap4DKVLn97SGd7zRSmkJzY8/ab6uzaq0QDDfVCMwW60171W6Vk+PbVCXBcrkVt2isAlG [file] i6MsZ6GHVKGLM0DJk9JQH9UHOSHJHFGLQRCsMlKqLN UR4gIXHnZjP0FWEnGLS7OTO0DRGHGsLVFyTfJ8JSTfFcChQ9Jz7lEs6vyCOoOMMkJn6WbrPtNSLcLEXG J2KsqjDsVSJxMVecDPAbYGAeBf1FRFagOKEzZU1+VoE8ltTgwG7BrPqiGZAo5RHuYQIhMKBVJO0XkTiH VPW5dYSYwKXLD4OeQLhCHVrsHTcJeaetQVCpudeR/M jRQYZnWauUHsBkOTR0hrSxhQ2NOR5we0VqKD0Lf5QthpJ3wuHnMYh5Lvb2QuULEbVaFG6E ID Date Data Source [id number] 07/31/2021 09:17:00 PM EDT [facility] Name Value Range Interpretation Code Description Data Ekta rce(s) Supporting Document(s) CRP,Wide Range result <3.00 [facility] Test Performed By: [facility] [address] [place] [address] Director: Sandra Zuñiga MD ID Date Data Source [id number] 07/31/2021 05:32:00 PM EDT [facility] Name Value Range Interpretation Code Description Data Ekta rce(s) Supporting Document(s) C-Reactive Protein,Wide Range <3.00 Above high normal [facility] Test Performed By: [facility] [address] [place] [address] Director: Sandra Zuñiga MD ID Date Data Source [id number] 07/31/2021 02:34:00 PM EDT [facility] Name Value Range Interpretation Code Description Data Ekta rce(s) Supporting Document(s) Sodium 139 mmol/L 136-145 Normal (applies to non-numeric resul ts) [facility] Potassium 3.5-5.1 Normal (applies to non-numeric resul ts) [facility] Chloride 99 mmol/L 98-107 Normal (applies to non-numeric resul ts) [facility] Carbon Dioxide CO2 21-32 Normal (applies to non-numer ic results) [facility] Anion Gap 5.0-16.0 Normal (applies to non-numeric resul ts) [facility] BUN 16 mg/dL 7-18 Normal (applies to non-numeric results) [facility] Creatinine,Serum 0.7-1.2 Normal (applies to non-numeric results) [facility] GFR >60 Normal (applies to non-numeric results) [facility] Glucose Level 105 mg/dL 60-99 Above high normal [facility] Reference range is only applicable when patient is fasting Note the following drug interference: Sulfasalazine Sulfapyridine Can see falsely depressed Can see falsely elevated result with up to 17% results with up to 11% decrease in measurement increase in measurement Recommend patients be collected for this test prior to administration of either drug. Calcium 8.5-10.1 Normal (applies to non-numeric resul ts) [facility] Bilirubin,Total 0.1-1.9 Normal (applies to non-numeric results) [facility] SGOT(AST) 26 U/L 15-37 Normal (applies to non-numeric resul ts) [facility] Note the following drug interference: Sulfasalazine Sulfapyridine Can see falsely depressed Can see falsely elevated result with up to 10% results with up to 10% decrease in measurement increase in measurement Recommend patients be collected for this test prior to administration of either drug. SGPT(ALT) 38 U/L 12-78 Normal (applies to non-numeric resul ts) [facility] Note the following drug interference: Sulfasalazine Sulfapyridine Can see falsely depressed Can see falsely elevated result with up to 29% results with up to 10% decrease in measurement increase in measurement Recommend patients be collected for this test prior to administration of either drug. Alkaline Phosphatase 122 U/L 38-126 Normal (applies to non-num salome results) [facility] can increase Alkaline Phosp le vels up to 2 times the normal adult value. Normal values for children and adolescents are 2 to 3 times the normal adult value. Total Protein 6.0-8.2 Normal (applies to non-numeric re sults) [facility] Albumin Level 3.4-5.0 Normal (applies to non-numeric re sults) [facility] ID Date Data Source [id number] 07/31/2021 02:34:00 PM EDT [facility] Name Value Range Interpretation Code Description Data Ekta rce(s) Supporting Document(s) Erythrocyte Sedimentation rate 24 mm/hr 0-20 Above high maria teresa l [facility] ID Date Data Source [id number] 07/31/2021 02:34:00 PM EDT [facility] Name Value Range Interpretation Code Description Data Ekta rce(s) Supporting Document(s) White Blood Count 3.5-10.5 Above high normal [facility] Red Blood Count 3.90-5.00 Normal (applies to non-numeric results) [facility] Hemoglobin 12.0-15.5 Normal (applies to non-numeric resul ts) [facility] Hematocrit 34.9-44.5 Normal (applies to non-numeric resul ts) [facility] Mean Corpuscular Volume 81.2-95.1 Normal (applies to non- numeric results) [facility] Mean Corpuscular Hgb 25.6-32.2 Normal (applies to non-num salome results) [facility] Mean Corpuscular Hgb Conc 32.0-36.0 Normal (applies to no n-numeric results) [facility] Red Cell Distribution Width 11.9-15.5 Normal (appli es to non-numeric results) [facility] Platelet Count 303 x10 3/uL 150-450 Normal (applies to non-numeric results) [facility] Mean Platelet Volume 9.4-12.4 Normal (applies to non-num salome results) [facility] Neutrophils% (Auto) 31.0-71.0 Normal (applies to non-nume yahir results) [facility] Lymphocytes% (Auto) 20.0-55.0 Normal (applies to non-nume yahir results) [facility] Monocytes% (Auto) 4.0-12.0 Normal (applies to non-numeri c results) [facility] Eosinophils% (Auto) 1.0-8.0 Normal (applies to non-nume yahir results) [facility] Basophils% (Auto) 0.0-2.0 Normal (applies to non-numeri c results) [facility] Immature Granulocytes% (Auto) 0.0-2.0 Normal (taiwo lies to non-numeric results) [facility] Neutrophils# (Auto) 1.50-6.20 Above high normal [facility] Lymphocytes# (Auto) 1.20-4.00 Normal (applies to non-nume yahir results) [facility] Monocytes# (Auto) 0.00-0.90 Normal (applies to non-numeri c results) [facility] Eosinophils# (Auto) 0.00-0.50 Normal (applies to non-nume yahir results) [facility] Basophils# (Auto) 0.00-0.20 Normal (applies to non-numeri c results) [facility] Immature Granulocytes# (Auto) 0.00-7.00 No rmal (applies to non-numeric results) [facility] ID Date Data Source [id number] 07/31/2021 02:24:00 PM EDT [facility] Name Value Range Interpretation Code Description Data Ekta rce(s) Supporting Document(s) Triglycerides 233 mg/dL <150 Above high normal [facility] Cholesterol 198 mg/dL 100-200 Normal (applies to non-numeric resu lts) [facility] LDL Cholesterol Calculated 114 0-130 Normal (applies to n on-numeric results) [facility] HDL Cholesterol 37 mg/dL 40-60 Below low normal [facility] Cholesterol/HDL Ratio 3.6-6.7 Normal (applies to non-nu meric results) [facility] ID Date Data Source [id number] 07/31/2021 02:13:00 PM EDT [facility] Name Value Range Interpretation Code Description Data Ekta rce(s) Supporting Document(s) Hemoglobin A1c Above high normal [facility] Reference Range Normal: < 5.7% Pr ediabetes: 5.7-6.4% Diabetes: > 6.5% Estimated Avg Glucose 137 mg/dL 126-240 Normal (applies to non-numeric results) [facility] ID Date Data Source [id number] 07/16/2021 05:16:00 PM EDT [facility] Name Value Range Interpretation Code Description Data Ekta rce(s) Supporting Document(s) White Blood Count 3.5-10.5 Above high normal [facility] Red Blood Count 3.90-5.00 Normal (applies to non-numeric results) [facility] Hemoglobin 12.0-15.5 Normal (applies to non-numeric resul ts) [facility] Hematocrit 34.9-44.5 Normal (applies to non-numeric resul ts) [facility] Mean Corpuscular Volume 81.2-95.1 Normal (applies to non- numeric results) [facility] Mean Corpuscular Hgb 25.6-32.2 Normal (applies to non-num salome results) [facility] Mean Corpuscular Hgb Conc 32.0-36.0 Normal (applies to no n-numeric results) [facility] Red Cell Distribution Width 11.9-15.5 Normal (appli es to non-numeric results) [facility] Platelet Count 319 x10 3/uL 150-450 Normal (applies to non-numeric results) [facility] Mean Platelet Volume 9.4-12.4 Normal (applies to non-num salome results) [facility] Neutrophils% (Auto) 31.0-71.0 Normal (applies to non-nume yahir results) [facility] Lymphocytes% (Auto) 20.0-55.0 Normal (applies to non-nume yahir results) [facility] Monocytes% (Auto) 4.0-12.0 Normal (applies to non-numeri c results) [facility] Eosinophils% (Auto) 1.0-8.0 Normal (applies to non-nume yahir results) [facility] Basophils% (Auto) 0.0-2.0 Normal (applies to non-numeri c results) [facility] Immature Granulocytes% (Auto) 0.0-2.0 Normal (taiwo lies to non-numeric results) [facility] Neutrophils# (Auto) 1.50-6.20 Above high normal [facility] Lymphocytes# (Auto) 1.20-4.00 Above high normal [facility] Monocytes# (Auto) 0.00-0.90 Normal (applies to non-numeri c results) [facility] Eosinophils# (Auto) 0.00-0.50 Normal (applies to non-nume yahir results) [facility] Basophils# (Auto) 0.00-0.20 Normal (applies to non-numeri c results) [facility] Immature Granulocytes# (Auto) 0.00-7.00 No rmal (applies to non-numeric results) [facility] ID Date Data Source [id number] 07/08/2021 11:53:00 AM EDT [facility] Associates[facility]: TUAN Campbell BRYANTLUCY ROUTINECLINICAL HISTORY: [...] rce(s) Supporting Document(s) ID Date Data Source [id number] 07/03/2021 11:26:00 PM EDT [facility] Name Value Range Interpretation Code Description Data Ekta rce(s) Supporting Document(s) CRP,Wide Range result <3.00 [facility] Test Performed By: [facility] [address] [place] [address] Director: Sandra Zuñiga MD ID Date Data Source [id number] 07/03/2021 10:16:00 PM EDT [facility] Name Value Range Interpretation Code Description Data Ekta rce(s) Supporting Document(s) C-Reactive Protein,Wide Range <3.00 Above high normal [facility] Test Performed By: [facility] [address] [place] [address] Director: Sandra Zuñiga MD ID Date Data Source [id number] 07/03/2021 05:11:00 PM EDT [facility] Name Value Range Interpretation Code Description Data Ekta rce(s) Supporting Document(s) Sodium 140 mmol/L 136-145 Normal (applies to non-numeric resul ts) [facility] Potassium 3.5-5.1 Normal (applies to non-numeric resul ts) [facility] Chloride 100 mmol/L 98-107 Normal (applies to non-numeric resul ts) [facility] Carbon Dioxide CO2 21-32 Normal (applies to non-numer ic results) [facility] Anion Gap 5.0-16.0 Normal (applies to non-numeric resul ts) [facility] BUN 16 mg/dL 7-18 Normal (applies to non-numeric results) [facility] Creatinine,Serum 0.7-1.2 Normal (applies to non-numeric results) [facility] GFR >60 Normal (applies to non-numeric results) [facility] Glucose Level 69 mg/dL 60-99 Normal (applies to non-numeric re sults) [facility] Reference range is only applicable when patient is fasting Note the following drug interference: Sulfasalazine Sulfapyridine Can see falsely depressed Can see falsely elevated result with up to 17% results with up to 11% decrease in measurement increase in measurement Recommend patients be collected for this test prior to administration of either drug. Calcium 8.5-10.1 Normal (applies to non-numeric resul ts) [facility] Bilirubin,Total 0.1-1.9 Normal (applies to non-numeric results) [facility] SGOT(AST) 27 U/L 15-37 Normal (applies to non-numeric resul ts) [facility] Note the following drug interference: Sulfasalazine Sulfapyridine Can see falsely depressed Can see falsely elevated result with up to 10% results with up to 10% decrease in measurement increase in measurement Recommend patients be collected for this test prior to administration of either drug. SGPT(ALT) 39 U/L 12-78 Normal (applies to non-numeric resul ts) [facility] Note the following drug interference: Sulfasalazine Sulfapyridine Can see falsely depressed Can see falsely elevated result with up to 29% results with up to 10% decrease in measurement increase in measurement Recommend patients be collected for this test prior to administration of either drug. Alkaline Phosphatase 122 U/L 38-126 Normal (applies to non-num salome results) [facility] can increase Alkaline Phosp le vels up to 2 times the normal adult value. Normal values for children and adolescents are 2 to 3 times the normal adult value. Total Protein 6.0-8.2 Normal (applies to non-numeric re sults) [facility] Albumin Level 3.4-5.0 Normal (applies to non-numeric re sults) [facility] ID Date Data Source [id number] 07/03/2021 04:47:00 PM EDT [facility] Name Value Range Interpretation Code Description Data Ekta rce(s) Supporting Document(s) White Blood Count 3.5-10.5 Above high normal [facility] Red Blood Count 3.90-5.00 Normal (applies to non-numeric results) [facility] Hemoglobin 12.0-15.5 Normal (applies to non-numeric resul ts) [facility] Hematocrit 34.9-44.5 Normal (applies to non-numeric resul ts) [facility] Mean Corpuscular Volume 81.2-95.1 Normal (applies to non- numeric results) [facility] Mean Corpuscular Hgb 25.6-32.2 Normal (applies to non-num salome results) [facility] Mean Corpuscular Hgb Conc 32.0-36.0 Normal (applies to no n-numeric results) [facility] Red Cell Distribution Width 11.9-15.5 Normal (appli es to non-numeric results) [facility] Platelet Count 330 x10 3/uL 150-450 Normal (applies to non-numeric results) [facility] Mean Platelet Volume 9.4-12.4 Normal (applies to non-num salome results) [facility] Neutrophils% (Auto) 31.0-71.0 Normal (applies to non-nume yahir results) [facility] Lymphocytes% (Auto) 20.0-55.0 Normal (applies to non-nume yahir results) [facility] Monocytes% (Auto) 4.0-12.0 Normal (applies to non-numeri c results) [facility] Eosinophils% (Auto) 1.0-8.0 Normal (applies to non-nume yahir results) [facility] Basophils% (Auto) 0.0-2.0 Normal (applies to non-numeri c results) [facility] Immature Granulocytes% (Auto) 0.0-2.0 Normal (taiwo lies to non-numeric results) [facility] Neutrophils# (Auto) 1.50-6.20 Above high normal [facility] Lymphocytes# (Auto) 1.20-4.00 Normal (applies to non-nume yahir results) [facility] Monocytes# (Auto) 0.00-0.90 Normal (applies to non-numeri c results) [facility] Eosinophils# (Auto) 0.00-0.50 Normal (applies to non-nume yahir results) [facility] Basophils# (Auto) 0.00-0.20 Normal (applies to non-numeri c results) [facility] Immature Granulocytes# (Auto) 0.00-7.00 No rmal (applies to non-numeric results) [facility] ID Date Data Source [id number] 07/03/2021 04:47:00 PM EDT [facility] Name Value Range Interpretation Code Description Data Ekta rce(s) Supporting Document(s) Erythrocyte Sedimentation rate 26 mm/hr 0-20 Above high maria teresa l [facility] ID Date Data Source [id number] 07/01/2021 09:30:00 AM EDT [facility] Name Value Range Interpretation Code Description Data Ekta rce(s) Supporting Document(s) Follow Up [facility] VDNXBx0fAzHLTxHaOCTuCdpVQTooDNdrWMXhQ9Y7ZCcbPd7HXLskanRhCKXdXo2+ZGZbJL6jul3dRHSy gMy [file] User Experience Researcher+p31eIcPhsSTUZbdT7/Rwnl8NyvDFBpZ2+OKKJaqardNhQ1qijlhO8ABfisDq7w5aMiWmrFr0qSuyX [file] 3zD+nxYY6Q/inL1LcWY3ejAmbZTCHkttzg2xg4+RcTg6oGVS7cU68zE/8qG+cloth hauler/j5N3RTEhH7HF4qtb [file] automation clerk+tznh2BD1fTJxNkCm1W7QRuy/Dszvmqb6fZjJH3 [file] 7BvAF1ND3FokhvPuWHSoL+Juan Alberto/ZAyRtVin6UdH9nyhNDOXDSVi5mFvJ9jJqpWY0ZNNReLhc6kQROBdjY mFX0t1vhKJiY9LJ4ObDL+jM3ytLApPuK9X42SPDN3/ uSlSQ+/gxWA599e6Tv/NR0RXMivRkGEwuVJGkymh51K1iZkb1G3nC5N/vM0MRuwWVjFaBENsXjwEIHck KzlVfJZsXNlVJvqY9+YMY/84oefoFDhN2CKV63SpqqFPJaw2OP2jjTq5zXfvSLUmEVuyZB58xF8jZ7YF qSIKcTiLvCE05scoTcRiExoRux0jc1OZ+eJOtMGv3A w/AirwyWswhZpcPGTciQLbRimKVMTAhxRDc8iYrD+Ky8AU/KF1EXY1lQbpuQHkajIXGzKXeyzaAzpAue 0/055iUA9x/V+8i/aR9GsXtxtzd4/ABGUDz51o8Q398qfFMKO6hWVALgPtYaMwFEgHAVTGd5NvGnqynA fdTKCU+ZLVtokfOKI+SE+OPQk6hgfHvmRU3dQki/a+ TnokHbu+0zVnuZieKRVUzNDckhPynu6zFaqnO7j4eEtpbIIxoQq6nSXjoIV5IkTtZZajqxkaoS/r7I1d OVpfEP+Mu/5gGIJhOz0wzMQC/s5l6SUfKt9N716jHnM1MTVwQtyyMw9Arzblm5eayrQJpX6Zzx3lgjd4 oa7ME3+ump7zjzHQ/Ca109TBEOh8YR4jSN9qqxMcET 7aN4GqY/lHovbB7QDk6Z0ofEagHF86teEnLrdfwjS7OwAr1VqjZWgmbOwHx9zAz7kEY06f00lDQi3qXX rRUGlvMM0U0bTqxeu265YUU811PM4wV3Pr8ch7d5pMjhcIWlZpANvI2vWs7g1q1hGFyiQG7heLhGEu72 IAqdDGiFdM5HlfNK1YxoOXMrkgPv6OIDMm44g3auBR P1o/lSzhotoKvcSrtk0x70y8CHUzMCvyDZDN+ZcetbAb8x2QT0090vesx5n5fIEOrdLJUBQJ5Riey5I+ Z+R1HYNXrxCvEFAo0Ut9d4JGDVssBRJepDMTrOkSl66Mi/+N+BwJgrkEQ2z1thMTGFdqdg40T9rJALSG PuPhmf0COcazWaa3hLrbZDC4tx3tJs1swcJPeFp/3P jeTlQovEqaN/l10rgFFFMpFeEf+VuPqc1I3Mp4U1yGP8uKzl15O72w0vWpv+pehn5Nd9d93IEdpybfLk MeT/rLuRtV2SWZJVJ2KtyRBGQUrdLyyjlNwn9uDPjxTVLErk8/SVmw8IYTmksPnNkzyCQqkR7wCRoFCn YcrvZEz3MpFMfCaZi6qzdAFzQq0NpfRhri6CxX/fpga engineer [file] 9kz4bCg6P4Inx8jRD57aSzaku18/YKfGxRcJ2TzSMwXGkqCdBRVaG8l+71wutT9hSKylzJvQCdmYD/STEAM POWER PLANT OPERATOR [file] KouLMhbxpoq+P5EwlLmlMRAixtEj/iJ241LbC0ah+uGW/8EcJyd+CDlgoh0q80fFriHxpZK+imaW/cigar maker [file] 0et0PiPqKqU7n2amfUemmT4zg73I80oskZgNKcosE+HEAT TREAT FURNACE OPERATOR+8QLQBUoWtBJ5iZXdnZQZ8Ai8nCDKFqoCbyH [file] product info specialist/iD3kMeoGlYcR63IPRWvLI8+XED3OV9wJkzKDGUxdQcgAQdwkls07USJI0BAStnvxsda46/o5IKUv [file] nZ+sgF86xmAwlDWnwOyzvJ/2tCXo+bMywCxk0Z2U0U5f5C0HAKY+cable tester+9VvtKTOop3QK285kiIXFL5PJ [file] hand gluer and slicer+PFQfZgAQoL8XUvbH598lkwYEib6zmdWZ7jwXZu [file] radiation protection engineer/nIGxtFBbqNBTcjjA6g+4Fqm2qe2GX6jHJMHwrrQ9a0RRxihccHTm/vhyg0+wkZnLDkd8ecGJNHtI [file] 9qrjVrfX+nEfdUXm58A4iezHtV/U4Mc8ul6EIUatIGH8U40+G16zMfPp09zuRM+Ckk7zpd1hSG8P+senior business objects developer ylOL+buMkIMNSPZFCCpUYyW4ct9X622oE+zvzSUAqV V7rG31VbwHzfxZOTvGxKO1ds2RNvJWGYTm188KH+7EX/B2tU4Hy+QqlZOV8e56h7S0GZfcE7kmhOZvmJ DgbgJwsKEMItHZkUgRSAzSLiaUUPHeN57UvUpRLv2+rxng+ex+bXSkvIHkQGYShXrQr9bv52JXQWhnoW BhjJXOwz6j5k5GfIaDva3V+mPzRqE5oqeV2s4PzYAk Nhpdx3svVaXrPXrJgq3q4Pm/gnsBxgBsI6rHaGlltAE89GaptlHwxJRjxw/nJv8tVNviKOopDretadfP WkbBn5uS2r0ydZz4Ucw17xXet3t4m9IqguRek6tPFATd8cfAH0HT7Wk4Znn2d27eFn+D4fxRnGbwxFlj mkWWwp2oNbPKClFxgx6Jp0nPI9KghLnvPXYvzVRNIL f3hU0d3zO5/zvfTYY0YvPFNiQSTcz0H2z2MgcWnWrZgFABXUCtmIXCNp0AMm8mgujBfe4HP8nLaoV9LY sTOglJztk3BI4abcAm73rbvn3AeuwVrjiWEb2XwyUBzPGcooazmbJcWcwtqw2PADtQYsJRAJNt+vinny/T [file] M [file] YzpqL7Olf+AgVfx1qZ+Jose Guadalupe//mXBFkv/0nK+dHivvbE [file] DdfFLr5mNyQ++W3qqUsxEI1dOgBuAgLjTj5dSApjua8Xjh+0vWtvqr8VbghM2ObaHy9crevnWMTUH+HEAT TREAT FURNACE OPERATOR [file] y0W7av19nT0fmzc1cQx/z7rCBB973tSHimXl9eZ97sjjnpemtpe1oDBJasFyLiVcvbT8e4xaVoeu+[place] [file] foOx32qRpa+6nFQc9gVY9rbHy1iyQe5mI/[facility] [file] 5zcMrcz1tu2JOkSjfpxaKn9jBbYB865c0rkForzWrTkRKKX3/3Yao5O6jXt2a1WKE5vCzZeo/4hI/sole buffer [file] +g7aRwfekjVuACopUbXucb+oyLC8Rh1Hn5uMzxWwj7pTVfwVapOwfh/Pastora+ovCHhrMabf1mFzBiT2RNZ G4xoPfcKl4fBY4nwGpMk5lsYWv6mgIPlhcIB+pNLZN zSU9XWAYmXy9cvBTHjhm4h/NHpmNeBMPNSm+En3FhPzD9LOliSr5KelNjuQcQjo3nV7SPVeP/VZyHF+9 aZ3Y46PURpN1WWTqHq88qd0MYfhs8YooRuy+aK+nko18bszLc3trgWtmDcWkcGwAR7xQn3fM8DUH0sQw J/svVs9w0ngjR6X7W3ZwUaDEo8GaeU5a0hhIcKarVF EiLkGgnbOHgnseFdECqLv4AueEeHVp8A194MjsIM1LIihYXntTx+l82Zty2z7xwmjT0lJq45lefDLS57 C7J91ocf6IkgmFguvkZ7CoMZnzBwyJ2R9nEW8p9xR43myB04c+Pb4CVw5t0uS4YJB4mOYlX2ha8AIx5n qwvVeWT/csKwLJj8ht0Y2QbkKbKa9H5HwPphnqv/P6 0x8McFq80+fklc5WZD9MArglzw83jH76ec9TgW/L2jXt/c5KYKspabvgnxdKsk4UkE9Uzno2KQk6Neo6 L8XpqiKNQG8qA7yGtiY9y83XMc2kB8D6g8Ti9xnINwQj8qHd708XKB4g+ZzYz2xXlDaVRIklOASVZ9tG kZCsKnjU54XcM13jsLe5rcT6qKfbGo/maintenance parts technician/+7uA8S9 [file] 4RafW7N4DQxlnaVkTjFK+zDI+FLXfH/subscription crew leader/AQvyQK7hlZkPcy33fx9pM033fMOl7sX9JssdWbworp+6Pq [file] WZh41XM2E99VoGYnnjjKzzZXSF+nyZEpL9owtpU/BUSINESS SERVICES COORDINATOR+g/hs5HMd4Bw8se2f5f68n2nO1CTSIhtN8pcV [file] livestock inspector++orwuCp/C+f2k+TYcGhD3r5SYoxXc3Ks49tDI3kyCTI3pvaZ7Y0OqdnAj7dAl7QQQbXdKuGiO0Yi [file] FJbYDrssf4RdLwoFIRkR/dbeKSmbrPv+EhWU05/kizzd7snJMqztS+STEAM POWER PLANT OPERATOR/9Lm/b0xHqaCzR9bQUOh5FBB [file] BZPPxbDeL5UgdEHKSKVzB8CUEhGGHMBY6wPGFVAvEP VOn7UOTgMjKUIRk1ORF8CRAPEEmdOVP8WxKgTb0rWy0anZEwPLLsYz8AcmAmDVRiLOFRI4NehrZfRkXz VTplQNCjCLDyXq5UGSeiBHYnAC2+QpI4huIxgN1McVkqSOYsAQQhESVbXBIRFU9PjUirUFRHJyClYHjW da9QHPYabFB6eiNGSoRDe0XKmapjOCU8GvWTfjHYhT pIdT5iWlLteueepJUqchzYhBZW2qFLxXNiIySLorXDYYsakxUnfMLdCJ0QBdAqME1ldy9ZXyJ8EWZ6sY QqKn9HZGS8ZpUgDh1OBPDPK4K= ID Date Data Source [id number] 06/21/2021 09:57:00 PM EDT [facility] Name: ANGELIA ARTHUR Med Rec #: [id number] : 1965 Age/Sex: 55F Date of Service: 06/21/21 PHYSICIAN CHART Physician Documentation [facility] Name: Angelia Arthur Age: 55 yrs Sex: [...] she has no bowel or bladder disorder.. 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 Preferred Language: British. ROS: 22:45 Constitutional: I reviewed 10 systems [...] for. mlm1 22:47 ED course: Postoperative bleeding. [facility] 06/22 01:24 ED course: Radiology has reviewed [...] 00:00 Follow up: Response: Pain is decreased [facility] 06/21 23:39 Drug: HYDROmorphone 0.5 mg [hydromorphone 0.5 mg/0.5 mL arj injection syringe (0.5 mL)] Route: IVP; Site: anterior chest - left; 06/22 00:00 Follow up: Response: Pain is decreased [facility] 06/21 23:39 Drug: Ondansetron (PF) 4 mg [ondansetron HCl (PF) 4 mg/2 mL arj injection solution (2 mL)] Route: IVP; Infused Over: 2 mins; Site: anterior chest - left; 06/22 00:00 Follow up: Response: Nausea is decreased [facility] 01:47 Drug: Magnesium Citrate 300 ml [magnesium [...] Discharge Summary Sheet mlm1 - Constipation, Adult, Dqny-pu-Jned mlm1 - Opioid Pain Medicine Management mlm1 [...] rce(s) Supporting Document(s) ID Date Data Source [id number] 06/21/2021 09:57:00 PM EDT [facility] Name: ANGELIA ARTHUR [facility] Rec #: [id number] : 1965 Age/Sex: 55F Date of Service: 06/21/21 DISPOSITION SUMMARY Discharge Summary [facility] Name:Angelia Arthur Emergency Department Age:55 yrs Sex:Female [...] Discharge Instruction: Discharge Summary Sheet, Constipation, Adult, Bqnc-pb-Qdml, Opioid Pain Medicine Management, Medication Reconciliation, Fax Visit Summary for Baylee Henao MD Name Value Range Interpretation Code Description Data Ekta rce(s) Supporting Document(s) ID Date Data Source [id number] 06/21/2021 09:57:00 PM EDT [facility] Name: ANGELIA ARTHUR [facility] Rec #: [id number] : 1965 Age/Sex: 55F Date of Service: 06/21/21 NURSE CHART Nurse's Notes [facility] Name: Angelia Arthur Age: 55 yrs Sex: Female : 1965 Arrival Date: 06/21/2021 Time: 21:57 Bed 4 Private MD: Baylee Henao Diagnosis: Postoperative pain;Constipation Presentation: 06/21 22:01 Transition of care: patient was not received from another [facility] setting of care. Presenting complaint: Patient [...] COVID-19? No. 22:01 Method Of Arrival: Walk-In [facility] 22:01 Acuity: Urgent - [address] [facility] Triage Assessment: 22:03 SEPSIS SCREEN: A Confirmed or Suspected Infection is [facility] Unknown, their temperature is not <96.8 or [...] is oriented to person, place and time. 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 Historical: - Allergies: Azulfidine; Reglan; Soliris; Stelara; [...] smoker, quit smoking 2017 ago. Preferred Language: British. Screenin:07 AUDIT 1. How often do you have a drink containing alcohol? [facility] Never (0 points). Drug Abuse Screening Test: [...] & dry. 06/22 00:21 See Triage Assessment. [facility] Vital Signs: 06/21 22:03 BP 167 / 98; Pulse 104; Resp 18; Temp 98.4; Pulse Ox 97% ; jb7 Weight 113.4 kg; Height 5 ft. 3 in. (160.02 cm); Pain 4/10; 23:41 BP 128 / 68; Pulse 90; Resp 16; Pulse Ox 94% on R/A; inj 06/22 00:20 BP 120 / 59; Pulse 85; Resp 16; Pulse Ox 96% on R/A; inj 01:50 BP 146 / 76; Pulse 89; Resp 16; Pulse Ox 95% on R/A; inj 06/21 22:03 Body Mass Index 44.29 (113.40 [...] rce(s) Supporting Document(s) ID Date Data Source [id number] 06/23/2021 03:30:00 PM EDT [facility] Name Value Range Interpretation Code Description Data Ekta rce(s) Supporting Document(s) White Blood Count 4.8-10.8 Above high normal [facility] Red Blood Count 3.68-5.22 Normal (applies to non-numeric results) [facility] Hemoglobin 11.2-15.7 Normal (applies to non-numeric resul ts) [facility] Hematocrit 34.1-44.9 Normal (applies to non-numeric resul ts) [facility] Mean Corpuscular Volume 81-99 Normal (applies to non- numeric results) [facility] Mean Corpuscular Hemoglobin 27.0-33.0 Normal (appli es to non-numeric results) [facility] Mean Corpuscular HGB Conc 32.0-36.0 Normal (applies to no n-numeric results) [facility] Red Cell Distribution Width 11.5-14.5 Normal (appli es to non-numeric results) [facility] Platelet Count 301 X10 3/uL 130-450 Normal (applies to non-numeric results) [facility] Mean Platelet Volume 9.5-12.7 Normal (applies to non-num salome results) [facility] Total Cells Counted 100 0-100 Normal (applies to non-nume yahir results) [facility] Neutrophils % (manual) 53 % 40-75 Normal (applies to non-n umeric results) [facility] Lymphocytes % (manual) 22 % 21-46 Normal (applies to non-n umeric results) [facility] Monocytes % (manual) 5 % 5-12 Normal (applies to non-num salome results) [facility] Eosinophils % (manual) 1 % 1-5 Normal (applies to non-n umeric results) [facility] Basophils % (manual) 0 % 0-1 Normal (applies to non-num salome results) [facility] Band Neutrophils% (manual) 2 % 0-5 Normal (applies to n on-numeric results) [facility] Atypical Lymph% (manual) 17 % 0-5 Above high normal [facility] Neutrophils # (Manual) 1.5-8.1 Normal (applies to non-n umeric results) [facility] Lymphocytes # (Manual) 1.0-3.1 Above high normal [facility] Monocytes # (Manual) 0.2-1.3 Normal (applies to non-num salome results) [facility] Eosinophils# (Manual) 0.0-0.5 Normal (applies to non-nu meric results) [facility] Basophils # (Manual) 0.0-0.1 Normal (applies to non-num salome results) [facility] Platelet Estimate Adequate Normal (applies to non-numeri c results) [facility] Estimate agrees with automated count Slide Reviewed By Normal (applies to non-numeri c results) [facility] Slide has been reviewed and findings con firmed by a technologist/autocad technician. Slide reviewed by Pathologist for confirmation. 06/23/21 DR ZUÑIGA. Slide referred to Pathologist for review. ID Date Data Source [id number] 06/22/2021 12:03:00 AM EDT [facility] Name Value Range Interpretation Code Description Data Ekta rce(s) Supporting Document(s) Sodium 139 mmol/L 137-145 Normal (applies to non-numeric resul ts) [facility] Potassium 3.5-5.1 Normal (applies to non-numeric resul ts) [facility] Chloride 106 mmol/L 98-112 Normal (applies to non-numeric resul ts) [facility] Carbon Dioxide CO2 22.0-33.0 Normal (applies to non-numer ic results) [facility] Anion Gap 4.0-11.0 Normal (applies to non-numeric resul ts) [facility] BUN 18 mg/dL 7-17 Above high normal [facility] Creatinine 0.70-1.20 Below low normal [facility] GFR 90 mL/min >60 Normal (applies to non-numeric resul ts) [facility] Result based on MDRD formula. Glucose Level 139 mg/dL 74-99 Above high normal [facility] The reference range is only applicable w hen fasting. Calcium-Uncorrected 8.4-10.2 Normal (applies to non-nume yahir results) [facility] Corrected Calcium 8.4-10.2 Normal (applies to non-numeri c results) [facility] Bilirubin,Total 0.2-1.3 Normal (applies to non-numeric results) [facility] SGOT(AST) 18 U/L 14-36 Normal (applies to non-numeric resul ts) [facility] SGPT(ALT) 32 U/L 9-52 Normal (applies to non-numeric resul ts) [facility] Alkaline Phosphatase 111 U/L 38-126 Normal (applies to non-num salome results) [facility] can increase Alkaline Phosp le vels up to 2 times the normal adult value. Normal values for children and adolescents are 2 to 3 times the normal adult value. Total Protein 6.3-8.2 Normal (applies to non-numeric re sults) [facility] Albumin 3.5-5.0 Below low normal [facility] ID Date Data Source [id number] 06/21/2021 11:37:00 PM EDT [facility] Name Value Range Interpretation Code Description Data Ekta rce(s) Supporting Document(s) RBC,Auto Urine 0-2 Normal (applies to non-numeric r esults) [facility] WBC Urine Auto 0-10 Normal (applies to non-numeric r esults) [facility] Casts,Hyaline,Urine Auto 0-2 Normal (applies to non -numeric results) [facility] Bacteria Urine Auto None Seen Normal (applies to non-nume yahir results) [facility] Epithelial Cell Ur Auto None-Few Normal (applies to non- numeric results) [facility] ID Date Data Source [id number] 06/21/2021 11:37:00 PM EDT [facility] Name Value Range Interpretation Code Description Data Ekta rce(s) Supporting Document(s) Color,Urine Yellow Normal (applies to non-numeric resu lts) [facility] Clarity,Urine Clear Normal (applies to non-numeric re sults) [facility] Specific [place],Urine 1.001-1.030 Normal (applies to non- numeric results) [facility] PH,Urine 5.0-8.0 Normal (applies to non-numeric resul ts) [facility] Protein,Urine Negative [facility] Glucose,Urine (UA) Negative Normal (applies to non-numer ic results) [facility] Ketones,Urine Negative Normal (applies to non-numeric re sults) [facility] Blood,Urine Negative Normal (applies to non-numeric resu lts) [facility] Bilirubin,Urine Negative Normal (applies to non-numeric results) [facility] Urobilinogen,Urine Norm 0.2-1 Normal (applies to non-numer ic results) [facility] Leukocyte Esterase,Urine Negative Normal (applies to non -numeric results) [facility] Nitrite,Urine Negative Normal (applies to non-numeric re sults) [facility] ID Date Data Source [id number] 06/22/2021 01:22:00 AM EDT [facility] Hospital Name: ANGELIA ARTHUR : 1965 Age/Sex: 55F Ordering Provider: Ann Cheng DO Med Rec #: [id number] Reg Status: REG ER Room #: Date of Service: 06/21/21 Report Number: [id number] cc:Valerie Tarango MD; Ann Cheng DO Send [...] No ascites is noted. No intracranial hematoma. [place] spinal fixation device noted L5-S1 similar to [...] 06/22/21121 Dictation Date/Time: 06/22/21121 Transcribed Date/Time: 06/22/21121 Mobile Mechanic: Name Value Range Interpretation Code Description Data Ekta rce(s) Supporting Document(s) ID Date Data Source [id number] 06/19/2021 01:57:00 PM EDT [facility] Name Value Range Interpretation Code Description Data Ekta rce(s) Supporting Document(s) ID Date Data Source [id number] 06/16/2021 03:00:00 PM EDT [facility] Quantity to be Transfused 2 Transfuse W hen? On Hold Until Notified Name Value Range Interpretation Code Description Data Ekta rce(s) Supporting Document(s) BLOOD TYPE PATIENT B Positive Normal (applies to non-numer ic results) [facility] ANTIBODY SCREEN NEGATIVE Normal (applies to non-numeric results) [facility] ID Date Data Source [id number] 06/13/2021 01:17:00 PM EDT [facility] Name Value Range Interpretation Code Description Data Ekta rce(s) Supporting Document(s) Beta HCG,Quantitative 2 mIU/mL [id number] Below low normal [facility] Non- Females (ages 18-62): 1-3 mIU/mL Adult Males (ages 19-67: Less than or equal to 1 mIU/mL Females: Gestational Age: 0-1 Week: 5-50 mIU/mL 1-2 Week: 50-500 mIU/mL 2-3 Weeks: 100-5,000 mIU/mL 3-4 Weeks: 500-10,000 mIU/mL 4-5 Weeks: 1,000- 50,000 mIU/mL 5-6 Weeks: 10,000-100,000 mIU/mL 6-8 Weeks: 15,000- 200,000 mIU/mL 2-3 Months: 10,000-100,000 mIU/mL 2nd Trimester: 3000- 35757 mIU/mL 3rd Trimester: 1000-41643 mIU/ml ID Date Data Source [id number] 06/13/2021 12:53:00 PM EDT [facility] Name Value Range Interpretation Code Description Data Ekta rce(s) Supporting Document(s) White Blood Count 4.8-10.8 Above high normal [facility] Red Blood Count 3.68-5.22 Normal (applies to non-numeric results) [facility] Hemoglobin 11.2-15.7 Normal (applies to non-numeric resul ts) [facility] Hematocrit 34.1-44.9 Normal (applies to non-numeric resul ts) [facility] Mean Corpuscular Volume 81-99 Normal (applies to non- numeric results) [facility] Mean Corpuscular Hemoglobin 27.0-33.0 Normal (appli es to non-numeric results) [facility] Mean Corpuscular HGB Conc 32.0-36.0 Normal (applies to no n-numeric results) [facility] Red Cell Distribution Width 11.5-14.5 Normal (appli es to non-numeric results) [facility] Platelet Count 303 X10 3/uL 130-450 Normal (applies to non-numeric results) [facility] Mean Platelet Volume 9.5-12.7 Below low normal [facility] ID Date Data Source [id number] 06/17/2021 04:16:00 PM EDT [facility] Name Value Range Interpretation Code Description Data Ekta rce(s) Supporting Document(s) Urine HCG-POC Negative Normal (applies to non-numeric re sults) [facility] ID Date Data Source [id number] 06/11/2021 09:00:00 AM EDT [facility] Name Value Range Interpretation Code Description Data Ekta rce(s) Supporting Document(s) Respiratory specimen severe acute respir atory syndrome coronavirus 2 (SARS-CoV-2) RNA Negative (qualifier value) [facility] This lab was ordered by [facility] mandi and reported by . ID Date Data Source [id number] 06/12/2021 07:43:00 AM EDT [facility] Name Value Range Interpretation Code Description Data Ekta rce(s) Supporting Document(s) SARS-CoV-2 RNA INHOUSE Negative Normal (applies to non-n umeric results) [facility] THIS IS A STATE REPORTABLE COMMUNICABLE DISEASE. Testing was performed using the [employer] COVID-19 MDx Assay. This test has been [...] be found at the following links: Providers: https://www.[place].gov/media/099349/download Patients : https://www.[place].gov/media/935353/download Negative results do not preclude SARS-CoV-2 infection and should not be used as the sole basis for patient management decisions. Negative results must be combined with clinical observations,patient history, and epidemiological information. ID Date Data Source [id number] 06/05/2021 02:16:00 PM EDT [facility] Name Value Range Interpretation Code Description Data Ekta rce(s) Supporting Document(s) Sodium 141 mmol/L 136-145 Normal (applies to non-numeric resul ts) [facility] Potassium 3.5-5.1 Normal (applies to non-numeric resul ts) [facility] Chloride 104 mmol/L 98-107 Normal (applies to non-numeric resul ts) [facility] Carbon Dioxide CO2 21-32 Normal (applies to non-numer ic results) [facility] Anion Gap 5.0-16.0 Normal (applies to non-numeric resul ts) [facility] BUN 12 mg/dL 7-18 Normal (applies to non-numeric results) [facility] Creatinine,Serum 0.7-1.2 Normal (applies to non-numeric results) [facility] GFR >60 Normal (applies to non-numeric results) [facility] Glucose Level 80 mg/dL 60-99 Normal (applies to non-numeric re sults) [facility] Reference range is only applicable when patient is fasting Note the following drug interference: Sulfasalazine Sulfapyridine Can see falsely depressed Can see falsely elevated result with up to 17% results with up to 11% decrease in measurement increase in measurement Recommend patients be collected for this test prior to administration of either drug. Calcium 8.5-10.1 Below low normal [facility] Bilirubin,Total 0.1-1.9 Normal (applies to non-numeric results) [facility] SGOT(AST) 25 U/L 15-37 Normal (applies to non-numeric resul ts) [facility] Note the following drug interference: Sulfasalazine Sulfapyridine Can see falsely depressed Can see falsely elevated result with up to 10% results with up to 10% decrease in measurement increase in measurement Recommend patients be collected for this test prior to administration of either drug. SGPT(ALT) 42 U/L 12-78 Normal (applies to non-numeric resul ts) [facility] Note the following drug interference: Sulfasalazine Sulfapyridine Can see falsely depressed Can see falsely elevated result with up to 29% results with up to 10% decrease in measurement increase in measurement Recommend patients be collected for this test prior to administration of either drug. Alkaline Phosphatase 113 U/L 38-126 Normal (applies to non-num salome results) [facility] can increase Alkaline Phosp le vels up to 2 times the normal adult value. Normal values for children and adolescents are 2 to 3 times the normal adult value. Total Protein 6.0-8.2 Normal (applies to non-numeric re sults) [facility] Albumin Level 3.4-5.0 Normal (applies to non-numeric re sults) [facility] ID Date Data Source [id number] 06/05/2021 01:38:00 PM EDT [facility] Name Value Range Interpretation Code Description Data Keta rce(s) Supporting Document(s) Erythrocyte Sedimentation rate 25 mm/hr 0-20 Above high maria teresa l [facility] ID Date Data Source [id number] 06/05/2021 01:38:00 PM EDT [facility] Name Value Range Interpretation Code Description Data Ekta rce(s) Supporting Document(s) White Blood Count 3.5-10.5 Normal (applies to non-numeri c results) [facility] Red Blood Count 3.90-5.00 Normal (applies to non-numeric results) [facility] Hemoglobin 12.0-15.5 Normal (applies to non-numeric resul ts) [facility] Hematocrit 34.9-44.5 Normal (applies to non-numeric resul ts) [facility] Mean Corpuscular Volume 81.2-95.1 Normal (applies to non- numeric results) [facility] Mean Corpuscular Hgb 25.6-32.2 Normal (applies to non-num salome results) [facility] Mean Corpuscular Hgb Conc 32.0-36.0 Normal (applies to no n-numeric results) [facility] Red Cell Distribution Width 11.9-15.5 Normal (appli es to non-numeric results) [facility] Platelet Count 303 x10 3/uL 150-450 Normal (applies to non-numeric results) [facility] Mean Platelet Volume 9.4-12.4 Normal (applies to non-num salome results) [facility] Neutrophils% (Auto) 31.0-71.0 Normal (applies to non-nume yahir results) [facility] Lymphocytes% (Auto) 20.0-55.0 Normal (applies to non-nume yahir results) [facility] Monocytes% (Auto) 4.0-12.0 Normal (applies to non-numeri c results) [facility] Eosinophils% (Auto) 1.0-8.0 Normal (applies to non-nume yahir results) [facility] Basophils% (Auto) 0.0-2.0 Normal (applies to non-numeri c results) [facility] Immature Granulocytes% (Auto) 0.0-2.0 Normal (taiwo lies to non-numeric results) [facility] Neutrophils# (Auto) 1.50-6.20 Normal (applies to non-nume yahir results) [facility] Lymphocytes# (Auto) 1.20-4.00 Normal (applies to non-nume yahir results) [facility] Monocytes# (Auto) 0.00-0.90 Normal (applies to non-numeri c results) [facility] Eosinophils# (Auto) 0.00-0.50 Normal (applies to non-nume yahir results) [facility] Basophils# (Auto) 0.00-0.20 Normal (applies to non-numeri c results) [facility] Immature Granulocytes# (Auto) 0.00-7.00 No rmal (applies to non-numeric results) [facility] ID Date Data Source [id number] 06/05/2021 05:41:00 PM EDT [facility] Name Value Range Interpretation Code Description Data Ekta rce(s) Supporting Document(s) CRP,Wide Range result <3.00 [facility] [address] [place] [address] Director: Sandra Zuñiga MD ID Date Data Source [id number] 06/05/2021 04:38:00 PM EDT [facility] Name Value Range Interpretation Code Description Data Ekta rce(s) Supporting Document(s) C-Reactive Protein,Wide Range <3.00 Above high normal [facility] Test Performed By: [facility] [address] [place] [address] Director: Sandra Zuñiga MD ID Date Data Source [id number] 06/05/2021 06:04:00 AM EDT [facility] Hospital Name: ANGELIA ARTHUR : 1965 Age/Sex: 55F Ordering Provider: Jessica Davila MD Med Rec #: [id number] Reg Status: DEP REF Room #: Date of Service: 06/04/21 Report Number: [id number] cc:Jessica Davila MD Send Report To: [id number] MRI/MRI C Spine No Contrast Reason for [...] Date/Time: 06/04/21 1441 Transcribed Date/Time: 06/05/21 0604 Mobile Mechanic: MACHO Name Value Range Interpretation Code Description Data Ekta rce(s) Supporting Document(s) ID Date Data Source [id number] 05/27/2021 10:32:00 AM EDT [facility] Name Value Range Interpretation Code Description Data Ekta rce(s) Supporting Document(s) Respiratory specimen severe acute respir atory syndrome coronavirus 2 (SARS-CoV-2) RNA Negative (qualifier value) [place] [facility] This lab was ordered by [facility] and reported by . ID Date Data Source [id number] 05/29/2021 11:35:00 AM EDT [facility] Name Value Range Interpretation Code Description Data Ekta rce(s) Supporting Document(s) SARS-CoV-2 RNA INHOUSE Negative Normal (applies to non-n umeric results) [facility] THIS IS A STATE REPORTABLE COMMUNICABLE DISEASE. Testing was performed using the [employer] COVID-19 MDx Assay. This test has been [...] be found at the following links: Providers: https://www.fda.gov/media/172484/download Patients : https://www.fda.gov/media/583178/download Negative results do not preclude SARS-CoV-2 infection and should not be used as the sole basis for patient management decisions. Negative results must be combined with clinical observations,patient history, and epidemiological information. ID Date Data Source [id number] 05/06/2021 05:11:00 PM EDT [facility] Name Value Range Interpretation Code Description Data Ekta rce(s) Supporting Document(s) CRP,Wide Range result <3.00 [facility] Test Performed By: [facility] [address] [place] [address] Director: Sandra Zuñiga MD ID Date Data Source [id number] 05/06/2021 04:35:00 PM EDT [facility] Name Value Range Interpretation Code Description Data Ekta rce(s) Supporting Document(s) C-Reactive Protein,Wide Range <3.00 Above high normal [facility] Test Performed By: [facility] [address] [place] [address] Director: Sandra Zuñiga MD ID Date Data Source [id number] 05/06/2021 02:38:00 PM EDT [facility] Name Value Range Interpretation Code Description Data Ekta rce(s) Supporting Document(s) Sodium 143 mmol/L 136-145 Normal (applies to non-numeric resul ts) [facility] Potassium 3.5-5.1 Normal (applies to non-numeric resul ts) [facility] Chloride 104 mmol/L 98-107 Normal (applies to non-numeric resul ts) [facility] Carbon Dioxide CO2 21-32 Normal (applies to non-numer ic results) [facility] Anion Gap 5.0-16.0 Normal (applies to non-numeric resul ts) [facility] BUN 17 mg/dL 7-18 Normal (applies to non-numeric results) [facility] Creatinine,Serum 0.7-1.2 Below low normal [facility] GFR >60 Normal (applies to non-numeric results) [facility] Glucose Level 80 mg/dL 60-99 Normal (applies to non-numeric re sults) [facility] Reference range is only applicable when patient is fasting Note the following drug interference: Sulfasalazine Sulfapyridine Can see falsely depressed Can see falsely elevated result with up to 17% results with up to 11% decrease in measurement increase in measurement Recommend patients be collected for this test prior to administration of either drug. Calcium 8.5-10.1 Normal (applies to non-numeric resul ts) [facility] Bilirubin,Total 0.1-1.9 Normal (applies to non-numeric results) [facility] SGOT(AST) 27 U/L 15-37 Normal (applies to non-numeric resul ts) [facility] Note the following drug interference: Sulfasalazine Sulfapyridine Can see falsely depressed Can see falsely elevated result with up to 10% results with up to 10% decrease in measurement increase in measurement Recommend patients be collected for this test prior to administration of either drug. SGPT(ALT) 46 U/L 12-78 Normal (applies to non-numeric resul ts) [facility] Note the following drug interference: Sulfasalazine Sulfapyridine Can see falsely depressed Can see falsely elevated result with up to 29% results with up to 10% decrease in measurement increase in measurement Recommend patients be collected for this test prior to administration of either drug. Alkaline Phosphatase 110 U/L 38-126 Normal (applies to non-num salome results) [facility] can increase Alkaline Phosp le vels up to 2 times the normal adult value. Normal values for children and adolescents are 2 to 3 times the normal adult value. Total Protein 6.0-8.2 Normal (applies to non-numeric re sults) [facility] Albumin Level 3.4-5.0 Normal (applies to non-numeric re sults) [facility] ID Date Data Source [id number] 05/06/2021 02:01:00 PM EDT [facility] Name Value Range Interpretation Code Description Data Ekta rce(s) Supporting Document(s) White Blood Count 3.5-10.5 Normal (applies to non-numeri c results) [facility] Red Blood Count 3.90-5.00 Normal (applies to non-numeric results) [facility] Hemoglobin 12.0-15.5 Normal (applies to non-numeric resul ts) [facility] Hematocrit 34.9-44.5 Normal (applies to non-numeric resul ts) [facility] Mean Corpuscular Volume 81.2-95.1 Normal (applies to non- numeric results) [facility] Mean Corpuscular Hgb 25.6-32.2 Normal (applies to non-num salome results) [facility] Mean Corpuscular Hgb Conc 32.0-36.0 Normal (applies to no n-numeric results) [facility] Red Cell Distribution Width 11.9-15.5 Normal (appli es to non-numeric results) [facility] Platelet Count 279 x10 3/uL 150-450 Normal (applies to non-numeric results) [facility] Mean Platelet Volume 9.4-12.4 Normal (applies to non-num salome results) [facility] Neutrophils% (Auto) 31.0-71.0 Normal (applies to non-nume yahir results) [facility] Lymphocytes% (Auto) 20.0-55.0 Normal (applies to non-nume yahir results) [facility] Monocytes% (Auto) 4.0-12.0 Normal (applies to non-numeri c results) [facility] Eosinophils% (Auto) 1.0-8.0 Normal (applies to non-nume yahir results) [facility] Basophils% (Auto) 0.0-2.0 Normal (applies to non-numeri c results) [facility] Immature Granulocytes% (Auto) 0.0-2.0 Normal (taiwo lies to non-numeric results) [facility] Neutrophils# (Auto) 1.50-6.20 Normal (applies to non-nume yahir results) [facility] Lymphocytes# (Auto) 1.20-4.00 Normal (applies to non-nume yahir results) [facility] Monocytes# (Auto) 0.00-0.90 Normal (applies to non-numeri c results) [facility] Eosinophils# (Auto) 0.00-0.50 Normal (applies to non-nume yahir results) [facility] Basophils# (Auto) 0.00-0.20 Normal (applies to non-numeri c results) [facility] Immature Granulocytes# (Auto) 0.00-7.00 No rmal (applies to non-numeric results) [facility] ID Date Data Source [id number] 05/06/2021 02:01:00 PM EDT [facility] Name Value Range Interpretation Code Description Data Ekta rce(s) Supporting Document(s) Erythrocyte Sedimentation rate 20 mm/hr 0-20 N ormal (applies to non-numeric results) [facility] ID Date Data Source [id number] 05/06/2021 12:03:00 PM EDT [facility] Imaging Services Department Imaging Report [address] [place] [address] Name: ANGELIA ARTHUR : 1965 Age/Sex: 55F Ordering Provider: [place] Gold [facility] Rec #: [id number] Date of Service: 05/05/21 Report Number: [id number] cc: Valerie Tarango MD; [place] Gold Send Report To: [id number] MAMMOSCR/Screening Digtl Pura w Jim CAD Reason [...] DESCRIPTION: BENIGN. REPORT SIGNATURE ON FILE 05/06/21 [id number] Reported By: Win Restrepo MD <Electronically signed by Patrick Restrepo MD>05/06/21 1203 Dictation Date/Time: 05/05/21 1027 Transcribed Date/Time: 05/06/21 1203 Mobile Mechanic: MACHO Name Value Range Interpretation Code Description Data Ekta rce(s) Supporting Document(s) ID Date Data Source [id number] 05/06/2021 11:00:00 AM [facility] Imaging Services Department Imaging Report [address], [place] [address] %(RAD)RES..[email or web address].print.filter("line") Name: ANGELIA ARTHUR : 1965 Age/Sex: 55F Ordering Provider: [place] Gold Med Rec #: [id number] Reg Status: DEP REF Room #: Date of Service: 05/05/21 Report Number: [id number] cc:Valerie Tarango MD; [place] Gold Send Report To: [id number] US/US Transvaginal Reason for exam: PMB FINDINGS: [...] Date/Time: 05/05/21 0942 Transcribed Date/Time: 05/06/21 1100 Mobile Mechanic: RICARDO Name Value Range Interpretation Code Description Data Ekta rce(s) Supporting Document(s) ID Date Data Source [id number] 05/07/2021 10:06:00 AM [facility] Name Value Range Interpretation Code Description Data Ekta rce(s) Supporting Document(s) FibroTest Score Normal (applies to non-numeric results) [facility] FibroTest Stage Normal (applies to non-numeric results) [facility] FibroTest Interpretation Normal (applies to non -numeric results) [facility] FibroTest estimates liver fibrosis Fibr oTest Score Stage Interpretation 0.00-0.21 F0 no fibrosis 0.21-0.27 F0-F1 no fibrosis 0.27-0.31 F1 minimal fibrosis 0.31-0.48 F1-F2 minimal fibrosis 0.48-0.58 F2 moderate fibrosis 0.58-0.72 F3 advanced fibrosis 0.72-0.74 F3-F4 advanced fibrosis 0.74-1.00 F4 severe fibrosis (Cirrhosis) NashTest 2 Score Normal (applies to non-numeric results) [facility] NashTest 2 Grade Normal (applies to non-numeric results) [facility] NashTest 2 Interpretation Normal (applies to no n-numeric results) [facility] NashTest 2 estimates non-alcoholic steat ohepatitis (KARIMI) NashTest 2 Score Grade Interpretation 0.00-0.25 N0 no KARIMI 0.25-0.50 N1 mild KARIMI 0.50-0.75 N2 moderate KARIMI 0.75-1.00 N3 severe KARIMI SteatoTest 2 Score Normal (applies to non-numer ic results) [facility] SteatoTest 2 Grade Normal (applies to non-numer ic results) [facility] SteatoTest 2 Interpretation Normal (applies to non-numeric results) [facility] RESULT: moderate/severe steatosis (34-10 0%) SteatoTest 2 estimates liver steatosis. A stage of S1 or S2S3 is considered clinically significant. SteatoTest 2 Score Stage Interpretation 0.00-0.40 S0 no steatosis (<5%) 0.40-0.55 S1 mild steatosis (5-33%) 0.55-1.00 S2S3 moderate/severe steatosis (34-100%) KARIMI-FibroTest Comment Normal (applies to non-n umeric results) [facility] The reliability of results is dependent on compliance with the preanalytical and analytical conditions recommended by [facility]. The tests have to be deferred for: [...] developed and its performance characteristics determined by [facility] in a manner consistent with CLIA requirements. This test has not been cleared or approved by the U.S. Food and Drug Administration. [facility] Serial Number [id number] Normal (appli es to non-numeric results) [facility] Apolipoprotein A1,S 135 mg/dL >=140 Very abnormal (applie s to non-numeric units [facility] Yrqov-8-Swfgosrmpyzvp,S 184 mg/dL 100 - 280 Normal ( applies to non-numeric results) [facility] Haptoglobin,S 205 mg/dL 30 - 200 Very abnormal (applies to non-num salome units [facility] Alanine Amino (ALT),S 38 U/L 7-45 Normal (applies to non-nu meric results) [facility] Gamma Glutamyltrans (GGT),S 60 U/L 5 - 36 Very abnormal (applies to non-numeric units [facility] Total Bilirubin,S <=1.2 Normal (applies to non-numeri c results) [facility] Aspartate Aminotrans (AST),S 29 U/L 8 - 43 Nor mal (applies to non-numeric results) [facility] Total Cholesterol,S 226 mg/dL Very abnormal (applies to n on-numeric units [facility] REFERENCE VALUE------ Desirable: < 200 Borderline high: 200 - 239 High: > or = 240 Triglycerides,S 169 mg/dL Very abnormal (applies to non-n umeric units [facility] REFERENCE VALUE------ Normal: <150 Borderline high: 150-199 High: 200-499 Very high: > or =500 Fasting Glucose,Plas 120 mg/dL 70 - 100 Very abnorm al (applies to non-numeric units [facility] Test Performed by: [facility] [id number] Customer Technical Services Manager: Willi Rendon M.D. Ph.D.; CLIA# [id number] Test Performed by: [facility] [address] [place] [address] Customer Technical Services Manager: Willi Rendon M.D. Ph.D.; CLIA# [id number] ID Date Data Source [id number] 05/07/2021 09:50:00 AM EDT [facility] Name Value Range Interpretation Code Description Data Ekta rce(s) Supporting Document(s) FibroTest Score Normal (applies to non-numeric results) [facility] FibroTest Stage Normal (applies to non-numeric results) [facility] FibroTest Interpretation Normal (applies to non -numeric results) [facility] FibroTest estimates liver fibrosis Fibr oTest Score Stage Interpretation 0.00-0.21 F0 no fibrosis 0.21-0.27 F0-F1 no fibrosis 0.27-0.31 F1 minimal fibrosis 0.31-0.48 F1-F2 minimal fibrosis 0.48-0.58 F2 moderate fibrosis 0.58-0.72 F3 advanced fibrosis 0.72-0.74 F3-F4 advanced fibrosis 0.74-1.00 F4 severe fibrosis (Cirrhosis) NashTest 2 Score Normal (applies to non-numeric results) [facility] NashTest 2 Grade Normal (applies to non-numeric results) [facility] NashTest 2 Interpretation Normal (applies to no n-numeric results) [facility] NashTest 2 estimates non-alcoholic steat ohepatitis (KARIMI) NashTest 2 Score Grade Interpretation 0.00-0.25 N0 no KARIMI 0.25-0.50 N1 mild KARIMI 0.50-0.75 N2 moderate KARIMI 0.75-1.00 N3 severe KARIMI SteatoTest 2 Score Normal (applies to non-numer ic results) [facility] SteatoTest 2 Grade Normal (applies to non-numer ic results) [facility] SteatoTest 2 Interpretation Normal (applies to non-numeric results) [facility] RESULT: moderate/severe steatosis (34-10 0%) SteatoTest 2 estimates liver steatosis. A stage of S1 or S2S3 is considered clinically significant. SteatoTest 2 Score Stage Interpretation 0.00-0.40 S0 no steatosis (<5%) 0.40-0.55 S1 mild steatosis (5-33%) 0.55-1.00 S2S3 moderate/severe steatosis (34-100%) KARIMI-FibroTest Comment Normal (applies to non-n umeric results) [facility] The reliability of results is dependent on [...] developed and its performance characteristics determined by [facility] in a manner consistent with CLIA requirements. This test has not been cleared or approved by the U.S. Food and Drug Administration. [facility] Serial Number [id number] Normal (appli es to non-numeric results) [facility] Apolipoprotein A1,S 135 mg/dL >=140 [facility] Ykepu-4-Czxnpyatekblq,S 184 mg/dL 100 - 280 Normal ( applies to non-numeric results) [facility] Haptoglobin,S 205 mg/dL 30 - [address] [facility] Alanine Amino (ALT),S 38 U/L 7-45 Normal (applies to non-nu meric results) [facility] Gamma Glutamyltrans (GGT),S 60 U/L 5 - 36 [facility] Total Bilirubin,S <=1.2 Normal (applies to non-numeri c results) [facility] Aspartate Aminotrans (AST),S 29 U/L 8 - 43 Nor mal (applies to non-numeric results) [facility] Total Cholesterol,S 226 mg/dL [facility] REFERENCE VALUE------ Desirable: < 200 Borderline high: 200 - 239 High: > or = 240 Triglycerides,S 169 mg/dL [facility] REFERENCE VALUE------ Normal: <150 Borderline high: 150-199 High: 200-499 Very high: > or =500 Fasting Glucose,Plas 120 mg/dL 70 - 100 [facility] Test Performed by: [place] [address] Customer Technical Services Manager: Willi Rendon M.D. Ph.D.; CLIA# [id number] Test Performed by: [facility] [address] [place] [address] Customer Technical Services Manager: Willi Rendon M.D. Ph.D.; CLIA# [id number] ID Date Data Source [id number] 05/05/2021 05:00:00 PM EDT [facility] Name Value Range Interpretation Code Description Data Ekta rce(s) Supporting Document(s) Bilirubin,Total 0.1-1.9 Normal (applies to non-numeric results) [facility] Bilirubin,Direct 0.05-0.20 Normal (applies to non-numeric results) [facility] SGOT(AST) 27 U/L 15-37 Normal (applies to non-numeric resul ts) [facility] Note the following drug interference: Sulfasalazine Sulfapyridine Can see falsely depressed Can see falsely elevated result with up to 10% results with up to 10% decrease in measurement increase in measurement Recommend patients be collected for this test prior to administration of either drug. SGPT(ALT) 49 U/L 12-78 Normal (applies to non-numeric resul ts) [facility] Note the following drug interference: Sulfasalazine Sulfapyridine Can see falsely depressed Can see falsely elevated result with up to 29% results with up to 10% decrease in measurement increase in measurement Recommend patients be collected for this test prior to administration of either drug. Alkaline Phosphatase 103 U/L 38-126 Normal (applies to non-num salome results) [facility] can increase Alkaline Phosp le vels up to 2 times the normal adult value. Normal values for children and adolescents are 2 to 3 times the normal adult value. Total Protein 6.0-8.2 Normal (applies to non-numeric re sults) [facility] Albumin Level 3.4-5.0 Normal (applies to non-numeric re sults) [facility] ID Date Data Source [id number] 04/22/2021 05:47:00 PM EDT [facility] Name Value Range Interpretation Code Description Data Ekta rce(s) Supporting Document(s) Iron FE Level 61 ug/dL 37-170 Normal (applies to non-numeric re sults) [facility] Total Iron Binding Capacity 365 ug/dL 265-497 Norm al (applies to non-numeric results) [facility] %Iron Saturation 12.0-55.0 Normal (applies to non-numeric results) [facility] ID Date Data Source [id number] 04/22/2021 03:49:00 PM EDT [facility] Name Value Range Interpretation Code Description Data Ekta rce(s) Supporting Document(s) White Blood Count 4.8-10.8 Above high normal [facility] Red Blood Count 3.68-5.22 Normal (applies to non-numeric results) [facility] Hemoglobin 11.2-15.7 Normal (applies to non-numeric resul ts) [facility] Hematocrit 34.1-44.9 Normal (applies to non-numeric resul ts) [facility] Mean Corpuscular Volume 81-99 Normal (applies to non- numeric results) [facility] Mean Corpuscular Hemoglobin 27.0-33.0 Normal (appli es to non-numeric results) [facility] Mean Corpuscular HGB Conc 32.0-36.0 Normal (applies to no n-numeric results) [facility] Red Cell Distribution Width 11.5-14.5 Normal (appli es to non-numeric results) [facility] Platelet Count 303 X10 3/uL 130-450 Normal (applies to non-numeric results) [facility] Mean Platelet Volume 9.5-12.7 Normal (applies to non-num salome results) [facility] Imm Grans% (AUTO) 1 % 0-2 Normal (applies to non-numeri c results) [facility] Neutrophils % (AUTO) 65 % 40-75 Normal (applies to non-num salome results) [facility] Lymphocytes % (AUTO) 25 % 21-46 Normal (applies to non-num salome results) [facility] Monocytes % (AUTO) 7 % 5-12 Normal (applies to non-numer ic results) [facility] Eosinophils % (AUTO) 2 % 1-5 Normal (applies to non-num salome results) [facility] Basophils % (AUTO) 0 % 0-1 Normal (applies to non-numer ic results) [facility] Imm Grans# (AUTO) 0.0-0.5 Normal (applies to non-numeri c results) [facility] Neutrophils # (AUTO) 1.5-8.1 Normal (applies to non-num salome results) [facility] Lymphocytes # (AUTO) 1.0-3.1 Normal (applies to non-num salome results) [facility] Monocytes # (AUTO) 0.2-1.3 Normal (applies to non-numer ic results) [facility] Eosinophils# (AUTO) 0.0-0.5 Normal (applies to non-nume yahir results) [facility] Basophils # (AUTO) 0.0-0.1 Normal (applies to non-numer ic results) [facility] ID Date Data Source [id number] 04/22/2021 01:15:00 PM EDT [facility] Name Value Range Interpretation Code Description Data Ekta rce(s) Supporting Document(s) Respiratory specimen severe acute respir atory syndrome coronavirus 2 (SARS-CoV-2) RNA Negative (qualifier value) [facility] This lab was ordered by [facility] layne and reported by [facility]. ID Date Data Source [id number] 04/23/2021 01:50:00 AM EDT [facility] COVID-19 Specimen Source NASOPHARYNGEAL Testing was performed using the [employer] SARS-CoV-2 Assay (MugenUp) Methodology: Nucleic Acid Amplification Critical Power Install Technician RT-PCR Mediated Amplification (TMA) and Dual Kinetic [...] following links EUA Fact Sheet for Providers: https://www.fda.gov/media/355937/download EUA Fact Sheet for Patients: https://www.fda.gov/media/817148/download THIS IS A STATE REPORTABLE COMMUNICABLE DISEASE. Test Performed By: [facility] [address] [place] [address] Director: Sandra Zuñiga MD Name Value Range Interpretation Code Description Data Ekta rce(s) Supporting Document(s) ID Date Data Source [id number] 04/24/2021 08:42:00 AM EDT [facility] No Group A beta hemolytic streptococcus at 24 hours. Pre-report pending 48 hour incubation. Name Value Range Interpretation Code Description Data Ekta rce(s) Supporting Document(s) Group A Culture [facility] ID Date Data Source [id number] 04/22/2021 12:46:00 PM EDT [facility] BEAN WEIGHER TEST TO BE ORDERED: PAP and HPV (HR )LAST MENSTRUAL PERIOD 2017SOURCE OF SPECIMEN Endo/ExocxCLINICAL FINDINGS normal examOTHER FINDINGS (free text) cervical polypCLINICAL DIAGNOSIS Screening, low risk (cx) Name Value Range Interpretation Code Description Data Ekta rce(s) Supporting Document(s) Cytology Order BEAN WEIGHER Pap result LAB SendOut No rmal (applies to non-numeric results) [facility] ID Date Data Source [id number] 04/19/2021 02:52:00 AM EDT [facility] Name Value Range Interpretation Code Description Data Ekta rce(s) Supporting Document(s) HPV Detection,High Risk result Negative N ormal (applies to non-numeric results) [facility] Test Performed By: [facility] [address] [place] [address] Director: Sandra Zuñiga MD . No E6 or E7 mRNA is detected from HPV types 16,18,31,33,35,39,45,51,52,56,58,59,66, and 68 by nucleic acid amplification. ID Date Data Source [id number] 04/18/2021 04:38:00 PM EDT [facility] Name Value Range Interpretation Code Description Data Ekta rce(s) Supporting Document(s) HPV Detection,High Risk Types Negative No rmal (applies to non-numeric results) [facility] Test Performed By: [facility] [address] [place] [address] Director: Sandra Zuñiga MD . No E6 or E7 mRNA is detected from HPV types 16,18,31,33,35,39,45,51,52,56,58,59,66, and 68 by nucleic acid amplification. ID Date Data Source [id number] 04/22/2021 12:25:00 PM EDT [facility] <Findings Not Available> Name Value Range Interpretation Code Description Data Ekta rce(s) Supporting Document(s) ID Date Data Source [id number] 04/11/2021 01:23:00 PM EDT [facility] Name: ANGELIA ARTHUR [facility] Rec #: [id number] : 1965 Age/Sex: 55F Date of Service: 04/11/21 DISPOSITION SUMMARY Discharge Summary [facility] Name:Angelia Arthur Emergency Department Age:55 yrs Sex:Female [...] rce(s) Supporting Document(s) ID Date Data Source [id number] [facility] Med Rec #: [id number] : 1965 Age/Sex: 55F Date of Service: 04/11/21 PHYSICIAN CHART Physician Documentation [facility] Name: Angelia Arthur Age: 55 yrs Sex: [...] to communication noted, The patient speaks fluent British. ROS: 14:07 Eyes: Negative for injury, pain, [...] 160.02 cm) MDM: 13:46 Patient medically screened. [facility] 14:08 Data reviewed: vital signs, nurses notes. ED course: EKG [facility] demonstrates normal sinus rhythm without any [...] CRP - Wide Range; Complete Time: 14:47 [facility] 04/11 14:47 Interpretation: Within normal limits: CRP-wr 11.50. [facility] 04/11 13:55 Order name: Cbc With Auto Differential; Complete Time: 14:47jdl 04/11 14:47 Interpretation: WBC 12.7; HGB 13.1; HCT 37.0; PLT 284. [facility] 04/11 13:55 Order name: Comprehensive Metabolic Prof.; Complete Time: jdl 14:47 04/11 13:55 Order name: Lipase; Complete Time: 14:47 j 04/11 13:55 Order name: UA.; Complete Time: 15:32 [facility] 04/11 15:32 Interpretation: Within normal limits: Ur Color Yellow; Ur jdl Clarity Clear; Ur Spec gravity 1.011; Ur PH 6.5; Ur Protein Negative; Ur Glucose Negative; Ur Ketones Negative; Ur Blood Negative; Ur Bilirubin Negative; Ur Urobilinogen 0.2; Ur Leuk Est Negative; Ur Nitrite Negative. 07 13:55 Order name: Troponin I; Complete Time: 14:52 [facility] 04/11 14:52 Interpretation: Within normal limits: TROP I < 0.045. [facility] 04/11 13:55 Order name: Us Gall Bladder Study [facility] 04/11 13:55 Order name: Emergency Room EKG Order - Use EKG Work-Up [facility] /Quick Select; Complete Time: 14:01 04/11 13:55 Order name: Cardiology EKG Interpretation - Choose Reason [facility] for Test 04/11 13:55 Order name: Collect Urine - Clean Catch; Complete Time: jdl 15:25 04/11 13:55 Order name: Iv Saline Lock; Complete Time: 14:29 [facility] 04/11 13:55 Order name: NPO; Complete Time: 14:29 [facility] Dispensed Medications: 14:23 Drug: Protonix 40 [...] solution (0.5 mL)] Route: IVP; Site: [facility] - left; 15:25 Follow up: Response: [...] Route: IV; Rate: per protocol; Site: [facility] - left; 15:57 Follow up: IV [...] rce(s) Supporting Document(s) ID Date Data Source [id number] 04/11/2021 01:23:00 PM EDT [facility] Name: ANGELIA ARTHUR [facility] Rec #: [id number] : 1965 Age/Sex: 55F Date of Service: 04/11/21 NURSE CHART Nurse's Notes [facility] Name: Angelia Arthur Age: 55 yrs Sex: Female : 1965 Arrival Date: 04/11/2021 Time: 13:23 Bed 9 Private MD: Valerie Tarango L Diagnosis: Epigastric pain Inbound Details: Referred by: Urgent Care, [place] Arriving by: Walk-In ETA: Who will see [...] to communication noted, The patient speaks fluent British. Screenin:54 AUDIT 1. How often do you [...] [place], RN is Primary Nurse. meb 13:50 residential monitor on. Pulse on is on. NIBP on. [...] Name Value Range Interpretation Code Description [facility] Supporting Document(s) ID Date Data Source [id number] 04/11/2021 03:31:00 PM EDT [facility] Name Value Range Interpretation Code Description Data [facility](s) Supporting Document(s) Color,Urine Yellow Normal (applies to non-numeric resu lts) [facility] Clarity,Urine Clear Normal (applies to non-numeric re sults) [facility] Specific [place],Urine 1.001-1.030 Normal (applies to non- numeric results) [facility] PH,Urine 5.0-8.0 Normal (applies to non-numeric resul ts) [facility] Protein,Urine Negative Normal (applies to non-numeric re sults) [facility] Glucose,Urine (UA) Negative Normal (applies to non-numer ic results) [facility] Ketones,Urine Negative Normal (applies to non-numeric re sults) [facility] Blood,Urine Negative Normal (applies to non-numeric resu lts) [facility] Bilirubin,Urine Negative Normal (applies to non-numeric results) [facility] Urobilinogen,Urine Norm 0.2-1 Normal (applies to non-numer ic results) [facility] Leukocyte Esterase,Urine Negative Normal (applies to non -numeric results) [facility] Nitrite,Urine Negative Normal (applies to non-numeric re sults) [facility] ID Date Data Source [id number] 04/11/2021 02:48:00 PM EDT [facility] Name Value Range Interpretation Code Description Data Ekta rce(s) Supporting Document(s) Troponin I 0.000-0.045 Normal (applies to non-numeric resu lts) [facility] ID Date Data Source [id number] 04/11/2021 02:43:00 PM EDT [facility] Name Value Range Interpretation Code Description Data Ekta rce(s) Supporting Document(s) C-Reactive Protein,Wide Range <3.00 Above high normal [facility] ID Date Data Source [id number] 04/11/2021 02:43:00 PM EDT [facility] Name Value Range Interpretation Code Description Data Ekta rce(s) Supporting Document(s) Sodium 141 mmol/L 137-145 Normal (applies to non-numeric resul ts) [facility] Potassium 3.5-5.1 Normal (applies to non-numeric resul ts) [facility] Chloride 109 mmol/L 98-112 Normal (applies to non-numeric resul ts) [facility] Carbon Dioxide CO2 22.0-33.0 Normal (applies to non-numer ic results) [facility] Anion Gap 4.0-11.0 Normal (applies to non-numeric resul ts) [facility] BUN 15 mg/dL 7-17 Normal (applies to non-numeric resul ts) [facility] Creatinine 0.70-1.20 Below low normal [facility] GFR >60 Normal (applies to non-numeric results) [facility] Result based on MDRD formula. Glucose Level 75 mg/dL 74-99 Normal (applies to non-numeric re sults) [facility] The reference range is only applicable w hen fasting. Calcium-Uncorrected 8.4-10.2 Normal (applies to non-nume yahir results) [facility] Corrected Calcium 8.4-10.2 Normal (applies to non-numeri c results) [facility] Bilirubin,Total 0.2-1.3 Normal (applies to non-numeric results) [facility] SGOT(AST) 23 U/L 14-36 Normal (applies to non-numeric resul ts) [facility] SGPT(ALT) 46 U/L 9-52 Normal (applies to non-numeric resul ts) [facility] Alkaline Phosphatase 123 U/L 38-126 Normal (applies to non-num salome results) [facility] can increase Alkaline Phosp le vels up to 2 times the normal adult value. Normal values for children and adolescents are 2 to 3 times the normal adult value. Total Protein 6.3-8.2 Normal (applies to non-numeric re sults) [facility] Albumin 3.5-5.0 Normal (applies to non-numeric resul ts) [facility] ID Date Data Source [id number] 04/11/2021 02:43:00 PM EDT [facility] Name Value Range Interpretation Code Description Data Ekta rce(s) Supporting Document(s) Lipase 111 U/L 73-393 Normal (applies to non-numeric resul ts) [facility] ID Date Data Source [id number] 04/11/2021 02:31:00 PM EDT [facility] Name Value Range Interpretation Code Description Data Ekta rce(s) Supporting Document(s) White Blood Count 4.8-10.8 Above high normal [facility] Red Blood Count 3.68-5.22 Normal (applies to non-numeric results) [facility] Hemoglobin 11.2-15.7 Normal (applies to non-numeric resul ts) [facility] Hematocrit 34.1-44.9 Normal (applies to non-numeric resul ts) [facility] Mean Corpuscular Volume 81-99 Normal (applies to non- numeric results) [facility] Mean Corpuscular Hemoglobin 27.0-33.0 Normal (appli es to non-numeric results) [facility] Mean Corpuscular HGB Conc 32.0-36.0 Normal (applies to no n-numeric results) [facility] Red Cell Distribution Width 11.5-14.5 Normal (appli es to non-numeric results) [facility] Platelet Count 284 X10 3/uL 130-450 Normal (applies to non-numeric results) [facility] Mean Platelet Volume 9.5-12.7 Normal (applies to non-num salome results) [facility] Imm Grans% (AUTO) 1 % 0-2 Normal (applies to non-numeri c results) [facility] Neutrophils % (AUTO) 60 % 40-75 Normal (applies to non-num salome results) [facility] Lymphocytes % (AUTO) 30 % 21-46 Normal (applies to non-num salome results) [facility] Monocytes % (AUTO) 8 % 5-12 Normal (applies to non-numer ic results) [facility] Eosinophils % (AUTO) 1 % 1-5 Normal (applies to non-num salome results) [facility] Basophils % (AUTO) 0 % 0-1 Normal (applies to non-numer ic results) [facility] Imm Grans# (AUTO) 0.0-0.5 Normal (applies to non-numeri c results) [facility] Neutrophils # (AUTO) 1.5-8.1 Normal (applies to non-num salome results) [facility] Lymphocytes # (AUTO) 1.0-3.1 Above high normal [facility] Monocytes # (AUTO) 0.2-1.3 Normal (applies to non-numer ic results) [facility] Eosinophils# (AUTO) 0.0-0.5 Normal (applies to non-nume yahir results) [facility] Basophils # (AUTO) 0.0-0.1 Normal (applies to non-numer ic results) [facility] ID Date Data Source [id number] 04/16/2021 07:28:00 PM EDT [facility] Name: ANGELIA ARTHUR : 1965 Age/Sex: 55F Ordering Provider: Eros Oakley MD Med Rec #: [id number] Reg Status:DEP ER Room #: Date of Service: 04/11/21 Report Number: [id number] cc: Valerie Tarango MD; Eros Oakley MD Send Report To: Reason for exam: ABDOMINAL PAIN SINUS RHYTHM NORMAL ECG Physician Ghost Writer: Dr. Wei Castillo M.D. ECG HEART RATE: 85 /min ECG RR INTERVAL: 702 ms ECG P DURATION: 113 ms ECG QRS DURATION: 86 ms ECG LA INTERVAL: 162 ms ECG QT INTERVAL: 354 ms ECG QTC INTERVAL: 397 ms Q-T dispersion: ms ECG P AXIS: 45 deg ECG QRS AXIS: 46 deg ECG T AXIS: 51 deg REPORT SIGNATURE ON FILE 04/16/211927 Reported By: Wei Castillo MD <<Signature on File>> Exam Date/Time: 04/11/21 1400 Order #: [id number] Dictation Date/Time: 04/16/211927 Transcribed Date/Time: 04/16/211927 Mobile Mechanic: [employer] Name Value Range Interpretation Code Description Data Ekta rce(s) Supporting Document(s) ID Date Data Source [id number] 04/13/2021 05:34:00 AM EDT [facility] Name: ANGELIA ARTHUR : 1965 Age/Sex: 55F Ordering Provider: Eros Oakley MD Med Rec #: [id number] Reg Status: DEP ER Room #: Date of Service: 04/11/21 Report Number: [id number] cc:Valerie Tarango MD; Eros Oakley MD Send Report To: [id number] US/US Gall Bladder Study Reason for exam: [...] Date/Time: 04/11/21 1448 Transcribed Date/Time: 04/13/21 0534 Mobile Mechanic: DANIEL Name Value Range Interpretation Code Description Data Ekta rce(s) Supporting Document(s) ID Date Data Source [id number] 03/28/2021 07:53:00 PM EDT [facility] Name Value Range Interpretation Code Description Data Ekta rce(s) Supporting Document(s) CRP,Wide Range result <3.00 [facility] Test Performed By: [facility] [address] [place] [address] Director: Sandra Zuñiga MD ID Date Data Source [id number] 03/28/2021 05:35:00 PM EDT [facility] Name Value Range Interpretation Code Description Data Ekta rce(s) Supporting Document(s) C-Reactive Protein,Wide Range <3.00 Above high normal [facility] Test Performed By: [facility] [address] [place] [address] Director: Sandra Zuñiga MD ID Date Data Source [id number] 03/28/2021 02:27:00 PM EDT [facility] Name Value Range Interpretation Code Description Data Ekta rce(s) Supporting Document(s) Sodium 141 mmol/L 136-145 Normal (applies to non-numeric resul ts) [facility] Potassium 3.5-5.1 Normal (applies to non-numeric resul ts) [facility] Chloride 104 mmol/L 98-107 Normal (applies to non-numeric resul ts) [facility] Carbon Dioxide CO2 21-32 Normal (applies to non-numer ic results) [facility] Anion Gap 5.0-16.0 Normal (applies to non-numeric resul ts) [facility] BUN 18 mg/dL 7-18 Normal (applies to non-numeric results) [facility] Creatinine,Serum 0.7-1.2 Below low normal [facility] GFR >60 Normal (applies to non-numeric results) [facility] Glucose Level 87 mg/dL 60-99 Normal (applies to non-numeric re sults) [facility] Reference range is only applicable when patient is fasting Note the following drug interference: Sulfasalazine Sulfapyridine Can see falsely depressed Can see falsely elevated result with up to 17% results with up to 11% decrease in measurement increase in measurement Recommend patients be collected for this test prior to administration of either drug. Calcium 8.5-10.1 Normal (applies to non-numeric resul ts) [facility] Bilirubin,Total 0.1-1.9 Normal (applies to non-numeric results) [facility] SGOT(AST) 30 U/L 15-37 Normal (applies to non-numeric resul ts) [facility] Note the following drug interference: Sulfasalazine Sulfapyridine Can see falsely depressed Can see falsely elevated result with up to 10% results with up to 10% decrease in measurement increase in measurement Recommend patients be collected for this test prior to administration of either drug. SGPT(ALT) 52 U/L 12-78 Normal (applies to non-numeric resul ts) [facility] Note the following drug interference: Sulfasalazine Sulfapyridine Can see falsely depressed Can see falsely elevated result with up to 29% results with up to 10% decrease in measurement increase in measurement Recommend patients be collected for this test prior to administration of either drug. Alkaline Phosphatase 118 U/L 38-126 Normal (applies to non-num salome results) [facility] can increase Alkaline Phosp le vels up to 2 times the normal adult value. Normal values for children and adolescents are 2 to 3 times the normal adult value. Total Protein 6.0-8.2 Normal (applies to non-numeric re sults) [facility] Albumin Level 3.4-5.0 Normal (applies to non-numeric re sults) [facility] ID Date Data Source [id number] 03/28/2021 02:05:00 PM EDT [facility] Name Value Range Interpretation Code Description Data Ekta rce(s) Supporting Document(s) White Blood Count 3.5-10.5 Normal (applies to non-numeri c results) [facility] Red Blood Count 3.90-5.00 Normal (applies to non-numeric results) [facility] Hemoglobin 12.0-15.5 Normal (applies to non-numeric resul ts) [facility] Hematocrit 34.9-44.5 Normal (applies to non-numeric resul ts) [facility] Mean Corpuscular Volume 81.2-95.1 Normal (applies to non- numeric results) [facility] Mean Corpuscular Hgb 25.6-32.2 Normal (applies to non-num salome results) [facility] Mean Corpuscular Hgb Conc 32.0-36.0 Normal (applies to no n-numeric results) [facility] Red Cell Distribution Width 11.9-15.5 Normal (appli es to non-numeric results) [facility] Platelet Count 289 x10 3/uL 150-450 Normal (applies to non-numeric results) [facility] Mean Platelet Volume 9.4-12.4 Normal (applies to non-num salome results) [facility] Neutrophils% (Auto) 31.0-71.0 Normal (applies to non-nume yahir results) [facility] Lymphocytes% (Auto) 20.0-55.0 Normal (applies to non-nume yahir results) [facility] Monocytes% (Auto) 4.0-12.0 Normal (applies to non-numeri c results) [facility] Eosinophils% (Auto) 1.0-8.0 Normal (applies to non-nume yahir results) [facility] Basophils% (Auto) 0.0-2.0 Normal (applies to non-numeri c results) [facility] Immature Granulocytes% (Auto) 0.0-2.0 Normal (taiwo lies to non-numeric results) [facility] Neutrophils# (Auto) 1.50-6.20 Normal (applies to non-nume yahir results) [facility] Lymphocytes# (Auto) 1.20-4.00 Normal (applies to non-nume yahir results) [facility] Monocytes# (Auto) 0.00-0.90 Normal (applies to non-numeri c results) [facility] Eosinophils# (Auto) 0.00-0.50 Normal (applies to non-nume yahir results) [facility] Basophils# (Auto) 0.00-0.20 Normal (applies to non-numeri c results) [facility] Immature Granulocytes# (Auto) 0.00-7.00 No rmal (applies to non-numeric results) [facility] ID Date Data Source [id number] 03/28/2021 02:05:00 PM EDT [facility] Name Value Range Interpretation Code Description Data Ekta rce(s) Supporting Document(s) Erythrocyte Sedimentation rate 20 mm/hr 0-20 N ormal (applies to non-numeric results) [facility] ID Date Data Source [id number] 03/26/2021 09:32:00 AM EDT [facility] Procedure Performed By: [facility] [address] [place] [address] Director: Asuncion Zuñiga MD Mixed kirill: Mixed kirill, probable contamination. Name Value Range Interpretation Code Description Data [facility] rce(s) Supporting Document(s) ID Date Data Source [id number] 03/26/2021 09:28:00 AM EDT [facility] Procedure Performed By: [facility] [address] [place] [address] Director: Asuncion Zuñiga MD Name Value Range Interpretation Code Description Data [facility] rce(s) Supporting Document(s) Urine Culture Normal (applies to non-numeric re sults) [facility] ID Date Data Source [id number] 03/25/2021 09:22:00 AM EDT [facility] Name Value Range Interpretation Code Description Data [facility] rce(s) Supporting Document(s) Color,Urine Colorl-Dk Y Normal (applies to non-numeric res ults) [facility] Clarity,Urine Clear Normal (applies to non-numeric re sults) [facility] Specific [place],Urine 1.005-1.030 Normal (applies to non- numeric results) [facility] pH,Urine 5.0-8.0 Normal (applies to non-numeric resul ts) [facility] Protein,Urine Negative Normal (applies to non-numeric re sults) [facility] Glucose,Urine Negative Normal (applies to non-numeric re sults) [facility] Ketones,Urine Negative Normal (applies to non-numeric re sults) [facility] Blood,Urine Negative [facility] Bilirubin,Urine Negative Normal (applies to non-numeric results) [facility] Urobilinogen,Urine 0.2-1.0 Normal (applies to non-numer ic results) [facility] Leukocyte Esterase,Urine Negative Normal (applies to non -numeric results) [facility] Nitrite,Urine Negative Normal (applies to non-numeric re sults) [facility] RBC,Urine None Seen [facility] WBC,Urine None Seen [facility] Casts,Urine None Seen Normal (applies to non-numeric resu lts) [facility] Squamous Cells,Urine None Seen [facility] Bacteria,Urine None Seen [facility] ital Mucus,Urine None Seen [facility] l ID Date Data Source [id number] 03/07/2021 11:01:00 AM EDT [facility] Name: ANGELIA ARTHUR [facility] Rec #: [id number] : 1965 Age/Sex: 55F Date of Service: 03/07/21 PHYSICIAN CHART Physician Documentation [facility] Name: Angelia Arthur Age: 55 yrs Sex: [...] months, she is not currently on anticoagulation.. 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 ROS: 11:34 Cardiovascular: Positive for palpitations. Respiratory: [...] CXR - Lauro FITZPATRICK Michael // Radiologist [facility] mmo - 03/07/2021 11:59:50 AM No acute [...] and she did receive 4 mg of Media here in the emergency department. She stated [...] is 98 beats/min. Rhythm is regular. QRS [place] is mmo Normal. LA interval is normal at 153 msec. QRS [...] - Discharge Summary Sheet mmo - Palpitations, [id number] mmo Forms: - Medication Reconciliation mmo Signatures: Dispatcher [employer] Paco Isidro, RN RN edv Roosevelt Ritchie DO DO rc3 Angelia Bucio NA NA jmg Paige, Rachel, RN RN rp1 Galina Dinh PA PA mmo Name Value Range Interpretation Code Description Data Ekta rce(s) Supporting Document(s) ID Date Data Source [id number] 03/07/2021 11:01:00 AM EDT [facility] Name: PAULANGELIA [facility] Rec #: [id number] : 1965 Age/Sex: 55F Date of Service: 03/07/21 DISPOSITION SUMMARY Discharge Summary [facility] Name:Angelia Arthur Emergency Department Age:55 yrs Sex:Female [...] (PF) Discharge Instruction: Discharge Summary Sheet, Palpitations, [id number], Medication Reconciliation Name Value Range Interpretation Code Description Data Ekta rce(s) Supporting Document(s) ID Date Data Source [id number] 03/07/2021 11:01:00 AM EDT [facility] Name: ANGELIA ARTHUR Med Rec #: [id number] : 1965 Age/Sex: 55F Date of Service: 03/07/21 NURSE CHART Nurse's Notes [facility] Name: Angelia Arthur Age: 55 yrs Sex: [...] SIRS or Sepsis criteria is not present. 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 Screenin:42 AUDIT 1. How often do you [...] NA jmg Paige, Rachel, RN RN rp1 [place] Jew[place] PA PA mmo Abimbola Lanier cc4 Name Value Range Interpretation Code Description Data Ekta rce(s) Supporting Document(s) ID Date Data Source [id number] 03/12/2021 02:02:00 PM EDT [facility] Name Value Range Interpretation Code Description Data Ekta rce(s) Supporting Document(s) Blood Culture-Venous [facility] ID Date Data Source [id number] 03/12/2021 02:02:00 PM EDT [facility] Name Value Range Interpretation Code Description Data Ekta rce(s) Supporting Document(s) Blood Culture-Venous [facility] ID Date Data Source [id number] 03/07/2021 02:12:00 PM EDT [facility] 3 hour post Lactic if elevated? Y Name Value Range Interpretation Code Description Data Ekta rce(s) Supporting Document(s) Lactic Acid 0.4-2.0 Normal (applies to non-numeric resu lts) [facility] ID Date Data Source [id number] 03/07/2021 01:43:00 PM EDT [facility] Name Value Range Interpretation Code Description Data Ekta rce(s) Supporting Document(s) Sodium 141 mmol/L 137-145 Normal (applies to non-numeric resul ts) [facility] Potassium 3.5-5.1 Normal (applies to non-numeric resul ts) [facility] Chloride 107 mmol/L 98-112 Normal (applies to non-numeric resul ts) [facility] Carbon Dioxide CO2 22.0-33.0 Normal (applies to non-numer ic results) [facility] Anion Gap 4.0-11.0 Below low normal [facility] BUN 14 mg/dL 7-17 Normal (applies to non-numeric resul ts) [facility] Creatinine 0.70-1.20 Below low normal [facility] GFR >60 Normal (applies to non-numeric results) [facility] Result based on MDRD formula. Glucose Level 93 mg/dL 74-99 Normal (applies to non-numeric re sults) [facility] The reference range is only applicable w hen fasting. Calcium-Uncorrected 8.4-10.2 Normal (applies to non-nume yahir results) [facility] Corrected Calcium 8.4-10.2 Normal (applies to non-numeri c results) [facility] Bilirubin,Total 0.2-1.3 Normal (applies to non-numeric results) [facility] SGOT(AST) 22 U/L 14-36 Normal (applies to non-numeric resul ts) [facility] SGPT(ALT) 43 U/L 9-52 Normal (applies to non-numeric resul ts) [facility] Alkaline Phosphatase 119 U/L 38-126 Normal (applies to non-num salome results) [facility] can increase Alkaline Phosp le vels up to 2 times the normal adult value. Normal values for children and adolescents are 2 to 3 times the normal adult value. Total Protein 6.3-8.2 Normal (applies to non-numeric re sults) [facility] Albumin 3.5-5.0 Normal (applies to non-numeric resul ts) [facility] ID Date Data Source [id number] 03/07/2021 01:44:00 PM EDT [facility] Name Value Range Interpretation Code Description Data Ekta rce(s) Supporting Document(s) Magnesium 1.80-2.40 Normal (applies to non-numeric resul ts) [facility] ID Date Data Source [id number] 03/07/2021 01:44:00 PM EDT [facility] Value Range Interpretation Code Description Data Ekta rce(s) Supporting Document(s) Lipase 102 U/L 73-393 Normal (applies to non-numeric resul ts) [facility] ID Date Data Source [id number] 03/07/2021 01:44:00 PM EDT [facility] Value Range Interpretation Code Description Data Ekta rce(s) Supporting Document(s) Free T4 (Free Thyroxine) 0.76-1.46 Normal (applies to non -numeric results) [facility] ID Date Data Source [id number] 03/07/2021 01:44:00 PM EDT [facility] Value Range Interpretation Code Description Data Ekta rce(s) Supporting Document(s) Thyroid Stimulate Hormone TSH 0.358-3.740 No rmal (applies to non-numeric results) [facility] ID Date Data Source [id number] 03/07/2021 01:19:00 PM EDT [facility] Value Range Interpretation Code Description Data Ekta rce(s) Supporting Document(s) Troponin I 0.000-0.045 Normal (applies to non-numeric resu lts) [facility] ID Date Data Source [id number] 03/07/2021 01:12:00 PM EDT [facility] Value Range Interpretation Code Description Data Ekta rce(s) Supporting Document(s) D-Dimer Quant 444 ng/mLFEU <500 Normal (applies to non-numeric results) [facility] Negative for D-Dimer. This test has f ull FDA exclusion claim at a Negative cutoff value of 500 ng/mL FEU. When the d-dimer value is used in conjunction with the clinical pretest probability (PTP) assessment model to exclude DVT and PE, results less than 500 ng/mL are negative for DVT/PE. ID Date Data Source [id number] 03/07/2021 01:04:00 PM EDT [facility] Name Value Range Interpretation Code Description Data Ekta rce(s) Supporting Document(s) White Blood Count 4.8-10.8 Above high normal [facility] Red Blood Count 3.68-5.22 Normal (applies to non-numeric results) [facility] Hemoglobin 11.2-15.7 Normal (applies to non-numeric resul ts) [facility] Hematocrit 34.1-44.9 Normal (applies to non-numeric resul ts) [facility] Mean Corpuscular Volume 81-99 Normal (applies to non- numeric results) [facility] Mean Corpuscular Hemoglobin 27.0-33.0 Normal (appli es to non-numeric results) [facility] Mean Corpuscular HGB Conc 32.0-36.0 Normal (applies to no n-numeric results) [facility] Red Cell Distribution Width 11.5-14.5 Above high normal [facility] Platelet Count 299 X10 3/uL 130-450 Normal (applies to non-numeric results) [facility] Mean Platelet Volume 9.5-12.7 Normal (applies to non-num salome results) [facility] Imm Grans% (AUTO) 1 % 0-2 Normal (applies to non-numeri c results) [facility] Neutrophils % (AUTO) 60 % 40-75 Normal (applies to non-num salome results) [facility] Lymphocytes % (AUTO) 29 % 21-46 Normal (applies to non-num salome results) [facility] Monocytes % (AUTO) 8 % 5-12 Normal (applies to non-numer ic results) [facility] Eosinophils % (AUTO) 3 % 1-5 Normal (applies to non-num salome results) [facility] Basophils % (AUTO) 1 % 0-1 Normal (applies to non-numer ic results) [facility] Imm Grans# (AUTO) 0.0-0.5 Normal (applies to non-numeri c results) [facility] Neutrophils # (AUTO) 1.5-8.1 Normal (applies to non-num salome results) [facility] Lymphocytes # (AUTO) 1.0-3.1 Above high normal [facility] Monocytes # (AUTO) 0.2-1.3 Normal (applies to non-numer ic results) [facility] Eosinophils# (AUTO) 0.0-0.5 Normal (applies to non-nume yahir results) [facility] Basophils # (AUTO) 0.0-0.1 Normal (applies to non-numer ic results) [facility] ID Date Data Source [id number] 03/07/2021 12:01:00 PM EDT [facility] Name Value Range Interpretation Code Description Data Ekta rce(s) Supporting Document(s) Respiratory specimen severe acute respir atory syndrome coronavirus 2 (SARS-CoV-2) RNA Negative (qualifier value) [facility] This lab was ordered by [facility] Sony tillman and reported by [facility]. ID Date Data Source [id number] 03/07/2021 05:30:00 PM EDT [facility] Performed by: [employer] [facility] Present ? YCOVID [...] Certificate of Accreditation. Factsheets for healthcare providers: https://www.fda.gov/media/548728/download Factsheets for patients: https://www.fda.gov/media/270243/download The ID NOW Instrument is a rapid molecular in vitro diagnostic test utilizing an isothermal nucleic acid amplification technology intended for the qualitative detection of nucleic acid from the SARS-CoV-2 viral RNA. THIS IS A STATE REPORTABLE COMMUNICABLE DISEASE. Manual entry verified by Kim Bah 03/07/21 1729 Test Performed By: [facility] [address] [place] [address] Director: Sandra Zuñiga MD Name Value Range Interpretation Code Description Data Ekta rce(s) Supporting Document(s) ID Date Data Source [id number] 03/08/2021 02:17:00 PM EDT [facility] Name: ANGELIA ARTHUR : 1965 Age/Sex: 55F Ordering Provider: NGUYEN Abbott Med Rec #: [id number] Reg Status: [facility] Room #: Date of Service: 03/07/21 Report Number: [id number] cc:Valerie Tarango MD Send Report To: [id number] XRP/XR Chest Xray Portable Reason for exam: [...] Date/Time: 03/07/21 1236 Transcribed Date/Time: 03/08/21 1417 Mobile Mechanic: CAMPOS Name Value Range Interpretation Code Description Data Ekta rce(s) Supporting Document(s) ID Date Data Source [id number] 03/07/2021 12:04:00 PM EDT [facility] Name Value Range Interpretation Code Description Data Ekta rce(s) Supporting Document(s) Color,Urine Yellow Normal (applies to non-numeric resu lts) [facility] Clarity,Urine Clear Normal (applies to non-numeric re sults) [facility] Specific [place],Urine 1.001-1.030 Normal (applies to non- numeric results) [facility] PH,Urine 5.0-8.0 Normal (applies to non-numeric resul ts) [facility] Protein,Urine Negative Normal (applies to non-numeric re sults) [facility] Glucose,Urine (UA) Negative Normal (applies to non-numer ic results) [facility] Ketones,Urine Negative Normal (applies to non-numeric re sults) [facility] Blood,Urine Negative Normal (applies to non-numeric resu lts) [facility] Bilirubin,Urine Negative Normal (applies to non-numeric results) [facility] Urobilinogen,Urine Norm 0.2-1 Normal (applies to non-numer ic results) [facility] Leukocyte Esterase,Urine Negative Normal (applies to non -numeric results) [facility] Nitrite,Urine Negative Normal (applies to non-numeric re sults) [facility] ID Date Data Source [id number] 03/08/2021 09:46:00 AM EDT [facility] Hospital Name: ANGELIA ARTHUR : 1965 Age/Sex: 55F Ordering Provider: Roosevelt Ritchie DO Med Rec #: [id number] Reg Status:[facility] ER Room #: Date of Service: 03/07/21 Report Number: [id number] cc: Valerie Tarango MD; Roosevelt Ritchie DO Send Report To: Reason for exam: Chest Pain SINUS RHYTHM NORMAL ECG WARNING: DATA QUALITY MAY AFFECT INTERPRETATION 01/10/21 no sign change Physician Ghost Writer: Jose Fountain M.D. ECG HEART RATE: 98 /min ECG RR INTERVAL: 607 ms ECG P DURA TION: 110 ms ECG QRS DURATION: 82 ms ECG LA INTERVAL: 153 ms ECG QT INTERVAL: 324 ms ECG QTC INTERVAL: 390 ms Q-T dispersion: ms ECG P AXIS: 54 deg ECG QRS AXIS: 62 deg ECG T AXIS: 69 deg REPORT SIGNATURE ON FILE 03/08/21945 Reported By: Jose Fountain MD, [facility] <<Signature on File>> Exam Date/Time: 03/07/21 1122 Order #: [id number] Dictation Date/Time: 03/08/21945 Transcribed Date/Time: 03/08/21945 Mobile Mechanic: VALDO Name Value Range Interpretation Code Description Data Ekta rce(s) Supporting Document(s) ID Date Data Source [id number] 03/05/2021 09:06:00 AM EDT [facility] Procedure Performed By: [facility] [address] [place] [address] Director: Asuncion Zuñiga MD . QUANTITY: >100,000/mL {ESCHERICHIA COLI} ESCHERICHIA COLISCT Name Value Range Interpretation Code Description Data Ekta rce(s) Supporting Document(s) ID Date Data Source [id number] 03/05/2021 09:06:00 AM EDT [facility] Procedure Performed By: [facility] [address] [place] [address] Director: Asuncion Zuñiga MD . QUANTITY: >100,000/mL {ESCHERICHIA COLI} ESCHERICHIA COLISCT Name Value Range Interpretation Code Description Data [facility] rce(s) Supporting Document(s) Ampicillin Susceptible. Indicates for microbiol ogy susceptibilities only. [facility] Cefazolin Susceptible. Indicates for microbiol ogy susceptibilities only. [facility] Cefepime Susceptible. Indicates for microbiol ogy susceptibilities only. [facility] ESBL - [facility] Ceftazadime Susceptible. Indicates for m icrobiology susceptibilities only. [facility] Ceftriaxone Susceptible. Indicates for m icrobiology susceptibilities only. [facility] Ciprofloxacin Susceptible. Ind icates for microbiology susceptibilities only. [facility] Ertapenem Susceptible. Indicates for microbiol ogy susceptibilities only. [facility] Gentamicin Susceptible. Indicates for microbiol ogy susceptibilities only. [facility] Levofloxacin Susceptible. Indicates for m icrobiology susceptibilities only. [facility] Nitrofurantoin Susceptible. Ind icates for microbiology susceptibilities only. [facility] Pipercillin/Tazobactam Susceptib le. Indicates for microbiology susceptibilities only. [facility] Trimeth/Sulfamethoxazole Suscept ible. Indicates for microbiology susceptibilities only. [facility] ID Date Data Source [id number] 03/05/2021 08:51:00 AM EDT [facility] Procedure Performed By: [facility] [address] [place] [address] Director: Asuncion Zuñiga MD . Name Value Range Interpretation Code Description Data [facility] rce(s) Supporting Document(s) Urine Culture [facility] ospital ID Date Data Source [id number] 03/05/2021 08:51:00 AM EDT [facility] Procedure Performed By: [facility] [address] [place] [address] Director: Asuncion Zuñiga MD . Name Value Range Interpretation Code Description Data Ekta rce(s) Supporting Document(s) Ampicillin Susceptible. Indicates for microbiol ogy susceptibilities only. [facility] Cefazolin Susceptible. Indicates for microbiol ogy susceptibilities only. [facility] Cefepime Susceptible. Indicates for microbiol ogy susceptibilities only. [facility] Ceftazadime Susceptible. Indicates for m icrobiology susceptibilities only. [facility] Ceftriaxone Susceptible. Indicates for m icrobiology susceptibilities only. [facility] Ciprofloxacin Susceptible. Ind icates for microbiology susceptibilities only. [facility] Ertapenem Susceptible. Indicates for microbiol ogy susceptibilities only. [facility] Gentamicin Susceptible. Indicates for microbiol ogy susceptibilities only. [facility] Levofloxacin Susceptible. Indicates for m icrobiology susceptibilities only. [facility] Nitrofurantoin Susceptible. Ind icates for microbiology susceptibilities only. [facility] Pipercillin/Tazobactam Susceptib le. Indicates for microbiology susceptibilities only. [facility] Trimeth/Sulfamethoxazole Suscept ible. Indicates for microbiology susceptibilities only. [facility] ID Date Data Source [id number] 03/03/2021 11:00:00 AM EDT [facility] Name Value Range Interpretation Code Description Data Ekta rce(s) Supporting Document(s) Color,Urine Colorl-Dk Y Normal (applies to non-numeric res ults) [facility] Clarity,Urine Clear Normal (applies to non-numeric re sults) [facility] Specific [place],Urine 1.005-1.030 Normal (applies to non- numeric results) [facility] pH,Urine 5.0-8.0 Normal (applies to non-numeric resul ts) [facility] Protein,Urine Negative Normal (applies to non-numeric re sults) [facility] Glucose,Urine Negative Normal (applies to non-numeric re sults) [facility] Ketones,Urine Negative Normal (applies to non-numeric re sults) [facility] Blood,Urine Negative Normal (applies to non-numeric resu lts) [facility] Bilirubin,Urine Negative Normal (applies to non-numeric results) [facility] Urobilinogen,Urine 0.2-1.0 Normal (applies to non-numer ic results) [facility] Leukocyte Esterase,Urine Negative Normal (applies to non -numeric results) [facility] Nitrite,Urine Negative Normal (applies to non-numeric re sults) [facility] RBC,Urine None Seen Normal (applies to non-numeric resul ts) [facility] WBC,Urine None Seen [place] [facility] Casts,Urine None Seen Normal (applies to non-numeric resu lts) [facility] Squamous Cells,Urine None Seen [facility] Bacteria,Urine None Seen [facility] ital ID Date Data Source -[id number] 02/11/2021 09:40:00 AM EDT [facility] Name Value Range Interpretation Code Description Data Ekta rce(s) Supporting Document(s) FibroTest Score Normal (applies to non-numeric results) [facility] FibroTest Stage Normal (applies to non-numeric results) [facility] FibroTest Interpretation Normal (applies to non -numeric results) [facility] FibroTest estimates liver fibrosis Fibr oTest Score Stage Interpretation 0.00-0.21 F0 no fibrosis 0.21-0.27 F0-F1 no fibrosis 0.27-0.31 F1 minimal fibrosis 0.31-0.48 F1-F2 minimal fibrosis 0.48-0.58 F2 moderate fibrosis 0.58-0.72 F3 advanced fibrosis 0.72-0.74 F3-F4 advanced fibrosis 0.74-1.00 F4 severe fibrosis (Cirrhosis) NashTest 2 Score Normal (applies to non-numeric results) [facility] NashTest 2 Grade Normal (applies to non-numeric results) [facility] NashTest 2 Interpretation Normal (applies to no n-numeric results) [facility] NashTest 2 estimates non-alcoholic steat ohepatitis (KARIMI) NashTest 2 Score Grade Interpretation 0.00-0.25 N0 no KARIMI 0.25-0.50 N1 mild KARIMI 0.50-0.75 N2 moderate KARIMI 0.75-1.00 N3 severe KARIMI SteatoTest 2 Score Normal (applies to non-numer ic results) [facility] SteatoTest 2 Grade Normal (applies to non-numer ic results) [facility] SteatoTest 2 Interpretation Normal (applies to non-numeric results) [facility] RESULT: moderate/severe steatosis (34-10 0%) SteatoTest 2 estimates liver steatosis. A stage of S1 or S2S3 is considered clinically significant. SteatoTest 2 Score Stage Interpretation 0.00-0.40 S0 no steatosis (<5%) 0.40-0.55 S1 mild steatosis (5-33%) 0.55-1.00 S2S3 moderate/severe steatosis (34-100%) KARIMI-FibroTest Comment Normal (applies to non-n umeric results) [facility] The reliability of results is dependent on compliance with the preanalytical and analytical conditions recommended by [employer]. The tests have to be deferred for: [...] developed and its performance characteristics determined by [facility] in a manner consistent with CLIA requirements. This test has not been cleared or approved by the U.S. Food and Drug Administration. [facility] [id number] Normal (appli es to non-numeric results) [facility] Apolipoprotein A1,S 143 mg/dL >=140 Normal (applies to non-nume yahir results) [facility] Cwbzp-4-Sxkvlszfpkjru,S 171 mg/dL 100 - 280 Normal ( applies to non-numeric results) [facility] Haptoglobin,S 200 mg/dL 30 - 200 Normal (applies to non-numeric re sults) [facility] Alanine Amino (ALT),S 37 U/L 7-45 Normal (applies to non-nu meric results) [facility] Gamma Glutamyltrans (GGT),S 46 U/L 5 - 36 Very abnormal (applies to non-numeric units [facility] Total Bilirubin,S <=1.2 Normal (applies to non-numeri c results) [facility] Aspartate Aminotrans (AST),S 26 U/L 8 - 43 Nor mal (applies to non-numeric results) [facility] Total Cholesterol,S 201 mg/dL Very abnormal (applies to n on-numeric units [facility] REFERENCE VALUE------ Desirable: < 200 Borderline high: 200 - 239 High: > or = 240 Triglycerides,S 197 mg/dL Very abnormal (applies to non-n umeric units [facility] REFERENCE VALUE------ Normal: <150 Borderline high: 150-199 High: 200-499 Very high: > or =500 Fasting Glucose,Plas 92 mg/dL 70 - 100 Normal (applies to n on-numeric results) [facility] Test Performed by: [facility] [address] [place] [address] Customer Technical Services Manager: Willi Rendon M.D. Ph.D.; CLIA# [id number] Test Performed by: [facility] [address] [place] [address] Customer Technical Services Manager: Willi Rendon M.D. Ph.D.; CLIA# [id number] ID Date Data Source [id number] 02/11/2021 08:51:00 AM EDT [facility] Name Value Range Interpretation Code Description Data Ekta rce(s) Supporting Document(s) FibroTest Score Normal (applies to non-numeric results) [facility] FibroTest Stage Normal (applies to non-numeric results) [facility] FibroTest Interpretation Normal (applies to non -numeric results) [facility] FibroTest estimates liver fibrosis Fibr oTest Score Stage Interpretation 0.00-0.21 F0 no fibrosis 0.21-0.27 F0-F1 no fibrosis 0.27-0.31 F1 minimal fibrosis 0.31-0.48 F1-F2 minimal fibrosis 0.48-0.58 F2 moderate fibrosis 0.58-0.72 F3 advanced fibrosis 0.72-0.74 F3-F4 advanced fibrosis 0.74-1.00 F4 severe fibrosis (Cirrhosis) NashTest 2 Score Normal (applies to non-numeric results) [facility] NashTest 2 Grade Normal (applies to non-numeric results) [facility] NashTest 2 Interpretation Normal (applies to no n-numeric results) [facility] NashTest 2 estimates non-alcoholic steat ohepatitis (KARIMI) NashTest 2 Score Grade Interpretation 0.00-0.25 N0 no KARIMI 0.25-0.50 N1 mild KARIMI 0.50-0.75 N2 moderate KARIMI 0.75-1.00 N3 severe KARIMI SteatoTest 2 Score Normal (applies to non-numer ic results) [facility] SteatoTest 2 Grade Normal (applies to non-numer ic results) [facility] SteatoTest 2 Interpretation Normal (applies to non-numeric results) [facility] RESULT: moderate/severe steatosis (34-10 0%) SteatoTest 2 estimates liver steatosis. A stage of S1 or S2S3 is considered clinically significant. SteatoTest 2 Score Stage Interpretation 0.00-0.40 S0 no steatosis (<5%) 0.40-0.55 S1 mild steatosis (5-33%) 0.55-1.00 S2S3 moderate/severe steatosis (34-100%) KARIMI-FibroTest Comment Normal (applies to non-n umeric results) [facility] The reliability of results is dependent on compliance with the preanalytical and analytical conditions recommended by [employer]. The tests have to be deferred for: [...] developed and its performance characteristics determined by [facility] in a manner consistent with CLIA requirements. This test has not been cleared or approved by the U.S. Food and Drug Administration. [facility] Serial Number [id number] Normal (appli es to non-numeric results) [facility] Apolipoprotein A1,S 143 mg/dL >=140 Normal (applies to non-nume yahir results) [facility] Mhexv-0-Jdsfzgcwraygy,S 171 mg/dL 100 - 280 Normal ( applies to non-numeric results) [facility] Haptoglobin,S 200 mg/dL 30 - 200 Normal (applies to non-numeric re sults) [facility] Alanine Amino (ALT),S 37 U/L 7-45 Normal (applies to non-nu meric results) [facility] Gamma Glutamyltrans (GGT),S 46 U/L 5 - 36 [facility] [facility] Total Bilirubin,S <=1.2 Normal (applies to non-numeri c results) [facility] Aspartate Aminotrans (AST),S 26 U/L 8 - 43 Nor mal (applies to non-numeric results) [facility] Total Cholesterol,S 201 mg/dL [facility] REFERENCE VALUE------ Desirable: < 200 Borderline high: 200 - 239 High: > or = 240 Triglycerides,S 197 mg/dL [facility] REFERENCE VALUE------ Normal: <150 Borderline high: 150-199 High: 200-499 Very high: > or =500 Fasting Glucose,Plas 92 mg/dL 70 - 100 Normal (applies to n on-numeric results) [facility] Test Performed by: [facility] [address] [place] [address] Customer Technical Services Manager: Willi Rendon M.D. Ph.D.; CLIA# [id number] Test Performed by: [facility] [address] [place] [address] Customer Technical Services Manager: Willi Rendon M.D. Ph.D.; CLIA# [id number] ID Date Data Source [id number] 02/07/2021 12:03:00 PM EDT [facility] Name Value Range Interpretation Code Description Data Ekta rce(s) Supporting Document(s) Bilirubin,Total 0.1-1.9 Normal (applies to non-numeric results) [facility] Bilirubin,Direct 0.05-0.20 Normal (applies to non-numeric results) [facility] SGOT(AST) 24 U/L 15-37 Normal (applies to non-numeric resul ts) [facility] Note the following drug interference: Sulfasalazine Sulfapyridine Can see falsely depressed Can see falsely elevated result with up to 10% results with up to 10% decrease in measurement increase in measurement Recommend patients be collected for this test prior to administration of either drug. SGPT(ALT) 51 U/L 12-78 Normal (applies to non-numeric resul ts) [facility] Note the following drug interference: Sulfasalazine Sulfapyridine Can see falsely depressed Can see falsely elevated result with up to 29% results with up to 10% decrease in measurement increase in measurement Recommend patients be collected for this test prior to administration of either drug. Alkaline Phosphatase 112 U/L 38-126 Normal (applies to non-num salome results) [facility] can increase Alkaline Phosp le vels up to 2 times the normal adult value. Normal values for children and adolescents are 2 to 3 times the normal adult value. Total Protein 6.0-8.2 Normal (applies to non-numeric re sults) [facility] Albumin Level 3.4-5.0 Normal (applies to non-numeric re sults) [facility] ID Date Data Source [id number] 02/06/2021 12:42:00 PM EDT [facility] Name Value Range Interpretation Code Description Data Ekta rce(s) Supporting Document(s) White Blood Count 4.8-10.8 Normal (applies to non-numeri c results) [facility] Red Blood Count 3.68-5.22 Normal (applies to non-numeric results) [facility] Hemoglobin 11.2-15.7 Normal (applies to non-numeric resul ts) [facility] Hematocrit 34.1-44.9 Normal (applies to non-numeric resul ts) [facility] Mean Corpuscular Volume 81-99 Normal (applies to non- numeric results) [facility] Mean Corpuscular Hemoglobin 27.0-33.0 Normal (appli es to non-numeric results) [facility] Mean Corpuscular HGB Conc 32.0-36.0 Normal (applies to no n-numeric results) [facility] Red Cell Distribution Width 11.5-14.5 Above high normal [facility] Platelet Count 287 X10 3/uL 130-450 Normal (applies to non-numeric results) [facility] Mean Platelet Volume 9.5-12.7 Normal (applies to non-num salome results) [facility] Imm Grans% (AUTO) 1 % 0-2 Normal (applies to non-numeri c results) [facility] Neutrophils % (AUTO) 58 % 40-75 Normal (applies to non-num salome results) [facility] Lymphocytes % (AUTO) 34 % 21-46 Normal (applies to non-num salome results) [facility] Monocytes % (AUTO) 6 % 5-12 Normal (applies to non-numer ic results) [facility] Eosinophils % (AUTO) 1 % 1-5 Normal (applies to non-num salome results) [facility] Basophils % (AUTO) 1 % 0-1 Normal (applies to non-numer ic results) [facility] Imm Grans# (AUTO) 0.0-0.5 Normal (applies to non-numeri c results) [facility] Neutrophils # (AUTO) 1.5-8.1 Normal (applies to non-num salome results) [facility] Lymphocytes # (AUTO) 1.0-3.1 Above high normal [facility] Monocytes # (AUTO) 0.2-1.3 Normal (applies to non-numer ic results) [facility] Eosinophils# (AUTO) 0.0-0.5 Normal (applies to non-nume yahir results) [facility] Basophils # (AUTO) 0.0-0.1 Normal (applies to non-numer ic results) [facility] ID Date Data Source [id number] 02/06/2021 12:42:00 PM EDT [facility] Name Value Range Interpretation Code Description Data Ekta rce(s) Supporting Document(s) Erythrocyte Sedimentation ESR 40 mm/hr 0-20 Above high normal [facility] ID Date Data Source [id number] 02/06/2021 12:26:00 PM EDT [facility] Name Value Range Interpretation Code Description Data Ekta rce(s) Supporting Document(s) Sodium 141 mmol/L 137-145 Normal (applies to non-numeric resul ts) [facility] Potassium 3.5-5.1 Normal (applies to non-numeric resul ts) [facility] Chloride 108 mmol/L 98-112 Normal (applies to non-numeric resul ts) [facility] Carbon Dioxide CO2 22.0-33.0 Normal (applies to non-numer ic results) [facility] Anion Gap 4.0-11.0 Normal (applies to non-numeric resul ts) [facility] BUN 20 mg/dL 7-17 Above high normal [facility] Creatinine 0.70-1.20 Below low normal [facility] GFR >60 Normal (applies to non-numeric results) [facility] Result based on MDRD formula. Glucose Level 90 mg/dL 74-99 Normal (applies to non-numeric re sults) [facility] The reference range is only applicable w hen fasting. Calcium-Uncorrected 8.4-10.2 Normal (applies to non-nume yahir results) [facility] Corrected Calcium 8.4-10.2 Normal (applies to non-numeri c results) [facility] Bilirubin,Total 0.2-1.3 Normal (applies to non-numeric results) [facility] SGOT(AST) 24 U/L 14-36 Normal (applies to non-numeric resul ts) [facility] SGPT(ALT) 40 U/L 9-52 Normal (applies to non-numeric resul ts) [facility] Alkaline Phosphatase 106 U/L 38-126 Normal (applies to non-num salome results) [facility] can increase Alkaline Phosp le vels up to 2 times the normal adult value. Normal values for children and adolescents are 2 to 3 times the normal adult value. Total Protein 6.3-8.2 Normal (applies to non-numeric re sults) [facility] Albumin 3.5-5.0 Below low normal [facility] ID Date Data Source [id number] 02/06/2021 12:26:00 PM EDT [facility] Name Value Range Interpretation Code Description Data Ekta rce(s) Supporting Document(s) C-Reactive Protein,Wide Range <3.00 Above high normal [facility] ID Date Data Source [id number] 01/29/2021 11:00:00 AM EDT [facility] Name Value Range Interpretation Code Description Data Ekta rce(s) Supporting Document(s) EGD-Colonoscopy [facility] IZLTLx0oQxHADdYlHPXsPkvXPGqoKHubGOTxR8Q3VZjhPc1FKFxhjfPzOWKlDq7+BUXiPD7uxy7sWICc gMy [file] subscription crew leader+xSj4OeKptX+MIjkYvXaLn9+bfILtpQ8tfmgYUjJls0k1ofxCQJ3sDdJ/MI7k+/3qVCAJo/Oy6Qa0m [file] T9UZPl6aNr+x1KRnKczFNdtybf8/wjYN89zkrhuy9Hk9li6Ro0pT6lMIwdgUj2ih+golf technician/5PxSonjQcEu [file] Cami/ajJW/ono7+F+RryUVD7dFw1IqMowcLy4PCwjflcKUM+fnAgrkmU4QQBBAAuLqwAZl2C2bTVSdKARv maria del rosario/Eox1DuwnV/1KHhSUJiP8CDgKMz/xCogv3/lcXX [file] FOL+Shredding Machine Knife [file] bqo2KnwsEibbqfwbmTBKkKBNmuIX+XYRpB6gHChvaHVUJy27Iowi36/2l+XDCnxVtS4AKI4pfa57/Sarah w4kaU6VPbVtqDCUbGFZFh+GHa4MjFORGy4INwletGl oAVKPbjU09kShg7huv9rkHcw2Hvjuvb2fGW45PiBTMJ6MBwX5LzhlyCYA2RgISy1dQK7ai5zdwT7zw8R +xRAy1L+xtYyXrHTct61dhZBEumumZ53EbTauHvoos6wfPWc7+oLu007pqT0BCh0tLIuSpugCWOEbFRd BAdKzndam0hnKIxRr8XkDyJSmzteV0Hj41It9TRFku R78hYPIczrf9cug9rqnuxKZM1lO8RrvaNvFe/LG/p58ffDSfMzmg1YT9894jjubshOGFpY6ag080tD20 IM090Iu/Au6rEMCnloNv1UQCAg3BTZZuSTyDNouxgOu1r6++KhUMUYPK4m7qtCIt9P0ngANeZ8U8hzDb iGCP6sf6eyirU9lXN7cLuoDNyxMTBuRK9nDoKINwwL SPDIwU+FXzd2i39IpEyAdV6iiQHgYCRp8yOWpxOFkRNxN/zMDSaf6yXaQ7XGWsI/0k6WX349BxMmJ7F3 9sjFi9Ud5cWKvavVZf8BNdLb9s0b4eV2e+2sEyfvcInaPLVMVDPtvNFqrO1Bvh0TQDYMm4GNYDa4wsxS jQJJ5l8h2Wa2skZmHnEwezFnk0zhvBohaqhlaciELo ILKAWJZPa93/XeO5XNfx9SubJ5+5GtLYno7dQV6N0FNCb6SxROF8b0lTHhd5NSYW242h93e3nKpbIARK 4/e3UlVR2lAIHKnIKjxeZtZKEgbPTS7O9K9fSlfA5oGG3ln6xBucV6+5U+cTlXJBv044i0TQImj/h1m7 YoEczhZmwOr2TyZX7m9QQWYLFx/EWW4E6zIzBp+hOW AoArlvG300LNB8FBkI+/Beatriz/pvvzMYyqf78LjATkKy5esB0agAJorrf6VRvjhVrZqp4MYaaHO20XPk+ 9AT55Q0Eq2ILNbjNggnoOd7fm8Y+dDu+7nCFJWmbFF55zvjJxUxTC1e4tgRCcWXkgjaFqkbtDFZQQ4KS 9sIozlTZX0IMB/wdbGiJMrf9/yJbQv8+NYDVJIqqrB 09tSemOaDGYVIKTDapafSERlPIRqCuDbyOzGDSj95bJZdAngs69IcNoK0ZXM2ky9K8tWXdQBeLYwWJv+ WwZHLDhwbVvtyl9/MS39oCFbKCuKEREt7b8IoXmbIGQnOfVazFxLxuzeoCoAWlT6I3Z9IU8OxCSq2WTZ 7tVdsgdxQYm3d4/atnzuxwFhkdF6qPiTXbhbszHFrh h6dNo4CQihXpsrxnJno4xQ8+ZCqElpjOKXp2kiqxYO0UXCZGxkKOxZJOCWvzD9E0cw2VcGozMqj2mkIe 48hHUk8sWYgarvuRttZsEQnbkCXUSnE6fRBpcByfej/0V/oiUYK1iZtseoU4kzUxGQqfRMc1F5FqqQnm Tsjb7Bu+QSl3O0cUhZGAYR0/TMHgEfLRbwGCYyaOa6 subscription crew leader+RQ0fxiYXQfKV+q4bAlwDCQhLyE3Hd36oA0ji5ChtdfdPSu+IlLEHu0GEGoThafhjgUXPp4zCd6aYc [file] sKPw48oyPVL8Se8gS5y90BxyVaBhx9haJ05+PM [file] Jose D+D3Kii4i4w00fjQqNpMHeH/kE5GqmlNvpWhS+eV EkFc/ARSzljI9YiczlxU6ClfRce3MTLn0xQGGaa9Y6W4mvAJN3u10Me0r/7RDBitDA9uS18zrGv0/c+Y Z3X1upQPS39mcbBzapXhwvuMXhy/wCPmO/KTM3V2pY/cyN0ygU5GolVYtyySffrgROb3tYF5q4/WerWt OfQIIXZDmfby2NXh/XSNijsz+8NTyx+kB7Yors682f dePaJNp4j9ABKU8iv2U4lJ/5oTyU7NcWPrsQO9EnoijafVpRqjF3qRQEOeqiIhZOHvDfK/K3K/KDF6zS 3Rzr9Zl6I7bJyAYBi14psHiJ8+mYXkpu4fT5KXJLdBUK3k5LHu29CL3zXveeWstGf7Bqkqt13sxqaW3+ 9+kMkdkyJIBwjtiPkvnyyVakfo9pslDH3e9NVu6Y7f [file] fOX6RFzMMtvf3NLYaAbSA2hiXLvj4cnaQqG/Maria Del Rosario/ARKmb/JzQTAh1g0KrMI43I+WjIdzw6F44JuNNO77 [file] kpW//pP/rPh44zPR+5iMRY4TIZx2FCErp7n/Yd5+User Experience Researcher [file] [id number] ID Date Data Source [id number] 01/24/2021 08:23:00 PM EDT [facility] FAX TO [phone] Name Value Range Interpretation Code Description Data Ekta rce(s) Supporting Document(s) SARS-CoV-2 RNA INHOUSE Negative Normal (applies to non-n umeric results) [facility] THIS IS A [facility] REPORTABLE COMMUNICABLE DISEASE. Testing was performed using the [employer] COVID-19 MDx Assay. This test has been [...] be found at the following links: Providers: https://www.fda.gov/media/348057/download Patients : https://www.fda.gov/media/895375/download THIS IS A [facility] REPORTABLE COMMUNICABLE DISEASE Negative results do not preclude SARS-CoV-2 infection and should not be used as the sole basis for patient management decisions. Negative results must be combined with clinical observations,patient history, and epidemiological information. ID Date Data Source [id number] 01/24/2021 07:30:00 AM EDT [facility] Name Value Range Interpretation Code Description Data Ekta rce(s) Supporting Document(s) Respiratory specimen severe acute respir atory syndrome coronavirus 2 (SARS-CoV-2) RNA Negative (qualifier value) [facility] This lab was ordered by Beverley raymond and reported by . ID Date Data Source [id number] 01/22/2021 02:06:00 PM EDT [facility] Imaging Services Department Imaging Report [address], [place] [address] %(RAD)RES..mtdd.print.filter("line") Name: ANGELIA ARTHUR : 1965 Age/Sex: 55F Ordering Provider: NGUYEN Parr Med Rec #: [id number] Reg Status: [facility] ER Room #: Date of Service: 01/21/21 Report Number: [id number] cc:Valerie Tarango MD Send Report To: [id number] MRI/MRI Lum Spine No Contrast Reason for [...] Date/Time: 01/21/21 1631 Transcribed Date/Time: 01/22/21 1406 Mobile Mechanic: [email or web address] Name Value Range Interpretation Code Description Data Ekta rce(s) Supporting Document(s) ID Date Data Source [id number] 01/20/2021 06:06:00 PM EDT [facility] Name Value Range Interpretation Code Description Data Ekta rce(s) Supporting Document(s) FESAT Iron result 173 ug/dL 37-170 [facility] Test Performed By: [facility] [address] [place] [address] Director: Sandra Zuñiga MD FESAT TIBC result 367 ug/dL 265-497 Normal (applies to non-numeri c results) [facility] Test Performed By: [facility] [address] [place] [address] Director: Sandra Zuñiga MD FESAT %Iron Saturation result 12.0-55.0 No rmal (applies to non-numeric results) [facility] Test Performed By: [facility] [address] [place] [address] Director: Sandra Zuñiga MD ID Date Data Source [id number] 01/20/2021 06:06:00 PM T [facility] Name Value Range Interpretation Code Description Data Ekta rce(s) Supporting Document(s) Ferritin result 263 ng/mL 11.1-264.0 Normal (applies to non-numeric results) [facility] Test Performed By: [facility] [address] [place] [address] Director: Sandra Zuñiga MD ID Date Data Source [id number] 01/20/2021 02:14:00 PM EDT [facility] Name Value Range Interpretation Code Description Data Ekta rce(s) Supporting Document(s) Hemoglobin A1c Above high normal [facility] Reference Range Normal: < 5.7% Pr ediabetes: 5.7-6.4% Diabetes: > 6.5% Estimated Avg Glucose 134 mg/dL 126-240 Normal (applies to non-numeric results) [facility] ID Date Data Source [id number] 01/20/2021 01:36:00 PM EDT [facility] Value Range Interpretation Code Description Data Ekta rce(s) Supporting Document(s) Vitamin D, Total 30.0-100.0 Below low normal [facility] ID Date Data Source [id number] 01/20/2021 05:20:00 PM EDT [facility] Value Range Interpretation Code Description Data Ekta rce(s) Supporting Document(s) Iron FE Level 173 ug/dL 37-170 Above high normal [facility] Test Performed By: [facility] [address] [place] [address] Director: Sandra Zuñiga MD Total Iron Binding Capacity 367 ug/dL 265-497 Norm al (applies to non-numeric results) [facility] Test Performed By: [facility] [address] [place] [address] Director: Sandra Zuñiga MD %Iron Saturation 12.0-55.0 Normal (applies to non-numeric results) [facility] Test Performed By: [facility] [address] [place] [address] Director: Sandra Zuñiga MD ID Date Data Source [id number] 01/20/2021 05:20:00 PM EDT [facility] Value Range Interpretation Code Description Data Ekta rce(s) Supporting Document(s) Ferritin 263 ng/mL 11.1-264.0 Normal (applies to non-numeric resul ts) [facility] Test Performed By: [facility] [address] [place] [address] Director: Sandra Zuñiga MD ID Date Data Source [id number] 01/15/2021 07:21:00 AM EDT [facility] Name: ANGELIA ARTHUR : 1965 Age/Sex: 55F Ordering Provider: Estrada Colindres MD Med Rec #: [id number] Reg Status: DEP REF Room #: Date of Service: 01/13/21 Report Number: [id number] cc:Valerie Tarango MD; Estrada Colindres MD Send Report To: [id number] XRP/XR Fluoro Plain Reason for exam: MYASTHENIA [...] Date/Time: 01/13/21 1744 Transcribed Date/Time: 01/15/21 0721 Mobile Mechanic: MACHO Name Value Range Interpretation Code Description Data Ekta rce(s) Supporting Document(s) ID Date Data Source [id number] 01/16/2021 06:49:00 PM EDT [facility] Name Value Range Interpretation Code Description Data Ekta rce(s) Supporting Document(s) Calprotectin,Fecal result 90 ug/g 0-120 Normal (applies to non-numeric results) [facility] Concentration Interpretation Follo w-Up <16 - 50 ug/g Normal None >50 -120 ug/g Borderline Re-evaluate in 4-6 weeks >120 ug/g Abnormal Repeat as clinically indicated Performed at: [address] [id number] Customer Technical Services Manager: Favio Mcknight MD, Phone: [phone] ID Date Data Source [id number] 01/16/2021 06:47:00 PM EDT [facility] Name Value Range Interpretation Code Description Data Ekta rce(s) Supporting Document(s) Calprotectin,Stool(LCI) result 90 ug/g 0-120 N ormal (applies to non-numeric results) [facility] Concentration Interpretation Follo w-Up <16 - 50 ug/g Normal None >50 -120 ug/g Borderline Re-evaluate in 4-6 weeks >120 ug/g Abnormal Repeat as clinically indicated Performed at: [address] [id number] Customer Technical Services Manager: Favio Mcknight MD, Phone: [phone] ID Date Data Source [id number] 01/10/2021 10:26:00 AM EDT [facility] Name: ANGELIA ARTHUR [facility] Rec #: [id number] : 1965 Age/Sex: 55F Date of Service: 01/10/21 PHYSICIAN CHART Physician Documentation [facility] Name: Angelia Arthur Age: 55 yrs Sex: [...] 55-year-old female with a past medical history [facility] of arthritis, chronic back pain, GERD, liver [...] is not exacerbated with bowel movements . 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 ROS: 14:00 Constitutional: Negative for fever. Abdomen/GI: [...] 14.4; HGB 13.2; RDW 16.0; PLT 286. [facility] 01/10 11:32 Order name: Comprehensive Metabolic Prof.; [...] name: Cardiology EKG Interpretation - Choose Reason [facility] for Test 01/10 12:40 Order name: Renal - US [facility] 01/10 14:25 Order name: Ct Abdomen & Pelvis with Con 2 01/10 11:32 Order name: NPO; Complete Time: 12:14 2 Dispensed Medications: 13:41 Drug: Ofirmev 1000 mg [Ofirmev 1,000 mg/100 mL (10 mg/mL) [facility] intravenous solution] Route: IVPB; Site: right antecubital; 13:51 Follow up: Response: Pain is decreased; IV Status: [facility] Completed infusion; IV Intake: 100ml Disposition Summary: 01/10/21 15:10 Discharge Ordered Location: Home/Self Care [facility] Condition: Good [facility] Diagnosis - Abdominal Pain, Right Lower Quadrant [...] Pain, Adult 2 Forms: - Medication Reconciliation [facility] Signatures: Dispatcher [employer] Roosevelt Irizarry DO DO rc3 Carisa Adkins PA-C PAHayes [facility] Winsome Marino RN Hamilton Stock RN RN rj Corrections: (The following items were deleted from the chart) 11:10 11:07 Home Meds: Vitamin B-12 Oral tab; kendrick marks Name Value Range Interpretation Code Description Data Ekta rce(s) Supporting Document(s) ID Date Data Source [id number] 01/10/2021 10:26:00 AM EDT [facility] Name: ANGELIA ARTHUR [facility] Rec #: [id number] : 1965 Age/Sex: 55F Date of Service: 01/10/21 DISPOSITION SUMMARY Discharge Summary [facility] Name:Angelia Arthur Emergency Department Age:55 yrs Sex:Female [...] - both GI 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 </span>
<span>Return to the emergency room for [...] rce(s) Supporting Document(s) ID Date Data Source [id number] 01/10/2021 10:26:00 AM EDT [facility] Name: ANGELIA ARTHUR [facility] Rec #: [id number] : 1965 Age/Sex: 55F Date of Service: 01/10/21 NURSE CHART Nurse's Notes [facility] Name: Angelia Arthur Age: 55 yrs Sex: Female : 1965 Arrival Date: 01/10/2021 Time: 10:26 Bed 13 Private MD: Valerie Tarango L Diagnosis: Abdominal Pain, Right Lower Quadrant Presentation: 01/10 10:42 Acuity: Urgent - 3 kendrick 11:03 Transition of care: patient was not received from another [facility] setting of care. Presenting complaint: Patient [...] COVID-19? No. 11:03 Method Of Arrival: Walk-In [facility] Triage Assessment: 11:05 SEPSIS SCREEN: A Confirmed [...] meal was January 09, 2021. at 17:00. 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 Screenin:15 AUDIT 1. How often do you [...] 18; Pulse Ox 98% on R/A; Pain [facility] 03/20; 15:06 BP 129 / 85; Pulse 75; Resp 18; Pulse Ox 98% on R/A; Pain [facility] 02/17; 11:01 Body Mass Index 44.29 (113.40 [...] by ED staff. Urine collected. Clean catch [facility] specimen. Inserted peripheral IV: 20 gauge in right antecubital area and blood collected. 13:07 Radiology: The patient returned from ultrasound at 13:08. rj 15:10 Valerie Tarango MD is Referral Physician. hm2 15:37 No procedures ordered. Discontinued IV intact, bleeding rjh1 controlled, pressure dressing applied, No redness/swelling at site. Administered Medications: 13:41 Drug: Ofirmev 1000 mg [Ofirmev 1,000 mg/100 mL (10 mg/mL) [facility] intravenous solution] Route: IVPB; Site: right antecubital; [...] rce(s) Supporting Document(s) ID Date Data Source [id number] 01/13/2021 07:08:00 AM EDT [facility] Name: ANGELIA ARTHUR : 1965 Age/Sex: 55F Ordering Provider: NGUYEN Neal Med Rec #: [id number] Reg Status: [facility] Room #: Date of Service: 01/10/21 Report Number: [id number] cc:Valerie Tarango MD; NGUYEN Neal Send Report To: [id number] CT/CT Abdomen & Pelvis w Con Reason [...] rce(s) Supporting Document(s) ID Date Data Source [id number] 01/12/2021 04:06:00 PM EDT [facility] Name: ANGELIA ARTHUR : 1965 Age/Sex: 55F Ordering Provider: NGUYEN Neal Med Rec #: [id number] Reg Status:[facility] Room #: Date of Service: 01/10/21 Report Number: [id number] cc: Valerie Tarango MD; NGUYEN Neal Send Report To: Reason for exam: ABDOMINAL PAIN SINUS RHYTHM Physician Ghost Writer: Yair Portillo M.D. ECG HEART RATE: 73 /min ECG RR INTERVAL: 814 ms ECG P DURATION: 111 ms ECG QRS DURATION: 80 ms ECG LA INTERVAL: 154 ms ECG QT INTERVAL: 361 ms ECG QTC INTERVAL: 383 ms Q-T dispersion: ms ECG P AXIS: 55 deg ECG QRS AXIS: 69 deg ECG T AXIS: 57 deg REPORT SIGNATURE ON FILE 01/12/21 1606 Reported By: Yair Portillo MD <<Signature on File>> Exam Date/Time: 01/10/21 1316 Order #: [id number] Dictation Date/Time: 01/12/21 1606 Transcribed Date/Time: 01/12/211605 Mobile Mechanic: VALDO Wade Value Range Interpretation Code Description Data Ekta rce(s) Supporting Document(s) ID Date Data Source [id number] 01/13/2021 10:24:00 AM EDT [facility] Name: ANGELIA ARTHUR : 1965 Age/Sex: 55F Ordering Provider: NGUYEN Neal Med Rec #: [id number] Reg Status: [facility] Room #: Date of Service: 01/10/21 Report Number: [id number] cc:Valerie Tarango MD; NGUYEN Neal Send Report To: [id number] US/US Renal Ultrasound Reason for exam: FLANK [...] Date/Time: 01/10/21 0147 Transcribed Date/Time: 01/13/21 1024 Mobile Mechanic: WOLF Name Value Range Interpretation Code Description Data Ekta rce(s) Supporting Document(s) ID Date Data Source [id number] 01/10/2021 01:15:00 PM EDT [facility] Name Value Range Interpretation Code Description Data [facility] rce(s) Supporting Document(s) Troponin I 0.000-0.045 Normal (applies to non-numeric resu lts) [facility] ID Date Data Source [id number] 01/10/2021 01:13:00 PM EDT [facility] Name Value Range Interpretation Code Description Data [facility] rce(s) Supporting Document(s) Sodium 138 mmol/L 137-145 Normal (applies to non-numeric resul ts) [facility] Potassium 3.5-5.1 Normal (applies to non-numeric resul ts) [facility] Chloride 106 mmol/L 98-112 Normal (applies to non-numeric resul ts) [facility] Carbon Dioxide CO2 22.0-33.0 Normal (applies to non-numer ic results) [facility] Anion Gap 4.0-11.0 Below low normal [facility] BUN 17 mg/dL 7-17 Normal (applies to non-numeric resul ts) [facility] Creatinine 0.70-1.20 Below low normal [facility] GFR 90 mL/min >60 Normal (applies to non-numeric resul ts) [facility] Result based on MDRD formula. Glucose Level 87 mg/dL 74-99 Normal (applies to non-numeric re sults) [facility] The reference range is only applicable w hen fasting. Calcium-Uncorrected 8.4-10.2 Normal (applies to non-nume yahir results) [facility] Corrected Calcium 8.4-10.2 Normal (applies to non-numeri c results) [facility] Bilirubin,Total 0.2-1.3 Normal (applies to non-numeric results) [facility] SGOT(AST) 22 U/L 14-36 Normal (applies to non-numeric resul ts) [facility] SGPT(ALT) 35 U/L 9-52 Normal (applies to non-numeric resul ts) [facility] Alkaline Phosphatase 116 U/L 38-126 Normal (applies to non-num salome results) [facility] can increase Alkaline Phosp le vels up to 2 times the normal adult value. Normal values for children and adolescents are 2 to 3 times the normal adult value. Total Protein 6.3-8.2 Normal (applies to non-numeric re sults) [facility] Albumin 3.5-5.0 Normal (applies to non-numeric resul ts) [facility] ID Date Data Source [id number] 01/10/2021 01:13:00 PM EDT [facility] Name Value Range Interpretation Code Description Data Ekta rce(s) Supporting Document(s) C-Reactive Protein,Wide Range <3.00 Above high normal [facility] ID Date Data Source [id number] 01/10/2021 01:13:00 PM EDT [facility] Name Value Range Interpretation Code Description Data Ekta rce(s) Supporting Document(s) Lipase 121 U/L 73-393 Normal (applies to non-numeric resul ts) [facility] ID Date Data Source [id number] 01/10/2021 12:57:00 PM EDT [facility] Name Value Range Interpretation Code Description Data Ekta rce(s) Supporting Document(s) Color,Urine Yellow Normal (applies to non-numeric resu lts) [facility] Clarity,Urine Clear Normal (applies to non-numeric re sults) [facility] Specific [place],Urine 1.001-1.030 Normal (applies to non- numeric results) [facility] PH,Urine 4.6-8.0 Normal (applies to non-numeric resul ts) [facility] Protein,Urine Negative Normal (applies to non-numeric re sults) [facility] Glucose,Urine (UA) Negative Normal (applies to non-numer ic results) [facility] Ketones,Urine Negative Normal (applies to non-numeric re sults) [facility] Blood,Urine Negative Normal (applies to non-numeric resu lts) [facility] Bilirubin,Urine Negative Normal (applies to non-numeric results) [facility] Urobilinogen,Urine Norm 0.2-1 Normal (applies to non-numer ic results) [facility] Leukocyte Esterase,Urine Negative Normal (applies to non -numeric results) [facility] Nitrite,Urine Negative Normal (applies to non-numeric re sults) [facility] ID Date Data Source [id number] 01/10/2021 12:55:00 PM EDT [facility] Name Value Range Interpretation Code Description Data Ekta rce(s) Supporting Document(s) White Blood Count 4.8-10.8 Above high normal [facility] Red Blood Count 3.68-5.22 Normal (applies to non-numeric results) [facility] Hemoglobin 11.2-15.7 Normal (applies to non-numeric resul ts) [facility] Hematocrit 34.1-44.9 Normal (applies to non-numeric resul ts) [facility] Mean Corpuscular Volume 81-99 Below low normal [facility] Mean Corpuscular Hemoglobin 27.0-33.0 Normal (appli es to non-numeric results) [facility] Mean Corpuscular HGB Conc 32.0-36.0 Normal (applies to no n-numeric results) [facility] Red Cell Distribution Width 11.5-14.5 Above high normal [facility] Platelet Count 286 X10 3/uL 130-450 Normal (applies to non-numeric results) [facility] Mean Platelet Volume 9.5-12.7 Normal (applies to non-num salome results) [facility] Imm Grans% (AUTO) 1 % 0-2 Normal (applies to non-numeri c results) [facility] Neutrophils % (AUTO) 66 % 40-75 Normal (applies to non-num salome results) [facility] Lymphocytes % (AUTO) 26 % 21-46 Normal (applies to non-num salome results) [facility] Monocytes % (AUTO) 6 % 5-12 Normal (applies to non-numer ic results) [facility] Eosinophils % (AUTO) 2 % 1-5 Normal (applies to non-num salome results) [facility] Basophils % (AUTO) 0 % 0-1 Normal (applies to non-numer ic results) [facility] Imm Grans# (AUTO) 0.0-0.5 Normal (applies to non-numeri c results) [facility] Neutrophils # (AUTO) 1.5-8.1 Above high normal [facility] Lymphocytes # (AUTO) 1.0-3.1 Above high normal [facility] Monocytes # (AUTO) 0.2-1.3 Normal (applies to non-numer ic results) [facility] Eosinophils# (AUTO) 0.0-0.5 Normal (applies to non-nume yahir results) [facility] Basophils # (AUTO) 0.0-0.1 Normal (applies to non-numer ic results) [facility] ID Date Data Source [id number] 01/08/2021 05:06:00 PM EDT [facility] Name Value Range Interpretation Code Description Data Ekta rce(s) Supporting Document(s) White Blood Count 4.8-10.8 Above high normal [facility] Red Blood Count 3.68-5.22 Normal (applies to non-numeric results) [facility] Hemoglobin 11.2-15.7 Normal (applies to non-numeric resul ts) [facility] Hematocrit 34.1-44.9 Normal (applies to non-numeric resul ts) [facility] Mean Corpuscular Volume 81-99 Below low normal [facility] Mean Corpuscular Hemoglobin 27.0-33.0 Below low normal [facility] Mean Corpuscular HGB Conc 32.0-36.0 Normal (applies to no n-numeric results) [facility] Red Cell Distribution Width 11.5-14.5 Above high normal [facility] Platelet Count 332 X10 3/uL 130-450 Normal (applies to non-numeric results) [facility] Mean Platelet Volume 9.5-12.7 Normal (applies to non-num salome results) [facility] Imm Grans% (AUTO) 1 % 0-2 Normal (applies to non-numeri c results) [facility] Neutrophils % (AUTO) 77 % 40-75 Above high normal [facility] Lymphocytes % (AUTO) 15 % 21-46 Below low normal [facility] Monocytes % (AUTO) 6 % 5-12 Normal (applies to non-numer ic results) [facility] Eosinophils % (AUTO) 0 % 1-5 Below low normal [facility] Basophils % (AUTO) 0 % 0-1 Normal (applies to non-numer ic results) [facility] Imm Grans# (AUTO) 0.0-0.5 Normal (applies to non-numeri c results) [facility] Neutrophils # (AUTO) 1.5-8.1 Above high normal [facility] Lymphocytes # (AUTO) 1.0-3.1 Normal (applies to non-num salome results) [facility] Monocytes # (AUTO) 0.2-1.3 Normal (applies to non-numer ic results) [facility] Eosinophils# (AUTO) 0.0-0.5 Normal (applies to non-nume yahir results) [facility] Basophils # (AUTO) 0.0-0.1 Normal (applies to non-numer ic results) [facility] ID Date Data Source [id number] 01/08/2021 05:06:00 PM EDT [facility] Name Value Range Interpretation Code Description Data Ekta rce(s) Supporting Document(s) Erythrocyte Sedimentation ESR 22 mm/hr 0-20 Above high normal [facility] ID Date Data Source [id number] 01/08/2021 03:00:00 PM EDT [facility] Name Value Range Interpretation Code Description Data Ekta rce(s) Supporting Document(s) Sodium 138 mmol/L 137-145 Normal (applies to non-numeric resul ts) [facility] Potassium 3.5-5.1 Normal (applies to non-numeric resul ts) [facility] Chloride 105 mmol/L 98-112 Normal (applies to non-numeric resul ts) [facility] Carbon Dioxide CO2 22.0-33.0 Normal (applies to non-numer ic results) [facility] Anion Gap 4.0-11.0 Normal (applies to non-numeric resul ts) [facility] BUN 15 mg/dL 7-17 Normal (applies to non-numeric resul ts) [facility] Creatinine 0.70-1.20 Below low normal [facility] GFR >60 Normal (applies to non-numeric results) [facility] Result based on MDRD formula. Glucose Level 154 mg/dL 74-99 Above high normal [facility] The reference range is only applicable w hen fasting. Calcium-Uncorrected 8.4-10.2 Normal (applies to non-nume yahir results) [facility] Corrected Calcium 8.4-10.2 Normal (applies to non-numeri c results) [facility] Bilirubin,Total 0.2-1.3 Normal (applies to non-numeric results) [facility] SGOT(AST) 13 U/L 14-36 Below low normal [facility] SGPT(ALT) 37 U/L 9-52 Normal (applies to non-numeric resul ts) [facility] Alkaline Phosphatase 121 U/L 38-126 Normal (applies to non-num salome results) [facility] can increase Alkaline Phosp le vels up to 2 times the normal adult value. Normal values for children and adolescents are 2 to 3 times the normal adult value. Total Protein 6.3-8.2 Normal (applies to non-numeric re sults) [facility] Albumin 3.5-5.0 Below low normal [facility] ID Date Data Source [id number] 01/08/2021 03:00:00 PM EDT [facility] Name Value Range Interpretation Code Description Data Ekta rce(s) Supporting Document(s) C-Reactive Protein,Wide Range <3.00 Above high normal [facility] ID Date Data Source [id number] 01/07/2021 03:09:00 PM EDT [facility] Name: ANGELIA ARTHUR : 1965 Age/Sex: 55F Attending Physician: Estrada Colindres MD [facility] Rec #: [id number] Admission Date: Room #: Admitting Physician: Report Number: [id number] _ cc: Valerie Tarango MD Send Report [...] rce(s) Supporting Document(s) ID Date Data Source [id number] 01/09/2021 11:58:00 AM EDT [facility] Name: ANGELIA ARTHUR : 1965 Age/Sex: 55F Ordering Provider: Estrada Colindres MD Med Rec #: [id number] Reg Status: [facility] Room #: Date of Service: 01/07/21 Report Number: [id number] cc:Valerie Tarango MD; Estrada Colindres MD Send Report To: [id number] XRP/XR Chest Xray Portable Reason for exam: [...] Date/Time: 01/07/21 1516 Transcribed Date/Time: 01/09/21 1158 Mobile Mechanic: CAMPOS Name Value Range Interpretation Code Description Data Ekta rce(s) Supporting Document(s) ID Date Data Source [id number] 01/08/2021 08:03:00 AM EDT [facility] Name: ANGELIA ARTHUR : 1965 Age/Sex: 55F Ordering Provider: Estrada Colindres MD Med Rec #: [id number] Reg Status: [facility] Room #: Date of Service: 01/07/21 Report Number: [id number] cc:Valerie Tarango MD; Estrada Colindres MD Send Report To: [id number] XRP/XR C-Arm No Charge Reason for exam: [...] Date/Time: 01/07/21 1443 Transcribed Date/Time: 01/08/21 0803 Mobile Mechanic: SILVINO Name Value Range Interpretation Code Description Data Ekta rce(s) Supporting Document(s) ID Date Data Source [id number] 01/07/2021 11:15:00 AM EDT [facility] Name Value Range Interpretation Code Description Data Ekta rce(s) Supporting Document(s) Respiratory specimen severe acute respir atory syndrome coronavirus 2 (SARS-CoV-2) RNA Negative (qualifier value) [facility] This lab was ordered by [facility] layne and reported by [facility]. ID Date Data Source [id number] 01/07/2021 11:44:00 AM EDT [facility] Negative results should be treated as pr [...] Certificate of Accreditation. Factsheets for healthcare providers: https://www.fda.gov/media/147138/download Factsheets for patients: https://www.fda.gov/media/543060/download The ID NOW Instrument is a rapid molecular in vitro diagnostic test utilizing an isothermal nucleic acid amplification technology intended for the qualitative detection of nucleic acid from the SARS-CoV-2 viral RNA. THIS IS A STATE REPORTABLE COMMUNICABLE DISEASE. Manual entry verified by Guerda Perez 01/07/21 1144 Test Performed By: [facility] [address] [place] [address] Director: Sandra Zuñiga MD Name Value Range Interpretation Code Description Data Ekta rce(s) Supporting Document(s) ID Date Data Source [id number] 01/03/2021 05:19:00 PM EDT [facility] Name: ANGELIA ARTHUR : 1965 Age/Sex: 55F Ordering Provider: Win Ray MD [facility] Rec #: [id number] Reg Status: [facility] REF Room #: Date of Service: 01/02/21 Report Number: [id number] cc:Valerie Tarango MD; Win Ray MD Send Report To: [id number] XRP/XR Modified Barium Swallow Reason for exam: [...] Date/Time: 01/02/21 1603 Transcribed Date/Time: 01/03/21 1719 Mobile Mechanic: CAMPOS Name Value Range Interpretation Code Description Data Ekta rce(s) Supporting Document(s) ID Date Data Source [id number] 12/31/2020 01:15:00 PM EDT [facility] Name Value Range Interpretation Code Description Data Ekta rce(s) Supporting Document(s) [facility] SGQXOe5lOhWBYsMvTSOqEezOTHjzLTnySUNtT3J8SIcmCa4MAClfmsFtAIZpAn0+JIPpZT7orb8sKYEx gMy [file] S/AK2/gN4/zwzWAVlmioQFjLqTU8btMi/historic sites registrar/5yPid [file] BjaNbzBOEeSTwR5ab2+RjuYuKrMrUG0+BBZbtmI93huT11s3/Jose Guadalupe/AoS+u9uoGGkky/SHAT/U6DTPQUb [file] Manuel yY11lCvEuq74rnTKc4nrydv2FgzDetFkHdZ8widIQR 1Ly0we5nsXoUhVzbyjay85mX4zxbvK8tG7ygoyXP/yJCdw+fqIl/kCBrWZ/BHDnXYCMDkVSdYSBMRJiv qC5bcbBQfxySIJ+PKgStyLKsyyk9qDJfH02mIiPDYV5+d119IMorW3WLOvmAVxslMLfuWfLqwWQoh2FI tgxaGBGQ05BUgj186Jq9jeqaJQASASRh6Q3kBbuPv/ 9CutIB6rZ+HWt3HYYB5TqO4leL6Q/vbgdjfKsPhFbF9x38Dtk50MixhaPgjhMnYPu5pvVrijSIRyhvl6 T3BY2biN28LVhj+WXltSPlni093QxI01YBu7EpLj5qrjZ1kwOQEXheY9wEC9HQ2QRHSxRta8ZZnv1/ow kNUUvgROMdWleiyfQFuFUG4FvnefrB3qG8VR5SYN7a qEvSQJAeJOj8L1LnKIWW3SWJzL6SPJQNYJlVMqiagTNClP/maria isabel/5vbJJ9aQTRaiiNodSGLkrlhakemJr [file] marketing [file] xFNVhC9csoJR39yk2ag3f2Di1/dH/3PvuXWq+/l2gxw6t8zqlp0GEz9MhXMRuhuMJglrPNY0xBfy/material yard clerk 8mPkALcIuP0keRHAgkP7js4awSLuqMINZ2FUqyfEc3 q3S4/I735Qytzz9X6Yr0QY9T7lIAtkhJAcJdya7nmSxVGG+B1/CN0OWTjeAOpZkJ6H5CLoSyHgOcle7r 4F/3Zi51yb2r81GbLs9OfdeHt6Rr77acp8mFl81ITrP8irCrcEryqAQD247Uj5jYPPco+eFL6nNPp/3R S2HCvUVQfI/AQ4nKISiUqQopNDsGa9CL55cJtjuzjV pv2OzT0gUQAIMdp441tnhBBc3Kf85Sv4QzAKAt8hbN+Jj5TF/ni1aQP9ZgeS/EbkqbGX+J5UwgNboMHU U44u2QOmvNUAsDs6ZYkP8hNYc/O1yCXMp9oQi+a8+RhusKkr/y9NQUv+BUXdQy1e7IMhewcu/2gk9RoM 3FhVfWivtC31SRqoRm4zEX0WPeE6St5LD5uNjzN3aN UKy0DoWNLQlzxqK40Q/XQzvcj40+s0lYVzvFTd75GVpSHB4kKRlPp7lqsV5LFyeeLQfiXUzPdtntLne8 GAjKw+UjIUkZv+sMzojK44HHwTA6WBQdS3WJndxHox/os9GZ/jLHTeR4e5WVgkwCQuVg47JGaZwe/lw0 YAcFWWklX3DsLayXTOh6u96ZLupGU78cDW/BQgRQhX wpHaP+twR8r4M+yWIYaNz+yLBbqK898B8ahK5Rae0U2M/DFDmb1BbfhYS+xezGCRgBkRjuWO9D76s2+U RWgD4EmzdVJ53r1LE5wJmc5b9AKQN3I8jlzSKmXjV4xBkdYCcTGVlYno52gq279fpbDd+M3LteBV/Kenneth [file] HEGILczN/U4kRrKCzRrsakdPfo1pGCnlWZyir2d67TIzPv0E0++sF6Q3ZICPriKF2iPNLIOwpe+8I/User Experience Researcher [file] Owu5JMANeVFCOfSNRSFOs5aONG9Q0BWRGKTtm5wvNT JQFuLHeSoJm5oXKsbA7/CcOhLwYrLx95/5MiMxw5o18t9/72t9ZZ+dew7EtddqUPpb0AarSp6+Kve+oP pQLYXg9zFRRRm3LNnRBcD9Rtb42lpZmeJW771sS1jGsTHCIXCFZeAiwObLw+6pcAhareVoR1cCGj7KqP MZq7A+bSQPvghNYGAUXmK3BfFwbmCt9LiMGdZxX1hy NTSbKvvJ7K6XEqlGF9maueGEBZDvzjtJ/2f7+suuA9oRXvH/hIEo8dRKVk5yC1r0MiiyoaeIfukU3EBQ bgJSDZUo6xmGAuemo3MKYKifxu57QHedilK6sgD+Bdf+G9TxyNS33ossq/O++T5SQj3x8FFvtFcGFpPT jEP3YHnXhurdZgQ/IbT22CEB0J1hwNz83UdFbTmp5c 5plZOs4ureFfa2dVOP5mxZAlvTOHRl8xzYy/jH+phw09WRdZr4Ayvaf1t9NOoUc3IHqCRyqnD58gwg1L PV1hVQE/AU55fuHWKLb2/u/xyxLB5ZBUnMaQvk8xFclkqTn8mv63cvbPGye+qerOmnws0Ah7D6Tx+tw+ tALLgftrkkXdKW37QBA9DgwOyZXFiD8UDF/GTa3HAs EH2LvBYYPLM+2zrgHyv9Z+HBwxOCJjKxh7LGtp9dpYRCBM399xvWcQIO961RK0svnb/cMAvkRiSPRC3g memorial adviser+W/d2Ht6weuNUWh4Nxf4oWPbKD5t9hy1PteG7De7XQgZte9DOTt+kkAcgMBY19rJC0j1E22C7pp90m [file] 7xI3jUPWjf3Z0fR6tdW4h8gbUzDXgrkgIxVTUG+refrigerator mover [file] [facility] [file] Y4PLCkoisYu41b/8bdVIuW1XF8DfIvX2OCqdm1+ [file] Tx2S7uMJEv5nub+Pérez/QydvKj+7fbGIkJ40FZK3mA3lgq03um3lAf5yFNAbm+H4mz++xdrOYfBX357Y5 [file] noK3bA7XfyFm+aaL8WbGbVff+eaGkR1zL+2nTgjyqxZ72ZF591asUG6xy4BHfo6+switch foreman+TKZvP12RQrte [file] EUtSnCdOAUwTJYZMG21YBTfSrnP4Srg+oV0I/jose guadalupe/T [file] 3Hzk4ISiHBEdqtMTO8VRc/yyE50ZEIHuRW515pCHvZ3E/Ox/k8mBRFZjmRrpLzZ/tY/XetbpPhVX+senior business objects developer ruTG7b4rHGIsWzLnENUyg/DtYl8d8V7vate8C2CVK2 K0feWf6Bzk4oyGtp1Mnb88zoGzRVJ6ylFHmmruOO4KOHR9dFXD0V0Y3GXuOEsy4ulu2psQzx0/Z+1EsD +9dwnq9L0LenqUSNckgBEO090RItKY4N2WEzO2HKfk5zI8bm597e1Kf/ALCtTxIgv1NBhZ3bkQiTtay/ WtzVgIi0+A6XFB6Uf5czGXDo/UaFL9fv6+uzzV3+CI +MK2cw8aJlsPxYT9pTjD5NZe/owlvFn2/sbeQnIArkIf86zkdmnO/oqLNDBUD4t7dmB3pp4yz9OVsBMr iiuyHnkWkIS2RN2O1bRh1+L0AbobFiUGt3KorEV7yQJC0fVmPeomktKl2HiXYFMfUrOlZOC1VSPbZCqg TFhzpCgG696G4p8QEH/AOy3tGG2Ur3HgI6pCovl/DK esIGT57ShhOsfO0Z2XX+pNJX3S8TJCxlmncHianaokmg7eUvVoHc6ardZIrOjUk0ayJdxP4dG8gWqduu 0xBTY17Dwiks3YhtwZlpEHUeOy8vF64S760YSZzPcsTjzQCHBCQoBNKV7jeRSQff7pplx5TEv0bFBTIY R+4/MgmJWyFTHMTHx5/GZZ1KMl9qFjVm6gEQW563fw zixDYeDKbrNEtaXa/Em2uMelR9/2NAKIs2b9kyyPVCo+Oh3LbuamH90skAZqrAWpfC+x2pBxOSIluCr0 C4qa4bE2O4hpmoqR3QyrM8UxPUwtwKyArQSqE+installer inspector final/7CG7IBvVpv7FAwhp2MH08JfHxZT7CvZ1W0kf4b [file] Qwc2teKYZ/6QcIIHaD9ULgniCVuFz1ARrLEhQqkqq3DRE/QkOgJSICsjkl3phFYevqJf5kH2D9pg/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 [file] HqLpZwHTo9WRhYMqmyB1h2Xcms2ISnJO8cVEaOv4q6+65yWvTBnBk5G4vd3woM2ZHCcVz/Barron/PJD0bBL iAJ1QzRu4cyWQGiKU9EY7hECXYXMl7SaX2WD/jfSPngQ6xtkFpBA/ipjeZsRmQk65Y2O/HF42x74fC+k djL3LefqyZpsBi+RjazsSAS+31+n3Xw4swZtNEITyP aP61dA3eq5SalnOuNTFphYHzxIWxUWHlG0INEcJj+VS69evtPbOqzRX/OMjQmy0m3bt2IdRnz6hJbJex Tawbd4s7pI1+SEfJqayI/gzX4kR7WWjJnoMHCUrFyWqgmA8zIf+kQnpPrKlbFNnnQEYaiW95SJHhS/l1 ZRkdhRjW7yz0y8O4/FkKoxHdtRGUWw/7hkUIEgFHJ+ /d50D38D2WvQ6u7xQ7DDfLoPW6elK1N76vu8vrV7LfbliSlmjVIRWhdINGo/9rvfqxy7FB4AD9TmmFC5 9Fff00yRMAxam46IlBaRFfFjF5GBVMGIu8a+RTRErYBOS5LVHzfGlR5SEmA0M+rRTon4EbByRItrj8nd mFb983OU8tzJwXcTar/RjjbnDyZV859i7EVUm5yyW0 GYU4BAh7DZTCVzKG9lU5lZhHM68kp5rzeLfIY+HGeJG4gCanwAj1p2MyRfj0PuFBS1EMd4EP/LaID1nC iYeXj8qjqS/xsihDxkBUYmQkqUrHRBR2i3BdYD9eWuu90zG/V8ajjvbvSz45dveMCY50lBluHCkOeAdF WqyXLj3fVFbBDtcJd3lktHwxLHFmXDcuMvMYxY3wL9 pMqRK7/1+07bHK07rGe4bmxwhK6zxaV7kHtD/uvcL+dOFloN/lzp2AXU9olYVwrVT9SvkFCaxaJUGJ71 R5m+fuXJeiahJT7btXCDhf6WyYMAuYtmzBBA5TWvxC+LV5hUY/User Experience Researcher/7tOwxtIDfH24+5rWpZAm9tcze6L [file] iFB2xe48KQM/+l4gTw8kKd2svI6lUjtm4sCt3BtMR9TqzQ3PkVu/crop puller/4riGefJ++u6J/D9JMolXWEjk [file] 5Ri4IMcki71moGamXGr2liV+WC8luY44rVwquc164tRsEm9JZot7f0wOrLsUus/STEAM POWER PLANT OPERATOR/VU8RVBn+f0RidO [file] HEAT TREAT FURNACE OPERATOR+4Mh45Cg9m73yL84aObcZPrPb30tHUxmE+PaCAbhAfrqDGgbpxXIF9BlCZZ6/Qn3VNeSnomP8dyiI/ [file] [facility]/ytPV5WEbaz89F6vmD5arfKjjg4YogtOCx334fy3Q/xh767uHZfAeWsbYD3XzWPMSLVRRZfoYhc7f [file] +yieX2089fXrLgGV/394kKxWU2kzrjMUsmGB4+R [file] Gc4+sry+ENGLISH/95OscC7m5E6BCKPv0aELHgWEXAivMxsZtqliKUHqOd88obtLaRp7RqMvHBrhBLZbGSzMc 35zIxJWq5fw/FEUfIEBALuhZGbV8er4h7yRgTfvT0lMGxfBgav7j6pP+f5NnG9To5pOcSP8NRZrts3+n syhLy4DkakSIq9m1vPXO2DRdjTkW7jVaXfnbv3RQ4Z nG4cK33ehLdabXrevN440jN1xLOpCQb3PsmItNkZh8stTDbfOVZ7rpjIiO6Hi+ikFka8tlMzC+c2HK2o JqYNp5map/RL428d3rJS8+CyeHwrJEII8iG70Y8TZmbTrjE8gYj6QCMBtkCPN2yf6+1m+zzy6ZsokEQS K+/5CECya3RojRiYir2qIT/g97da0E4v6p+1FKPC0H nlcDdN77zx8MJaT+VKgFepGl5FdmyjweTXCqtRi2/RZa9bWOpDyUC3aVcssVfIvXaC85q7Rn76a+3NWQ wdsCoFsbG1enz4AT2TuWTaLw/gAjZxn0PvWngFFFounw2jIAYGlu1VHlkQOxQ+yGi+Y3CtwwkERq1X8+ Ogvkbk8lyDdpLt/p+NIIDH4qCD135vqjBE22QZVcXd CLV8L6DIKUuVewdYE0iX6sdZ31qoqTn7GYDn/0ViR7zBHSJX9s03Yf8be9yEDgjK/M8sFL59X+R04s87 WoSIBWn2v8qcR4Y8Urd/ELZOls/pinion polisher+CMNqkUuO0k3CQVdc/K5IBgzly5rNLdH8vUeRGMP1UmI314sNy [file] [facility] kGBZOsddyN4/rScXysvqwwoqMcFQaVzWar+CobjzQQi7+j8d7NJNANbKv0G548SUBP3ApL6wMpHIb6Y3 sg3uR7msn89/CpO5u8qNFi+Fmnasi+cg0B8OZqL5On q//rSBZffv/XkbS6/fNeKoTmdBBurqAYi0vdW84BSdniC2sXFFc/4u0GCwI00b6sErtdnZ98XG+elMf1 Bw/sS8FSMlgBmDpfKiUgR1an1bhTJfKuz0x6tr8/KvMLZFhYDua4MLki34GW+alTCuugu81Ah9ud/Bang [file] [facility]cm7kHGL0ERQ+vDKusqChohgbTjc3ORxGQn [file] EIi5OtT5RCbH96dqOMpK92Mc0ve452w+material yard clerk+4mXfm8+RQiYn4mYFhn1zVw3SPDzldy6NE/IyjPSRfvsS [file] MJSoENWSPZQOWZSZIoWNEWH9CVAmFfFvWh1fW6Dii2 PcSRBjJVCzIH7pdwTeJVOcHm9GeGaqPBLgI7T0dQOrI2sQVMLaKeYyXXF0HNSqVc7baBKcXK2XFnziX7 BgYBBmYASSXGDSAkx+XNKG89UywmMFEDcyJURyWBOtKXKiwWhPHszybZHpPRvyZWqLgapMwJibBpj8U4 Q6hFGTMzGrAj7RPMzhAMDMj69K7d7XVI4vv4TmVCQm ERsrxxFwEbjAOFgtnQDicWskHZCXNfV0VUqlNZqBAqJcOI2D ID Date Data Source [id number] 12/22/2020 12:26:00 PM EDT [facility] Name: ANGELIA ARTHUR : 1965 Age/Sex: 54F Ordering Provider: NGUYEN Marroquin Med Rec #: [id number] Reg Status: DEP REF Room #: Date of Service: 12/22/20 Report Number: [id number] cc:Valerie Tarango MD; NGUYEN Marroquin [facility] [id number] XRP/XR Chest 2 View [Pa & Lat] [...] Date/Time: 12/22/20 1053 Transcribed Date/Time: 12/22/20 1226 Mobile Mechanic: UMBERTO Name Value Range Interpretation Code Description Data Ekta rce(s) Supporting Document(s) ID Date Data Source [id number] 12/20/2020 09:28:00 PM EST [facility] Name Value Range Interpretation Code Description Data Ekta rce(s) Supporting Document(s) Ferritin 23 ng/mL 11.1-264.0 Normal (applies to non-numeric resul ts) [facility] Test Performed By: [facility] [address] [place] [address] Director: Sandra Zuñiga MD ID Date Data Source [id number] 12/20/2020 09:35:00 PM [facility] Name Value Range Interpretation Code Description Data Ekta rce(s) Supporting Document(s) Ferritin result 23 ng/mL 11.1-264.0 Normal (applies to non-numeric results) [facility] Test Performed By: [facility] [address] [place] [address] Director: Sandra Zuñiga MD ID Date Data Source [id number] 12/11/2020 08:09:00 PM EST [facility] Name Value Range Interpretation Code Description Data Ekta rce(s) Supporting Document(s) White Blood Count 4.8-10.8 Above high normal [facility] Red Blood Count 3.68-5.22 Normal (applies to non-numeric results) [facility] Hemoglobin 11.2-15.7 Normal (applies to non-numeric resul ts) [facility] Hematocrit 34.1-44.9 Normal (applies to non-numeric resul ts) [facility] Mean Corpuscular Volume 81-99 Below low normal [facility] Mean Corpuscular Hemoglobin 27.0-33.0 Below low normal [facility] Mean Corpuscular HGB Conc 32.0-36.0 Normal (applies to no n-numeric results) [facility] Red Cell Distribution Width 11.5-14.5 Above high normal [facility] Platelet Count 296 X10 3/uL 130-450 Normal (applies to non-numeric results) [facility] Mean Platelet Volume 9.5-12.7 Normal (applies to non-num salome results) [facility] Imm Grans% (AUTO) 0 % 0-2 Normal (applies to non-numeri c results) [facility] Neutrophils % (AUTO) 61 % 40-75 Normal (applies to non-num salome results) [facility] Lymphocytes % (AUTO) 31 % 21-46 Normal (applies to non-num salome results) [facility] Monocytes % (AUTO) 7 % 5-12 Normal (applies to non-numer ic results) [facility] Eosinophils % (AUTO) 1 % 1-5 Normal (applies to non-num salome results) [facility] Basophils % (AUTO) 0 % 0-1 Normal (applies to non-numer ic results) [facility] Imm Grans# (AUTO) 0.0-0.5 Normal (applies to non-numeri c results) [facility] Neutrophils # (AUTO) 1.5-8.1 Normal (applies to non-num salome results) [facility] Lymphocytes # (AUTO) 1.0-3.1 Above high normal [facility] Monocytes # (AUTO) 0.2-1.3 Normal (applies to non-numer ic results) [facility] Eosinophils# (AUTO) 0.0-0.5 Normal (applies to non-nume yahir results) [facility] Basophils # (AUTO) 0.0-0.1 Normal (applies to non-numer ic results) [facility] ID Date Data Source [id number] 12/11/2020 08:09:00 PM EST [facility] Name Value Range Interpretation Code Description Data Ekta rce(s) Supporting Document(s) Erythrocyte Sedimentation ESR 25 mm/hr 0-20 Above high normal [facility] ID Date Data Source [id number] 12/11/2020 03:50:00 PM EST [facility] Name Value Range Interpretation Code Description Data Ekta rce(s) Supporting Document(s) Sodium 142 mmol/L 137-145 Normal (applies to non-numeric resul ts) [facility] Potassium 3.5-5.1 Normal (applies to non-numeric resul ts) [facility] Chloride 107 mmol/L 98-112 Normal (applies to non-numeric resul ts) [facility] Carbon Dioxide CO2 22.0-33.0 Normal (applies to non-numer ic results) [facility] Anion Gap 4.0-11.0 Normal (applies to non-numeric resul ts) [facility] BUN 15 mg/dL 7-17 Normal (applies to non-numeric resul ts) [facility] Creatinine 0.70-1.20 Below low normal [facility] GFR >60 Normal (applies to non-numeric results) [facility] Result based on MDRD formula. Glucose Level 91 mg/dL 74-99 Normal (applies to non-numeric re sults) [facility] The reference range is only applicable w hen fasting. Calcium-Uncorrected 8.4-10.2 Normal (applies to non-nume yahir results) [facility] Corrected Calcium 8.4-10.2 Normal (applies to non-numeri c results) [facility] Bilirubin,Total 0.2-1.3 Normal (applies to non-numeric results) [facility] SGOT(AST) 23 U/L 14-36 Normal (applies to non-numeric resul ts) [facility] SGPT(ALT) 38 U/L 9-52 Normal (applies to non-numeric resul ts) [facility] Alkaline Phosphatase 112 U/L 38-126 Normal (applies to non-num salome results) [facility] can increase Alkaline Phosp le vels up to 2 times the normal adult value. Normal values for children and adolescents are 2 to 3 times the normal adult value. Total Protein 6.3-8.2 Normal (applies to non-numeric re sults) [facility] Albumin 3.5-5.0 Below low normal [facility] ID Date Data Source [id number] 12/11/2020 03:50:00 PM EST [facility] Name Value Range Interpretation Code Description Data Ekta rce(s) Supporting Document(s) C-Reactive Protein,Wide Range <3.00 Above high normal [facility] ID Date Data Source [id number] 12/06/2020 01:44:00 PM EST [facility] Name Value Range Interpretation Code Description Data Ekta rce(s) Supporting Document(s) SARS-CoV-2 RNA INHOUSE Negative Normal (applies to non-n umeric results) [facility] THIS IS A [facility] REPORTABLE COMMUNICABLE DISEASE. Testing was performed using the [employer] COVID-19 MDx Assay. This test has been [...] be found at the following links: Providers: https://www.fda.gov/media/332803/download Patients : https://www.fda.gov/media/443072/download THIS IS A [facility] REPORTABLE COMMUNICABLE DISEASE Negative results do not preclude SARS-CoV-2 infection and should not be used as the sole basis for patient management decisions. Negative results must be combined with clinical observations,patient history, and epidemiological information. ID Date Data Source [id number] 12/06/2020 07:02:00 AM EST [facility] Name Value Range Interpretation Code Description Data Ekta rce(s) Supporting Document(s) Respiratory specimen severe acute respir atory syndrome coronavirus 2 (SARS-CoV-2) RNA Negative (qualifier value) [facility] This lab was ordered by [facility] and reported by . ID Date Data Source [id number] 11/28/2020 08:38:00 AM EST [facility] Procedure Performed By: [facility] [address] [place] [address] Director: Asuncion Zuñiga MD Name Value Range Interpretation Code Description Data Ekta rce(s) Supporting Document(s) Urine Culture Normal (applies to non-numeric re sults) [facility] ID Date Data Source [id number] 11/26/2020 03:26:00 PM [facility] Name Value Range Interpretation Code Description Data Ekta rce(s) Supporting Document(s) Color,Urine Colorl-Dk Y Normal (applies to non-numeric res ults) [facility] Clarity,Urine Clear Normal (applies to non-numeric re sults) [facility] Specific [place],Urine 1.005-1.030 Normal (applies to non- numeric results) [facility] pH,Urine 5.0-8.0 Normal (applies to non-numeric resul ts) [facility] Protein,Urine Negative Normal (applies to non-numeric re sults) [facility] Glucose,Urine Negative Normal (applies to non-numeric re sults) [facility] Ketones,Urine Negative Normal (applies to non-numeric re sults) [facility] Blood,Urine Negative [facility] Bil[facility],U[facility] Negative Normal (applies to non-numeric results) [facility] Urobilinogen,Urine 0.2-1.0 Normal (applies to non-numer ic results) [facility] Leukocyte Esterase,Urine Negative Normal (applies to non -numeric results) [facility] Nitrite,Urine Negative Normal (applies to non-numeric re sults) [facility] RBC,Urine None Seen [facility] WBC,Urine None Seen Normal (applies to non-numeric resul ts) [facility] Casts,Urine None Seen Normal (applies to non-numeric resu lts) [facility] Squamous Cells,Urine None Seen [facility] Bacteria,Urine None Seen Normal (applies to non-numeric r esults) [facility] ID Date Data Source [id number] 11/15/2020 10:24:00 AM [facility] Name: ANGELIA ARTHUR : 1965 Age/Sex: 54F Ordering Provider: Nam Ryder MD Med Rec #: [id number] Reg Status: DEP REF Room #: Date of Service: 11/14/20 Report Number: [id number] cc:Valerie Tarango MD; Nam Ryder MD Send Report To: [id number] XRP/XR Chest 1 View [Pa OR Ap] Reason for exam: VENOUS ACCESS PORT CHECK FINDINGS: Left Lmfsud-v-Uqrb catheter tip identified with the tip in [...] Date/Time: 11/14/20 1701 Transcribed Date/Time: 11/15/20 1024 Mobile Mechanic: [email or web address] Name Value Range Interpretation Code Description Data Ekta rce(s) Supporting Document(s) ID Date Data Source [id number] 11/14/2020 05:06:00 PM [facility] Name Value Range Interpretation Code Description Data Ekta rce(s) Supporting Document(s) Erythrocyte Sedimentation ESR 27 mm/hr 0-20 Above high normal [facility] ID Date Data Source [id number] 11/14/2020 05:06:00 PM [facility] Name Value Range Interpretation Code Description Data Ekta rce(s) Supporting Document(s) White Blood Count 4.8-10.8 Normal (applies to non-numeri c results) [facility] Red Blood Count 3.68-5.22 Normal (applies to non-numeric results) [facility] Hemoglobin 11.2-15.7 Normal (applies to non-numeric resul ts) [facility] Hematocrit 34.1-44.9 Normal (applies to non-numeric resul ts) [facility] Mean Corpuscular Volume 81-99 Below low normal [facility] Mean Corpuscular Hemoglobin 27.0-33.0 Below low normal [facility] Mean Corpuscular HGB Conc 32.0-36.0 Normal (applies to no n-numeric results) [facility] Red Cell Distribution Width 11.5-14.5 Above high normal [facility] Platelet Count 329 X10 3/uL 130-450 Normal (applies to non-numeric results) [facility] Mean Platelet Volume 9.5-12.7 Normal (applies to non-num salome results) [facility] Imm Grans% (AUTO) 0 % 0-2 Normal (applies to non-numeri c results) [facility] Neutrophils % (AUTO) 60 % 40-75 Normal (applies to non-num salome results) [facility] Lymphocytes % (AUTO) 32 % 21-46 Normal (applies to non-num salome results) [facility] Monocytes % (AUTO) 6 % 5-12 Normal (applies to non-numer ic results) [facility] Eosinophils % (AUTO) 1 % 1-5 Normal (applies to non-num salome results) [facility] Basophils % (AUTO) 1 % 0-1 Normal (applies to non-numer ic results) [facility] Imm Grans# (AUTO) 0.0-0.5 Normal (applies to non-numeri c results) [facility] Neutrophils # (AUTO) 1.5-8.1 Normal (applies to non-num salome results) [facility] Lymphocytes # (AUTO) 1.0-3.1 Above high normal [facility] Monocytes # (AUTO) 0.2-1.3 Normal (applies to non-numer ic results) [facility] Eosinophils# (AUTO) 0.0-0.5 Normal (applies to non-nume yahir results) [facility] Basophils # (AUTO) 0.0-0.1 Normal (applies to non-numer ic results) [facility] [facility] Date Data Source [id number] 11/14/2020 12:33:00 PM EST [facility] Name Value Range Interpretation Code Description Data Ekta rce(s) Supporting Document(s) Sodium 140 mmol/L 137-145 Normal (applies to non-numeric resul ts) [facility] Potassium 3.5-5.1 Normal (applies to non-numeric resul ts) [facility] Chloride 108 mmol/L 98-112 Normal (applies to non-numeric resul ts) [facility] Carbon Dioxide CO2 22.0-33.0 Normal (applies to non-numer ic results) [facility] Anion Gap 4.0-11.0 Normal (applies to non-numeric resul ts) [facility] BUN 18 mg/dL 7-17 Above high normal [facility] Creatinine 0.70-1.20 Below low normal [facility] GFR >60 Normal (applies to non-numeric results) [facility] Result based on MDRD formula. Glucose Level 96 mg/dL 74-99 Normal (applies to non-numeric re sults) [facility] The reference range is only applicable w hen fasting. Calcium-Uncorrected 8.4-10.2 Normal (applies to non-nume yahir results) [facility] Corrected Calcium 8.4-10.2 Normal (applies to non-numeri c results) [facility] Bilirubin,Total 0.2-1.3 Normal (applies to non-numeric results) [facility] SGOT(AST) 26 U/L 14-36 Normal (applies to non-numeric resul ts) [facility] SGPT(ALT) 44 U/L 9-52 Normal (applies to non-numeric resul ts) [facility] Alkaline Phosphatase 127 U/L 38-126 Above high normal [facility] can increase Alkaline Phosp le vels up to 2 times the normal adult value. Normal values for children and adolescents are 2 to 3 times the normal adult value. Total Protein 6.3-8.2 Normal (applies to non-numeric re sults) [facility] Albumin 3.5-5.0 Normal (applies to non-numeric resul ts) [facility] ID Date Data Source [id number] 11/14/2020 12:33:00 PM EST [facility] Name Value Range Interpretation Code Description Data Ekta rce(s) Supporting Document(s) C-Reactive Protein,Wide Range <3.00 Above high normal [facility] ID Date Data Source [id number] 11/08/2020 02:04:00 PM EST [facility] Name Value Range Interpretation Code Description Data Ekta rce(s) Supporting Document(s) SARS-CoV-2 RNA INHOUSE Negative Normal (applies to non-n umeric results) [facility] THIS IS A [facility] REPORTABLE COMMUNICABLE DISEASE. Testing was performed using the [employer] COVID-19 MDx Assay. This test has been [...] be found at the following links: Providers: https://www.fda.gov/media/869530/download Patients : https://www.fda.gov/media/828472/download THIS IS A [facility] REPORTABLE COMMUNICABLE DISEASE Negative results do not preclude SARS-CoV-2 infection and should not be used as the sole basis for patient management decisions. Negative results must be combined with clinical observations,patient history, and epidemiological information. ID Date Data Source [id number] 11/07/2020 10:02:00 AM [facility] Name Value Range Interpretation Code Description Data Ekta rce(s) Supporting Document(s) Respiratory specimen severe acute respir atory syndrome coronavirus 2 (SARS-CoV-2) RNA Negative (qualifier value) [facility] This lab was ordered by [facility] and reported by . ID Date Data Source [id number] 11/02/2020 10:22:[address] [facility] Name: ANGELIA ARTHUR [facility] Rec #: [id number] : 1965 Age/Sex: 54F Date of Service: 11/02/20 DISPOSITION SUMMARY Discharge Summary [facility] Name:Angelia Arthur [facility] Age:54 yrs Sex:Female [...] done on Nov.18. <span> You may use [id number] Tylenol and ibuprofen for pain control at [...] rce(s) Supporting Document(s) ID Date Data Source [id number] 11/02/2020 10:22:[address] [facility] Name: ANGELIA ARTHUR [facility] Rec #: [id number] : 1965 Age/Sex: 54F Date of Service: 11/02/20 PHYSICIAN CHART Physician Documentation [facility] Name: Angelia Arthur Age: 54 yrs Sex: [...] to communication noted, The patient speaks fluent [place]. ROS: 12:54 Constitutional: Negative for fever, chills, [...] 15:05 mmo 11/02 15:06 Interpretation: TSH 1.120. [facility] 11/02 10:58 Order name: Free T4 (free Thyroxine); Complete Time: 15:05 o 11/02 15:12 Interpretation: FreeT4 1.16. o 11/02 10:54 Order name: Cardiology EKG Interpretation - Choose Reason mmo for Test 11/02 10:58 Order name: Free T3 (tri-Iodothyronine); Complete Time: mmo 15:05 11/02 15:12 Interpretation: Free T3 2.78. o 11/02 11:09 Order name: Renal - [place] [facility] 11/02 11:31 Order name: Ct Abdomen & Pelvis with Con o 11/02 11:31 Order name: Beta Hcg,Qualitative; Complete Time: 14:56 o 11/02 14:56 Interpretation: Beta HCG,Screen Negative. [facility] 11/02 10:54 Order name: Collect Urine - [...] rce(s) Supporting Document(s) ID Date Data Source [id number] 11/02/2020 10:22:[address] [facility] Name: ANGELIA ARTHUR [facility] Rec #: [id number] : 1965 Age/Sex: 54F Date of Service: 11/02/20 NURSE CHART Nurse's Notes [facility] Name: Angelia Arthur Age: 54 yrs Sex: [...] to communication noted, The patient speaks fluent [place]. Vital Signs: 10:33 BP 210 / 100; [...] reach, sj Side rails up X 1. residential monitor on. Pulse on is on. NIBP on. [...] Name Value Range Interpretation Code Description Data [facility] rce(s) Supporting Document(s) ID Date Data Source [id number] 11/02/2020 03:02:00 PM EST [facility] Name Value Range Interpretation Code Description Data [facility] rce(s) Supporting Document(s) Sodium 138 mmol/L 137-145 Normal (applies to non-numeric resul ts) [facility] Potassium 3.5-5.1 Normal (applies to non-numeric resul ts) [facility] Chloride 108 mmol/L 98-112 Normal (applies to non-numeric resul ts) [facility] Carbon Dioxide CO2 22.0-33.0 Normal (applies to non-numer ic results) [facility] Anion Gap 4.0-11.0 Below low normal [facility] BUN 13 mg/dL 7-17 Normal (applies to non-numeric resul ts) [facility] Creatinine 0.70-1.20 Below low normal [facility] GFR >60 Normal (applies to non-numeric results) [facility] Result based on MDRD formula. Glucose Level 82 mg/dL 74-99 Normal (applies to non-numeric re sults) [facility] The reference range is only applicable w hen fasting. Calcium-Uncorrected 8.4-10.2 Normal (applies to non-nume yahir results) [facility] Corrected Calcium 8.4-10.2 Normal (applies to non-numeri c results) [facility] Bilirubin,Total 0.2-1.3 Normal (applies to non-numeric results) [facility] SGOT(AST) 15 U/L 14-36 Normal (applies to non-numeric resul ts) [facility] SGPT(ALT) 40 U/L 9-52 Normal (applies to non-numeric resul ts) [facility] Alkaline Phosphatase 109 U/L 38-126 Normal (applies to non-num salome results) [facility] can increase Alkaline Phosp le vels up to 2 times the normal adult value. Normal values for children and adolescents are 2 to 3 times the normal adult value. Total Protein 6.3-8.2 Normal (applies to non-numeric re sults) [facility] Albumin 3.5-5.0 Below low normal [facility] ID Date Data Source [id number] 11/02/2020 03:02:00 PM EST [facility] Name Value Range Interpretation Code Description Data Ekta rce(s) Supporting Document(s) Lipase 99 U/L 73-393 Normal (applies to non-numeric resul ts) [facility] ID Date Data Source [id number] 11/02/2020 03:00:00 PM [facility] Name Value Range Interpretation Code Description Data Ekta rce(s) Supporting Document(s) Free T4 (Free Thyroxine) 0.76-1.46 Normal (applies to non -numeric results) [facility] ID Date Data Source [id number] 11/02/2020 03:00:00 PM [facility] Name Value Range Interpretation Code Description Data Ekta rce(s) Supporting Document(s) Free T3 2.18-3.98 Normal (applies to non-numeric resul ts) [facility] ID Date Data Source [id number] 11/02/2020 03:00:00 PM [facility] Value Range Interpretation Code Description Data Ekta rce(s) Supporting Document(s) Thyroid Stimulate Hormone TSH 0.358-3.740 No rmal (applies to non-numeric results) [facility] ID Date Data Source [id number] 11/02/2020 02:38:00 PM EST [facility] Name Value Range Interpretation Code Description Data Ekta rce(s) Supporting Document(s) Beta HCG Screen,Qualitative Negative Normal (appli es to non-numeric results) [facility] ID Date Data Source [id number] 11/03/2020 10:12:00 AM [facility] Name: ANGELIA ARTHUR : 1965 Age/Sex: 54F Ordering Provider: NGUYEN Abbott [facility] Rec #: [id number] Reg Status: [facility] ER Room #: Date of Service: 11/02/20 Report Number: [id number] cc:Valerie Tarango MD Send Report To: [id number] CT/CT Abdomen & Pelvis w Con Reason [...] Date/Time: 11/02/20 1407 Transcribed Date/Time: 11/03/20 1012 Mobile Mechanic: [email or web address] Name Value Range Interpretation Code Description Data Ekta rce(s) Supporting Document(s) ID Date Data Source [id number] 11/02/2020 05:07:[address] [facility] Name: ANGELIA ARTHUR : 1965 Age/Sex: 54F Ordering Provider: NGUYEN Abbott [facility] Rec #: [id number] Reg Status: [facility] Room #: Date of Service: 11/02/20 Report Number: [id number] cc:Valerie Tarango MD; Nancy Green MD; NGUYEN Abbott Send Report To: [id number] US/US Renal Ultrasound Reason for exam: LEFT [...] Date/Time: 11/02/20 1235 Transcribed Date/Time: 11/02/20 1707 Mobile Mechanic: [email or web address] Name Value Range Interpretation Code Description Data Ekta rce(s) Supporting Document(s) ID Date Data Source [id number] 11/02/2020 01:31:00 PM EST [facility] Name Value Range Interpretation Code Description Data Ekta rce(s) Supporting Document(s) White Blood Count 4.8-10.8 Normal (applies to non-numeri c results) [facility] Red Blood Count 3.68-5.22 Normal (applies to non-numeric results) [facility] Hemoglobin 11.2-15.7 Normal (applies to non-numeric resul ts) [facility] Hematocrit 34.1-44.9 Normal (applies to non-numeric resul ts) [facility] Mean Corpuscular Volume 81-99 Below low normal [facility] Mean Corpuscular Hemoglobin 27.0-33.0 Below low normal [facility] Mean Corpuscular HGB Conc 32.0-36.0 Normal (applies to no n-numeric results) [facility] Red Cell Distribution Width 11.5-14.5 Above high normal [facility] Platelet Count 328 X10 3/uL 130-450 Normal (applies to non-numeric results) [facility] Mean Platelet Volume 9.5-12.7 Normal (applies to non-num salome results) [facility] Imm Grans% (AUTO) 0 % 0-2 Normal (applies to non-numeri c results) [facility] Neutrophils % (AUTO) 61 % 40-75 Normal (applies to non-num salome results) [facility] Lymphocytes % (AUTO) 32 % 21-46 Normal (applies to non-num salome results) [facility] Monocytes % (AUTO) 6 % 5-12 Normal (applies to non-numer ic results) [facility] Eosinophils % (AUTO) 1 % 1-5 Normal (applies to non-num salome results) [facility] Basophils % (AUTO) 0 % 0-1 Normal (applies to non-numer ic results) [facility] Imm Grans# (AUTO) 0.0-0.5 Normal (applies to non-numeri c results) [facility] Neutrophils # (AUTO) 1.5-8.1 Normal (applies to non-num salome results) [facility] Lymphocytes # (AUTO) 1.0-3.1 Above high normal [facility] Monocytes # (AUTO) 0.2-1.3 Normal (applies to non-numer ic results) [facility] Eosinophils# (AUTO) 0.0-0.5 Normal (applies to non-nume yahir results) [facility] Basophils # (AUTO) 0.0-0.1 Normal (applies to non-numer ic results) [facility] ID Date Data Source [id number] 11/02/2020 11:46:00 AM EST [facility] Name Value Range Interpretation Code Description Data Ekta rce(s) Supporting Document(s) Color,Urine Yellow Normal (applies to non-numeric resu lts) [facility] Clarity,Urine Clear Normal (applies to non-numeric re sults) [facility] Specific [place],Urine 1.001-1.030 Normal (applies to non- numeric results) [facility] PH,Urine 5.0-8.0 Normal (applies to non-numeric resul ts) [facility] Protein,Urine Negative Normal (applies to non-numeric re sults) [facility] Glucose,Urine (UA) Negative Normal (applies to non-numer ic results) [facility] Ketones,Urine Negative Normal (applies to non-numeric re sults) [facility] Blood,Urine Negative Normal (applies to non-numeric resu lts) [facility] Bilirubin,Urine Negative Normal (applies to non-numeric results) [facility] Urobilinogen,Urine Norm 0.2-1 Normal (applies to non-numer ic results) [facility] Leukocyte Esterase,Urine Negative Normal (applies to non -numeric results) [facility] Nitrite,Urine Negative Normal (applies to non-numeric re sults) [facility] ID Date Data Source [id number] 11/04/2020 06:09:00 PM [facility] Name: ANGELIA ARTHUR : 1965 Age/Sex: 54F Ordering Provider: NGUYEN Abbott Med Rec #: [id number] Reg Status:[facility] ER Room #: Date of Service: 11/02/20 Report Number: [id number] cc: Valerie Tarango MD; NGUYEN Abbott Send Report To: Reason for exam: ABDOMINAL PAIN SINUS RHYTHM LOW QRS VOLTAGE IN PRECORDIAL LEADS BORDERLINE ECG Physician Ghost Writer: Dr. Delmar Miller M.D. ECG HEART RATE: 88 /min ECG RR INTERVAL: 675 ms ECG P DURATION: 118 ms ECG QRS DURATION: 85 ms ECG LA INTERVAL: 162 ms ECG QT INTERVAL: 339 ms ECG QTC INTERVAL: 388 ms Q-T dispersion: ms ECG P AXIS: 47 deg ECG QRS AXIS: 44 deg ECG T AXIS: 43 deg REPORT SIGNATURE ON FILE 11/04/201808 Reported By: Delmar Miller MD <<Signature on File>> Exam Date/Time: 11/02/20 1041 Order #: [id number] Dictation Date/Time: 11/04/201808 Transcribed Date/Time: 11/04/201808 Mobile Mechanic: VALDO Name Value Range Interpretation Code Description Data Ekta rce(s) Supporting Document(s) ID Date Data Source [id number] 10/24/2020 11:08:00 AM [facility] Name Value Range Interpretation Code Description Data Ekta rce(s) Supporting Document(s) Vitamin E result 5.5 - 17.0 Normal (applies to non-numeric results) [facility] ADDITIONAL INFORMATIO N This test was developed and its performance characteristics determined by [facility] in a manner consistent with CLIA requirements. This test has not been cleared or approved by the U.S. Food and Drug Administration. Test Performed by: [facility] [place] [address] Customer Technical Services Manager: Willi Rendon M.D. Ph.D.; CLIA# [id number] ID Date Data Source [id number] 10/24/2020 11:08:00 AM [facility] Name Value Range Interpretation Code Description Data Ekta rce(s) Supporting Document(s) Vitamin K result 0.10-2.20 Normal (applies to non-numeric results) [facility] ADDITIONAL INFORMATIO N This test was developed and its performance characteristics determined by [facility] in a manner consistent with CLIA requirements. This test has not been cleared or approved by the U.S. Food and Drug Administration. Test Performed by: [facility] [place] [address] Customer Technical Services Manager: Willi Rendon M.D. Ph.D.; CLIA# [id number] ID Date Data Source [id number] 10/22/2020 10:36:00 PM [facility] Value Range Interpretation Code Description Data Ekta rce(s) Supporting Document(s) Free Retinol(Vit A) result 32.5-78.0 Normal (applie s to non-numeric results) [facility] ADDITIONAL INFORMATIO N This test was developed and its performance characteristics determined by [facility] in a manner consistent with CLIA requirements. This test has not been cleared or approved by the U.S. Food and Drug Administration. Test Performed by: [facility] [place] [address] Customer Technical Services Manager: Willi Rendon M.D. Ph.D.; CLIA# [id number] ID Date Data Source [id number] 10/18/2020 08:16:00 PM [facility] Name Value Range Interpretation Code Description Data Ekta rce(s) Supporting Document(s) Vitamin D,Total (25OH) 30.0-100.0 Below low normal [facility] Reference Range: <10 ng/mL: Deficien t 10-30 ng/mL: Insufficient 30-100 ng/mL: Sufficient >100 ng/mL: Toxicity possible ID Date Data Source [id number] 10/18/2020 03:27:00 PM [facility] Name Value Range Interpretation Code Description Data Ekta rce(s) Supporting Document(s) Vitamin B12 193-986 Above high normal [facility] ID Date Data Source [id number] 10/18/2020 03:27:00 PM [facility] Name Value Range Interpretation Code Description Data Ekta rce(s) Supporting Document(s) Thyroid Stimulate Hormone TSH 0.358-3.740 No rmal (applies to non-numeric results) [facility] ID Date Data Source [id number] 10/18/2020 02:45:00 PM [facility] Name Value Range Interpretation Code Description Data Ekta rce(s) Supporting Document(s) White Blood Count 4.8-10.8 Above high normal [facility] Red Blood Count 3.68-5.22 Normal (applies to non-numeric results) [facility] Hemoglobin 11.2-15.7 Normal (applies to non-numeric resul ts) [facility] Hematocrit 34.1-44.9 Normal (applies to non-numeric resul ts) [facility] Mean Corpuscular Volume 81-99 Below low normal [facility] Mean Corpuscular Hemoglobin 27.0-33.0 Normal (appli es to non-numeric results) [facility] Mean Corpuscular HGB Conc 32.0-36.0 Normal (applies to no n-numeric results) [facility] Red Cell Distribution Width 11.5-14.5 Above high normal [facility] Platelet Count 299 X10 3/uL 130-450 Normal (applies to non-numeric results) [facility] Mean Platelet Volume 9.5-12.7 Normal (applies to non-num salome results) [facility] Imm Grans% (AUTO) 0 % 0-2 Normal (applies to non-numeri c results) [facility] Neutrophils % (AUTO) 65 % 40-75 Normal (applies to non-num salome results) [facility] Lymphocytes % (AUTO) 26 % 21-46 Normal (applies to non-num salome results) [facility] Monocytes % (AUTO) 7 % 5-12 Normal (applies to non-numer ic results) [facility] Eosinophils % (AUTO) 1 % 1-5 Normal (applies to non-num salome results) [facility] Basophils % (AUTO) 0 % 0-1 Normal (applies to non-numer ic results) [facility] Imm Grans# (AUTO) 0.0-0.5 Normal (applies to non-numeri c results) [facility] Neutrophils # (AUTO) 1.5-8.1 Above high normal C [facility] Lymphocytes # (AUTO) 1.0-3.1 Above high normal C [facility] Monocytes # (AUTO) 0.2-1.3 Normal (applies to non-numer ic results) [facility] Eosinophils# (AUTO) 0.0-0.5 Normal (applies to non-nume yahir results) [facility] Basophils # (AUTO) 0.0-0.1 Normal (applies to non-numer ic results) [facility] ID Date Data Source [id number] 10/18/2020 02:45:00 PM EST [facility] Name Value Range Interpretation Code Description Data Ekta rce(s) Supporting Document(s) Erythrocyte Sedimentation ESR 10 mm/hr 0-20 No rmal (applies to non-numeric results) [facility] ID Date Data Source [id number] 10/18/2020 02:43:00 PM EST [facility] Name Value Range Interpretation Code Description Data Ekta rce(s) Supporting Document(s) Hemoglobin A1C % Less than 5.7% Above high normal [facility] HBA1C: Normal: Less than 5.7% Prediabetes: 5.7% to 6.4% Diabetes: 6.5% or higher HA1C % vs Estimated Average Glucose (eAG) % eAG % eAG 6% 126 mg/dL 10% 240 mg/dL 7% 154 mg/dL 11% 269 mg/dL 8% 183 mg/dL 12% 298 mg/dL 9% 212 mg/dL Reference: [place] [employer], 2017 ID Date Data Source [id number] 10/18/2020 02:35:00 PM EST [facility] Name Value Range Interpretation Code Description Data Ekta rce(s) Supporting Document(s) Sodium 142 mmol/L 137-145 Normal (applies to non-numeric resul ts) [facility] Potassium 3.5-5.1 Normal (applies to non-numeric resul ts) [facility] Chloride 110 mmol/L 98-112 Normal (applies to non-numeric resul ts) [facility] Carbon Dioxide CO2 22.0-33.0 Normal (applies to non-numer ic results) [facility] Anion Gap 4.0-11.0 Normal (applies to non-numeric resul ts) [facility] BUN 15 mg/dL 7-17 Normal (applies to non-numeric resul ts) [facility] Creatinine 0.70-1.20 Below low normal [facility] GFR >60 Normal (applies to non-numeric results) [facility] Result based on MDRD formula. Glucose Level 82 mg/dL 74-99 Normal (applies to non-numeric re sults) [facility] The reference range is only applicable w hen fasting. Calcium-Uncorrected 8.4-10.2 Normal (applies to non-nume yahir results) [facility] Corrected Calcium 8.4-10.2 Normal (applies to non-numeri c results) [facility] Bilirubin,Total 0.2-1.3 Normal (applies to non-numeric results) [facility] SGOT(AST) 23 U/L 14-36 Normal (applies to non-numeric resul ts) [facility] SGPT(ALT) 40 U/L 9-52 Normal (applies to non-numeric resul ts) [facility] Alkaline Phosphatase 117 U/L 38-126 Normal (applies to non-num salome results) [facility] can increase Alkaline Phosp le vels up to 2 times the normal adult value. Normal values for children and adolescents are 2 to 3 times the normal adult value. Total Protein 6.3-8.2 Normal (applies to non-numeric re sults) [facility] Albumin 3.5-5.0 Below low normal [facility] ID Date Data Source [id number] 10/18/2020 02:35:00 PM [facility] Name Value Range Interpretation Code Description Data Ekta rce(s) Supporting Document(s) C-Reactive Protein,Wide Range <3.00 Above high normal [facility] ID Date Data Source [id number] 10/16/2020 03:20:[address] [facility] Name: ANGELIA ARTHUR [facility] Rec #: [id number] : 1965 Age/Sex: 54F Date of Service: 10/16/20 DISPOSITION SUMMARY Discharge Summary [facility] Name:Angelia Arthur [facility] Age:54 yrs Sex:Female [...] rce(s) Supporting Document(s) ID Date Data Source [id number] 10/16/2020 03:20:[address] [facility] Name: [facility] [facility] [id number] : 1965 Age/Sex: 54F Date of Service: 10/16/20 PHYSICIAN CHART Physician Documentation [facility] Name: Angelia Arthur Age: 54 yrs Sex: Female : 1965 Arrival Date: 10/16/2020 Time: 15:20 Bed EDRU-1 Private MD: Valerie Tarango L ED Physician Ondina Mcrae HPI: 10/16 16:06 This 54 yrs old Female presents to ER via Walk-In [facility] with complaints of High Blood Pressure, Back Pain, Headache > 24hrs Old, Shortness Of Breath. 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 18:06 I reviewed Angelia's past history of pulmonary embolus: [facility] She developed a PE in 2017 after receiving IVIG therapy, although it was never determined whether that was related. She was on anticoagulants for several months which she has since discontinued. She was being worked up by hematology for clotting disorder, but says that all of the investigations were never completed.. 20:52 I reviewed past radiology studies: An x-ray of the L-spine [facility] 07/29/2021 showed degenerative joint disease. CT chest 05/10/2020 was normal. Gallbladder ultrasound 03/04/2019 showed a normal gallbladder with no stones.. 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 - Social History: Preferred Language: British Smoking status (Tobacco): Patient states they are a former tobacco smoker, quit smoking 20 years ago. ROS: 16:43 Chest See HPI. Cardiovascular: See HPI. Respiratory: See bjh HPI. Back: See HPI. Neuro: See HPI. All other systems are negative. Exam: 16:43 Head/Face: Normocephalic, atraumatic. Eyes: Pupils equal [facility] round and reactive to light, extra-ocular motions [...] Other Rate 87 bpm. Normal axis. Normal LA 159 ms, normal QRS 88 ms, normal QTC 392 ms. There is no abnormal ST elevation or depression and T waves are normal. No premature beats. There is no old EKG available for comparison at this time. 20:39 Patient medically screened. [facility] 20:43 Data reviewed: vital signs, nurses notes, lab test [facility] result(s), EKG, radiologic studies, CT scan, plain [...] Order name: Comprehensive Metabolic Prof.; Complete Time: [facility] 17:55 10/16 17:55 Interpretation: Abnormal: CREAT 0.67; ALK PHOS 129. [facility] 10/16 16:34 Order name: Lip ase; Complete Time: 17:55 [facility] 10/16 17:55 Interpretation: Within normal limits: LIP 109. [facility] 10/16 16:34 Order name: MG (Magnesium); Complete Time: 17:55 [facility] 10/16 17:55 Interpretation: Within normal limits: MG 2.00. [facility] 10/16 16:34 Order name: Partial Thromboplastin Time; Complete Time: [facility] 17:55 10/16 17:56 Interpretation: Within normal limits: PTT 27.6. [facility] 10/16 16:34 Order name: Prothrombin Time; Complete Time: 17:55 [facility] 10/16 17:56 Interpretation: Within normal limits: PT 11.9. [facility] 10/16 16:34 Order name: Troponin I; Complete Time: 17:56 [facility] 10/16 17:56 Interpretation: Within normal limits: TROP I < 0.045. [facility] 10/16 16:34 Order name: CXR Portable (Chest Pain); Complete Time: 17:40 [facility] 10/16 16:34 Order name: Emergency Room EKG Order - Use EKG Work-Up [facility] /Quick Select; Complete Time: 16:46 10/16 16:34 Order name: Cardiology EKG Interpretation - Choose Reason [facility] for Test 10/16 16:34 Order name: Iv Saline Lock; Complete Time: 17:15 [facility] 10/16 18:05 Order name: CT Chest for PE with contrast (choose symptom); [facility] Complete Time: 21:50 10/16 21:50 Interpretation: No acute disease. [facility] 10/16 20:39 Order name: UA.; Complete Time: 09:58 [facility] 10/17 09:58 Interpretation: Within normal limits. [facility] 10/16 16:34 Order name: Place Patient On Monitor; Complete Time: 17:15 [facility] 10/16 16:38 Order name: Vital Signs - Recheck: Blood pressure only ; [facility] Complete Time: 17:15 10/16 20:39 Order name: Collect Urine - Clean Catch; Complete Time: [facility] 20:45 Dispensed Medications: 16:46 Drug: Ventolin 2 puffs [Ventolin HFA 90 mcg/actuation awr aerosol inhaler (2 puffs)] Route: Inhalation; 17:00 Follow up: Response: Symptoms have improved. 3 Disposition Summary: 10/16/20 20:39 Discharge Ordered Location: Home/Self Care [facility] Condition: Good [facility] Diagnosis - Acute Upper Back Pain, Thoracic h Followup: [facility] - With: Valerie Tarango MD - When: As needed - Reason: If symptoms persist Followup: [facility] - With: Emergency Department - When: As needed - Reason: Worsening of condition Discharge Instructions: - Discharge Summary Sheet [facility] - Thoracic Strain [facility] Fo yolanda: - Medication Reconciliation [facility] Signatures: Dispatcher [employer] Jeannette Basilio RN RN cmm Healey, Brenda, MD MD [facility] Ainsley Servin RN RN jc3 William Mckenna RN RN awr Lent, Meade, NP NP mel Corrections: (The following items were deleted from the chart) 15:39 15:34 PMHx: rls; cmm cmm 16:42 16:06 PMH PSORIATIC ARTHRITIS, CHRONIC BACK PAIN S/P SPINAL [facility] FUSION, LUPUS, MYASTHENIA GRAVIS, GERD, LIVER FAILURE, PE. . [facility] 16:43 16:06 PMH PSORIATIC ARTHRITIS, CHRONIC BACK [...] was sent to the ER by her storage management architect after several blood pressure readings at home [...] catheterization 4 to [address] [place]: According to the patient there were no vessel blockages and she did not require stents.. [facility] Name Value Range Interpretation Code Description Data Ekta rce(s) Supporting Document(s) ID Date Data Source [id number] 10/16/2020 03:20:[address] [facility] Name: ANGELIA ARTHUR [facility] Rec #: [id number] : 1965 Age/Sex: 54F Date of Service: 10/16/20 NURSE CHART Nurse's Notes [facility] Name: Angelia Arthur Age: 54 yrs Sex: Female : 1965 Arrival Date: 10/16/2020 Time: 15:20 Bed EDRU-1 Private MD: Valerie Tarango L Diagnosis: Acute Upper Back Pain, Thoracic Presentation: 10/16 15:21 Transition of care: patient was not received from another [facility] setting of care. Presenting complaint: Patient states - States is Covid Positive . States Her Blood Pressure was 188/111 on phone call with Her Business Account Leader and was told to come to ED [...] SOB present. 15:21 Method Of Arrival: Walk-In [facility] 15:21 Acuity: Urgent - 3 [facility] Triage Assessment: 15:24 Suicide Screening: Have you had thoughts of harming [facility] yourself or others? No. The patient appears [...] patient states the pain began 1weeks ago. 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 - Social History: Preferred Language: British Smoking status (Tobacco): Patient states they are [...] no risk. Assessment: 15:54 See Triage Assessment. [facility] Vital Signs: 15:30 BP 133 / 82 [...] 15:21 Valerie Tarango MD is Private Physician. [facility] 15:24 Triage completed. [facility] 15:24 Jonathan Hahn NP is PHCP. darcy [...] 15:45 Ondina Mcrae MD is Attending Physician. [facility] 16:40 An EKG was obtained and reviewed by Ondina Mcrae MD. awr 16:46 Radiology: a portable X-ray was completed at 16:46. awr 16:46 Cardiology EKG Interpretation - Choose Reason for Test Sent.awr 16:46 CXR Portable (Chest Pain) Sent. awr 17:14 Labs drawn by ED staff. Inserted peripheral IV: 20 gauge in awr palmar aspect of left wrist and blood collected. 17:15 residential monitor on. awr 18:55 Radiology: The patient went to get his/her CT at 18:55. jc3 18:55 No procedures ordered. jc3 18:55 CT Chest for PE with contrast (choose symptom) Sent. jc3 19:12 Radiology: Patient returned from CT at 19:12. jc3 20:00 Diet: Patient given water. 3 20:38 Valerie Tarango MD is Referral Physician. [facility] 20:42 Urine collected. Clean catch specimen. jc3 20:54 Discontinued IV lock intact, bleeding controlled, pressure jc3 dressing applied, No redness/swelling at site. Administered Medications: 16:46 Drug: Ventolin 2 puffs [Ventolin HFA 90 mcg/actuation awr aerosol inhaler (2 puffs)] Route: Inhalation; 17:00 Follow up: Response: Symptoms have improved. 3 Outcome: 20:39 Discharge ordered by MD. [facility] 20:54 Reassessment: No Change in symptoms. 3 [...] RN RN cmm Healey, Brenda, MD MD [facility] Ainsley Servin RN RN jc3 Destiney Arrieta RN RN md1 Wililam Mckenna RN RN awr Lent, Meade, STEAM POWER PLANT OPERATOR STEAM POWER PLANT OPERATOR darcy Groves, Bessie tb6 Corrections: (The following items were deleted from the chart) 10/16 15:27 15:21 Presenting complaint: Patient states - States is cmm Covid Positive . States Her Blood Pressure was 18 8/111 on phone call with Her Business Account Leader and was told to come to ED for evaluation. States is short of breath also cmm 15:39 15:34 PMHx: rls; cmm cmm Name Value Range Interpretation Code Description Data Ekta rce(s) Supporting Document(s) ID Date Data Source [id number] 10/16/2020 10:58:00 PM [facility] Name Value Range Interpretation Code Description Data Ekta rce(s) Supporting Document(s) Color,Urine Yellow Normal (applies to non-numeric resu lts) [facility] Clarity,Urine Clear Normal (applies to non-numeric re sults) [facility] Specific [place],Urine 1.001-1.030 Normal (applies to non- numeric results) [facility] PH,Urine 5.0-8.0 Normal (applies to non-numeric resul ts) [facility] Protein,Urine Negative Normal (applies to non-numeric re sults) [facility] Glucose,Urine (UA) Negative Normal (applies to non-numer ic results) [facility] Ketones,Urine Negative Normal (applies to non-numeric re sults) [facility] Blood,Urine Negative Normal (applies to non-numeric resu lts) [facility] Bilirubin,Urine Negative Normal (applies to non-numeric results) [facility] Urobilinogen,Urine Norm 0.2-1 Normal (applies to non-numer ic results) [facility] Leukocyte Esterase,Urine Negative Normal (applies to non -numeric results) [facility] Nitrite,Urine Negative Normal (applies to non-numeric re sults) [facility] ID Date Data Source [id number] 10/17/2020 01:33:00 PM [facility] Name: ANGELIA ARTHUR : 1965 Age/Sex: 54F Ordering Provider: Ondina Mcrae MD Med Rec #: [id number] Reg Status: [facility] Room #: Date of Service: 10/16/20 Report Number: [id number] cc:Ondina Mcrae MD; Valerie Tarango MD Send Report To: [id number] CT/CT Chest for PE with Contrast Reason [...] Dictation Date/Time: 10/16/202028 Transcribed Date/Time: 10/17/20 1333 Mobile Mechanic: LUAN Name Value Range Interpretation Code Description Data Ekta rce(s) Supporting Document(s) ID Date Data Source [id number] 10/16/2020 05:56:00 PM [facility] Value Range Interpretation Code Description Data Ekta rce(s) Supporting Document(s) Troponin I 0.000-0.045 Normal (applies to non-numeric resu lts) [facility] ID Date Data Source [id number] 10/16/2020 05:54:00 PM [facility] Name Value Range Interpretation Code Description Data Ekta rce(s) Supporting Document(s) PT 9.4-12.5 Normal (applies to non-numeric results) [facility] INR Normal (applies to non-numeric results) [facility] The use of the INR is restricted to roger ents on stable oral anticoagulant. Therapeutic Range: 2.0-3.0 High Risk Values: 2.5-3.5 ID Date Data Source [id number] 10/16/2020 05:54:00 PM [facility] Name Value Range Interpretation Code Description Data Ekta rce(s) Supporting Document(s) PTT 25.1-36.5 Normal (applies to non-numeric resul ts) [facility] ID Date Data Source [id number] 10/16/2020 05:54:00 PM EST [facility] Name Value Range Interpretation Code Description Data Ekta rce(s) Supporting Document(s) Sodium 140 mmol/L 137-145 Normal (applies to non-numeric resul ts) [facility] Potassium 3.5-5.1 Normal (applies to non-numeric resul ts) [facility] Chloride 107 mmol/L 98-112 Normal (applies to non-numeric resul ts) [facility] Carbon Dioxide CO2 22.0-33.0 Normal (applies to non-numer ic results) [facility] Anion Gap 4.0-11.0 Normal (applies to non-numeric resul ts) [facility] BUN 16 mg/dL 7-17 Normal (applies to non-numeric resul ts) [facility] Creatinine 0.70-1.20 Below low normal [facility] GFR >60 Normal (applies to non-numeric results) [facility] Result based on MDRD formula. Glucose Level 86 mg/dL 74-99 Normal (applies to non-numeric re sults) [facility] The reference range is only applicable w hen fasting. Calcium-Uncorrected 8.4-10.2 Normal (applies to non-nume yahir results) [facility] Corrected Calcium 8.4-10.2 Normal (applies to non-numeri c results) [facility] Bilirubin,Total 0.2-1.3 Normal (applies to non-numeric results) [facility] SGOT(AST) 25 U/L 14-36 Normal (applies to non-numeric resul ts) [facility] SGPT(ALT) 41 U/L 9-52 Normal (applies to non-numeric resul ts) [facility] Alkaline Phosphatase 129 U/L 38-126 Above high normal [facility] can increase Alkaline Phosp le vels up to 2 times the normal adult value. Normal values for children and adolescents are 2 to 3 times the normal adult value. Total Protein 6.3-8.2 Normal (applies to non-numeric re sults) [facility] Albumin 3.5-5.0 Normal (applies to non-numeric resul ts) [facility] ID Date Data Source [id number] 10/16/2020 05:54:00 PM EST [facility] Name Value Range Interpretation Code Description Data Ekta rce(s) Supporting Document(s) Magnesium 1.80-2.40 Normal (applies to non-numeric resul ts) [facility] ID Date Data Source [id number] 10/16/2020 05:54:00 PM EST [facility] Name Value Range Interpretation Code Description Data Ekta rce(s) Supporting Document(s) Lipase 109 U/L 73-393 Normal (applies to non-numeric resul ts) [facility] ID Date Data Source [id number] 10/16/2020 05:38:00 PM EST [facility] Name Value Range Interpretation Code Description Data Ekta rce(s) Supporting Document(s) White Blood Count 4.8-10.8 Above high normal [facility] Red Blood Count 3.68-5.22 Normal (applies to non-numeric results) [facility] Hemoglobin 11.2-15.7 Normal (applies to non-numeric resul ts) [facility] Hematocrit 34.1-44.9 Normal (applies to non-numeric resul ts) [facility] Mean Corpuscular Volume 81-99 Below low normal [facility] Mean Corpuscular Hemoglobin 27.0-33.0 Below low normal [facility] Mean Corpuscular HGB Conc 32.0-36.0 Normal (applies to no n-numeric results) [facility] Red Cell Distribution Width 11.5-14.5 Above high normal [facility] Platelet Count 281 X10 3/uL 130-450 Normal (applies to non-numeric results) [facility] Mean Platelet Volume 9.5-12.7 Normal (applies to non-num salome results) [facility] Imm Grans% (AUTO) 1 % 0-2 Normal (applies to non-numeri c results) [facility] Neutrophils % (AUTO) 67 % 40-75 Normal (applies to non-num salome results) [facility] Lymphocytes % (AUTO) 26 % 21-46 Normal (applies to non-num salome results) [facility] Monocytes % (AUTO) 6 % 5-12 Normal (applies to non-numer ic results) [facility] Eosinophils % (AUTO) 1 % 1-5 Normal (applies to non-num salome results) [facility] Basophils % (AUTO) 0 % 0-1 Normal (applies to non-numer ic results) [facility] Imm Grans# (AUTO) 0.0-0.5 Normal (applies to non-numeri c results) [facility] Neutrophils # (AUTO) 1.5-8.1 Above high normal [facility] Lymphocytes # (AUTO) 1.0-3.1 Above high normal [facility] Monocytes # (AUTO) 0.2-1.3 Normal (applies to non-numer ic results) [facility] Eosinophils# (AUTO) 0.0-0.5 Normal (applies to non-nume yahir results) [facility] Basophils # (AUTO) 0.0-0.1 Normal (applies to non-numer ic results) [facility] ID Date Data Source [id number] 10/17/2020 01:26:[address] [facility] Name: ANGELIA ARTHUR : 1965 Age/Sex: 54F Ordering Provider: Ondina Mcrae MD Med Rec #: [id number] Reg Status: [facility] ER Room #: Date of Service: 10/16/20 Report Number: [id number] cc:Valerie Tarango MD Send Report To: [id number] XRP/XR Chest Xray Portable Reason for exam: [...] Date/Time: 10/16/20 1722 Transcribed Date/Time: 10/17/20 1326 Mobile Mechanic: CAMPOS Name Value Range Interpretation Code Description Data Ekta rce(s) Supporting Document(s) ID Date Data Source [id number] 10/17/2020 07:07:[address] [facility] Name: ANGELIA ARTHUR : 1965 Age/Sex: 54F Ordering Provider: Ondina Mcrae MD Med Rec #: [id number] Reg Status:[facility] Room #: Date of Service: 10/16/20 Report Number: [id number] cc: Ondina Mcrae MD; Valerie Tarango MD Send Report To: Reason for exam: Chest Pain SINUS RHYTHM LOW QRS VOLTAGE IN PRECORDIAL LEADS BORDERLINE ECG WARNING: DATA QUALITY MAY AFFECT INTERPRETATION LOW VOLTAGE IS NEW Physician Ghost Writer: Win Roberts M.D. ECG HEART RATE: 87 /min ECG RR INTERVAL: 682 ms ECG P DURATION: 111 ms ECG QRS DURATION: 88 ms ECG LA INTERVAL: 159 ms ECG QT INTERVAL: 347 ms ECG QTC INTERVAL: 394 ms Q-T dispersion: ms ECG P AXIS: 55 deg ECG QRS AXIS: 59 deg ECG T AXIS: 48 deg REPORT SIGNATURE ON FILE 10/17/20 1908 Reported By: Win Roberts MD <<Signature on File>> Exam Date/Time: 10/16/20 1640 Order #: [id number] Dictation Date/Time: 10/17/201906 Transcribed Date/Time: 10/17/201906 Mobile Mechanic: VALDO Name Value Range Interpretation Code Description Data Ekta rce(s) Supporting Document(s) ID Date Data Source [id number] 10/14/2020 10:18:00 AM EST [facility] Name Value Range Interpretation Code Description Data Ekta rce(s) Supporting Document(s) Respiratory specimen severe acute respir atory syndrome coronavirus 2 (SARS-CoV-2) RNA [facility] This lab was ordered by [facility] and reported by . ID Date Data Source [id number] 10/08/2020 03:10:00 PM EST [facility] Name Value Range Interpretation Code Description Data Ekta rce(s) Supporting Document(s) SARS-CoV-2 RNA INHOUSE Negative [facility] THIS IS A [facility] REPORTABLE COMMUNICABLE DISEASE. Results called 10/08/20 1509,JOSE/STEPHANIE ALIS read back information to [email or web address] Testing was performed using the [employer] COVID-19 MDx Assay. This test has been [...] be found at the following links: Providers: https://www.fda.gov/media/029205/download Patients : https://www.fda.gov/media/085788/download THIS IS A [facility] REPORTABLE COMMUNICABLE DISEASE Positive results are indicative of the presence of ALBJ-WoW-NVM; clinical correlation with patient history and other diagnostic information is necessary to determine patient infection status. The agent detected may not be the definite cause of disease. Positive results do not rule out bacterial infection or co-infection with other viruses. ID Date Data Source [id number] 09/24/2020 06:41:00 AM EST [facility] Name Value Range Interpretation Code Description Data Ekta rce(s) Supporting Document(s) Sodium 138 mmol/L 137-145 Normal (applies to non-numeric resul ts) [facility] Potassium 3.5-5.1 Normal (applies to non-numeric resul ts) [facility] Chloride 106 mmol/L 98-112 Normal (applies to non-numeric resul ts) [facility] Carbon Dioxide CO2 22.0-33.0 Normal (applies to non-numer ic results) [facility] Anion Gap 4.0-11.0 Normal (applies to non-numeric resul ts) [facility] BUN 17 mg/dL 7-17 Normal (applies to non-numeric resul ts) [facility] Creatinine 0.70-1.20 Below low normal [facility] GFR >60 Normal (applies to non-numeric results) [facility] Result based on MDRD formula. Glucose Level 91 mg/dL 74-99 Normal (applies to non-numeric re sults) [facility] The reference range is only applicable w hen fasting. Calcium-Uncorrected 8.4-10.2 Normal (applies to non-nume yahir results) [facility] Corrected Calcium 8.4-10.2 Normal (applies to non-numeri c results) [facility] Bilirubin,Total 0.2-1.3 Normal (applies to non-numeric results) [facility] SGOT(AST) 24 U/L 14-36 Normal (applies to non-numeric resul ts) [facility] SGPT(ALT) 43 U/L 9-52 Normal (applies to non-numeric resul ts) [facility] Alkaline Phosphatase 126 U/L 38-126 Normal (applies to non-num salome results) [facility] can increase Alkaline Phosp le vels up to 2 times the normal adult value. Normal values for children and adolescents are 2 to 3 times the normal adult value. Total Protein 6.3-8.2 Normal (applies to non-numeric re sults) [facility] Albumin 3.5-5.0 Normal (applies to non-numeric resul ts) [facility] ID Date Data Source [id number] 09/24/2020 06:41:00 AM EST [facility] Name Value Range Interpretation Code Description Data Ekta rce(s) Supporting Document(s) C-Reactive Protein,Wide Range <3.00 Above high normal [facility] ID Date Data Source [id number] 09/24/2020 06:41:00 AM EST [facility] Name Value Range Interpretation Code Description Data Ekta rce(s) Supporting Document(s) White Blood Count 4.8-10.8 Above high normal [facility] Red Blood Count 3.68-5.22 Normal (applies to non-numeric results) [facility] Hemoglobin 11.2-15.7 Normal (applies to non-numeric resul ts) [facility] Hematocrit 34.1-44.9 Normal (applies to non-numeric resul ts) [facility] Mean Corpuscular Volume 81-99 Below low normal [facility] Mean Corpuscular Hemoglobin 27.0-33.0 Below low normal [facility] Mean Corpuscular HGB Conc 32.0-36.0 Normal (applies to no n-numeric results) [facility] Red Cell Distribution Width 11.5-14.5 Above high normal [facility] Platelet Count 294 X10 3/uL 130-450 Normal (applies to non-numeric results) [facility] Mean Platelet Volume 9.5-12.7 Normal (applies to non-num salome results) [facility] Imm Grans% (AUTO) 1 % 0-2 Normal (applies to non-numeri c results) [facility] Neutrophils % (AUTO) 62 % 40-75 Normal (applies to non-num salome results) [facility] Lymphocytes % (AUTO) 29 % 21-46 Normal (applies to non-num salome results) [facility] Monocytes % (AUTO) 7 % 5-12 Normal (applies to non-numer ic results) [facility] Eosinophils % (AUTO) 1 % 1-5 Normal (applies to non-num salome results) [facility] Basophils % (AUTO) 0 % 0-1 Normal (applies to non-numer ic results) [facility] Imm Grans# (AUTO) 0.0-0.5 Normal (applies to non-numeri c results) [facility] Neutrophils # (AUTO) 1.5-8.1 Normal (applies to non-num salome results) [facility] Lymphocytes # (AUTO) 1.0-3.1 Above high normal [facility] Monocytes # (AUTO) 0.2-1.3 Normal (applies to non-numer ic results) [facility] Eosinophils# (AUTO) 0.0-0.5 Normal (applies to non-nume yahir results) [facility] Basophils # (AUTO) 0.0-0.1 Normal (applies to non-numer ic results) [facility] ID Date Data Source [id number] 09/24/2020 06:41:00 AM [facility] Name Value Range Interpretation Code Description Data Ekta rce(s) Supporting Document(s) Erythrocyte Sedimentation ESR 34 mm/hr 0-20 Above high normal [facility] ID Date Data Source [id number] 09/12/2020 09:24:[address] [facility] Name: ANGELIA ARTHUR : 1965 Age/Sex: 54F Ordering Provider: LA Naidu Med Rec #: [id number] Reg Status: DEP REF Room #: Date of Service: 08/22/20 Report Number: [id number] cc:Valerie Tarango MD; LA Naidu Send Report To: [id number] XRP/XR Steroid Injection Hip Rt [id number] XRP/XR Fluoro Needle Placement Reason for exam: [...] Dictation Date/Time: 09/11/20 1558 Transcribed Date/Time: 09/12/2024 Mobile Mechanic: CAMPOS Name Value Range Interpretation Code Description Data Ekta rce(s) Supporting Document(s) ID Date Data Source [id number] 09/12/2020 09:24:[address] [facility] Name: ANGELIA ARTHUR : 1965 Age/Sex: 54F Ordering Provider: LA Naidu [facility] Rec #: [id number] Reg Status: DEP REF Room #: Date of Service: 08/22/20 Report Number: [id number] cc:Valerie Tarango MD; LA Naidu Send Report To: [id number] XRP/XR Steroid Injection Hip Rt [id number] XRP/XR Fluoro Needle Placement Reason for exam: [...] Dictation Date/Time: 09/11/20 1558 Transcribed Date/Time: 09/12/20923 Mobile Mechanic: CAMPOS Name Value Range Interpretation Code Description Data Ekta rce(s) Supporting Document(s) ID Date Data Source [id number] 09/24/2020 02:37:00 AM EST [facility] Name Value Range Interpretation Code Description Data Ekta rce(s) Supporting Document(s) Erythrocyte Sedimentation ESR 26 mm/hr 0-20 Above high normal [facility] ID Date Data Source [id number] 09/24/2020 02:37:00 AM [facility] Name Value Range Interpretation Code Description Data Ekta rce(s) Supporting Document(s) White Blood Count 4.8-10.8 Above high normal [facility] Red Blood Count 3.68-5.22 Normal (applies to non-numeric results) [facility] Hemoglobin 11.2-15.7 Normal (applies to non-numeric resul ts) [facility] Hematocrit 34.1-44.9 Normal (applies to non-numeric resul ts) [facility] Mean Corpuscular Volume 81-99 Below low normal [facility] Mean Corpuscular Hemoglobin 27.0-33.0 Below low normal [facility] Mean Corpuscular HGB Conc 32.0-36.0 Normal (applies to no n-numeric results) [facility] Red Cell Distribution Width 11.5-14.5 Above high normal [facility] Platelet Count 257 X10 3/uL 130-450 Normal (applies to non-numeric results) [facility] Mean Platelet Volume 9.5-12.7 Normal (applies to non-num salome results) [facility] Imm Grans% (AUTO) 0 % 0-2 Normal (applies to non-numeri c results) [facility] Neutrophils % (AUTO) 63 % 40-75 Normal (applies to non-num salome results) [facility] Lymphocytes % (AUTO) 28 % 21-46 Normal (applies to non-num salome results) [facility] Monocytes % (AUTO) 7 % 5-12 Normal (applies to non-numer ic results) [facility] Eosinophils % (AUTO) 1 % 1-5 Normal (applies to non-num salome results) [facility] Basophils % (AUTO) 0 % 0-1 Normal (applies to non-numer ic results) [facility] Imm Grans# (AUTO) 0.0-0.5 Normal (applies to non-numeri c results) [facility] Neutrophils # (AUTO) 1.5-8.1 Normal (applies to non-num salome results) [facility] Lymphocytes # (AUTO) 1.0-3.1 Normal (applies to non-num salome results) [facility] Monocytes # (AUTO) 0.2-1.3 Normal (applies to non-numer ic results) [facility] Eosinophils# (AUTO) 0.0-0.5 Normal (applies to non-nume yahir results) [facility] Basophils # (AUTO) 0.0-0.1 Normal (applies to non-numer ic results) [facility] ID Date Data Source [id number] 08/18/2020 11:36:00 AM EST [facility] Name Value Range Interpretation Code Description Data Ekta rce(s) Supporting Document(s) Color,Urine Colorl-Dk Y Normal (applies to non-numeric res ults) [facility] Clarity,Urine Clear Normal (applies to non-numeric re sults) [facility] Specific [place],Urine 1.005-1.030 Normal (applies to non- numeric results) [facility] pH,Urine 5.0-8.0 Normal (applies to non-numeric resul ts) [facility] Protein,Urine Negative Normal (applies to non-numeric re sults) [facility] Glucose,Urine Negative Normal (applies to non-numeric re sults) [facility] Ketones,Urine Negative Normal (applies to non-numeric re sults) [facility] Blood,Urine Negative Normal (applies to non-numeric resu lts) [facility] Bilirubin,Urine Negative Normal (applies to non-numeric results) [facility] Urobilinogen,Urine 0.2-1.0 Normal (applies to non-numer ic results) [facility] Leukocyte Esterase,Urine Negative Normal (applies to non -numeric results) [facility] Nitrite,Urine Negative Normal (applies to non-numeric re sults) [facility] RBC,Urine None Seen [facility] WBC,Urine None Seen [facility] Casts,Urine None Seen Normal (applies to non-numeric resu lts) [facility] Epithelial Cells,Urine None - Few [facility] Bacteria,Urine None Seen [facility] ital Mucus,Urine None Seen [facility] ID Date Data Source [id number] 07/30/2020 07:20:00 AM EDT [facility] Name: ANGELIA ARTHUR : 1965 Age/Sex: 54F Ordering Provider: LA Naidu Med Rec #: [id number] Reg Status: [facility] Room #: Date of Service: 07/29/20 Report Number: [id number] cc:Valerie Tarango MD; [place] Naidu Send Report To: [id number] XRP/XR L Spine 2 views Ap & [...] Date/Time: 07/29/20 1348 Transcribed Date/Time: 07/30/20 0720 Mobile Mechanic: [email or web address] Name Value Range Interpretation Code Description Data Ekta rce(s) Supporting Document(s) ID Date Data Source [id number] 07/17/2020 05:47:00 AM EDT [facility] Imaging Services Department Imaging Report [address], [place] [address] %(RAD)RES..mtdd.print.filter("line") Name: ANGELIA ARTHUR : 1965 Age/Sex: 54F Ordering Provider: Erick Sood MD Med Rec #: [id number] Reg Status: [facility] REF Room #: Date of Service: 07/16/20 Report Number: [id number] cc:Valerie Tarango MD; Erick Sood MD Send Report To: [id number] MRI/MRI Hip Rt No Contrast Reason for [...] Dictation Date/Time: 07/16/20 1251 Transcribed Date/Time: 07/17/20 0561 Mobile Mechanic: JHONNY Name Value Range Interpretation Code Description Data Ekta rce(s) Supporting Document(s) ID Date Data Source [id number] 07/19/2020 03:04:00 PM EDT [facility] Name Value Range Interpretation Code Description Data Ekta rce(s) Supporting Document(s) Calprotectin,Fecal result 181 ug/g 0-120 Very a bnormal (applies to non-numeric units [facility] Concentration Interpretation Follo w-Up <16 - 50 ug/g Normal None >50 -120 ug/g Borderline Re-evaluate in 4-6 weeks >120 ug/g Abnormal Repeat as clinically indicated Performed at: [address] [id number] Customer Technical Services Manager: Favio Mcknight MD, Phone: [phone] ID Date Data Source [id number] 07/19/2020 02:54:00 PM EDT [facility] Name Value Range Interpretation Code Description Data Ekta rce(s) Supporting Document(s) Calprotectin,Stool(LCI) result 181 ug/g 0-120 [facility] Concentration Interpretation Follo w-Up <16 - 50 ug/g Normal None >50 -120 ug/g Borderline Re-evaluate in 4-6 weeks >120 ug/g Abnormal Repeat as clinically indicated Performed at: [facility] [address] [id number] Customer Technical Services Manager: Favio Mcknight MD, Phone: [phone] ID Date Data Source [id number] 07/18/2020 10:47:00 AM EDT [facility] Procedure Performed By: [facility] [address] [place] [address] Director: Asuncion Zuñiga MD No Salmonella, Shigella, [...] rce(s) Supporting Document(s) ID Date Data Source [id number] 07/15/2020 03:43:00 PM EDT [facility] Name Value Range Interpretation Code Description Data Ekta rce(s) Supporting Document(s) H. pylori Fecal Antigen result Negative N ormal (applies to non-numeric results) [facility] Performed By: [facility] [address] [place] [address] Circular Gang Saw Operator: Adrianne Huffman MD Test Performed by: [facility] [address] [place] [address] ID Date Data Source [id number] 07/15/2020 03:43:00 PM T [facility] Name Value Range Interpretation Code Description Data [facility] rce(s) Supporting Document(s) Ova and Parasite result Normal (applies to non- numeric results) [facility] SOURCE: STOOL OVA AND PARASITE, MICROSC OPY, F FINAL No parasites seen. Cryptosporidium, Cyclospora, and microsporidia are not readily detected by this method. Single negative specimen does not rule out parasitic infection. Test Performed by: [address] [address] Customer Technical Services Manager: Willi Rendon M.D. Ph.D.; CLIA# [id number] ID Date Data Source [id number] 07/15/2020 03:22:00 PM EDT [facility] Name Value Range Interpretation Code Description Data Ekta rce(s) Supporting Document(s) H. pylori Antigen,Stool res Negative Normal (appli es to non-numeric results) [facility] Performed By: [facility] [address] [place] [address] Circular Gang Saw Operator: Adrianne Huffman MD Test Performed by: [facility] [address] [place] [address] ID Date Data Source [id number] 07/15/2020 03:23:00 PM EDT [facility] Name Value Range Interpretation Code Description Data Ekta rce(s) Supporting Document(s) Ova and Parasite result Normal (applies to non- numeric results) [facility] SOURCE: STOOL OVA AND PARASITE, MICROSC OPY, F FINAL No parasites seen. Cryptosporidium, Cyclospora, and microsporidia are not readily detected by this method. Single negative specimen does not rule out parasitic infection. Test Performed by: [place] [address] Customer Technical Services Manager: Willi Rendon M.D. Ph.D.; CLIA# [id number] ID Date Data Source [id number] 07/15/2020 01:45:00 AM EDT [facility] This specimen was not examined for Yersi anthony. Procedure Performed By: [facility] [address] [place] [address] Director: Asuncion Zuñiga MDNo Salmonella, Shigella, Campylobacter [...] rce(s) Supporting Document(s) ID Date Data Source [id number] 07/11/2020 06:50:00 PM EDT [facility] C.difficile strain 027/[id number] has bee n associated with severe disease outbreaks and poor treatment outcomes in healthcare facilities worldwide. Reference Range: Toxin producing C. difficile and 027/NAP-1Procedure Performed By: [facility] [address] [place] [address] Director: Asuncion Zuñiga MD . Toxigenic C.difficle: Not detected 027-NAP1-BI: Presumptive negative Name Value Range Interpretation Code Description Data Ekta rce(s) Supporting Document(s) ID Date Data Source [id number] 07/11/2020 03:51:00 PM EDT [facility] C.difficile strain 027/[id number] has been associated with severe disease outbreaks and poor treatment outcomes in healthcare facilities worldwide. Reference Range: Toxin producing C. difficile and 027/NAP-1 Procedure Performed By: [facility] [address] [place] [address] Director: Asuncion Zuñiga MD .Not detectedPresumptive negative Name Value Range Interpretation Code Description Data Ekta rce(s) Supporting Document(s) ID Date Data Source [id number] 07/12/2020 10:31:00 AM EDT [facility] Procedure Performed By: [facility] [address] [place] [address] Director: Asuncion Zuñiga MD QUANTITY: >100,000/mL {ESCHERICHIA COLI} ESCHERICHIA COLISCT Name Value Range Interpretation Code Description Data Ekta rce(s) Supporting Document(s) ID Date Data Source [id number] 07/12/2020 10:31:00 AM EDT [facility] Procedure Performed By: [facility] [address] [place] [address] Director: Asuncion Zuñiga MD QUANTITY: >100,000/mL {ESCHERICHIA COLI} ESCHERICHIA COLISCT Name Value Range Interpretation Code Description Data Ekta rce(s) Supporting Document(s) Amoxicillin/Clavulanic Acid Susc eptible. Indicates for microbiology susceptibilities only. [facility] Ampicillin 8 Susceptible. Indicates for [facility]. [facility] Cefazolin Susceptible. Indicates for microbiol ogy susceptibilities only. [facility] Cefepime Susceptible. Indicates for microbiol ogy susceptibilities only. [facility] ESBL - [facility] Ceftriaxone Susceptible. Indicates for [facility] susceptibilities only. [facility] Ciprofloxacin Susceptible. Ind icates for microbiology susceptibilities only. [facility] Ertapenem Susceptible. Indicates for microbiol ogy susceptibilities only. [facility] Gentamicin Susceptible. Indicates for microbiol ogy susceptibilities only. [facility] Imipenem Susceptible. Indicates for microbiol ogy susceptibilities only. [facility] Meropenem Susceptible. Indicates for microbiol ogy susceptibilities only. [facility] Levofloxacin Susceptible. Indicates for m icrobiology susceptibilities only. [facility] Nitrofurantoin Susceptible. Ind icates for microbiology susceptibilities only. [facility] Pipercillin/Tazobactam Susceptib le. Indicates for microbiology susceptibilities only. [facility] Trimeth/Sulfamethoxazole Suscept ible. Indicates for microbiology susceptibilities only. [facility] ID Date Data Source [id number] 07/12/2020 09:25:00 AM EDT [facility] Name Value Range Interpretation Code Description Data Ekta rce(s) Supporting Document(s) Urine Culture [facility] ospital ID Date Data Source [id number] 07/12/2020 09:25:00 AM EDT [facility] Name Value Range Interpretation Code Description Data Ekta rce(s) Supporting Document(s) Amoxicillin/Clavulanic Acid Susc eptible. Indicates for microbiology susceptibilities only. [facility] Ampicillin 8 Susceptible. Indicates for m icrobiology susceptibilities only. [facility] Cefazolin Susceptible. Indicates for microbiol ogy susceptibilities only. [facility] Cefepime Susceptible. Indicates for microbiol ogy susceptibilities only. [facility] Ceftriaxone Susceptible. Indicates for m icrobiology susceptibilities only. [facility] Ciprofloxacin Susceptible. Ind icates for microbiology susceptibilities only. [facility] Ertapenem Susceptible. Indicates for microbiol ogy susceptibilities only. [facility] Gentamicin Susceptible. Indicates for microbiol ogy susceptibilities only. [facility] Imipenem Susceptible. Indicates for microbiol ogy susceptibilities only. [facility] Meropenem Susceptible. Indicates for microbiol ogy susceptibilities only. [facility] Levofloxacin Susceptible. Indicates for m icrobiology susceptibilities only. [facility] Nitrofurantoin Susceptible. Ind icates for microbiology susceptibilities only. [facility] Pipercillin/Tazobactam Susceptib le. Indicates for microbiology susceptibilities only. [facility] Trimeth/Sulfamethoxazole Suscept ible. Indicates for microbiology susceptibilities only. [facility] ID Date Data Source [id number] 07/10/2020 04:21:00 PM EDT [facility] Name Value Range Interpretation Code Description Data Ekta rce(s) Supporting Document(s) Color,Urine Colorl-Dk Y Normal (applies to non-numeric res ults) [facility] Clarity,Urine Clear Normal (applies to non-numeric re sults) [facility] Specific [place],Urine 1.005-1.030 Normal (applies to non- numeric results) [facility] pH,Urine 5.0-8.0 Normal (applies to non-numeric resul ts) [facility] Protein,Urine Negative [facility] mandi Glucose,Urine Negative Normal (applies to non-numeric re sults) [facility] Ketones,Urine Negative Normal (applies to non-numeric re sults) [facility] Blood,Urine Negative [facility] l Bilirubin,Urine Negative Normal (applies to non-numeric results) [facility] Urobilinogen,Urine 0.2-1.0 Normal (applies to non-numer ic results) [facility] Leukocyte Esterase,Urine Negative [facility] Nitrite,Urine Negative Normal (applies to non-numeric re sults) [facility] RBC,Urine None Seen [facility] WBC,Urine None Seen [facility] Casts,Urine None Seen Normal ([facility] Squamous Cells,Urine None Seen [facility] Bacteria,Urine None Seen [facility] ital ID Date Data Source [id number] 07/04/2020 09:17:00 AM EDT [facility] Name Value Range Interpretation Code Description Data Ekta rce(s) Supporting Document(s) PT 9.2-11.7 Normal (applies to non-numeric results) [facility] INR Normal (applies to non-numeric results) [facility] The use of INR is restricted to patients on stable oral anticoagulant. Therapeutic Range: 2.0 - 3.0 High Risk Range: 2.5 - 3.5 ID Date Data Source [id number] 07/04/2020 09:17:00 AM EDT [facility] Name Value Range Interpretation Code Description Data Ekta rce(s) Supporting Document(s) PTT 23.8-37.9 Normal (applies to non-numeric results) [facility] ID Date Data Source [id number] 07/04/2020 08:58:00 AM EDT [facility] Name Value Range Interpretation Code Description Data Ekta rce(s) Supporting Document(s) White Blood Count 3.5-10.5 Above high normal [facility] Red Blood Count 3.90-5.00 Normal (applies to non-numeric results) [facility] Hemoglobin 12.0-15.5 Normal (applies to non-numeric resul ts) [facility] Hematocrit 34.9-44.5 Normal (applies to non-numeric resul ts) [facility] Mean Corpuscular Volume 81.2-95.1 Below low normal [facility] Mean Corpuscular Hgb 25.6-32.2 Normal (applies to non-num salome results) [facility] Mean Corpuscular Hgb Conc 32.0-36.0 Normal (applies to no n-numeric results) [facility] Red Cell Distribution Width 11.9-15.5 Normal (appli es to non-numeric results) [facility] Platelet Count 297 x10 3/uL 150-450 Normal (applies to non-numeric results) [facility] Mean Platelet Volume 9.4-12.4 Below low normal [facility] Neutrophils% (Auto) 31.0-71.0 Normal (applies to non-nume yahir results) [facility] Lymphocytes% (Auto) 20.0-55.0 Normal (applies to non-nume yahir results) [facility] Monocytes% (Auto) 4.0-12.0 Normal (applies to non-numeri c results) [facility] Eosinophils% (Auto) 1.0-8.0 Normal (applies to non-nume yahir results) [facility] Basophils% (Auto) 0.0-2.0 Normal (applies to non-numeri c results) [facility] Immature Granulocytes% (Auto) 0.0-2.0 Normal (taiwo lies to non-numeric results) [facility] Neutrophils# (Auto) 1.50-6.20 Above high normal [facility] Lymphocytes# (Auto) 1.20-4.00 Normal (applies to non-nume yahir results) [facility] Monocytes# (Auto) 0.00-0.90 Normal (applies to non-numeri c results) [facility] Eosinophils# (Auto) 0.00-0.50 Normal (applies to non-nume yahir results) [facility] Basophils# (Auto) 0.00-0.20 Normal (applies to non-numeri c results) [facility] Immature Granulocytes# (Auto) 0.00-7.00 No rmal (applies to non-numeric results) [facility] ID Date Data Source [id number] 07/04/2020 09:25:00 AM EDT [facility] Name Value Range Interpretation Code Description Data Ekta rce(s) Supporting Document(s) Sodium 137 mmol/L 136-145 Normal (applies to non-numeric resul ts) [facility] Potassium 3.5-5.1 Normal (applies to non-numeric resul ts) [facility] Chloride 102 mmol/L 98-107 Normal (applies to non-numeric resul ts) [facility] Carbon Dioxide CO2 21-32 Normal (applies to non-numer ic results) [facility] Anion Gap 5.0-16.0 Normal (applies to non-numeric resul ts) [facility] BUN 16 mg/dL 7-18 Normal (applies to non-numeric results) [facility] Creatinine,Serum 0.7-1.2 Below low normal [facility] GFR >60 Normal (applies to non-numeric results) [facility] Glucose Level 109 mg/dL 60-99 Above high normal [facility] Reference range is only applicable when patient is fasting Note the following drug interference: Sulfasalazine Sulfapyridine Can see falsely depressed Can see falsely elevated result with up to 17% results with up to 11% decrease in measurement increase in measurement Recommend patients be collected for this test prior to administration of either drug. Calcium 8.5-10.1 Normal (applies to non-numeric resul ts) [facility] Bilirubin,Total 0.1-1.9 Normal (applies to non-numeric results) [facility] SGOT(AST) 28 U/L 15-37 Normal (applies to non-numeric resul ts) [facility] Note the following drug interference: Sulfasalazine Sulfapyridine Can see falsely depressed Can see falsely elevated result with up to 10% results with up to 10% decrease in measurement increase in measurement Recommend patients be collected for this test prior to administration of either drug. SGPT(ALT) 49 U/L 12-78 Normal (applies to non-numeric resul ts) [facility] Note the following drug interference: Sulfasalazine Sulfapyridine Can see falsely depressed Can see falsely elevated result with up to 29% results with up to 10% decrease in measurement increase in measurement Recommend patients be collected for this test prior to administration of either drug. Alkaline Phosphatase 124 U/L 38-126 Normal (applies to non-num salome results) [facility] can increase Alkaline Phosp le vels up to 2 times the normal adult value. Normal values for children and adolescents are 2 to 3 times the normal adult value. Total Protein 6.0-8.2 Normal (applies to non-numeric re sults) [facility] Albumin Level 3.4-5.0 Normal (applies to non-numeric re sults) [facility] ID Date Data Source [id number] 07/04/2020 09:25:00 AM EDT [facility] Name Value Range Interpretation Code Description Data Ekta rce(s) Supporting Document(s) Troponin I 0.000-0.056 Normal (applies to non-numeric resu lts) [facility] ID Date Data Source [id number] 07/04/2020 09:25:00 AM EDT [facility] Name Value Range Interpretation Code Description Data Ekta rce(s) Supporting Document(s) Amylase 22 U/L 25-115 Below low normal [facility] ID Date Data Source [id number] 07/04/2020 09:25:00 AM EDT [facility] Name Value Range Interpretation Code Description Data Ekta rce(s) Supporting Document(s) Lipase 127 U/L 73-393 Normal (applies to non-numeric resul ts) [facility] ID Date Data Source [id number] 07/05/2020 05:31:00 AM EDT [facility] Imaging Services Department Imaging Report [address], [place] [address] %(RAD)RES..mtdd.print.filter("line") Name: ANGELIA ARTHUR : 1965 Age/Sex: 54F Ordering Provider: Maggie Bates MD Med Rec #: [id number] Reg Status: [facility] Room #: Date of Service: 07/04/20 Report Number: [id number] cc:Valerie Tarango MD Send Report To: [id number] US/US Gall Bladder Study Reason for exam: [...] Date/Time: 07/04/20 1027 Transcribed Date/Time: 07/05/20 0531 Mobile Mechanic: [email or web address] Name Value Range Interpretation Code Description Data Ekta rce(s) Supporting Document(s) ID Date Data Source [id number] 07/04/2020 04:33:00 PM EDT [facility] Imaging Services Department Imaging Report [address], [place] [address] %(RAD)RES..mtdd.print.filter("line") Name: ANGELIA ARTHUR : 1965 Age/Sex: 54F Ordering Provider: Maggie Bates MD Med Rec #: [id number] Reg Status: [facility] ER Room #: Date of Service: 07/04/20 Report Number: [id number] cc:Valerie Tarango MD Send Report To: [id number] XRP/XR Chest 2 View [Pa & Lat] [...] Date/Time: 07/04/20 0937 Transcribed Date/Time: 07/04/20 1633 Mobile Mechanic: [email or web address] Name Value Range Interpretation Code Description Data Ekta rce(s) Supporting Document(s) ID Date Data Source [id number] 07/04/2020 04:37:00 PM EDT [facility] Imaging Services Department Imaging Report [address], [place] [address] %(RAD)RES..mtdd.print.filter("line") Name: ANGELIA ARTHUR : 1965 Age/Sex: 54F Ordering Provider: Maggie Bates MD Med Rec #: [id number] Reg Status: [facility] Room #: Date of Service: 07/04/20 Report Number: [id number] cc:Valerie Tarango MD Send Report To: [id number] CT/CT Abdomen & Pelvis No Contras Reason [...] Date/Time: 07/04/20 0937 Transcribed Date/Time: 07/04/20 1637 Mobile Mechanic: [email or web address] Name Value Range Interpretation Code Description Data Ekta rce(s) Supporting Document(s) ID Date Data Source [id number] 06/30/2020 11:38:00 PM EDT [facility] Name Value Range Interpretation Code Description Data Ekta rce(s) Supporting Document(s) Respiratory specimen severe acute respir atory syndrome coronavirus 2 (SARS-CoV-2) RNA [facility] ital This lab was ordered by [facility] layne and reported by [facility]. Procedure Social History No Information Vital Signs ID Date Data Source UNK Name Value Range Interpretation Code Description Data Source(s) Body temperature 97.3 [degF] 97.3 [degF] [facility] Body height 63.75 [in_i] 63.75 [in_i] [facility] ([facility] ) 5'3.75" Body weight 253.00 [lb_av] 253.00 [lb_av] [facility] T ([facility]) Body mass index (BMI) [Ratio] 43.8 kg/m2 43.8 k g/m2 [facility] ([facility]) ID Date Data Source [id number] 08/25/2021 12:44:00 PM EST [facility] Name Value Range Interpretation Code Description Data Source(s) Weight (Calculated Kilograms) 106.96 106.96 [facility] Height (Calculated Centimeters) 160.02 160. 02 [facility] Body Mass Index (BMI) 41.8 41.8 [facility] Weight (Calculated Kilograms) 106.96 106.96 [facility] Height (Calculated Centimeters) 160.02 160. 02 [facility] Body Mass Index (BMI) 41.8 41.8 [facility] Weight (Calculated Kilograms) 106.96 106.96 [facility] Height (Calculated Centimeters) 160.02 160. 02 [facility] Body Mass Index (BMI) 41.8 41.8 [facility] Hospital ID Date Data Source [id number] 07/31/2021 05:32:00 PM EDT [facility] Name Value Range Interpretation Code Description Data Source(s) Weight (Calculated Kilograms) 106.96 106.96 [facility] Height (Calculated Centimeters) 160.02 160. 02 [facility] Body Mass Index (BMI) 41.8 41.8 [facility] ID Date Data Source [id number] 08/01/2021 12:05:00 AM EDT [facility] Name Value Range Interpretation Code Description Data Source(s) Weight (Calculated Kilograms) 93.58 93.58 [facility] Height (Calculated Centimeters) 160.02 160. 02 [facility] Body Mass Index (BMI) 36.[address] ID Date Data Source [id number] 08/05/2021 01:22:00 PM EDT [facility] Name Value Range Interpretation Code Description Data Source(s) Weight (Calculated Kilograms) 106.96 106.96 [facility] Height (Calculated Centimeters) 160.02 160. 02 [facility] Body Mass Index (BMI) 41.8 41.8 [facility] ID Date Data Source [id number] 07/17/2021 12:06:00 AM EDT [facility] Name Value Range Interpretation Code Description Data Source(s) Weight (Calculated Kilograms) 93.58 93.58 [facility] Height (Calculated Centimeters) 160.02 160. 02 [facility] Body Mass Index (BMI) 36.5 365 [facility] ID Date Data Source [id number] 07/14/2021 02:29:00 PM EDT [facility] Name Value Range Interpretation Code Description Data Source(s) Weight Measurement Method 8 8 [facility] Weight (Calculated Kilograms) 93.58 93.58 [facility] Weight 4160 4160 [facility] pital Temperature Source 7 7 [facility] Temperature 97.9 97.9 [facility] Respiratory Effort 1 1 [facility] Respiratory Rate 20 20 [facility] Pulse Assessment Method 4 4 G [facility] Pulse Rate 91 91 [facility] pital Height (Calculated Centimeters) 160.02 160. 02 [facility] 63 [facility] 129/73 129/73 [facility] Body Mass Index (BMI) 36.[address] Weight Measurement Method 8 8 [facility] Weight (Calculated Kilograms) 93.58 93.58 [facility] Weight 4160 4160 [facility] pital Temperature Source 7 7 [facility] Temperature 97.9 97.9 [facility] Respiratory Effort 1 1 [facility] Respiratory Rate 20 20 [facility] Pulse Assessment Method 4 4 G [facility] Pulse Rate 91 91 [facility] pital Height (Calculated Centimeters) 160.02 160. 02 [facility] Height 63 63 [facility] Blood Pressure 129/73 129/73 [facility] Body Mass Index (BMI) 36.[address] Weight (Calculated Kilograms) 93.58 93.58 [facility] Height (Calculated Centimeters) 160.02 160. 02 [facility] Body Mass Index (BMI) 36.[address] Weight (Calculated Kilograms) 93.58 93.58 [facility] Height (Calculated Centimeters) 160.02 160. 02 [facility] Body Mass Index (BMI) [address] ID Date Data Source [id number] 07/03/2021 10:16:00 PM EDT [facility] Name Value Range Interpretation Code Description Data Source(s) Weight (Calculated Kilograms) 106.96 106.96 [facility] Height (Calculated Centimeters) 160.02 160. 02 [facility] Body Mass Index (BMI) 41.8 41.8 [facility] Hospital ID Date Data Source [id number] 07/04/2021 12:08:00 AM EDT [facility] Name Value Range Interpretation Code Description Data Source(s) Weight (Calculated Kilograms) 93.58 93.58 [facility] Height (Calculated Centimeters) 160.02 160. 02 [facility] Body Mass Index (BMI) 36.5 36.5 [facility] ID Date Data Source [id number] 08/11/2021 04:05:00 PM EDT [facility] Name Value Range Interpretation Code Description Data Source(s) Weight (Calculated Kilograms) 106.96 106.96 [facility] Height (Calculated Centimeters) 160.02 160. 02 [facility] Body Mass Index (BMI) 41.8 41.8 [facility] ID Date Data Source [id number] 07/28/2021 08:55:00 AM EDT [facility] Name Value Range Interpretation Code Description Data Source(s) Weight (Calculated Kilograms) 106.96 106.96 [facility] Height (Calculated Centimeters) 160.02 160. 02 [facility] Body Mass Index (BMI) 41.8 41.8 [facility] ID Date Data Source [id number] 06/27/2021 06:01:00 PM EDT [facility] Name Value Range Interpretation Code Description Data Source(s) Weight (Calculated Kilograms) 106.96 106.96 [facility] Height (Calculated Centimeters) 160.02 160. 02 [facility] Body Mass Index (BMI) 41.8 41.8 [facility] Weight (Calculated Kilograms) 106.96 106.96 [facility] Height (Calculated Centimeters) 160.02 160. 02 [facility] Body Mass Index (BMI) 41.8 41.8 [facility] Weight (Calculated Kilograms) 106.96 106.96 [facility] Height (Calculated Centimeters) 160.02 160. 02 [facility] Body Mass Index (BMI) 41.8 41.8 [facility] ID Date Data Source [id number] 07/10/2021 01:19:00 PM EDT [facility] Name Value Range Interpretation Code Description Data Source(s) Weight (Calculated Kilograms) 106.96 106.96 [facility] Temperature Source 7 7 [facility] Temperature 96.9 96.9 [facility] Respiratory Effort 2 2 [facility] Respiratory Rate 18 18 [facility] Pulse Assessment Method 4 4 [facility] Pulse Rate 85 85 [facility] Height (Calculated Centimeters) 160.02 160. 02 [facility] Blood Pressure 137/69 137/69 [facility] Body Mass Index (BMI) 41.8 41.8 [facility] Weight (Calculated Kilograms) 106.96 106.96 [facility] Temperature Source 7 7 [facility] Temperature 96.9 96.9 [facility] Respiratory Effort 2 2 [facility] Respiratory Rate 18 18 [facility] Pulse Assessment Method 4 4 [facility] Pulse Rate 85 85 [facility] Height (Calculated Centimeters) 160.02 160. 02 [facility] Blood Pressure 137/69 137/69 [facility] Body Mass Index (BMI) 41.8 41.8 [facility] Weight (Calculated Kilograms) 106.96 106.96 [facility] Height (Calculated Centimeters) 160.02 160. 02 [facility] Body Mass Index (BMI) 41.8 41.8 [facility] Weight (Calculated Kilograms) 106.96 106.96 [facility] Height (Calculated Centimeters) 160.02 160. 02 [facility] Body Mass Index (BMI) 41.8 41.8 [facility] ID Date Data Source [id number] 06/20/2021 01:07:00 PM EDT [facility] Name Value Range Interpretation Code Description Data Source(s) Weight (Calculated Kilograms) 106.96 106.96 [facility] Weight 4096 4096 [facility] Temperature 97.8 97.8 [facility] Respiratory Rate 20 20 [facility] Pulse Rate 87 87 [facility] Height (Calculated Centimeters) 160.02 160. 02 [facility] Height 63 63 [facility] Blood Pressure 125/57 125/57 [facility] Body Mass Index (BMI) 41.8 41.8 [facility] Weight (Calculated Kilograms) 106.96 106.96 [facility] Weight 4096 4096 [facility] Temperature 97.8 97.8 [facility] Respiratory Rate 20 20 [facility] Pulse Rate 87 87 [facility] Height (Calculated Centimeters) 160.02 160. 02 [facility] Height 63 63 [facility] Blood Pressure 125/57 125/57 [facility] Body Mass Index (BMI) 41.8 41.8 [facility] Weight (Calculated Kilograms) 106.96 106.96 [facility] Weight 4096 4096 [facility] Height (Calculated Centimeters) 160.02 160. 02 [facility] Height 63 63 [facility] Body Mass Index (BMI) 41.8 41.8 [facility] ID Date Data Source [id number] 06/12/2021 07:43:00 AM EDT [facility] Name Value Range Interpretation Code Description Data Source(s) Weight (Calculated Kilograms) 93.58 93.58 [facility] Height (Calculated Centimeters) 160.02 160. 02 [facility] Body Mass Index (BMI) 36.5 36.5 [facility] ID Date Data Source [id number] 07/07/2021 01:12:00 PM EDT [facility] Name Value Range Interpretation Code Description Data Source(s) Weight (Calculated Kilograms) 106.96 106.96 [facility] Height (Calculated Centimeters) 160.02 160. 02 [facility] Body Mass Index (BMI) 41.8 41.8 [facility] ID Date Data Source [id number] 06/05/2021 04:38:00 PM T [facility] Name Value Range Interpretation Code Description Data Source(s) Weight (Calculated Kilograms) 106.96 106.96 [facility] Height (Calculated Centimeters) 160.02 160. 02 [facility] Body Mass Index (BMI) 41.8 41.8 [facility] ID Date Data Source [id number] 06/06/2021 12:04:00 AM T [facility] Name Value Range Interpretation Code Description Data Source(s) Weight (Calculated Kilograms) 93.58 93.58 [facility] Height (Calculated Centimeters) 160.02 160. 02 [facility] Body Mass Index (BMI) 36.5 36.5 [facility] ID Date Data Source [id number] 08/19/2021 12:23:[address] [facility] Name Value Range Interpretation Code Description Data Source(s) Weight (Calculated Kilograms) 106.96 106.96 [facility] Height (Calculated Centimeters) 160.02 160. 02 [facility] Body Mass Index (BMI) 41.8 41.8 [facility] ID Date Data Source [id number] 05/29/2021 11:35:00 AM [facility] Name Value Range Interpretation Code Description Data Source(s) Weight (Calculated Kilograms) 93.58 93.58 [facility] Height (Calculated Centimeters) 160.02 160. 02 [facility] Body Mass Index (BMI) 36.5 365 [facility] ID Date Data Source [id number] 06/17/2021 01:47:00 PM [facility] Name Value Range Interpretation Code Description Data Source(s) Weight (Calculated Kilograms) 106.96 106.96 [facility] Height (Calculated Centimeters) 160.02 160. 02 [facility] Body Mass Index (BMI) 41.8 41.8 [facility] ID Date Data Source [id number] 05/06/2021 04:35:00 PM [facility] Name Value Range Interpretation Code Description Data Source(s) Weight (Calculated Kilograms) 106.96 106.96 [facility] Height (Calculated Centimeters) 160.02 160. 02 [facility] Body Mass Index (BMI) 41.8 41.8 [facility] ID Date Data Source [id number] 05/06/2021 05:11:00 PM [facility] Name Value Range Interpretation Code Description Data Source(s) Weight (Calculated Kilograms) 93.58 93.58 [facility] Height (Calculated Centimeters) 160.02 160. 02 [facility] Body Mass Index (BMI) 36.5 36.5 [facility] ID Date Data Source [id number] 05/07/2021 09:50:00 AM [facility] Name Value Range Interpretation Code Description Data Source(s) Weight (Calculated Kilograms) 106.96 106.96 [facility] Height (Calculated Centimeters) 160.02 160. 02 [facility] Body Mass Index (BMI) 41.8 41.8 [facility] ID Date Data Source [id number] 05/07/2021 10:06:00 AM [facility] Name Value Range Interpretation Code Description Data Source(s) Weight (Calculated Kilograms) 93.58 93.58 [facility] Height (Calculated Centimeters) 160.02 160. 02 [facility] Body Mass Index (BMI) 36.5 36.5 [facility] ID Date Data Source [id number] 04/28/2021 05:40:00 AM [facility] Name Value Range Interpretation Code Description Data Source(s) Weight (Calculated Kilograms) 106.96 106.96 [facility] Height (Calculated Centimeters) 160.02 160. 02 [facility] Body Mass Index (BMI) 41.8 41.8 [facility] ID Date Data Source [id number] 04/17/2021 11:02:00 AM [facility] Name Value Range Interpretation Code Description Data Source(s) Weight (Calculated Kilograms) 106.96 106.96 [facility] Height (Calculated Centimeters) 160.02 160. 02 [facility] Body Mass Index (BMI) 41.8 41.8 [facility] ID Date Data Source [id number] 04/17/2021 01:57:00 PM [facility] Name Value Range Interpretation Code Description Data Source(s) Weight (Calculated Kilograms) 106.96 106.96 [facility] Height (Calculated Centimeters) 160.02 160. 02 [facility] Body Mass Index (BMI) 41.8 41.8 [facility] Hospital ID Date Data Source [id number] 04/22/2021 12:25:00 PM EDT [facility] Name Value Range Interpretation Code Description Data Source(s) Weight (Calculated Kilograms) 106.96 106.96 [facility] Height (Calculated Centimeters) 160.02 160. 02 [facility] Body Mass Index (BMI) 41.8 41.8 [facility] Hospital ID Date Data Source [id number] 04/22/2021 12:46:00 PM EDT [facility] Name Value Range Interpretation Code Description Data Source(s) Weight (Calculated Kilograms) 93.58 93.58 [facility] Height (Calculated Centimeters) 160.02 160. 02 [facility] Body Mass Index (BMI) 36.5 36.5 [facility] ID Date Data Source [id number] 04/17/2021 08:17:00 AM EDT [facility] Name Value Range Interpretation Code Description Data Source(s) Weight (Calculated Kilograms) 106.96 106.96 [facility] Height (Calculated Centimeters) 160.02 160. 02 [facility] Body Mass Index (BMI) 41.8 41.8 [facility] ID Date Data Source [id number] 04/17/2021 02:02:00 PM [facility] Name Value Range Interpretation Code Description Data Source(s) Weight (Calculated Kilograms) 106.96 106.96 [facility] Height (Calculated Centimeters) 160.02 160. 02 [facility] Body Mass Index (BMI) 41.8 41.8 [facility] Weight (Calculated Kilograms) 106.96 106.96 [facility] Height (Calculated Centimeters) 160.02 160. 02 [facility] Body Mass Index (BMI) 41.8 41.8 [facility] Weight (Calculated Kilograms) 106.96 106.96 [facility] Height (Calculated Centimeters) 160.02 160. 02 [facility] Body Mass Index (BMI) 41.8 41.8 [facility] ID Date Data Source [id number] 04/21/2021 08:03:00 AM EDT [facility] Name Value Range Interpretation Code Description Data Source(s) Weight (Calculated Kilograms) 106.96 106.96 [facility] Height (Calculated Centimeters) 160.02 160. 02 [facility] Body Mass Index (BMI) 41.8 41.8 [facility] Hospital ID Date Data Source [id number] 03/28/2021 05:35:00 PM EDT [facility] Name Value Range Interpretation Code Description Data Source(s) Weight (Calculated Kilograms) 106.96 106.96 [facility] Height (Calculated Centimeters) 160.02 160. 02 [facility] Body Mass Index (BMI) 41.8 41.8 [facility] ID Date Data Source [id number] 03/29/2021 12:03:00 AM EDT [facility] Name Value Range Interpretation Code Description Data Source(s) Weight (Calculated Kilograms) 93.58 93.58 [facility] Height (Calculated Centimeters) 160.02 160. 02 [facility] Body Mass Index (BMI) 36.[address] ID Date Data Source [id number] 03/26/2021 09:28:00 AM EDT [facility] Name Value Range Interpretation Code Description Data Source(s) Weight (Calculated Kilograms) 106.96 106.96 [facility] Height (Calculated Centimeters) 160.02 160. 02 [facility] Body Mass Index (BMI) 41.8 41.8 [facility] ID Date Data Source [id number] 03/27/2021 09:39:00 AM EDT [facility] Name Value Range Interpretation Code Description Data Source(s) Weight (Calculated Kilograms) 93.58 93.58 [facility] Height (Calculated Centimeters) 160.02 160. 02 [facility] Body Mass Index (BMI) 36.[address] Weight (Calculated Kilograms) 93.58 93.58 [facility] Height (Calculated Centimeters) 160.02 160. 02 [facility] Body Mass Index (BMI) 36.5 36.5 [facility] ID Date Data Source [id number] 03/17/2021 07:09:00 AM [facility] Hospital Name Value Range Interpretation Code Description Data Source(s) Weight (Calculated Kilograms) 106.96 106.96 [facility] Height (Calculated Centimeters) 160.02 160. 02 [facility] Body Mass Index (BMI) 41.8 41.8 [facility] ID Date Data Source [id number] 03/12/2021 02:02:00 PM [facility] Name Value Range Interpretation Code Description Data Source(s) Weight (Calculated Kilograms) 106.96 106.96 [facility] Height (Calculated Centimeters) 160.02 160. 02 [facility] Body Mass Index (BMI) 41.8 41.8 [facility] Weight (Calculated Kilograms) 106.96 106.96 [facility] Height (Calculated Centimeters) 160.02 160. 02 [facility] Body Mass Index (BMI) 41.8 41.8 [facility] Weight (Calculated Kilograms) 106.96 106.96 [facility] Height (Calculated Centimeters) 160.02 160. 02 [facility] Body Mass Index (BMI) 41.8 41.8 [facility] ID Date Data Source [id number] 03/05/2021 08:51:00 AM [facility] Name Value Range Interpretation Code Description Data Source(s) Weight (Calculated Kilograms) 106.96 106.96 [facility] Height (Calculated Centimeters) 160.02 160. 02 [facility] Body Mass Index (BMI) 41.8 41.8 [facility] ID Date Data Source [id number] 03/05/2021 11:28:00 AM [facility] Name Value Range Interpretation Code Description Data Source(s) Weight (Calculated Kilograms) 93.58 93.58 [facility] Height (Calculated Centimeters) 160.02 160. 02 [facility] Body Mass Index (BMI) 36.5 365 [facility] Weight (Calculated Kilograms) 93.58 93.58 [facility] Height (Calculated Centimeters) 160.02 160. 02 [facility] Body Mass Index (BMI) 36.5 36.5 [facility] ID Date Data Source [id number] 02/26/2021 08:05:00 AM EDT [facility] Name Value Range Interpretation Code Description Data Source(s) Weight (Calculated Kilograms) 106.96 106.96 [facility] Height (Calculated Centimeters) 160.02 160. 02 [facility] Body Mass Index (BMI) 41.8 41.8 [facility] ID Date Data Source [id number] 03/24/2021 09:41:00 AM EDT [facility] Name Value Range Interpretation Code Description Data Source(s) Weight (Calculated Kilograms) 106.96 106.96 [facility] Height (Calculated Centimeters) 160.02 160. 02 [facility] Body Mass Index (BMI) 41.8 41.8 [facility] ID Date Data Source [id number] 02/12/2021 11:36:00 AM EDT [facility] Name Value Range Interpretation Code Description Data Source(s) Weight (Calculated Kilograms) 93.58 93.58 [facility] Height (Calculated Centimeters) 160.02 160. 02 [facility] Body Mass Index (BMI) 36.5 365 [facility] Weight (Calculated Kilograms) 93.58 93.58 [facility] Height (Calculated Centimeters) 160.02 160. 02 [facility] Body Mass Index (BMI) 36.5 36.5 [facility] ID Date Data Source [id number] 02/11/2021 08:51:00 AM EDT [facility] Name Value Range Interpretation Code Description Data Source(s) Weight (Calculated Kilograms) 106.96 106.96 [facility] Height (Calculated Centimeters) 160.02 160. 02 [facility] Body Mass Index (BMI) 41.8 41.8 [facility] ID Date Data Source [id number] 03/07/2021 03:37:00 AM EDT [facility] Name Value Range Interpretation Code Description Data Source(s) Weight (Calculated Kilograms) 93.58 93.58 [facility] Height (Calculated Centimeters) 160.02 160. 02 [facility] Body Mass Index (BMI) 36.5 36.5 [facility] ID Date Data Source [id number] 02/06/2021 01:12:00 PM EDT [facility] Name Value Range Interpretation Code Description Data Source(s) Weight (Calculated Kilograms) 106.96 106.96 [facility] Temperature 97.3 97.3 [facility] Respiratory Rate 16 16 [facility] Pulse Rate 76 76 [facility] Height (Calculated Centimeters) 160.02 160. 02 [facility] Blood Pressure 138/76 138/76 [facility] Body Mass Index (BMI) 41.8 41.8 [facility] Weight (Calculated Kilograms) 106.96 106.96 [facility] Height (Calculated Centimeters) 160.02 160. 02 [facility] Body Mass Index (BMI) 41.8 41.8 [facility] Weight (Calculated Kilograms) 106.96 106.96 [facility] Height (Calculated Centimeters) 160.02 160. 02 [facility] Body Mass Index (BMI) 41.8 41.8 [facility] ID Date Data Source [id number] 02/10/2021 10:26:00 AM [facility] Value Range Interpretation Code Description Data Source(s) Weight (Calculated Kilograms) 93.58 93.58 [facility] Height (Calculated Centimeters) 160.02 160. 02 [facility] Body Mass Index (BMI) 36.5 36.5 [facility] Weight (Calculated Kilograms) 93.58 93.58 [facility] Height (Calculated Centimeters) 160.02 160. 02 [facility] Body Mass Index (BMI) 36.5 365 [facility] Weight (Calculated Kilograms) 93.58 93.58 [facility] Height (Calculated Centimeters) 160.02 160. 02 [facility] Body Mass Index (BMI) 36.5 36.5 [facility] ID Date Data Source [id number] 01/25/2021 12:01[facility] [facility] Range Interpretation Code Description Data Source(s) Weight (Calculated Kilograms) 93.58 93.58 [facility] Height (Calculated Centimeters) 160.02 160. 02 [facility] Body Mass Index (BMI) 36.[address] ID Date Data Source [id number] 01/21/2021 05:19:00 PM EDT [facility] Name Value Range Interpretation Code Description Data Source(s) Weight Measurement Method 8 8 [facility] Weight (Calculated Kilograms) 93.58 93.58 [facility] Weight 3920 3920 [facility] pital Temperature Source 7 7 [facility] Temperature 97.8 97.8 [facility] Respiratory Rate 16 16 [facility] Pulse Rate 96 96 [facility] pital Height (Calculated Centimeters) 160.02 160. 02 [facility] Height 63 63 [facility] pital Blood Pressure 144/78 144/78 [facility] Body Mass Index (BMI) 36.[address] Weight Measurement Method 8 8 [facility] Weight (Calculated Kilograms) 93.58 93.58 [facility] Weight 3920 3920 [facility] pital Temperature Source 7 7 [facility] Temperature 97.8 97.8 [facility] Respiratory Rate 16 16 [facility] Pulse Rate 96 96 [facility] pital Height (Calculated Centimeters) 160.02 160. 02 [facility] 63 [facility] 144/78 144/78 [facility] Body Mass Index (BMI) 36.[address] Weight (Calculated Kilograms) 93.58 93.58 [facility] Height (Calculated Centimeters) 160.02 160. 02 [facility] Body Mass Index (BMI) 36.[address] Weight (Calculated Kilograms) 93.58 93.58 [facility] Height (Calculated Centimeters) 160.02 160. 02 [facility] Body Mass Index (BMI) 36.5 36.5 [facility] ID Date Data Source [id number] 01/20/2021 05:20:00 PM EDT [facility] Name Value Range Interpretation Code Description Data Source(s) Weight (Calculated Kilograms) 106.96 106.96 [facility] Height (Calculated Centimeters) 160.02 160. 02 [facility] Body Mass Index (BMI) 41.8 41.8 [facility] ID Date Data Source [id number] 01/21/2021 12:03:00 AM EDT [facility] Name Value Range Interpretation Code Description Data Source(s) Weight (Calculated Kilograms) 93.58 93.58 [facility] Height (Calculated Centimeters) 160.02 160. 02 [facility] Body Mass Index (BMI) 36.[address] ID Date Data Source [id number] 02/10/2021 04:52:00 PM EDT [facility] Name Value Range Interpretation Code Description Data Source(s) Weight (Calculated Kilograms) 93.58 93.58 [facility] Height (Calculated Centimeters) 160.02 160. 02 [facility] Body Mass Index (BMI) 36.[address] [place] [address] Weight (Calculated Kilograms) 93.58 93.58 [facility] Height (Calculated Centimeters) 160.02 160. 02 [facility] Body Mass Index (BMI) [address] [place] [address] Weight (Calculated Kilograms) 93.58 93.58 [facility] Height (Calculated Centimeters) 160.02 160. 02 [facility] Body Mass Index (BMI) 36.[address] [place] [address] Weight (Calculated Kilograms) 93.58 93.58 [facility] Height (Calculated Centimeters) 160.02 160. 02 [facility] Body Mass Index (BMI) 36.[address] Weight (Calculated Kilograms) 93.58 93.58 [facility] Height (Calculated Centimeters) 160.02 160. 02 [facility] Body Mass Index (BMI) 36.[address] [place] [address] Weight (Calculated Kilograms) 93.58 93.58 [facility] Height (Calculated Centimeters) 160.02 160. 02 [facility] Body Mass Index (BMI) 36.5 36.5 [facility] ID Date Data Source [id number] 01/23/2021 03:19:00 PM EDT [facility] Name Value Range Interpretation Code Description Data Source(s) Weight (Calculated Kilograms) 106.96 106.96 [facility] Height (Calculated Centimeters) 160.02 160. 02 [facility] Body Mass Index (BMI) 41.8 41.8 [facility] Weight (Calculated Kilograms) 106.96 106.96 [facility] Height (Calculated Centimeters) 160.02 160. 02 [facility] Body Mass Index (BMI) 41.8 41.8 [facility] ID Date Data Source [id number] 01/16/2021 06:47:00 PM EDT [facility] Name Value Range Interpretation Code Description Data Source(s) Weight (Calculated Kilograms) 106.96 106.96 [facility] Height (Calculated Centimeters) 160.02 160. 02 [facility] Body Mass Index (BMI) 41.8 41.8 [facility] ID Date Data Source [id number] 01/22/2021 07:11:00 AM EDT [facility] Name Value Range Interpretation Code Description Data Source(s) Weight (Calculated Kilograms) 106.96 106.96 [facility] Height (Calculated Centimeters) 160.02 160. 02 [facility] Body Mass Index (BMI) 41.8 41.8 [facility] Weight (Calculated Kilograms) 106.96 106.96 [facility] Height (Calculated Centimeters) 160.02 160. 02 [facility] Body Mass Index (BMI) 41.8 41.8 [facility] ID Date Data Source [id number] 01/14/2021 12:03:00 AM EDT [facility] Name Value Range Interpretation Code Description Data Source(s) Weight (Calculated Kilograms) 93.58 93.58 [facility] Height (Calculated Centimeters) 160.02 160. 02 [facility] Body Mass Index (BMI) 36.5 36.5 [facility] ID Date Data Source [id number] 01/14/2021 12:22:00 PM EDT [facility] Name Value Range Interpretation Code Description Data Source(s) Weight (Calculated Kilograms) 106.96 106.96 [facility] Height (Calculated Centimeters) 160.02 160. 02 [facility] Body Mass Index (BMI) 41.8 41.8 [facility] Weight (Calculated Kilograms) 106.96 106.96 [facility] Height (Calculated Centimeters) 160.02 160. 02 [facility] Body Mass Index (BMI) 41.8 41.8 [facility] Weight (Calculated Kilograms) 106.96 106.96 [facility] Height (Calculated Centimeters) 160.02 160. 02 [facility] Body Mass Index (BMI) 41.8 41.8 [facility] ID Date Data Source [id number] 01/08/2021 01:21:00 PM EDT [facility] Name Value Range Interpretation Code Description Data Source(s) Weight Measurement Method 1 1 [facility] Weight (Calculated Kilograms) 106.96 106.96 [facility] Weight 4032 4032 [facility] Temperature 97.2 97.2 [facility] Respiratory Rate 16 16 [facility] Pulse Rate 67 67 [facility] Height (Calculated Centimeters) 160.02 160. 02 [facility] Height 63 63 [facility] Blood Pressure 108/63 108/63 [facility] Body Mass Index (BMI) 41.8 41.8 [facility] Weight (Calculated Kilograms) 106.96 106.96 [facility] Height (Calculated Centimeters) 160.02 160. 02 [facility] Body Mass Index (BMI) 41.8 41.8 [facility] Weight (Calculated Kilograms) 106.96 106.96 [facility] Height (Calculated Centimeters) 160.02 160. 02 [facility] Body Mass Index (BMI) 41.8 41.8 [facility] ID Date Data Source [id number] 01/09/2021 12:02:00 AM EDT [facility] Name Value Range Interpretation Code Description Data Source(s) Weight (Calculated Kilograms) 106.96 106.96 [facility] Height (Calculated Centimeters) 160.02 160. 02 [facility] Body Mass Index (BMI) 41.8 41.8 [facility] ID Date Data Source [id number] 01/17/2021 07:07:00 AM EDT [facility] Name Value Range Interpretation Code Description Data Source(s) Weight (Calculated Kilograms) 106.96 106.96 [facility] Weight 3856 3856 [facility] Temperature 97.3 97.3 [facility] Respiratory Rate 16 16 [facility] Pulse Rate 72 72 [facility] Height (Calculated Centimeters) 160.02 160. 02 [facility] Height 63.5 63.5 [facility] Blood Pressure 106/68 106/68 [facility] Body Mass Index (BMI) 41.8 41.8 [facility] Weight (Calculated Kilograms) 106.96 106.96 [facility] Weight 3856 3856 [facility] Temperature 97.3 97.3 [facility] Respiratory Rate 16 16 [facility] Pulse Rate 72 72 [facility] Height (Calculated Centimeters) 160.02 160. 02 [facility] Height 63.5 63.5 [facility] Blood Pressure 106/68 106/68 [facility] Body Mass Index (BMI) 41.8 41.8 [facility] Weight (Calculated Kilograms) 106.96 106.96 [facility] Height (Calculated Centimeters) 160.02 160. 02 [facility] Body Mass Index (BMI) 41.8 41.8 [facility] ID Date Data Source [id number] 03/24/2021 01:28:00 PM EDT [facility] Name Value Range Interpretation Code Description Data Source(s) Weight (Calculated Kilograms) 106.96 106.96 [facility] Height (Calculated Centimeters) 160.02 160. 02 [facility] Body Mass Index (BMI) 41.8 41.8 [facility] ID Date Data Source [id number] 01/27/2021 11:20:00 AM [facility] Hospital Name Value Range Interpretation Code Description Data Source(s) Weight (Calculated Kilograms) 106.96 106.96 [facility] Height (Calculated Centimeters) 160.02 160. 02 [facility] Body Mass Index (BMI) 41.8 41.8 [facility] ID Date Data Source [id number] 12/28/2020 07:45:00 PM [facility] Name Value Range Interpretation Code Description Data Source(s) Weight (Calculated Kilograms) 106.96 106.96 [facility] Height (Calculated Centimeters) 160.02 160. 02 [facility] Body Mass Index (BMI) 41.8 41.8 [facility] ID Date Data Source [id number] 12/20/2020 09:28:[address] [facility] Name Value Range Interpretation Code Description Data Source(s) Weight (Calculated Kilograms) 106.96 106.96 [facility] Height (Calculated Centimeters) 160.02 160. 02 [facility] Body Mass Index (BMI) 41.8 41.8 [facility] ID Date Data Source [id number] 12/21/2020 12:07:00 AM [facility] Name Value Range Interpretation Code Description Data Source(s) Weight (Calculated Kilograms) 93.58 93.58 [facility] Height (Calculated Centimeters) 160.02 160. 02 [facility] Body Mass Index (BMI) 36.5 36.5 [facility] ID Date Data Source [id number] 01/27/2021 11:20:00 AM [facility] Name Value Range Interpretation Code Description Data Source(s) Weight (Calculated Kilograms) 106.96 106.96 [facility] Height (Calculated Centimeters) 160.02 160. 02 [facility] Body Mass Index (BMI) 41.8 41.8 [facility] ID Date Data Source [id number] 12/11/2020 08:09:[address] [facility] Name Value Range Interpretation Code Description Data Source(s) Weight (Calculated Kilograms) 106.96 106.96 [facility] Height (Calculated Centimeters) 160.02 160. 02 [facility] Body Mass Index (BMI) 41.8 41.8 [facility] Weight Measurement Method 1 1 [facility] Weight (Calculated Kilograms) 106.96 106.96 [facility] Weight 3952 3952 [facility] Temperature 97 97 [facility] Respiratory Rate 16 16 [facility] Pulse Rate 85 85 [facility] Height (Calculated Centimeters) 160.02 160. 02 [facility] Height 64 64 [facility] Blood Pressure 110/60 110/60 [facility] Body Mass Index (BMI) 41.8 41.8 [facility] Weight (Calculated Kilograms) 106.96 106.96 [facility] Height (Calculated Centimeters) 160.02 160. 02 [facility] Body Mass Index (BMI) 41.8 41.8 [facility] ID Date Data Source [id number] 01/20/2021 12:43:00 PM EDT [facility] Name Value Range Interpretation Code Description Data Source(s) Weight (Calculated Kilograms) 106.96 106.96 [facility] Height (Calculated Centimeters) 160.02 160. 02 [facility] Body Mass Index (BMI) 41.8 41.8 [facility] ID Date Data Source [id number] 12/09/2020 01:23:00 PM EST [facility] Name Value Range Interpretation Code Description Data Source(s) Weight Measurement Method 8 8 [facility] Weight (Calculated Kilograms) 93.58 93.58 [facility] Weight 3920 3920 [facility] pital Temperature Source 7 7 [facility] Temperature 96.8 96.8 [facility] Respiratory Effort 1 1 [facility] Respiratory Rate 18 18 [facility] Pulse Assessment Method 4 4 G [facility] Pulse Rate 80 80 [facility] pital Height (Calculated Centimeters) 160.02 160. 02 [facility] 63 63 [facility] 134/80 134/80 [facility] Body Mass Index (BMI) 36.5 36.5 [facility] Weight Measurement Method 8 8 [facility] Weight (Calculated Kilograms) 93.58 93.58 [facility] Weight 3920 3920 [facility] pital Temperature Source 7 7 [facility] Temperature 96.8 96.8 [facility] Respiratory Effort 1 1 [facility] Respiratory Rate 18 18 [facility] Pulse Assessment Method 4 4 G [facility] Pulse Rate 99 99 [facility] pital Height (Calculated Centimeters) 160.02 160. 02 [facility] Height 63 63 [facility] Pressure 144/88 144/88 [facility] Body Mass Index (BMI) 36.[address] Weight (Calculated Kilograms) 93.58 93.58 [facility] Height (Calculated Centimeters) 160.02 160. 02 [facility] Body Mass Index (BMI) 36.[address] ID Date Data Source [id number] 12/06/2020 01:44:00 PM [facility] Name Value Range Interpretation Code Description Data Source(s) Weight (Calculated Kilograms) 93.58 93.58 [facility] Height (Calculated Centimeters) 160.02 160. 02 [facility] Body Mass Index (BMI) 36.[address] ID Date Data Source [id number] 11/28/2020 08:38:[address] [facility] Name Value Range Interpretation Code Description Data Source(s) Weight (Calculated Kilograms) 106.96 106.96 [facility] Height (Calculated Centimeters) 160.02 160. 02 [facility] Body Mass Index (BMI) 41.8 41.8 [facility] ID Date Data Source [id number] 11/28/2020 12:18:00 PM EST [facility] Name Value Range Interpretation Code Description Data Source(s) Weight (Calculated Kilograms) 93.58 93.58 [facility] Height (Calculated Centimeters) 160.02 160. 02 [facility] Body Mass Index (BMI) 36.5 36.5 [facility] Weight (Calculated Kilograms) 93.58 93.58 [facility] Height (Calculated Centimeters) 160.02 160. 02 [facility] Body Mass Index (BMI) 36.5 36.5 [facility] ID Date Data Source [id number] 11/22/2020 01:11:00 AM EST [facility] Name Value Range Interpretation Code Description Data Source(s) Weight (Calculated Kilograms) 106.96 106.96 [facility] Height (Calculated Centimeters) 160.02 160. 02 [facility] Body Mass Index (BMI) 41.8 41.8 [facility] ID Date Data Source [id number] 01/06/2021 12:26:00 PM EDT [facility] Name Value Range Interpretation Code Description Data Source(s) Weight (Calculated Kilograms) 106.96 106.96 [facility] Height (Calculated Centimeters) 160.02 160. 02 [facility] Body Mass Index (BMI) 41.8 41.8 [facility] ID Date Data Source [id number] 11/15/2020 12:45:00 PM EST [facility] Name Value Range Interpretation Code Description Data Source(s) Weight (Calculated Kilograms) 106.96 106.96 [facility] Height (Calculated Centimeters) 160.02 160. 02 [facility] Body Mass Index (BMI) 41.8 41.8 [facility] ID Date Data Source [id number] 11/14/2020 05:06:00 PM [facility] Hospital Name Value Range Interpretation Code Description Data Source(s) Weight Measurement Method 1 1 [facility] Weight (Calculated Kilograms) 106.96 106.96 [facility] Weight 3920 3920 [facility] Temperature 97 97 [facility] Respiratory Rate 16 16 [facility] Pulse Rate 62 62 [facility] Height (Calculated Centimeters) 160.02 160. 02 [facility] Height 63 63 [facility] Blood Pressure 104/66 104/66 [facility] Body Mass Index (BMI) 41.8 41.8 [facility] Weight (Calculated Kilograms) 106.96 106.96 [facility] Height (Calculated Centimeters) 160.02 160. 02 [facility] Body Mass Index (BMI) 41.8 41.8 [facility] ID Date Data Source [id number] 11/08/2020 02:04:00 PM EST [facility] Name Value Range Interpretation Code Description Data Source(s) Weight (Calculated Kilograms) 93.58 93.58 [facility] Height (Calculated Centimeters) 160.02 160. 02 [facility] Body Mass Index (BMI) 36.5 36.5 [facility] ID Date Data Source [id number] 11/02/2020 03:02:00 PM EST [facility] Name Value Range Interpretation Code Description Data Source(s) Weight (Calculated Kilograms) 106.96 106.96 [facility] Height (Calculated Centimeters) 160.02 160. 02 [facility] Body Mass Index (BMI) 41.8 41.8 [facility] Weight (Calculated Kilograms) 106.96 106.96 [facility] Height (Calculated Centimeters) 160.02 160. 02 [facility] Body Mass Index (BMI) 41.8 41.8 [facility] Weight (Calculated Kilograms) 106.96 106.96 [facility] Height (Calculated Centimeters) 160.02 160. 02 [facility] Body Mass Index (BMI) 41.8 41.8 [facility] ID Date Data Source [id number] 11/18/2020 09:18:00 AM EST [facility] Name Value Range Interpretation Code Description Data Source(s) Weight Measurement Method 1 1 [facility] Weight (Calculated Kilograms) 106.96 106.96 [facility] Weight 3904 3904 [facility] Temperature 97.3 97.3 [facility] Respiratory Rate 16 16 [facility] Pulse Rate 78 78 [facility] Height (Calculated Centimeters) 160.02 160. 02 [facility] Height 63 63 [facility] Blood Pressure 132/87 132/87 [facility] Body Mass Index (BMI) 41.8 41.8 [facility] Weight Measurement Method 1 1 [facility] Weight (Calculated Kilograms) 106.96 106.96 [facility] Weight 3904 3904 [facility] Temperature 97.3 97.3 [facility] Respiratory Rate 16 16 [facility] Pulse Rate 78 78 [facility] Height (Calculated Centimeters) 160.02 160. 02 [facility] Height 63 63 [facility] Blood Pressure 132/87 132/87 [facility] Body Mass Index (BMI) 41.8 41.8 [facility] Weight (Calculated Kilograms) 106.96 106.96 [facility] Height (Calculated Centimeters) 160.02 160. 02 [facility] Body Mass Index (BMI) 41.8 41.8 [facility] ID Date Data Source [id number] 10/18/2020 12:32:00 AM EST [facility] Name Value Range Interpretation Code Description Data Source(s) Weight (Calculated Kilograms) 106.96 106.96 [facility] Height (Calculated Centimeters) 160.02 160. 02 [facility] Body Mass Index (BMI) 41.8 41.8 [facility] ID Date Data Source [id number] 10/18/2020 11:42:00 AM EST [facility] Name Value Range Interpretation Code Description Data Source(s) Weight (Calculated Kilograms) 106.96 106.96 [facility] Height (Calculated Centimeters) 160.02 160. 02 [facility] Body Mass Index (BMI) 41.8 41.8 [facility] Weight (Calculated Kilograms) 106.96 106.96 [facility] Height (Calculated Centimeters) 160.02 160. 02 [facility] Body Mass Index (BMI) 41.8 41.8 [facility] ID Date Data Source [id number] 10/08/2020 12:05:00 AM EST [facility] Name Value Range Interpretation Code Description Data Source(s) Weight (Calculated Kilograms) 93.58 93.58 [facility] Height (Calculated Centimeters) 160.02 160. 02 [facility] Body Mass Index (BMI) 36.5 36.5 [facility] ID Date Data Source [id number] 11/04/2020 08:53:00 AM [facility] Hospital Name Value Range Interpretation Code Description Data Source(s) Weight (Calculated Kilograms) 106.96 106.96 [facility] Height (Calculated Centimeters) 160.02 160. 02 [facility] Body Mass Index (BMI) 41.8 41.8 [facility] ID Date Data Source [id number] 09/23/2020 11:52:00 PM [facility] Hospital Name Value Range Interpretation Code Description Data Source(s) Weight (Calculated Kilograms) 106.96 106.96 [facility] Height (Calculated Centimeters) 160.02 160. 02 [facility] Body Mass Index (BMI) 41.8 41.8 [facility] ID Date Data Source [id number] 09/24/2020 06:41:[address] [facility] Name Value Range Interpretation Code Description Data Source(s) Weight (Calculated Kilograms) 106.96 106.96 [facility] Height (Calculated Centimeters) 160.02 160. 02 [facility] Body Mass Index (BMI) 41.8 41.8 [facility] Weight Measurement Method 1 1 [facility] Weight (Calculated Kilograms) 106.96 106.96 [facility] Weight 3928.0 3928.0 [facility] Temperature 97.4 97.4 [facility] Respiratory Rate 16 16 [facility] Pulse Rate 74 74 [facility] Height (Calculated Centimeters) 160.02 160. 02 [facility] Height 63 63 [facility] Blood Pressure 122/70 122/70 [facility] Body Mass Index (BMI) 41.8 41.8 [facility] Weight Measurement Method 1 1 [facility] Weight (Calculated Kilograms) 106.96 106.96 [facility] Weight 3928.0 3928.0 [facility] Temperature 97.4 97.4 [facility] Respiratory Rate 16 16 [facility] Pulse Rate 74 74 [facility] Height (Calculated Centimeters) 160.02 160. 02 [facility] Height 63 63 [facility] Blood Pressure 122/70 122/70 [facility] Body Mass Index (BMI) 41.8 41.8 [facility] Weight (Calculated Kilograms) 106.96 106.96 [facility] Height (Calculated Centimeters) 160.02 160. 02 [facility] Body Mass Index (BMI) 41.8 41.8 [facility] ID Date Data Source [id number] 08/27/2020 12:19:00 AM [facility] Hospital Name Value Range Interpretation Code Description Data Source(s) Weight (Calculated Kilograms) 106.96 106.96 [facility] Height (Calculated Centimeters) 160.02 160. 02 [facility] Body Mass Index (BMI) 41.8 41.8 [facility] ID Date Data Source [id number] 09/23/2020 04:57:[address] [facility] Name Value Range Interpretation Code Description Data Source(s) Weight (Calculated Kilograms) 106.96 106.96 [facility] Respiratory Rate 18 18 [facility] Pulse Assessment Method 4 4 [facility] Pulse Rate 73 73 [facility] Height (Calculated Centimeters) 160.02 160. 02 [facility] Blood Pressure 138/72 138/72 [facility] Body Mass Index (BMI) 41.8 41.8 [facility] Weight (Calculated Kilograms) 106.96 106.96 [facility] Respiratory Rate 18 18 [facility] Pulse Assessment Method 4 4 [facility] Pulse Rate 73 73 [facility] Height (Calculated Centimeters) 160.02 160. 02 [facility] Blood Pressure 138/72 138/72 [facility] Body Mass Index (BMI) 41.8 41.8 [facility] Weight (Calculated Kilograms) 106.96 106.96 [facility] Height (Calculated Centimeters) 160.02 160. 02 [facility] Body Mass Index (BMI) 41.8 41.8 [facility] ID Date Data Source [id number] 10/02/2020 01:21:00 PM [facility] Hospital Name Value Range Interpretation Code Description Data Source(s) Weight (Calculated Kilograms) 106.96 106.96 [facility] Height (Calculated Centimeters) 160.02 160. 02 [facility] Body Mass Index (BMI) 41.8 41.8 [facility] Weight (Calculated Kilograms) 106.96 106.96 [facility] Height (Calculated Centimeters) 160.02 160. 02 [facility] Body Mass Index (BMI) 41.8 41.8 [facility] ID Date Data Source [id number] 08/23/2020 06:04:00 AM [facility] Name Value Range Interpretation Code Description Data Source(s) Weight (Calculated Kilograms) 93.58 93.58 [facility] Height (Calculated Centimeters) 160.02 160. 02 [facility] Body Mass Index (BMI) 36.[address] Weight (Calculated Kilograms) 93.58 93.58 [facility] Height (Calculated Centimeters) 160.02 160. 02 [facility] Body Mass Index (BMI) 36.[address] ID Date Data Source [id number] 09/23/2020 08:53:[address] [facility] Name Value Range Interpretation Code Description Data Source(s) Weight (Calculated Kilograms) 106.96 106.96 [facility] Height (Calculated Centimeters) 160.02 160. 02 [facility] Body Mass Index (BMI) 41.8 41.8 [facility] ID Date Data Source [id number] 09/23/2020 08:24:00 AM EST [facility] Name Value Range Interpretation Code Description Data Source(s) Weight (Calculated Kilograms) 93.58 93.58 [facility] Height (Calculated Centimeters) 160.02 160. 02 [facility] Body Mass Index (BMI) 36.5 365 [facility] Weight (Calculated Kilograms) 93.58 93.58 [facility] Height (Calculated Centimeters) 160.02 160. 02 [facility] Body Mass Index (BMI) 36.5 36.5 [facility] Weight (Calculated Kilograms) 93.58 93.58 [facility] Height (Calculated Centimeters) 160.02 160. 02 [facility] Body Mass Index (BMI) 36.[address] [place] [address] ID Date Data Source [id number] 10/10/2020 12:18:00 AM EST [facility] Name Value Range Interpretation Code Description Data Source(s) Weight (Calculated Kilograms) 93.58 93.58 [facility] Height (Calculated Centimeters) 160.02 160. 02 [facility] Body Mass Index (BMI) 36.5 36.5 [facility] ID Date Data Source [id number] 07/19/2020 02:54:00 PM EDT [facility] Name Value Range Interpretation Code Description Data Source(s) Weight (Calculated Kilograms) 106.96 106.96 [facility] Height (Calculated Centimeters) 160.02 160. 02 [facility] Body Mass Index (BMI) 41.8 41.8 [facility] ID Date Data Source [id number] 07/19/2020 03:04:00 PM EDT [facility] Name Value Range Interpretation Code Description Data Source(s) Weight (Calculated Kilograms) 93.58 93.58 [facility] Height (Calculated Centimeters) 160.02 160. 02 [facility] Body Mass Index (BMI) 36.[address] ID Date Data Source [id number] 07/15/2020 07:52:00 PM [facility] Name Value Range Interpretation Code Description Data Source(s) Weight (Calculated Kilograms) 106.96 106.96 [facility] Height (Calculated Centimeters) 160.02 160. 02 [facility] Body Mass Index (BMI) 41.8 41.8 [facility] ID Date Data Source [id number] 07/12/2020 04:00:00 PM T [facility] Name Value Range Interpretation Code Description Data Source(s) Weight (Calculated Kilograms) 93.58 93.58 [facility] Height (Calculated Centimeters) 160.02 160. 02 [facility] Body Mass Index (BMI) 36.5 365 [facility] Weight (Calculated Kilograms) 93.58 93.58 [facility] Height (Calculated Centimeters) 160.02 160. 02 [facility] Body Mass Index (BMI) 36.5 36.5 [facility] ID Date Data Source [id number] 07/05/2020 10:51:00 AM EDT [facility] Name Value Range Interpretation Code Description Data Source(s) Weight Measurement Method 8 8 [facility] Weight (Calculated Kilograms) 93.58 93.58 [facility] Weight 4000 4000 [facility] pital Temperature Source 3 3 [facility] Temperature 98.3 98.3 [facility] Respiratory Effort 1 1 [facility] Respiratory Rate 22 22 [facility] Pulse Assessment Method 4 4 G [facility] Pulse Rate 75 75 [facility] pital Height (Calculated Centimeters) 160.02 160. 02 [facility] Height 63 63 [facility] pital Blood Pressure 102/78 102/78 [facility] Body Mass Index (BMI) 36.5 365 [facility] Weight Measurement Method 8 8 [facility] Weight (Calculated Kilograms) 93.58 93.58 [facility] Weight 4000 4000 [facility] pital Temperature Source 7 7 [facility] Temperature 97.0 97.0 [facility] Respiratory Effort 1 1 [facility] Respiratory Rate 17 17 [facility] Pulse Assessment Method 4 4 G [facility] Pulse Rate 92 92 [facility] pital Height (Calculated Centimeters) 160.02 160. 02 [facility] Height 63 63 [facility] pital Blood Pressure 116/98 116/98 [facility] Body Mass Index (BMI) 36.5 365 [facility] Weight Measurement Method 8 8 [facility] Weight (Calculated Kilograms) 93.58 93.58 [facility] Weight 4000 4000 [facility] pital Temperature Source 7 7 [facility] Temperature 97.0 97.0 [facility] Respiratory Effort 1 1 [facility] Respiratory Rate 17 17 [facility] Pulse Assessment Method 4 4 G [facility] Pulse Rate 92 92 [facility] pital Height (Calculated Centimeters) 160.02 160. 02 [facility] 63 63 [facility] Pressure 116/98 116/98 [facility] Body Mass Index (BMI) 36.5 36.5 [facility] Weight (Calculated Kilograms) 93.58 93.58 [facility] Height (Calculated Centimeters) 160.02 160. 02 [facility] Body Mass Index (BMI) 36.5 36.5 [facility] ID Date Data Source [id number] 06/30/2020 11:38:00 PM EDT [facility] Name Value Range Interpretation Code Description Data Source(s) Weight (Calculated Kilograms) 106.96 106.96 [facility] Height (Calculated Centimeters) 160.02 160. 02 [facility] Body Mass Index (BMI) 41.8 41.8 [facility] ID Date Data Source [id number] 07/01/2020 07:18:00 AM EDT [facility] Name Value Range Interpretation Code Description Data Source(s) Weight (Calculated Kilograms) 93.58 93.58 [facility] Height (Calculated Centimeters) 160.02 160. 02 [facility] Body Mass Index (BMI) 36.5 365 [facility] ID Date Data Source [id number] 08/05/2020 09:57:00 AM EDT [facility] Name Value Range Interpretation Code Description Data Source(s) Weight (Calculated Kilograms) 106.96 106.96 [facility] Height (Calculated Centimeters) 160.02 160. 02 [facility] Body Mass Index (BMI) 41.8 41.8 [facility] ID Date Data Source [id number] 10/02/2020 01:20:00 PM EST [facility] Name Value Range Interpretation Code Description Data Source(s) Weight (Calculated Kilograms) 106.96 106.96 [facility] Height (Calculated Centimeters) 160.02 160. 02 [facility] Body Mass Index (BMI) 41.8 41.8 [facility] Weight Measurement Method 1 1 [facility] Weight (Calculated Kilograms) 106.96 106.96 [facility] Weight 4096 4096 [facility] Temperature 98.1 98.1 [facility] Respiratory Rate 16 16 [facility] Pulse Rate 60 60 [facility] Height (Calculated Centimeters) 160.02 160. 02 [facility] Height 64 64 [facility] Blood Pressure 124/66 124/66 [facility] Body Mass Index (BMI) 41.8 41.8 [facility] Weight Measurement Method 1 1 [facility] Weight (Calculated Kilograms) 106.96 106.96 [facility] Weight 4096 4096 [facility] Temperature 98.1 98.1 [facility] Respiratory Rate 16 16 [facility] Pulse Rate 60 60 [facility] Height (Calculated Centimeters) 160.02 160. 02 [facility] Height 64 64 [facility] Blood Pressure 124/66 124/66 [facility] Body Mass Index (BMI) 41.8 41.8 [facility] Weight (Calculated Kilograms) 106.96 106.96 [facility] Height (Calculated Centimeters) 160.02 160. 02 [facility] Body Mass Index (BMI) 41.8 41.8 [facility] ID Date Data Source [id number] 07/26/2020 11:58:00 AM EDT [facility] Name Value Range Interpretation Code Description Data Source(s) Weight (Calculated Kilograms) 106.96 106.96 [facility] Height (Calculated Centimeters) 160.02 160. 02 [facility] Body Mass Index (BMI) 41.8 41.8 [facility] ID Date Data Source [id number] 10/02/2020 01:20:00 PM EST [facility] Name Value Range Interpretation Code Description Data Source(s) Weight (Calculated Kilograms) 106.96 106.96 [facility] Height (Calculated Centimeters) 160.02 160. 02 [facility] Body Mass Index (BMI) 41.8 41.8 [facility] Weight Measurement Method 1 1 [facility] Weight (Calculated Kilograms) 106.96 106.96 [facility] Weight 3968 3968 [facility] Temperature 97.8 97.8 [facility] Respiratory Rate 16 16 [facility] Pulse Rate 74 74 [facility] Height (Calculated Centimeters) 160.02 160. 02 [facility] Height 63 63 [facility] Blood Pressure 128/74 128/74 [facility] Body Mass Index (BMI) 41.8 41.8 [facility] Weight Measurement Method 1 1 [facility] Weight (Calculated Kilograms) 106.96 106.96 [facility] Weight 3968 3968 [facility] Temperature 97.8 97.8 [facility] Respiratory Rate 16 16 [facility] Pulse Rate 74 74 [facility] Height (Calculated Centimeters) 160.02 160. 02 [facility] Height 63 63 [facility] Blood Pressure 128/74 128/74 [facility] Body Mass Index (BMI) 41.8 41.8 [facility] Weight (Calculated Kilograms) 106.96 106.96 [facility] Height (Calculated Centimeters) 160.02 160. 02 [facility] Body Mass Index (BMI) 41.8 41.8 [facility] Weight (Calculated Kilograms) 106.96 106.96 [facility] Height (Calculated Centimeters) 160.02 160. 02 [facility] Body Mass Index (BMI) 41.8 41.8 [facility] ID Date Data Source [id number] 07/16/2020 09:56:00 AM EDT [facility] Name Value Range Interpretation Code Description Data Source(s) Weight (Calculated Kilograms) 106.96 106.96 [facility] Height (Calculated Centimeters) 160.02 160. 02 [facility] Body Mass Index (BMI) 41.8 41.8 [facility] Weight Measurement Method 1 1 [facility] Weight (Calculated Kilograms) 106.96 106.96 [facility] Weight 3872 3872 [facility] Temperature 97.1 97.1 [facility] Respiratory Rate 16 16 [facility] Pulse Rate 68 68 [facility] Height (Calculated Centimeters) 160.02 160. 02 [facility] Height 63 63 [facility] Blood Pressure 126/79 126/79 [facility] Body Mass Index (BMI) 41.8 41.8 [facility] Weight Measurement Method 1 1 [facility] Weight (Calculated Kilograms) 106.96 106.96 [facility] Weight 3872 3872 [facility] Temperature 97.1 97.1 [facility] Respiratory Rate 16 16 [facility] Pulse Rate 68 68 [facility] Height (Calculated Centimeters) 160.02 160. 02 [facility] Height 63 63 [facility] Blood Pressure 126/79 126/79 [facility] Body Mass Index (BMI) 41.8 41.8 [facility] Weight (Calculated Kilograms) 106.96 106.96 [facility] Height (Calculated Centimeters) 160.02 160. 02 [facility] Body Mass Index (BMI) 41.8 41.8 [facility]
[2021-08-30] MEDS ORDERED: KETOROLAC 30 MG/ML 1ML VIAL IV ONE (05:10)
[2021-08-30] MEDS ORDERED: ISOVUE-370 76% 100ML VIAL As Ordered ONE (05:34)
[2021-08-30 05:50] LABS: BASO # 0.1 10^3/uL (0.0-0.2); BASO % 0.3 % (0.0-1.0); EOS # 0.1 10^3/uL (0.0-0.5); EOS % 0.6 % (0.0-3.0); HEMATOCRIT 40.7 % (36.0-47.0); HEMOGLOBIN 13.4 g/dl (12.0-15.5); LYMPH # 3.1 10^3/uL (1.5-5.0); MEAN CORPUSCULAR HEMOGLOBIN 28.2 pg (27.0-33.0); MEAN CORPUSCULAR HGB CONC 32.9 g/dl (32.0-36.5); MEAN CORPUSCULAR VOLUME 85.5 fl (80.0-96.0); MONO # 1.2 10^3/uL (0.0-0.8); MONO % 7.6 % (2.0-8.0); NEUTROPHILS # 11.6 10^3/uL (1.5-8.5); NEUTROPHILS % 71.9 % (36.0-66.0); PLATELET COUNT, AUTOMATED 379 10^3/uL (150-450); RED BLOOD COUNT 4.76 10^6/uL (4.00-5.40); WHITE BLOOD COUNT 16.1 10^3/uL (4.0-10.0)
--- NOTE | 2021-08-30 06:05 | REPVR ---
PROCEDURE INFORMATION: Exam: CT Neck With Contrast Exam date and time: 08/30/2021 5:47 AM Age: 55 years old Clinical indication: Other: Right tongue swelling and pharyngitis; Prior surgery; Surgery date: <1 month; Surgery type: Pharyngeal dilation TECHNIQUE: Imaging protocol: Computed tomography images of the neck with contrast. Radiation optimization: All CT scans at this facility use at least one of these dose optimization techniques: automated exposure control; mA and/or kV adjustment per patient size (includes targeted exams where dose is matched to clinical indication); or iterative reconstruction. Contrast material: ISOVUE 370; Contrast volume: 75 ml; Contrast route: INTRAVENOUS (IV); COMPARISON: CT Neck without contrast 11/14/2016 10:25 PM FINDINGS: Nasopharynx: Unremarkable. Oropharynx: The right and left palatine tonsils are prominent. Hypopharynx: Unremarkable. Larynx: Unremarkable. Normal epiglottis. Retropharyngeal space: Unremarkable. Submandibular/Parotid glands: Normal. Glands are normal in size. Thyroid: The thyroid gland is heterogeneous likely containing a poorly defined 3.0 x 2.2 cm nodule on the left and 2.0 x 1.3 cm poorly defined nodule on the right. Lymph nodes: Prominent right level 2 lymph nodes are seen measuring 1.8 x 1.1 cm particularly on axial image 30 and sagittal image 31 asymmetrically more prominent than the left. Trachea: Visualized trachea is unremarkable. Lungs: Unremarkable as visualized. Bones/joints: Unremarkable. No acute fracture. Soft tissues: Unremarkable. No significant soft tissue swelling. IMPRESSION: 1. Prominent bilateral palatine tonsils with few prominent right level 2 cervical lymph nodes which could be reactive. Correlate clinically for tonsillitis. No fluid collection seen to suggest an abscess. 2. Heterogeneous thyroid gland likely containing poorly defined nodules measuring up to 3 cm on the left and 2 cm on the right. Correlation with thyroid ultrasound is suggested. COMMENTS: Consistent with the [employer]'s Incidental Findings Committee white paper (J Am Bryanna Radiol 2015): In patients aged 35 years and older with an incidental thyroid nodule equal to or greater than 1.[address], MRI or extrathyroidal US, further evaluation with dedicated thyroid US is recommended for patients with normal life expectancy and without comorbidities. For smaller nodules without suspicious features, no further evaluation or follow up is recommended. Electronically signed by: Mike Glover On 08/30/2021 06:05:17 AM
[2021-08-30] MEDS ORDERED: AMPICILLIN SOD/SULBACTAM SOD 3 GM in D5W MINI-BAG PLUS 100 ML IV ONE (07:25)
[2021-08-30] MEDS ORDERED: KETOROLAC 30 MG/ML 1ML VIAL IV PRN (07:35)
[2021-08-30] MEDS ORDERED: PERCOCET 5MG/325MG TAB PO PRN (07:35)
[2021-08-30] MEDS ORDERED: GABA600T4 PO (08:02)
[2021-08-30] MEDS ORDERED: VENTAER INH (08:02)
[2021-08-30] MEDS ORDERED: BIOT1CAP2 PO (08:02)
[2021-08-30] MEDS ORDERED: LOSA100T50 PO (08:02)
[2021-08-30] MEDS ORDERED: PANT40TA29 PO (08:02)
--- OUTSIDE RECORDS SUMMARY | 2021-08-30 08:02 | CCD ---
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 Name Role Phone Cruzito Epperson PT Unavailable Unavailable Cruzito Eppesron PT Unavailable Unavailable Cruzito Epperson PT Unavailable [...] R Anastacio PT Unavailable Unavailable Zeenat, R Anasatcio PT Unavailable Unavailable Zeenat, R Anastacio PT [...] Unavailable Morfin, L Andreas MD Unavailable Unavailable MorfinAubere nash MD Unavailable Unavailable MorfinAubree nash MD Unavailable Unavailable Aubree Morfin MD Unavailable Unavailable MorfinAubree nash MD Unavailable Unavailable MorfinAubree nash MD Unavailable Unavailable Morfin, Aubree Johns MD Unavailable Unavailable MorfinAubree nash MD Unavailable Unavailable MorfinAubree nash MD Unavailable Unavailable MorfinAubree nash MD Unavailable Unavailable MofrinAubree nash MD Unavailable Unavailable MorfinAubree nash MD [...] Unavailable Unavailable Malek, Radha Lopez MD Unavailable [phone] Malek, T Hamza MD Unavailable [phone] Malek, T Hamza MD Unavailable [phone] Malek, T Hamza MD Unavailable [phone] Malek, T Hamza MD Unavailable [phone] Malek, T Hamza MD Unavailable [phone] Malek, T Hamza MD Unavailable [phone] Malek, T Hamza MD Unavailable [phone] Malek, T Hamza MD Unavailable [phone] Malek, T Hamza MD Unavailable [phone] Malek, T Hamza MD Unavailable [phone] Malek, T Hamza MD Unavailable [phone] Malek, T Hamza MD Unavailable [phone] Malek, T Hamza MD Unavailable [phone] Malek, T Hamza MD Unavailable [phone] Malek, T Hamza MD Unavailable [phone] Malek, T Hamza MD Unavailable [phone] Malek, T Hamza MD Unavailable [phone] Malek, T Hamza MD Unavailable [phone] Malek, T Hamza MD Unavailable [phone] Malek, T Hamza MD Unavailable [phone] Malek, T Hamza MD Unavailable [phone] DELILAH (HERNANDO), Renata GARLAND MD Unavailable Unavailab [...] (HERNANDO), Renata GARLAND MD Unavailable Unavailab le DLEILAH (HERNANDO), Renata GARLAND MD Unavailable Unavailab le [...] Unavailable Unavailab le Mignon F Brown, F TOOL REPAIR TECHNICIAN TOOL REPAIR TECHNICIAN Unavailable Unavailable Mignon F Brown, F TOOL REPAIR TECHNICIAN TOOL REPAIR TECHNICIAN Unavailable Unavailable Glen Raven, Roosevelt DO Unavailable Unavailable Chau, Roosevelt DO Unavailable Unavailable [place] Raven, Roosevelt DO Unavailable Unavailable Chau, Roosevelt DO Unavailable Unavailable Fillmore, M Galina PA Unavailable Unavailable Fillmore, M Galina PA Unavailable Unavailable Fillmore, M Galina PA Unavailable Unavailable Fillmore, M Galina PA Unavailable Unavailable HINS, DAISY PA Unavailable Unavailable HINS, DAISY PA Unavailable Unavailable HINS, DAISY PA Unavailable Unavailable HINS, DAISY PA Unavailable Unavailable HINS, DAISY PA Unavailable Unavailable HINS, DAISY PA Unavailable Unavailable HINS, DAISY PA Unavailable Unavailable HINS, DAISY PA Unavailable Unavailable Baird, M Mona TOOL REPAIR TECHNICIAN Unavailable Unavailable Baird, M Mona TOOL REPAIR TECHNICIAN Unavailable Unavailable Baird, M Mona TOOL REPAIR TECHNICIAN Unavailable Unavailable Baird, M Mona TOOL REPAIR TECHNICIAN Unavailable Unavailable Baird, M Mona TOOL REPAIR TECHNICIAN Unavailable Unavailable Baird, M Mona TOOL REPAIR TECHNICIAN Unavailable Unavailable Baird, M Mona TOOL REPAIR TECHNICIAN Unavailable Unavailable Baird, M Mona TOOL REPAIR TECHNICIAN Unavailable Unavailable Baird, M Mona TOOL REPAIR TECHNICIAN Unavailable Unavailable Baird, M Mona TOOL REPAIR TECHNICIAN Unavailable Unavailable Hadian, Jesus Unavailable Unavailable Hadian, [...] Unavailable Unavailable Hadian, Jesus Unavailable Unavailable Hadian, Jessu Unavailable Unavailable Hadian, Jesus Unavailable Unavailable Hadian, [...] Cruz MD Unavailable Unavailable Strong, A Nelly TOOL REPAIR TECHNICIAN Unavailable Unavailable Strong, A Nelly TOOL REPAIR TECHNICIAN Unavailable Unavailable Strong, A Nelly TOOL REPAIR TECHNICIAN Unavailable Unavailable Strong, A Nelly TOOL REPAIR TECHNICIAN Unavailable Unavailable Strong, A Nelly TOOL REPAIR TECHNICIAN Unavailable Unavailable Strong, A Nelly TOOL REPAIR TECHNICIAN Unavailable Unavailable Strong, A Nelly TOOL REPAIR TECHNICIAN Unavailable Unavailable Strong, A Nelly TOOL REPAIR TECHNICIAN Unavailable Unavailable Strong, A Nelly TOOL REPAIR TECHNICIAN Unavailable Unavailable Strong, A Nelly TOOL REPAIR TECHNICIAN Unavailable Unavailable Strong, A Nelly TOOL REPAIR TECHNICIAN Unavailable Unavailable Strong, A Nelly TOOL REPAIR TECHNICIAN Unavailable Unavailable Strong, A Nelly TOOL REPAIR TECHNICIAN Unavailable Unavailable Strong, A Nelly TOOL REPAIR TECHNICIAN Unavailable Unavailable Strong, A Nelly TOOL REPAIR TECHNICIAN Unavailable Unavailable Strong, A Nelly TOOL REPAIR TECHNICIAN Unavailable Unavailable Strong, A Nelly TOOL REPAIR TECHNICIAN Unavailable Unavailable Strong, A Nelly TOOL REPAIR TECHNICIAN Unavailable Unavailable Strong, A Nelly TOOL REPAIR TECHNICIAN Unavailable Unavailable Strong, A Nelly TOOL REPAIR TECHNICIAN Unavailable Unavailable Strong, A Nelly TOOL REPAIR TECHNICIAN Unavailable Unavailable Aubree Cheng DO Unavailable Unavailable [...] Unavailable Kayla, Annie MD Unavailable Unavailable Kayla, Nanie MD Unavailable Unavailable Kayla, Annie MD Unavailable Unavailable Aleksey, [id number] MD Nma CHARLES Unavailable [phone] Aleksey, [id number] MD Nam CHARLES Unavailable [phone] Aleksey, [id number] MD Nam CHARLES Unavailable + [phone] [address], [id number] MD Nam CHARLES Unavailable + [phone] Alek[place], [id number] MD Nam MD Unavailable Aleksey, [id number] MD Nam MD Unavailable Aleksey, [id number] MD Nam MD Unavailable Aleksey, [id number] MD Nam MD Unavailable Aleksey, [id number] MD Nam MD Unavailable Aleksey, [id number] MD Nam MD Unavailable Aleksey, [id number] MD Nam MD Unavailable Aleksey, [id number] MD Nam MD Unavailable Aleksey, [id number] MD Nam MD Unavailable Aleksey, [id number] MD Nam MD Unavailable Aleksey, [id number] MD Nam MD Unavailable Aleksey, [id number] MD Nam MD Unavailable Aleksey, [id number] MD Nam MD Unavailable Aleksey, [id number] MD Nam MD Unavailable Aleksey, [id number] MD Nam MD Unavailable Aleksey, [id number] MD Nam MD Unavailable Aleksey, [id number] MD Nam MD Unavailable Aleksey, [id number] MD Nam MD Unavailable Aleksey, [id number] MD Nam MD Unavailable Aleksey, [id number] MD Nam MD Unavailable Aleksey, [id number] MD Nam MD Unavailable Aleksey, [id number] MD Nam MD Unavailable Aleksey, [id number] MD Nam MD Unavailable [phone] Aleksey, [id number] MD Nam CHARLES Unavailable [phone] Aleksey, [id number] MD Nam CHARLES Unavailable [phone], [id number] MD Nam CHARLES Unavailable [phone], [id number] MD Nam CHARLES Unavailable [phone] Aleksey, [id number] MD Nam CHARLES Unavailable + [phone] [address], [id number] MD Nam CHARLES Unavailable [phone] Stiven Ellison Unavailable Unavailable Cleve Green MD Unavailable Unavailable Cleve Green MD Unavailable Unavailable BROWN, AMERICA MIGNON EDGER TECHNICIAN Unavailable Unavailable BROWN, AMERICA MIGNON EDGER TECHNICIAN Unavailable Unavailable BROWN, AMERICA MIGNON EDGER TECHNICIAN Unavailable Unavailable BROWN, AMERICA MIGNON EDGER TECHNICIAN Unavailable Unavailable BROWN, AMERICA MIGNON EDGER TECHNICIAN Unavailable Unavailable BROWN, AMERICA MIGNON EDGER TECHNICIAN Unavailable Unavailable BROWN, AMERICA MIGNON EDGER TECHNICIAN Unavailable Unavailable BROWN, AMERICA MIGNON EDGER TECHNICIAN Unavailable Unavailable BROWN, AMERICA MIGNON EDGER TECHNICIAN Unavailable Unavailable BROWN, AMERICA MIGNON EDGER TECHNICIAN Unavailable Unavailable BROWN, AMERICA MIGNON EDGER TECHNICIAN Unavailable Unavailable BROWN, AMERICA MIGNON EDGER TECHNICIAN Unavailable Unavailable BROWN, AMERICA MIGNON EDGER TECHNICIAN Unavailable Unavailable BROWN, AMERICA MIGNON EDGER TECHNICIAN Unavailable Unavailable BROWN, AMERICA MIGNON EDGER TECHNICIAN Unavailable Unavailable BROWN, AMERICA MIGNON EDGER TECHNICIAN Unavailable Unavailable BROWN, AMERICA MIGNON EDGER TECHNICIAN Unavailable Unavailable BROWN, AMERICA MIGNON EDGER TECHNICIAN Unavailable Unavailable BROWN, AMERICA MIGNON EDGER TECHNICIAN Unavailable Unavailable BROWN, AMERICA MIGNON EDGER TECHNICIAN Unavailable Unavailable BROWN, AMERICA MIGNON EDGER TECHNICIAN Unavailable Unavailable BROWN, AMERICA MIGNON EDGER TECHNICIAN Unavailable Unavailable BROWN, AMERICA MIGNON EDGER TECHNICIAN Unavailable Unavailable BROWN, AMERICA MIGNON EDGER TECHNICIAN Unavailable Unavailable BROWN, AMERICA MIGNON EDGER TECHNICIAN Unavailable Unavailable BROWN, AMERICA MIGNON EDGER TECHNICIAN Unavailable Unavailable BROWN, AMERICA MIGNON EDGER TECHNICIAN Unavailable Unavailable BROWN, AMERICA MIGNON EDGER TECHNICIAN Unavailable Unavailable BROWN, AMERICA MIGNON EDGER TECHNICIAN Unavailable Unavailable BROWN, AMERICA MIGNON EDGER TECHNICIAN Unavailable Unavailable BROWN, AMERICA MIGNON EDGER TECHNICIAN Unavailable Unavailable BROWN, AMERICA MIGNON EDGER TECHNICIAN Unavailable Unavailable BROWN, AMERICA MIGNON EDGER TECHNICIAN Unavailable Unavailable BROWN, AMERICA MIGNON EDGER TECHNICIAN Unavailable Unavailable BROWN, AMERICA MIGNON EDGER TECHNICIAN Unavailable Unavailable BROWN, AMERICA MIGNON EDGER TECHNICIAN Unavailable Unavailable BROWN, AMERICA MIGNON EDGER TECHNICIAN Unavailable Unavailable BROWN, AMERICA MIGNON EDGER TECHNICIAN Unavailable Unavailable BROWN, AMERICA MIGNON EDGER TECHNICIAN Unavailable Unavailable BROWN, AMERICA MIGNON EDGER TECHNICIAN Unavailable Unavailable Kocan, J Fransisca EMPLOYMENT REPRESENTATIVE Unavailable Unavailable Kocan, J Fransisca EMPLOYMENT REPRESENTATIVE Unavailable Unavailable Kocan, J Fransisca EMPLOYMENT REPRESENTATIVE Unavailable Unavailable Kocan, J Fransisca EMPLOYMENT REPRESENTATIVE Unavailable Unavailable Kocan, J Fransisca EMPLOYMENT REPRESENTATIVE Unavailable Unavailable Kocan, J Fransisca EMPLOYMENT REPRESENTATIVE Unavailable Unavailable Kocan, J Fransisca EMPLOYMENT REPRESENTATIVE Unavailable Unavailable Kocan, J Fransisca EMPLOYMENT REPRESENTATIVE Unavailable Unavailable Kocan, J Fransisca EMPLOYMENT REPRESENTATIVE Unavailable Unavailable Kocan, J Fransisca EMPLOYMENT REPRESENTATIVE Unavailable Unavailable Kocan, J Fransisca EMPLOYMENT REPRESENTATIVE Unavailable Unavailable Kocan, J Fransisca EMPLOYMENT REPRESENTATIVE Unavailable Unavailable Kocan, J Fransisca EMPLOYMENT REPRESENTATIVE Unavailable Unavailable Nam Ryder MD Unavailable Unavailable [...] Unavailable Ellison, E Ciera PA PA Unavailable [phone] Ellison, E Ciera PA PA Unavailable [phone] Ellison, E Ciera PA PA Unavailable [phone] Ellison, E Ciera PA PA Unavailable [phone] Ellison, E Ciera PA PA Unavailable [phone] ESTRADA COLINDRES MD Unavailable Unavailable ESTRADA COLINDRES [...] Unavailable Michelle, F Vladimir PA Unavailable Unavailable [place], F Vladimir PA Unavailable Unavailable Michelle, F Vladimir PA Unavailable Unavailable Michelle, F Vladimir PA Unavailable Unavailable Michelle, F Vladimir PA Unavailable Unavailable [place], F Vladimir PA Unavailable Unavailable [place], F Vladimir PA Unavailable Unavailable [place], F Vladimir PA Unavailable Unavailable Michelle, F Vladimir PA Unavailable Unavailable [place], F Vladimir PA Unavailable Unavailable ZEGIL, D ANN TOOL REPAIR TECHNICIAN Unavailable Unavailable ZEGIL, D ANN TOOL REPAIR TECHNICIAN Unavailable Unavailable ZEGIL, D ANN TOOL REPAIR TECHNICIAN Unavailable Unavailable DELILAH (HERNANDO), Renata GARLAND MD Unavailable Unavailab le DELILAH (HERNANDO), Renata GARLAND MD Unavailable Unavailab le DELILAH (HERNANDO), Renata GARLAND MD Unavailable Unavailab le DELILAH (HERNANDO), Renata GARLAND MD Unavailable Unavailab le DELILAH (HERNANDO), Renata GARLAND MD Unavailable Unavailab le DELILAH (HERANNDO), Renata GARLAND MD Unavailable Unavailab le DELILAH [...] Khoa Hill MD Unavailable Unavailable Chater, Khoa Hlil MD Unavailable Unavailable Chater, Khoa Hill MD [...] Unavailable Unavailable Ananth, J Radha PA Unavailable [phone] Ananth, J Radha PA Unavailable [phone] Ananth, J Radha PA Unavailable [phone] Ananth, J Radha PA Unavailable [phone] Provider, Generic Unavailable Unavailable UNKNOWN Unavailable Unavailable [...] is protected by Article 27-F of the [facility] Public Health law. If you continue you may have access to information: Regarding HIV / AIDS; Provided by facilities licensed or operated by the [facility] Office of Mental Health; or Provided by the [facility] Office for People With Developmental Disabilities. If such information is present, then the following [facility] mandated warning applies: This information has been [...] law may result in a fine or usp sentence or both. A general authorization for the release of medical or other information is NOT sufficient authorization for further disc losure. Allergies and Adverse Reactions Type Description Substance Reaction Status Data Source(s ) Drug allergy Drug allergy ustekinumab (From Stelara) Other S [facility] Drug allergy Drug allergy silver (From Tegaderm AG Mesh) Itching I [facility] Drug allergy Drug allergy sulfasalazine Other S [facility] Drug allergy Drug allergy Sulfa (Sulfonamide Antibiotics) Other S [facility] Drug allergy Drug allergy metoclopramide HCl (From Reglan) Hallucinat ions S [facility] Drug allergy Drug allergy ustekinumab (From Stelara) Macular Edema [facility] Drug allergy Drug allergy eculizumab (From Soliris) Anaphy lactic Shock Unknown Reaction [facility] Drug allergy Drug allergy adhesive tape skin irritation/redness M [facility] Drug allergy Drug allergy sulfasalazine (From Azulfidine) Liver failure S Toxic Hepatitis S [facility] Drug allergy Drug allergy Sulfa (Sulfonamide Antibiotics) Liver failure S Toxic Hepatitis S [facility] Drug allergy Drug allergy duloxetine HCl (From Cymbalta) serotonin syndrome S [facility] Drug allergy Drug allergy metoclopramide HCl (From Reglan) Hallucinat ions [facility] Family History Family Member Name Family Member Gender Family Member Status Date o f Status Description Data Source(s) Unknown Unknown Problem MEDENT (Dr Estrada Colindres) Encounters Encounter Providers Location Date Indications Data Source(s ) Emergency Attender: Erick DAHLttender: Purvi arevalo MD [facility]-ED 08/23/2021 10:55:00 AM EST - 08/23/2021 02:46:00 PM EST SWELLING OF TONGUE, DIFFICULTY SWALLOING [facility] SWELLING OF TONGUE, DIFFICULTY SWALLOING Patient discharged. Outpatient Attender: UNKNOWN [facility]-LABEJN 07/31/2021 03:12:00 PM E [facility] Outpatient Attender: Valerie Tarango MDAttender: Valerie Tarango MD E D-LABPNP 07/31/2021 01:22:00 PM EDT - 07/31/2021 01:23:00 PM EDT R7303 [id number] [facility] R7303 E7800 Patient discharged. Outpatient Attender: Valerie Tarango MD [facility]-CPSLAPCP 2020 02:21:00 PM EDT - 07/29/2021 02:22:00 PM EDT [facility] Patient discharged. Outpatient Attender: Valerie Tarango MDAttender: Valerie Tarango MD E D-LAB 07/16/2021 03:26:00 PM EDT - 07/16/2021 03:27:00 PM EDT D72.829 [facility] D72.829 Patient discharged. OFFICE OUTPATIENT NEW 30 MINUTES Attender: Andreas Morfin MD Physic al Therapy 07/16/2021 09:00:00 AM EDT [facility] ([facility]) Emergency Attender: WIN CEDILLO ED-ED 07/10 05:53:00 PM EDT - 07/10/2021 07:14:00 PM EDT JAW AND EAR PAIN, CRACKED TOOTH [facility] JAW AND EAR PAIN, CRACKED TOOTH Patient discharged. Outpatient Attender: UNKNOWN [facility]-LABEJN 07/03/2021 08:12:00 PM E DT [facility] Outpatient Attender: Nam Ryder MDAttender: [id number] Nam Ryder MD ED-LABPNP 07/03/2021 04:07:00 PM EDT - 07/03/2021 04:08:00 PM EDT L40.50 [facility] L40.50 Patient discharged. Outpatient Attender: BAYLEE HENAO MD [facility]-CPSCNOBG 06/12 12:53:00 PM EDT - 07/02/2021 12:54:[address] [facility] Patient discharged. Outpatient Referrer: Nelly Aguilar TOOL REPAIR TECHNICIAN 07/01/2021 10:16:14 AM EDT [facility] Outpatient Attender: [id number] Nam Ryder MD [facility]-CPSC ARHE 06/23/2021 01:47:00 PM EDT - 06/23/2021 01:48:00 PM EDT [facility] Patient discharged. Emergency Attender: Ann Cheng DOAttender: Ann guerrero DO CPSCAORT-ED 06/21/2021 09:57:00 PM EDT - 06/22/2021 01:52:00 AM EDT POST SURGICAL PAIN [facility] POST SURGICAL PAIN Patient discharged. Outpatient Attender: BAYLEE HENAO MD CPSJUDY-SDCSDC 2020 06:38:00 AM EDT - 06/14/2021 01:00:00 PM EDT HYSTERECTOMY; CERVICAL POLYPS [facility] HYSTERECTOMY; CERVICAL POLYPS Patient discharged. Outpatient Attender: BAYLEE SHRESTHA-SDCSDC 06/13/2021 1 1:49:00 AM EDT DNC [facility] DN Outpatient Attender: BAYLEE HENAO MD ED-LABPNP 2020 09:00:00 AM EDT - 06/11/2021 09:01:00 AM EDT Z01.812 [facility] Z01.812 Patient discharged. Outpatient Attender: BAYLEE HENAO MD CPSJUDY-CPSCNOBG 05/12 01:23:00 PM EDT - 06/06/2021 [facility] Attender: RAD CPSCAMAITE-LABEJN 06/05/2021 02:37:00 PM E [facility] Outpatient Attender: Valerie Tarango MDAttender: Valerie Saleem D-LABPNP 06/05/2021 12:44:00 PM EDT - 06/05/2021 12:45:00 PM EDT L4050 [facility] L4050 Patient discharged. Outpatient Attender: Jessica Davila MD CPSCAORT-IMACN 021 12:29:00 PM EDT - 06/04/2021 12:30:00 PM EDT R20.2 [facility] R20.2 Patient discharged. Outpatient Attender: Jesus Figueroa ED-LABPNP 01:27:00 PM EDT - 05/27/2021 01:28:00 PM EDT Z20.828 [facility] Z20.828 Patient discharged. Outpatient Attender: Jessica Davila MD CPSCAMAITE-CPSCANEU 05/14 12:54:00 PM EDT - 05/14/2021 12:55:00 PM EDT [facility] Patient discharged. Outpatient Attender: UNKNOWN CPSCAORT-LABEJN 05/06/2021 02:45:00 PM E [facility] Outpatient Attender: Nam Ryder MDAttender: [id number] Nam Ryder MD ED-LABPNP 05/06/2021 01:40:00 PM EDT - 05/06/2021 01:41:00 PM EDT L40.50 [facility] L40.50 Patient discharged. Outpatient Attender: UNKNOWN CPSCAORT-LABEJN 05/05/2021 09:42:00 AM E [facility] Outpatient Attender: LA Groves FNPAttender: MIGNON GROVES NP ED-IMAG 05/05/2021 07:38:00 AM EDT - 05/05/2021 07:39:00 AM EDT N950 [id number] [facility] N950 [id number] Patient discharged. Outpatient Attender: Valerie Tarango MDAttender: Valerie Tarango MD C PSCAORT-CPSLAPCP 04/22/2021 12:29:00 PM EDT - 04/22/2021 12:30:00 PM EDT K92.1,R13.10 [facility] K92.1,R13.10 Patient discharged. Preadmit Attender: [phone] Nam Ryder MD CPSCAORT-INFU SPD 04/18/2021 10:00:00 [facility]-LABEJN 04/17/2021 01:57:00 PM EDT [facility] Outpatient Attender: LA Groves FNPAttender : MIGNON GROVES NP CPSCAORT-LABEJN 04/15/2021 07:29:00 PM EDT Z12.4 [facility] Z12.4 Outpatient Attender: LA Groves FNPAttender: MIGNON GROVES NP ED-LABPNP 04/15/2021 03:11:00 PM EDT - 04/15/2021 03:12:00 PM EDT Z124 [facility] Z124 Patient discharged. Outpatient Attender: MIGNON GROVES NP [facility]-CPSGNOBG 03/2021 01:24:00 PM EDT - 04/15/2021 01:25:[address] [facility] Patient discharged. Emergency Attender: EROS OAKLEY MD CPSCAORT-ED 2020 01:23:00 PM EDT - 04/11/2021 03:59:00 PM EDT ABDOMINAL PAIN [facility] ABDOMINAL PAIN Patient discharged. Outpatient Attender: DAISY CEDILLO [facility]-CPSLAUCC 11/2020 12:13:00 PM EDT - 04/11/2021 12:14:[facility]. Outpatient Attender: UNKNOWN [facility]-LABEJN 03/28/2021 03:07:00 PM E DT [facility] Outpatient Attender: Nam Ryder MDAttender: [phone] Nam Ryder MD ED-LABPNP 03/28/2021 12:12:00 PM EDT - 03/28/2021 12:13:00 PM EDT L4050 [facility] L4050 Patient discharged. Outpatient [facility]-LABEJN 03/25/2021 09:42:00 AM EDT [facility] Outpatient Attender: Valerie Tarango MDAttender: Valerie Tarango MD E D-LAB 03/25/2021 08:26:00 AM EDT - 03/25/2021 08:27:00 AM EDT R300 [facility] R300 Patient discharged. Preadmit Attender: [phone] Nam Ryder MD [facility]INFU SPD 03/17/2021 12:00:00 PM EDT REMICADE [facility] REMICADE Emergency Attender: Galina Dinh PAAttender: Roosevelt Ritchie DO CPSCAORT-ED 03/07/2021 11:01:00 AM EDT - 03/07/2021 03:25:00 PM EDT PALPITATIONS, PAIN WITH URINATION [facility] PALPITATIONS, PAIN WITH URINATION Patient discharged. Outpatient CPSCAORT-LABEJN 03/03/2021 03:16:00 PM EDT [facility] Outpatient Attender: Valerie Tarango MDAttender: Valerie Tarango MD E D-LAB 03/03/2021 09:57:00 AM EDT - 03/03/2021 09:58:00 AM EDT R300 [facility] R300 Patient discharged. Outpatient Attender: Valerie Tarango MD [facility]-CPSLAPCP 2020 10:14:00 AM EDT - 02/21/2021 10:15:00 AM EDT [facility] Patient discharged. Outpatient Attender: Win Ray MD [facility]-CPSCAENT 10:59:00 AM EDT - 02/11/2021 11:00:[address] [facility] Patient discharged. Preadmit Attender: Ciera [facility]EDILLO [facility] 02/08/2021 1 2:00:00 AM EDT [facility] Outpatient Attender: UNKNOWN CPSCAORT-LABEJN 02/07/2021 03:08:00 PM E DT [facility] Outpatient Attender: Nelly Aguilar FNPAttender: Nimisha fonseca ED-LAB 02/07/2021 10:56:00 AM EDT - 02/07/2021 10:57:00 AM EDT K7581 R1011 R1012 K219 [facility] K7581 R1011 R1012 K219 Patient discharged. Outpatient Attender: Nam Ryder MDAttender: [phone] Nam Ryder MD CPSCAORT-INFUSPD 02/06/2021 10:06:00 AM EDT - 02/06/2021 01:12:00 PM ED T REMICADE [facility] REMICADE Patient discharged. R Attender: Ciera CEDILLO ED-PRSGHPT 10:30:00 AM EDT - 02/07/2021 12:01:00 AM EDT [facility] Patient discharged. Outpatient Attender: DADA MAZARIEGOS MD ([place]) -[facility] 01/24/2021 08:45:00 AM EDT - 01/24/2021 08:46:00 AM EDT [id number] [facility] [id number] Patient discharged. Emergency Attender: Vladimir CEDILLO ED-ED 02:55:00 PM EDT - 01/21/2021 05:19:00 PM EDT NUMBNESS AND TINGLING [facility] NUMBNESS AND TINGLING Patient discharged. Outpatient Attender: RAD GUARDADOLABEJN 01/20/2021 02:51:00 PM E [facility] Outpatient Attender: Valerie Tarango MDAttender: Valerie Tarango MD [facility] 01/20/2021 10:35:00 AM EDT - 01/20/2021 10:36:00 AM EDT R6881 R7303 E162 R790 E559 [facility] R6881 R7303 E162 R790 E559 Patient discharged. R Attender: NATHANAEL RESENDIZ MD ED-TRMTR 2020 10:31:00 AM EDT - 02/07/2021 12:01:00 AM EDT ANEMIA [facility] ANEMIA Patient discharged. Outpatient Attender: ESTRADA COLINDRES MD CPSIDMAITE-IMAPD 01/15/20 12:44:00 PM EDT - 01/14/2021 12:45:00 PM EDT FLUSHED PORT [facility] FLUSHED PORT Patient discharged. Outpatient Attender: RAD GUARDADOLABEJN 01/13/2021 03:06:00 PM E [facility] Outpatient Attender: ESTRADA COLINDRES MD CPSCAORT-IMAPD 01/14/20 02:09:00 PM EDT - 01/13/2021 02:10:00 PM EDT T82.594A,G70.0 [facility] T82.594A,G70.0 Patient discharged. Outpatient Attender: DADA MAZARIEGOS MD ([facility]) [facility] 01/13/2021 10:57:00 AM EDT - 01/13/2021 10:58:00 AM EDT 553.3 [facility] 553.3 Patient discharged. Emergency Attender: Carisa Adkins PAAttender: Roosevelt Ramos CPSCAORT-ED 01/10/2021 10:26:00 AM EDT - 01/10/2021 03:30:00 PM EDT ABDOMINAL PAIN [facility] ABDOMINAL PAIN Patient discharged. Outpatient Attender: [phone] Nam Ryder MDAttend er: Nam Ryder MD CPSCAORT-INFUSPD 01/08/2021 10:10:00 AM EDT - 01/08/2021 01:21:00 PM ED T REMICADE [facility] REMICADE Patient discharged. Outpatient Attender: Valerie Tarango MD CPSCAORT-CPSLAPCP 2020 07:38:00 AM EDT - 01/08/2021 07:39:00 AM EDT [facility] Patient discharged. Outpatient Attender: ESTRADA COLINDRES MD CPSCAORT-SDCSDC 01/08/20 10:53:00 AM EDT - 01/07/2021 03:35:00 PM EDT [facility] Patient discharged. Outpatient Attender: Win Ray MD CPSCAORT-IMAPD 12/10 01:54:00 PM EDT - 01/02/2021 01:55:00 PM EDT H69.83 [facility] H69.83 Patient discharged. Outpatient Attender: [phone] Nam Ryder MD CPSCAORT-CPSC ARHE 12/24/2020 10:03:00 AM EDT - 12/24/2020 10:04:00 AM EDT [facility] Patient discharged. Outpatient Attender: Radha CEDILLO CPSCAORT-CPSLAUCC 11:05:00 AM EDT - 12/22/2020 11:06:[address] [facility] R05 Patient discharged. Outpatient Attender: RAD CPSCAORT-LABEJN 12/20/2020 07:01:[address] [facility] Outpatient Attender: Ciera Ellison PAAttender: Ciera CEDILLO ED-LAB 12/20/2020 02:23:00 PM EST - 12/20/2020 02:24:00 PM EST G2581 [facility] G2581 Patient discharged. Outpatient Attender: Ciera CEDILLO CPSCAORT-CPSCANEU 0 12/17/2020 08:23:00 AM EST - 12/17/2020 08:24:[address] [facility] Patient discharged. Outpatient Attender: Nam Ryder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 12:00:00 AM [facility] U0003 SARS-CoV-2 detection by nucleic acid 04/22/2021 12:00: 00 AM [facility] COLLECTION VENOUS BLOOD VENIPUNCTURE ROUTINE VENIPUNCTURE 12:00:00 AM [facility] IRON BINDING CAPACITY IRON BINDING TEST 04/22/2021 12:00:00 AM [facility] IRON ASSAY OF IRON 04/22/2021 12:00:00 AM [facility] Screening cytopathology, cervical or vag inal (any reporting system), collected in preservative fluid, automated thin layer preparation, screening by advocacy director under physician supervision 04/15/2021 12:00:00 AM [facility] ECG ROUTINE ECG W/LEAST 12 LDS TRCG ONLY W/O I&R ELECTROCARD IOGRAM TRACING 04/11/2021 12:00:00 AM [facility] URNLS DIP STICK/TABLET RGNT NON-AUTO W/O MICRSCP URINALYSIS NONAUTO W/O SCOPE 04/11/2021 12:00:00 AM [facility] ULTRASOUND ABDOMINAL REAL TIME W/IMAGE LIMITED ECHO EXAM OF ABDOMEN 04/11/2021 12:00:00 AM [facility] URNLS DIP STICK/TABLET RGNT AUTO W/O MICROSCOPY URINALYSIS A UTO W/O SCOPE 04/11/2021 12:00:00 AM [facility] TROPONIN QUANTITATIVE ASSAY OF TROPONIN QUANT 04/11/2021 12:00:00 A M [facility] C-REACTIVE PROTEIN C-REACTIVE PROTEIN 04/11/2021 12:00:00 AM [facility] LIPASE ASSAY OF LIPASE 04/11/2021 12:00:00 AM [facility] Injection, pantoprazole sodium, per vial 04/11/2021 12 :00:00 AM [facility] IV INFUSION HYDRATION EACH ADDITIONAL HOUR 04/11/2021 12:00:00 AM [facility] URNLS DIP STICK/TABLET REAGENT AUTO MICROSCOPY URINALYSIS AU TO W/SCOPE 03/25/2021 12:00:00 AM [facility] 0003M 02/07/2021 12:00:00 AM [facility] COLLECTION VENOUS BLOOD VENIPUNCTURE ROUTINE VENIPUNCTURE 12:00:00 AM [facility] HEPATIC FUNCTION PANEL HEPATIC FUNCTION PANEL 02/07/2021 12:00:00 A M [facility] THERAPEUTIC PX 1/> AREAS EACH 15 MIN EXERCISES THERAPEUTIC E XERCISES 01/23/2021 12:00:00 AM [facility] [address] PT EVAL LOW COMPLEX 20 MIN 01/21/2021 12:00:00 AM [facility] FLUOROSCOPY SPX <1 HOUR PHYSICIAN TIME FLUOROSCOPY <1 HR PHY S/QHP 01/13/2021 12:00:00 AM [facility] Injection, sodium ferric gluconate complex in sucrose inject ion, 12.5 mg 01/09/2021 12:00:00 AM [facility] RPLCMT COMPL RUFINO CTR VAD W/SUBQ PORT 01/07/2021 12:00: 00 AM [facility] [address]956 X-RAY EXAM CHEST 1 VIEW 01/07/2021 12:00:00 AM [facility] [address]03 SARS-COV-2 COVID-19 AMP PRB 01/07/2021 12:00:00 AM [facility] Insertion of Totally Implantable Vascula r Access Device into Chest Subcutaneous Tissue and Fascia, Open Approach INSERTION OF TIVAD INTO CHEST SUBCU/FASC IA, OPEN APPROACH 01/07/2021 12:00:00 AM [facility] Removal of Totally Implantable Vascular Access Device from Trunk Subcutaneous Tissue and Fascia, Open Approach REMOVAL OF TIVAD FROM TRUNK SUBCU/FASCIA , OPEN APPROACH 01/07/2021 12:00:00 AM [facility] MOTION FLUOR EVAL SWLNG FUNCJ C/V REC MOTION FLUOROSCOPY/SWA LLOW 01/02/2021 12:00:00 AM [facility] SWALLOWING FUNCJ W/CINERADIOGRAPY/VIDRADIOG X-RAY XM SWLNG F UNCJ C+ 01/02/2021 12:00:00 AM [facility] [address]34 X-RAY EXAM CHEST 2 VIEWS 12/22/2020 12:00:00 AM [facility] NASAL ENDOSCOPY DIAGNOSTIC UNI/BI SPX NASAL ENDOSCOPY DX 12:00:00 AM [facility] VITAMIN K ASSAY OF VITAMIN K 10/18/2020 12:00:00 AM [facility] TOCOPHEROL ALPHA VITAMIN E ASSAY OF VITAMIN E 10/18/2020 12:00:00 A M [facility] THYROID STIMULATING HORMONE TSH ASSAY THYROID STIM HORMONE 0 10/18/2020 12:00:00 AM [facility] VITAMIN A ASSAY OF VITAMIN A 10/18/2020 12:00:00 AM [facility] 25 HYDROXY INCLUDES FRACTIONS IF PERFORMED VITAMIN D 25 HYDR OXY 10/18/2020 12:00:00 AM [facility] CYANOCOBALAMIN VITAMIN B-12 VITAMIN B-12 10/18/2020 12:00:00 AM [facility] SEDIMENTATION RATE RBC NON-AUTOMATED RBC SED RATE NONAUTOMAT ED 10/18/2020 12:00:00 AM [facility] HEMOGLOBIN GLYCOSYLATED A1C GLYCOSYLATED HEMOGLOBIN TEST 05/2021 12:00:00 AM [facility] Infusion, normal saline solution , 250 cc 10/18/2020 1 2:00:00 AM [facility] Injection, alteplase recombinant, 1 mg 10/18/2020 12:0 0:00 AM [facility] Injection infliximab, 10 mg 10/18/2020 12:00:00 AM [facility] CHEMOTHERAPY ADMN IV INFUSION TQ EA HR CHEMO IV INFUSION ADD L HR 10/18/2020 12:00:00 AM [facility] CHEMOTX ADMN IV NFS TQ UP 1 HR SBST/DRUG CHEMO IV INFU YESI 1 HR 10/18/2020 12:00:00 AM [facility] DECLOT BY THROMBOLYTIC AGENT IMPLANT DEVICE/CATH DECLOT VASC ULAR DEVICE 10/18/2020 12:00:00 AM [facility] Introduction of Monoclonal Antibody into Central Vein, Percutaneous Approach INTRODUCE MONOCLONAL ANTIBODY IN CENTRAL VEIN, PERC 10/18/2020 12:00:00 [address] [facility] CT THORAX W/CONTRAST MATERIAL CT THORAX W/DYE 10/16/2020 12:00:00 A M [facility] THROMBOPLASTIN TIME PARTIAL PLASMA/WHOLE BLOOD THROMBOPLASTI N TIME PARTIAL 10/16/2020 12:00:00 AM [facility] PROTHROMBIN TIME PROTHROMBIN TIME 10/16/2020 12:00:00 AM [facility] MAGNESIUM ASSAY OF MAGNESIUM 10/16/2020 12:00:00 AM [facility] Colonoscopy 10/11/2020 12:00:00 AM [facility] Renata ELLISON (Dr Estrada Colindres) ARTHROCENTESIS ASPIR&/INJECTION INTERM JT/BURSA DRAIN/INJ CAMI INT/BURSA W/O US 10/01/2020 12:00:00 AM [facility] Injection, triamcinolone acetonide, not otherwise specified , 10 mg 10/01/2020 12:00:00 AM [facility] Ondansetron 1 mg, oral, fda approved pre scription anti-emetic, for use as a complete therapeutic substitute for an iv anti-emetic at the time of chemotherapy treatment, not to exceed a 48 hour dosage regimen 09/12/2020 12:00:00 AM [facility] FLUOROSCOPIC GUIDANCE NEEDLE PLACEMENT NEEDLE LOCALIZATION B Y XRAY 08/22/2020 12:00:00 AM [facility] ARTHROCENTESIS ASPIR&/INJECTION MAJOR JT/BURSA DRAIN/INJ SETH NT/BURSA W/O US 08/22/2020 12:00:00 AM [facility] Injection, ropivacaine hydrochloride, 1 mg 08/22/2020 12:00:00 AM [facility] Injection, methylprednisolone acetate, 80 mg 0 12:00:00 AM [facility] RADEX SPINE LUMBOSACRAL 2/3 VIEWS X-RAY EXAM L-S SPINE 2/3 V WS 07/29/2020 12:00:00 AM EDT [facility] MRI ANY JT LOWER EXTREM W/O CONTRAST MATRL MRI JNT OF LWR EX NAMITA W/O DYE 07/16/2020 12:00:00 AM [facility] Results ID Date Data Source [id number] 08/23/2021 10:55:00 AM EST [facility] Name: ANGELIA ARTHUR [facility] Rec #: [id number] : 1965 Age/Sex: 55F Date of Service: 08/23/21 PHYSICIAN CHART Physician Documentation [facility] Name: Angelia Arthur Age: 55 yrs [...] causing it to be painful to swallow.. FINISH OPENER: 11:04 LMP N/A - Post- menopause kendrick [...] to communication noted, The patient speaks fluent Kazakh. ROS: 11:41 ENT: Positive for dental pain, [...] Order name: Cbc With Auto Differe ntial [facility] 08/23 11:21 Order name: COMMET [facility] 08/23 11:21 Order name: C-Reactive Protein,Wide Range [facility] 08/23 11:21 Order name: Lactic Acid [facility] 08/23 11:21 Order name: CT Neck Soft Tissue W Contrast [facility] 08/23 12:34 Order name: Troponin I [facility] 08/23 12:34 Order name: Emergency Room [...] rce(s) Supporting Document(s) ID Date Data Source [id number] 08/23/2021 10:55:00 AM [facility] Name: ANGELIA ARTHUR [facility] Rec #: [id number] : 1965 Age/Sex: 55F Date of Service: 08/23/21 DISPOSITION SUMMARY Discharge Summary [facility] Name:Angelia Arthur Emergency Department Age:55 yrs [...] rce(s) Supporting Document(s) ID Date Data Source [id number] 08/23/2021 10:55:00 AM EST [facility] Name: ANGELIA ARTHUR [facility] Rec #: [id number] : 1965 Age/Sex: 55F Date of Service: 08/23/21 NURSE CHART Nurse's Notes [facility] Name: Angelia Arthur Age: 55 yrs Sex: Female : 1965 Arrival Date: 08/23/2021 Time: 10:55 Bed 12 Private MD: Valerie Tarango L Diagnosis: Dysphagia, unspecified Presentation: 08/23 11:05 Transition of care: patient was not received from another [facility] setting of care. Presenting complaint: Patient states - Started with tongue swelling and dysphagia on . Painful to swallow. Have you travelled in the last 30 days? No. Have you had contact with an individual with a confirmed diagnosis of Ebola or COVID-19? No. 11:05 Method Of Arrival: Walk-In [facility] 11:05 Acuity: Urgent - 3 [facility] Triage Assessment: 11:06 SEPSIS SCREEN: A Confirmed [...] aching, The pain is described as continuous. FINISH OPENER: 11:04 LMP N/A - Post- menopause [facility] Historical: - Allergies: Azulfidine; Reglan; Soliris; Stelara; [...] to communication noted, The patient speaks fluent Kazakh. Screenin:11 AUDIT 1. How often do you [...] Mass Index 44.29 (113.40 kg, 160.02 cm) [facility] ED Course: 11:00 Patient arrived in ED. cc4 11:05 Valerie Tarango MD is Private Physician. kendrick 11:06 Triage completed. kendrick 11:07 Arm band placed on right wrist. Patient placed in exam room [facility] Patient has correct armband on for positive [...] An EKG was obtained and reviewed by uPrvi Ortega MD. jv2 13:06 Cardiology EKG Interpretation - Choose Reason for Test Sent.jv2 13:11 Patient has correct armband on for positive identification, jv2 Placed in gown, Bed in low position, Call light in reach, Side rails up X 1. color television console monitor on. Pulse on is on. NIBP [...] 1100ml. jv2 Outcome: 14:33 Discharge ordered by [facility] 14:45 Patient verbalized understanding of disposition [...] rce(s) Supporting Document(s) ID Date Data Source [id number] 08/25/2021 09:20:00 AM [facility] Name: ANGELIA ARTHUR : 1965 Age/Sex: 55F Ordering Provider: NGUYEN Stahl Med Rec #: [id number] Reg Status[facility] Room #: Date of Service: 08/23/21 Report Number: [id number] cc: Valerie Tarango MD; NGUYEN Stahl Send Report To: Reason for exam: Chest Pain SINUS RHYTHM LOWER QRS VOLTAGE IN PRECORDIAL LEADS COMPARED WITH 04/11/21, POSSIBLY DUE TO LEAD PLACEMENT Physician Blow Torch Operator: Hamilton David M.D. ECG HEART RATE: 76 /min ECG RR INTERVAL: 782 ms ECG P DURATION: 122 ms ECG QRS DURATION: 84 ms ECG ME INTERVAL: 168 ms ECG QT INTERVAL: 361 ms ECG QTC INTERVAL: 389 ms Q-T dispersion: ms ECG P AXIS: 52 deg ECG QRS AXIS: 39 deg ECG T AXIS: 39 deg REPORT SIGNATURE ON FILE 08/25/21919 Reported By: Hamilton David II, MD <<Signature on File>> Exam Date/Time: 08/23/21 1306 Order #: [id number] Dictation Date/Time: 08/25/21919 Transcribed Date/Time: 08/25/21919 Associate Creative Director: VALDO Name Value Range Interpretation Code Description Data Ekta rce(s) Supporting Document(s) ID Date Data Source [id number] 08/23/2021 01:29:00 PM EST [facility] Name Value Range Interpretation Code Description Data Ekta rce(s) Supporting Document(s) Troponin I 0.000-0.045 Normal (applies to non-numeric resu lts) [facility] ID Date Data Source [id number] 08/23/2021 12:47:00 PM EST [facility] Name Value Range Interpretation Code Description Data Ekta rce(s) Supporting Document(s) Sodium 140 mmol/L 137-145 Normal (applies to non-numeric resul ts) [facility] Potassium 3.5-5.1 Normal (applies to non-numeric resul ts) [facility] Chloride 106 mmol/L 98-112 Normal (applies to non-numeric resul ts) [facility] Carbon Dioxide CO2 22.0-33.0 Normal (applies to non-numer ic results) [facility] Anion Gap 4.0-11.0 Normal (applies to non-numeric resul ts) [facility] BUN 12 mg/dL 7-17 Normal (applies to non-numeric resul ts) [facility] Creatinine 0.70-1.20 Below low normal [facility] GFR >60 Normal (applies to non-numeric results) [facility] Result based on MDRD formula. Glucose Level 96 mg/dL 74-99 Normal (applies to non-numeric re sults) [facility] The reference range is only applicable w hen fasting. Calcium-Uncorrected 8.4-10.2 Normal (applies to non-nume yahir results) [facility] Corrected Calcium 8.4-10.2 Normal (applies to non-numeri c results) [facility] Bilirubin,Total 0.2-1.3 Normal (applies to non-numeric results) [facility] SGOT(AST) 22 U/L 14-36 Normal (applies to non-numeric resul ts) [facility] SGPT(ALT) 35 U/L 9-52 Normal (applies to non-numeric resul ts) [facility] Alkaline Phosphatase 130 U/L 38-126 Above high normal [facility] can increase Alkaline Phosp le vels up to 2 times the normal adult value. Normal values for children and adolescents are 2 to 3 times the normal adult value. Total Protein 6.3-8.2 Normal (applies to non-numeric re sults) [facility] Albumin 3.5-5.0 Normal (applies to non-numeric resul ts) [facility] ID Date Data Source [id number] 08/23/2021 12:47:00 PM EST [facility] Name Value Range Interpretation Code Description Data Ekta rce(s) Supporting Document(s) C-Reactive Protein,Wide Range <3.00 Above high normal [facility] ID Date Data Source [id number] 08/23/2021 12:30:00 PM EST [facility] 3 hour post Lactic if elevated? Y Name Value Range Interpretation Code Description Data Ekta rce(s) Supporting Document(s) Lactic Acid 0.4-2.0 Normal (applies to non-numeric resu lts) [facility] ID Date Data Source [id number] 08/23/2021 12:29:00 PM EST [facility] Name Value Range Interpretation Code Description Data Ekta rce(s) Supporting Document(s) White Blood Count 4.8-10.8 Above high normal [facility] Red Blood Count 3.68-5.22 Normal (applies to non-numeric results) [facility] Hemoglobin 11.2-15.7 Normal (applies to non-numeric resul ts) [facility] Hematocrit 34.1-44.9 Normal (applies to non-numeric resul ts) [facility] Mean Corpuscular Volume 81-99 Normal (applies to non- numeric results) [facility] Mean Corpuscular Hemoglobin 27.0-33.0 Normal (appli es to non-numeric results) [facility] Mean Corpuscular HGB Conc 32.0-36.0 Normal (applies to no n-numeric results) [facility] Red Cell Distribution Width 11.5-14.5 Normal (appli es to non-numeric results) [facility] Platelet Count 321 X10 3/uL 130-450 Normal (applies to non-numeric results) [facility] Mean Platelet Volume 9.5-12.7 Normal (applies to non-num salome results) [facility] Imm Grans% (AUTO) 1 % 0-2 Normal (applies to non-numeri c results) [facility] Neutrophils % (AUTO) 69 % 40-75 Normal (applies to non-num salome results) [facility] Lymphocytes % (AUTO) 23 % 21-46 Normal (applies to non-num salome results) [facility] Monocytes % (AUTO) 6 % 5-12 Normal (applies to non-numer ic results) [facility] Eosinophils % (AUTO) 2 % 1-5 Normal (applies to non-num salome results) [facility] Basophils % (AUTO) 0 % 0-1 Normal (applies to non-numer ic results) [facility] Imm Grans# (AUTO) 0.0-0.5 Normal (applies to non-numeri c results) [facility] Neutrophils # (AUTO) 1.5-8.1 Above high normal [facility] Lymphocytes # (AUTO) 1.0-3.1 Normal (applies to non-num salome results) [facility] Monocytes # (AUTO) 0.2-1.3 Normal (applies to non-numer ic results) [facility] Eosinophils# (AUTO) 0.0-0.5 Normal (applies to non-nume yahir results) [facility] Basophils # (AUTO) 0.0-0.1 Normal (applies to non-numer ic results) [facility] ID Date Data Source [id number] 08/25/2021 07:55:00 AM [facility] Name: ANGELIA ARTHUR : 1965 Age/Sex: 55F Ordering Provider: NGUYEN Stahl [facility] Rec #: [id number] Reg Status[facility] Room #: Date of Service: 08/23/21 Report Number: [id number] cc:Valerie Tarango MD Send Report To: [id number] CT/CT Neck Soft Tissue w Contrast Reason [...] Dictation Date/Time: 08/23/21 1352 Transcribed Date/Time: 08/25/21 1717 Associate Creative Director: NANCY Name Value Range Interpretation Code Description Data Ekta rce(s) Supporting Document(s) ID Date Data Source [id number] 08/07/2021 10:30:00 AM EDT [facility] Name Value Range Interpretation Code Description Data Ekta rce(s) Supporting Document(s) EGD-dil [facility] LZZTCd3nEmIOSsBtJSNpRhiOVYnjGKfrYUXhC5N6WItuOc3WSIracjZkGJTjPt1+TNTdRC5gek7rXWEm gMy [file] Jose David/yw8twqnMqGUKwHYKyM3mDmN9O/uXygWKDKDdWw5aeODrQQywBlx8otX7b1angYi2O9WqYyNE47yO [file] Ana Laura+wMNo3+OUQceQ+uPMej+1gUYOPo+jBS7l35/dVGbwayu+Ern8B+iEVDsFTnht2W1tZDjpB5Z/scT [file] 5Ytes27vTwsrPEFw6DulESCLNRMfO1voCg9akVd1xEV+clinical studies specialist+Y1HnbzdiUCZdHygOsS0g9+wVBVIZ+Gn1h [file] Jose [file] occupational ther/5Ant81DZwk3CDAWu32JGf4tAEosElX7/pi9jzvn4NVAoJAMjY90852C2Yr+RtOAJUrzyOc6gcEsC [file] l1AqQ9KIKDHIB4JDs5RVY1OVBANGLABQYOJhRrHdTN EY1aGOYqGdU9ZVRnPHO1PCA0EVSURsJHQnNkO4PRZcZmXwN6Fg6oBu9vfYSaZGOpPa7FufThLEQiINSP C7ZrtnKwYTBiYUkiMGFlZKFjBp8IGQhsJZBxYM8+SzN0xnRosR9HmTdzUNCy7ZHjFBUeSYRUAA6JmIfM VNT4wGBYlUMBS9LpWRwTBHelMJdXoymdEGEyzpmU/M iZJMKxKcdKKaQzZSM0xeKjiA5SFV6pv7KsQV9Rr2EyvcS0gwWuBCm7Dap4TeAFEvJeND9G ID Date Data Source [id number] 07/31/2021 09:17:00 PM EDT [facility] Name Value Range Interpretation Code Description Data Ekta rce(s) Supporting Document(s) CRP,Wide Range result <3.00 [facility] Test Performed By: [facility] [address] [place] [address] Director: Sandra Zuñiga MD ID Date Data Source [id number] 07/31/2021 05:32:00 PM EDT [facility] Name Value Range Interpretation Code Description Data Ekta rce(s) Supporting Document(s) C-Reactive Protein,Wide Range <3.00 Above high normal [facility] Test Performed By: [facility] [address] [place] [address] Director: Sandra Zuñiga MD ID Date Data Source [id number] 07/31/2021 02:34:00 PM EDT [facility] Name Value Range Interpretation Code Description Data Ekta rce(s) Supporting Document(s) Sodium 139 mmol/L 136-145 Normal (applies to non-numeric resul ts) [facility] Potassium 3.5-5.1 Normal (applies to non-numeric resul ts) [facility] Chloride 99 mmol/L 98-107 Normal (applies to non-numeric resul ts) [facility] Carbon Dioxide CO2 21-32 Normal (applies to non-numer ic results) [facility] Anion Gap 5.0-16.0 Normal (applies to non-numeric resul ts) [facility] BUN 16 mg/dL 7-18 Normal (applies to non-numeric results) [facility] Creatinine,Serum 0.7-1.2 Normal (applies to non-numeric results) [facility] GFR >60 Normal (applies to non-numeric results) [facility] Glucose Level 105 mg/dL 60-99 Above high normal [facility] Reference range is only applicable when patient is fasting Note the following drug interference: Sulfasalazine Sulfapyridine Can see falsely depressed Can see falsely elevated result with up to 17% results with up to 11% decrease in measurement increase in measurement Recommend patients be collected for this test prior to administration of either drug. Calcium 8.5-10.1 Normal (applies to non-numeric resul ts) [facility] Bilirubin,Total 0.1-1.9 Normal (applies to non-numeric results) [facility] SGOT(AST) 26 U/L 15-37 Normal (applies to non-numeric resul ts) [facility] Note the following drug interference: Sulfasalazine Sulfapyridine Can see falsely depressed Can see falsely elevated result with up to 10% results with up to 10% decrease in measurement increase in measurement Recommend patients be collected for this test prior to administration of either drug. SGPT(ALT) 38 U/L 12-78 Normal (applies to non-numeric resul ts) [facility] Note the following drug interference: Sulfasalazine Sulfapyridine Can see falsely depressed Can see falsely elevated result with up to 29% results with up to 10% decrease in measurement increase in measurement Recommend patients be collected for this test prior to administration of either drug. Alkaline Phosphatase 122 U/L 38-126 Normal (applies to non-num salome results) [facility] can increase Alkaline Phosp le vels up to 2 times the normal adult value. Normal values for children and adolescents are 2 to 3 times the normal adult value. Total Protein 6.0-8.2 Normal (applies to non-numeric re sults) [facility] Albumin Level 3.4-5.0 Normal (applies to non-numeric re sults) [facility] ID Date Data Source [id number] 07/31/2021 02:34:00 PM EDT [facility] Name Value Range Interpretation Code Description Data Ekta rce(s) Supporting Document(s) Erythrocyte Sedimentation rate 24 mm/hr 0-20 Above high maria teresa l [facility] ID Date Data Source [id number] 07/31/2021 02:34:00 PM EDT [facility] Name Value Range Interpretation Code Description Data Ekta rce(s) Supporting Document(s) White Blood Count 3.5-10.5 Above high normal [facility] Red Blood Count 3.90-5.00 Normal (applies to non-numeric results) [facility] Hemoglobin 12.0-15.5 Normal (applies to non-numeric resul ts) [facility] Hematocrit 34.9-44.5 Normal (applies to non-numeric resul ts) [facility] Mean Corpuscular Volume 81.2-95.1 Normal (applies to non- numeric results) [facility] Mean Corpuscular Hgb 25.6-32.2 Normal (applies to non-num salome results) [facility] Mean Corpuscular Hgb Conc 32.0-36.0 Normal (applies to no n-numeric results) [facility] Red Cell Distribution Width 11.9-15.5 Normal (appli es to non-numeric results) [facility] Platelet Count 303 x10 3/uL 150-450 Normal (applies to non-numeric results) [facility] Mean Platelet Volume 9.4-12.4 Normal (applies to non-num salome results) [facility] Neutrophils% (Auto) 31.0-71.0 Normal (applies to non-nume yahir results) [facility] Lymphocytes% (Auto) 20.0-55.0 Normal (applies to non-nume yahir results) [facility] Monocytes% (Auto) 4.0-12.0 Normal (applies to non-numeri c results) [facility] Eosinophils% (Auto) 1.0-8.0 Normal (applies to non-nume yahir results) [facility] Basophils% (Auto) 0.0-2.0 Normal (applies to non-numeri c results) [facility] Immature Granulocytes% (Auto) 0.0-2.0 Normal (taiwo lies to non-numeric results) [facility] Neutrophils# (Auto) 1.50-6.20 Above high normal [facility] Lymphocytes# (Auto) 1.20-4.00 Normal (applies to non-nume yahir results) [facility] Monocytes# (Auto) 0.00-0.90 Normal (applies to non-numeri c results) [facility] Eosinophils# (Auto) 0.00-0.50 Normal (applies to non-nume yahir results) [facility] Basophils# (Auto) 0.00-0.20 Normal (applies to non-numeri c results) [facility] Immature Granulocytes# (Auto) 0.00-7.00 No rmal (applies to non-numeric results) [facility] ID Date Data Source [id number] 07/31/2021 02:24:00 PM EDT [facility] Name Value Range Interpretation Code Description Data Ekta rce(s) Supporting Document(s) Triglycerides 233 mg/dL <150 Above high normal [facility] Cholesterol 198 mg/dL 100-200 Normal (applies to non-numeric resu lts) [facility] LDL Cholesterol Calculated 114 0-130 Normal (applies to n on-numeric results) [facility] HDL Cholesterol 37 mg/dL 40-60 Below low normal [facility] Cholesterol/HDL Ratio 3.6-6.7 Normal (applies to non-nu meric results) [facility] ID Date Data Source [id number] 07/31/2021 02:13:00 PM EDT [facility] Name Value Range Interpretation Code Description Data Ekta rce(s) Supporting Document(s) Hemoglobin A1c Above high normal [facility] Reference Range Normal: < 5.7% Pr ediabetes: 5.7-6.4% Diabetes: > 6.5% Estimated Avg Glucose 137 mg/dL 126-240 Normal (applies to non-numeric results) [facility] ID Date Data Source [id number] 07/16/2021 05:16:00 PM EDT [facility] Name Value Range Interpretation Code Description Data Ekta rce(s) Supporting Document(s) White Blood Count 3.5-10.5 Above high normal [facility] Red Blood Count 3.90-5.00 Normal (applies to non-numeric results) [facility] Hemoglobin 12.0-15.5 Normal (applies to non-numeric resul ts) [facility] Hematocrit 34.9-44.5 Normal (applies to non-numeric resul ts) [facility] Mean Corpuscular Volume 81.2-95.1 Normal (applies to non- numeric results) [facility] Mean Corpuscular Hgb 25.6-32.2 Normal (applies to non-num salome results) [facility] Mean Corpuscular Hgb Conc 32.0-36.0 Normal (applies to no n-numeric results) [facility] Red Cell Distribution Width 11.9-15.5 Normal (appli es to non-numeric results) [facility] Platelet Count 319 x10 3/uL 150-450 Normal (applies to non-numeric results) [facility] Mean Platelet Volume 9.4-12.4 Normal (applies to non-num salome results) [facility] Neutrophils% (Auto) 31.0-71.0 Normal (applies to non-nume yahir results) [facility] Lymphocytes% (Auto) 20.0-55.0 Normal (applies to non-nume yahir results) [facility] Monocytes% (Auto) 4.0-12.0 Normal (applies to non-numeri c results) [facility] Eosinophils% (Auto) 1.0-8.0 Normal (applies to non-nume yahir results) [facility] Basophils% (Auto) 0.0-2.0 Normal (applies to non-numeri c results) [facility] Immature Granulocytes% (Auto) 0.0-2.0 Normal (taiwo lies to non-numeric results) [facility] Neutrophils# (Auto) 1.50-6.20 Above high normal [facility] Lymphocytes# (Auto) 1.20-4.00 Above high normal [facility] Monocytes# (Auto) 0.00-0.90 Normal (applies to non-numeri c results) [facility] Eosinophils# (Auto) 0.00-0.50 Normal (applies to non-nume yahir results) [facility] Basophils# (Auto) 0.00-0.20 Normal (applies to non-numeri c results) [facility] Immature Granulocytes# (Auto) 0.00-7.00 No rmal (applies to non-numeric results) [facility] ID Date Data Source [id number] 07/08/2021 11:53:00 AM EDT [facility] TUAN Campbell BRYANTLUCY ROUTINECLINICAL HISTORY: [...] rce(s) Supporting Document(s) ID Date Data Source [id number] 07/03/2021 11:26:00 PM EDT [facility] Name Value Range Interpretation Code Description Data Ekta rce(s) Supporting Document(s) CRP,Wide Range result <3.00 Anglin [facility] Test Performed By: [facility] [address] [place] [address] Director: Sandra Zuñiga MD ID Date Data Source [id number] 07/03/2021 10:16:00 PM EDT [facility] Name Value Range Interpretation Code Description Data Ekta rce(s) Supporting Document(s) C-Reactive Protein,Wide Range <3.00 Above high normal [facility] Test Performed By: [facility] [address] [place] [address] Director: Sandra Zuñiga MD ID Date Data Source [id number] 07/03/2021 05:11:00 PM EDT [facility] Name Value Range Interpretation Code Description Data Ekta rce(s) Supporting Document(s) Sodium 140 mmol/L 136-145 Normal (applies to non-numeric resul ts) [facility] Potassium 3.5-5.1 Normal (applies to non-numeric resul ts) [facility] Chloride 100 mmol/L 98-107 Normal (applies to non-numeric resul ts) [facility] Carbon Dioxide CO2 21-32 Normal (applies to non-numer ic results) [facility] Anion Gap 5.0-16.0 Normal (applies to non-numeric resul ts) [facility] BUN 16 mg/dL 7-18 Normal (applies to non-numeric results) [facility] Creatinine,Serum 0.7-1.2 Normal (applies to non-numeric results) [facility] GFR >60 Normal (applies to non-numeric results) [facility] Glucose Level 69 mg/dL 60-99 Normal (applies to non-numeric re sults) [facility] Reference range is only applicable when patient is fasting Note the following drug interference: Sulfasalazine Sulfapyridine Can see falsely depressed Can see falsely elevated result with up to 17% results with up to 11% decrease in measurement increase in measurement Recommend patients be collected for this test prior to administration of either drug. Calcium 8.5-10.1 Normal (applies to non-numeric resul ts) [facility] Bilirubin,Total 0.1-1.9 Normal (applies to non-numeric results) [facility] SGOT(AST) 27 U/L 15-37 Normal (applies to non-numeric resul ts) [facility] Note the following drug interference: Sulfasalazine Sulfapyridine Can see falsely depressed Can see falsely elevated result with up to 10% results with up to 10% decrease in measurement increase in measurement Recommend patients be collected for this test prior to administration of either drug. SGPT(ALT) 39 U/L 12-78 Normal (applies to non-numeric resul ts) [facility] Note the following drug interference: Sulfasalazine Sulfapyridine Can see falsely depressed Can see falsely elevated result with up to 29% results with up to 10% decrease in measurement increase in measurement Recommend patients be collected for this test prior to administration of either drug. Alkaline Phosphatase 122 U/L 38-126 Normal (applies to non-num salome results) [facility] can increase Alkaline Phosp le vels up to 2 times the normal adult value. Normal values for children and adolescents are 2 to 3 times the normal adult value. Total Protein 6.0-8.2 Normal (applies to non-numeric re sults) [facility] Albumin Level 3.4-5.0 Normal (applies to non-numeric re sults) [facility] ID Date Data Source [id number] 07/03/2021 04:47:00 PM EDT [facility] Name Value Range Interpretation Code Description Data Ekta rce(s) Supporting Document(s) White Blood Count 3.5-10.5 Above high normal [facility] Red Blood Count 3.90-5.00 Normal (applies to non-numeric results) [facility] Hemoglobin 12.0-15.5 Normal (applies to non-numeric resul ts) [facility] Hematocrit 34.9-44.5 Normal (applies to non-numeric resul ts) [facility] Mean Corpuscular Volume 81.2-95.1 Normal (applies to non- numeric results) [facility] Mean Corpuscular Hgb 25.6-32.2 Normal (applies to non-num salome results) [facility] Mean Corpuscular Hgb Conc 32.0-36.0 Normal (applies to no n-numeric results) [facility] Red Cell Distribution Width 11.9-15.5 Normal (appli es to non-numeric results) [facility] Platelet Count 330 x10 3/uL 150-450 Normal (applies to non-numeric results) [facility] Mean Platelet Volume 9.4-12.4 Normal (applies to non-num salome results) [facility] Neutrophils% (Auto) 31.0-71.0 Normal (applies to non-nume yahir results) [facility] Lymphocytes% (Auto) 20.0-55.0 Normal (applies to non-nume yahir results) [facility] Monocytes% (Auto) 4.0-12.0 Normal (applies to non-numeri c results) [facility] Eosinophils% (Auto) 1.0-8.0 Normal (applies to non-nume yahir results) [facility] Basophils% (Auto) 0.0-2.0 Normal (applies to non-numeri c results) [facility] Immature Granulocytes% (Auto) 0.0-2.0 Normal (taiwo lies to non-numeric results) [facility] Neutrophils# (Auto) 1.50-6.20 Above high normal [facility] Lymphocytes# (Auto) 1.20-4.00 Normal (applies to non-nume yahir results) [facility] Monocytes# (Auto) 0.00-0.90 Normal (applies to non-numeri c results) [facility] Eosinophils# (Auto) 0.00-0.50 Normal (applies to non-nume yahir results) [facility] Basophils# (Auto) 0.00-0.20 Normal (applies to non-numeri c results) [facility] Immature Granulocytes# (Auto) 0.00-7.00 No rmal (applies to non-numeric results) [facility] ID Date Data Source [id number] 07/03/2021 04:47:00 PM EDT [facility] Name Value Range Interpretation Code Description Data Ekta rce(s) Supporting Document(s) Erythrocyte Sedimentation rate 26 mm/hr 0-20 Above high maria teresa l [facility] ID Date Data Source [id number] 07/01/2021 09:30:00 AM EDT [facility] Name Value Range Interpretation Code Description Data Ekta rce(s) Supporting Document(s) Follow Up [facility] MPDQNk7kLuRXCjBhDGZeXseNELceZChdEXJkQ2J7GPpsUe0KHFvmeaRcLXAoVg4+DXIsHO2kbu2tJEQj gMy [file] Director Smb Sales+z47kReZayVRIXkcM6/Qxnx1AggAWOxN1+UROFpxwqkBpS0gnzkaQ5RXassMw7z2lYeVicJl2vHnpE [file] 3zD+nxYY6Q/vkA5PySG9ygZjgHJSEkjmsy7rb3+WcJm3xFEM4mW58aU/8qG+manufacturing manager/q0D0NTTwO0LC9pdg [file] trestle mainternance laborer+zjgh9FV5lRWbUvUn7T3NLlu/Wiqwhdo0rSqDJ4 [file] 6RiBA0WT4BvoqzTiCCAgN+Juan Alberto/LQfQoOlr5CkL5sruDVRKTNVw5eJsX7nBrnTI2QADHxBvw2lWCEOmiO [file] SckpASo7MoQUkHhEz7zqgJLnOe9VytPhuo7GeN/monument letterer [file] 6cg9iDu1T6Mac0xAN99vRusqq68/SBdVrItT4RyPRoBTlnBiPZXzS2u+23duaI4mYWwpoXlABuhJO/EDGER TECHNICIAN [file] KouLMhbxpoq+R2SgmHsaTUNjbfYv/oR852RlZ9ju+uGW/8EcJyd+WJrkvb1k73gUslBgdEW+imaW/swatch paster [file] 5hn1EdRxRdZ4h0rqnOpryL8jw13J62cfbBnBYndhT+GREASE AND TALLOW [file] enrollment services vice president/oB7uZzrTkUmC19DZUNtTZ2+WGE4WG8gZydERRXhuFktIOhupzc08RKKO0ITBtodpehe90/o5IKUv [file] nZ+liK54qwMgzJVmoHqhmC/2tCXo+cSjcCyq1S1Q7W1n1X2KDRA+water/wastewater project manager+6HxjYXOtf8SI759jmGPHT3EF [file] medical claims examiner+OXQaZfYUmJ5QWrnH566zgbWSmb3wnlBV2jyDEq [file] clerk rating/mDNaxKPwcDPFdrtL8m+2Tni3wu3EQ0jBUADvsbM8b3WZpzkjzOUh/vhyg0+ruPpZRer8vaASNCeJ [file] 9qrjVrfX+mDlfGNv86A7wceMxR/D1Nd1pb7IHWidHNV6B55+R14sYpNf39fuTV+Aaz3swa7bCB1L+family resource coordinator ylOL+gnIsXKEKNCUUCfECcF6tw3X305jJ+zvzSUAqV A0mR46SwcZmlrOFBkEiWG0qx6UOyFWDGTy723DO+7EX/U1tA4Zf+OywGSZ1a92t8Y6PEazN5mhwLTouN LklkSiqRJIFbFLcDwCITzXFpfAIKCjR74OrKhJMa3+rxng+ex+lHXmsOFuVEODlMyXr5ak80BJRJwmsI PmbIJKzk5o6j4WyLdIsy8C+ySsAjP3hrxK4y0ZhSEh Regcw4vsZwSgDRrGps4n4Hr/uonQsiRaP7qPbLdniAJ95HyvqnKnrPCule/rZb8cTZriFJniQmyikfvX JrzZh7fQ6x3eqSs0Ocp24dSjf7u8g8XlvwCvw9mTRHFo9duMP6XS8Uo4Yik6a25eTz+Y4hlQqVmnsIab tiHZoa9jNdQZEnDnns8Rx4bIT1JhdNmsQIVoaZTRSP a8kR7q2wE9/pqoHVV2ZmFNDbOLMwc0E7s5YtgRuNrGuZSKOTQzpCGHUr8MWw7ywyvRcj8MS5gFloI0LI kGSbgVgfc1HH2pbtJc28rgfn6SihgKhdtFWp8VkoGSgRFnocdgtbQmFvnthr5OHVfYVgPWOBKw+vinny/T [file] M [file] JiyiT1Rtb+EqQtj0aI+Jose Guadalupe//mXBFkv/0nK+dHivvbE [file] MfgEKq9qHtP++X7ptHzdMN3zSsLyGaPfJh2eUPlxwk4Qap+3gLkihj0NesrM0XqbPe0zreljPIRZN+GREASE AND TALLOW PUMPER [file] eqNi47lRxr+4gKCq5lKY0vpFx8cvUb3jA/[facility]+gej [file] 4peTrzk2gj9SFkOkcfvmIy3hVgQL462b0ndFswdVrPkWUTG4/9Btz0Q0lJd9f5UBQ5tXlNhh/4hI/dumb waiter operator [file] +j0uQrpmguIeRQvoTwKvwz+zeKP2Tu2Rj2qBnhLmx2eRKuqIplJygv/Pastora+irKWxuLqsg1yHeFnT5MBS L1iqIlxJa3tMA7ztKoWf6gwXZs9kpKTthdAZ+pNLZN cHO6AXRPzTa1ekYFPkqk1k/NHpmNeBMPNSm+Dm3WpSsG8ZTzzVr6AlaZfqNySxw8gD2XTLaQ/VZyHF+9 wL5A41WWGqG9YRVyPt17zu6TBgnw1VvcUxu+aK+kgy11wlrWv1wezOzbZiWhiAiNX2pVq0gR0NLU8xVe J/ukVa2o7uwxU3G5U3ZaUlPTt3ZbzP7v9zoIpLhuUB UwTvQvxyJItpquNrWZaWu8JcmOjOBh9A578QcwYR0FYrgVBoeVh+j63Snr6i8nnzwV5lXo36ctbTSZ31 K7L66szk5VaitBrgqdH6HcYGarDnhJ3Q6fCD1d6qG92peG26m+Oi0NCw5z7oB2HYF6pVJgK1st3MAf2d qwvVeWT/pdXmIDy0lj5F1TatJiUr2D8KlIbsynh/P6 9z3FaUc63+jvsn9NDM0KOdrvvo32mB78aj7UkR/L2jXt/v3RBXhtzwsjakcSzk6FpC7Agyy0GEs5Fkg8 D6SshcLLWV1kH8lFodV4f09JUy3vW2G5g2Ep3neVXbUt5zLw170NAQ6a+WhEf9xExUkWTPuzZJUEB3hP jZFvPhyS29SiW60xuBi3tzC4wNjjGa/water attendant/+7uA8S9 [file] 5RbyA5A4VWvzgeTqFcUY+zDI+FLXfH/rod hanger/YKbeAV6riRkNxo62rn8kP027gGYg9sI0NndbVupewa+6Pq [file] reimbursement representative++orwuCp/C+f2k+KHcDpV5w5BGkbLl2Ur83jFR5rbHMX3ufpZ1O4TezjTv4rHc9PDXoKeEeVfU3Di [file] ZHcFYnrcn4OhJthWRPjG/dbeKSmbrPv+EhWU05/vtbng7giGVgawP+EDGER TECHNICIAN/9Lm/o6jKykYwO2qJPCm4RJS [file] OJRMqiRpF3FjdKWJIRTnB8DCXlKSJOYV1mJFPNDdGS IWq0PAJlDuNHPWa0BWQ6ZAXTNLojJSG5NnRlZm9aHw8tkUMuAATjRy4EjwZdQJNzTYPGS9RifnGrKyVo GMxiQENaHEYyTh0ENLirUOCxBQ0+XkE8xzUyfU1MfTmzNLCkVLPsPLRsRZDBLZ8RlFelLQWNFgQsXPfT vm8IYERprDO3deVXWoZUy8MAvgtzHSI7IlFIpfTNqB aPuQ5cUeZdcowvpQVpzjxFkHNF6fFFoROuVdGThjNNOIuoilWyqFIqGH8ZBcSwCV6uuz9NWwT7PTS8nF KrOs3JIJL8AcHlFc3TYCLYH1O= ID Date Data Source [id number] 06/21/2021 09:57:00 PM EDT [facility] Name: ANGELIA ARTHUR Med Rec #: [id number] : 1965 Age/Sex: 55F Date of Service: 06/21/21 PHYSICIAN CHART Physician Documentation [facility] Name: Angelia Arthur Age: 55 yrs [...] she has no bowel or bladder disorder.. FINISH OPENER: 22:03 LMP N/A - Post-menopause jb7 Historical: [...] smoker, quit smoking 2017 ago. Preferred Language: Kazakh. ROS: 22:45 Constitutional: I reviewed 10 systems [...] for. mlm1 22:47 ED course: Postoperative bleeding. [facility] 06/22 01:24 ED course: Radiology has [...] 00:00 Follow up: Response: Pain is decreased [facility] 06/21 23:39 Drug: HYDROmorphone 0.5 mg [hydromorphone 0.5 mg/0.5 mL arj injection syringe (0.5 mL)] Route: IVP; Site: anterior chest - left; 06/22 00:00 Follow up: Response: Pain is decreased [facility] 06/21 23:39 Drug: Ondansetron (PF) 4 mg [ondansetron HCl (PF) 4 mg/2 mL arj injection solution (2 mL)] Route: IVP; Infused Over: 2 mins; Site: anterior chest - left; 06/22 00:00 Follow up: Response: Nausea is decreased [facility] 01:47 Drug: Magnesium Citrate 300 ml [...] Discharge Summary Sheet mlm1 - Constipation, Adult, Sbtx-ny-Aciw mlm1 - Opioid Pain Medicine Management mlm1 [...] rce(s) Supporting Document(s) ID Date Data Source [id number] 06/21/2021 09:57:00 PM EDT [facility] Name: ANGELIA ARTHUR [facility] Rec #: [id number] : 1965 Age/Sex: 55F Date of Service: 06/21/21 DISPOSITION SUMMARY Discharge Summary [facility] Name:Angelia Arthur Emergency Department Age:55 yrs [...] Physician: Ann Cheng MD Private MD: Baylee Hneao MD Mid Level Provider: Followup Physician: Baylee Henao MD Orders: UA., Cbc With Auto Differential, Ct Abdomen & Pelvis with Con, CMP, Urinalysis Auto w/Microscopy, CBC with Manual Differential, Iv Saline Lock, Collect Urine - Clean Catch, ketorolac, HYDROmorphone, Ondansetron (PF), Magnesium Citrate Discharge Instruction: Discharge Summary Sheet, Constipation, Adult, Bcwv-ma-Larg, Opioid Pain Medicine Management, Medication Reconciliation, Fax Visit Summary for Baylee Henao MD Name Value Range Interpretation Code Description Data Ekta rce(s) Supporting Document(s) ID Date Data Source [id number] 06/21/2021 09:57:00 PM EDT [facility] Name: ANGELIA ARTHUR [facility] Rec #: [id number] : 1965 Age/Sex: 55F Date of Service: 06/21/21 NURSE CHART Nurse's Notes [facility] Name: Angelia Arthur Age: 55 yrs Sex: Female : 1965 Arrival Date: 06/21/2021 Time: 21:57 Bed 4 Private MD: Baylee Henao Diagnosis: Postoperative pain;Constipation Presentation: 06/21 22:01 Transition of care: patient was not received from another [facility] setting of care. Presenting complaint: [...] COVID-19? No. 22:01 Method Of Arrival: Walk-In [facility] 22:01 Acuity: Urgent - 3 [facility] Triage Assessment: 22:03 SEPSIS SCREEN: A Confirmed or Suspected Infection is [facility] Unknown, their temperature is not [...] is oriented to person, place and time. FINISH OPENER: 22:03 LMP N/A - Post- menopause [facility] Historical: - Allergies: Azulfidine; Reglan; [...] smoker, quit smoking 2017 ago. Preferred Language: Kazakh. Screenin:07 AUDIT 1. How often do you have a drink containing alcohol? [facility] Never (0 points). Drug Abuse [...] & dry. 06/22 00:21 See Triage Assessment. [facility] Vital Signs: 06/21 22:03 BP 167 / 98; Pulse 104; Resp 18; Temp 98.4; Pulse Ox 97% ; jb7 Weight 113.4 kg; Height 5 ft. 3 in. (160.02 cm); Pain 4/10; 23:41 BP 128 / 68; Pulse 90; Resp 16; Pulse Ox 94% on R/A; dcj 06/22 00:20 BP 120 / 59; Pulse 85; Resp 16; Pulse Ox 96% on R/A; dcj 01:50 BP 146 / 76; Pulse 89; Resp 16; Pulse Ox 95% on R/A; dcj 06/21 22:03 Body Mass Index 44.29 (113.40 [...] rce(s) Supporting Document(s) ID Date Data Source [id number] 06/23/2021 03:30:00 PM EDT [facility] Name Value Range Interpretation Code Description Data Ekta rce(s) Supporting Document(s) White Blood Count 4.8-10.8 Above high normal [facility] Red Blood Count 3.68-5.22 Normal (applies to non-numeric results) [facility] Hemoglobin 11.2-15.7 Normal (applies to non-numeric resul ts) [facility] Hematocrit 34.1-44.9 Normal (applies to non-numeric resul ts) [facility] Mean Corpuscular Volume 81-99 Normal (applies to non- numeric results) [facility] Mean Corpuscular Hemoglobin 27.0-33.0 Normal (appli es to non-numeric results) [facility] Mean Corpuscular HGB Conc 32.0-36.0 Normal (applies to no n-numeric results) [facility] Red Cell Distribution Width 11.5-14.5 Normal (appli es to non-numeric results) [facility] Platelet Count 301 X10 3/uL 130-450 Normal (applies to non-numeric results) [facility] Mean Platelet Volume 9.5-12.7 Normal (applies to non-num salome results) [facility] Total Cells Counted 100 0-100 Normal (applies to non-nume yahir results) [facility] Neutrophils % (manual) 53 % 40-75 Normal (applies to non-n umeric results) [facility] Lymphocytes % (manual) 22 % 21-46 Normal (applies to non-n umeric results) [facility] Monocytes % (manual) 5 % 5-12 Normal (applies to non-num salome results) [facility] Eosinophils % (manual) 1 % 1-5 Normal (applies to non-n umeric results) [facility] Basophils % (manual) 0 % 0-1 Normal (applies to non-num salome results) [facility] Band Neutrophils% (manual) 2 % 0-5 Normal (applies to n on-numeric results) [facility] Atypical Lymph% (manual) 17 % 0-5 Above high normal [facility] Neutrophils # (Manual) 1.5-8.1 Normal (applies to non-n umeric results) [facility] Lymphocytes # (Manual) 1.0-3.1 Above high normal [facility] Monocytes # (Manual) 0.2-1.3 Normal (applies to non-num salome results) [facility] Eosinophils# (Manual) 0.0-0.5 Normal (applies to non-nu meric results) [facility] Basophils # (Manual) 0.0-0.1 Normal (applies to non-num salome results) [facility] Platelet Estimate Adequate Normal (applies to non-numeri c results) [facility] Estimate agrees with automated count Slide Reviewed By Normal (applies to non-numeri c results) [facility] Slide has been reviewed and findings con firmed by a technologist/bicycle service technician. Slide reviewed by Pathologist for confirmation. 06/23/21 DR ZUÑIGA. Slide referred to Pathologist for review. ID Date Data Source [id number] 06/22/2021 12:03:00 AM EDT [facility] Name Value Range Interpretation Code Description Data Ekta rce(s) Supporting Document(s) Sodium 139 mmol/L 137-145 Normal (applies to non-numeric resul ts) [facility] Potassium 3.5-5.1 Normal (applies to non-numeric resul ts) [facility] Chloride 106 mmol/L 98-112 Normal (applies to non-numeric resul ts) [facility] Carbon Dioxide CO2 22.0-33.0 Normal (applies to non-numer ic results) [facility] Anion Gap 4.0-11.0 Normal (applies to non-numeric resul ts) [facility] BUN 18 mg/dL 7-17 Above high normal [facility] Creatinine 0.70-1.20 Below low normal [facility] GFR 90 mL/min >60 Normal (applies to non-numeric resul ts) [facility] Result based on MDRD formula. Glucose Level 139 mg/dL 74-99 Above high normal [facility] The reference range is only applicable w hen fasting. Calcium-Uncorrected 8.4-10.2 Normal (applies to non-nume yahir results) [facility] Corrected Calcium 8.4-10.2 Normal (applies to non-numeri c results) [facility] Bilirubin,Total 0.2-1.3 Normal (applies to non-numeric results) [facility] SGOT(AST) 18 U/L 14-36 Normal (applies to non-numeric resul ts) [facility] SGPT(ALT) 32 U/L 9-52 Normal (applies to non-numeric resul ts) [facility] Alkaline Phosphatase 111 U/L 38-126 Normal (applies to non-num salome results) [facility] can increase Alkaline Phosp le vels up to 2 times the normal adult value. Normal values for children and adolescents are 2 to 3 times the normal adult value. Total Protein 6.3-8.2 Normal (applies to non-numeric re sults) [facility] Albumin 3.5-5.0 Below low normal [facility] ID Date Data Source [id number] 06/21/2021 11:37:00 PM EDT [facility] Name Value Range Interpretation Code Description Data Ekta rce(s) Supporting Document(s) RBC,Auto Urine 0-2 Normal (applies to non-numeric r esults) [facility] WBC Urine Auto 0-10 Normal (applies to non-numeric r esults) [facility] Casts,Hyaline,Urine Auto 0-2 Normal (applies to non -numeric results) [facility] Bacteria Urine Auto None Seen Normal (applies to non-nume yahir results) [facility] Epithelial Cell Ur Auto None-Few Normal (applies to non- numeric results) [facility] ID Date Data Source [id number] 06/21/2021 11:37:00 PM EDT [facility] Name Value Range Interpretation Code Description Data Ekta rce(s) Supporting Document(s) Color,Urine Yellow Normal (applies to non-numeric resu lts) [facility] Clarity,Urine Clear Normal (applies to non-numeric re sults) [facility] Specific [place],Urine 1.001-1.030 Normal (applies to non- numeric results) [facility] PH,Urine 5.0-8.0 Normal (applies to non-numeric resul ts) [facility] Protein,Urine Negative [facility] Glucose,Urine (UA) Negative Normal (applies to non-numer ic results) [facility] Ketones,Urine Negative Normal (applies to non-numeric re sults) [facility] Blood,Urine Negative Normal (applies to non-numeric resu lts) [facility] Bilirubin,Urine Negative Normal (applies to non-numeric results) [facility] Urobilinogen,Urine Norm 0.2-1 Normal (applies to non-numer ic results) [facility] Leukocyte Esterase,Urine Negative Normal (applies to non -numeric results) [facility] Nitrite,Urine Negative Normal (applies to non-numeric re sults) [facility] ID Date Data Source [id number] 06/22/2021 01:22:00 AM EDT [facility] Name: ANGELIA ARTHUR : 1965 Age/Sex: 55F Ordering Provider: Ann Cheng DO Med Rec #: [id number] Reg Status: REG ER Room #: Date of Service: 06/21/21 Report Number: [id number] cc:Valerie Tarango MD; Ann Cheng DO Send [...] No ascites is noted. No intracranial hematoma. [place] spinal fixation device noted L5-S1 similar to [...] 06/22/21121 Dictation Date/Time: 06/22/21121 Transcribed Date/Time: 06/22/21121 Associate Creative Director: Name Value Range Interpretation Code Description Data Ekta rce(s) Supporting Document(s) ID Date Data Source [id number] 06/19/2021 01:57:00 PM EDT [facility] Name Value Range Interpretation Code Description Data Ekta rce(s) Supporting Document(s) ID Date Data Source [id number] 06/16/2021 03:00:00 PM EDT [facility] Quantity to be Transfused 2 Transfuse W hen? On Hold Until Notified Name Value Range Interpretation Code Description Data Ekta rce(s) Supporting Document(s) BLOOD TYPE PATIENT B Positive Normal (applies to non-numer ic results) [facility] ANTIBODY SCREEN NEGATIVE Normal (applies to non-numeric results) [facility] ID Date Data Source [id number] 06/13/2021 01:17:00 PM EDT [facility] Name Value Range Interpretation Code Description Data Ekta rce(s) Supporting Document(s) Beta HCG,Quantitative 2 mIU/mL [id number] Below low normal [facility] Non- Females (ages 18-62): 1-3 mIU/mL Adult Males (ages 19-67: Less than or equal to 1 mIU/mL Females: Gestational Age: 0-1 Week: 5-50 mIU/mL 1-2 Week: 50-500 mIU/mL 2-3 Weeks: 100-5,000 mIU/mL 3-4 Weeks: 500-10,000 mIU/mL 4-5 Weeks: 1,000- 50,000 mIU/mL 5-6 Weeks: 10,000-100,000 mIU/mL 6-8 Weeks: 15,000- 200,000 mIU/mL 2-3 Months: 10,000-100,000 mIU/mL 2nd Trimester: 3000- 77562 mIU/mL 3rd Trimester: 1000-18651 mIU/ml ID Date Data Source [id number] 06/13/2021 12:53:00 PM EDT [facility] Name Value Range Interpretation Code Description Data Ekta rce(s) Supporting Document(s) White Blood Count 4.8-10.8 Above high normal [facility] Red Blood Count 3.68-5.22 Normal (applies to non-numeric results) [facility] Hemoglobin 11.2-15.7 Normal (applies to non-numeric resul ts) [facility] Hematocrit 34.1-44.9 Normal (applies to non-numeric resul ts) [facility] Mean Corpuscular Volume 81-99 Normal (applies to non- numeric results) [facility] Mean Corpuscular Hemoglobin 27.0-33.0 Normal (appli es to non-numeric results) [facility] Mean Corpuscular HGB Conc 32.0-36.0 Normal (applies to no n-numeric results) [facility] Red Cell Distribution Width 11.5-14.5 Normal (appli es to non-numeric results) [facility] Platelet Count 303 X10 3/uL 130-450 Normal (applies to non-numeric results) [facility] Mean Platelet Volume 9.5-12.7 Below low normal [facility] ID Date Data Source [id number] 06/17/2021 04:16:00 PM EDT [facility] Name Value Range Interpretation Code Description Data Ekta rce(s) Supporting Document(s) Urine HCG-POC Negative Normal (applies to non-numeric re sults) [facility] ID Date Data Source [id number] 06/11/2021 09:00:00 AM EDT [facility] Name Value Range Interpretation Code Description Data Ekta rce(s) Supporting Document(s) Respiratory specimen severe acute respir atory syndrome coronavirus 2 (SARS-CoV-2) RNA Negative (qualifier value) [facility] This lab was ordered by [facility] and reported by . ID Date Data Source [id number] 06/12/2021 07:43:00 AM EDT [facility] Name Value Range Interpretation Code Description Data Ekta rce(s) Supporting Document(s) SARS-CoV-2 RNA INHOUSE Negative Normal (applies to non-n umeric results) [facility] THIS IS A STATE REPORTABLE COMMUNICABLE DISEASE. Testing was performed using the [employer] COVID-19 MDx Assay. This test has been [...] be found at the following links: Providers: https://www.[employer].gov/media/153841/download Patients : https://www.[employer].gov/media/098542/download Negative results do not preclude SARS-CoV-2 infection and should not be used as the sole basis for patient management decisions. Negative results must be combined with clinical observations,patient history, and epidemiological information. ID Date Data Source [id number] 06/05/2021 02:16:00 PM EDT [facility] Name Value Range Interpretation Code Description Data Ekta rce(s) Supporting Document(s) Sodium 141 mmol/L 136-145 Normal (applies to non-numeric resul ts) [facility] Potassium 3.5-5.1 Normal (applies to non-numeric resul ts) [facility] Chloride 104 mmol/L 98-107 Normal (applies to non-numeric resul ts) [facility] Carbon Dioxide CO2 21-32 Normal (applies to non-numer ic results) [facility] Anion Gap 5.0-16.0 Normal (applies to non-numeric resul ts) [facility] BUN 12 mg/dL 7-18 Normal (applies to non-numeric results) [facility] Creatinine,Serum 0.7-1.2 Normal (applies to non-numeric results) [facility] GFR >60 Normal (applies to non-numeric results) [facility] Glucose Level 80 mg/dL 60-99 Normal (applies to non-numeric re sults) [facility] Reference range is only applicable when patient is fasting Note the following drug interference: Sulfasalazine Sulfapyridine Can see falsely depressed Can see falsely elevated result with up to 17% results with up to 11% decrease in measurement increase in measurement Recommend patients be collected for this test prior to administration of either drug. Calcium 8.5-10.1 Below low normal [facility] Bilirubin,Total 0.1-1.9 Normal (applies to non-numeric results) [facility] SGOT(AST) 25 U/L 15-37 Normal (applies to non-numeric resul ts) [facility] Note the following drug interference: Sulfasalazine Sulfapyridine Can see falsely depressed Can see falsely elevated result with up to 10% results with up to 10% decrease in measurement increase in measurement Recommend patients be collected for this test prior to administration of either drug. SGPT(ALT) 42 U/L 12-78 Normal (applies to non-numeric resul ts) [facility] Note the following drug interference: Sulfasalazine Sulfapyridine Can see falsely depressed Can see falsely elevated result with up to 29% results with up to 10% decrease in measurement increase in measurement Recommend patients be collected for this test prior to administration of either drug. Alkaline Phosphatase 113 U/L 38-126 Normal (applies to non-num salome results) [facility] can increase Alkaline Phosp le vels up to 2 times the normal adult value. Normal values for children and adolescents are 2 to 3 times the normal adult value. Total Protein 6.0-8.2 Normal (applies to non-numeric re sults) [facility] Albumin Level 3.4-5.0 Normal (applies to non-numeric re sults) [facility] ID Date Data Source [id number] 06/05/2021 01:38:00 PM EDT [facility] Name Value Range Interpretation Code Description Data Ekta rce(s) Supporting Document(s) Erythrocyte Sedimentation rate 25 mm/hr 0-20 Above high maria teresa l [facility] ID Date Data Source [id number] 06/05/2021 01:38:00 PM EDT [facility] Name Value Range Interpretation Code Description Data Ekta rce(s) Supporting Document(s) White Blood Count 3.5-10.5 Normal (applies to non-numeri c results) [facility] Red Blood Count 3.90-5.00 Normal (applies to non-numeric results) [facility] Hemoglobin 12.0-15.5 Normal (applies to non-numeric resul ts) [facility] Hematocrit 34.9-44.5 Normal (applies to non-numeric resul ts) [facility] Mean Corpuscular Volume 81.2-95.1 Normal (applies to non- numeric results) [facility] Mean Corpuscular Hgb 25.6-32.2 Normal (applies to non-num salome results) [facility] Mean Corpuscular Hgb Conc 32.0-36.0 Normal (applies to no n-numeric results) [facility] Red Cell Distribution Width 11.9-15.5 Normal (appli es to non-numeric results) [facility] Platelet Count 303 x10 3/uL 150-450 Normal (applies to non-numeric results) [facility] Mean Platelet Volume 9.4-12.4 Normal (applies to non-num salome results) [facility] Neutrophils% (Auto) 31.0-71.0 Normal (applies to non-nume yahir results) [facility] Lymphocytes% (Auto) 20.0-55.0 Normal (applies to non-nume yahir results) [facility] Monocytes% (Auto) 4.0-12.0 Normal (applies to non-numeri c results) [facility] Eosinophils% (Auto) 1.0-8.0 Normal (applies to non-nume yahir results) [facility] Basophils% (Auto) 0.0-2.0 Normal (applies to non-numeri c results) [facility] Immature Granulocytes% (Auto) 0.0-2.0 Normal (taiwo lies to non-numeric results) [facility] Neutrophils# (Auto) 1.50-6.20 Normal (applies to non-nume yahir results) [facility] Lymphocytes# (Auto) 1.20-4.00 Normal (applies to non-nume yahir results) [facility] Monocytes# (Auto) 0.00-0.90 Normal (applies to non-numeri c results) [facility] Eosinophils# (Auto) 0.00-0.50 Normal (applies to non-nume yahir results) [facility] Basophils# (Auto) 0.00-0.20 Normal (applies to non-numeri c results) [facility] Immature Granulocytes# (Auto) 0.00-7.00 No rmal (applies to non-numeric results) [facility] ID Date Data Source [id number] 06/05/2021 05:41:00 PM EDT [facility] Name Value Range Interpretation Code Description Data Ekta rce(s) Supporting Document(s) CRP,Wide Range result <3.00 [facility] [address] [place] [address] Director: Sandra Zuñiga MD ID Date Data Source [id number] 06/05/2021 04:38:00 PM EDT [facility] Name Value Range Interpretation Code Description Data Ekta rce(s) Supporting Document(s) C-Reactive Protein,Wide Range <3.00 Above high normal [facility] Test Performed By: [facility] [address] [place] [address] Director: Sandra Zuñiga MD ID Date Data Source [id number] 06/05/2021 06:04:00 AM EDT [facility] Name: ANGELIA ARTHUR : 1965 Age/Sex: 55F Ordering Provider: Jessica Davila MD Med Rec #: [id number] Reg Status: DEP REF Room #: Date of Service: 06/04/21 Report Number: [id number] cc:Jessica Davila MD Send Report To: [id number] MRI/MRI C Spine No Contrast Reason for [...] Date/Time: 06/04/21 1441 Transcribed Date/Time: 06/05/21 0604 Associate Creative Director: MACHO Name Value Range Interpretation Code Description Data Ekta rce(s) Supporting Document(s) ID Date Data Source [id number] 05/27/2021 10:32:00 AM EDT [facility] Name Value Range Interpretation Code Description Data Ekta rce(s) Supporting Document(s) Respiratory specimen severe acute respir atory syndrome coronavirus 2 (SARS-CoV-2) RNA Negative (qualifier value) [place] [facility] This lab was ordered by [facility] and reported by . ID Date Data Source [id number] 05/29/2021 11:35:00 AM EDT [facility] Name Value Range Interpretation Code Description Data Ekta rce(s) Supporting Document(s) SARS-CoV-2 RNA INHOUSE Negative Normal (applies to non-n umeric results) [facility] THIS IS A STATE REPORTABLE COMMUNICABLE DISEASE. Testing was performed using the [employer]form[employer] COVID-19 MDx Assay. This test has been [...] be found at the following links: Providers: https://www.fda.gov/media/669120/download Patients : https://www.fda.gov/media/533099/download Negative results do not preclude SARS-CoV-2 infection and should not be used as the sole basis for patient management decisions. Negative results must be combined with clinical observations,patient history, and epidemiological information. ID Date Data Source [id number] 05/06/2021 05:11:00 PM EDT [facility] Name Value Range Interpretation Code Description Data Ekta rce(s) Supporting Document(s) CRP,Wide Range result <3.00 [facility] Test Performed By: [facility] [address] [place] [address] Director: Sandra Zuñiga MD ID Date Data Source [id number] 05/06/2021 04:35:00 PM EDT [facility] Name Value Range Interpretation Code Description Data Ekta rce(s) Supporting Document(s) C-Reactive Protein,Wide Range <3.00 Above high normal [facility] Test Performed By: [facility] [address] [place] [address] Director: Sandra Zuñiga MD ID Date Data Source [id number] 05/06/2021 02:38:00 PM EDT [facility] Name Value Range Interpretation Code Description Data Ekta rce(s) Supporting Document(s) Sodium 143 mmol/L 136-145 Normal (applies to non-numeric resul ts) [facility] Potassium 3.5-5.1 Normal (applies to non-numeric resul ts) [facility] Chloride 104 mmol/L 98-107 Normal (applies to non-numeric resul ts) [facility] Carbon Dioxide CO2 21-32 Normal (applies to non-numer ic results) [facility] Anion Gap 5.0-16.0 Normal (applies to non-numeric resul ts) [facility] BUN 17 mg/dL 7-18 Normal (applies to non-numeric results) [facility] Creatinine,Serum 0.7-1.2 Below low normal [facility] GFR >60 Normal (applies to non-numeric results) [facility] Glucose Level 80 mg/dL 60-99 Normal (applies to non-numeric re sults) [facility] Reference range is only applicable when patient is fasting Note the following drug interference: Sulfasalazine Sulfapyridine Can see falsely depressed Can see falsely elevated result with up to 17% results with up to 11% decrease in measurement increase in measurement Recommend patients be collected for this test prior to administration of either drug. Calcium 8.5-10.1 Normal (applies to non-numeric resul ts) [facility] Bilirubin,Total 0.1-1.9 Normal (applies to non-numeric results) [facility] SGOT(AST) 27 U/L 15-37 Normal (applies to non-numeric resul ts) [facility] Note the following drug interference: Sulfasalazine Sulfapyridine Can see falsely depressed Can see falsely elevated result with up to 10% results with up to 10% decrease in measurement increase in measurement Recommend patients be collected for this test prior to administration of either drug. SGPT(ALT) 46 U/L 12-78 Normal (applies to non-numeric resul ts) [facility] Note the following drug interference: Sulfasalazine Sulfapyridine Can see falsely depressed Can see falsely elevated result with up to 29% results with up to 10% decrease in measurement increase in measurement Recommend patients be collected for this test prior to administration of either drug. Alkaline Phosphatase 110 U/L 38-126 Normal (applies to non-num salome results) [facility] can increase Alkaline Phosp le vels up to 2 times the normal adult value. Normal values for children and adolescents are 2 to 3 times the normal adult value. Total Protein 6.0-8.2 Normal (applies to non-numeric re sults) [facility] Albumin Level 3.4-5.0 Normal (applies to non-numeric re sults) [facility] ID Date Data Source [id number] 05/06/2021 02:01:00 PM EDT [facility] Name Value Range Interpretation Code Description Data Ekta rce(s) Supporting Document(s) White Blood Count 3.5-10.5 Normal (applies to non-numeri c results) [facility] Red Blood Count 3.90-5.00 Normal (applies to non-numeric results) [facility] Hemoglobin 12.0-15.5 Normal (applies to non-numeric resul ts) [facility] Hematocrit 34.9-44.5 Normal (applies to non-numeric resul ts) [facility] Mean Corpuscular Volume 81.2-95.1 Normal (applies to non- numeric results) [facility] Mean Corpuscular Hgb 25.6-32.2 Normal (applies to non-num salome results) [facility] Mean Corpuscular Hgb Conc 32.0-36.0 Normal (applies to no n-numeric results) [facility] Red Cell Distribution Width 11.9-15.5 Normal (appli es to non-numeric results) [facility] Platelet Count 279 x10 3/uL 150-450 Normal (applies to non-numeric results) [facility] Mean Platelet Volume 9.4-12.4 Normal (applies to non-num salome results) [facility] Neutrophils% (Auto) 31.0-71.0 Normal (applies to non-nume yahir results) [facility] Lymphocytes% (Auto) 20.0-55.0 Normal (applies to non-nume yahir results) [facility] Monocytes% (Auto) 4.0-12.0 Normal (applies to non-numeri c results) [facility] Eosinophils% (Auto) 1.0-8.0 Normal (applies to non-nume yahir results) [facility] Basophils% (Auto) 0.0-2.0 Normal (applies to non-numeri c results) [facility] Immature Granulocytes% (Auto) 0.0-2.0 Normal (taiwo lies to non-numeric results) [facility] Neutrophils# (Auto) 1.50-6.20 Normal (applies to non-nume yahir results) [facility] Lymphocytes# (Auto) 1.20-4.00 Normal (applies to non-nume yahir results) [facility] Monocytes# (Auto) 0.00-0.90 Normal (applies to non-numeri c results) [facility] Eosinophils# (Auto) 0.00-0.50 Normal (applies to non-nume yahir results) [facility] Basophils# (Auto) 0.00-0.20 Normal (applies to non-numeri c results) [facility] Immature Granulocytes# (Auto) 0.00-7.00 No rmal (applies to non-numeric results) [facility] ID Date Data Source [id number] 05/06/2021 02:01:00 PM EDT [facility] Name Value Range Interpretation Code Description Data Ekta rce(s) Supporting Document(s) Erythrocyte Sedimentation rate 20 mm/hr 0-20 N ormal (applies to non-numeric results) [facility] ID Date Data Source [id number] 05/06/2021 12:03:00 PM EDT [facility] Imaging Services Department Imaging Report [address] [place] [address] Name: ANGELIA ARTHUR : 1965 Age/Sex: 55F Ordering Provider: [place] [facility] Rec #: [id number] Date of Service: 05/05/21 Report Number: [id number] cc: Valerie Tarango MD; [place] Gold Send Report To: [id number] MAMMOSCR/Screening Digtl Pura w Jim CAD Reason [...] DESCRIPTION: BENIGN. REPORT SIGNATURE ON FILE 05/06/21 5481 Reported By: Win Restrepo MD <Electronically signed by Patrick Restrepo MD>05/06/21 1200 Dictation Date/Time: 05/05/21 1027 Transcribed Date/Time: 05/06/21 1203 Associate Creative Director: MACHO Name Value Range Interpretation Code Description Data Ekta rce(s) Supporting Document(s) ID Date Data Source [id number] 05/06/2021 11:00:00 AM [facility] Imaging Services Department Imaging Report [address], [place] [address] %(RAD)RES..mtdd.print.filter("line") Name: ANGELIA ARTHUR : 1965 Age/Sex: 55F Ordering Provider: [facility] Rec #: [id number] Reg Status: DEP REF Room #: Date of Service: 05/05/21 Report Number: [id number] cc:Valerie Tarango MD; [facility] Send Report To: [id number] US/US Transvaginal Reason for exam: PMB FINDINGS: [...] Date/Time: 05/05/21 0942 Transcribed Date/Time: 05/06/21 1100 Associate Creative Director: RICARDO Name Value Range Interpretation Code Description Data Ekta rce(s) Supporting Document(s) ID Date Data Source [id number] 05/07/2021 10:06:00 AM [facility] Name Value Range Interpretation Code Description Data Ekta rce(s) Supporting Document(s) FibroTest Score Normal (applies to non-numeric results) [facility] FibroTest Stage Normal (applies to non-numeric results) [facility] FibroTest Interpretation Normal (applies to non -numeric results) [facility] FibroTest estimates liver fibrosis Fibr oTest Score Stage Interpretation 0.00-0.21 F0 no fibrosis 0.21-0.27 F0-F1 no fibrosis 0.27-0.31 F1 minimal fibrosis 0.31-0.48 F1-F2 minimal fibrosis 0.48-0.58 F2 moderate fibrosis 0.58-0.72 F3 advanced fibrosis 0.72-0.74 F3-F4 advanced fibrosis 0.74-1.00 F4 severe fibrosis (Cirrhosis) NashTest 2 Score Normal (applies to non-numeric results) [facility] NashTest 2 Grade Normal (applies to non-numeric results) [facility] NashTest 2 Interpretation Normal (applies to no n-numeric results) [facility] NashTest 2 estimates non-alcoholic steat ohepatitis (KARIMI) NashTest 2 Score Grade Interpretation 0.00-0.25 N0 no KARIMI 0.25-0.50 N1 mild KARIMI 0.50-0.75 N2 moderate KARIMI 0.75-1.00 N3 severe KARIMI SteatoTest 2 Score Normal (applies to non-numer ic results) [facility] SteatoTest 2 Grade Normal (applies to non-numer ic results) [facility] SteatoTest 2 Interpretation Normal (applies to non-numeric results) [facility] RESULT: moderate/severe steatosis (34-10 0%) SteatoTest 2 estimates liver steatosis. A stage of S1 or S2S3 is considered clinically significant. SteatoTest 2 Score Stage Interpretation 0.00-0.40 S0 no steatosis (<5%) 0.40-0.55 S1 mild steatosis (5-33%) 0.55-1.00 S2S3 moderate/severe steatosis (34-100%) KARIMI-FibroTest Comment Normal (applies to non-n umeric results) [facility] The reliability of results is dependent on compliance with the preanalytical and analytical conditions recommended by [facility]. The tests have to be deferred [...] by the U.S. Food and Drug Administration. [facility] Serial Number [id number] Normal (appli es to non-numeric results) [facility] Apolipoprotein A1,S 135 mg/dL >=140 Very abnormal (applie s to non-numeric units [facility] Hpzox-4-Gumdppwkklacq,S 184 mg/dL 100 - 280 Normal ( applies to non-numeric results) [facility] Haptoglobin,S 205 mg/dL 30 - 200 Very abnormal (applies to non-num salome units [facility] Alanine Amino (ALT),S 38 U/L 7-45 Normal (applies to non-nu meric results) [facility] Gamma Glutamyltrans (GGT),S 60 U/L 5 - 36 Very abnormal (applies to non-numeric units [facility] Total Bilirubin,S <=1.2 Normal (applies to non-numeri c results) [facility] Aspartate Aminotrans (AST),S 29 U/L 8 - 43 Nor mal (applies to non-numeric results) [facility] Total Cholesterol,S 226 mg/dL Very abnormal (applies to n on-numeric units [facility] REFERENCE VALUE------ Desirable: < 200 Borderline high: 200 - 239 High: > or = 240 Triglycerides,S 169 mg/dL Very abnormal (applies to non-n umeric units [facility] REFERENCE VALUE------ Normal: <150 Borderline high: 150-199 High: 200-499 Very high: > or =500 Fasting Glucose,Plas 120 mg/dL 70 - 100 Very abnorm al (applies to non-numeric units [facility] Test Performed by: [facility] [place] [id number] Return Clerk: Willi Rendon M.D. Ph.D.; CLIA# [id number] Test Performed by: [facility] [address] [place] [address] Return Clerk: Willi Rendon M.D. Ph.D.; CLIA# [id number] ID Date Data Source [id number] 05/07/2021 09:50:00 AM EDT [facility] Name Value Range Interpretation Code Description Data Ekta rce(s) Supporting Document(s) FibroTest Score Normal (applies to non-numeric results) [facility] FibroTest Stage Normal (applies to non-numeric results) [facility] FibroTest Interpretation Normal (applies to non -numeric results) [facility] FibroTest estimates liver fibrosis Fibr oTest Score Stage Interpretation 0.00-0.21 F0 no fibrosis 0.21-0.27 F0-F1 no fibrosis 0.27-0.31 F1 minimal fibrosis 0.31-0.48 F1-F2 minimal fibrosis 0.48-0.58 F2 moderate fibrosis 0.58-0.72 F3 advanced fibrosis 0.72-0.74 F3-F4 advanced fibrosis 0.74-1.00 F4 severe fibrosis (Cirrhosis) NashTest 2 Score Normal (applies to non-numeric results) [facility] NashTest 2 Grade Normal (applies to non-numeric results) [facility] NashTest 2 Interpretation Normal (applies to no n-numeric results) [facility] NashTest 2 estimates non-alcoholic steat ohepatitis (KARIMI) NashTest 2 Score Grade Interpretation 0.00-0.25 N0 no KARIMI 0.25-0.50 N1 mild KARIMI 0.50-0.75 N2 moderate KARIMI 0.75-1.00 N3 severe KARIMI SteatoTest 2 Score Normal (applies to non-numer ic results) [facility] SteatoTest 2 Grade Normal (applies to non-numer ic results) [facility] SteatoTest 2 Interpretation Normal (applies to non-numeric results) [facility] RESULT: moderate/severe steatosis (34-10 0%) SteatoTest 2 estimates liver steatosis. A stage of S1 or S2S3 is considered clinically significant. SteatoTest 2 Score Stage Interpretation 0.00-0.40 S0 no steatosis (<5%) 0.40-0.55 S1 mild steatosis (5-33%) 0.55-1.00 S2S3 moderate/severe steatosis (34-100%) KARIMI-FibroTest Comment Normal (applies to non-n umeric results) [facility] The reliability of results is dependent on [...] by the U.S. Food and Drug Administration. [facility] Serial Number [id number] Normal (appli es to non-numeric results) [facility] Apolipoprotein A1,S 135 mg/dL >=[address] [facility] Xkqbk-5-Rxsspkctrlxgr,S 184 mg/dL 100 - 280 Normal ( applies to non-numeric results) [facility] Haptoglobin,S 205 mg/dL 30 - 200 [facility] Alanine Amino (ALT),S 38 U/L 7-45 Normal (applies to non-nu meric results) [facility] Gamma Glutamyltrans (GGT),S 60 U/L 5 - 36 [facility] Total Bilirubin,S <=1.2 Normal (applies to non-numeri c results) [facility] Aspartate Aminotrans (AST),S 29 U/L 8 - 43 Nor mal (applies to non-numeric results) [facility] Total Cholesterol,S 226 mg/dL [facility] REFERENCE VALUE------ Desirable: < 200 Borderline high: 200 - 239 High: > or = 240 Triglycerides,S 169 mg/dL [facility] REFERENCE VALUE------ Normal: <150 Borderline high: 150-199 High: 200-499 Very high: > or =500 Fasting Glucose,Plas 120 mg/dL 70 - 100 [facility] Test Performed by: [place] [address] Return Clerk: Willi Rendon M.D. Ph.D.; CLIA# [id number] Test Performed by: [facility] [address] [place] [address] Return Clerk: Willi Rendon M.D. Ph.D.; CLIA# [id number] ID Date Data Source [id number] 05/05/2021 05:00:00 PM EDT [facility] Name Value Range Interpretation Code Description Data Ekta rce(s) Supporting Document(s) Bilirubin,Total 0.1-1.9 Normal (applies to non-numeric results) [facility] Bilirubin,Direct 0.05-0.20 Normal (applies to non-numeric results) [facility] SGOT(AST) 27 U/L 15-37 Normal (applies to non-numeric resul ts) [facility] Note the following drug interference: Sulfasalazine Sulfapyridine Can see falsely depressed Can see falsely elevated result with up to 10% results with up to 10% decrease in measurement increase in measurement Recommend patients be collected for this test prior to administration of either drug. SGPT(ALT) 49 U/L 12-78 Normal (applies to non-numeric resul ts) [facility] Note the following drug interference: Sulfasalazine Sulfapyridine Can see falsely depressed Can see falsely elevated result with up to 29% results with up to 10% decrease in measurement increase in measurement Recommend patients be collected for this test prior to administration of either drug. Alkaline Phosphatase 103 U/L 38-126 Normal (applies to non-num salome results) [facility] can increase Alkaline Phosp le vels up to 2 times the normal adult value. Normal values for children and adolescents are 2 to 3 times the normal adult value. Total Protein 6.0-8.2 Normal (applies to non-numeric re sults) [facility] Albumin Level 3.4-5.0 Normal (applies to non-numeric re sults) [facility] ID Date Data Source [id number] 04/22/2021 05:47:00 PM EDT [facility] Name Value Range Interpretation Code Description Data Ekta rce(s) Supporting Document(s) Iron FE Level 61 ug/dL 37-170 Normal (applies to non-numeric re sults) [facility] Total Iron Binding Capacity 365 ug/dL 265-497 Norm al (applies to non-numeric results) [facility] %Iron Saturation 12.0-55.0 Normal (applies to non-numeric results) [facility] ID Date Data Source [id number] 04/22/2021 03:49:00 PM EDT [facility] Name Value Range Interpretation Code Description Data Ekta rce(s) Supporting Document(s) White Blood Count 4.8-10.8 Above high normal [facility] Red Blood Count 3.68-5.22 Normal (applies to non-numeric results) [facility] Hemoglobin 11.2-15.7 Normal (applies to non-numeric resul ts) [facility] Hematocrit 34.1-44.9 Normal (applies to non-numeric resul ts) [facility] Mean Corpuscular Volume 81-99 Normal (applies to non- numeric results) [facility] Mean Corpuscular Hemoglobin 27.0-33.0 Normal (appli es to non-numeric results) [facility] Mean Corpuscular HGB Conc 32.0-36.0 Normal (applies to no n-numeric results) [facility] Red Cell Distribution Width 11.5-14.5 Normal (appli es to non-numeric results) [facility] Platelet Count 303 X10 3/uL 130-450 Normal (applies to non-numeric results) [facility] Mean Platelet Volume 9.5-12.7 Normal (applies to non-num salome results) [facility] Imm Grans% (AUTO) 1 % 0-2 Normal (applies to non-numeri c results) [facility] Neutrophils % (AUTO) 65 % 40-75 Normal (applies to non-num salome results) [facility] Lymphocytes % (AUTO) 25 % 21-46 Normal (applies to non-num salome results) [facility] Monocytes % (AUTO) 7 % 5-12 Normal (applies to non-numer ic results) [facility] Eosinophils % (AUTO) 2 % 1-5 Normal (applies to non-num salome results) [facility] Basophils % (AUTO) 0 % 0-1 Normal (applies to non-numer ic results) [facility] Imm Grans# (AUTO) 0.0-0.5 Normal (applies to non-numeri c results) [facility] Neutrophils # (AUTO) 1.5-8.1 Normal (applies to non-num salome results) [facility] Lymphocytes # (AUTO) 1.0-3.1 Normal (applies to non-num salome results) [facility] Monocytes # (AUTO) 0.2-1.3 Normal (applies to non-numer ic results) [facility] Eosinophils# (AUTO) 0.0-0.5 Normal (applies to non-nume yahir results) [facility] Basophils # (AUTO) 0.0-0.1 Normal (applies to non-numer ic results) [facility] ID Date Data Source [id number] 04/22/2021 01:15:00 PM EDT [facility] Name Value Range Interpretation Code Description Data Ekta rce(s) Supporting Document(s) Respiratory specimen severe acute respir atory syndrome coronavirus 2 (SARS-CoV-2) RNA Negative (qualifier value) [facility] This lab was ordered by [facility] layne and reported by [facility]. ID Date Data Source [id number] 04/23/2021 01:50:00 AM EDT [facility] COVID-19 Specimen Source NASOPHARYNGEAL Testing was performed using the [employer] SARS-CoV-2 Assay (M Lite Solution) Methodology: Nucleic Acid Amplification Executive Manager RT-PCR Mediated Amplification (TMA) and Dual Kinetic [...] following links EUA Fact Sheet for Providers: https://www.fda.gov/media/279757/download EUA Fact Sheet for Patients: https://www.fda.gov/media/781800/download THIS IS A STATE REPORTABLE COMMUNICABLE DISEASE. Test Performed By: [facility] [address] [place] [address] Director: Sandra Zuñiga MD Name Value Range Interpretation Code Description Data Ekta rce(s) Supporting Document(s) ID Date Data Source [id number] 04/24/2021 08:42:00 AM EDT [facility] No Group A beta hemolytic streptococcus at 24 hours. Pre-report pending 48 hour incubation. Name Value Range Interpretation Code Description Data Ekta rce(s) Supporting Document(s) Group A Culture [facility] ID Date Data Source [id number] 04/22/2021 12:46:00 PM EDT [facility] MAIL ORDER BILLER TEST TO BE ORDERED: PAP and HPV (HR )LAST MENSTRUAL PERIOD 2017SOURCE OF SPECIMEN Endo/ExocxCLINICAL FINDINGS normal examOTHER FINDINGS (free text) cervical polypCLINICAL DIAGNOSIS Screening, low risk (cx) Name Value Range Interpretation Code Description Data Ekta rce(s) Supporting Document(s) Cytology Order MAIL ORDER BILLER Pap result LAB SendOut No rmal (applies to non-numeric results) [facility] ID Date Data Source [id number] 04/19/2021 02:52:00 AM EDT [facility] Name Value Range Interpretation Code Description Data Ekta rce(s) Supporting Document(s) HPV Detection,High Risk result Negative N ormal (applies to non-numeric results) [facility] Test Performed By: [facility] [address] [place] [address] Director: Sandra Zuñiga MD . No E6 or E7 mRNA is detected from HPV types 16,18,31,33,35,39,45,51,52,56,58,59,66, and 68 by nucleic acid amplification. ID Date Data Source [id number] 04/18/2021 04:38:00 PM EDT [facility] Name Value Range Interpretation Code Description Data Ekta rce(s) Supporting Document(s) HPV Detection,High Risk Types Negative No rmal (applies to non-numeric results) [facility] Test Performed By: [facility] [address] [place] [address] Director: Sandra Zuñiga MD . No E6 or E7 mRNA is detected from HPV types 16,18,31,33,35,39,45,51,52,56,58,59,66, and 68 by nucleic acid amplification. ID Date Data Source [id number] 04/22/2021 12:25:00 PM EDT [facility] <Findings Not Available> Name Value Range Interpretation Code Description Data Ekta rce(s) Supporting Document(s) ID Date Data Source [id number] 04/11/2021 01:23:00 PM EDT [facility] Name: ANGELIA ARTHUR [facility] Rec #: [id number] : 1965 Age/Sex: 55F Date of Service: 04/11/21 DISPOSITION SUMMARY Discharge Summary [facility] Name:nAgelia Arthur Emergency Department Age:55 yrs Sex:Female :1965 [...] rce(s) Supporting Document(s) ID Date Data Source [id number] [facility]/11[facility]2021 [facility]23[facility] Med Rec #: [id number] : 1965 Age/Sex: 55F Date of Service: 04/11/21 PHYSICIAN CHART Physician Documentation [facility] Name: Angelia Arthur Age: 55 yrs [...] to communication noted, The patient speaks fluent Kazakh. ROS: 14:07 Eyes: Negative for injury, pain, [...] 160.02 cm) MDM: 13:46 Patient medically screened. [facility] 14:08 Data reviewed: vital signs, nurses notes. ED course: EKG [facility] demonstrates normal sinus rhythm without any [...] CRP - Wide Range; Complete Time: 14:47 [facility] 04/11 14:47 Interpretation: Within normal limits: CRP-wr 11.50. [facility] 04/11 13:55 Order name: Cbc With Auto Differential; Complete Time: 14:47jdl 04/11 14:47 Interpretation: WBC 12.7; HGB 13.1; HCT 37.0; PLT 284. [facility] 04/11 13:55 Order name: Comprehensive Metabolic Prof.; Complete Time: jdl 14:47 04/11 13:55 Order name: Lipase; Complete Time: 14:47 j 04/11 13:55 Order name: UA.; Complete Time: 15:32 [facility] 04/11 15:32 Interpretation: Within normal limits: Ur Color Yellow; Ur jdl Clarity Clear; Ur Spec gravity 1.011; Ur PH 6.5; Ur Protein Negative; Ur Glucose Negative; Ur Ketones Negative; Ur Blood Negative; Ur Bilirubin Negative; Ur Urobilinogen 0.2; Ur Leuk Est Negative; Ur Nitrite Negative. 07 13:55 Order name: Troponin I; Complete Time: 14:52 [facility] 04/11 14:52 Interpretation: Within normal limits: TROP I < 0.045. [facility] 04/11 13:55 Order name: Us Gall Bladder Study [facility] 04/11 13:55 Order name: Emergency Room EKG Order - Use EKG Work-Up [facility] /Quick Select; Complete Time: 14:01 04/11 13:55 Order name: Cardiology EKG Interpretation - Choose Reason [facility] for Test 04/11 13:55 Order name: Collect Urine - Clean Catch; Complete Time: jdl 15:25 04/11 13:55 Order name: Iv Saline Lock; Complete Time: 14:29 [facility] 04/11 13:55 Order name: NPO; Complete Time: 14:29 [facility] Dispensed Medications: 14:23 Drug: Protonix 40 [...] solution (0.5 mL)] Route: IVP; Site: [facility] - left; 15:25 Follow up: Response: No [...] Route: IV; Rate: per protocol; Site: [facility] - left; 15:57 Follow up: IV Status: [...] rce(s) Supporting Document(s) ID Date Data Source [id number] 04/11/2021 01:23:00 PM EDT [facility] Name: ANGELIA ARTHUR [facility] Rec #: [id number] : 1965 Age/Sex: 55F Date of Service: 04/11/21 NURSE CHART Nurse's Notes [facility] Name: Angelia Arthur Age: 55 yrs Sex: Female : 1965 Arrival Date: 04/11/2021 Time: 13:23 Bed 9 Private MD: Valerie Tarango L Diagnosis: Epigastric pain Inbound Details: Referred by: [facility]gent [facility], [place] Arriving by: Walk-In ETA: Who will see [...] to communication noted, The patient speaks fluent Kazakh. Screenin:54 AUDIT 1. How often do you [...] [place], RN is Primary Nurse. meb 13:50 color television console monitor on. Pulse on is on. NIBP [...] Name Value Range Interpretation Code Description [facility] Supporting Document(s) ID Date Data Source [id number] 04/11/2021 03:31:00 PM EDT [facility] Name Value Range Interpretation Code Description Data [facility](s) Supporting Document(s) Color,Urine Yellow Normal (applies to non-numeric resu lts) [facility] Clarity,Urine Clear Normal (applies to non-numeric re sults) [facility] Specific [place],Urine 1.001-1.030 Normal (applies to non- numeric results) [facility] PH,Urine 5.0-8.0 Normal (applies to non-numeric resul ts) [facility] Protein,Urine Negative Normal (applies to non-numeric re sults) [facility] Glucose,Urine (UA) Negative Normal (applies to non-numer ic results) [facility] Ketones,Urine Negative Normal (applies to non-numeric re sults) [facility] Blood,Urine Negative Normal (applies to non-numeric resu lts) [facility] Bilirubin,Urine Negative Normal (applies to non-numeric results) [facility] Urobilinogen,Urine Norm 0.2-1 Normal (applies to non-numer ic results) [facility] Leukocyte Esterase,Urine Negative Normal (applies to non -numeric results) [facility] Nitrite,Urine Negative Normal (applies to non-numeric re sults) [facility] ID Date Data Source [id number] 04/11/2021 02:48:00 PM EDT [facility] Name Value Range Interpretation Code Description Data Ekta rce(s) Supporting Document(s) Troponin I 0.000-0.045 Normal (applies to non-numeric resu lts) [facility] ID Date Data Source [id number] 04/11/2021 02:43:00 PM EDT [facility] Name Value Range Interpretation Code Description Data Ekta rce(s) Supporting Document(s) C-Reactive Protein,Wide Range <3.00 Above high normal [facility] ID Date Data Source [id number] 04/11/2021 02:43:00 PM EDT [facility] Name Value Range Interpretation Code Description Data Ekta rce(s) Supporting Document(s) Sodium 141 mmol/L 137-145 Normal (applies to non-numeric resul ts) [facility] Potassium 3.5-5.1 Normal (applies to non-numeric resul ts) [facility] Chloride 109 mmol/L 98-112 Normal (applies to non-numeric resul ts) [facility] Carbon Dioxide CO2 22.0-33.0 Normal (applies to non-numer ic results) [facility] Anion Gap 4.0-11.0 Normal (applies to non-numeric resul ts) [facility] BUN 15 mg/dL 7-17 Normal (applies to non-numeric resul ts) [facility] Creatinine 0.70-1.20 Below low normal [facility] GFR >60 Normal (applies to non-numeric results) [facility] Result based on MDRD formula. Glucose Level 75 mg/dL 74-99 Normal (applies to non-numeric re sults) [facility] The reference range is only applicable w hen fasting. Calcium-Uncorrected 8.4-10.2 Normal (applies to non-nume yahir results) [facility] Corrected Calcium 8.4-10.2 Normal (applies to non-numeri c results) [facility] Bilirubin,Total 0.2-1.3 Normal (applies to non-numeric results) [facility] SGOT(AST) 23 U/L 14-36 Normal (applies to non-numeric resul ts) [facility] SGPT(ALT) 46 U/L 9-52 Normal (applies to non-numeric resul ts) [facility] Alkaline Phosphatase 123 U/L 38-126 Normal (applies to non-num salome results) [facility] can increase Alkaline Phosp le vels up to 2 times the normal adult value. Normal values for children and adolescents are 2 to 3 times the normal adult value. Total Protein 6.3-8.2 Normal (applies to non-numeric re sults) [facility] Albumin 3.5-5.0 Normal (applies to non-numeric resul ts) [facility] ID Date Data Source [id number] 04/11/2021 02:43:00 PM EDT [facility] Name Value Range Interpretation Code Description Data Ekta rce(s) Supporting Document(s) Lipase 111 U/L 73-393 Normal (applies to non-numeric resul ts) [facility] ID Date Data Source [id number] 04/11/2021 02:31:00 PM EDT [facility] Name Value Range Interpretation Code Description Data Ekta rce(s) Supporting Document(s) White Blood Count 4.8-10.8 Above high normal [facility] Red Blood Count 3.68-5.22 Normal (applies to non-numeric results) [facility] Hemoglobin 11.2-15.7 Normal (applies to non-numeric resul ts) [facility] Hematocrit 34.1-44.9 Normal (applies to non-numeric resul ts) [facility] Mean Corpuscular Volume 81-99 Normal (applies to non- numeric results) [facility] Mean Corpuscular Hemoglobin 27.0-33.0 Normal (appli es to non-numeric results) [facility] Mean Corpuscular HGB Conc 32.0-36.0 Normal (applies to no n-numeric results) [facility] Red Cell Distribution Width 11.5-14.5 Normal (appli es to non-numeric results) [facility] Platelet Count 284 X10 3/uL 130-450 Normal (applies to non-numeric results) [facility] Mean Platelet Volume 9.5-12.7 Normal (applies to non-num salome results) [facility] Imm Grans% (AUTO) 1 % 0-2 Normal (applies to non-numeri c results) [facility] Neutrophils % (AUTO) 60 % 40-75 Normal (applies to non-num salome results) [facility] Lymphocytes % (AUTO) 30 % 21-46 Normal (applies to non-num salome results) [facility] Monocytes % (AUTO) 8 % 5-12 Normal (applies to non-numer ic results) [facility] Eosinophils % (AUTO) 1 % 1-5 Normal (applies to non-num salome results) [facility] Basophils % (AUTO) 0 % 0-1 Normal (applies to non-numer ic results) [facility] Imm Grans# (AUTO) 0.0-0.5 Normal (applies to non-numeri c results) [facility] Neutrophils # (AUTO) 1.5-8.1 Normal (applies to non-num salome results) [facility] Lymphocytes # (AUTO) 1.0-3.1 Above high normal [facility] Monocytes # (AUTO) 0.2-1.3 Normal (applies to non-numer ic results) [facility] Eosinophils# (AUTO) 0.0-0.5 Normal (applies to non-nume yahir results) [facility] Basophils # (AUTO) 0.0-0.1 Normal (applies to non-numer ic results) [facility] ID Date Data Source [id number] 04/16/2021 07:28:00 PM EDT [facility] Name: ANGELIA ARTHUR : 1965 Age/Sex: 55F Ordering Provider: Eros Oakley MD Med Rec #: [id number] Reg Status:DEP ER Room #: Date of Service: 04/11/21 Report Number: [id number] cc: Valerie Tarango MD; Eros Oakley MD Send Report To: Reason for exam: ABDOMINAL PAIN SINUS RHYTHM NORMAL ECG Physician Blow Torch Operator: Dr. Wei Castillo M.D. ECG HEART RATE: 85 /min ECG RR INTERVAL: 702 ms ECG P DURATION: 113 ms ECG QRS DURATION: 86 ms ECG ME INTERVAL: 162 ms ECG QT INTERVAL: 354 ms ECG QTC INTERVAL: 397 ms Q-T dispersion: ms ECG P AXIS: 45 deg ECG QRS AXIS: 46 deg ECG T AXIS: 51 deg REPORT SIGNATURE ON FILE 04/16/211927 Reported By: Wei Castillo MD <<Signature on File>> Exam Date/Time: 04/11/21 1400 Order #: [id number] Dictation Date/Time: 04/16/211927 Transcribed Date/Time: 04/16/211927 Associate Creative Director: IATRICS Name Value Range Interpretation Code Description Data Ekta rce(s) Supporting Document(s) ID Date Data Source [id number] 04/13/2021 05:34:00 AM EDT [facility] Name: ANGELIA ARTHUR : 1965 Age/Sex: 55F Ordering Provider: Eros Oakley MD Med Rec #: [id number] Reg Status: DEP ER Room #: Date of Service: 04/11/21 Report Number: [id number] cc:Valerie Tarango MD; Eros Oakley MD Send Report To: [id number] US/US Gall Bladder Study Reason for exam: [...] Date/Time: 04/11/21 1448 Transcribed Date/Time: 04/13/21 0534 Associate Creative Director: DANIEL Name Value Range Interpretation Code Description Data Ekta rce(s) Supporting Document(s) ID Date Data Source [id number] 03/28/2021 07:53:00 PM EDT [facility] Name Value Range Interpretation Code Description Data Ekta rce(s) Supporting Document(s) CRP,Wide Range result <3.00 Anglin [facility] Test Performed By: [facility] [address] [place] [address] Director: Sandra Zuñiga MD ID Date Data Source [id number] 03/28/2021 05:35:00 PM EDT [facility] Name Value Range Interpretation Code Description Data Ekta rce(s) Supporting Document(s) C-Reactive Protein,Wide Range <3.00 Above high normal [facility] Test Performed By: [facility] [address] [place] [address] Director: Sandra Zuñiga MD ID Date Data Source [id number] 03/28/2021 02:27:00 PM EDT [facility] Name Value Range Interpretation Code Description Data Ekta rce(s) Supporting Document(s) Sodium 141 mmol/L 136-145 Normal (applies to non-numeric resul ts) [facility] Potassium 3.5-5.1 Normal (applies to non-numeric resul ts) [facility] Chloride 104 mmol/L 98-107 Normal (applies to non-numeric resul ts) [facility] Carbon Dioxide CO2 21-32 Normal (applies to non-numer ic results) [facility] Anion Gap 5.0-16.0 Normal (applies to non-numeric resul ts) [facility] BUN 18 mg/dL 7-18 Normal (applies to non-numeric results) [facility] Creatinine,Serum 0.7-1.2 Below low normal [facility] GFR >60 Normal (applies to non-numeric results) [facility] Glucose Level 87 mg/dL 60-99 Normal (applies to non-numeric re sults) [facility] Reference range is only applicable when patient is fasting Note the following drug interference: Sulfasalazine Sulfapyridine Can see falsely depressed Can see falsely elevated result with up to 17% results with up to 11% decrease in measurement increase in measurement Recommend patients be collected for this test prior to administration of either drug. Calcium 8.5-10.1 Normal (applies to non-numeric resul ts) [facility] Bilirubin,Total 0.1-1.9 Normal (applies to non-numeric results) [facility] SGOT(AST) 30 U/L 15-37 Normal (applies to non-numeric resul ts) [facility] Note the following drug interference: Sulfasalazine Sulfapyridine Can see falsely depressed Can see falsely elevated result with up to 10% results with up to 10% decrease in measurement increase in measurement Recommend patients be collected for this test prior to administration of either drug. SGPT(ALT) 52 U/L 12-78 Normal (applies to non-numeric resul ts) [facility] Note the following drug interference: Sulfasalazine Sulfapyridine Can see falsely depressed Can see falsely elevated result with up to 29% results with up to 10% decrease in measurement increase in measurement Recommend patients be collected for this test prior to administration of either drug. Alkaline Phosphatase 118 U/L 38-126 Normal (applies to non-num salome results) [facility] can increase Alkaline Phosp le vels up to 2 times the normal adult value. Normal values for children and adolescents are 2 to 3 times the normal adult value. Total Protein 6.0-8.2 Normal (applies to non-numeric re sults) [facility] Albumin Level 3.4-5.0 Normal (applies to non-numeric re sults) [facility] ID Date Data Source [id number] 03/28/2021 02:05:00 PM EDT [facility] Name Value Range Interpretation Code Description Data Ekta rce(s) Supporting Document(s) White Blood Count 3.5-10.5 Normal (applies to non-numeri c results) [facility] Red Blood Count 3.90-5.00 Normal (applies to non-numeric results) [facility] Hemoglobin 12.0-15.5 Normal (applies to non-numeric resul ts) [facility] Hematocrit 34.9-44.5 Normal (applies to non-numeric resul ts) [facility] Mean Corpuscular Volume 81.2-95.1 Normal (applies to non- numeric results) [facility] Mean Corpuscular Hgb 25.6-32.2 Normal (applies to non-num salome results) [facility] Mean Corpuscular Hgb Conc 32.0-36.0 Normal (applies to no n-numeric results) [facility] Red Cell Distribution Width 11.9-15.5 Normal (appli es to non-numeric results) [facility] Platelet Count 289 x10 3/uL 150-450 Normal (applies to non-numeric results) [facility] Mean Platelet Volume 9.4-12.4 Normal (applies to non-num salome results) [facility] Neutrophils% (Auto) 31.0-71.0 Normal (applies to non-nume yahir results) [facility] Lymphocytes% (Auto) 20.0-55.0 Normal (applies to non-nume yahir results) [facility] Monocytes% (Auto) 4.0-12.0 Normal (applies to non-numeri c results) [facility] Eosinophils% (Auto) 1.0-8.0 Normal (applies to non-nume yahir results) [facility] Basophils% (Auto) 0.0-2.0 Normal (applies to non-numeri c results) [facility] Immature Granulocytes% (Auto) 0.0-2.0 Normal (taiwo lies to non-numeric results) [facility] Neutrophils# (Auto) 1.50-6.20 Normal (applies to non-nume yahir results) [facility] Lymphocytes# (Auto) 1.20-4.00 Normal (applies to non-nume yahir results) [facility] Monocytes# (Auto) 0.00-0.90 Normal (applies to non-numeri c results) [facility] Eosinophils# (Auto) 0.00-0.50 Normal (applies to non-nume yahir results) [facility] Basophils# (Auto) 0.00-0.20 Normal (applies to non-numeri c results) [facility] Immature Granulocytes# (Auto) 0.00-7.00 No rmal (applies to non-numeric results) [facility] ID Date Data Source [id number] 03/28/2021 02:05:00 PM EDT [facility] Name Value Range Interpretation Code Description Data Ekta rce(s) Supporting Document(s) Erythrocyte Sedimentation rate 20 mm/hr 0-20 N ormal (applies to non-numeric results) [facility] ID Date Data Source [id number] 03/26/2021 09:32:00 AM EDT [facility] spital Procedure Performed By: [facility] [address] [place] [address] Director: Asuncion Zuñiga MD Mixed kirill: Mixed kirill, probable contamination. Name Value Range Interpretation Code Description Data [facility] rce(s) Supporting Document(s) ID Date Data Source [id number] 03/26/2021 09:28:00 AM EDT [facility] Procedure Performed By: [facility] [address] [place] [address] Director: Asuncion Zuñiga MD Name Value Range Interpretation Code Description Data [facility] rce(s) Supporting Document(s) Urine Culture Normal (applies to non-numeric re sults) [facility] ID Date Data Source [id number] 03/25/2021 09:22:00 AM EDT [facility] Name Value Range Interpretation Code Description Data [facility] rce(s) Supporting Document(s) Color,Urine Colorl-Dk Y Normal (applies to non-numeric res ults) [facility] Clarity,Urine Clear Normal (applies to non-numeric re sults) [facility] Specific [place],Urine 1.005-1.030 Normal (applies to non- numeric results) [facility] pH,Urine 5.0-8.0 Normal (applies to non-numeric resul ts) [facility] Protein,Urine Negative Normal (applies to non-numeric re sults) [facility] Glucose,Urine Negative Normal (applies to non-numeric re sults) [facility] Ketones,Urine Negative Normal (applies to non-numeric re sults) [facility] Blood,Urine Negative [facility] Bilirubin,Urine Negative Normal (applies to non-numeric results) [facility] Urobilinogen,Urine 0.2-1.0 Normal (applies to non-numer ic results) [facility] Leukocyte Esterase,Urine Negative Normal (applies to non -numeric results) [facility] Nitrite,Urine Negative Normal (applies to non-numeric re sults) [facility] RBC,Urine None Seen [facility] WBC,Urine None Seen [facility] Casts,Urine None Seen Normal (applies to non-numeric resu lts) [facility] Squamous Cells,Urine None Seen [facility] Bacteria,Urine None Seen [facility] ital Mucus,Urine None Seen [facility] l ID Date Data Source [id number] 03/07/2021 11:01:00 AM EDT [facility] Name: ANGELIA ARTHUR [facility] Rec #: [id number] : 1965 Age/Sex: 55F Date of Service: 03/07/21 PHYSICIAN CHART Physician Documentation [facility] Name: Angelia Arthur Age: 55 yrs [...] months, she is not currently on anticoagulation.. FINISH OPENER: 11:07 LMP N/A - Post-menopause edv Historical: [...] to communication noted, The patient speaks fluent Kazakh. ROS: 11:34 Cardiovascular: Positive for palpitations. Respiratory: [...] CXR - Lauro FITZPATRICK Michael // Radiologist [facility] mmo - 03/07/2021 11:59:50 AM [...] and she did receive 4 mg of [place] here in the emergency department. She stated [...] is 98 beats/min. Rhythm is regular. QRS [place] is mmo Normal. ME interval is normal at 153 msec. QRS [...] - Discharge Summary Sheet mmo - Palpitations, Nvlk-ba-Oakb mmo Forms: - Medication Reconciliation mmo Signatures: Dispatcher [employer] Paco Isidro, RN RN edv Roosevelt Ritchie DO DO rc3 Angelia Bucio NA NA jmg Paige, Rachel, RN RN rp1 Galina Dinh PA PA mmo Name Value Range Interpretation Code Description Data Ekta rce(s) Supporting Document(s) ID Date Data Source [id number] 03/07/2021 11:01:00 AM EDT [facility] Name: PALUANGELIA [facility] Rec #: [id number] : 1965 Age/Sex: 55F Date of Service: 03/07/21 DISPOSITION SUMMARY Discharge Summary [facility] Name:Angelia Arthur Emergency Department Age:55 yrs [...] (PF) Discharge Instruction: Discharge Summary Sheet, Palpitations, Qbmb-qy-Babl, Medication Reconciliation Name Value Range Interpretation Code Description Data Ekta rce(s) Supporting Document(s) ID Date Data Source [id number] 03/07/2021 11:01:00 AM EDT [facility] Name: ANGELIA ARTHUR Med Rec #: [id number] : 1965 Age/Sex: 55F Date of Service: 03/07/21 NURSE CHART Nurse's Notes [facility] Name: Angelia Arthur Age: 55 yrs [...] SIRS or Sepsis criteria is not present. FINISH OPENER: 11:07 LMP N/A - Post- menopause edv [...] to communication noted, The patient speaks fluent Kazakh. Screenin:42 AUDIT 1. How often do you [...] NA jmg Paige, Rachel, RN RN rp1 FillmoreGalina Jewell PA PA mmo Abimbola Lanier cc4 Name Value Range Interpretation Code Description Data Ekta rce(s) Supporting Document(s) ID Date Data Source [id number] 03/12/2021 02:02:00 PM EDT [facility] Name Value Range Interpretation Code Description Data Ekta rce(s) Supporting Document(s) Blood Culture-Venous [facility] ID Date Data Source [id number] 03/12/2021 02:02:00 PM EDT [facility] Name Value Range Interpretation Code Description Data Ekta rce(s) Supporting Document(s) Blood Culture-Venous [facility] ID Date Data Source [id number] 03/07/2021 02:12:00 PM EDT [facility] 3 hour post Lactic if elevated? Y Name Value Range Interpretation Code Description Data Ekta rce(s) Supporting Document(s) Lactic Acid 0.4-2.0 Normal (applies to non-numeric resu lts) [facility] ID Date Data Source [id number] 03/07/2021 01:43:00 PM EDT [facility] Name Value Range Interpretation Code Description Data Ekta rce(s) Supporting Document(s) Sodium 141 mmol/L 137-145 Normal (applies to non-numeric resul ts) [facility] Potassium 3.5-5.1 Normal (applies to non-numeric resul ts) [facility] Chloride 107 mmol/L 98-112 Normal (applies to non-numeric resul ts) [facility] Carbon Dioxide CO2 22.0-33.0 Normal (applies to non-numer ic results) [facility] Anion Gap 4.0-11.0 Below low normal [facility] BUN 14 mg/dL 7-17 Normal (applies to non-numeric resul ts) [facility] Creatinine 0.70-1.20 Below low normal [facility] GFR >60 Normal (applies to non-numeric results) [facility] Result based on MDRD formula. Glucose Level 93 mg/dL 74-99 Normal (applies to non-numeric re sults) [facility] The reference range is only applicable w hen fasting. Calcium-Uncorrected 8.4-10.2 Normal (applies to non-nume yahir results) [facility] Corrected Calcium 8.4-10.2 Normal (applies to non-numeri c results) [facility] Bilirubin,Total 0.2-1.3 Normal (applies to non-numeric results) [facility] SGOT(AST) 22 U/L 14-36 Normal (applies to non-numeric resul ts) [facility] SGPT(ALT) 43 U/L 9-52 Normal (applies to non-numeric resul ts) [facility] Alkaline Phosphatase 119 U/L 38-126 Normal (applies to non-num salome results) [facility] can increase Alkaline Phosp le vels up to 2 times the normal adult value. Normal values for children and adolescents are 2 to 3 times the normal adult value. Total Protein 6.3-8.2 Normal (applies to non-numeric re sults) [facility] Albumin 3.5-5.0 Normal (applies to non-numeric resul ts) [facility] ID Date Data Source [id number] 03/07/2021 01:44:00 PM EDT [facility] Name Value Range Interpretation Code Description Data Ekta rce(s) Supporting Document(s) Magnesium 1.80-2.40 Normal (applies to non-numeric resul ts) [facility] ID Date Data Source [id number] 03/07/2021 01:44:00 PM EDT [facility] Value Range Interpretation Code Description Data Ekta rce(s) Supporting Document(s) Lipase 102 U/L 73-393 Normal (applies to non-numeric resul ts) [facility] ID Date Data Source [id number] 03/07/2021 01:44:00 PM EDT [facility] Value Range Interpretation Code Description Data Ekta rce(s) Supporting Document(s) Free T4 (Free Thyroxine) 0.76-1.46 Normal (applies to non -numeric results) [facility] ID Date Data Source [id number] 03/07/2021 01:44:00 PM EDT [facility] Value Range Interpretation Code Description Data Ekta rce(s) Supporting Document(s) Thyroid Stimulate Hormone TSH 0.358-3.740 No rmal (applies to non-numeric results) [facility] ID Date Data Source [id number] 03/07/2021 01:19:00 PM EDT [facility] Value Range Interpretation Code Description Data Ekta rce(s) Supporting Document(s) Troponin I 0.000-0.045 Normal (applies to non-numeric resu lts) [facility] ID Date Data Source [id number] 03/07/2021 01:12:00 PM EDT [facility] Value Range Interpretation Code Description Data Ekta rce(s) Supporting Document(s) D-Dimer Quant 444 ng/mLFEU <500 Normal (applies to non-numeric results) [facility] Negative for D-Dimer. This test has f ull FDA exclusion claim at a Negative cutoff value of 500 ng/mL FEU. When the d-dimer value is used in conjunction with the clinical pretest probability (PTP) assessment model to exclude DVT and PE, results less than 500 ng/mL are negative for DVT/PE. ID Date Data Source [id number] 03/07/2021 01:04:00 PM EDT [facility] Name Value Range Interpretation Code Description Data Ekta rce(s) Supporting Document(s) White Blood Count 4.8-10.8 Above high normal [facility] Red Blood Count 3.68-5.22 Normal (applies to non-numeric results) [facility] Hemoglobin 11.2-15.7 Normal (applies to non-numeric resul ts) [facility] Hematocrit 34.1-44.9 Normal (applies to non-numeric resul ts) [facility] Mean Corpuscular Volume 81-99 Normal (applies to non- numeric results) [facility] Mean Corpuscular Hemoglobin 27.0-33.0 Normal (appli es to non-numeric results) [facility] Mean Corpuscular HGB Conc 32.0-36.0 Normal (applies to no n-numeric results) [facility] Red Cell Distribution Width 11.5-14.5 Above high normal [facility] Platelet Count 299 X10 3/uL 130-450 Normal (applies to non-numeric results) [facility] Mean Platelet Volume 9.5-12.7 Normal (applies to non-num salome results) [facility] Imm Grans% (AUTO) 1 % 0-2 Normal (applies to non-numeri c results) [facility] Neutrophils % (AUTO) 60 % 40-75 Normal (applies to non-num salome results) [facility] Lymphocytes % (AUTO) 29 % 21-46 Normal (applies to non-num salome results) [facility] Monocytes % (AUTO) 8 % 5-12 Normal (applies to non-numer ic results) [facility] Eosinophils % (AUTO) 3 % 1-5 Normal (applies to non-num salome results) [facility] Basophils % (AUTO) 1 % 0-1 Normal (applies to non-numer ic results) [facility] Imm Grans# (AUTO) 0.0-0.5 Normal (applies to non-numeri c results) [facility] Neutrophils # (AUTO) 1.5-8.1 Normal (applies to non-num salome results) [facility] Lymphocytes # (AUTO) 1.0-3.1 Above high normal [facility] Monocytes # (AUTO) 0.2-1.3 Normal (applies to non-numer ic results) [facility] Eosinophils# (AUTO) 0.0-0.5 Normal (applies to non-nume yahir results) [facility] Basophils # (AUTO) 0.0-0.1 Normal (applies to non-numer ic results) [facility] ID Date Data Source [id number] 03/07/2021 12:01:00 PM EDT [facility] Name Value Range Interpretation Code Description Data Ekta rce(s) Supporting Document(s) Respiratory specimen severe acute respir atory syndrome coronavirus 2 (SARS-CoV-2) RNA Negative (qualifier value) [facility] This lab was ordered by [facility] Sony tillman and reported by [facility]. ID Date Data Source [id number] 03/07/2021 05:30:00 PM EDT [facility] Performed by: [facility] Present ? YCOVID [...] Certificate of Accreditation. Factsheets for healthcare providers: https://www.fda.gov/media/603916/download Factsheets for patients: https://www.fda.gov/media/089446/download The ID NOW Instrument is a rapid molecular in vitro diagnostic test utilizing an isothermal nucleic acid amplification technology intended for the qualitative detection of nucleic acid from the SARS-CoV-2 viral RNA. THIS IS A STATE REPORTABLE COMMUNICABLE DISEASE. Manual entry verified by Kim Bah 03/07/21 1729 Test Performed By: [facility] [address] [place] [address] Director: Sandra Zuñiga MD Name Value Range Interpretation Code Description Data Ekta rce(s) Supporting Document(s) ID Date Data Source [id number] 03/08/2021 02:17:00 PM EDT [facility] Name: ANGELIA ARTHUR : 1965 Age/Sex: 55F Ordering Provider: NGUYEN Abbott Med Rec #: [id number] Reg [facility] Room #: Date of Service: 03/07/21 Report Number: [id number] cc:Valerie Tarango MD Send Report To: [id number] XRP/XR Chest Xray Portable Reason for exam: [...] Date/Time: 03/07/21 1236 Transcribed Date/Time: 03/08/21 1417 Associate Creative Director: CAMPOS Name Value Range Interpretation Code Description Data Ekta rce(s) Supporting Document(s) ID Date Data Source [id number] 03/07/2021 12:04:00 PM EDT [facility] Name Value Range Interpretation Code Description Data Ekta rce(s) Supporting Document(s) Color,Urine Yellow Normal (applies to non-numeric resu lts) [facility] Clarity,Urine Clear Normal (applies to non-numeric re sults) [facility] Specific [place],Urine 1.001-1.030 Normal (applies to non- numeric results) [facility] PH,Urine 5.0-8.0 Normal (applies to non-numeric resul ts) [facility] Protein,Urine Negative Normal (applies to non-numeric re sults) [facility] Glucose,Urine (UA) Negative Normal (applies to non-numer ic results) [facility] Ketones,Urine Negative Normal (applies to non-numeric re sults) [facility] Blood,Urine Negative Normal (applies to non-numeric resu lts) [facility] Bilirubin,Urine Negative Normal (applies to non-numeric results) [facility] Urobilinogen,Urine Norm 0.2-1 Normal (applies to non-numer ic results) [facility] Leukocyte Esterase,Urine Negative Normal (applies to non -numeric results) [facility] Nitrite,Urine Negative Normal (applies to non-numeric re sults) [facility] ID Date Data Source [id number] 03/08/2021 09:46:00 AM EDT [facility] Name: ANGELIA ARTHUR : 1965 Age/Sex: 55F Ordering Provider: Roosevelt Ritchie DO Med Rec #: [id number] Reg Status:[facility] Room #: Date of Service: 03/07/21 Report Number: [id number] cc: Valerie Tarango MD; Roosevelt Ritchie DO Send Report To: Reason for exam: Chest Pain SINUS RHYTHM NORMAL ECG WARNING: DATA QUALITY MAY AFFECT INTERPRETATION 01/10/21 no sign change Physician Blow Torch Operator: Jose Fountain M.D. ECG HEART RATE: 98 /min ECG RR INTERVAL: 607 ms ECG P DURA TION: 110 ms ECG QRS DURATION: 82 ms ECG ME INTERVAL: 153 ms ECG QT INTERVAL: 324 ms ECG QTC INTERVAL: 390 ms Q-T dispersion: ms ECG P AXIS: 54 deg ECG QRS AXIS: 62 deg ECG T AXIS: 69 deg REPORT SIGNATURE ON FILE 03/08/21945 Reported By: Jose Fountain MD, [facility] <<Signature on File>> Exam Date/Time: 03/07/21 1122 Order #: [id number] Dictation Date/Time: 03/08/21945 Transcribed Date/Time: 03/08/21945 Associate Creative Director: VALDO Name Value Range Interpretation Code Description Data Ekta rce(s) Supporting Document(s) ID Date Data Source [id number] 03/05/2021 09:06:00 AM EDT [facility] spital Procedure Performed By: [facility] [address] [place] [address] Director: Asuncion Zuñiga MD . QUANTITY: >100,000/mL {ESCHERICHIA COLI} ESCHERICHIA COLISCT Name Value Range Interpretation Code Description Data Ekta rce(s) Supporting Document(s) ID Date Data Source [id number] 03/05/2021 09:06:00 AM EDT [facility] spital Procedure Performed By: [facility] [address] [place] [address] Director: Asuncion Zuñiga MD . QUANTITY: >100,000/mL {ESCHERICHIA COLI} ESCHERICHIA COLISCT Name Value Range Interpretation Code Description Data [facility] rce(s) Supporting Document(s) Ampicillin Susceptible. Indicates for microbiol ogy susceptibilities only. [facility] Cefazolin Susceptible. Indicates for microbiol ogy susceptibilities only. [facility] Cefepime Susceptible. Indicates for microbiol ogy susceptibilities only. [facility] ESBL - [facility] Ceftazadime Susceptible. Indicates for m icrobiology susceptibilities only. [facility] Ceftriaxone Susceptible. Indicates for m icrobiology susceptibilities only. [facility] Ciprofloxacin Susceptible. Ind icates for microbiology susceptibilities only. [facility] Ertapenem Susceptible. Indicates for microbiol ogy susceptibilities only. [facility] Gentamicin Susceptible. Indicates for microbiol ogy susceptibilities only. [facility] Levofloxacin Susceptible. Indicates for m icrobiology susceptibilities only. [facility] Nitrofurantoin Susceptible. Ind icates for microbiology susceptibilities only. [facility] Pipercillin/Tazobactam Susceptib le. Indicates for microbiology susceptibilities only. [facility] Trimeth/Sulfamethoxazole Suscept ible. Indicates for microbiology susceptibilities only. [facility] ID Date Data Source [id number] 03/05/2021 08:51:00 AM EDT [facility] Procedure Performed By: [facility] [address] [place] [address] Director: Asuncion Zuñiga MD . Name Value Range Interpretation Code Description Data [facility] rce(s) Supporting Document(s) Urine Culture [facility] ospital ID Date Data Source [id number] 03/05/2021 08:51:00 AM EDT [facility] Procedure Performed By: [facility] [address] [place] [address] Director: Asuncion Zuñiga MD . Name Value Range Interpretation Code Description Data Ekta rce(s) Supporting Document(s) Ampicillin Susceptible. Indicates for microbiol ogy susceptibilities only. [facility] Cefazolin Susceptible. Indicates for microbiol ogy susceptibilities only. [facility] Cefepime Susceptible. Indicates for microbiol ogy susceptibilities only. [facility] Ceftazadime Susceptible. Indicates for m icrobiology susceptibilities only. [facility] Ceftriaxone Susceptible. Indicates for m icrobiology susceptibilities only. [facility] Ciprofloxacin Susceptible. Ind icates for microbiology susceptibilities only. [facility] Ertapenem Susceptible. Indicates for microbiol ogy susceptibilities only. [facility] Gentamicin Susceptible. Indicates for microbiol ogy susceptibilities only. [facility] Levofloxacin Susceptible. Indicates for m icrobiology susceptibilities only. [facility] Nitrofurantoin Susceptible. Ind icates for microbiology susceptibilities only. [facility] Pipercillin/Tazobactam Susceptib le. Indicates for microbiology susceptibilities only. [facility] Trimeth/Sulfamethoxazole Suscept ible. Indicates for microbiology susceptibilities only. [facility] ID Date Data Source [id number] 03/03/2021 11:00:00 AM EDT [facility] Name Value Range Interpretation Code Description Data Ekta rce(s) Supporting Document(s) Color,Urine Colorl-Dk Y Normal (applies to non-numeric res ults) [facility] Clarity,Urine Clear Normal (applies to non-numeric re sults) [facility] Specific [place],Urine 1.005-1.030 Normal (applies to non- numeric results) [facility] pH,Urine 5.0-8.0 Normal (applies to non-numeric resul ts) [facility] Protein,Urine Negative Normal (applies to non-numeric re sults) [facility] Glucose,Urine Negative Normal (applies to non-numeric re sults) [facility] Ketones,Urine Negative Normal (applies to non-numeric re sults) [facility] Blood,Urine Negative Normal (applies to non-numeric resu lts) [facility] Bilirubin,Urine Negative Normal (applies to non-numeric results) [facility] Urobilinogen,Urine 0.2-1.0 Normal (applies to non-numer ic results) [facility] Leukocyte Esterase,Urine Negative Normal (applies to non -numeric results) [facility] Nitrite,Urine Negative Normal (applies to non-numeric re sults) [facility] RBC,Urine None Seen Normal (applies to non-numeric resul ts) [facility] WBC,Urine None Seen [place] [facility] Casts,Urine None Seen Normal (applies to non-numeric resu lts) [facility] Squamous Cells,Urine None Seen [facility] Bacteria,Urine None Seen [facility] ital ID Date Data Source [id number] 02/11/2021 09:40:00 AM EDT [facility] Name Value Range Interpretation Code Description Data Ekta rce(s) Supporting Document(s) FibroTest Score Normal (applies to non-numeric results) [facility] FibroTest Stage Normal (applies to non-numeric results) [facility] FibroTest Interpretation Normal (applies to non -numeric results) [facility] FibroTest estimates liver fibrosis Fibr oTest Score Stage Interpretation 0.00-0.21 F0 no fibrosis 0.21-0.27 F0-F1 no fibrosis 0.27-0.31 F1 minimal fibrosis 0.31-0.48 F1-F2 minimal fibrosis 0.48-0.58 F2 moderate fibrosis 0.58-0.72 F3 advanced fibrosis 0.72-0.74 F3-F4 advanced fibrosis 0.74-1.00 F4 severe fibrosis (Cirrhosis) NashTest 2 Score Normal (applies to non-numeric results) [facility] NashTest 2 Grade Normal (applies to non-numeric results) [facility] NashTest 2 Interpretation Normal (applies to no n-numeric results) [facility] NashTest 2 estimates non-alcoholic steat ohepatitis (KARIMI) NashTest 2 Score Grade Interpretation 0.00-0.25 N0 no KARIMI 0.25-0.50 N1 mild KARIMI 0.50-0.75 N2 moderate KARIMI 0.75-1.00 N3 severe KARIMI SteatoTest 2 Score Normal (applies to non-numer ic results) [facility] SteatoTest 2 Grade Normal (applies to non-numer ic results) [facility] SteatoTest 2 Interpretation Normal (applies to non-numeric results) [facility] RESULT: moderate/severe steatosis (34-10 0%) SteatoTest 2 estimates liver steatosis. A stage of S1 or S2S3 is considered clinically significant. SteatoTest 2 Score Stage Interpretation 0.00-0.40 S0 no steatosis (<5%) 0.40-0.55 S1 mild steatosis (5-33%) 0.55-1.00 S2S3 moderate/severe steatosis (34-100%) KARIMI-FibroTest Comment Normal (applies to non-n umeric results) [facility] The reliability of results is dependent on compliance with the preanalytical and analytical conditions recommended by [facility]. The tests have to be deferred for: [...] by the U.S. Food and Drug Administration. [facility] Serial Number [id number] Normal (appli es to non-numeric results) [facility] Apolipoprotein A1,S 143 mg/dL >=140 Normal (applies to non-nume yahir results) [facility] Jvgnl-6-Cichonubdbiez,S 171 mg/dL 100 - 280 Normal ( applies to non-numeric results) [facility] Haptoglobin,S 200 mg/dL 30 - 200 Normal (applies to non-numeric re sults) [facility] Alanine Amino (ALT),S 37 U/L 7-45 Normal (applies to non-nu meric results) [facility] Gamma Glutamyltrans (GGT),S 46 U/L 5 - 36 Very abnormal (applies to non-numeric units [facility] Total Bilirubin,S <=1.2 Normal (applies to non-numeri c results) [facility] Aspartate Aminotrans (AST),S 26 U/L 8 - 43 Nor mal (applies to non-numeric results) [facility] Total Cholesterol,S 201 mg/dL Very abnormal (applies to n on-numeric units [facility] REFERENCE VALUE------ Desirable: < 200 Borderline high: 200 - 239 High: > or = 240 Triglycerides,S 197 mg/dL Very abnormal (applies to non-n umeric units [facility] REFERENCE VALUE------ Normal: <150 Borderline high: 150-199 High: 200-499 Very high: > or =500 Fasting Glucose,Plas 92 mg/dL 70 - 100 Normal (applies to n on-numeric results) [facility] Test Performed by: [facility] [address] [place] [address] Return Clerk: Willi Rendon M.D. Ph.D.; CLIA# [id number] Test Performed by: [facility] [address] [place] [address] Return Clerk: Willi Rendon M.D. Ph.D.; CLIA# [id number] ID Date Data Source [id number] 02/11/2021 08:51:00 AM EDT [facility] Name Value Range Interpretation Code Description Data Ekta rce(s) Supporting Document(s) FibroTest Score Normal (applies to non-numeric results) [facility] FibroTest Stage Normal (applies to non-numeric results) [facility] FibroTest Interpretation Normal (applies to non -numeric results) [facility] FibroTest estimates liver fibrosis Fibr oTest Score Stage Interpretation 0.00-0.21 F0 no fibrosis 0.21-0.27 F0-F1 no fibrosis 0.27-0.31 F1 minimal fibrosis 0.31-0.48 F1-F2 minimal fibrosis 0.48-0.58 F2 moderate fibrosis 0.58-0.72 F3 advanced fibrosis 0.72-0.74 F3-F4 advanced fibrosis 0.74-1.00 F4 severe fibrosis (Cirrhosis) NashTest 2 Score Normal (applies to non-numeric results) [facility] NashTest 2 Grade Normal (applies to non-numeric results) [facility] NashTest 2 Interpretation Normal (applies to no n-numeric results) [facility] NashTest 2 estimates non-alcoholic steat ohepatitis (KARIMI) NashTest 2 Score Grade Interpretation 0.00-0.25 N0 no KARIMI 0.25-0.50 N1 mild KARIMI 0.50-0.75 N2 moderate KARIMI 0.75-1.00 N3 severe KARIMI SteatoTest 2 Score Normal (applies to non-numer ic results) [facility] SteatoTest 2 Grade Normal (applies to non-numer ic results) [facility] SteatoTest 2 Interpretation Normal (applies to non-numeric results) [facility] RESULT: moderate/severe steatosis (34-10 0%) SteatoTest 2 estimates liver steatosis. A stage of S1 or S2S3 is considered clinically significant. SteatoTest 2 Score Stage Interpretation 0.00-0.40 S0 no steatosis (<5%) 0.40-0.55 S1 mild steatosis (5-33%) 0.55-1.00 S2S3 moderate/severe steatosis (34-100%) KARIMI-FibroTest Comment Normal (applies to non-n umeric results) [facility] The reliability of results is dependent on compliance with the preanalytical and analytical conditions recommended by [facility]. The tests have to be deferred for: [...] by the U.S. Food and Drug Administration. [facility] Serial Number [id number] Normal (appli es to non-numeric results) [facility] Apolipoprotein A1,S 143 mg/dL >=140 Normal (applies to non-nume yahir results) [facility] Sycfm-9-Wyvusvmlbqqsl,S 171 mg/dL 100 - 280 Normal ( applies to non-numeric results) [facility] Haptoglobin,S 200 mg/dL 30 - 200 Normal (applies to non-numeric re sults) [facility] Alanine Amino (ALT),S 37 U/L 7-45 Normal (applies to non-nu meric results) [facility] Gamma Glutamyltrans (GGT),S 46 U/L 5 - 36 [facility] Total Bilirubin,S <=1.2 Normal (applies to non-numeri c results) [facility] Aspartate Aminotrans (AST),S 26 U/L 8 - 43 Nor mal (applies to non-numeric results) [facility] Total Cholesterol,S 201 mg/dL [facility] REFERENCE VALUE------ Desirable: < 200 Borderline high: 200 - 239 High: > or = 240 Triglycerides,S 197 mg/dL [facility] REFERENCE VALUE------ Normal: <150 Borderline high: 150-199 High: 200-499 Very high: > or =500 Fasting Glucose,Plas 92 mg/dL 70 - 100 Normal (applies to n on-numeric results) [facility] Test Performed by: [facility] [address] [place] [address] Return Clerk: Willi Rendon M.D. Ph.D.; CLIA# [id number] Test Performed by: [facility] [address] [place] [address] Return Clerk: Willi Rendon M.D. Ph.D.; CLIA# [id number] ID Date Data Source [id number] 02/07/2021 12:03:00 PM EDT [facility] Name Value Range Interpretation Code Description Data Ekta rce(s) Supporting Document(s) Bilirubin,Total 0.1-1.9 Normal (applies to non-numeric results) [facility] Bilirubin,Direct 0.05-0.20 Normal (applies to non-numeric results) [facility] SGOT(AST) 24 U/L 15-37 Normal (applies to non-numeric resul ts) [facility] Note the following drug interference: Sulfasalazine Sulfapyridine Can see falsely depressed Can see falsely elevated result with up to 10% results with up to 10% decrease in measurement increase in measurement Recommend patients be collected for this test prior to administration of either drug. SGPT(ALT) 51 U/L 12-78 Normal (applies to non-numeric resul ts) [facility] Note the following drug interference: Sulfasalazine Sulfapyridine Can see falsely depressed Can see falsely elevated result with up to 29% results with up to 10% decrease in measurement increase in measurement Recommend patients be collected for this test prior to administration of either drug. Alkaline Phosphatase 112 U/L 38-126 Normal (applies to non-num salmoe results) [facility] can increase Alkaline Phosp le vels up to 2 times the normal adult value. Normal values for children and adolescents are 2 to 3 times the normal adult value. Total Protein 6.0-8.2 Normal (applies to non-numeric re sults) [facility] Albumin Level 3.4-5.0 Normal (applies to non-numeric re sults) [facility] ID Date Data Source [id number] 02/06/2021 12:42:00 PM EDT [facility] Name Value Range Interpretation Code Description Data Ekta rce(s) Supporting Document(s) White Blood Count 4.8-10.8 Normal (applies to non-numeri c results) [facility] Red Blood Count 3.68-5.22 Normal (applies to non-numeric results) [facility] Hemoglobin 11.2-15.7 Normal (applies to non-numeric resul ts) [facility] Hematocrit 34.1-44.9 Normal (applies to non-numeric resul ts) [facility] Mean Corpuscular Volume 81-99 Normal (applies to non- numeric results) [facility] Mean Corpuscular Hemoglobin 27.0-33.0 Normal (appli es to non-numeric results) [facility] Mean Corpuscular HGB Conc 32.0-36.0 Normal (applies to no n-numeric results) [facility] Red Cell Distribution Width 11.5-14.5 Above high normal [facility] Platelet Count 287 X10 3/uL 130-450 Normal (applies to non-numeric results) [facility] Mean Platelet Volume 9.5-12.7 Normal (applies to non-num salome results) [facility] Imm Grans% (AUTO) 1 % 0-2 Normal (applies to non-numeri c results) [facility] Neutrophils % (AUTO) 58 % 40-75 Normal (applies to non-num salome results) [facility] Lymphocytes % (AUTO) 34 % 21-46 Normal (applies to non-num salome results) [facility] Monocytes % (AUTO) 6 % 5-12 Normal (applies to non-numer ic results) [facility] Eosinophils % (AUTO) 1 % 1-5 Normal (applies to non-num salome results) [facility] Basophils % (AUTO) 1 % 0-1 Normal (applies to non-numer ic results) [facility] Imm Grans# (AUTO) 0.0-0.5 Normal (applies to non-numeri c results) [facility] Neutrophils # (AUTO) 1.5-8.1 Normal (applies to non-num salome results) [facility] Lymphocytes # (AUTO) 1.0-3.1 Above high normal [facility] Monocytes # (AUTO) 0.2-1.3 Normal (applies to non-numer ic results) [facility] Eosinophils# (AUTO) 0.0-0.5 Normal (applies to non-nume yahir results) [facility] Basophils # (AUTO) 0.0-0.1 Normal (applies to non-numer ic results) [facility] ID Date Data Source [id number] 02/06/2021 12:42:00 PM EDT [facility] Name Value Range Interpretation Code Description Data Ekta rce(s) Supporting Document(s) Erythrocyte Sedimentation ESR 40 mm/hr 0-20 Above high normal [facility] ID Date Data Source [id number] 02/06/2021 12:26:00 PM EDT [facility] Name Value Range Interpretation Code Description Data Ekta rce(s) Supporting Document(s) Sodium 141 mmol/L 137-145 Normal (applies to non-numeric resul ts) [facility] Potassium 3.5-5.1 Normal (applies to non-numeric resul ts) [facility] Chloride 108 mmol/L 98-112 Normal (applies to non-numeric resul ts) [facility] Carbon Dioxide CO2 22.0-33.0 Normal (applies to non-numer ic results) [facility] Anion Gap 4.0-11.0 Normal (applies to non-numeric resul ts) [facility] BUN 20 mg/dL 7-17 Above high normal [facility] Creatinine 0.70-1.20 Below low normal [facility] GFR >60 Normal (applies to non-numeric results) [facility] Result based on MDRD formula. Glucose Level 90 mg/dL 74-99 Normal (applies to non-numeric re sults) [facility] The reference range is only applicable w hen fasting. Calcium-Uncorrected 8.4-10.2 Normal (applies to non-nume yahir results) [facility] Corrected Calcium 8.4-10.2 Normal (applies to non-numeri c results) [facility] Bilirubin,Total 0.2-1.3 Normal (applies to non-numeric results) [facility] SGOT(AST) 24 U/L 14-36 Normal (applies to non-numeric resul ts) [facility] SGPT(ALT) 40 U/L 9-52 Normal (applies to non-numeric resul ts) [facility] Alkaline Phosphatase 106 U/L 38-126 Normal (applies to non-num salome results) [facility] can increase Alkaline Phosp le vels up to 2 times the normal adult value. Normal values for children and adolescents are 2 to 3 times the normal adult value. Total Protein 6.3-8.2 Normal (applies to non-numeric re sults) [facility] Albumin 3.5-5.0 Below low normal [facility] ID Date Data Source [id number] 02/06/2021 12:26:00 PM EDT [facility] Name Value Range Interpretation Code Description Data Ekta rce(s) Supporting Document(s) C-Reactive Protein,Wide Range <3.00 Above high normal [facility] ID Date Data Source [id number] 01/29/2021 11:00:00 AM EDT [facility] Name Value Range Interpretation Code Description Data Ekta rce(s) Supporting Document(s) EGD-Colonoscopy [facility] TOODVs9fUiGAVsJuIFBcFsoELSwhQKuuPTUtM1S1GWqoHz5ZDZthyhAkHNNrVd2+RVAmVR3wdw8vQRUd gMy [file] rod hanger+uSk7EuLpcT+MIjkYvXaLn9+uqNNjhL0mgcrNJdZhr5j4cgkLLI2aYhB/MI7k+/3qVCAJo/Rv3Jp0l [file] Y4GSAe9pNn+s1NNwQsrTKsujta3/ftWY36piemvf5Mi9sv7Om0tC6sVWbypVs0gc+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/5PxSonjQcEu [file] Cami/ajJW/ono7+F+YhpDFQ6wVt7UrMrwuTa3IZfojznCDK+cmBwxgeN8ESYEHBqTwkDMi0K6fKQViXJVd maria del rosario/Jom0MbgfG/6VKpAEXmA4RQbDUt/xCogv3/lcXX [file] FOL+Sand Mixer/1NDL/2Xifev2qkJYkmEtF74MhqzThBatfL [file] sbp1PajuYgvdrtccaHFMbKAKwaTZ+SEXkH0tGPhtjKRURx44Qfqg90/2l+YMRtnGyH7TMG3ylt79/Sarah k6hmS0OXkLpnMBSmDPZTu+ZYr1NxJSZPa6ZPmjahNy bSGQFsnL74cTrs0vjz7oxJkr5Imsbau8kEB81VoBAWY7KNtP6XkcptCCN2IfNPr0pRL9fu7hbtJ0dg8Q +xRAy1L+amIlYvBRex73xfPSIdkviY30WxSovOrhkx0qvEVz1+xMd195flJ7QYa9mYRzKnbnBHQTrEOc LOkWqtwrt2zlSToGs6ByQzLWdazvE5Ud52Jy7LURrp U11wAKKkcsh6mqg2eqdzfROE9uO3KmjvOnAi/LG/b22qrEShOktb1EW0524ocfhblEAXzI2uk202wH90 XS208Ku/No8mXRPbwdVy1CHZBo8NDNFwFTuCXvtagSg2l5++ZsHOBQOM3u5pfHGo4I5lkAKyV1F1kaYe sTZE3aa0yxydB4dVM7sJgnPWhcLVVlWS4nSrQVKlcG SPDIwU+WWch6y60IqWhZjL2npUGcDQPx5tYDluWGjGVxJ/gYUTmk3qEwB0CCXuK/1j3XS063EqPsZ5V4 0pxWb1Wf1oRBvvbTGa2RNqQn7g7f6aK4v+1bIhzqkQuyZBAMZPQitKRfqP2Tww9WUIDOa0RUXSn5wfmD zJHL0v3y1Wj1uyIdBvFmejBrc1kuxIjonvigtrxQNv MUTGLXAJk77/NoO9FWsz4ViyX1+8KzRCwv5dUX8V4HOGb8CgBWN4k7zZEay3MWZY777y38n0pKjhWMLM 4/w1CyOX0fEATQdDGgdkLzOTCewZLS8V6L7cJlmE9gZD0iz3zZlbX7+5U+eWcLOUk826a6GEVke/h1m7 XbHdbbAzkYe2PoJR5i5RXBTMOh/CEY6I3eXjRe+hOW RcKhpfG712CBM8NLyW+/Beatriz/iiclNMtmu31AnPBkAi9osW0vePWiquu2XXvvlVzAqz9PFuhIN14TBm+ 3SM88X8Lt1HBAipUnpioNl9wd0J+dDu+3sCHQNreQT20gozUqHvPS6q8roHUqYInuthLjcreFMZZZ9XX 8vSxtuMSS3JBB/wdbGiJMrf9/yJbQv8+NYDVJIqqrB 06aLigXyHXDVISXZklsdABEgNEGnGxIqrIgELJt35zAFbAdqx09NxIeX1NHM5eu5I0nDYoUOrHQmUFw+ WwZHLDhwbVvtyl9/LY33hQVsOLrWEZZq8z7OqUnqZYNfSjKcoKfGjeypgWyEGzP4E4P5OL2VaRSx8RMQ 5gVucnpaBJh5o5/jyefrsjBhirV7eZnLQmzhsfAUkj w9qMu6CCigJmxnkaLis9pR9+HPtTuiaBAUz1ippnKI4INYDWgyBOmESGHMdiZ8X8fk7VdCcgObx5jqUd 70eUFg3dPPdbympVstZfQMwbeZQDKeN0jSWsyEjnmu/0V/wjTYO3xNlmocE8okIrSPctPAe9H2QtyJxp Vcyg5Nc+LRp0J1zYdSSEVX2/TMHgEfLRbwGCYyaOa6 rod hanger+CA1nxhOQQsJP+t4eVfcDPTsGnQ2Zt78xO2lm7SbwpliZPp+PjLFKd8TATcQibshppPONs8cDn8dXu [file] oVVw94jvQBN1Aa6uJ8q10UslWfXdh7hhH27+PM [file] Jose D+Y4Rmo2w2l45szDmVjKHvO/zA9BzamTjmKwP+eV EkFc/AJAdvhN1ShfnpxJ4PcqIma9CXHk1cIWLxc9Q6A3cfDOT2i94Iv7d/0ZSJwlKL0uO86loWs3/c+Y Y5U0zgVOM42mrlAkudSnjerFMni/wCPmO/RSY0X7dE/qqV5jyN4CpiJEuciSgxfoTPy7cQS6c5/WerWt XoLENIRFzzwp9CAm/XSNijsz+8NTyx+bJ4Rwqi271w gjLoCOl2z0EBAO3zq3D1kE/3eHhO6EjQVtbZO9JsditdjDsUqfA0cJLAXqwaJqLBQfGnD/K3K/KDF6zS 2Ovj4Je1C1nIfIKBu54zsGvQ4+tVRvbl1jH9IDDWeFIG3j4OTj55BC8hMxvtRhaLf4Gaxjw77ovapQ4+ 9+nSawmpRAGsgojVopxcwMjrrz0yczMK3v6WVb0W7x [file] tCK3YPiYTxtg3EEDbGjUU6acUVem5qziYeC/Maria Del Rosario/ARKmb/YvIESr0j4JaUE07W+NkIcoi3N54AsUVJ98 [file] kpW//pP/vGj64fAF+3xTZD6HKNu4GCUwv8b/Yd5+Director Smb Sales [file] [id number] ID Date Data Source [id number] 01/24/2021 08:23:00 PM EDT [facility] FAX TO [phone] Name Value Range Interpretation Code Description Data Ekta rce(s) Supporting Document(s) SARS-CoV-2 RNA INHOUSE Negative Normal (applies to non-n umeric results) [facility] THIS IS A [facility] REPORTABLE COMMUNICABLE DISEASE. Testing was performed using the [employer] COVID-19 MDx Assay. This test has been [...] be found at the following links: Providers: https://www.fda.gov/media/591275/download Patients : https://www.fda.gov/media/556916/download THIS IS A [facility] REPORTABLE COMMUNICABLE DISEASE Negative results do not preclude SARS-CoV-2 infection and should not be used as the sole basis for patient management decisions. Negative results must be combined with clinical observations,patient history, and epidemiological information. ID Date Data Source [id number] 01/24/2021 07:30:00 AM EDT [facility] Name Value Range Interpretation Code Description Data Ekta rce(s) Supporting Document(s) Respiratory specimen severe acute respir atory syndrome coronavirus 2 (SARS-CoV-2) RNA Negative (qualifier value) [facility] This lab was ordered by Beverley raymond and reported by . ID Date Data Source [id number] 01/22/2021 02:06:00 PM EDT [facility] Imaging Services Department Imaging Report [address] [place], [place] [address] %(RAD)RES..mtdd.print.filter("line") Name: ANGELIA ARTHUR : 1965 Age/Sex: 55F Ordering Provider: NGUYEN Parr Med Rec #: [id number] Reg Status: [facility] ER Room #: Date of Service: 01/21/21 Report Number: [id number] cc:Valerie Tarango MD Send Report To: [id number] MRI/MRI Lum Spine No Contrast Reason for [...] Date/Time: 01/21/21 1631 Transcribed Date/Time: 01/22/21 1406 Associate Creative Director: CAMPOS Name Value Range Interpretation Code Description Data Ekta rce(s) Supporting Document(s) ID Date Data Source [id number] 01/20/2021 06:06:00 PM EDT [facility] Name Value Range Interpretation Code Description Data Ekta rce(s) Supporting Document(s) FESAT Iron result 173 ug/dL 37-170 [facility] Test Performed By: [facility] [address] [place] [address] Director: Sandra Zuñiga MD FESAT TIBC result 367 ug/dL 265-497 Normal (applies to non-numeri c results) [facility] Test Performed By: [facility] [address] [place] [address] Director: Sandra Zuñiga MD FESAT %Iron Saturation result 12.0-55.0 No rmal (applies to non-numeric results) [facility] Test Performed By: [facility] [address] [place] [address] Director: Sandra Zuñiga MD ID Date Data Source [id number] 01/20/2021 06:06:00 PM T [facility] Name Value Range Interpretation Code Description Data Ekta rce(s) Supporting Document(s) Ferritin result 263 ng/mL 11.1-264.0 Normal (applies to non-numeric results) [facility] Test Performed By: [facility] [address] [place] [address] Director: Sandra Zuñiga MD ID Date Data Source [id number] 01/20/2021 02:14:00 PM EDT [facility] Name Value Range Interpretation Code Description Data Ekta rce(s) Supporting Document(s) Hemoglobin A1c Above high normal [facility] Reference Range Normal: < 5.7% Pr ediabetes: 5.7-6.4% Diabetes: > 6.5% Estimated Avg Glucose 134 mg/dL 126-240 Normal (applies to non-numeric results) [facility] ID Date Data Source [id number] 01/20/2021 01:36:00 PM EDT [facility] Value Range Interpretation Code Description Data Ekta rce(s) Supporting Document(s) Vitamin D, Total 30.0-100.0 Below low normal [facility] ID Date Data Source [id number] 01/20/2021 05:20:00 PM EDT [facility] Value Range Interpretation Code Description Data Ekta rce(s) Supporting Document(s) Iron FE Level 173 ug/dL 37-170 Above high normal [facility] Test Performed By: [facility] [address] [place] [address] Director: Sandra Zuñiga MD Total Iron Binding Capacity 367 ug/dL 265-497 Norm al (applies to non-numeric results) [facility] Test Performed By: [facility] [address] [place] [address] Director: Sandra Zuñiga MD %Iron Saturation 12.0-55.0 Normal (applies to non-numeric results) [facility] Test Performed By: [facility] [address] [place] [address] Director: Sandra Zuñiga MD ID Date Data Source [id number] 01/20/2021 05:20:00 PM EDT [facility] Value Range Interpretation Code Description Data Ekta rce(s) Supporting Document(s) Ferritin 263 ng/mL 11.1-264.0 Normal (applies to non-numeric resul ts) [facility] Test Performed By: [facility] [address] [place] [address] Director: Sandra Zuñiga MD ID Date Data Source [id number] 01/15/2021 07:21:00 AM EDT [facility] Name: ANGELIA ARTHUR : 1965 Age/Sex: 55F Ordering Provider: Estrada Colindres MD Med Rec #: [id number] Reg Status: DEP REF Room #: Date of Service: 01/13/21 Report Number: [id number] cc:Valerie Tarango MD; Estrada Colindres MD Send Report To: [id number] XRP/XR Fluoro Plain Reason for exam: MYASTHENIA [...] Date/Time: 01/13/21 1744 Transcribed Date/Time: 01/15/21 0721 Associate Creative Director: MACHO Name Value Range Interpretation Code Description Data Ekta rce(s) Supporting Document(s) ID Date Data Source [id number] 01/16/2021 06:49:00 PM EDT [facility] Name Value Range Interpretation Code Description Data Ekta rce(s) Supporting Document(s) Calprotectin,Fecal result 90 ug/g 0-120 Normal (applies to non-numeric results) [facility] Concentration Interpretation Follo w-Up <16 - 50 ug/g Normal None >50 -120 ug/g Borderline Re-evaluate in 4-6 weeks >120 ug/g Abnormal Repeat as clinically indicated Performed at: [address] [id number] Return Clerk: Favio Mcknight MD, Phone: [phone] ID Date Data Source [id number] 01/16/2021 06:47:00 PM EDT [facility] Name Value Range Interpretation Code Description Data Ekta rce(s) Supporting Document(s) Calprotectin,Stool(LCI) result 90 ug/g 0-120 N ormal (applies to non-numeric results) [facility] Concentration Interpretation Follo w-Up <16 - 50 ug/g Normal None >50 -120 ug/g Borderline Re-evaluate in 4-6 weeks >120 ug/g Abnormal Repeat as clinically indicated Performed at: [address] [id number] Return Clerk: Favio Mcknight MD, Phone: [phone] ID Date Data Source [id number] 01/10/2021 10:26:00 AM EDT [facility] Name: ANGELIA ARTHUR [facility] Rec #: [id number] : 1965 Age/Sex: 55F Date of Service: 01/10/21 PHYSICIAN CHART Physician Documentation [facility] Name: Angelia Arthur Age: 55 yrs [...] 55-year-old female with a past medical history [facility] of arthritis, chronic back pain, GERD, liver [...] is not exacerbated with bowel movements . FINISH OPENER: 11:01 LMP N/A - Post- menopause kendrick [...] to communication noted, The patient speaks fluent Kazakh. ROS: 14:00 Constitutional: Negative for fever. Abdomen/GI: [...] 14.4; HGB 13.2; RDW 16.0; PLT 286. [facility] 01/10 11:32 Order name: Comprehensive Metabolic Prof.; [...] name: Cardiology EKG Interpretation - Choose Reason [facility] for Test 01/10 12:40 Order name: Renal - US [facility] 01/10 14:25 Order name: Ct Abdomen & Pelvis with Con 2 01/10 11:32 Order name: NPO; Complete Time: 12:14 2 Dispensed Medications: 13:41 Drug: Ofirmev 1000 mg [Ofirmev 1,000 mg/100 mL (10 mg/mL) [facility] intravenous solution] Route: IVPB; Site: right antecubital; 13:51 Follow up: Response: Pain is decreased; IV Status: [facility] Completed infusion; IV Intake: 100ml Disposition Summary: 01/10/21 15:10 Discharge Ordered Location: Home/Self Care [facility] Condition: Good [facility] Diagnosis - Abdominal Pain, Right Lower Quadrant [...] Pain, Adult 2 Forms: - Medication Reconciliation [facility] Signatures: Dispatcher [employer] Roosevelt Irizarry DO DO rc3 Carisa Adkins PA-C PAHayes [facility] Winsome Marino RN Hamilton Stock RN RN rj Corrections: (The following items were deleted from the chart) 11:10 11:07 Home Meds: Vitamin B-12 Oral tab; kendrick marks Name Value Range Interpretation Code Description Data Ekta rce(s) Supporting Document(s) ID Date Data Source [id number] 01/10/2021 10:26:00 AM EDT [facility] Name: ANGELIA ARTHUR [facility] Rec #: [id number] : 1965 Age/Sex: 55F Date of Service: 01/10/21 DISPOSITION SUMMARY Discharge Summary 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 </span>
<span>Return to the emergency room for [...] rce(s) Supporting Document(s) ID Date Data Source [id number] 01/10/2021 10:26:00 AM EDT [facility] Name: ANGELIA ARTHUR [facility] Rec #: [id number] : 1965 Age/Sex: 55F Date of Service: 01/10/21 NURSE [address]ART Nurse's Notes [facility] Name: Angelia Arthur Age: 55 yrs Sex: Female : 1965 Arrival Date: 01/10/2021 Time: 10:26 Bed 13 Private MD: Valerie Tarango L Diagnosis: Abdominal Pain, Right Lower Quadrant Presentation: 01/10 10:42 Acuity: Urgent - 3 kendrick 11:03 Transition of care: patient was not received from another [facility] setting of care. Presenting complaint: Patient states [...] COVID-19? No. 11:03 Method Of Arrival: Walk-In [facility] Triage Assessment: 11:05 SEPSIS SCREEN: A Confirmed [...] meal was January 09, 2021. at 17:00. FINISH OPENER: 11:01 LMP N/A - Post-menopause [facility] Historical: - Allergies: Azulfidine; Reglan; Soliris; Stelara; [...] to communication noted, The patient speaks fluent Kazakh. Screenin:15 AUDIT 1. How often do you [...] 18; Pulse Ox 98% on R/A; Pain [facility] 03/20; 15:06 BP 129 / 85; Pulse 75; Resp 18; Pulse Ox 98% on R/A; Pain [facility] 02/17; 11:01 Body Mass Index 44.29 [...] by ED staff. Urine collected. Clean catch [facility] specimen. Inserted peripheral IV: 20 gauge in right antecubital area and blood collected. 13:07 Radiology: The patient returned from ultrasound at 13:08. rj 15:10 Valerie Tarango MD is Referral Physician. hm2 15:37 No procedures ordered. Discontinued IV intact, bleeding rjh1 controlled, pressure dressing applied, No redness/swelling at site. Administered Medications: 13:41 Drug: Ofirmev 1000 mg [Ofirmev 1,000 mg/100 mL (10 mg/mL) [facility] intravenous solution] Route: IVPB; Site: right [...] rce(s) Supporting Document(s) ID Date Data Source [id number] 01/13/2021 07:08:00 AM EDT [facility] Name: ANGELIA ARTHUR : 1965 Age/Sex: 55F Ordering Provider: NGUYEN Neal Med Rec #: [id number] [facility] Room #: Date of Service: 01/10/21 Report Number: [id number] cc:Valerie Tarango MD; NGUYEN Neal Send Report To: [id number] CT/CT Abdomen & Pelvis w Con Reason [...] rce(s) Supporting Document(s) ID Date Data Source [id number] 01/12/2021 04:06:00 PM EDT [facility] Name: ANGELIA ARTHUR : 1965 Age/Sex: 55F Ordering Provider: NGUYEN Neal Med Rec #: [id number] [facility] Room #: Date of Service: 01/10/21 Report Number: [id number] cc: Valerie Tarango MD; NGUYEN Neal Send Report To: Reason for exam: ABDOMINAL PAIN SINUS RHYTHM Physician Blow Torch Operator: Yair Portillo M.D. ECG HEART RATE: 73 /min ECG RR INTERVAL: 814 ms ECG P DURATION: 111 ms ECG QRS DURATION: 80 ms ECG ME INTERVAL: 154 ms ECG QT INTERVAL: 361 ms ECG QTC INTERVAL: 383 ms Q-T dispersion: ms ECG P AXIS: 55 deg ECG QRS AXIS: 69 deg ECG T AXIS: 57 deg REPORT SIGNATURE ON FILE 01/12/21 1606 Reported By: Yair Portillo MD <<Signature on File>> Exam Date/Time: 01/10/21 1316 Order #: [id number] Dictation Date/Time: 01/12/21 1606 Transcribed Date/Time: 01/12/211605 Associate Creative Director: VALDO Wade Value Range Interpretation Code Description Data Ekta rce(s) Supporting Document(s) ID Date Data Source [id number] 01/13/2021 10:24:00 AM EDT [facility] Name: ANGELIA ARTHUR : 1965 Age/Sex: 55F Ordering Provider: NGUYEN Neal Med Rec #: [id number] [facility] Room #: Date of Service: 01/10/21 Report Number: [id number] cc:Valerie Tarango MD; NGUYEN Neal Send Report To: [id number] US/US Renal Ultrasound Reason for exam: FLANK [...] Date/Time: 01/10/21 0147 Transcribed Date/Time: 01/13/21 1024 Associate Creative Director: WOLF Name Value Range Interpretation Code Description Data Ekta rce(s) Supporting Document(s) ID Date Data Source [id number] 01/10/2021 01:15:00 PM EDT [facility] Name Value Range Interpretation Code Description Data [facility] rce(s) Supporting Document(s) Troponin I 0.000-0.045 Normal (applies to non-numeric resu lts) [facility] ID Date Data Source [id number] 01/10/2021 01:13:00 PM EDT [facility] Name Value Range Interpretation Code Description Data [facility] rce(s) Supporting Document(s) Sodium 138 mmol/L 137-145 Normal (applies to non-numeric resul ts) [facility] Potassium 3.5-5.1 Normal (applies to non-numeric resul ts) [facility] Chloride 106 mmol/L 98-112 Normal (applies to non-numeric resul ts) [facility] Carbon Dioxide CO2 22.0-33.0 Normal (applies to non-numer ic results) [facility] Anion Gap 4.0-11.0 Below low normal [facility] BUN 17 mg/dL 7-17 Normal (applies to non-numeric resul ts) [facility] Creatinine 0.70-1.20 Below low normal [facility] GFR 90 mL/min >60 Normal (applies to non-numeric resul ts) [facility] Result based on MDRD formula. Glucose Level 87 mg/dL 74-99 Normal (applies to non-numeric re sults) [facility] The reference range is only applicable w hen fasting. Calcium-Uncorrected 8.4-10.2 Normal (applies to non-nume yahir results) [facility] Corrected Calcium 8.4-10.2 Normal (applies to non-numeri c results) [facility] Bilirubin,Total 0.2-1.3 Normal (applies to non-numeric results) [facility] SGOT(AST) 22 U/L 14-36 Normal (applies to non-numeric resul ts) [facility] SGPT(ALT) 35 U/L 9-52 Normal (applies to non-numeric resul ts) [facility] Alkaline Phosphatase 116 U/L 38-126 Normal (applies to non-num salome results) [facility] can increase Alkaline Phosp le vels up to 2 times the normal adult value. Normal values for children and adolescents are 2 to 3 times the normal adult value. Total Protein 6.3-8.2 Normal (applies to non-numeric re sults) [facility] Albumin 3.5-5.0 Normal (applies to non-numeric resul ts) [facility] ID Date Data Source [id number] 01/10/2021 01:13:00 PM EDT [facility] Name Value Range Interpretation Code Description Data Ekta rce(s) Supporting Document(s) C-Reactive Protein,Wide Range <3.00 Above high normal [facility] ID Date Data Source [id number] 01/10/2021 01:13:00 PM EDT [facility] Name Value Range Interpretation Code Description Data Ekta rce(s) Supporting Document(s) Lipase 121 U/L 73-393 Normal (applies to non-numeric resul ts) [facility] ID Date Data Source [id number] 01/10/2021 12:57:00 PM EDT [facility] Name Value Range Interpretation Code Description Data Ekta rce(s) Supporting Document(s) Color,Urine Yellow Normal (applies to non-numeric resu lts) [facility] Clarity,Urine Clear Normal (applies to non-numeric re sults) [facility] Specific [place],Urine 1.001-1.030 Normal (applies to non- numeric results) [facility] PH,Urine 4.6-8.0 Normal (applies to non-numeric resul ts) [facility] Protein,Urine Negative Normal (applies to non-numeric re sults) [facility] Glucose,Urine (UA) Negative Normal (applies to non-numer ic results) [facility] Ketones,Urine Negative Normal (applies to non-numeric re sults) [facility] Blood,Urine Negative Normal (applies to non-numeric resu lts) [facility] Bilirubin,Urine Negative Normal (applies to non-numeric results) [facility] Urobilinogen,Urine Norm 0.2-1 Normal (applies to non-numer ic results) [facility] Leukocyte Esterase,Urine Negative Normal (applies to non -numeric results) [facility] Nitrite,Urine Negative Normal (applies to non-numeric re sults) [facility] ID Date Data Source [id number] 01/10/2021 12:55:00 PM EDT [facility] Name Value Range Interpretation Code Description Data Ekta rce(s) Supporting Document(s) White Blood Count 4.8-10.8 Above high normal [facility] Red Blood Count 3.68-5.22 Normal (applies to non-numeric results) [facility] Hemoglobin 11.2-15.7 Normal (applies to non-numeric resul ts) [facility] Hematocrit 34.1-44.9 Normal (applies to non-numeric resul ts) [facility] Mean Corpuscular Volume 81-99 Below low normal [facility] Mean Corpuscular Hemoglobin 27.0-33.0 Normal (appli es to non-numeric results) [facility] Mean Corpuscular HGB Conc 32.0-36.0 Normal (applies to no n-numeric results) [facility] Red Cell Distribution Width 11.5-14.5 Above high normal [facility] Platelet Count 286 X10 3/uL 130-450 Normal (applies to non-numeric results) [facility] Mean Platelet Volume 9.5-12.7 Normal (applies to non-num salome results) [facility] Imm Grans% (AUTO) 1 % 0-2 Normal (applies to non-numeri c results) [facility] Neutrophils % (AUTO) 66 % 40-75 Normal (applies to non-num salome results) [facility] Lymphocytes % (AUTO) 26 % 21-46 Normal (applies to non-num salome results) [facility] Monocytes % (AUTO) 6 % 5-12 Normal (applies to non-numer ic results) [facility] Eosinophils % (AUTO) 2 % 1-5 Normal (applies to non-num salome results) [facility] Basophils % (AUTO) 0 % 0-1 Normal (applies to non-numer ic results) [facility] Imm Grans# (AUTO) 0.0-0.5 Normal (applies to non-numeri c results) [facility] Neutrophils # (AUTO) 1.5-8.1 Above high normal [facility] Lymphocytes # (AUTO) 1.0-3.1 Above high normal [facility] Monocytes # (AUTO) 0.2-1.3 Normal (applies to non-numer ic results) [facility] Eosinophils# (AUTO) 0.0-0.5 Normal (applies to non-nume yahir results) [facility] Basophils # (AUTO) 0.0-0.1 Normal (applies to non-numer ic results) [facility] ID Date Data Source [id number] 01/08/2021 05:06:00 PM EDT [facility] Name Value Range Interpretation Code Description Data Ekta rce(s) Supporting Document(s) White Blood Count 4.8-10.8 Above high normal [facility] Red Blood Count 3.68-5.22 Normal (applies to non-numeric results) [facility] Hemoglobin 11.2-15.7 Normal (applies to non-numeric resul ts) [facility] Hematocrit 34.1-44.9 Normal (applies to non-numeric resul ts) [facility] Mean Corpuscular Volume 81-99 Below low normal [facility] Mean Corpuscular Hemoglobin 27.0-33.0 Below low normal [facility] Mean Corpuscular HGB Conc 32.0-36.0 Normal (applies to no n-numeric results) [facility] Red Cell Distribution Width 11.5-14.5 Above high normal [facility] Platelet Count 332 X10 3/uL 130-450 Normal (applies to non-numeric results) [facility] Mean Platelet Volume 9.5-12.7 Normal (applies to non-num salome results) [facility] Imm Grans% (AUTO) 1 % 0-2 Normal (applies to non-numeri c results) [facility] Neutrophils % (AUTO) 77 % 40-75 Above high normal [facility] Lymphocytes % (AUTO) 15 % 21-46 Below low normal [facility] Monocytes % (AUTO) 6 % 5-12 Normal (applies to non-numer ic results) [facility] Eosinophils % (AUTO) 0 % 1-5 Below low normal [facility] Basophils % (AUTO) 0 % 0-1 Normal (applies to non-numer ic results) [facility] Imm Grans# (AUTO) 0.0-0.5 Normal (applies to non-numeri c results) [facility] Neutrophils # (AUTO) 1.5-8.1 Above high normal [facility] Lymphocytes # (AUTO) 1.0-3.1 Normal (applies to non-num salome results) [facility] Monocytes # (AUTO) 0.2-1.3 Normal (applies to non-numer ic results) [facility] Eosinophils# (AUTO) 0.0-0.5 Normal (applies to non-nume yahir results) [facility] Basophils # (AUTO) 0.0-0.1 Normal (applies to non-numer ic results) [facility] ID Date Data Source [id number] 01/08/2021 05:06:00 PM EDT [facility] Name Value Range Interpretation Code Description Data Ekta rce(s) Supporting Document(s) Erythrocyte Sedimentation ESR 22 mm/hr 0-20 Above high normal [facility] ID Date Data Source [id number] 01/08/2021 03:00:00 PM EDT [facility] Name Value Range Interpretation Code Description Data Ekta rce(s) Supporting Document(s) Sodium 138 mmol/L 137-145 Normal (applies to non-numeric resul ts) [facility] Potassium 3.5-5.1 Normal (applies to non-numeric resul ts) [facility] Chloride 105 mmol/L 98-112 Normal (applies to non-numeric resul ts) [facility] Carbon Dioxide CO2 22.0-33.0 Normal (applies to non-numer ic results) [facility] Anion Gap 4.0-11.0 Normal (applies to non-numeric resul ts) [facility] BUN 15 mg/dL 7-17 Normal (applies to non-numeric resul ts) [facility] Creatinine 0.70-1.20 Below low normal [facility] GFR >60 Normal (applies to non-numeric results) [facility] Result based on MDRD formula. Glucose Level 154 mg/dL 74-99 Above high normal [facility] The reference range is only applicable w hen fasting. Calcium-Uncorrected 8.4-10.2 Normal (applies to non-nume yahir results) [facility] Corrected Calcium 8.4-10.2 Normal (applies to non-numeri c results) [facility] Bilirubin,Total 0.2-1.3 Normal (applies to non-numeric results) [facility] SGOT(AST) 13 U/L 14-36 Below low normal [facility] SGPT(ALT) 37 U/L 9-52 Normal (applies to non-numeric resul ts) [facility] Alkaline Phosphatase 121 U/L 38-126 Normal (applies to non-num salome results) [facility] can increase Alkaline Phosp le vels up to 2 times the normal adult value. Normal values for children and adolescents are 2 to 3 times the normal adult value. Total Protein 6.3-8.2 Normal (applies to non-numeric re sults) [facility] Albumin 3.5-5.0 Below low normal [facility] ID Date Data Source [id number] 01/08/2021 03:00:00 PM EDT [facility] Name Value Range Interpretation Code Description Data Ekta rce(s) Supporting Document(s) C-Reactive Protein,Wide Range <3.00 Above high normal [facility] ID Date Data Source [id number] 01/07/2021 03:09:00 PM EDT [facility] Name: ANGELIA ARTHUR : 1965 Age/Sex: 55F Attending Physician: Estrada Colindres MD [facility] Rec #: [id number] Admission Date: Room #: Admitting Physician: Report Number: [id number] _ cc: Valerie Tarango MD Send Report [...] rce(s) Supporting Document(s) ID Date Data Source [id number] 01/09/2021 11:58:00 AM EDT [facility] Name: ANGELIA ARTHUR : 1965 Age/Sex: 55F Ordering Provider: Estrada Colindres MD Med Rec #: [id number] Reg Status: [facility] Room #: Date of Service: 01/07/21 Report Number: [id number] cc:Valerie Tarango MD; Estrada Colindres MD Send Report To: [id number] XRP/XR Chest Xray Portable Reason for exam: [...] Date/Time: 01/07/21 1516 Transcribed Date/Time: 01/09/21 1158 Associate Creative Director: CAMPOS Name Value Range Interpretation Code Description Data Ekta rce(s) Supporting Document(s) ID Date Data Source [id number] 01/08/2021 08:03:00 AM EDT [facility] Name: ANGELIA ARTHUR : 1965 Age/Sex: 55F Ordering Provider: sEtrada Colindres MD Med Rec #: [id number] Reg Status: [facility] Room #: Date of Service: 01/07/21 Report Number: [id number] cc:Valerie Tarango MD; Estrada Colindres MD Send Report To: [id number] XRP/XR C-Arm No Charge Reason for exam: [...] Date/Time: 01/07/21 1443 Transcribed Date/Time: 01/08/21 0803 Associate Creative Director: SILVINO Name Value Range Interpretation Code Description Data Ekta rce(s) Supporting Document(s) ID Date Data Source [id number] 01/07/2021 11:15:00 AM EDT [facility] Name Value Range Interpretation Code Description Data Ekta rce(s) Supporting Document(s) Respiratory specimen severe acute respir atory syndrome coronavirus 2 (SARS-CoV-2) RNA Negative (qualifier value) [facility] This lab was ordered by [facility] layne and reported by [facility]. ID Date Data Source [id number] 01/07/2021 11:44:00 AM EDT [facility] Negative results should be treated as pr [...] Certificate of Accreditation. Factsheets for healthcare providers: https://www.fda.gov/media/083368/download Factsheets for patients: https://www.fda.gov/media/552054/download The ID NOW Instrument is a rapid molecular in vitro diagnostic test utilizing an isothermal nucleic acid amplification technology intended for the qualitative detection of nucleic acid from the SARS-CoV-2 viral RNA. THIS IS A STATE REPORTABLE COMMUNICABLE DISEASE. Manual entry verified by Guerda Perez 01/07/21 1144 Test Performed By: [facility] [address] [place] [address] Director: Sandra Zuñiga MD Name Value Range Interpretation Code Description Data Ekta rce(s) Supporting Document(s) ID Date Data Source [id number] 01/03/2021 05:19:00 PM EDT [facility] Name: ANGELIA ARTHUR : 1965 Age/Sex: 55F Ordering Provider: Win Ray MD [facility] Rec #: [id number] Reg Status: [facility] REF Room #: Date of Service: 01/02/21 Report Number: [id number] cc:Valerie Tarango MD; Win Ray MD Send Report To: [id number] XRP/XR Modified Barium Swallow Reason for exam: [...] Date/Time: 01/02/21 1603 Transcribed Date/Time: 01/03/21 1719 Associate Creative Director: CAMPOS Name Value Range Interpretation Code Description Data Ekta rce(s) Supporting Document(s) ID Date Data Source [id number] 12/31/2020 01:15:00 PM EDT [facility] Name Value Range Interpretation Code Description Data Ekta rce(s) Supporting Document(s) [facility] MQWKOq0sUpUBSaMfVXShVotRMLnyUCcjEJJmG8B1PEkhPz2DVGhxpvAyMLRvBp4+DZKoOB9okd4vMSCr gMy [file] S/AK2/gN4/mseYSJknteUJbCgHX5tiNx/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/5yPid [file] TkuFggIIMnXOeR2ly4+RjuYuKrMrUG0+SAFefzF81wvM39n8/Jose Guadalupe/AoS+a3ftFLnch/SHAT/L2DTMFCj [file] Manuel cZ51nIrFnc12hoISb2hudil4XyvPxaEaBfP0puqOOC 2Se7bk7hiLhRlBxtwyif87iU0ogcbZ2dR1sccdIO/yJCdw+fqIl/kCBrWZ/BHDnXYCMDkVSdYSBMRJiv jI9jiyESlmaFPA+GDpOwbWXhunb8zJYmB73jGfSVKY3+l854MQvlF6ALLpsWPffpYXrwLzPviGGad1KK ywzyYFTN22YIim167Eg4rdsqUNIEVBKc3Q7uVagXe/ 5ZohRK1rL+HCb6XQCB6FaQ9jcH9G/ybopklZfNmJhK1v24Kkb38VapvvDslfVgAUv5hoCetsXARykmv8 T7DV5gbG67MTuf+RKmqOHxzc407TeF38QBg3EcVr9jfyA3omCEURocS9pKR3BN7GXVKzVbh8GHmo1/ow tMWNhtAUFdAuknvnNVvJNW9BpxwidL6bU8KC5NOY8j ySnGSKWpDXk3W0BtWYGZ9QAWqQ6QQXGMKJrQIhouvYUPdT/maria isabel/7gcGV0eDLZctxNqfQEYbsxyerzdFo [file] lab [file] qSNOkE0blpLV38wu3oh6q3He1/dH/3PvuXWq+/h3oer5w2lhfz7KNm4JjCQPfrnYYmobQGP0nCsg/grain spouter 7rUkOUrXvH0mbCURuvP4nf7abDLigMWLF8NEmbnYv9 q3S4/O205Rhntr0Y1Jr8QH1K4aQPrarEThFbnl0xgMbTSV+B1/VV7CVOytSHeZlB3Y4WFhAzMhWsdm6f 4F/9Xz56tf9g25RoIk0BgrmGq3Af42ypm9gWy08XGiX8vuYbuWcloNIY689Uo5tCEEgp+vQT5bUHk/3R W6YSlJROfF/SA7nTPOkXaEptNDhJr0CW59zCoarttG kp6WiA6xJQIFSjt522iqsDGu1Ta78Gu3LdNRUf8nrU+Jj5TF/db9cOC3KfuM/EbkqbGX+J9MxeVztPJS R53p5DIioWIWaRn3VOmP1lOAl/T0uGSAf5vCz+a8+RhusKkr/y9NQUv+XRSfSw4k4YWnotrd/6pr9WoK 4CfDdJzhaI71TFpxWi9bQZ1FAxN5Et5PX3vFrqL8bV WZu7BzYILHhvsmW67Q/JUdkey02+q6wUTdhNGz05OYhEOG1fVJvKq6luyX6BBtaxBCthVUgFizyoPtb5 GAjKw+UjIUkZv+iMypsQ89WBhSB6JXEkX4JTrikTjl/os9GZ/tZSSjG3m4GErotWWbAw78WNnLdj/lw0 YUlCVDlmG4RgHhoPXZj4v96UBnfFW25aRT/BQgRQhX wpHaP+koR7p4X+yWIYaNz+kSXfyZ048A1hpY6Agy3H2O/VIHsd0QsaaPS+voyQRMtDqGkcNB9M41f2+U LMdU8TgcrUM24y0WW4bYcn5s5NXIE0E7yyaRFrOzP7aPknPYrWERxUsy90yz738bgaWk+L3JwbWM/Kenneth [file] HEGILczN/W7nQdWYrPneqnjPph9iOSxoKEnlp0f82RPdWw1D3++bW3O7UEJTikEN7uBQJIGvjl+8I/Director Smb Sales [file] Urx6XCXBzCDRDgYYHITTn7cTDT6Y1SQFTKKpr9ysOM ZBSaAAtVgNc9rLJbyN8/UmTpKyGtKr62/4CwOhb1s99n9/72t9ZZ+zae9OyxsaUJxy3WdzXh8+Kve+oP lXAHLk9hCJCLa6EDoEEaD1Vtx43erAacAE926tP5oFoMEPRCRHVcTgbCpPa+4yeRjhdqMyF3hLCa9HtS MZq7A+wBLAcmjJGYXOHcE0LeGpphBa1NyLZkGtR5ij TXMvQbsK4O7WQddAB2uxlnVMFTUfmttO/2f7+jbgH9cUNnN/oWEe6hXDRg7nO3g7WldfckxDsvdE5UBM eqLPZLLc1jfTJgska6WYXUuaxx16KFdzppA2ahM+Bdf+U3PxbHM35hmhr/O++R9SSd3y7YOlhQmCNmNE tCQ5KHrMcdgzLwN/NjP06PRI8P3piLq37IeWbHit4x 8qrGFx8qupWag7cQZC0pbIYkbYFZTl7vnBx/jH+uil11WNtEj5Jtdgd9g7YOjYt1OCuSUnceZ11uzb7X JQ0rILU/DQ18tqZUMQk0/u/xxeQX8UFTxCcThe0pNvrvlRp9va86nspVTtw+lsbVbixo5Tx7E2Ft+tw+ tAUOrxzjreDvEI40EKR7NxnOnNTTzR8KDC/UPn6STx PP4RrGHOUKJ+3atlRix2Y+QGrfNQRzHag7IRgm1ouUBOQZ998fkWkLRA452AY7aanp/oFGrtCrNYVU9r clinical studies specialist+W/c0Jm3qweJTUe8Oyl4bWXcHW6y0bd2CahE6Du0VPyVwb0VUDg+sdQwtXBP28eMY0e8P96I8ft08n [file] 4cX2eFAAei2G6vR3sqY9p8qdUbUTygmgZiVELZ+hotel maid [file] [facility] [file] X0AYMuyanUk22y/8ukMZkL6JD1JjAmZ4KAkub0+ [file] Se3E3vJLIt1nxy+Pérez/QydvKj+6rmOQnJ50KOD7dA1beb95qw9kEh8rQRCyy+H4mz++pqsBHjAB171C5 [file] noE6xV7SdqLy+twM9VtThPif+kvBgV1fM+0hGudmpkJ94QZ809kwZR9wr4JRwv8+animal geneticist+PVMcC32TElav [file] CGmEwAxLRFbPRXNPB19CDOjGxgK3Nxm+oV0I/jose guadalupe/T [file] 1Qtc4QJnONByoyVYG9PMg/omF98BYETaRI477lQCoX8Y/Ox/v8rGOUYczFpyOnN/tY/XetbpPhVX+family resource coordinator xvJL2s3qVBBtMqAfIHUla/AtWn2o0Z7yopt5L1ZQM6 M7wxKb0Ozq6cyHqn9Nxj06gxBgKWH2kgOJxkotTS2SABV9oOPE0P2P3HVpVJkn6scw6ufEzr9/Z+1EsD +2jyhu3X0LxezLAHrrmRRX601SOgGY8X3FKfJ4STyx4xK7zh345o5Wq/BSFzIqTlr9FNeH2qkZfClas/ WtzVgIi0+K3ZRS8Oo9xtOASr/UvLF5hg8+uzzV3+CI +EE9tl8nEwtEaXD7dSwZ3ZVg/owlvFn2/rxrQbREdqDd50cvhvjG/cwRQPBEM6h7mtA1wr4kr5WWxIJy envmUmyFvVY4JA5F9oIi4+F3BnawKoKDt7IbyVH0cPTV0nGqLblameSx6CkMSZDuCgIgJLM0PTHoGQwi ZMnjhQvY302E0y0FIG/ZOg2wTZ9Cz7UbJ6cFtdy/DK gdLMO68LbqQptI6H2EH+uABE9K1HIJrtyhxPzkamglqm3oJmBkPl2ddcWBzRlHe0vcTinD1mR6eObcrp 6pERN80Ajfcl1DmrhSwjQTNwVc5aL57N672YRWbAhhMfyURNLUJdLYVJ7uwOLJew2tpun0DXt7bKOXJD R+4/MgmJWyFTHMTHx5/KLW6FBj9hLfDo7oIAX840tp zixDYeDKbrNEtaXa/Rm2mVfhT9/8XWDGs1x7eroOKUg+Tk6RmgqoD31etFNqcTYorI+b0gLsPTMaqPa5 C2sq6kR5D3suxhdO4LdjT7HrBGubdVaMfSAoS+tow feeder/9CG3NNyVcp0RBgcd0CD10YfQiJL4GhE6M5cw7c [file] Jwx0vsPTL/8DsMXYjN0RKlqhEJyQv5PIwGCeImezn5WVN/GxZeKZFFshta2jdTFvwmOj3mA4F2nc/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 [file] YvMoKzLTv9VOnEGmobG0m8Yxqy2QBfFB7tPSdGv0g2+38qDaPYhIn8B5ho8dzX3NBVsEu/Barron/CSI6mZC rQN9MsDq1exMKDgKI3WU4uUIQVOAk0ZaU1MU/oeIQncD6fwbYwTD/gizaQmXyUd69B6U/WU94r94yT+k nsN6YxlgfCnyHq+RjazsSAS+31+o3Mf6xvIiHLWVgE zN98vY9ct2YcvdLhDFPeoWEflZYhPCZgF7PSOcUc+QN14kgtSjOvaON/HKjPff6y8iz0KaYsp9aJqCrf Qoqyu4n7oP3+SEfJqayI/vlO2xS7JDkNyhLZQMeAfUjeyB9bIe+rWioQjGbnXBjwQLTsfD35EGHrB/l1 ZEurxJzN9ev0i4M7/FkKoxHdtRGUWw/7hkUIEgFHJ+ /w47V57L5XlM5q1rL8CMeInKA6llM5P78ya6nsI3VfuyfMeyaIWYOnmLCEs/4pxjnog8BN1VU8IsrQO7 4Tus41vEHSkph16RjSeQTqHuB6XCPWSBy8a+SKPOwOSJF5HJUrtVzQ9TPcW9B+oOGfo4NqNbIMttv7kz eXs779VR4mfBfJvGah/CngrsQoLB604k1EJYa6jiR2 CUR8LOo1LGAFTlOU1nL7xKnNE02so1tyvEbHD+JSfFI5cClrfZp6o1VmItt6TzEVU0ZQf2VF/JeTJ5xC mPfTw1gpoC/lgxfOpoKOQtJugSsEEIA7w9ThAI4vKhk57xO/R4camegeTh25vciOCR92gNndDCxGzAvT VxlNCq1cRLrRSccIx5sjdTniXTVlKWsrNpVFgF3dB0 pMqRK7/1+03vVI45mWj9pbtweU9lqcZ7jLpT/uvcL+dOFloN/gay7IYN0usVEhpCI6NrkRRxniIRCR48 R5m+tqEAntpjOJ8haMHFxd7EmGIDhMqrkSPG3WAvtM+LV5hUY/Director Smb Sales/7tTkhpUCwM99+8rSdERz4wdbd8L [file] cHR9xk40XVC/+v3oGw8qOd0scE6gThfk5cAk2IvXS3KhhN8ZkBr/crosstie inspector/4riGefJ++u6J/Q5LDxjXGOgd [file] 6Hz6JFsdi01mrYuoTWh2pyD+GI8rlR39aPvlxm481dTwMy5IXjj4o2pRjVpPfz/EDGER TECHNICIAN/SE2BLQo+f0RidO [file] GREASE AND TALLOW PUMPER+1Hp32Vn3d42lW81vUjoPTlLh01ePUnmX+IwIQriRlawMRefcsUFT8ErEFF0/Hk8BXrGerjF7ktoJ/ [file] [facility]/vbDZ8OBwkk43J7klV3ofkGxxz2WufbKCg736xt9Z/gd849sOZfNtEysDT5VoBXVXKCKGOhwCac6l [file] +mqsQ9749nDtSsGY/688xKoZJ2ylqqWBhcBY0+R [file] Gc4+sry+[place]/63LsnX3r9G1BLVOh0mDONzTSSQkzVqmErfznDKBcWn81ohjPkCz6XgJiFAihBTTnAUpRj 84wBxKKw9ea/KRCtTAYDRbdBRoH1qp3n4nAuVakN7rPXmrXtnn6s7kX+g1PuN5Zp8rWaSX9NPCxkr1+n veiVg1QvrhNAq1u9ePDV7ODjnIqZ2oSwToelm1IB4O iZ9rU42laBapkOlwxU505fM8cYFeCWw1HvyEiVyYg7bnCZncQAB0rhkMdC8Vd+wgFoa8ypMlE+c2HK2o AbLJw5lzm/HY919u9rLB3+LzoDxwNQND2oJ66D4RGpgOlvA4hPr7UTARhgCCG3kv3+1m+lfm9ZdihZNY K+/4QVTnc2QkrVyNuy2fPD/w06sm8N2q5v+6WGWP8K hkmSqX32rb2TJeF+RHeHnlCl2OkdrvxnAIDnvYi5/DFw8gITjPyCO5yQwlcHqXoGxD42c9Fe58d+3NWQ mukLxCulK6vho6ZQ9JtQHtTo/zXgUjy3DcDkwDCIhnyh5gDSSKsr7GYvqIClR+yGi+I4UwmhpHDj5V6+ Dijugl3pwLccUb/p+BVRSG3nDL427ucyYT61DVGmUj NNE7O9GOFLnPqkuJL4hD6nmT05nkkCb9LYKi/9LjA9wNFZAQ1w67Wy3ca2qVOzcP/G6lHI35S+R04s87 MxJQICn3v6atW2I5Fse/ELZOls/guidance director+HPDytPgK1d0WHLkl/N1HWzevb4yRTiM9dXhVFQA5UsI746eGl [file] [facility] kGBZOsddyN4/rScXysvqwwoqMcFQaVzWar+CobjzQQi7+p2l6AJEKHeDp3T605BXNS6WdZ5wEoAYn2V4 qy0lV7ilu86/FzR7m0hROc+Fmnasi+ln4N2CRsE2Py q//rSBZffv/XkbS6/vTmCzZoaSSqcfBIx2rgQ27ADubqV0lJQId/8o6IIjE22q9qKkktoQ99AV+elMf1 Bw/oS3KANqmZpBunWwClQ0yx4noOLaXrh9w4wa3/AiIUCQfVOhx2GNpi87CL+spCNousr21Bv1ql/Bang [file] [facility]mn5lKEK3TFH+oIByreNeabrxEla1AMmRWs [file] XZe3UeE8IChB65bpKGkL63Aq8vc765m+grain spouter+4mXfm8+IGuVp0lADas7lWh8CATmdhu8ZX/IyjPSRfvsS [file] DRShGNVXADRIXMKRAdSNEVG4TVPdXaLpZn3xT1Ugd8 QhZINgLZMbIE3uexIuDKDcLj4QlWorYRKrB4T4cAQxN3oRPAQkJxReBVY6MMHoNu3exJLwWK0GCwocO9 BgYBBmYASSXGDSAkx+WVIF54ChqiBVVRqiANVfYUYbBSVroYjFAmzvfMBmSLnfWZtAnazRqAszCvu8V9 I2uYPNJqZyMz7IQMmtHPBKc16C2o0CAJ2zv7BzWNLp DGtiubNrWgnTQKtcaIFvbQhrSEQCSeM7VHpfMQhATfHqLB5F ID Date Data Source [id number] 12/22/2020 12:26:00 PM EDT [facility] Name: ANGELIA ARTHUR : 1965 Age/Sex: 54F Ordering Provider: NGUYEN Marroquin Med Rec #: [id number] Reg Status: DEP REF Room #: Date of Service: 12/22/20 Report Number: [id number] cc:Valerie Tarango MD; NGUYEN Marroquin [facility] [id number] XRP/XR Chest 2 View [Pa & Lat] [...] Date/Time: 12/22/20 1053 Transcribed Date/Time: 12/22/20 1226 Associate Creative Director: UMBERTO Name Value Range Interpretation Code Description Data Ekta rce(s) Supporting Document(s) ID Date Data Source [id number] 12/20/2020 09:28:00 PM EST [facility] Name Value Range Interpretation Code Description Data Ekta rce(s) Supporting Document(s) Ferritin 23 ng/mL 11.1-264.0 Normal (applies to non-numeric resul ts) [facility] Test Performed By: [facility] [address] [place] [address] Director: Sandra Zuñiga MD ID Date Data Source [id number] 12/20/2020 09:35:00 PM [facility] Name Value Range Interpretation Code Description Data Ekta rce(s) Supporting Document(s) Ferritin result 23 ng/mL 11.1-264.0 Normal (applies to non-numeric results) [facility] Test Performed By: [facility] [address] [place] [address] Director: Sandra Zuñiga MD ID Date Data Source [id number] 12/11/2020 08:09:00 PM EST [facility] Name Value Range Interpretation Code Description Data Ekta rce(s) Supporting Document(s) White Blood Count 4.8-10.8 Above high normal [facility] Red Blood Count 3.68-5.22 Normal (applies to non-numeric results) [facility] Hemoglobin 11.2-15.7 Normal (applies to non-numeric resul ts) [facility] Hematocrit 34.1-44.9 Normal (applies to non-numeric resul ts) [facility] Mean Corpuscular Volume 81-99 Below low normal [facility] Mean Corpuscular Hemoglobin 27.0-33.0 Below low normal [facility] Mean Corpuscular HGB Conc 32.0-36.0 Normal (applies to no n-numeric results) [facility] Red Cell Distribution Width 11.5-14.5 Above high normal [facility] Platelet Count 296 X10 3/uL 130-450 Normal (applies to non-numeric results) [facility] Mean Platelet Volume 9.5-12.7 Normal (applies to non-num salome results) [facility] Imm Grans% (AUTO) 0 % 0-2 Normal (applies to non-numeri c results) [facility] Neutrophils % (AUTO) 61 % 40-75 Normal (applies to non-num salome results) [facility] Lymphocytes % (AUTO) 31 % 21-46 Normal (applies to non-num salome results) [facility] Monocytes % (AUTO) 7 % 5-12 Normal (applies to non-numer ic results) [facility] Eosinophils % (AUTO) 1 % 1-5 Normal (applies to non-num salome results) [facility] Basophils % (AUTO) 0 % 0-1 Normal (applies to non-numer ic results) [facility] Imm Grans# (AUTO) 0.0-0.5 Normal (applies to non-numeri c results) [facility] Neutrophils # (AUTO) 1.5-8.1 Normal (applies to non-num salome results) [facility] Lymphocytes # (AUTO) 1.0-3.1 Above high normal [facility] Monocytes # (AUTO) 0.2-1.3 Normal (applies to non-numer ic results) [facility] Eosinophils# (AUTO) 0.0-0.5 Normal (applies to non-nume yahir results) [facility] Basophils # (AUTO) 0.0-0.1 Normal (applies to non-numer ic results) [facility] ID Date Data Source [id number] 12/11/2020 08:09:00 PM EST [facility] Name Value Range Interpretation Code Description Data Ekta rce(s) Supporting Document(s) Erythrocyte Sedimentation ESR 25 mm/hr 0-20 Above high normal [facility] ID Date Data Source [id number] 12/11/2020 03:50:00 PM EST [facility] Name Value Range Interpretation Code Description Data Ekta rce(s) Supporting Document(s) Sodium 142 mmol/L 137-145 Normal (applies to non-numeric resul ts) [facility] Potassium 3.5-5.1 Normal (applies to non-numeric resul ts) [facility] Chloride 107 mmol/L 98-112 Normal (applies to non-numeric resul ts) [facility] Carbon Dioxide CO2 22.0-33.0 Normal (applies to non-numer ic results) [facility] Anion Gap 4.0-11.0 Normal (applies to non-numeric resul ts) [facility] BUN 15 mg/dL 7-17 Normal (applies to non-numeric resul ts) [facility] Creatinine 0.70-1.20 Below low normal [facility] GFR >60 Normal (applies to non-numeric results) [facility] Result based on MDRD formula. Glucose Level 91 mg/dL 74-99 Normal (applies to non-numeric re sults) [facility] The reference range is only applicable w hen fasting. Calcium-Uncorrected 8.4-10.2 Normal (applies to non-nume yahir results) [facility] Corrected Calcium 8.4-10.2 Normal (applies to non-numeri c results) [facility] Bilirubin,Total 0.2-1.3 Normal (applies to non-numeric results) [facility] SGOT(AST) 23 U/L 14-36 Normal (applies to non-numeric resul ts) [facility] SGPT(ALT) 38 U/L 9-52 Normal (applies to non-numeric resul ts) [facility] Alkaline Phosphatase 112 U/L 38-126 Normal (applies to non-num salome results) [facility] can increase Alkaline Phosp le vels up to 2 times the normal adult value. Normal values for children and adolescents are 2 to 3 times the normal adult value. Total Protein 6.3-8.2 Normal (applies to non-numeric re sults) [facility] Albumin 3.5-5.0 Below low normal [facility] ID Date Data Source [id number] 12/11/2020 03:50:00 PM EST [facility] Name Value Range Interpretation Code Description Data Ekta rce(s) Supporting Document(s) C-Reactive Protein,Wide Range <3.00 Above high normal [facility] ID Date Data Source [id number] 12/06/2020 01:44:00 PM EST [facility] Name Value Range Interpretation Code Description Data Ekta rce(s) Supporting Document(s) SARS-CoV-2 RNA INHOUSE Negative Normal (applies to non-n umeric results) [facility] THIS IS A [facility] REPORTABLE COMMUNICABLE DISEASE. Testing was performed using the [employer] COVID-19 MDx Assay. This test has been [...] be found at the following links: Providers: https://www.fda.gov/media/299848/download Patients : https://www.fda.gov/media/551039/download THIS IS A [facility] REPORTABLE COMMUNICABLE DISEASE Negative results do not preclude SARS-CoV-2 infection and should not be used as the sole basis for patient management decisions. Negative results must be combined with clinical observations,patient history, and epidemiological information. ID Date Data Source [id number] 12/06/2020 07:02:00 AM EST [facility] Name Value Range Interpretation Code Description Data Ekta rce(s) Supporting Document(s) Respiratory specimen severe acute respir atory syndrome coronavirus 2 (SARS-CoV-2) RNA Negative (qualifier value) [facility] This lab was ordered by [facility] and reported by . ID Date Data Source [id number] 11/28/2020 08:38:00 AM EST [facility] Procedure Performed By: [facility] [address] [place] [address] Director: Asuncion Zuñiga MD Name Value Range Interpretation Code Description Data Ekta rce(s) Supporting Document(s) Urine Culture Normal (applies to non-numeric re sults) [facility] ID Date Data Source [id number] 11/26/2020 03:26:00 PM [facility] Name Value Range Interpretation Code Description Data Ekta rce(s) Supporting Document(s) Color,Urine Colorl-Dk Y Normal (applies to non-numeric res ults) [facility] Clarity,Urine Clear Normal (applies to non-numeric re sults) [facility] Specific [place],Urine 1.005-1.030 Normal (applies to non- numeric results) [facility] pH,Urine 5.0-8.0 Normal (applies to non-numeric resul ts) [facility] Protein,Urine Negative Normal (applies to non-numeric re sults) [facility] Glucose,Urine Negative Normal (applies to non-numeric re sults) [facility] Ketones,Urine Negative Normal (applies to non-numeric re sults) [facility] Blood,Urine Negative [facility] Bilirubin,Urine Negative Normal (applies to non-numeric results) [facility] Urobilinogen,Urine 0.2-1.0 Normal (applies to non-numer ic results) [facility] Leukocyte Esterase,Urine Negative Normal (applies to non -numeric results) [facility] Nitrite,Urine Negative Normal (applies to non-numeric re sults) [facility] RBC,Urine None Seen [facility] WBC,Urine None Seen Normal (applies to non-numeric resul ts) [facility] Casts,Urine None Seen Normal (applies to non-numeric resu lts) [facility] Squamous Cells,Urine None Seen [facility] Bacteria,Urine None Seen Normal (applies to non-numeric r esults) [facility] ID Date Data Source [id number] 11/15/2020 10:24:00 AM [facility] Name: ANGELIA ARTHUR : 1965 Age/Sex: 54F Ordering Provider: Nam Ryder MD Med Rec #: [id number] Reg Status: DEP REF Room #: Date of Service: 11/14/20 Report Number: [id number] cc:Valerie Tarango MD; Nam Ryder MD Send Report To: [id number] XRP/XR Chest 1 View [Pa OR Ap] Reason for exam: VENOUS ACCESS PORT CHECK FINDINGS: Left Tjzpye-s-Twni catheter tip identified with the tip in [...] Date/Time: 11/14/20 1701 Transcribed Date/Time: 11/15/20 1024 Associate Creative Director: JHONNY Name Value Range Interpretation Code Description Data Ekta rce(s) Supporting Document(s) ID Date Data Source [id number] 11/14/2020 05:06:00 PM [facility] Name Value Range Interpretation Code Description Data Ekta rce(s) Supporting Document(s) Erythrocyte Sedimentation ESR 27 mm/hr 0-20 Above high normal [facility] ID Date Data Source [id number] 11/14/2020 05:06:00 PM [facility] Name Value Range Interpretation Code Description Data Ekta rce(s) Supporting Document(s) White Blood Count 4.8-10.8 Normal (applies to non-numeri c results) [facility] Red Blood Count 3.68-5.22 Normal (applies to non-numeric results) [facility] Hemoglobin 11.2-15.7 Normal (applies to non-numeric resul ts) [facility] Hematocrit 34.1-44.9 Normal (applies to non-numeric resul ts) [facility] Mean Corpuscular Volume 81-99 Below low normal [facility] Mean Corpuscular Hemoglobin 27.0-33.0 Below low normal [facility] Mean Corpuscular HGB Conc 32.0-36.0 Normal (applies to no n-numeric results) [facility] Red Cell Distribution Width 11.5-14.5 Above high normal [facility] Platelet Count 329 X10 3/uL 130-450 Normal (applies to non-numeric results) [facility] Mean Platelet Volume 9.5-12.7 Normal (applies to non-num salome results) [facility] Imm Grans% (AUTO) 0 % 0-2 Normal (applies to non-numeri c results) [facility] Neutrophils % (AUTO) 60 % 40-75 Normal (applies to non-num salome results) [facility] Lymphocytes % (AUTO) 32 % 21-46 Normal (applies to non-num salome results) [facility] Monocytes % (AUTO) 6 % 5-12 Normal (applies to non-numer ic results) [facility] Eosinophils % (AUTO) 1 % 1-5 Normal (applies to non-num salome results) [facility] Basophils % (AUTO) 1 % 0-1 Normal (applies to non-numer ic results) [facility] Imm Grans# (AUTO) 0.0-0.5 Normal (applies to non-numeri c results) [facility] Neutrophils # (AUTO) 1.5-8.1 Normal (applies to non-num salome results) [facility] Lymphocytes # (AUTO) 1.0-3.1 Above high normal [facility] Monocytes # (AUTO) 0.2-1.3 Normal (applies to non-numer ic results) [facility] Eosinophils# (AUTO) 0.0-0.5 Normal (applies to non-nume yahir results) [facility] Basophils # (AUTO) 0.0-0.1 Normal (applies to non-numer ic results) [facility] ID Date Data Source [id number] 11/14/2020 12:33:00 PM EST [facility] Name Value Range Interpretation Code Description Data Ekta rce(s) Supporting Document(s) Sodium 140 mmol/L 137-145 Normal (applies to non-numeric resul ts) [facility] Potassium 3.5-5.1 Normal (applies to non-numeric resul ts) [facility] Chloride 108 mmol/L 98-112 Normal (applies to non-numeric resul ts) [facility] Carbon Dioxide CO2 22.0-33.0 Normal (applies to non-numer ic results) [facility] Anion Gap 4.0-11.0 Normal (applies to non-numeric resul ts) [facility] BUN 18 mg/dL 7-17 Above high normal [facility] Creatinine 0.70-1.20 Below low normal [facility] GFR >60 Normal (applies to non-numeric results) [facility] Result based on MDRD formula. Glucose Level 96 mg/dL 74-99 Normal (applies to non-numeric re sults) [facility] The reference range is only applicable w hen fasting. Calcium-Uncorrected 8.4-10.2 Normal (applies to non-nume yahir results) [facility] Corrected Calcium 8.4-10.2 Normal (applies to non-numeri c results) [facility] Bilirubin,Total 0.2-1.3 Normal (applies to non-numeric results) [facility] SGOT(AST) 26 U/L 14-36 Normal (applies to non-numeric resul ts) [facility] SGPT(ALT) 44 U/L 9-52 Normal (applies to non-numeric resul ts) [facility] Alkaline Phosphatase 127 U/L 38-126 Above high normal [facility] can increase Alkaline Phosp le vels up to 2 times the normal adult value. Normal values for children and adolescents are 2 to 3 times the normal adult value. Total Protein 6.3-8.2 Normal (applies to non-numeric re sults) [facility] Albumin 3.5-5.0 Normal (applies to non-numeric resul ts) [facility] ID Date Data Source [id number] 11/14/2020 12:33:00 PM EST [facility] Name Value Range Interpretation Code Description Data Ekta rce(s) Supporting Document(s) C-Reactive Protein,Wide Range <3.00 Above high normal [facility] ID Date Data Source [id number] 11/08/2020 02:04:00 PM EST [facility] Name Value Range Interpretation Code Description Data Ekta rce(s) Supporting Document(s) SARS-CoV-2 RNA INHOUSE Negative Normal (applies to non-n umeric results) [facility] THIS IS A [facility] REPORTABLE COMMUNICABLE DISEASE. Testing was performed using the [employer] COVID-19 MDx Assay. This test has been [...] be found at the following links: Providers: https://www.fda.gov/media/381556/download Patients : https://www.fda.gov/media/610121/download THIS IS A [facility] REPORTABLE COMMUNICABLE DISEASE Negative results do not preclude SARS-CoV-2 infection and should not be used as the sole basis for patient management decisions. Negative results must be combined with clinical observations,patient history, and epidemiological information. ID Date Data Source [id number] 11/07/2020 10:02:00 AM [facility] Name Value Range Interpretation Code Description Data Ekta rce(s) Supporting Document(s) Respiratory specimen severe acute respir atory syndrome coronavirus 2 (SARS-CoV-2) RNA Negative (qualifier value) [facility] This lab was ordered by [facility] and reported by . ID Date Data Source [id number] 11/02/2020 10:22:00 AM [facility] Name: ANGELIA ARTHUR [facility] Rec #: [id number] : 1965 Age/Sex: 54F Date of Service: 11/02/20 DISPOSITION SUMMARY Discharge Summary [facility] Name:Angelia [facility] Age:54 yrs [...] done on Nov.18. <span> You may use [id number] Tylenol and ibuprofen for pain control at [...] rce(s) Supporting Document(s) ID Date Data Source [id number] 11/02/2020 10:22:00 AM [facility] Name: ANGELIA ARTHUR [facility] Rec #: [id number] : 1965 Age/Sex: 54F Date of Service: 11/02/20 PHYSICIAN CHART Physician Documentation [facility] Name: Angelia Arthur Age: 54 yrs [...] to communication noted, The patient speaks fluent Kazakh. ROS: 12:54 Constitutional: Negative for fever, chills, [...] 15:05 mmo 11/02 15:06 Interpretation: TSH 1.120. [facility] 11/02 10:58 Order name: Free T4 (free Thyroxine); Complete Time: 15:05 o 11/02 15:12 Interpretation: FreeT4 1.16. o 11/02 10:54 Order name: Cardiology EKG Interpretation - Choose Reason mmo for Test 11/02 10:58 Order name: Free T3 (tri-Iodothyronine); Complete Time: mmo 15:05 11/02 15:12 Interpretation: Free T3 2.78. o 11/02 11:09 Order name: Renal - US [facility] 11/02 11:31 Order name: Ct Abdomen & Pelvis with Con o 11/02 11:31 Order name: Beta Hcg,Qualitative; Complete Time: 14:56 o 11/02 14:56 Interpretation: Beta HCG,Screen Negative. [facility] 11/02 10:54 Order name: Collect Urine [...] rce(s) Supporting Document(s) ID Date Data Source [id number] 11/02/2020 10:22:00 AM [facility] Name: ANGELIA ARTHUR [facility] Rec #: [id number] : 1965 Age/Sex: 54F Date of Service: 11/02/[address] Nurse's Notes [facility] Name: Angelia Arthur Age: 54 yrs [...] to communication noted, The patient speaks fluent Kazakh. Vital Signs: 10:33 BP 210 / 100; [...] reach, sj Side rails up X 1. color television console monitor on. Pulse on is on. NIBP [...] Name Value Range Interpretation Code Description Data [facility] rce(s) Supporting Document(s) ID Date Data Source [id number] 11/02/2020 03:02:00 PM EST [facility] Name Value Range Interpretation Code Description Data [facility] rce(s) Supporting Document(s) Sodium 138 mmol/L 137-145 Normal (applies to non-numeric resul ts) [facility] Potassium 3.5-5.1 Normal (applies to non-numeric resul ts) [facility] Chloride 108 mmol/L 98-112 Normal (applies to non-numeric resul ts) [facility] Carbon Dioxide CO2 22.0-33.0 Normal (applies to non-numer ic results) [facility] Anion Gap 4.0-11.0 Below low normal [facility] BUN 13 mg/dL 7-17 Normal (applies to non-numeric resul ts) [facility] Creatinine 0.70-1.20 Below low normal [facility] GFR >60 Normal (applies to non-numeric results) [facility] Result based on MDRD formula. Glucose Level 82 mg/dL 74-99 Normal (applies to non-numeric re sults) [facility] The reference range is only applicable w hen fasting. Calcium-Uncorrected 8.4-10.2 Normal (applies to non-nume yahir results) [facility] Corrected Calcium 8.4-10.2 Normal (applies to non-numeri c results) [facility] Bilirubin,Total 0.2-1.3 Normal (applies to non-numeric results) [facility] SGOT(AST) 15 U/L 14-36 Normal (applies to non-numeric resul ts) [facility] SGPT(ALT) 40 U/L 9-52 Normal (applies to non-numeric resul ts) [facility] Alkaline Phosphatase 109 U/L 38-126 Normal (applies to non-num salome results) [facility] can increase Alkaline Phosp le vels up to 2 times the normal adult value. Normal values for children and adolescents are 2 to 3 times the normal adult value. Total Protein 6.3-8.2 Normal (applies to non-numeric re sults) [facility] Albumin 3.5-5.0 Below low normal [facility] ID Date Data Source [id number] 11/02/2020 03:02:00 PM EST [facility] Name Value Range Interpretation Code Description Data Ekta rce(s) Supporting Document(s) Lipase 99 U/L 73-393 Normal (applies to non-numeric resul ts) [facility] ID Date Data Source [id number] 11/02/2020 03:00:00 PM [facility] Name Value Range Interpretation Code Description Data Ekta rce(s) Supporting Document(s) Free T4 (Free Thyroxine) 0.76-1.46 Normal (applies to non -numeric results) [facility] ID Date Data Source [id number] 11/02/2020 03:00:00 PM [facility] Name Value Range Interpretation Code Description Data Ekta rce(s) Supporting Document(s) Free T3 2.18-3.98 Normal (applies to non-numeric resul ts) [facility] ID Date Data Source [id number] 11/02/2020 03:00:00 PM [facility] Value Range Interpretation Code Description Data Ekta rce(s) Supporting Document(s) Thyroid Stimulate Hormone TSH 0.358-3.740 No rmal (applies to non-numeric results) [facility] ID Date Data Source [id number] 11/02/2020 02:38:00 PM EST [facility] Name Value Range Interpretation Code Description Data Ekta rce(s) Supporting Document(s) Beta HCG Screen,Qualitative Negative Normal (appli es to non-numeric results) [facility] ID Date Data Source [id number] 11/03/2020 10:12:00 AM [facility] Name: ANGELIA ARTHUR : 1965 Age/Sex: 54F Ordering Provider: NGUYEN Abbott Med Rec #: [id number] Reg Status: [facility] Room #: Date of Service: 11/02/20 Report Number: [id number] cc:Valerie Tarango MD Send Report To: [id number] CT/CT Abdomen & Pelvis w Con Reason [...] Date/Time: 11/02/20 1407 Transcribed Date/Time: 11/03/20 1012 Associate Creative Director: CAMPOS Name Value Range Interpretation Code Description Data Ekta rce(s) Supporting Document(s) ID Date Data Source [id number] 11/02/2020 05:07:00 PM [facility] Name: ANGELIA ARTHUR : 1965 Age/Sex: 54F Ordering Provider: NGUYEN Abbott Med Rec #: [id number] [facility] Room #: Date of Service: 11/02/20 Report Number: [id number] cc:Valerie Tarango MD; Nancy Green MD; NGUYEN Abbott Send Report To: [id number] US/US Renal Ultrasound Reason for exam: LEFT [...] Date/Time: 11/02/20 1235 Transcribed Date/Time: 11/02/20 1707 Associate Creative Director: RICARDO Name Value Range Interpretation Code Description Data Ekta rce(s) Supporting Document(s) ID Date Data Source [id number] 11/02/2020 01:31:00 PM EST [facility] Name Value Range Interpretation Code Description Data Ekta rce(s) Supporting Document(s) White Blood Count 4.8-10.8 Normal (applies to non-numeri c results) [facility] Red Blood Count 3.68-5.22 Normal (applies to non-numeric results) [facility] Hemoglobin 11.2-15.7 Normal (applies to non-numeric resul ts) [facility] Hematocrit 34.1-44.9 Normal (applies to non-numeric resul ts) [facility] Mean Corpuscular Volume 81-99 Below low normal [facility] Mean Corpuscular Hemoglobin 27.0-33.0 Below low normal [facility] Mean Corpuscular HGB Conc 32.0-36.0 Normal (applies to no n-numeric results) [facility] Red Cell Distribution Width 11.5-14.5 Above high normal [facility] Platelet Count 328 X10 3/uL 130-450 Normal (applies to non-numeric results) [facility] Mean Platelet Volume 9.5-12.7 Normal (applies to non-num salome results) [facility] Imm Grans% (AUTO) 0 % 0-2 Normal (applies to non-numeri c results) [facility] Neutrophils % (AUTO) 61 % 40-75 Normal (applies to non-num salome results) [facility] Lymphocytes % (AUTO) 32 % 21-46 Normal (applies to non-num salome results) [facility] Monocytes % (AUTO) 6 % 5-12 Normal (applies to non-numer ic results) [facility] Eosinophils % (AUTO) 1 % 1-5 Normal (applies to non-num salome results) [facility] Basophils % (AUTO) 0 % 0-1 Normal (applies to non-numer ic results) [facility] Imm Grans# (AUTO) 0.0-0.5 Normal (applies to non-numeri c results) [facility] Neutrophils # (AUTO) 1.5-8.1 Normal (applies to non-num salome results) [facility] Lymphocytes # (AUTO) 1.0-3.1 Above high normal [facility] Monocytes # (AUTO) 0.2-1.3 Normal (applies to non-numer ic results) [facility] Eosinophils# (AUTO) 0.0-0.5 Normal (applies to non-nume yahir results) [facility] Basophils # (AUTO) 0.0-0.1 Normal (applies to non-numer ic results) [facility] ID Date Data Source [id number] 11/02/2020 11:46:00 AM EST [facility] Name Value Range Interpretation Code Description Data Ekta rce(s) Supporting Document(s) Color,Urine Yellow Normal (applies to non-numeric resu lts) [facility] Clarity,Urine Clear Normal (applies to non-numeric re sults) [facility] Specific [place],Urine 1.001-1.030 Normal (applies to non- numeric results) [facility] PH,Urine 5.0-8.0 Normal (applies to non-numeric resul ts) [facility] Protein,Urine Negative Normal (applies to non-numeric re sults) [facility] Glucose,Urine (UA) Negative Normal (applies to non-numer ic results) [facility] Ketones,Urine Negative Normal (applies to non-numeric re sults) [facility] Blood,Urine Negative Normal (applies to non-numeric resu lts) [facility] Bilirubin,Urine Negative Normal (applies to non-numeric results) [facility] Urobilinogen,Urine Norm 0.2-1 Normal (applies to non-numer ic results) [facility] Leukocyte Esterase,Urine Negative Normal (applies to non -numeric results) [facility] Nitrite,Urine Negative Normal (applies to non-numeric re sults) [facility] ID Date Data Source [id number] 11/04/2020 06:09:[address] [facility] Name: ANGELIA ARTHUR : 1965 Age/Sex: 54F Ordering Provider: NGUYEN Abbott Med Rec #: [id number] Reg Status[facility] Room #: Date of Service: 11/02/20 Report Number: [id number] cc: Valerie Tarango MD; NGUYEN Abbott Send Report To: Reason for exam: ABDOMINAL PAIN SINUS RHYTHM LOW QRS VOLTAGE IN PRECORDIAL LEADS BORDERLINE ECG Physician Blow Torch Operator: Dr. Delmar Miller M.D. ECG HEART RATE: 88 /min ECG RR INTERVAL: 675 ms ECG P DURATION: 118 ms ECG QRS DURATION: 85 ms ECG ME INTERVAL: 162 ms ECG QT INTERVAL: 339 ms ECG QTC INTERVAL: 388 ms Q-T dispersion: ms ECG P AXIS: 47 deg ECG QRS AXIS: 44 deg ECG T AXIS: 43 deg REPORT SIGNATURE ON FILE 11/04/201808 Reported By: Delmar Miller MD <<Signature on File>> Exam Date/Time: 11/02/20 1041 Order #: [id number] Dictation Date/Time: 11/04/201808 Transcribed Date/Time: 11/04/201808 Associate Creative Director: VALDO Name Value Range Interpretation Code Description Data Ekta rce(s) Supporting Document(s) ID Date Data Source [id number] 10/24/2020 11:08:00 AM [facility] Name Value Range Interpretation Code Description Data Ekta rce(s) Supporting Document(s) Vitamin E result 5.5 - 17.0 Normal (applies to non-numeric results) [facility] ADDITIONAL INFORMATIO N This test was developed and its performance characteristics determined by [facility] in a manner consistent with CLIA requirements. This test has not been cleared or approved by the U.S. Food and Drug Administration. Test Performed by: [facility] [place] [address] Return Clerk: Willi Rendon M.D. Ph.D.; CLIA# [id number] ID Date Data Source [id number] 10/24/2020 11:08:00 AM [facility] Name Value Range Interpretation Code Description Data Ekta rce(s) Supporting Document(s) Vitamin K result 0.10-2.20 Normal (applies to non-numeric results) [facility] ADDITIONAL INFORMATIO N This test was developed and its performance characteristics determined by [facility] in a manner consistent with CLIA requirements. This test has not been cleared or approved by the U.S. Food and Drug Administration. Test Performed by: [facility] [place] [address] Return Clerk: Willi Rendon M.D. Ph.D.; CLIA# [id number] ID Date Data Source [id number] 10/22/2020 10:36:00 PM [facility] Value Range Interpretation Code Description Data Ekta rce(s) Supporting Document(s) Free Retinol(Vit A) result 32.5-78.0 Normal (applie s to non-numeric results) [facility] ADDITIONAL INFORMATIO N This test was developed and its performance characteristics determined by [facility] in a manner consistent with CLIA requirements. This test has not been cleared or approved by the U.S. Food and Drug Administration. Test Performed by: [facility] [place] [address] Return Clerk: Willi Rendon M.D. Ph.D.; CLIA# [id number] ID Date Data Source [id number] 10/18/2020 08:16:00 PM [facility] Name Value Range Interpretation Code Description Data Ekta rce(s) Supporting Document(s) Vitamin D,Total (25OH) 30.0-100.0 Below low normal [facility] Reference Range: <10 ng/mL: Deficien t 10-30 ng/mL: Insufficient 30-100 ng/mL: Sufficient >100 ng/mL: Toxicity possible ID Date Data Source [id number] 10/18/2020 03:27:00 PM [facility] Name Value Range Interpretation Code Description Data Ekta rce(s) Supporting Document(s) Vitamin B12 193-[address] [facility] ID Date Data Source [id number] 10/18/2020 03:27:00 PM [facility] Name Value Range Interpretation Code Description Data Ekta rce(s) Supporting Document(s) Thyroid Stimulate Hormone TSH 0.358-3.740 No rmal (applies to non-numeric results) [facility] ID Date Data Source [id number] 10/18/2020 02:45:00 PM [facility] Name Value Range Interpretation Code Description Data Ekta rce(s) Supporting Document(s) White Blood Count 4.8-10.8 Above high normal [facility] Red Blood Count 3.68-5.22 Normal (applies to non-numeric results) [facility] Hemoglobin 11.2-15.7 Normal (applies to non-numeric resul ts) [facility] Hematocrit 34.1-44.9 Normal (applies to non-numeric resul ts) [facility] Mean Corpuscular Volume 81-99 Below low normal [facility] Mean Corpuscular Hemoglobin 27.0-33.0 Normal (appli es to non-numeric results) [facility] Mean Corpuscular HGB Conc 32.0-36.0 Normal (applies to no n-numeric results) [facility] Red Cell Distribution Width 11.5-14.5 Above high normal [facility] Platelet Count 299 X10 3/uL 130-450 Normal (applies to non-numeric results) [facility] Mean Platelet Volume 9.5-12.7 Normal (applies to non-num salome results) [facility] Imm Grans% (AUTO) 0 % 0-2 Normal (applies to non-numeri c results) [facility] Neutrophils % (AUTO) 65 % 40-75 Normal (applies to non-num salome results) [facility] Lymphocytes % (AUTO) 26 % 21-46 Normal (applies to non-num salome results) [facility] Monocytes % (AUTO) 7 % 5-12 Normal (applies to non-numer ic results) [facility] Eosinophils % (AUTO) 1 % 1-5 Normal (applies to non-num salome results) [facility] Basophils % (AUTO) 0 % 0-1 Normal (applies to non-numer ic results) [facility] Imm Grans# (AUTO) 0.0-0.5 Normal (applies to non-numeri c results) [facility] Neutrophils # (AUTO) 1.5-8.1 Above high normal [facility] Lymphocytes # (AUTO) 1.0-3.1 Above high normal [facility] Monocytes # (AUTO) 0.2-1.3 Normal (applies to non-numer ic results) [facility] Eosinophils# (AUTO) 0.0-0.5 Normal (applies to non-nume yahir results) [facility] Basophils # (AUTO) 0.0-0.1 Normal (applies to non-numer ic results) [facility] ID Date Data Source [id number] 10/18/2020 02:45:00 PM EST [facility] Name Value Range Interpretation Code Description Data Ekta rce(s) Supporting Document(s) Erythrocyte Sedimentation ESR 10 mm/hr 0-20 No rmal (applies to non-numeric results) [facility] ID Date Data Source [id number] 10/18/2020 02:43:00 PM EST [facility] Name Value Range Interpretation Code Description Data Ekta rce(s) Supporting Document(s) Hemoglobin A1C % Less than 5.7% Above high normal [facility] HBA1C: Normal: Less than 5.7% Prediabetes: 5.7% to 6.4% Diabetes: 6.5% or higher HA1C % vs Estimated Average Glucose (eAG) % eAG % eAG 6% 126 mg/dL 10% 240 mg/dL 7% 154 mg/dL 11% 269 mg/dL 8% 183 mg/dL 12% 298 mg/dL 9% 212 mg/dL Reference: [employer], 2017 ID Date Data Source [id number] 10/18/2020 02:35:00 PM EST [facility] Name Value Range Interpretation Code Description Data Ekta rce(s) Supporting Document(s) Sodium 142 mmol/L 137-145 Normal (applies to non-numeric resul ts) [facility] Potassium 3.5-5.1 Normal (applies to non-numeric resul ts) [facility] Chloride 110 mmol/L 98-112 Normal (applies to non-numeric resul ts) [facility] Carbon Dioxide CO2 22.0-33.0 Normal (applies to non-numer ic results) [facility] Anion Gap 4.0-11.0 Normal (applies to non-numeric resul ts) [facility] BUN 15 mg/dL 7-17 Normal (applies to non-numeric resul ts) [facility] Creatinine 0.70-1.20 Below low normal [facility] GFR >60 Normal (applies to non-numeric results) [facility] Result based on MDRD formula. Glucose Level 82 mg/dL 74-99 Normal (applies to non-numeric re sults) [facility] The reference range is only applicable w hen fasting. Calcium-Uncorrected 8.4-10.2 Normal (applies to non-nume yahir results) [facility] Corrected Calcium 8.4-10.2 Normal (applies to non-numeri c results) [facility] Bilirubin,Total 0.2-1.3 Normal (applies to non-numeric results) [facility] SGOT(AST) 23 U/L 14-36 Normal (applies to non-numeric resul ts) [facility] SGPT(ALT) 40 U/L 9-52 Normal (applies to non-numeric resul ts) [facility] Alkaline Phosphatase 117 U/L 38-126 Normal (applies to non-num salome results) [facility] can increase Alkaline Phosp le vels up to 2 times the normal adult value. Normal values for children and adolescents are 2 to 3 times the normal adult value. Total Protein 6.3-8.2 Normal (applies to non-numeric re sults) [facility] Albumin 3.5-5.0 Below low normal [facility] ID Date Data Source [id number] 10/18/2020 02:35:00 PM [facility] Name Value Range Interpretation Code Description Data Ekta rce(s) Supporting Document(s) C-Reactive Protein,Wide Range <3.00 Above high normal [facility] ID Date Data Source [id number] 10/16/2020 03:20:00 PM [facility] Name: ANGELIA ARTHUR [facility] Rec #: [id number] : 1965 Age/Sex: 54F Date of Service: 10/16/20 DISPOSITION SUMMARY Discharge Summary [facility] Name:Angelia [facility] Age:54 yrs [...] rce(s) Supporting Document(s) ID Date Data Source [id number] 10/16/2020 03:20:00 PM [facility] Name: ANGELIA ARTHUR [facility] Rec #: [id number] : 1965 Age/Sex: 54F Date of Service: 10/16/20 PHYSICIAN CHART Physician Documentation [facility] Name: Angelia Arthur Age: 54 yrs Sex: Female : 1965 Arrival Date: 10/16/2020 Time: 15:20 Bed EDRU-1 Private MD: Valerie Tarango L ED Physician Ondina Mcrae HPI: 10/16 16:06 This 54 yrs old Female presents to ER via [facility] with complaints of High Blood Pressure, Back Pain, Headache > 24hrs Old, Shortness Of Breath. 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 18:06 I reviewed Angelia's past history of pulmonary embolus: [facility] She developed a PE in 2017 after receiving IVIG therapy, although it was never determined whether that was related. She was on anticoagulants for several months which she has since discontinued. She was being worked up by hematology for clotting disorder, but says that all of the investigations were never completed.. 20:52 I reviewed past radiology studies: An x-ray of the L-spine [facility] 07/29/2021 showed degenerative joint disease. CT chest 05/10/2020 was normal. Gallbladder ultrasound 03/04/2019 showed a normal gallbladder with no stones.. FINISH OPENER: 15:30 LMP N/A - Post-menopause cmm Historical: [...] is . - Social History: Preferred Language: Kazakh Smoking status (Tobacco): Patient states they are a former tobacco smoker, quit smoking 20 years ago. ROS: 16:43 Chest See HPI. Cardiovascular: See HPI. Respiratory: See bjh HPI. Back: See HPI. Neuro: See HPI. All other systems are negative. Exam: 16:43 Head/Face: Normocephalic, atraumatic. Eyes: Pupils equal [facility] round and reactive to light, extra-ocular motions [...] Other Rate 87 bpm. Normal axis. Normal ME 159 ms, normal QRS 88 ms, normal QTC 392 ms. There is no abnormal ST elevation or depression and T waves are normal. No premature beats. There is no old EKG available for comparison at this time. 20:39 Patient medically screened. [facility] 20:43 Data reviewed: vital signs, nurses notes, lab test [facility] result(s), EKG, radiologic studies, CT scan, plain [...] Order name: Comprehensive Metabolic Prof.; Complete Time: [facility] 17:55 10/16 17:55 Interpretation: Abnormal: CREAT 0.67; ALK PHOS 129. [facility] 10/16 16:34 Order name: Lip ase; Complete Time: 17:55 [facility] 10/16 17:55 Interpretation: Within normal limits: LIP 109. [facility] 10/16 16:34 Order name: MG (Magnesium); Complete Time: 17:55 [facility] 10/16 17:55 Interpretation: Within normal limits: MG 2.00. [facility] 10/16 16:34 Order name: Partial Thromboplastin Time; Complete Time: [facility] 17:55 10/16 17:56 Interpretation: Within normal limits: PTT 27.6. [facility] 10/16 16:34 Order name: Prothrombin Time; Complete Time: 17:55 [facility] 10/16 17:56 Interpretation: Within normal limits: PT 11.9. [facility] 10/16 16:34 Order name: Troponin I; Complete Time: 17:56 [facility] 10/16 17:56 Interpretation: Within normal limits: TROP I < 0.045. [facility] 10/16 16:34 Order name: CXR Portable (Chest Pain); Complete Time: 17:40 [facility] 10/16 16:34 Order name: Emergency Room EKG Order - Use EKG Work-Up [facility] /Quick Select; Complete Time: 16:46 10/16 16:34 Order name: Cardiology EKG Interpretation - Choose Reason [facility] for Test 10/16 16:34 Order name: Iv Saline Lock; Complete Time: 17:15 [facility] 10/16 18:05 Order name: CT Chest for PE with contrast (choose symptom); [facility] Complete Time: 21:50 10/16 21:50 Interpretation: No acute disease. [facility] 10/16 20:39 Order name: UA.; Complete Time: 09:58 [facility] 10/17 09:58 Interpretation: Within normal limits. [facility] 10/16 16:34 Order name: Place Patient On Monitor; Complete Time: 17:15 [facility] 10/16 16:38 Order name: Vital Signs - Recheck: Blood pressure only ; [facility] Complete Time: 17:15 10/16 20:39 Order name: Collect Urine - Clean Catch; Complete Time: [facility] 20:45 Dispensed Medications: 16:46 Drug: Ventolin 2 puffs [Ventolin HFA 90 mcg/actuation awr aerosol inhaler (2 puffs)] Route: Inhalation; 17:00 Follow up: Response: Symptoms have improved. 3 Disposition Summary: 10/16/20 20:39 Discharge Ordered Location: Home[facility]Self Care [facility] Condition: Good [facility] Diagnosis - Acute Upper Back Pain, Thoracic h Followup: [facility] - With: Valerie Tarango MD - When: As needed - Reason: If symptoms persist Followup: [facility] - With: Emergency Department - When: As needed - Reason: Worsening of condition Discharge Instructions: - Discharge Summary Sheet [facility] - Thoracic Strain [facility] Fo yloanda: - Medication Reconciliation [facility] Signatures: Dispatcher [employer] Jeannette Basilio RN RN cmm Healey, Brenda, MD MD [facility] Ainsley Servin RN RN jc3 William Mckenna RN RN awr Lent, Meade, NP NP mel Corrections: (The following items were deleted from the chart) 15:39 15:34 PMHx: rls; cmm cmm 16:42 16:06 PMH PSORIATIC ARTHRITIS, CHRONIC BACK PAIN S/P SPINAL [facility] FUSION, LUPUS, MYASTHENIA GRAVIS, GERD, LIVER FAILURE, PE. . [facility] 16:43 16:06 PMH PSORIATIC ARTHRITIS, CHRONIC BACK [...] was sent to the ER by her visual artist after several blood pressure readings at home [...] catheterization 4 to 5 years ago in [place]: According to the patient there were no vessel blockages and she did not require stents.. [facility] Name Value Range Interpretation Code Description Data Ekta rce(s) Supporting Document(s) ID Date Data Source [id number] 10/16/2020 03:20:00 PM [facility] Name: ANGELIA ARTHUR [facility] Rec #: [id number] : 1965 Age/Sex: 54F Date of Service: 10/16/[address] Nurse's Notes [facility] Name: Angelia Arthur Age: 54 yrs Sex: Female : 1965 Arrival Date: 10/16/2020 Time: 15:20 Bed EDRU-1 Private MD: Valerie Tarango L Diagnosis: Acute Upper Back Pain, Thoracic Presentation: 10/16 15:21 Transition of care: patient was not received from another [facility] setting of care. Presenting complaint: Patient states - States is Covid Positive . States Her Blood Pressure was 188/111 on phone call with Her Rod Placer and was told to come to ED [...] SOB present. 15:21 Method Of Arrival: Walk-In [facility] 15:21 Acuity: Urgent - 3 [facility] Triage Assessment: 15:24 Suicide Screening: Have you had thoughts of harming [facility] yourself or others? No. The patient [...] patient states the pain began 1weeks ago. FINISH OPENER: 15:30 LMP N/A - Post- menopause cmm [...] is . - Social History: Preferred Language: Kazakh Smoking status (Tobacco): Patient states they are [...] no risk. Assessment: 15:54 See Triage Assessment. [facility] Vital Signs: 15:30 BP [...] 15:21 Valerie Tarango MD is Private Physician. [facility] 15:24 Triage completed. [facility] 15:24 Jonathan Hahn NP is PHCP. [...] 15:45 Ondina Mcrae MD is Attending Physician. [facility] 16:40 An EKG was obtained and reviewed by Ondina Mcrae MD. awr 16:46 Radiology: a portable X-ray was completed at 16:46. awr 16:46 Cardiology EKG Interpretation - Choose Reason for Test Sent.awr 16:46 CXR Portable (Chest Pain) Sent. awr 17:14 Labs drawn by ED staff. Inserted peripheral IV: 20 gauge in awr palmar aspect of left wrist and blood collected. 17:15 color television console monitor on. awr 18:55 Radiology: The patient went to get his/her CT at 18:55. jc3 18:55 No procedures ordered. jc3 18:55 CT Chest for PE with contrast (choose symptom) Sent. jc3 19:12 Radiology: Patient returned from CT at 19:12. jc3 20:00 Diet: Patient given water. 3 20:38 Valerie Tarango MD is Referral Physician. [facility] 20:42 Urine collected. Clean catch specimen. jc3 20:54 Discontinued IV lock intact, bleeding controlled, pressure jc3 dressing applied, No redness/swelling at site. Administered Medications: 16:46 Drug: Ventolin 2 puffs [Ventolin HFA 90 mcg/actuation awr aerosol inhaler (2 puffs)] Route: Inhalation; 17:00 Follow up: Response: Symptoms have improved. 3 Outcome: 20:39 Discharge ordered by MD. [facility] 20:54 Reassessment: No Change in symptoms. 3 [...] RN RN cmm Healey, Brenda, MD MD [facility] Ainsley Servin RN RN jc3 Destiney Arrieta RN RN md1 William Mckenna RN RN awr Lent, Meade, EDGER TECHNICIAN EDGER TECHNICIAN darcy Groves, Bessie tb6 Corrections: (The following items were deleted from the chart) 10/16 15:27 15:21 Presenting complaint: Patient states - States is cmm Covid Positive . States Her Blood Pressure was 18 8/111 on phone call with Her Rod Placer and was told to come to ED for evaluation. States is short of breath also cmm 15:39 15:34 PMHx: rls; cmm cmm Name Value Range Interpretation Code Description Data Ekta rce(s) Supporting Document(s) ID Date Data Source [id number] 10/16/2020 10:58:00 PM [facility] Name Value Range Interpretation Code Description Data Ekta rce(s) Supporting Document(s) Color,Urine Yellow Normal (applies to non-numeric resu lts) [facility] Clarity,Urine Clear Normal (applies to non-numeric re sults) [facility] Specific [place],Urine 1.001-1.030 Normal (applies to non- numeric results) [facility] PH,Urine 5.0-8.0 Normal (applies to non-numeric resul ts) [facility] Protein,Urine Negative Normal (applies to non-numeric re sults) [facility] Glucose,Urine (UA) Negative Normal (applies to non-numer ic results) [facility] Ketones,Urine Negative Normal (applies to non-numeric re sults) [facility] Blood,Urine Negative Normal (applies to non-numeric resu lts) [facility] Bilirubin,Urine Negative Normal (applies to non-numeric results) [facility] Urobilinogen,Urine Norm 0.2-1 Normal (applies to non-numer ic results) [facility] Leukocyte Esterase,Urine Negative Normal (applies to non -numeric results) [facility] Nitrite,Urine Negative Normal (applies to non-numeric re sults) [facility] ID Date Data Source [id number] 10/17/2020 01:33:[address] [facility] Hospital Name: ANGELIA ARTHUR : 1965 Age/Sex: 54F Ordering Provider: Ondina Mcrae MD Med Rec #: [id number] Reg Status[facility] Room #: Date of Service: 10/16/20 Report Number: [id number] cc:Ondina Mcrae MD; Valerie Tarango MD Send Report To: [id number] CT/CT Chest for PE with Contrast Reason [...] Dictation Date/Time: 10/16/202028 Transcribed Date/Time: 10/17/20 1333 Associate Creative Director: LUAN Name Value Range Interpretation Code Description Data Ekta rce(s) Supporting Document(s) ID Date Data Source [id number] 10/16/2020 05:56:00 PM [facility] Value Range Interpretation Code Description Data Ekta rce(s) Supporting Document(s) Troponin I 0.000-0.045 Normal (applies to non-numeric resu lts) [facility] ID Date Data Source [id number] 10/16/2020 05:54:00 PM [facility] Name Value Range Interpretation Code Description Data Ekta rce(s) Supporting Document(s) PT 9.4-12.5 Normal (applies to non-numeric results) [facility] INR Normal (applies to non-numeric results) [facility] The use of the INR is restricted to roger ents on stable oral anticoagulant. Therapeutic Range: 2.0-3.0 High Risk Values: 2.5-3.5 ID Date Data Source [id number] 10/16/2020 05:54:00 PM [facility] Name Value Range Interpretation Code Description Data Ekta rce(s) Supporting Document(s) PTT 25.1-36.5 Normal (applies to non-numeric resul ts) [facility] ID Date Data Source [id number] 10/16/2020 05:54:00 PM EST [facility] Name Value Range Interpretation Code Description Data Ekta rce(s) Supporting Document(s) Sodium 140 mmol/L 137-145 Normal (applies to non-numeric resul ts) [facility] Potassium 3.5-5.1 Normal (applies to non-numeric resul ts) [facility] Chloride 107 mmol/L 98-112 Normal (applies to non-numeric resul ts) [facility] Carbon Dioxide CO2 22.0-33.0 Normal (applies to non-numer ic results) [facility] Anion Gap 4.0-11.0 Normal (applies to non-numeric resul ts) [facility] BUN 16 mg/dL 7-17 Normal (applies to non-numeric resul ts) [facility] Creatinine 0.70-1.20 Below low normal [facility] GFR >60 Normal (applies to non-numeric results) [facility] Result based on MDRD formula. Glucose Level 86 mg/dL 74-99 Normal (applies to non-numeric re sults) [facility] The reference range is only applicable w hen fasting. Calcium-Uncorrected 8.4-10.2 Normal (applies to non-nume yahir results) [facility] Corrected Calcium 8.4-10.2 Normal (applies to non-numeri c results) [facility] Bilirubin,Total 0.2-1.3 Normal (applies to non-numeric results) [facility] SGOT(AST) 25 U/L 14-36 Normal (applies to non-numeric resul ts) [facility] SGPT(ALT) 41 U/L 9-52 Normal (applies to non-numeric resul ts) [facility] Alkaline Phosphatase 129 U/L 38-126 Above high normal [facility] can increase Alkaline Phosp le vels up to 2 times the normal adult value. Normal values for children and adolescents are 2 to 3 times the normal adult value. Total Protein 6.3-8.2 Normal (applies to non-numeric re sults) [facility] Albumin 3.5-5.0 Normal (applies to non-numeric resul ts) [facility] ID Date Data Source [id number] 10/16/2020 05:54:00 PM EST [facility] Name Value Range Interpretation Code Description Data Ekta rce(s) Supporting Document(s) Magnesium 1.80-2.40 Normal (applies to non-numeric resul ts) [facility] ID Date Data Source [id number] 10/16/2020 05:54:00 PM EST [facility] Name Value Range Interpretation Code Description Data Ekta rce(s) Supporting Document(s) Lipase 109 U/L 73-393 Normal (applies to non-numeric resul ts) [facility] ID Date Data Source [id number] 10/16/2020 05:38:00 PM EST [facility] Name Value Range Interpretation Code Description Data Ekta rce(s) Supporting Document(s) White Blood Count 4.8-10.8 Above high normal [facility] Red Blood Count 3.68-5.22 Normal (applies to non-numeric results) [facility] Hemoglobin 11.2-15.7 Normal (applies to non-numeric resul ts) [facility] Hematocrit 34.1-44.9 Normal (applies to non-numeric resul ts) [facility] Mean Corpuscular Volume 81-99 Below low normal [facility] Mean Corpuscular Hemoglobin 27.0-33.0 Below low normal [facility] Mean Corpuscular HGB Conc 32.0-36.0 Normal (applies to no n-numeric results) [facility] Red Cell Distribution Width 11.5-14.5 Above high normal [facility] Platelet Count 281 X10 3/uL 130-450 Normal (applies to non-numeric results) [facility] Mean Platelet Volume 9.5-12.7 Normal (applies to non-num salome results) [facility] Imm Grans% (AUTO) 1 % 0-2 Normal (applies to non-numeri c results) [facility] Neutrophils % (AUTO) 67 % 40-75 Normal (applies to non-num salome results) [facility] Lymphocytes % (AUTO) 26 % 21-46 Normal (applies to non-num salome results) [facility] Monocytes % (AUTO) 6 % 5-12 Normal (applies to non-numer ic results) [facility] Eosinophils % (AUTO) 1 % 1-5 Normal (applies to non-num salome results) [facility] Basophils % (AUTO) 0 % 0-1 Normal (applies to non-numer ic results) [facility] Imm Grans# (AUTO) 0.0-0.5 Normal (applies to non-numeri c results) [facility] Neutrophils # (AUTO) 1.5-8.1 Above high normal [facility] Lymphocytes # (AUTO) 1.0-3.1 Above high normal [facility] Monocytes # (AUTO) 0.2-1.3 Normal (applies to non-numer ic results) [facility] Eosinophils# (AUTO) 0.0-0.5 Normal (applies to non-nume yahir results) [facility] Basophils # (AUTO) 0.0-0.1 Normal (applies to non-numer ic results) [facility] ID Date Data Source [id number] 10/17/2020 01:26:00 PM [facility] Name: ANGELIA ARTHUR : 1965 Age/Sex: 54F Ordering Provider: Ondina Mcrae MD Med Rec #: [id number] Reg Status: [facility] ER Room #: Date of Service: 10/16/20 Report Number: [id number] cc:Valerie Tarango MD Send Report To: [id number] XRP/XR Chest Xray Portable Reason for exam: [...] Date/Time: 10/16/20 1722 Transcribed Date/Time: 10/17/20 1326 Associate Creative Director: CAMPOS Name Value Range Interpretation Code Description Data Ekta rce(s) Supporting Document(s) ID Date Data Source [id number] 10/17/2020 07:07:00 PM [facility] Name: ANGELIA ARTHUR : 1965 Age/Sex: 54F Ordering Provider: Ondina Mcrae MD Med Rec #: [id number] Reg Status[facility] Room #: Date of Service: 10/16/20 Report Number: [id number] cc: Ondina Mcrae MD; Valerie Tarango MD Send Report To: Reason for exam: Chest Pain SINUS RHYTHM LOW QRS VOLTAGE IN PRECORDIAL LEADS BORDERLINE ECG WARNING: DATA QUALITY MAY AFFECT INTERPRETATION LOW VOLTAGE IS NEW Physician Blow Torch Operator: Win Roberts M.D. ECG HEART RATE: 87 /min ECG RR INTERVAL: 682 ms ECG P DURATION: 111 ms ECG QRS DURATION: 88 ms ECG ME INTERVAL: 159 ms ECG QT INTERVAL: 347 ms ECG QTC INTERVAL: 394 ms Q-T dispersion: ms ECG P AXIS: 55 deg ECG QRS AXIS: 59 deg ECG T AXIS: 48 deg REPORT SIGNATURE ON FILE 10/17/20 1908 Reported By: Win Roberts MD <<Signature on File>> Exam Date/Time: 10/16/20 1640 Order #: [id number] Dictation Date/Time: 10/17/201906 Transcribed Date/Time: 10/17/201906 Associate Creative Director: VALDO Name Value Range Interpretation Code Description Data Ekta rce(s) Supporting Document(s) ID Date Data Source [id number] 10/14/2020 10:18:00 AM EST [facility] Name Value Range Interpretation Code Description Data Ekta rce(s) Supporting Document(s) Respiratory specimen severe acute respir atory syndrome coronavirus 2 (SARS-CoV-2) RNA [facility] This lab was ordered by [facility] and reported by . ID Date Data Source [id number] 10/08/2020 03:10:00 PM EST [facility] Name Value Range Interpretation Code Description Data Ekta rce(s) Supporting Document(s) SARS-CoV-2 RNA INHOUSE Negative [facility] THIS IS A [facility] REPORTABLE COMMUNICABLE DISEASE. Results called 10/08/20 1509,JOSE/STEPHANIE ALIS read back information to [email or web address] Testing was performed using the [employer] COVID-19 MDx Assay. This test has been [...] be found at the following links: Providers: https://www.fda.gov/media/167306/download Patients : https://www.fda.gov/media/016727/download THIS IS A [facility] REPORTABLE COMMUNICABLE DISEASE Positive results are indicative of the presence of NZDD-KjV-PPR; clinical correlation with patient history and other diagnostic information is necessary to determine patient infection status. The agent detected may not be the definite cause of disease. Positive results do not rule out bacterial infection or co-infection with other viruses. ID Date Data Source [id number] 09/24/2020 06:41:00 AM EST [facility] Name Value Range Interpretation Code Description Data Ekta rce(s) Supporting Document(s) Sodium 138 mmol/L 137-145 Normal (applies to non-numeric resul ts) [facility] Potassium 3.5-5.1 Normal (applies to non-numeric resul ts) [facility] Chloride 106 mmol/L 98-112 Normal (applies to non-numeric resul ts) [facility] Carbon Dioxide CO2 22.0-33.0 Normal (applies to non-numer ic results) [facility] Anion Gap 4.0-11.0 Normal (applies to non-numeric resul ts) [facility] BUN 17 mg/dL 7-17 Normal (applies to non-numeric resul ts) [facility] Creatinine 0.70-1.20 Below low normal [facility] GFR >60 Normal (applies to non-numeric results) [facility] Result based on MDRD formula. Glucose Level 91 mg/dL 74-99 Normal (applies to non-numeric re sults) [facility] The reference range is only applicable w hen fasting. Calcium-Uncorrected 8.4-10.2 Normal (applies to non-nume yahir results) [facility] Corrected Calcium 8.4-10.2 Normal (applies to non-numeri c results) [facility] Bilirubin,Total 0.2-1.3 Normal (applies to non-numeric results) [facility] SGOT(AST) 24 U/L 14-36 Normal (applies to non-numeric resul ts) [facility] SGPT(ALT) 43 U/L 9-52 Normal (applies to non-numeric resul ts) [facility] Alkaline Phosphatase 126 U/L 38-126 Normal (applies to non-num salome results) [facility] can increase Alkaline Phosp le vels up to 2 times the normal adult value. Normal values for children and adolescents are 2 to 3 times the normal adult value. Total Protein 6.3-8.2 Normal (applies to non-numeric re sults) [facility] Albumin 3.5-5.0 Normal (applies to non-numeric resul ts) [facility] ID Date Data Source [id number] 09/24/2020 06:41:00 AM EST [facility] Name Value Range Interpretation Code Description Data Ekta rce(s) Supporting Document(s) C-Reactive Protein,Wide Range <3.00 Above high normal [facility] ID Date Data Source [id number] 09/24/2020 06:41:00 AM EST [facility] Name Value Range Interpretation Code Description Data Ekta rce(s) Supporting Document(s) White Blood Count 4.8-10.8 Above high normal [facility] Red Blood Count 3.68-5.22 Normal (applies to non-numeric results) [facility] Hemoglobin 11.2-15.7 Normal (applies to non-numeric resul ts) [facility] Hematocrit 34.1-44.9 Normal (applies to non-numeric resul ts) [facility] Mean Corpuscular Volume 81-99 Below low normal [facility] Mean Corpuscular Hemoglobin 27.0-33.0 Below low normal [facility] Mean Corpuscular HGB Conc 32.0-36.0 Normal (applies to no n-numeric results) [facility] Red Cell Distribution Width 11.5-14.5 Above high normal [facility] Platelet Count 294 X10 3/uL 130-450 Normal (applies to non-numeric results) [facility] Mean Platelet Volume 9.5-12.7 Normal (applies to non-num salome results) [facility] Imm Grans% (AUTO) 1 % 0-2 Normal (applies to non-numeri c results) [facility] Neutrophils % (AUTO) 62 % 40-75 Normal (applies to non-num salome results) [facility] Lymphocytes % (AUTO) 29 % 21-46 Normal (applies to non-num salome results) [facility] Monocytes % (AUTO) 7 % 5-12 Normal (applies to non-numer ic results) [facility] Eosinophils % (AUTO) 1 % 1-5 Normal (applies to non-num salome results) [facility] Basophils % (AUTO) 0 % 0-1 Normal (applies to non-numer ic results) [facility] Imm Grans# (AUTO) 0.0-0.5 Normal (applies to non-numeri c results) [facility] Neutrophils # (AUTO) 1.5-8.1 Normal (applies to non-num salome results) [facility] Lymphocytes # (AUTO) 1.0-3.1 Above high normal [facility] Monocytes # (AUTO) 0.2-1.3 Normal (applies to non-numer ic results) [facility] Eosinophils# (AUTO) 0.0-0.5 Normal (applies to non-nume yahir results) [facility] Basophils # (AUTO) 0.0-0.1 Normal (applies to non-numer ic results) [facility] ID Date Data Source [id number] 09/24/2020 06:41:00 AM [facility] Name Value Range Interpretation Code Description Data Ekta rce(s) Supporting Document(s) Erythrocyte Sedimentation ESR 34 mm/hr 0-20 Above high normal [facility] ID Date Data Source [id number] 09/12/2020 09:24:00 AM [facility] Name: ANGELIA ARTHUR : 1965 Age/Sex: 54F Ordering Provider: LA Naidu Med Rec #: [id number] Reg Status: DEP REF Room #: Date of Service: 08/22/20 Report Number: [id number] cc:Valerie Tarango MD; LA Naidu Send Report To: [id number] XRP/XR Steroid Injection Hip Rt [id number] XRP/XR Fluoro Needle Placement Reason for exam: [...] Dictation Date/Time: 09/11/20 1558 Transcribed Date/Time: 09/12/2024 Associate Creative Director: CAMPOS Name Value Range Interpretation Code Description Data Ekta rce(s) Supporting Document(s) ID Date Data Source [id number] 09/12/2020 09:24:00 AM [facility] Name: ANGELIA ARTHUR : 1965 Age/Sex: 54F Ordering Provider: LA Naidu [facility] Rec #: [id number] Reg Status: DEP REF Room #: Date of Service: 08/22/20 Report Number: [id number] cc:Valerie Tarango MD; [place] Naidu Send Report To: [id number] XRP/XR Steroid Injection Hip Rt [id number] XRP/XR Fluoro Needle Placement Reason for exam: [...] Dictation Date/Time: 09/11/20 1558 Transcribed Date/Time: 09/12/20923 Associate Creative Director: CAMPOS Name Value Range Interpretation Code Description Data Ekta rce(s) Supporting Document(s) ID Date Data Source [id number] 09/24/2020 02:37:00 AM EST [facility] Name Value Range Interpretation Code Description Data Ekta rce(s) Supporting Document(s) Erythrocyte Sedimentation ESR 26 mm/hr 0-20 Above high normal [facility] ID Date Data Source [id number] 09/24/2020 02:37:00 AM [facility] Name Value Range Interpretation Code Description Data Ekta rce(s) Supporting Document(s) White Blood Count 4.8-10.8 Above high normal [facility] Red Blood Count 3.68-5.22 Normal (applies to non-numeric results) [facility] Hemoglobin 11.2-15.7 Normal (applies to non-numeric resul ts) [facility] Hematocrit 34.1-44.9 Normal (applies to non-numeric resul ts) [facility] Mean Corpuscular Volume 81-99 Below low normal [facility] Mean Corpuscular Hemoglobin 27.0-33.0 Below low normal [facility] Mean Corpuscular HGB Conc 32.0-36.0 Normal (applies to no n-numeric results) [facility] Red Cell Distribution Width 11.5-14.5 Above high normal [facility] Platelet Count 257 X10 3/uL 130-450 Normal (applies to non-numeric results) [facility] Mean Platelet Volume 9.5-12.7 Normal (applies to non-num salome results) [facility] Imm Grans% (AUTO) 0 % 0-2 Normal (applies to non-numeri c results) [facility] Neutrophils % (AUTO) 63 % 40-75 Normal (applies to non-num salome results) [facility] Lymphocytes % (AUTO) 28 % 21-46 Normal (applies to non-num salome results) [facility] Monocytes % (AUTO) 7 % 5-12 Normal (applies to non-numer ic results) [facility] Eosinophils % (AUTO) 1 % 1-5 Normal (applies to non-num salome results) [facility] Basophils % (AUTO) 0 % 0-1 Normal (applies to non-numer ic results) [facility] Imm Grans# (AUTO) 0.0-0.5 Normal (applies to non-numeri c results) [facility] Neutrophils # (AUTO) 1.5-8.1 Normal (applies to non-num salome results) [facility] Lymphocytes # (AUTO) 1.0-3.1 Normal (applies to non-num salome results) [facility] Monocytes # (AUTO) 0.2-1.3 Normal (applies to non-numer ic results) [facility] Eosinophils# (AUTO) 0.0-0.5 Normal (applies to non-nume yaihr results) [facility] Basophils # (AUTO) 0.0-0.1 Normal (applies to non-numer ic results) [facility] ID Date Data Source [id number] 08/18/2020 11:36:00 AM EST [facility] Name Value Range Interpretation Code Description Data Ekta rce(s) Supporting Document(s) Color,Urine Colorl-Dk Y Normal (applies to non-numeric res ults) [facility] Clarity,Urine Clear Normal (applies to non-numeric re sults) [facility] Specific [place],Urine 1.005-1.030 Normal (applies to non- numeric results) [facility] pH,Urine 5.0-8.0 Normal (applies to non-numeric resul ts) [facility] Protein,Urine Negative Normal (applies to non-numeric re sults) [facility] Glucose,Urine Negative Normal (applies to non-numeric re sults) [facility] Ketones,Urine Negative Normal (applies to non-numeric re sults) [facility] Blood,Urine Negative Normal (applies to non-numeric resu lts) [facility] Bilirubin,Urine Negative Normal (applies to non-numeric results) [facility] Urobilinogen,Urine 0.2-1.0 Normal (applies to non-numer ic results) [facility] Leukocyte Esterase,Urine Negative Normal (applies to non -numeric results) [facility] Nitrite,Urine Negative Normal (applies to non-numeric re sults) [facility] RBC,Urine None Seen [facility] WBC,Urine None Seen [facility] Casts,Urine None Seen Normal (applies to non-numeric resu lts) [facility] Epithelial Cells,Urine None - Few [facility] Bacteria,Urine None Seen [facility] ital Mucus,Urine None Seen [facility] ID Date Data Source [id number] 07/30/2020 07:20:00 AM EDT [facility] Name: ANGELIA ARTHUR : 1965 Age/Sex: 54F Ordering Provider: [place] Naidu Med Rec #: [id number] Reg Status: [facility] Room #: Date of Service: 07/29/20 Report Number: [id number] cc:Valerie Tarango MD; [place] Naidu Send Report To: [id number] XRP/XR L Spine 2 views Ap & [...] Date/Time: 07/29/20 1348 Transcribed Date/Time: 07/30/20 0720 Associate Creative Director: JHONNY Name Value Range Interpretation Code Description Data Ekta rce(s) Supporting Document(s) ID Date Data Source [id number] 07/17/2020 05:47:00 AM EDT [facility] Imaging Services Department Imaging Report [address] [place], [place] [address] %(RAD)RES..mtdd.print.filter("line") Name: ANGELIA ARTHUR : 1965 Age/Sex: 54F Ordering Provider: Erick Sood MD Med Rec #: [id number] Reg Status: [facility] REF Room #: Date of Service: 07/16/20 Report Number: [id number] cc:Valerie Tarango MD; Erick Sood MD Send Report To: [id number] MRI/MRI Hip Rt No Contrast Reason for [...] Dictation Date/Time: 07/16/20 1251 Transcribed Date/Time: 07/17/20 0513 Associate Creative Director: JHONNY Name Value Range Interpretation Code Description Data Ekta rce(s) Supporting Document(s) ID Date Data Source [id number] 07/19/2020 03:04:00 PM EDT [facility] Name Value Range Interpretation Code Description Data Ekta rce(s) Supporting Document(s) Calprotectin,Fecal result 181 ug/g 0-120 Very a bnormal (applies to non-numeric units [facility] Concentration Interpretation Follo w-Up <16 - 50 ug/g Normal None >50 -120 ug/g Borderline Re-evaluate in 4-6 weeks >120 ug/g Abnormal Repeat as clinically indicated Performed at: [address] [id number] Return Clerk: Favio Mcknight MD, Phone: [phone] ID Date Data Source [id number] 07/19/2020 02:54:00 PM EDT [facility] Name Value Range Interpretation Code Description Data Ekta rce(s) Supporting Document(s) Calprotectin,Stool(LCI) result 181 ug/g 0-120 [place]in [facility] Concentration Interpretation Follo w-Up <16 - 50 ug/g Normal None >50 -120 ug/g Borderline Re-evaluate in 4-6 weeks >120 ug/g Abnormal Repeat as clinically indicated Performed at: [facility] [address] [id number] Return Clerk: Favio Mcknight MD, Phone: [phone] ID Date Data Source [id number] 07/18/2020 10:47:00 AM EDT [facility] spital Procedure Performed By: [facility] [address] [place] [address] Director: Asuncion Zuñiga MD No Salmonella, Shigella, [...] rce(s) Supporting Document(s) ID Date Data Source [id number] 07/15/2020 03:43:00 PM EDT [facility] Name Value Range Interpretation Code Description Data Ekta rce(s) Supporting Document(s) H. pylori Fecal Antigen result Negative N ormal (applies to non-numeric results) [facility] Performed By: [facility] [address] [place] [address] Educational Psychologist: Adrianne Huffman MD Test Performed by: [facility] [address] [place] [address] ID Date Data Source [id number] 07/15/2020 03:43:00 PM T [facility] Name Value Range Interpretation Code Description Data [facility] rce(s) Supporting Document(s) Ova and Parasite result Normal (applies to non- numeric results) [facility] SOURCE: STOOL OVA AND PARASITE, MICROSC OPY, F FINAL No parasites seen. Cryptosporidium, Cyclospora, and microsporidia are not readily detected by this method. Single negative specimen does not rule out parasitic infection. Test Performed by: [address] [address] Return Clerk: Willi Rendon M.D. Ph.D.; CLIA# [id number] ID Date Data Source [id number] 07/15/2020 03:22:00 PM EDT [facility] Name Value Range Interpretation Code Description Data Ekta rce(s) Supporting Document(s) H. pylori Antigen,Stool res Negative Normal (appli es to non-numeric results) [facility] Performed By: [facility] [address] [place] [address] Educational Psychologist: Adrianne Huffman MD Test Performed by: [facility] [address] [place] [address] ID Date Data Source [id number] 07/15/2020 03:23:00 PM EDT [facility] Name Value Range Interpretation Code Description Data Ekta rce(s) Supporting Document(s) Ova and Parasite result Normal (applies to non- numeric results) [facility] SOURCE: STOOL OVA AND PARASITE, MICROSC OPY, F FINAL No parasites seen. Cryptosporidium, Cyclospora, and microsporidia are not readily detected by this method. Single negative specimen does not rule out parasitic infection. Test Performed by: [place] [address] Return Clerk: Willi Rendon M.D. Ph.D.; CLIA# [id number] ID Date Data Source [id number] 07/15/2020 01:45:00 AM EDT [facility] This specimen was not examined for Yersi anthony. Procedure Performed By: [facility] [address] [place] [address] Director: Asuncion Zuñiga MDNo Salmonella, Shigella, Campylobacter [...] rce(s) Supporting Document(s) ID Date Data Source [id number] 07/11/2020 06:50:00 PM EDT [facility] C.difficile strain 027/[id number] has bee n associated with severe disease outbreaks and poor treatment outcomes in healthcare facilities worldwide. Reference Range: Toxin producing C. difficile and 027/NAP-1Procedure Performed By: [facility] [address] [place] [address] Director: Asuncion Zuñiga MD . Toxigenic C.difficle: Not detected 027-NAP1-BI: Presumptive negative Name Value Range Interpretation Code Description Data Ekta rce(s) Supporting Document(s) ID Date Data Source [id number] 07/11/2020 03:51:00 PM EDT [facility] C.difficile strain 027/[id number] has been associated with severe disease outbreaks and poor treatment outcomes in healthcare facilities worldwide. Reference Range: Toxin producing C. difficile and 027/NAP-1 Procedure Performed By: [facility] [address] [place] [address] Director: Asuncion Zuñiga MD .Not detectedPresumptive negative Name Value Range Interpretation Code Description Data Ekta rce(s) Supporting Document(s) ID Date Data Source [id number] 07/12/2020 10:31:00 AM EDT [facility] sp[facility] Procedure Performed By: [facility] [address] [place] [address] Director: Asuncion Zuñiga MD QUANTITY: >100,000/mL {ESCHERICHIA COLI} ESCHERICHIA COLISCT Name Value Range Interpretation Code Description Data Ekta rce(s) Supporting Document(s) ID Date Data Source [id number] 07/12/2020 10:31:00 AM EDT [facility] Procedure Performed By: [facility] [address] [place] [address] Director: Asuncion Zuñiga MD QUANTITY: >100,000/mL {ESCHERICHIA COLI} ESCHERICHIA COLISCT Name Value Range Interpretation Code Description Data Ekta rce(s) Supporting Document(s) Amoxicillin/Clavulanic Acid Susc eptible. Indicates for microbiology susceptibilities only. [facility] Ampicillin 8 Susceptible. Ind[facility] for [facility]. [facility] Cefazolin Susceptible. Indicates for microbiol ogy susceptibilities only. [facility] Cefepime Susceptible. Indicates for microbiol ogy susceptibilities only. [facility] ESBL - [facility] Ceftriaxone Susceptible. Indicates for [facility] suscept[facility]. [facility] Ciprofloxacin Susceptible. Ind icates for microbiology susceptibilities only. [facility] Ertapenem Susceptible. Indicates for microbiol ogy susceptibilities only. [facility] Gentamicin Susceptible. Indicates for microbiol ogy susceptibilities only. [facility] Imipenem Susceptible. Indicates for microbiol ogy susceptibilities only. [facility] Meropenem Susceptible. Indicates for microbiol ogy susceptibilities only. [facility] Levofloxacin Susceptible. Indicates for m icrobiology susceptibilities only. [facility] Nitrofurantoin Susceptible. Ind icates for microbiology susceptibilities only. [facility] Pipercillin/Tazobactam Susceptib le. Indicates for microbiology susceptibilities only. [facility] Trimeth/Sulfamethoxazole Suscept ible. Indicates for microbiology susceptibilities only. [facility] ID Date Data Source [id number] 07/12/2020 09:25:00 AM EDT [facility] Name Value Range Interpretation Code Description Data Ekta rce(s) Supporting Document(s) Urine Culture [facility] ospital ID Date Data Source [id number] 07/12/2020 09:25:00 AM EDT [facility] Name Value Range Interpretation Code Description Data Ekta rce(s) Supporting Document(s) Amoxicillin/Clavulanic Acid Susc eptible. Indicates for microbiology susceptibilities only. [facility] Ampicillin 8 Susceptible. Indicates for m icrobiology susceptibilities only. [facility] Cefazolin Susceptible. Indicates for microbiol ogy susceptibilities only. [facility] Cefepime Susceptible. Indicates for microbiol ogy susceptibilities only. [facility] Ceftriaxone Susceptible. Indicates for m icrobiology susceptibilities only. [facility] Ciprofloxacin Susceptible. Ind icates for microbiology susceptibilities only. [facility] Ertapenem Susceptible. Indicates for microbiol ogy susceptibilities only. [facility] Gentamicin Susceptible. Indicates for microbiol ogy susceptibilities only. [facility] Imipenem Susceptible. Indicates for microbiol ogy susceptibilities only. [facility] Meropenem Susceptible. Indicates for microbiol ogy susceptibilities only. [facility] Levofloxacin Susceptible. Indicates for m icrobiology susceptibilities only. [facility] Nitrofurantoin Susceptible. Ind icates for microbiology susceptibilities only. [facility] Pipercillin/Tazobactam Susceptib le. Indicates for microbiology susceptibilities only. [facility] Trimeth/Sulfamethoxazole Suscept ible. Indicates for microbiology susceptibilities only. [facility] ID Date Data Source [id number] 07/10/2020 04:21:00 PM EDT [facility] Name Value Range Interpretation Code Description Data Ekta rce(s) Supporting Document(s) Color,Urine Colorl-Dk Y Normal (applies to non-numeric res ults) [facility] Clarity,Urine Clear Normal (applies to non-numeric re sults) [facility] Specific [place],Urine 1.005-1.030 Normal (applies to non- numeric results) [facility] pH,Urine 5.0-8.0 Normal (applies to non-numeric resul ts) [facility] Protein,Urine Negative [facility] mandi Glucose,Urine Negative Normal (applies to non-numeric re sults) [facility] Ketones,Urine Negative Normal (applies to non-numeric re sults) [facility] Blood,Urine Negative [facility] l Bilirubin,Urine Negative Normal (applies to non-numeric results) [facility] Urobilinogen,Urine 0.2-1.0 Normal (applies to non-numer ic results) [facility] Leukocyte Esterase,Urine Negative [facility] Nitrite,Urine Negative Normal (applies to non-numeric re sults) [facility] RBC,Urine None Seen [facility] WBC,Urine None Seen [facility] Casts,Urine None Seen Normal (applies to non-numeric [facility] Squamous Cells,Urine None Seen [facility] Bacteria,Urine None Seen [facility] ital ID Date Data Source [id number] 07/04/2020 09:17:00 AM EDT [facility] Name Value Range Interpretation Code Description Data Ekta rce(s) Supporting Document(s) PT 9.2-11.7 Normal (applies to non-numeric results) [facility] INR Normal (applies to non-numeric results) [facility] The use of INR is restricted to patients on stable oral anticoagulant. Therapeutic Range: 2.0 - 3.0 High Risk Range: 2.5 - 3.5 ID Date Data Source [id number] 07/04/2020 09:17:00 AM EDT [facility] Name Value Range Interpretation Code Description Data Ekta rce(s) Supporting Document(s) PTT 23.8-37.9 Normal (applies to non-numeric results) [facility] ID Date Data Source [id number] 07/04/2020 08:58:00 AM EDT [facility] Name Value Range Interpretation Code Description Data Ekta rce(s) Supporting Document(s) White Blood Count 3.5-10.5 Above high normal [facility] Red Blood Count 3.90-5.00 Normal (applies to non-numeric results) [facility] Hemoglobin 12.0-15.5 Normal (applies to non-numeric resul ts) [facility] Hematocrit 34.9-44.5 Normal (applies to non-numeric resul ts) [facility] Mean Corpuscular Volume 81.2-95.1 Below low normal [facility] Mean Corpuscular Hgb 25.6-32.2 Normal (applies to non-num salome results) [facility] Mean Corpuscular Hgb Conc 32.0-36.0 Normal (applies to no n-numeric results) [facility] Red Cell Distribution Width 11.9-15.5 Normal (appli es to non-numeric results) [facility] Platelet Count 297 x10 3/uL 150-450 Normal (applies to non-numeric results) [facility] Mean Platelet Volume 9.4-12.4 Below low normal [facility] Neutrophils% (Auto) 31.0-71.0 Normal (applies to non-nume yahir results) [facility] Lymphocytes% (Auto) 20.0-55.0 Normal (applies to non-nume yahir results) [facility] Monocytes% (Auto) 4.0-12.0 Normal (applies to non-numeri c results) [facility] Eosinophils% (Auto) 1.0-8.0 Normal (applies to non-nume yahir results) [facility] Basophils% (Auto) 0.0-2.0 Normal (applies to non-numeri c results) [facility] Immature Granulocytes% (Auto) 0.0-2.0 Normal (taiwo lies to non-numeric results) [facility] Neutrophils# (Auto) 1.50-6.20 Above high normal [facility] Lymphocytes# (Auto) 1.20-4.00 Normal (applies to non-nume yahir results) [facility] Monocytes# (Auto) 0.00-0.90 Normal (applies to non-numeri c results) [facility] Eosinophils# (Auto) 0.00-0.50 Normal (applies to non-nume yahir results) [facility] Basophils# (Auto) 0.00-0.20 Normal (applies to non-numeri c results) [facility] Immature Granulocytes# (Auto) 0.00-7.00 No rmal (applies to non-numeric results) [facility] ID Date Data Source [id number] 07/04/2020 09:25:00 AM EDT [facility] Name Value Range Interpretation Code Description Data Ekta rce(s) Supporting Document(s) Sodium 137 mmol/L 136-145 Normal (applies to non-numeric resul ts) [facility] Potassium 3.5-5.1 Normal (applies to non-numeric resul ts) [facility] Chloride 102 mmol/L 98-107 Normal (applies to non-numeric resul ts) [facility] Carbon Dioxide CO2 21-32 Normal (applies to non-numer ic results) [facility] Anion Gap 5.0-16.0 Normal (applies to non-numeric resul ts) [facility] BUN 16 mg/dL 7-18 Normal (applies to non-numeric results) [facility] Creatinine,Serum 0.7-1.2 Below low normal [facility] GFR >60 Normal (applies to non-numeric results) [facility] Glucose Level 109 mg/dL 60-99 Above high normal [facility] Reference range is only applicable when patient is fasting Note the following drug interference: Sulfasalazine Sulfapyridine Can see falsely depressed Can see falsely elevated result with up to 17% results with up to 11% decrease in measurement increase in measurement Recommend patients be collected for this test prior to administration of either drug. Calcium 8.5-10.1 Normal (applies to non-numeric resul ts) [facility] Bilirubin,Total 0.1-1.9 Normal (applies to non-numeric results) [facility] SGOT(AST) 28 U/L 15-37 Normal (applies to non-numeric resul ts) [facility] Note the following drug interference: Sulfasalazine Sulfapyridine Can see falsely depressed Can see falsely elevated result with up to 10% results with up to 10% decrease in measurement increase in measurement Recommend patients be collected for this test prior to administration of either drug. SGPT(ALT) 49 U/L 12-78 Normal (applies to non-numeric resul ts) [facility] Note the following drug interference: Sulfasalazine Sulfapyridine Can see falsely depressed Can see falsely elevated result with up to 29% results with up to 10% decrease in measurement increase in measurement Recommend patients be collected for this test prior to administration of either drug. Alkaline Phosphatase 124 U/L 38-126 Normal (applies to non-num salome results) [facility] can increase Alkaline Phosp le vels up to 2 times the normal adult value. Normal values for children and adolescents are 2 to 3 times the normal adult value. Total Protein 6.0-8.2 Normal (applies to non-numeric re sults) [facility] Albumin Level 3.4-5.0 Normal (applies to non-numeric re sults) [facility] ID Date Data Source [id number] 07/04/2020 09:25:00 AM EDT [facility] Name Value Range Interpretation Code Description Data Ekta rce(s) Supporting Document(s) Troponin I 0.000-0.056 Normal (applies to non-numeric resu lts) [facility] ID Date Data Source [id number] 07/04/2020 09:25:00 AM EDT [facility] Name Value Range Interpretation Code Description Data Ekta rce(s) Supporting Document(s) Amylase 22 U/L 25-115 Below low normal [facility] ID Date Data Source [id number] 07/04/2020 09:25:00 AM EDT [facility] Name Value Range Interpretation Code Description Data Ekta rce(s) Supporting Document(s) Lipase 127 U/L 73-393 Normal (applies to non-numeric resul ts) [facility] ID Date Data Source [id number] 07/05/2020 05:31:00 AM EDT [facility] Imaging Services Department Imaging Report [address] [place], [place] [address] %(RAD)RES..mtdd.print.filter("line") Name: ANGELIA ARTHUR : 1965 Age/Sex: 54F Ordering Provider: Maggie Bates MD Med Rec #: [id number] [facility] Room #: Date of Service: 07/04/20 Report Number: [id number] cc:Valerie Tarango MD Send Report To: [id number] US/US Gall Bladder Study Reason for exam: [...] Date/Time: 07/04/20 1027 Transcribed Date/Time: 07/05/20 0531 Associate Creative Director: JHONNY Name Value Range Interpretation Code Description Data Ekta rce(s) Supporting Document(s) ID Date Data Source [id number] 07/04/2020 04:33:00 PM EDT [facility] Imaging Services Department Imaging Report [address] [place], [place] [address] %(RAD)RES..mtdd.print.filter("line") Name: ANGELIA ARTHUR : 1965 Age/Sex: 54F Ordering Provider: Maggie Bates MD Med Rec #: [id number] Reg Status: [facility] ER Room #: Date of Service: 07/04/20 Report Number: [id number] cc:Valerie Tarango MD Send Report To: [id number] XRP/XR Chest 2 View [Pa & Lat] [...] Date/Time: 07/04/20 0937 Transcribed Date/Time: 07/04/20 1633 Associate Creative Director: CAMPOS Name Value Range Interpretation Code Description Data Ekta rce(s) Supporting Document(s) ID Date Data Source [id number] 07/04/2020 04:37:00 PM EDT [facility] Imaging Services Department Imaging Report [address] [place], [place] [address] %(RAD)RES..mtdd.print.filter("line") Name: ANGELIA ARTHUR : 1965 Age/Sex: 54F Ordering Provider: Maggie Bates MD Med Rec #: [id number] [facility] Room #: Date of Service: 07/04/20 Report Number: [id number] cc:Valerie Tarango MD Send Report To: [id number] CT/CT Abdomen & Pelvis No Contras Reason [...] Date/Time: 07/04/20 0937 Transcribed Date/Time: 07/04/20 1637 Associate Creative Director: CAMPOS Name Value Range Interpretation Code Description Data Ekta rce(s) Supporting Document(s) ID Date Data Source [id number] 06/30/2020 11:38:00 PM EDT [facility] Name Value Range Interpretation Code Description Data Ekta rce(s) Supporting Document(s) Respiratory specimen severe acute respir atory syndrome coronavirus 2 (SARS-CoV-2) RNA [facility] ital This lab was ordered by [facility] layne and reported by [facility]. Procedure Social History No Information Vital Signs ID Date Data Source UNK Name Value Range Interpretation Code Description Data Source(s) Body temperature 97.3 [degF] 97.3 [degF] [facility] Body height 63.75 [in_i] 63.75 [in_i] [facility] ([facility] ) 5'3.75" Body weight 253.00 [lb_av] 253.00 [lb_av] [facility] T ([facility]) Body mass index (BMI) [Ratio] 43.8 kg/m2 43.8 k g/m2 [facility] ([facility]) ID Date Data Source [id number] 08/25/2021 12:44:00 PM EST [facility] Name Value Range Interpretation Code Description Data Source(s) Weight (Calculated Kilograms) 106.96 106.96 [facility] Height (Calculated Centimeters) 160.02 160. 02 [facility] Body Mass Index (BMI) 41.8 41.8 [facility] Weight (Calculated Kilograms) 106.96 106.96 [facility] Height (Calculated Centimeters) 160.02 160. 02 [facility] Body Mass Index (BMI) 41.8 41.8 [facility] Weight (Calculated Kilograms) 106.96 106.96 [facility] Height (Calculated Centimeters) 160.02 160. 02 [facility] Body Mass Index (BMI) 41.8 41.8 [facility] ID Date Data Source [id number] 07/31/2021 05:32:00 PM EDT [facility] Name Value Range Interpretation Code Description Data Source(s) Weight (Calculated Kilograms) 106.96 106.96 [facility] Height (Calculated Centimeters) 160.02 160. 02 [facility] Body Mass Index (BMI) 41.8 41.8 [facility] ID Date Data Source [id number] 08/01/2021 12:05:00 AM EDT [facility] Name Value Range Interpretation Code Description Data Source(s) Weight (Calculated Kilograms) 93.58 93.58 [facility] Height (Calculated Centimeters) 160.02 160. 02 [facility] Body Mass Index (BMI) 36.[address] ID Date Data Source [id number] 08/05/2021 01:22:00 PM EDT [facility] Name Value Range Interpretation Code Description Data Source(s) Weight (Calculated Kilograms) 106.96 106.96 [facility] Height (Calculated Centimeters) 160.02 160. 02 [facility] Body Mass Index (BMI) 41.8 41.8 [facility] ID Date Data Source [id number] 07/17/2021 12:06:00 AM EDT [facility] Name Value Range Interpretation Code Description Data Source(s) Weight (Calculated Kilograms) 93.58 93.58 [facility] Height (Calculated Centimeters) 160.02 160. 02 [facility] Body Mass Index (BMI) 36.5 365 [facility] ID Date Data Source [id number] 07/14/2021 02:29:00 PM EDT [facility] Name Value Range Interpretation Code Description Data Source(s) Weight Measurement Method 8 8 [facility] Weight (Calculated Kilograms) 93.58 93.58 [facility] Weight 4160 4160 [facility] pital Temperature Source 7 7 [facility] Temperature 97.9 97.9 [facility] Respiratory Effort 1 1 [facility] Respiratory Rate 20 20 [facility] Pulse Assessment Method 4 4 G [facility] Pulse Rate 91 91 [facility]ital Height (Calculated Centimeters) 160.02 160. 02 [facility] 63 63 [facility] 129/73 129/73 [facility] Body Mass Index (BMI) 36.[address] Weight Measurement Method 8 8 [facility] Weight (Calculated Kilograms) 93.58 93.58 [facility] Weight 4160 4160 [facility] pital Temperature Source 7 7 [facility] Temperature 97.9 97.9 [facility] Respiratory Effort 1 1 [facility] Respiratory Rate 20 20 [facility] Pulse Assessment Method 4 4 G [facility] Pulse Rate 91 91 [facility] pital Height (Calculated Centimeters) 160.02 160. 02 [facility] Height 63 63 [facility] Blood Pressure 129/73 129/73 [facility] Body Mass Index (BMI) 36.[address] Weight (Calculated Kilograms) 93.58 93.58 [facility] Height (Calculated Centimeters) 160.02 160. 02 [facility] Body Mass Index (BMI) 36.[address] Weight (Calculated Kilograms) 93.58 93.58 [facility] Height (Calculated Centimeters) 160.02 160. 02 [facility] Body Mass Index (BMI) [address] ID Date Data Source [id number] 07/03/2021 10:16:00 PM EDT [facility] Name Value Range Interpretation Code Description Data Source(s) Weight (Calculated Kilograms) 106.96 106.96 [facility] Height (Calculated Centimeters) 160.02 160. 02 [facility] Body Mass Index (BMI) 41.8 41.8 [facility] ID Date Data Source [id number] 07/04/2021 12:08:00 AM EDT [facility] Name Value Range Interpretation Code Description Data Source(s) Weight (Calculated Kilograms) 93.58 93.58 [facility] Height (Calculated Centimeters) 160.02 160. 02 [facility] Body Mass Index (BMI) 36.5 36.5 [facility] ID Date Data Source [id number] 08/11/2021 04:05:00 PM EDT [facility] Name Value Range Interpretation Code Description Data Source(s) Weight (Calculated Kilograms) 106.96 106.96 [facility] Height (Calculated Centimeters) 160.02 160. 02 [facility] Body Mass Index (BMI) 41.8 41.8 [facility] ID Date Data Source [id number] 07/28/2021 08:55:00 AM EDT [facility] Name Value Range Interpretation Code Description Data Source(s) Weight (Calculated Kilograms) 106.96 106.96 [facility] Height (Calculated Centimeters) 160.02 160. 02 [facility] Body Mass Index (BMI) 41.8 41.8 [facility] ID Date Data Source [id number] 06/27/2021 06:01:00 PM EDT [facility] Name Value Range Interpretation Code Description Data Source(s) Weight (Calculated Kilograms) 106.96 106.96 [facility] Height (Calculated Centimeters) 160.02 160. 02 [facility] Body Mass Index (BMI) 41.8 41.8 [facility] Weight (Calculated Kilograms) 106.96 106.96 [facility] Height (Calculated Centimeters) 160.02 160. 02 [facility] Body Mass Index (BMI) 41.8 41.8 [facility] Weight (Calculated Kilograms) 106.96 106.96 [facility] Height (Calculated Centimeters) 160.02 160. 02 [facility] Body Mass Index (BMI) 41.8 41.8 [facility] ID Date Data Source [id number] 07/10/2021 01:19:00 PM EDT [facility] Name Value Range Interpretation Code Description Data Source(s) Weight (Calculated Kilograms) 106.96 106.96 [facility] Temperature Source 7 7 [facility] Temperature 96.9 96.9 [facility] Respiratory Effort 2 2 [facility] Respiratory Rate 18 18 [facility] Pulse Assessment Method 4 4 [facility] Pulse Rate 85 85 [facility] Height (Calculated Centimeters) 160.02 160. 02 [facility] Blood Pressure 137/69 137/69 [facility] Body Mass Index (BMI) 41.8 41.8 [facility] Weight (Calculated Kilograms) 106.96 106.96 [facility] Temperature Source 7 7 [facility] Temperature 96.9 96.9 [facility] Respiratory Effort 2 2 [facility] Respiratory Rate 18 18 [facility] Pulse Assessment Method 4 4 [facility] Pulse Rate 85 85 [facility] Height (Calculated Centimeters) 160.02 160. 02 [facility] Blood Pressure 137/69 137/69 [facility] Body Mass Index (BMI) 41.8 41.8 [facility] Weight (Calculated Kilograms) 106.96 106.96 [facility] Height (Calculated Centimeters) 160.02 160. 02 [facility] Body Mass Index (BMI) 41.8 41.8 [facility] Weight (Calculated Kilograms) 106.96 106.96 [facility] Height (Calculated Centimeters) 160.02 160. 02 [facility] Body Mass Index (BMI) 41.8 41.8 [facility] ID Date Data Source [id number] 06/20/2021 01:07:00 PM EDT [facility] Name Value Range Interpretation Code Description Data Source(s) Weight (Calculated Kilograms) 106.96 106.96 [facility] Weight 4096 4096 [facility] Temperature 97.8 97.8 [facility] Respiratory Rate 20 20 [facility] Pulse Rate 87 87 [facility] Height (Calculated Centimeters) 160.02 160. 02 [facility] Height 63 63 [facility] Blood Pressure 125/57 125/57 [facility] Body Mass Index (BMI) 41.8 41.8 [facility] Weight (Calculated Kilograms) 106.96 106.96 [facility] Weight 4096 4096 [facility] Temperature 97.8 97.8 [facility] Respiratory Rate 20 20 [facility] Pulse Rate 87 87 [facility] Height (Calculated Centimeters) 160.02 160. 02 [facility] Height 63 63 [facility] Blood Pressure 125/57 125/57 [facility] Body Mass Index (BMI) 41.8 41.8 [facility] Weight (Calculated Kilograms) 106.96 106.96 [facility] Weight 4096 4096 [facility] Height (Calculated Centimeters) 160.02 160. 02 [facility] Height 63 63 [facility] Body Mass Index (BMI) 41.8 41.8 [facility] ID Date Data Source [id number] 06/12/2021 07:43:00 AM EDT [facility] Name Value Range Interpretation Code Description Data Source(s) Weight (Calculated Kilograms) 93.58 93.58 [facility] Height (Calculated Centimeters) 160.02 160. 02 [facility] Body Mass Index (BMI) 36.5 36.5 [facility] ID Date Data Source [id number] 07/07/2021 01:12:00 PM EDT [facility] Name Value Range Interpretation Code Description Data Source(s) Weight (Calculated Kilograms) 106.96 106.96 [facility] Height (Calculated Centimeters) 160.02 160. 02 [facility] Body Mass Index (BMI) 41.8 41.8 [facility] ID Date Data Source [id number] 06/05/2021 04:38:00 PM T [facility] Name Value Range Interpretation Code Description Data Source(s) Weight (Calculated Kilograms) 106.96 106.96 [facility] Height (Calculated Centimeters) 160.02 160. 02 [facility] Body Mass Index (BMI) 41.8 41.8 [facility] ID Date Data Source [id number] 06/06/2021 12:04:00 AM T [facility] Name Value Range Interpretation Code Description Data Source(s) Weight (Calculated Kilograms) 93.58 93.58 [facility] Height (Calculated Centimeters) 160.02 160. 02 [facility] Body Mass Index (BMI) 36.5 36.5 [facility] ID Date Data Source [id number] 08/19/2021 12:23:00 AM [facility] Name Value Range Interpretation Code Description Data Source(s) Weight (Calculated Kilograms) 106.96 106.96 [facility] Height (Calculated Centimeters) 160.02 160. 02 [facility] Body Mass Index (BMI) 41.8 41.8 [facility] ID Date Data Source [id number] 05/29/2021 11:35:00 AM [facility] Name Value Range Interpretation Code Description Data Source(s) Weight (Calculated Kilograms) 93.58 93.58 [facility] Height (Calculated Centimeters) 160.02 160. 02 [facility] Body Mass Index (BMI) 36.5 365 [facility] ID Date Data Source [id number] 06/17/2021 01:47:00 PM [facility] Name Value Range Interpretation Code Description Data Source(s) Weight (Calculated Kilograms) 106.96 106.96 [facility] Height (Calculated Centimeters) 160.02 160. 02 [facility] Body Mass Index (BMI) 41.8 41.8 [facility] ID Date Data Source [id number] 05/06/2021 04:35:00 PM [facility] Name Value Range Interpretation Code Description Data Source(s) Weight (Calculated Kilograms) 106.96 106.96 [facility] Height (Calculated Centimeters) 160.02 160. 02 [facility] Body Mass Index (BMI) 41.8 41.8 [facility] ID Date Data Source [id number] 05/06/2021 05:11:00 PM [facility] Name Value Range Interpretation Code Description Data Source(s) Weight (Calculated Kilograms) 93.58 93.58 [facility] Height (Calculated Centimeters) 160.02 160. 02 [facility] Body Mass Index (BMI) 36.5 36.5 [facility] ID Date Data Source [id number] 05/07/2021 09:50:00 AM [facility] Name Value Range Interpretation Code Description Data Source(s) Weight (Calculated Kilograms) 106.96 106.96 [facility] Height (Calculated Centimeters) 160.02 160. 02 [facility] Body Mass Index (BMI) 41.8 41.8 [facility] ID Date Data Source [id number] 05/07/2021 10:06:00 AM [facility] Name Value Range Interpretation Code Description Data Source(s) Weight (Calculated Kilograms) 93.58 93.58 [facility] Height (Calculated Centimeters) 160.02 160. 02 [facility] Body Mass Index (BMI) 36.5 36.5 [facility] ID Date Data Source [id number] 04/28/2021 05:40:00 AM [facility] Name Value Range Interpretation Code Description Data Source(s) Weight (Calculated Kilograms) 106.96 106.96 [facility] Height (Calculated Centimeters) 160.02 160. 02 [facility] Body Mass Index (BMI) 41.8 41.8 [facility] ID Date Data Source [id number] 04/17/2021 11:02:00 AM [facility] Name Value Range Interpretation Code Description Data Source(s) Weight (Calculated Kilograms) 106.96 106.96 [facility] Height (Calculated Centimeters) 160.02 160. 02 [facility] Body Mass Index (BMI) 41.8 41.8 [facility] ID Date Data Source [id number] 04/17/2021 01:57:00 PM [facility] Name Value Range Interpretation Code Description Data Source(s) Weight (Calculated Kilograms) 106.96 106.96 [facility] Height (Calculated Centimeters) 160.02 160. 02 [facility] Body Mass Index (BMI) 41.8 41.8 [facility] ID Date Data Source [id number] 04/22/2021 12:25:00 PM EDT [facility] Name Value Range Interpretation Code Description Data Source(s) Weight (Calculated Kilograms) 106.96 106.96 [facility] Height (Calculated Centimeters) 160.02 160. 02 [facility] Body Mass Index (BMI) 41.8 41.8 [facility] ID Date Data Source [id number] 04/22/2021 12:46:00 PM EDT [facility] Name Value Range Interpretation Code Description Data Source(s) Weight (Calculated Kilograms) 93.58 93.58 [facility] Height (Calculated Centimeters) 160.02 160. 02 [facility] Body Mass Index (BMI) 36.5 36.5 [facility] ID Date Data Source [id number] 04/17/2021 08:17:00 AM EDT [facility] Name Value Range Interpretation Code Description Data Source(s) Weight (Calculated Kilograms) 106.96 106.96 [facility] Height (Calculated Centimeters) 160.02 160. 02 [facility] Body Mass Index (BMI) 41.8 41.8 [facility] ID Date Data Source [id number] 04/17/2021 02:02:00 PM [facility] Name Value Range Interpretation Code Description Data Source(s) Weight (Calculated Kilograms) 106.96 106.96 [facility] Height (Calculated Centimeters) 160.02 160. 02 [facility] Body Mass Index (BMI) 41.8 41.8 [facility] Weight (Calculated Kilograms) 106.96 106.96 [facility] Height (Calculated Centimeters) 160.02 160. 02 [facility] Body Mass Index (BMI) 41.8 41.8 [facility] Weight (Calculated Kilograms) 106.96 106.96 [facility] Height (Calculated Centimeters) 160.02 160. 02 [facility] Body Mass Index (BMI) 41.8 41.8 [facility] ID Date Data Source [id number] 04/21/2021 08:03:00 AM EDT [facility] Name Value Range Interpretation Code Description Data Source(s) Weight (Calculated Kilograms) 106.96 106.96 [facility] Height (Calculated Centimeters) 160.02 160. 02 [facility] Body Mass Index (BMI) 41.8 41.8 [facility] ID Date Data Source [id number] 03/28/2021 05:35:00 PM EDT [facility] Name Value Range Interpretation Code Description Data Source(s) Weight (Calculated Kilograms) 106.96 106.96 [facility] Height (Calculated Centimeters) 160.02 160. 02 [facility] Body Mass Index (BMI) 41.8 41.8 [facility] ID Date Data Source [id number] 03/29/2021 12:03:00 AM EDT [facility] Name Value Range Interpretation Code Description Data Source(s) Weight (Calculated Kilograms) 93.58 93.58 [facility] Height (Calculated Centimeters) 160.02 160. 02 [facility] Body Mass Index (BMI) 36.[address] ID Date Data Source [id number] 03/26/2021 09:28:00 AM EDT [facility] Name Value Range Interpretation Code Description Data Source(s) Weight (Calculated Kilograms) 106.96 106.96 [facility] Height (Calculated Centimeters) 160.02 160. 02 [facility] Body Mass Index (BMI) 41.8 41.8 [facility] ID Date Data Source [id number] 03/27/2021 09:39:00 AM EDT [facility] Name Value Range Interpretation Code Description Data Source(s) Weight (Calculated Kilograms) 93.58 93.58 [facility] Height (Calculated Centimeters) 160.02 160. 02 [facility] Body Mass Index (BMI) 36.[address] Weight (Calculated Kilograms) 93.58 93.58 [facility] Height (Calculated Centimeters) 160.02 160. 02 [facility] Body Mass Index (BMI) 36.5 36.5 [facility] ID Date Data Source [id number] 03/17/2021 07:09:00 AM [facility] Name Value Range Interpretation Code Description Data Source(s) Weight (Calculated Kilograms) 106.96 106.96 [facility] Height (Calculated Centimeters) 160.02 160. 02 [facility] Body Mass Index (BMI) 41.8 41.8 [facility] ID Date Data Source [id number] 03/12/2021 02:02:00 PM [facility] Name Value Range Interpretation Code Description Data Source(s) Weight (Calculated Kilograms) 106.96 106.96 [facility] Height (Calculated Centimeters) 160.02 160. 02 [facility] Body Mass Index (BMI) 41.8 41.8 [facility] Weight (Calculated Kilograms) 106.96 106.96 [facility] Height (Calculated Centimeters) 160.02 160. 02 [facility] Body Mass Index (BMI) 41.8 41.8 [facility] Weight (Calculated Kilograms) 106.96 106.96 [facility] Height (Calculated Centimeters) 160.02 160. 02 [facility] Body Mass Index (BMI) 41.8 41.8 [facility] ID Date Data Source [id number] 03/05/2021 08:51:00 AM [facility] Name Value Range Interpretation Code Description Data Source(s) Weight (Calculated Kilograms) 106.96 106.96 [facility] Height (Calculated Centimeters) 160.02 160. 02 [facility] Body Mass Index (BMI) 41.8 41.8 [facility] ID Date Data Source [id number] 03/05/2021 11:28:00 AM [facility] Name Value Range Interpretation Code Description Data Source(s) Weight (Calculated Kilograms) 93.58 93.58 [facility] Height (Calculated Centimeters) 160.02 160. 02 [facility] Body Mass Index (BMI) 36.5 365 [facility] Weight (Calculated Kilograms) 93.58 93.58 [facility] Height (Calculated Centimeters) 160.02 160. 02 [facility] Body Mass Index (BMI) 36.5 36.5 [facility] ID Date Data Source [id number] 02/26/2021 08:05:00 AM EDT [facility] Name Value Range Interpretation Code Description Data Source(s) Weight (Calculated Kilograms) 106.96 106.96 [facility] Height (Calculated Centimeters) 160.02 160. 02 [facility] Body Mass Index (BMI) 41.8 41.8 [facility] ID Date Data Source [id number] 03/24/2021 09:41:00 AM EDT [facility] Name Value Range Interpretation Code Description Data Source(s) Weight (Calculated Kilograms) 106.96 106.96 [facility] Height (Calculated Centimeters) 160.02 160. 02 [facility] Body Mass Index (BMI) 41.8 41.8 [facility] ID Date Data Source [id number] 02/12/2021 11:36:00 AM EDT [facility] Name Value Range Interpretation Code Description Data Source(s) Weight (Calculated Kilograms) 93.58 93.58 [facility] Height (Calculated Centimeters) 160.02 160. 02 [facility] Body Mass Index (BMI) 36.5 365 [facility] Weight (Calculated Kilograms) 93.58 93.58 [facility] Height (Calculated Centimeters) 160.02 160. 02 [facility] Body Mass Index (BMI) 36.5 36.5 [facility] ID Date Data Source [id number] 02/11/2021 08:51:00 AM EDT [facility] Name Value Range Interpretation Code Description Data Source(s) Weight (Calculated Kilograms) 106.96 106.96 [facility] Height (Calculated Centimeters) 160.02 160. 02 [facility] Body Mass Index (BMI) 41.8 41.8 [facility] ID Date Data Source [id number] 03/07/2021 03:37:00 AM EDT [facility] Name Value Range Interpretation Code Description Data Source(s) Weight (Calculated Kilograms) 93.58 93.58 [facility] Height (Calculated Centimeters) 160.02 160. 02 [facility] Body Mass Index (BMI) 36.5 36.5 [facility] ID Date Data Source [id number] 02/06/2021 01:12:00 PM EDT [facility] Name Value Range Interpretation Code Description Data Source(s) Weight (Calculated Kilograms) 106.96 106.96 [facility] Temperature 97.3 97.3 [facility] Respiratory Rate 16 16 [facility] Pulse Rate 76 76 [facility] Height (Calculated Centimeters) 160.02 160. 02 [facility] Blood Pressure 138/76 138/76 [facility] Body Mass Index (BMI) 41.8 41.8 [facility] Weight (Calculated Kilograms) 106.96 106.96 [facility] Height (Calculated Centimeters) 160.02 160. 02 [facility] Body Mass Index (BMI) 41.8 41.8 [facility] Weight (Calculated Kilograms) 106.96 106.96 [facility] Height (Calculated Centimeters) 160.02 160. 02 [facility] Body Mass Index (BMI) 41.8 41.8 [facility] ID Date Data Source [id number] 02/10/2021 10:26:00 AM [facility] Value Range Interpretation Code Description Data Source(s) Weight (Calculated Kilograms) 93.58 93.58 [facility] Height (Calculated Centimeters) 160.02 160. 02 [facility] Body Mass Index (BMI) 36.5 36.5 [facility] Weight (Calculated Kilograms) 93.58 93.58 [facility] Height (Calculated Centimeters) 160.02 160. 02 [facility] Body Mass Index (BMI) 36.5 365 [facility] Weight (Calculated Kilograms) 93.58 93.58 [facility] Height (Calculated Centimeters) 160.02 160. 02 [facility] Body Mass Index (BMI) 36.5 36.5 [facility] ID Date Data Source [id number] 01/25/2021 12:01:00 AM [facility]T [facility] Name Value Range Interpretation Code Description Data Source(s) Weight (Calculated Kilograms) 93.58 93.58 [facility] Height (Calculated Centimeters) 160.02 160. 02 [facility] Body Mass Index (BMI) 36.[address] ID Date Data Source [id number] 01/21/2021 05:19:00 PM EDT [facility] Name Value Range Interpretation Code Description Data Source(s) Weight Measurement Method 8 8 [facility] Weight (Calculated Kilograms) 93.58 93.58 [facility] Weight 3920 3920 [facility] pital Temperature Source 7 7 [facility] Temperature 97.8 97.8 [facility] spital Respiratory Rate 16 16 [facility] Pulse Rate 96 96 [facility] pital Height (Calculated Centimeters) 160.02 160. 02 [facility] Height 63 63 [facility] pital Blood Pressure 144/78 144/78 [facility] Body Mass Index (BMI) 36.[address] Weight Measurement Method 8 8 [facility] Weight (Calculated Kilograms) 93.58 93.58 [facility] Weight 3920 3920 [facility] pital Temperature Source 7 7 [facility] Temperature 97.8 97.8 [facility] spital Respiratory Rate 16 16 [facility] Pulse Rate 96 96 [facility] pital Height (Calculated Centimeters) 160.02 160. 02 [facility] 63 [facility] 144/78 144/78 [facility] Body Mass Index (BMI) 36.[address] Weight (Calculated Kilograms) 93.58 93.58 [facility] Height (Calculated Centimeters) 160.02 160. 02 [facility] Body Mass Index (BMI) 36.[address] Weight (Calculated Kilograms) 93.58 93.58 [facility] Height (Calculated Centimeters) 160.02 160. 02 [facility] Body Mass Index (BMI) 36.5 36.5 [facility] ID Date Data Source [id number] 01/20/2021 05:20:00 PM EDT [facility] Name Value Range Interpretation Code Description Data Source(s) Weight (Calculated Kilograms) 106.96 106.96 [facility] Height (Calculated Centimeters) 160.02 160. 02 [facility] Body Mass Index (BMI) 41.8 41.8 [facility] ID Date Data Source [id number] 01/21/2021 12:03:00 AM EDT [facility] Name Value Range Interpretation Code Description Data Source(s) Weight (Calculated Kilograms) 93.58 93.58 [facility] Height (Calculated Centimeters) 160.02 160. 02 [facility] Body Mass Index (BMI) 36.[address] ID Date Data Source [id number] 02/10/2021 04:52:00 PM EDT [facility] Name Value Range Interpretation Code Description Data Source(s) Weight (Calculated Kilograms) 93.58 93.58 [facility] Height (Calculated Centimeters) 160.02 160. 02 [facility] Body Mass Index (BMI) 36.[address] [place] [address] Weight (Calculated Kilograms) 93.58 93.58 [facility] Height (Calculated Centimeters) 160.02 160. 02 [facility] Body Mass Index (BMI) [address] [place] [address] Weight (Calculated Kilograms) 93.58 93.58 [facility] Height (Calculated Centimeters) 160.02 160. 02 [facility] Body Mass Index (BMI) 36.[address] [place] [address] Weight (Calculated Kilograms) 93.58 93.58 [facility] Height (Calculated Centimeters) 160.02 160. 02 [facility] Body Mass Index (BMI) 36.[address] Weight (Calculated Kilograms) 93.58 93.58 [facility] Height (Calculated Centimeters) 160.02 160. 02 [facility] Body Mass Index (BMI) 36.[address] [place] [address] Weight (Calculated Kilograms) 93.58 93.58 [facility] Height (Calculated Centimeters) 160.02 160. 02 [facility] Body Mass Index (BMI) 36.5 36.5 [facility] ID Date Data Source [id number] 01/23/2021 03:19:00 PM EDT [facility] Name Value Range Interpretation Code Description Data Source(s) Weight (Calculated Kilograms) 106.96 106.96 [facility] Height (Calculated Centimeters) 160.02 160. 02 [facility] Body Mass Index (BMI) 41.8 41.8 [facility] Weight (Calculated Kilograms) 106.96 106.96 [facility] Height (Calculated Centimeters) 160.02 160. 02 [facility] Body Mass Index (BMI) 41.8 41.8 [facility] ID Date Data Source [id number] 01/16/2021 06:47:00 PM EDT [facility] Name Value Range Interpretation Code Description Data Source(s) Weight (Calculated Kilograms) 106.96 106.96 [facility] Height (Calculated Centimeters) 160.02 160. 02 [facility] Body Mass Index (BMI) 41.8 41.8 [facility] ID Date Data Source [id number] 01/22/2021 07:11:00 AM EDT [facility] Name Value Range Interpretation Code Description Data Source(s) Weight (Calculated Kilograms) 106.96 106.96 [facility] Height (Calculated Centimeters) 160.02 160. 02 [facility] Body Mass Index (BMI) 41.8 41.8 [facility] Weight (Calculated Kilograms) 106.96 106.96 [facility] Height (Calculated Centimeters) 160.02 160. 02 [facility] Body Mass Index (BMI) 41.8 41.8 [facility] ID Date Data Source [id number] 01/14/2021 12:03:00 AM EDT [facility] Name Value Range Interpretation Code Description Data Source(s) Weight (Calculated Kilograms) 93.58 93.58 [facility] Height (Calculated Centimeters) 160.02 160. 02 [facility] Body Mass Index (BMI) 36.5 36.5 [facility] ID Date Data Source [id number] 01/14/2021 12:22:00 PM EDT [facility] Name Value Range Interpretation Code Description Data Source(s) Weight (Calculated Kilograms) 106.96 106.96 [facility] Height (Calculated Centimeters) 160.02 160. 02 [facility] Body Mass Index (BMI) 41.8 41.8 [facility] Weight (Calculated Kilograms) 106.96 106.96 [facility] Height (Calculated Centimeters) 160.02 160. 02 [facility] Body Mass Index (BMI) 41.8 41.8 [facility] Weight (Calculated Kilograms) 106.96 106.96 [facility] Height (Calculated Centimeters) 160.02 160. 02 [facility] Body Mass Index (BMI) 41.8 41.8 [facility] ID Date Data Source [id number] 01/08/2021 01:21:00 PM EDT [facility] Name Value Range Interpretation Code Description Data Source(s) Weight Measurement Method 1 1 [facility] Weight (Calculated Kilograms) 106.96 106.96 [facility] Weight 4032 4032 [facility] Temperature 97.2 97.2 [facility] Respiratory Rate 16 16 [facility] Pulse Rate 67 67 [facility] Height (Calculated Centimeters) 160.02 160. 02 [facility] Height 63 63 [facility] Blood Pressure 108/63 108/63 [facility] Body Mass Index (BMI) 41.8 41.8 [facility] Weight (Calculated Kilograms) 106.96 106.96 [facility] Height (Calculated Centimeters) 160.02 160. 02 [facility] Body Mass Index (BMI) 41.8 41.8 [facility] Weight (Calculated Kilograms) 106.96 106.96 [facility] Height (Calculated Centimeters) 160.02 160. 02 [facility] Body Mass Index (BMI) 41.8 41.8 [facility] ID Date Data Source [id number] 01/09/2021 12:02:00 AM EDT [facility] Name Value Range Interpretation Code Description Data Source(s) Weight (Calculated Kilograms) 106.96 106.96 [facility] Height (Calculated Centimeters) 160.02 160. 02 [facility] Body Mass Index (BMI) 41.8 41.8 [facility] ID Date Data Source [id number] 01/17/2021 07:07:00 AM EDT [facility] Name Value Range Interpretation Code Description Data Source(s) Weight (Calculated Kilograms) 106.96 106.96 [facility] Weight 3856 3856 [facility] Temperature 97.3 97.3 [facility] Respiratory Rate 16 16 [facility] Pulse Rate 72 72 [facility] Height (Calculated Centimeters) 160.02 160. 02 [facility] Height 63.5 63.5 [facility] Blood Pressure 106/68 106/68 [facility] Body Mass Index (BMI) 41.8 41.8 [facility] Weight (Calculated Kilograms) 106.96 106.96 [facility] Weight 3856 3856 [facility] Temperature 97.3 97.3 [facility] Respiratory Rate 16 16 [facility] Pulse Rate 72 72 [facility] Height (Calculated Centimeters) 160.02 160. 02 [facility] Height 63.5 63.5 [facility] Blood Pressure 106/68 106/68 [facility] Body Mass Index (BMI) 41.8 41.8 [facility] Weight (Calculated Kilograms) 106.96 106.96 [facility] Height (Calculated Centimeters) 160.02 160. 02 [facility] Body Mass Index (BMI) 41.8 41.8 [facility] ID Date Data Source [id number] 03/24/2021 01:28:00 PM EDT [facility] Name Value Range Interpretation Code Description Data Source(s) Weight (Calculated Kilograms) 106.96 106.96 [facility] Height (Calculated Centimeters) 160.02 160. 02 [facility] Body Mass Index (BMI) 41.8 41.8 [facility] ID Date Data Source [id number] 01/27/2021 11:20:00 AM [facility] Name Value Range Interpretation Code Description Data Source(s) Weight (Calculated Kilograms) 106.96 106.96 [facility] Height (Calculated Centimeters) 160.02 160. 02 [facility] Body Mass Index (BMI) 41.8 41.8 [facility] ID Date Data Source [id number] 12/28/2020 07:45:00 PM [facility] Name Value Range Interpretation Code Description Data Source(s) Weight (Calculated Kilograms) 106.96 106.96 [facility] Height (Calculated Centimeters) 160.02 160. 02 [facility] Body Mass Index (BMI) 41.8 41.8 [facility] ID Date Data Source [id number] 12/20/2020 09:28:00 PM [facility] Name Value Range Interpretation Code Description Data Source(s) Weight (Calculated Kilograms) 106.96 106.96 [facility] Height (Calculated Centimeters) 160.02 160. 02 [facility] Body Mass Index (BMI) 41.8 41.8 [facility] ID Date Data Source [id number] 12/21/2020 12:07:00 AM [facility] Name Value Range Interpretation Code Description Data Source(s) Weight (Calculated Kilograms) 93.58 93.58 [facility] Height (Calculated Centimeters) 160.02 160. 02 [facility] Body Mass Index (BMI) 36.5 36.5 [facility] ID Date Data Source [id number] 01/27/2021 11:20:00 AM [facility] Name Value Range Interpretation Code Description Data Source(s) Weight (Calculated Kilograms) 106.96 106.96 [facility] Height (Calculated Centimeters) 160.02 160. 02 [facility] Body Mass Index (BMI) 41.8 41.8 [facility] ID Date Data Source [id number] 12/11/2020 08:09:00 PM [facility] Name Value Range Interpretation Code Description Data Source(s) Weight (Calculated Kilograms) 106.96 106.96 [facility] Height (Calculated Centimeters) 160.02 160. 02 [facility] Body Mass Index (BMI) 41.8 41.8 [facility] Weight Measurement Method 1 1 [facility] Weight (Calculated Kilograms) 106.96 106.96 [facility] Weight 3952 3952 [facility] Temperature 97 97 [facility] Respiratory Rate 16 16 [facility] Pulse Rate 85 85 [facility] Height (Calculated Centimeters) 160.02 160. 02 [facility] Height 64 64 [facility] Blood Pressure 110/60 110/60 [facility] Body Mass Index (BMI) 41.8 41.8 [facility] Weight (Calculated Kilograms) 106.96 106.96 [facility] Height (Calculated Centimeters) 160.02 160. 02 [facility] Body Mass Index (BMI) 41.8 41.8 [facility] ID Date Data Source [id number] 01/20/2021 12:43:00 PM EDT [facility] Name Value Range Interpretation Code Description Data Source(s) Weight (Calculated Kilograms) 106.96 106.96 [facility] Height (Calculated Centimeters) 160.02 160. 02 [facility] Body Mass Index (BMI) 41.8 41.8 [facility] ID Date Data Source [id number] 12/09/2020 01:23:00 PM EST [facility] Name Value Range Interpretation Code Description Data Source(s) Weight Measurement Method 8 8 [facility] Weight (Calculated Kilograms) 93.58 93.58 [facility] Weight 3920 3920 [facility] pital Temperature Source 7 7 [facility] Temperature 96.8 96.8 [facility] spital Respiratory Effort 1 1 [facility] Respiratory Rate 18 18 [facility] Pulse Assessment Method 4 4 G [facility] Pulse Rate 80 80 [facility] pital Height (Calculated Centimeters) 160.02 160. 02 [facility] Height 63 63 [facility] Blood [facility] 134/80 134/80 [facility] Body Mass Index (BMI) 36.5 36.5 [facility] Weight Measurement Method 8 8 [facility] Weight (Calculated Kilograms) 93.58 93.58 [facility] Weight 3920 3920 [facility] pital Temperature Source 7 7 [facility] Temperature 96.8 96.8 [facility] spital Respiratory Effort 1 1 [facility] Respiratory Rate 18 18 [facility] Pulse Assessment Method 4 4 G [facility] Pulse Rate 99 99 [facility] pital Height (Calculated Centimeters) 160.02 160. 02 [facility] Height 63 63 [facility] Blood [facility] 144/88 144/88 [facility] Body Mass Index (BMI) 36.[address] Weight (Calculated Kilograms) 93.58 93.58 [facility] Height (Calculated Centimeters) 160.02 160. 02 [facility] Body Mass Index (BMI) 36.[address] ID Date Data Source [id number] 12/06/2020 01:44:00 PM [facility] spital Name Value Range Interpretation Code Description Data Source(s) Weight (Calculated Kilograms) 93.58 93.58 [facility] Height (Calculated Centimeters) 160.02 160. 02 [facility] Body Mass Index (BMI) 36.[address] ID Date Data Source [id number] 11/28/2020 08:38:00 AM [facility] Name Value Range Interpretation Code Description Data Source(s) Weight (Calculated Kilograms) 106.96 106.96 [facility] Height (Calculated Centimeters) 160.02 160. 02 [facility] Body Mass Index (BMI) 41.8 41.8 [facility] ID Date Data Source [id number] 11/28/2020 12:18:00 PM EST [facility] Name Value Range Interpretation Code Description Data Source(s) Weight (Calculated Kilograms) 93.58 93.58 [facility] Height (Calculated Centimeters) 160.02 160. 02 [facility] Body Mass Index (BMI) 36.5 36.5 [facility] Weight (Calculated Kilograms) 93.58 93.58 [facility] Height (Calculated Centimeters) 160.02 160. 02 [facility] Body Mass Index (BMI) 36.5 36.5 [facility] ID Date Data Source [id number] 11/22/2020 01:11:00 AM EST [facility] Name Value Range Interpretation Code Description Data Source(s) Weight (Calculated Kilograms) 106.96 106.96 [facility] Height (Calculated Centimeters) 160.02 160. 02 [facility] Body Mass Index (BMI) 41.8 41.8 [facility] ID Date Data Source [id number] 01/06/2021 12:26:00 PM EDT [facility] Name Value Range Interpretation Code Description Data Source(s) Weight (Calculated Kilograms) 106.96 106.96 [facility] Height (Calculated Centimeters) 160.02 160. 02 [facility] Body Mass Index (BMI) 41.8 41.8 [facility] ID Date Data Source [id number] 11/15/2020 12:45:00 PM EST [facility] Name Value Range Interpretation Code Description Data Source(s) Weight (Calculated Kilograms) 106.96 106.96 [facility] Height (Calculated Centimeters) 160.02 160. 02 [facility] Body Mass Index (BMI) 41.8 41.8 [facility] ID Date Data Source [id number] 11/14/2020 05:06:[address] [facility] Name Value Range Interpretation Code Description Data Source(s) Weight Measurement Method 1 1 [facility] Weight (Calculated Kilograms) 106.96 106.96 [facility] Weight 3920 3920 [facility] Temperature 97 97 [facility] Respiratory Rate 16 16 [facility] Pulse Rate 62 62 [facility] Height (Calculated Centimeters) 160.02 160. 02 [facility] Height 63 63 [facility] Blood Pressure 104/66 104/66 [facility] Body Mass Index (BMI) 41.8 41.8 [facility] Weight (Calculated Kilograms) 106.96 106.96 [facility] Height (Calculated Centimeters) 160.02 160. 02 [facility] Body Mass Index (BMI) 41.8 41.8 [facility] ID Date Data Source [id number] 11/08/2020 02:04:00 PM EST [facility] Name Value Range Interpretation Code Description Data Source(s) Weight (Calculated Kilograms) 93.58 93.58 [facility] Height (Calculated Centimeters) 160.02 160. 02 [facility] Body Mass Index (BMI) 36.5 36.5 [facility] ID Date Data Source [id number] 11/02/2020 03:02:00 PM EST [facility] Name Value Range Interpretation Code Description Data Source(s) Weight (Calculated Kilograms) 106.96 106.96 [facility] Height (Calculated Centimeters) 160.02 160. 02 [facility] Body Mass Index (BMI) 41.8 41.8 [facility] Weight (Calculated Kilograms) 106.96 106.96 [facility] Height (Calculated Centimeters) 160.02 160. 02 [facility] Body Mass Index (BMI) 41.8 41.8 [facility] Weight (Calculated Kilograms) 106.96 106.96 [facility] Height (Calculated Centimeters) 160.02 160. 02 [facility] Body Mass Index (BMI) 41.8 41.8 [facility] ID Date Data Source [id number] 11/18/2020 09:18:00 AM EST [facility] Name Value Range Interpretation Code Description Data Source(s) Weight Measurement Method 1 1 [facility] Weight (Calculated Kilograms) 106.96 106.96 [facility] Weight 3904 3904 [facility] Temperature 97.3 97.3 [facility] Respiratory Rate 16 16 [facility] Pulse Rate 78 78 [facility] Height (Calculated Centimeters) 160.02 160. 02 [facility] Height 63 63 [facility] Blood Pressure 132/87 132/87 [facility] Body Mass Index (BMI) 41.8 41.8 [facility] Weight Measurement Method 1 1 [facility] Weight (Calculated Kilograms) 106.96 106.96 [facility] Weight 3904 3904 [facility] Temperature 97.3 97.3 [facility] Respiratory Rate 16 16 [facility] Pulse Rate 78 78 [facility] Height (Calculated Centimeters) 160.02 160. 02 [facility] Height 63 63 [facility] Blood Pressure 132/87 132/87 [facility] Body Mass Index (BMI) 41.8 41.8 [facility] Weight (Calculated Kilograms) 106.96 106.96 [facility] Height (Calculated Centimeters) 160.02 160. 02 [facility] Body Mass Index (BMI) 41.8 41.8 [facility] ID Date Data Source [id number] 10/18/2020 12:32:00 AM EST [facility] Name Value Range Interpretation Code Description Data Source(s) Weight (Calculated Kilograms) 106.96 106.96 [facility] Height (Calculated Centimeters) 160.02 160. 02 [facility] Body Mass Index (BMI) 41.8 41.8 [facility] ID Date Data Source [id number] 10/18/2020 11:42:00 AM EST [facility] Name Value Range Interpretation Code Description Data Source(s) Weight (Calculated Kilograms) 106.96 106.96 [facility] Height (Calculated Centimeters) 160.02 160. 02 [facility] Body Mass Index (BMI) 41.8 41.8 [facility] Weight (Calculated Kilograms) 106.96 106.96 [facility] Height (Calculated Centimeters) 160.02 160. 02 [facility] Body Mass Index (BMI) 41.8 41.8 [facility] ID Date Data Source [id number] 10/08/2020 12:05:00 AM EST [facility] Name Value Range Interpretation Code Description Data Source(s) Weight (Calculated Kilograms) 93.58 93.58 [facility] Height (Calculated Centimeters) 160.02 160. 02 [facility] Body Mass Index (BMI) 36.5 36.5 [facility] ID Date Data Source [id number] 11/04/2020 08:53:[address] [facility] Name Value Range Interpretation Code Description Data Source(s) Weight (Calculated Kilograms) 106.96 106.96 [facility] Height (Calculated Centimeters) 160.02 160. 02 [facility] Body Mass Index (BMI) 41.8 41.8 [facility] ID Date Data Source [id number] 09/23/2020 11:52:[address] [facility] Name Value Range Interpretation Code Description Data Source(s) Weight (Calculated Kilograms) 106.96 106.96 [facility] Height (Calculated Centimeters) 160.02 160. 02 [facility] Body Mass Index (BMI) 41.8 41.8 [facility] ID Date Data Source [id number] 09/24/2020 06:41:00 AM [facility] Name Value Range Interpretation Code Description Data Source(s) Weight (Calculated Kilograms) 106.96 106.96 [facility] Height (Calculated Centimeters) 160.02 160. 02 [facility] Body Mass Index (BMI) 41.8 41.8 [facility] Weight Measurement Method 1 1 [facility] Weight (Calculated Kilograms) 106.96 106.96 [facility] Weight 3928.0 3928.0 [facility] Temperature 97.4 97.4 [facility] Respiratory Rate 16 16 [facility] Pulse Rate 74 74 [facility] System Height (Calculated Centimeters) 160.02 160. 02 [facility] Height 63 63 [facility] Blood Pressure 122/70 122/70 [facility] [place] Body Mass Index (BMI) 41.8 41.8 [facility] Weight Measurement Method 1 1 [facility] Weight (Calculated Kilograms) 106.96 106.96 [facility] Weight 3928.0 3928.0 [facility] Temperature 97.4 97.4 [facility] Respiratory Rate 16 16 [facility] Pulse Rate 74 74 [facility] Height (Calculated Centimeters) 160.02 160. 02 [facility] Height 63 63 [facility] Blood Pressure 122/70 122/70 [facility] [place] Body Mass Index (BMI) 41.8 41.8 [facility] Weight (Calculated Kilograms) 106.96 106.96 [facility] Height (Calculated Centimeters) 160.02 160. 02 [facility] Body Mass Index (BMI) 41.8 41.8 [facility] ID Date Data Source [id number] 08/27/2020 12:19:[address] [facility] Hospital Name Value Range Interpretation Code Description Data Source(s) Weight (Calculated Kilograms) 106.96 106.96 [facility] Height (Calculated Centimeters) 160.02 160. 02 [facility] Body Mass Index (BMI) 41.8 41.8 [facility] ID Date Data Source [id number] 09/23/2020 04:57:00 AM [facility] Name Value Range Interpretation Code Description Data Source(s) Weight (Calculated Kilograms) 106.96 106.96 [facility] Respiratory Rate 18 18 [facility] Pulse Assessment Method 4 4 [facility] Pulse Rate 73 73 [facility] Height (Calculated Centimeters) 160.02 160. 02 [facility] Blood Pressure 138/72 138/72 [facility] [place] Body Mass Index (BMI) 41.8 41.8 [facility] Weight (Calculated Kilograms) 106.96 106.96 [facility] Respiratory Rate 18 18 [facility] Pulse Assessment Method 4 4 [facility] Pulse Rate 73 73 [facility] Height (Calculated Centimeters) 160.02 160. 02 [facility] Blood Pressure 138/72 138/72 [facility] [place] Body Mass Index (BMI) 41.8 41.8 [facility] Weight (Calculated Kilograms) 106.96 106.96 [facility] Height (Calculated Centimeters) 160.02 160. 02 [facility] Body Mass Index (BMI) 41.8 41.8 [facility] ID Date Data Source [id number] 10/02/2020 01:21:[address] [facility] Hospital Name Value Range Interpretation Code Description Data Source(s) Weight (Calculated Kilograms) 106.96 106.96 [facility] Height (Calculated Centimeters) 160.02 160. 02 [facility] Body Mass Index (BMI) 41.8 41.8 [facility] Weight (Calculated Kilograms) 106.96 106.96 [facility] Height (Calculated Centimeters) 160.02 160. 02 [facility] Body Mass Index (BMI) 41.8 41.8 [facility] ID Date Data Source [id number] 08/23/2020 06:04:00 AM [facility] Name Value Range Interpretation Code Description Data Source(s) Weight (Calculated Kilograms) 93.58 93.58 [facility] Height (Calculated Centimeters) 160.02 160. 02 [facility] Body Mass Index (BMI) 36.[address] Weight (Calculated Kilograms) 93.58 93.58 [facility] Height (Calculated Centimeters) 160.02 160. 02 [facility] Body Mass Index (BMI) 36.[address] ID Date Data Source [id number] 09/23/2020 08:53:00 AM [facility] Name Value Range Interpretation Code Description Data Source(s) Weight (Calculated Kilograms) 106.96 106.96 [facility] Height (Calculated Centimeters) 160.02 160. 02 [facility] Body Mass Index (BMI) 41.8 41.8 [facility] ID Date Data Source [id number] 09/23/2020 08:24:00 AM EST [facility] Name Value Range Interpretation Code Description Data Source(s) Weight (Calculated Kilograms) 93.58 93.58 [facility] Height (Calculated Centimeters) 160.02 160. 02 [facility] Body Mass Index (BMI) 36.5 365 [facility] Weight (Calculated Kilograms) 93.58 93.58 [facility] Height (Calculated Centimeters) 160.02 160. 02 [facility] Body Mass Index (BMI) 36.5 36.5 [facility] Weight (Calculated Kilograms) 93.58 93.58 [facility] Height (Calculated Centimeters) 160.02 160. 02 [facility] Body Mass Index (BMI) 36.[address] [place] [address] ID Date Data Source [id number] 10/10/2020 12:18:00 AM EST [facility] Name Value Range Interpretation Code Description Data Source(s) Weight (Calculated Kilograms) 93.58 93.58 [facility] Height (Calculated Centimeters) 160.02 160. 02 [facility] Body Mass Index (BMI) 36.5 36.5 [facility] ID Date Data Source [id number] 07/19/2020 02:54:00 PM EDT [facility] Name Value Range Interpretation Code Description Data Source(s) Weight (Calculated Kilograms) 106.96 106.96 [facility] Height (Calculated Centimeters) 160.02 160. 02 [facility] Body Mass Index (BMI) 41.8 41.8 [facility] ID Date Data Source [id number] 07/19/2020 03:04:00 PM EDT [facility] Name Value Range Interpretation Code Description Data Source(s) Weight (Calculated Kilograms) 93.58 93.58 [facility] Height (Calculated Centimeters) 160.02 160. 02 [facility] Body Mass Index (BMI) 36.[address] ID Date Data Source [id number] 07/15/2020 07:52:00 PM [facility] Name Value Range Interpretation Code Description Data Source(s) Weight (Calculated Kilograms) 106.96 106.96 [facility] Height (Calculated Centimeters) 160.02 160. 02 [facility] Body Mass Index (BMI) 41.8 41.8 [facility] ID Date Data Source [id number] 07/12/2020 04:00:00 PM T [facility] Name Value Range Interpretation Code Description Data Source(s) Weight (Calculated Kilograms) 93.58 93.58 [facility] Height (Calculated Centimeters) 160.02 160. 02 [facility] Body Mass Index (BMI) 36.5 365 [facility] Weight (Calculated Kilograms) 93.58 93.58 [facility] Height (Calculated Centimeters) 160.02 160. 02 [facility] Body Mass Index (BMI) 36.5 36.5 [facility] ID Date Data Source [id number] 07/05/2020 10:51:00 AM EDT [facility] Name Value Range Interpretation Code Description Data Source(s) Weight Measurement Method 8 8 [facility] Weight (Calculated Kilograms) 93.58 93.58 [facility] Weight 4000 4000 [facility] pital Temperature Source 3 3 [facility] Temperature 98.3 98.3 [facility] Respiratory Effort 1 1 [facility] Respiratory Rate 22 22 [facility] Pulse Assessment Method 4 4 G [facility] Pulse Rate 75 75 [facility] pital Height (Calculated Centimeters) 160.02 160. 02 [facility] Height 63 63 [facility] Blood Pressure 102/78 102/78 [facility] Body Mass Index (BMI) 36.5 365 [facility] Weight Measurement Method 8 8 [facility] Weight (Calculated Kilograms) 93.58 93.58 [facility] Weight 4000 4000 [facility] pital Temperature Source 7 7 [facility] Temperature 97.0 97.0 [facility] Respiratory Effort 1 1 [facility] Respiratory Rate 17 17 [facility] Pulse Assessment Method 4 4 G [facility] Pulse Rate 92 92 [facility] pital Height (Calculated Centimeters) 160.02 160. 02 [facility] Height 63 63 [facility] Blood Pressure 116/98 116/98 [facility] Body Mass Index (BMI) 36.5 365 [facility] Weight Measurement Method 8 8 [facility] Weight (Calculated Kilograms) 93.58 93.58 [facility] Weight 4000 4000 [facility] pital Temperature Source 7 7 [facility] Temperature 97.0 97.0 [facility] Respiratory Effort 1 1 [facility] Respiratory Rate 17 17 [facility] Pulse Assessment Method 4 4 G [facility] Pulse Rate 92 92 [facility] pital Height (Calculated Centimeters) 160.02 160. 02 [facility] Height 63 63 [facility] Blood Pressure 116/98 116/98 [facility] Body Mass Index (BMI) 36.5 36.5 [facility] Weight (Calculated Kilograms) 93.58 93.58 [facility] Height (Calculated Centimeters) 160.02 160. 02 [facility] Body Mass Index (BMI) 36.5 36.5 [facility] ID Date Data Source [id number] 06/30/2020 11:38:00 PM EDT [facility] Name Value Range Interpretation Code Description Data Source(s) Weight (Calculated Kilograms) 106.96 106.96 [facility] Height (Calculated Centimeters) 160.02 160. 02 [facility] Body Mass Index (BMI) 41.8 41.8 [facility] ID Date Data Source [id number] 07/01/2020 07:18:00 AM EDT [facility] Name Value Range Interpretation Code Description Data Source(s) Weight (Calculated Kilograms) 93.58 93.58 [facility] Height (Calculated Centimeters) 160.02 160. 02 [facility] Body Mass Index (BMI) 36.5 365 [facility] ID Date Data Source [id number] 08/05/2020 09:57:00 AM EDT [facility] Name Value Range Interpretation Code Description Data Source(s) Weight (Calculated Kilograms) 106.96 106.96 [facility] Height (Calculated Centimeters) 160.02 160. 02 [facility] Body Mass Index (BMI) 41.8 41.8 [facility] ID Date Data Source [id number] 10/02/2020 01:20:00 PM EST [facility] Name Value Range Interpretation Code Description Data Source(s) Weight (Calculated Kilograms) 106.96 106.96 [facility] Height (Calculated Centimeters) 160.02 160. 02 [facility] Body Mass Index (BMI) 41.8 41.8 [facility] Weight Measurement Method 1 1 [facility] Weight (Calculated Kilograms) 106.96 106.96 [facility] Weight 4096 4096 [facility] Temperature 98.1 98.1 [facility] Respiratory Rate 16 16 [facility] Pulse Rate 60 60 [facility] Height (Calculated Centimeters) 160.02 160. 02 [facility] Height 64 64 [facility] Blood Pressure 124/66 124/66 [facility] [place] Body Mass Index (BMI) 41.8 41.8 [facility] Weight Measurement Method 1 1 [facility] Weight (Calculated Kilograms) 106.96 106.96 [facility] Weight 4096 4096 [facility] Temperature 98.1 98.1 [facility] Respiratory Rate 16 16 [facility] Pulse Rate 60 60 [facility] Height (Calculated Centimeters) 160.02 160. 02 [facility] Height 64 64 [facility] Blood Pressure 124/66 124/66 [facility] [place] Body Mass Index (BMI) 41.8 41.8 [facility] Weight (Calculated Kilograms) 106.96 106.96 [facility] Height (Calculated Centimeters) 160.02 160. 02 [facility] Body Mass Index (BMI) 41.8 41.8 [facility] ID Date Data Source [id number] 07/26/2020 11:58:00 AM EDT [facility] Name Value Range Interpretation Code Description Data Source(s) Weight (Calculated Kilograms) 106.96 106.96 [facility] Height (Calculated Centimeters) 160.02 160. 02 [facility] Body Mass Index (BMI) 41.8 41.8 [facility] ID Date Data Source [id number] 10/02/2020 01:20:00 PM EST [facility] Name Value Range Interpretation Code Description Data Source(s) Weight (Calculated Kilograms) 106.96 106.96 [facility] Height (Calculated Centimeters) 160.02 160. 02 [facility] Body Mass Index (BMI) 41.8 41.8 [facility] Weight Measurement Method 1 1 [facility] Weight (Calculated Kilograms) 106.96 106.96 [facility] Weight 3968 3968 [facility] Temperature 97.8 97.8 [facility] Respiratory Rate 16 16 [facility] Pulse Rate 74 74 [facility] Height (Calculated Centimeters) 160.02 160. 02 [facility] Height 63 63 [facility] Blood Pressure 128/74 128/74 [facility] [place] Body Mass Index (BMI) 41.8 41.8 [facility] Weight Measurement Method 1 1 [facility] Weight (Calculated Kilograms) 106.96 106.96 [facility] Weight 3968 3968 [facility] Temperature 97.8 97.8 [facility] Respiratory Rate 16 16 [facility] Pulse Rate 74 74 [facility] Height (Calculated Centimeters) 160.02 160. 02 [facility] Height 63 63 [facility] Blood Pressure 128/74 128/74 [facility] [place] Body Mass Index (BMI) 41.8 41.8 [facility] Weight (Calculated Kilograms) 106.96 106.96 [facility] Height (Calculated Centimeters) 160.02 160. 02 [facility] Body Mass Index (BMI) 41.8 41.8 [facility] Weight (Calculated Kilograms) 106.96 106.96 [facility] Height (Calculated Centimeters) 160.02 160. 02 [facility] Body Mass Index (BMI) 41.8 41.8 [facility] ID Date Data Source [id number] 07/16/2020 09:56:00 AM EDT [facility] Name Value Range Interpretation Code Description Data Source(s) Weight (Calculated Kilograms) 106.96 106.96 [facility] Height (Calculated Centimeters) 160.02 160. 02 [facility] Body Mass Index (BMI) 41.8 41.8 [facility] Weight Measurement Method 1 1 [facility] Weight (Calculated Kilograms) 106.96 106.96 [facility] Weight 3872 3872 [facility] Temperature 97.1 97.1 [facility] Respiratory Rate 16 16 [facility] Pulse Rate 68 68 [facility] Height (Calculated Centimeters) 160.02 160. 02 [facility] Height 63 63 [facility] Blood Pressure 126/79 126/79 [facility] [place] Body Mass Index (BMI) 41.8 41.8 [facility] Weight Measurement Method 1 1 [facility] Weight (Calculated Kilograms) 106.96 106.96 [facility] Weight 3872 3872 [facility] Temperature 97.1 97.1 [facility] Respiratory Rate 16 16 [facility] Pulse Rate 68 68 [facility] Height (Calculated Centimeters) 160.02 160. 02 [facility] Height 63 63 [facility] Blood Pressure 126/79 126/79 [facility] [place] Body Mass Index (BMI) 41.8 41.8 [facility] Weight (Calculated Kilograms) 106.96 106.96 [facility] Height (Calculated Centimeters) 160.02 160. 02 [facility] Body Mass Index (BMI) 41.8 41.8 [facility]
[2021-08-30] MEDS ORDERED: ROPI1TAB3 PO (08:09)
[2021-08-30] MEDS ORDERED: HOME MED LIST COMPLETE! XX SCH (08:20)
--- NOTE | 2021-08-30 08:55 | HPEPDOC ---
[facility] Medical History & Physical Date of Admission Aug 30, 2021 Date of Service: Aug 30, 2021 Attending Physician: Jen Quick MD History and Physical CHIEF COMPLAINT: right face swelling HISTORY OF PRESENT ILLNESS: Patient is a 55 y/o F with PMH of Psoriatic arthritis , Myasthenia gravis hx, asthma, HTN, GERD, peripheral neuropathy, chronic back pain who presented to [facility] ER with chief complaint of worsening tongue/facial swelling with pain over past 1 week. Patient recently had tooth repaired by Dr. Castillo on 08/05/21 for long standing tooth pain, a crack that he repaired. She continued to have pain since that time. Over the past 1 week she noticed increased right face swelling along side of face under ear, jawline, inner ear pain. She noticed tongue swelling beginning within this past week with pain increased under tongue. Also has difficulty swallowing at times, fevers, chills, lightheadedness,dizziness. Denies ear drainage, chest pain, shortness of breath, n/v/d. Patient taking tylenol, motrin for pain but had little improvement. Due to increased tongue swelling and right face/tongue pain increased to 10/10 and she came to the ER last evening for further evaluation. In ER, VS were stable. CT scan showed tonsillitis, no abscess. No infected teeth were noted on oral exam by the ER provider or myself. An obvious right tongue swelling seen pronounced under the tongue on that side. CT also incidentally saw thyroid nodules, needing additional w/u. ENT was contacted and recommended admission for tongue swelling. Patient was admitted for facial/tongue swelling, tonsillitis treatment under observation status. ROS: negative except mentioned above PAST MEDICAL HISTORY: Psoriatic arthritis Myasthenia gravis hx Asthma HTN GERD peripheral neuropathy Chronic back pain RLS GI dysmotility Esophageal strictures s/p dilatation PAST SURGICAL HISTORY: Lumbar spinal fusion Right knee synovectomy Right gluteus medius repair 4 infusa port placements 4 esophageal dilatation SOCIAL HISTORY: Occasional smoker, 30 + yrs, 1-2 cigarettes a day. Denies alcohol or drug use. Lives locally. PCP- Valerie Tarango. FAMILY HISTORY: mother- CAD. at 71 father- CAD. at 83 y/o sister #1- breast cancer. alive sister #2- uterine. alive ALLERGIES: Please see below. NOTE: corticosteroids are not true allergy HOME MEDICATIONS: Please see below. PHYSICAL EXAMINATION: VS: STable on RA CONSTITUTIONAL: No acute distress, resting comfortably, AAO x 3 EYES: PERRLA, EOM intact HENT, MOUTH: atraumatic, moist mucous membranes, tongue diffusely swollen; however, more swelling located under the right side of the tongue. Tonsils swollen; however not touching, no plaques or abscess seen NECK: SUPPLE, no JVD, + cervical lymphadenopathy, no carotid bruit CV: Regular rate and rhythm, S1S2 normal, no murmurs/rubs/gallops RESPIRATORY: Clear to auscultation bilaterally, no rales/rhonchi/wheezes GI: BS positive in 4 quadrants, soft, nontender, nondistended, no rebound or guarding, no organomegaly : Deferred MUSCULOSKELETAL: Normal ROM. No cyanosis, clubbing, swelling, joint deformity, extremity edema INTEGUMENTARY: Intact, no rashes, no lesions, no erythema NEUROLOGIC: Cranial Nerves II-XII are intact, no focal deficits PSYCHIATRIC: Mood and affect are normal LABORATORY DATA: Please see below IMAGING: CT neck: 1. Prominent bilateral palatine tonsils with few prominent right level 2 cervical lymph nodes which could be reactive. Correlate clinically for tonsillitis. No fluid collection seen to suggest an abscess. 2. Heterogeneous thyroid gland likely containing poorly defined nodules measuring up to 3 cm on the left and 2 cm on the right. Correlation with thyroid ultrasound is suggested. Thyroid US: pending ASSESSMENT: 55 y/o F with PMH of Psoriatic arthritis , Myasthenia gravis hx, asthma, HTN, GERD, peripheral neuropathy, chronic back pain admitted for facial/tongue swelling, tonsillitis treatment under observation status. PLAN: Facial/tongue swelling, tonsillitis -Patient may have some underlying pain from recent tooth surgery but tooth abscess is not of concern currently -ENT consulted in ER, suggested IV abx, observation for swelling- monitor to ensure does not worsen -C/w CLD, Unasyn IV, pain control Thyroid nodules, incidental findings -F/u thyroid US -TSH, T3 and free t4 pending Cracked tooth / persistent tooth pain -S/p repair -Currently does not look infected, no concern for abscess currently -NEeds close f/u after discharge. Psoriatic arthritis -Remicaide o/p Asthma -On RA -Albuterol PRN HTN -C/w home meds GERD -PPI peripheral neuropathy -C/w home meds Chronic back pain -C/w pain meds here, home RLS -ropinirole GI dysmotility / Esophageal strictures s/p dilatation -F/u o/p DVT px -Lovenox DISPOSITION: Admitted under observation status. ENT called from ER, consider official consult if swelling does not improve. Plan is home when medically improved. Vital Signs Vital Signs Date Time Temp Pulse Resp B/P (MAP) Pulse Ox O2 Delivery O2 Flow Rate FiO2 08/30/21 08:05 79 18 132/77 (95) 94 Room Air 08/30/21 06:30 99.1 Laboratory Data Labs 24H Laboratory Tests 2 08/30/21 04:51: POC Glucose (Misc Panel) 124H, POC Sodium (Misc Panel) 139, POC Potassium (Misc Panel) 4.3, POC Chloride (Misc Panel) 103, POC Total CO2 (Misc Panel) 23.0, POC Blood Urea Nitrogen (Misc Panel 8, POC Ionized Calcium (Misc Panel) 4.5, POC Creatinine (Misc Panel) 0.6, POC Hematocrit (Misc Panel) 39.0 08/30/21 05:35: Immature Granulocyte % (Auto) 0.6, Neutrophils (%) (Auto) 71.9H, Lymphocytes (%) (Auto) 19.0L, Monocytes (%) (Auto) 7.6, Eosinophils (%) (Auto) 0.6, Basophils (%) (Auto) 0.3, Neutrophils # (Auto) 11.6H, Lymphocytes # (Auto) 3.1, Monocytes # (Auto) 1.2H, Eosinophils # (Auto) 0.1, Basophils # (Auto) 0.1, Nucleated Red Blood Cells % (auto) 0.0 08/30/21 08:25: CBC/BMP Laboratory Tests 08/30/21 05:35 Home Medications Scheduled Biotin (Biotin) 1 Mg Capsule, 1 MG PO DAILY Gabapentin (Gabapentin) 300 Mg Cap, 300 MG PO TID Gabapentin (Gabapentin) 600 Mg Tablet, 900 MG PO TID Infliximab Injection (Remicade) 100 Mg Vial, 900 MG IV QMONTH Losartan Potassium (Losartan Potassium) 100 Mg Tablet, 100 MG PO DAILY Omeprazole (Omeprazole) 20 Mg Capsule.dr, 20 MG PO DAILY Pantoprazole Sodium (Pantoprazole Sodium) 40 Mg Tablet.dr, 40 MG PO BID Ropinirole HCl (Ropinirole HCl) 1 Mg Tab, 1 MG PO BID Ropinirole HCl (Ropinirole HCl) 1 Mg Tablet, 2 MG PO QPM NO LATER THAN 1999 Scheduled PRN Acetaminophen (Tylenol Extra Strength) 500 Mg Tablet, 1,000 MG PO Q6H PRN for FEVER Albuterol Sulfate (Ventolin Hfa) 18 Gm Hfa.aer.ad, 2 PUFFS INH QID PRN for SOB/WHEEZING Epinephrine (Epinephrine) 0.3 Mg/0.3 Ml Auto.injct, 0.3 ML IM ASDIRECTED PRN for ANAPHYLAXIS Polyvinyl Alcohol (Artificial Tears) 1.4 % Rica, 1 DROP OU Q1H PRN for DRY EYES Miscellaneous Medications Ibuprofen (Ibuprofen) 200 Mg Capsule, 800 MG PO Allergies Coded Allergies: Corticosteroids (Glucocorticoids) (Verified Allergy, Unknown, 03/10/20) Sulfa (Sulfonamide Antibiotics) (Verified Allergy, Unknown, 03/10/20) metoclopramide (Verified Allergy, Unknown, 03/10/20) sorbitan esters (Verified Allergy, Unknown, 03/10/20) ustekinumab (Verified Allergy, Unknown, 03/10/20) A-FIB/CHADSVASC A-FIB History Current/History of A-Fib/PAF?: No Current PO Anticoag Therapy: No Age/Risk Factor Scoring CHADSVASC: CHADSVASC Response (Comments) Value Age Risk Factor Age < 65 years old 0 Gender Risk Factor Female 1 Hx of CHF No 0 Hx of HTN Yes 1 Hx of Stroke/TIA/or VTE No 0 Hx of Diabetes No 0 Hx of Vascular Disease No 0 Total 2 Treatment Treatment ordered: Other Other anticoagulant ordered: Jen Serra MD Aug 30, 2021 08:55
[2021-08-30] MEDS: LOSARTAN 50MG TABLET PO SCH (09:00)
[2021-08-30 09:03] LABS: ALBUMIN 3.7 GM/DL (3.2-5.2); ALT/SGPT 29 U/L (12-78); BILIRUBIN,TOTAL 0.5 MG/DL (0.2-1.0); BLOOD UREA NITROGEN 8 MG/DL (7-18); CARBON DIOXIDE LEVEL 27 MEQ/L (21-32); CHLORIDE LEVEL 105 MEQ/L (98-107); CREATININE FOR GFR 0.77 MG/DL (0.55-1.30); GLOMERULAR FILTRATION RATE > 60.0 (>51); GLUCOSE, FASTING 116 MG/DL (70-100); POTASSIUM SERUM 4.6 MEQ/L (3.5-5.1); SODIUM LEVEL 139 MEQ/L (136-145); TOTAL PROTEIN 7.9 GM/DL (6.4-8.2)
[2021-08-30 09:11] LABS: INR 0.95
[2021-08-30 09:12] LABS: PARTIAL THROMBOPLASTIN TIME 30.7 SECONDS (25.9-37.0)
[2021-08-30 09:43] LABS: RSV AMPLIFICATION NEGATIVE (NEGATIVE)
[2021-08-30] MEDS: ACETAMINOPHEN TAB 650MG DOSE (2X325MG) PO PRN ×3 (10:38→23:38)
[2021-08-30] MEDS ORDERED: ALBUTEROL 90 MCG/ACT 8GM HFA INHALER INH PRN (11:50)
[2021-08-30] MEDS ORDERED: IBUPROFEN 200MG TAB PO PRN (11:50)
[2021-08-30] MEDS ORDERED: POLYVINYL ALCOHOL OPHTH SOLN 15 ML(LIQUITEARS) OU PRN (11:50)
[2021-08-30] MEDS: AMPICILLIN SOD/SULBACTAM SOD 3 GM in D5W MINI-BAG PLUS 100 ML IV SCH ×2 (15:15→21:50)
[2021-08-30] MEDS: rOPINIRole 1MG TAB PO SCH (15:15)
[2021-08-30] MEDS: GABAPENTIN 300 MG CAP PO SCH ×2 (15:15→21:50)
[2021-08-30] MEDS ORDERED: GABAPENTIN 300 MG CAP PO SCH (16:00)
[2021-08-30] MEDS ORDERED: rOPINIRole 2MG TAB PO SCH (19:00)
[2021-08-30 20:00] VITALS: BP 136/82
[2021-08-30] MEDS: PANTOPRAZOLE 40MG TAB (PROTONIX) PO SCH (21:50)
[2021-08-31] MEDS: AMPICILLIN SOD/SULBACTAM SOD 3 GM in D5W MINI-BAG PLUS 100 ML IV SCH ×4 (02:23→10:57)
[2021-08-31] MEDS: ACETAMINOPHEN TAB 650MG DOSE (2X325MG) PO PRN ×2 (05:49→09:54)
[2021-08-31 06:00] VITALS: BP 135/81
[2021-08-31 06:12] LABS: HEMATOCRIT 37.9 % (36.0-47.0); HEMOGLOBIN 12.4 g/dl (12.0-15.5); MEAN CORPUSCULAR HEMOGLOBIN 28.1 pg (27.0-33.0); MEAN CORPUSCULAR HGB CONC 32.7 g/dl (32.0-36.5); MEAN CORPUSCULAR VOLUME 85.7 fl (80.0-96.0); PLATELET COUNT, AUTOMATED 334 10^3/uL (150-450); RED BLOOD COUNT 4.42 10^6/uL (4.00-5.40); WHITE BLOOD COUNT 10.2 10^3/uL (4.0-10.0)
[2021-08-31 06:44] LABS: ALBUMIN 3.3 GM/DL (3.2-5.2); ALT/SGPT 25 U/L (12-78); BILIRUBIN,TOTAL 0.3 MG/DL (0.2-1.0); BLOOD UREA NITROGEN 10 MG/DL (7-18); CALCIUM LEVEL 9.1 MG/DL (8.5-10.1); CARBON DIOXIDE LEVEL 29 MEQ/L (21-32); CHLORIDE LEVEL 106 MEQ/L (98-107); CREATININE FOR GFR 0.82 MG/DL (0.55-1.30); GLOMERULAR FILTRATION RATE > 60.0 (>51); GLUCOSE, FASTING 108 MG/DL (70-100); POTASSIUM SERUM 4.5 MEQ/L (3.5-5.1); SODIUM LEVEL 139 MEQ/L (136-145); TOTAL PROTEIN 7.3 GM/DL (6.4-8.2)
[2021-08-31] MEDS ORDERED: AUGM875T28 PO (07:21)
[2021-08-31] MEDS ORDERED: ACET1TAB55 PO (07:21)
[2021-08-31] MEDS ORDERED: PROB1CAP10 PO (07:21)
[2021-08-31] MEDS ORDERED: ISOVUE-370 76% 100ML VIAL As Ordered ONE (08:29)
[2021-08-31] MEDS ORDERED: ENOXAPARIN 40MG/0.4ML SYRINGE (J1650 PER 10MG) SC SCH (09:00)
[2021-08-31] MEDS: LOSARTAN 50MG TABLET PO SCH (09:00)
[2021-08-31] MEDS ORDERED: OMEPRAZOLE 20 MG CAP PO SCH (09:00)
--- NOTE | 2021-08-31 09:21 | REP ---
INDICATION: r/o dental abscess COMPARISON: None. TECHNIQUE: Axial noncontrast images through the facial bones to include the mandible with coronal and sagittal re-formations. 75 cc Isovue 370 intravenous contrast material administered without complication. This CT examination was performed using the following dose reduction techniques: Automated exposure control, adjustment of mA and/or kv according to the patient's size, and use of iterative reconstruction technique. FINDINGS: The osseous structures are intact and there is no evidence for injury or osseous pathology. The sinuses and mastoid air cells are all well aerated and clear. No evidence for acute or chronic sinusitis. The bilateral orbits including the globes and intraconal contents appear symmetric and normal. The nasopharyngeal through aryan pharyngeal soft tissue structures including neurovascular bundles, glandular tissue, and lymph nodes appear essentially symmetric and normal. No parapharyngeal or retropharyngeal soft tissue swelling or inflammatory changes are appreciated. The oropharynx including the tongue and oral cavity are normal. There is no evidence for abscess or phlegmon. IMPRESSION: Normal contrast-enhanced maxillofacial CT. No evidence for acute pathology. <Electronically signed by Shawn De Anda > 08/31/21 1039
[2021-08-31] MEDS: GABAPENTIN 300 MG CAP PO SCH (09:54)
[2021-08-31] MEDS: rOPINIRole 1MG TAB PO SCH (09:54)
[2021-08-31] MEDS: PANTOPRAZOLE 40MG TAB (PROTONIX) PO SCH (09:54)
--- NOTE | 2021-08-31 18:04 | DS.PDOC ---
Discharge Summary General Date of Admission Aug 30, 2021 at 07:33 Date of Discharge 08/31/21 Attending Physician: Jen Quick MD Discharge Summary PROCEDURES PERFORMED DURING STAY: None ADMITTING DIAGNOSES: Facial/tongue swelling possibly 2/2 to infection of tooth Tonsillitis Thyroid nodules, incidental findings Cracked tooth / persistent tooth pain Psoriatic arthritis Asthma HTN GERD peripheral neuropathy Chronic back pain RLS GI dysmotility / Esophageal strictures s/p dilatation DISCHARGE DIAGNOSES: Facial/tongue swelling possibly 2/2 to infection of tooth Tonsillitis Thyroid nodules, incidental findings Cracked tooth / persistent tooth pain Psoriatic arthritis Asthma HTN GERD peripheral neuropathy Chronic back pain RLS GI dysmotility / Esophageal strictures s/p dilatation COMPLICATIONS/CHIEF COMPLAINT: Hypoglossal Swelling. Sublingual Lymphadenopthy. HISTORY OF PRESENT ILLNESS: Patient is a 55 y/o F with PMH of Psoriatic arthritis , Myasthenia gravis hx, asthma, HTN, GERD, peripheral neuropathy, chronic back pain who presented to [facility] ER with chief complaint of worsening tongue/facial swelling with pain over past 1 week. Patient recently had tooth repaired by Dr. Castillo on 08/05/21 for long standing tooth pain, a crack that he repaired. She continued to have pain since that time. Over the past 1 week she noticed increased right face swelling along side of face under ear, jawline, inner ear pain. She noticed tongue swelling beginning within this past week with pain increased under tongue. Also has difficulty swallowing at times, fevers, chills, lightheadedness,dizziness. Denies ear drainage, chest pain, shortness of breath, n/v/d. Patient taking tylenol, motrin for pain but had little improvement. Due to increased tongue swelling and right face/tongue pain increased to 10/10 and she came to the ER last evening for further evaluation. HOSPITAL COURSE: In ER, VS were stable. CT scan showed tonsillitis, no abscess. No infected teeth were noted on oral exam by the ER provider or myself. An obvious right tongue swelling seen pronounced under the tongue on that side. CT also incidentally saw thyroid nodules, needing additional w/u. ENT was contacted and recommended admission for tongue swelling. Patient was admitted for facial/tongue swelling, tonsillitis treatment under observation status. The following issues were either treated or managed while admitted. Facial/tongue swelling possibly 2/2 to infection of tooth / Tonsillitis -Patient may have some underlying pain from recent tooth surgery but tooth abscess is not of concern, ruled out on CT maxillofacial today -ENT consulted in ER, suggested IV abx until swelling improved -Decreased swelling today, no issues with swallowing. -D/c with PO augmentin for 10 days, f/u with dentist and PCP , pain control Thyroid nodules -Per patient, these have been looked into in the past -F/u thyroid US as o/p -TSH, T3 wnl free t4 pending Cracked tooth / persistent tooth pain -S/p repair -Currently does not look infected, no concern for abscess currently -Needs close f/u after discharge. Psoriatic arthritis -Remicaide o/p Asthma -stable HTN -C/w home meds GERD -PPI peripheral neuropathy -C/w home meds Chronic back pain -C/w pain meds here, home RLS -ropinirole GI dysmotility / Esophageal strictures s/p dilatation -F/u o/p DISCHARGE MEDICATIONS: Please see below. ALLERGIES: Please see below. PHYSICAL EXAMINATION ON DISCHARGE: VS: Stable on RA CONSTITUTIONAL: No acute distress, resting comfortably, AAO x 3 EYES: PERRLA, EOM intact HENT, MOUTH: atraumatic, moist mucous membranes, tongue much improved, less swollen today. Swelling that was located under the right side of the tongue has decreased. Tonsils less swollen; no plaques or abscess seen NECK: SUPPLE, no JVD, + cervical lymphadenopathy, no carotid bruit CV: Regular rate and rhythm, S1S2 normal, no murmurs/rubs/gallops RESPIRATORY: Clear to auscultation bilaterally, no rales/rhonchi/wheezes GI: BS positive in 4 quadrants, soft, nontender, nondistended, no rebound or guarding, no organomegaly : Deferred MUSCULOSKELETAL: Normal ROM. No cyanosis, clubbing, swelling, joint deformity, extremity edema INTEGUMENTARY: Intact, no rashes, no lesions, no erythema NEUROLOGIC: Cranial Nerves II-XII are intact, no focal deficits PSYCHIATRIC: Mood and affect are normal LABORATORY DATA: Please see below. IMAGING: CT maxillofacial: Normal contrast-enhanced maxillofacial CT. No evidence for acute pathology. CT neck: 1. Prominent bilateral palatine tonsils with few prominent right level 2 cervical lymph nodes which could be reactive. Correlate clinically for tonsillitis. No fluid collection seen to suggest an abscess. 2. Heterogeneous thyroid gland likely containing poorly defined nodules measuring up to 3 cm on the left and 2 cm on the right. Correlation with thyroid ultrasound is suggested. PROGNOSIS: Good ACTIVITY: As tolerated DIET: 2 gm sodium DISPOSITION: 01 Home, Self-Care. DISCHARGE INSTRUCTIONS / ITEMS TO FOLLOWUP ON ON OUTPATIENT: 1. Recommend following up with both PCP and dentist after discharge. 2. Recommend o/p thyroid US. DISCHARGE CONDITION: Stable TIME SPENT ON DISCHARGE: 35 minutes. Vital Signs/I&Os Vital Signs Date Time Temp Pulse Resp B/P (MAP) Pulse Ox O2 Delivery O2 Flow Rate FiO2 08/31/21 06:00 97.5 70 19 135/81 (99) 95 Room Air I&O- Last 24 Hours up to 6 AM 08/31/21 06:00 Intake Total 300 ml Output Total 0 ml Balance 300 ml Laboratory Data Labs 24H Laboratory Tests 2 08/31/21 05:35: Nucleated Red Blood Cells % (auto) 0.0, Anion Gap 4L, Glomerular Filtration Rate > 60.0, Calcium Level 9.1, Total Bilirubin 0.3, Aspartate Amino Transf (AST/SG OT) 14, Alanine Aminotransferase (ALT/SGPT) 25, Alkaline Phosphatase 121H, Total Protein 7.3, Albumin 3.3, Albumin/Globulin Ratio 0.8L CBC/BMP Laboratory Tests 08/31/21 05:35 Discharge Medications Scheduled Amoxicillin/Potassium Clav (Augmentin 875-125 Tablet) 1 Each Tablet, 1 TAB PO BID Biotin (Biotin) 1 Mg Capsule, 1 MG PO DAILY, (Reported) Gabapentin (Gabapentin) 600 Mg Tablet, 900 MG PO TID, (Reported) Infliximab Injection (Remicade) 100 Mg Vial, 900 MG IV QMONTH, (Reported) Lactobacillus Acidophilus (Probiotic Acidophilus) 1.5 Mg Capsule, 1 CAP PO BIDWM Losartan Potassium (Losartan Potassium) 100 Mg Tablet, 100 MG PO DAILY, (Reported) Omeprazole (Omeprazole) 20 Mg Capsule.dr, 20 MG PO QHS, (Reported) Pantoprazole Sodium (Pantoprazole Sodium) 40 Mg Tablet.dr, 40 MG PO BID, (Reported) Ropinirole HCl (Ropinirole HCl) 1 Mg Tab, 1 MG PO BID, (Reported) 2ND DOSE IN AFTERNOON Ropinirole HCl (Ropinirole HCl) 1 Mg Tablet, 2 MG PO QPM, (Reported) NO LATER THAN 1999 Scheduled PRN Acetaminophen (Acetaminophen) 325 Mg Tablet, 650 MG PO Q6HP PRN for MILD PAIN or TEMP > 101 Albuterol Sulfate (Ventolin Hfa) 18 Gm Hfa.aer.ad, 2 PUFFS INH QID PRN for SOB/WHEEZING, (Reported) Epinephrine (Epinephrine) 0.3 Mg/0.3 Ml Auto.injct, 0.3 ML IM ASDIRECTED PRN for ANAPHYLAXIS, (Reported) Polyvinyl Alcohol (Artificial Tears) 1.4 % [place], 1 DROP OU Q1H PRN for DRY EYES, (Reported) Miscellaneous Medications Ibuprofen (Ibuprofen) 200 Mg Capsule, 800 MG PO, (Reported) Allergies Coded Allergies: Corticosteroids (Glucocorticoids) (Verified Allergy, Unknown, 03/10/20) Sulfa (Sulfonamide Antibiotics) (Verified Allergy, Unknown, 03/10/20) metoclopramide (Verified Allergy, Unknown, 03/10/20) sorbitan esters (Verified Allergy, Unknown, 03/10/20) ustekinumab (Verified Allergy, Unknown, 03/10/20) Jen Quick MD Aug 31, 2021 18:04
[2021-09-01 09:58] LABS: TOTAL T3 138.1 NG/DL (60.0-181.0)
== END 2021-08-31 11:45 | disposition home or self-care (01) ==
LOC: M ED 01:15 → M ED INP 07:33 → ENRESERV 10:18 → M MS5PR 11:00
PROVIDERS: ADMIT Internal Medicine; ATTEND Internal Medicine
DX: R22.0 Localized swelling, mass and lump, head (principal); K04.7 Periapical abscess without sinus; J03.90 Acute tonsillitis, unspecified; E04.1 Nontoxic single thyroid nodule; K03.81 Cracked tooth; L40.52 Psoriatic arthritis mutilans; J45.909 Unspecified asthma, uncomplicated; I10 Essential (primary) hypertension; K21.9 Gastro-esophageal reflux disease without esophagitis; G90.09 Other idiopathic peripheral autonomic neuropathy; G70.00 Myasthenia gravis without (acute) exacerbation; Z88.8 Allergy status to other drugs, medicaments and biological substances; Z79.899 Other long term (current) drug therapy
CPT/HCPCS: 36415; 70487; 70491; 80047; 80053; 84439; 84443; 84480; 85025; 85027; 85610; 85730; 87631; 96365; 96366; 96375; 99284; G0378; J1885; Q9967

== ENCOUNTER → 2022-02-05 | Outpatient (CLI) | payer MEDICAID, MEDICARE ==
[~2022-02-05] MED LIST changes: +ACET-897 PO; +ACET1TAB55 PO; +AUGM875T28 PO; +BIOT1CAP2 PO; +GABA600T4 PO; +IBUP200C25 PO; +LOSA100T45 PO; +OMEP-173 PO; -OMEP-218 PO; +PANT40TA29 PO; +PROB1CAP10 PO; +VENTAER INH
[2022-02-05 18:12] LABS: MAGNESIUM LEVEL 1.8 MG/DL (1.8-2.4)
[2022-02-05 18:26] LABS: TOTAL 25(OH) VITAMIN D 15.6 NG/ML (30.0-100.0)
== END ==
LOC: M LAB 15:47
PROVIDERS: ATTEND Internal Medicine Gastroenterology
DX: R13.10 Dysphagia, unspecified (principal); K22.2 Esophageal obstruction; K44.9 Diaphragmatic hernia without obstruction or gangrene; K59.00 Constipation, unspecified; Z86.010 Personal history of colon polyps; K75.81 Nonalcoholic steatohepatitis (NASH); E56.9 Vitamin deficiency, unspecified

== ENCOUNTER → 2022-02-05 | Outpatient (CLI) | payer MEDICAID, MEDICARE ==
[2022-02-05 18:02] LABS: BASO % 0.3 % (0.0-1.0); EOS # 0.2 10^3/uL (0.0-0.5); EOS % 1.6 % (0.0-3.0); HEMATOCRIT 40.1 % (36.0-47.0); HEMOGLOBIN 13.4 g/dl (12.0-15.5); LYMPH % 31.3 % (24.0-44.0); MEAN CORPUSCULAR HEMOGLOBIN 28.6 pg (27.0-33.0); MEAN CORPUSCULAR HGB CONC 33.4 g/dl (32.0-36.5); MEAN CORPUSCULAR VOLUME 85.7 fl (80.0-96.0); MONO # 0.8 10^3/uL (0.0-0.8); MONO % 6.3 % (2.0-8.0); NEUTROPHILS # 7.7 10^3/uL (1.5-8.5); PLATELET COUNT, AUTOMATED 291 10^3/uL (150-450); RED BLOOD COUNT 4.68 10^6/uL (4.00-5.40); WHITE BLOOD COUNT 12.9 10^3/uL (4.0-10.0)
[2022-02-05 18:51] LABS: ALBUMIN 3.6 GM/DL (3.2-5.2); ALT/SGPT 35 U/L (12-78); BILIRUBIN,TOTAL 0.5 MG/DL (0.2-1.0); BLOOD UREA NITROGEN 13 MG/DL (7-18); CALCIUM LEVEL 9.1 MG/DL (8.5-10.1); CARBON DIOXIDE LEVEL 28 MEQ/L (21-32); CHLORIDE LEVEL 105 MEQ/L (98-107); CREATININE FOR GFR 0.72 MG/DL (0.55-1.30); GLOMERULAR FILTRATION RATE > 60.0 (>51); GLUCOSE, FASTING 100 MG/DL (70-100); POTASSIUM SERUM 3.9 MEQ/L (3.5-5.1); SODIUM LEVEL 139 MEQ/L (136-145); TOTAL PROTEIN 7.3 GM/DL (6.4-8.2); VITAMIN B12 LEVEL 406 PG/ML
[2022-02-10 14:47] LABS: ALBUMIN % 56.3 % (55.8-66.1); ALPHA-2-GLOBULINS % 10.8 % (7.1-11.8); BETA-1-GLOBULINS % 6.3 % (4.7-7.2)
[2022-02-10 14:48] LABS: ALBUMIN 4.11 GM/DL (3.29-5.55); ALPHA-1-GLOBULINS 0.29 GM/DL (0.17-0.41); ALPHA-2-GLOBULINS 0.79 GM/DL (0.42-0.99); BETA-1-GLOBULINS 0.46 GM/DL (0.28-0.60); BETA-2-GLOBULINS 0.39 GM/DL (0.19-0.55); BETA-2-GLOBULINS % 5.4 % (3.2-6.5); GAMMA GLOBULIN % 17.2 % (11.1-18.8); GAMMA GLOBULINS 1.26 GM/DL (0.65-1.58)
== END ==
LOC: M LAB 15:49
PROVIDERS: ATTEND Psychiatry & Neurology Neurology
DX: H02.409 Unspecified ptosis of unspecified eyelid (principal); R13.10 Dysphagia, unspecified; K22.2 Esophageal obstruction; K44.9 Diaphragmatic hernia without obstruction or gangrene; K59.00 Constipation, unspecified; Z86.010 Personal history of colon polyps; K75.81 Nonalcoholic steatohepatitis (NASH); E56.9 Vitamin deficiency, unspecified

== ENCOUNTER 2022-04-14 22:04 | Emergency (ER) | payer MEDICARE ==
[~2022-04-14] VITALS: Ht 160 cm; Wt 108.3 kg
[2022-04-14 23:02] LABS: BASO # 0.1 10^3/uL (0.0-0.2); BASO % 0.4 % (0.0-1.0); EOS # 0.2 10^3/uL (0.0-0.5); EOS % 1.4 % (0.0-3.0); HEMATOCRIT 40.2 % (36.0-47.0); HEMOGLOBIN 13.6 g/dl (12.0-15.5); LYMPH # 4.4 10^3/uL (1.5-5.0); LYMPH % 36.5 % (24.0-44.0); MEAN CORPUSCULAR HEMOGLOBIN 28.1 pg (27.0-33.0); MEAN CORPUSCULAR HGB CONC 33.8 g/dl (32.0-36.5); MEAN CORPUSCULAR VOLUME 83.1 fl (80.0-96.0); MONO # 0.7 10^3/uL (0.0-0.8); MONO % 5.6 % (2.0-8.0); NEUTROPHILS # 6.7 10^3/uL (1.5-8.5); NEUTROPHILS % 55.8 % (36.0-66.0); PLATELET COUNT, AUTOMATED 318 10^3/uL (150-450); RED BLOOD COUNT 4.84 10^6/uL (4.00-5.40); WHITE BLOOD COUNT 12.1 10^3/uL (4.0-10.0)
[2022-04-14 23:12] LABS: INR 0.88; PROTHROMBIN TIME 12.3 SECONDS (12.7-14.5)
[2022-04-14 23:22] LABS: BLOOD UREA NITROGEN 19 MG/DL (7-18); CARBON DIOXIDE LEVEL 29 MEQ/L (21-32); CHLORIDE LEVEL 105 MEQ/L (98-107); CREATININE FOR GFR 0.91 MG/DL (0.55-1.30); GLOMERULAR FILTRATION RATE > 60.0 (>51); GLUCOSE, FASTING 128 MG/DL (70-100); POTASSIUM SERUM 3.7 MEQ/L (3.5-5.1); SODIUM LEVEL 138 MEQ/L (136-145)
[2022-04-14 23:28] LABS: CK-MB VALUE MASS 3.4 NG/ML (<3.6); MB/CK RELATIVE INDEX 1.81 (< OR =4)
[2022-04-15] MEDS ORDERED: ISOVUE-370 76% 100ML VIAL As Ordered ONE (00:15)
[2022-04-15 03:15] VITALS: BP 128/68
== END 2022-04-15 03:44 | disposition home or self-care (01) ==
LOC: M ED 22:04
DX: R07.89 Other chest pain (principal); R91.8 Other nonspecific abnormal finding of lung field; I10 Essential (primary) hypertension; K21.9 Gastro-esophageal reflux disease without esophagitis; J45.909 Unspecified asthma, uncomplicated; Z86.711 Personal history of pulmonary embolism; Z83.2 Family history of diseases of the blood and blood-forming organs and certain disorders involving the immune mechanism; L40.50 Arthropathic psoriasis, unspecified; Z79.899 Other long term (current) drug therapy; Z88.8 Allergy status to other drugs, medicaments and biological substances; Z88.2 Allergy status to sulfonamides
CPT/HCPCS: 71045; 71275; 80048; 82550; 82553; 84484; 85025; 85610; 93005; 93041; 94760; 99285; Q9967

== ENCOUNTER 2022-07-12 09:41 | Emergency (ER) | payer MEDICARE ==
[~2022-07-12 09:41] MED LIST changes: +D-50CAP PO; +FLON1SPR NARES; +XIID5DRO OP
[2022-07-12 10:47] LABS: BASO % 0.4 % (0.0-1.0); EOS # 0.2 10^3/uL (0.0-0.5); EOS % 1.4 % (0.0-3.0); HEMATOCRIT 40.3 % (36.0-47.0); HEMOGLOBIN 13.5 g/dl (12.0-15.5); LYMPH # 3.5 10^3/uL (1.5-5.0); LYMPH % 31.2 % (24.0-44.0); MEAN CORPUSCULAR HEMOGLOBIN 28.4 pg (27.0-33.0); MEAN CORPUSCULAR HGB CONC 33.5 g/dl (32.0-36.5); MEAN CORPUSCULAR VOLUME 84.8 fl (80.0-96.0); MONO # 0.8 10^3/uL (0.0-0.8); MONO % 7.2 % (2.0-8.0); NEUTROPHILS # 6.6 10^3/uL (1.5-8.5); NEUTROPHILS % 59.4 % (36.0-66.0); PLATELET COUNT, AUTOMATED 285 10^3/uL (150-450); RED BLOOD COUNT 4.75 10^6/uL (4.00-5.40); WHITE BLOOD COUNT 11.2 10^3/uL (4.0-10.0)
[2022-07-12] MEDS ORDERED: ACETAMINOPHEN 500 MG TAB PO ONE (11:10)
[2022-07-12] MEDS ORDERED: NS 1,000 ML IV SCH (11:15)
[2022-07-12 11:40] LABS: BLOOD UREA NITROGEN 11 MG/DL (7-18); C REACTIVE PROTEIN QUANTITATIV 0.88 MG/DL (0.00-0.30); CALCIUM LEVEL 8.9 MG/DL (8.5-10.1); CARBON DIOXIDE LEVEL 28 MEQ/L (21-32); CHLORIDE LEVEL 105 MEQ/L (98-107); CREATININE FOR GFR 0.69 MG/DL (0.55-1.30); GLOMERULAR FILTRATION RATE > 60.0 (>51); GLUCOSE, FASTING 94 MG/DL (70-100); POTASSIUM SERUM 4.2 MEQ/L (3.5-5.1); SODIUM LEVEL 137 MEQ/L (136-145)
[2022-07-12 12:00] LABS: ERYTHROCYTE SEDIMENTATION RATE 29 mm/hr (0-30)
[2022-07-12 13:47] VITALS: BP 142/78
== END 2022-07-12 13:48 | disposition home or self-care (01) ==
LOC: M ED 09:41
DX: R53.81 Other malaise (principal); G70.00 Myasthenia gravis without (acute) exacerbation; L40.50 Arthropathic psoriasis, unspecified; Z95.9 Presence of cardiac and vascular implant and graft, unspecified; Z79.899 Other long term (current) drug therapy; Z88.8 Allergy status to other drugs, medicaments and biological substances; Z88.2 Allergy status to sulfonamides

== ENCOUNTER 2022-12-16 11:39 | Emergency (ER) | payer MEDICARE, OTHER ==
[~2022-12-16] VITALS: Ht 160 cm; Wt 106.4 kg
[2022-12-16 12:19] LABS: BASO % 0.4 % (0.0-1.0); EOS # 0.2 10^3/uL (0.0-0.5); EOS % 1.9 % (0.0-3.0); HEMATOCRIT 40.2 % (36.0-47.0); HEMOGLOBIN 13.4 g/dl (12.0-15.5); LYMPH # 3.9 10^3/uL (1.5-5.0); LYMPH % 34.3 % (24.0-44.0); MEAN CORPUSCULAR HEMOGLOBIN 27.8 pg (27.0-33.0); MEAN CORPUSCULAR HGB CONC 33.3 g/dl (32.0-36.5); MEAN CORPUSCULAR VOLUME 83.4 fl (80.0-96.0); MONO # 0.7 10^3/uL (0.0-0.8); MONO % 6.4 % (2.0-8.0); NEUTROPHILS # 6.4 10^3/uL (1.5-8.5); NEUTROPHILS % 56.6 % (36.0-66.0); PLATELET COUNT, AUTOMATED 313 10^3/uL (150-450); RED BLOOD COUNT 4.82 10^6/uL (4.00-5.40); WHITE BLOOD COUNT 11.3 10^3/uL (4.0-10.0)
[2022-12-16 12:49] LABS: LIPASE 31 U/L (12-53)
[2022-12-16 12:51] LABS: CPK CREATINE PHOSPHOKINASE 164 U/L (34-145)
[2022-12-16 12:55] LABS: ALBUMIN 3.8 G/DL (3.2-5.2); ALKALINE PHOSPHATASE 103 U/L (46-116); ALT/SGPT 27 U/L (7.0-40); AST/SGOT 20 U/L (<34); BILIRUBIN,DIRECT < 0.1 MG/DL (<0.4); BILIRUBIN,TOTAL 0.4 MG/DL (0.3-1.2); BLOOD UREA NITROGEN 14 MG/DL (9-23); CALCIUM LEVEL 9.4 MG/DL (8.5-10.1); CARBON DIOXIDE LEVEL 28 MMOL/L (20-31); CHLORIDE LEVEL 103 MMOL/L (98-107); CK-MB VALUE MASS 2.4 NG/ML (<3.6); CREATININE FOR GFR 0.57 MG/DL (0.55-1.30); GLOMERULAR FILTRATION RATE > 60.0 (>51); GLUCOSE, FASTING 83 MG/DL (60-100); MB/CK RELATIVE INDEX 1.46 (< OR =4); POTASSIUM SERUM 4.1 MMOL/L (3.5-5.1); SODIUM LEVEL 139 MMOL/L (136-145); TOTAL PROTEIN 7.2 G/DL (5.7-8.2)
[2022-12-16] MEDS ORDERED: GI COCKTAIL 50ML BTL(HYOSCYAMINE/MAALOX/LIDOCAINE VISCOUS)(1:3:1) PO ONE (14:20)
[2022-12-16] MEDS ORDERED: NS 1,000 ML IV ONE (14:20)
[2022-12-16] MEDS ORDERED: DICYCLOMINE 10 MG CAP PO ONE (14:20)
[2022-12-16] MEDS ORDERED: PROMETHAZINE 25MG/ML 1ML VIAL IV ONE (14:20)
[2022-12-16] MEDS ORDERED: ISOVUE-370 76% 100ML VIAL As Ordered ONE (14:30)
[2022-12-16] MEDS ORDERED: MORPHINE 4 MG/ML 1ML VIAL IV ONE (14:35)
[2022-12-16 18:22] LABS: CPK CREATINE PHOSPHOKINASE 157 U/L (34-145); MB/CK RELATIVE INDEX 1.27 (< OR =4)
[2022-12-16] MEDS ORDERED: SUCR1SS PO (20:04)
[2022-12-16 20:12] VITALS: BP 124/72
== END 2022-12-16 20:26 | disposition home or self-care (01) ==
LOC: M ED 11:39
DX: K29.70 Gastritis, unspecified, without bleeding (principal); K21.9 Gastro-esophageal reflux disease without esophagitis; K76.0 Fatty (change of) liver, not elsewhere classified; J44.9 Chronic obstructive pulmonary disease, unspecified; F17.200 Nicotine dependence, unspecified, uncomplicated; Z79.899 Other long term (current) drug therapy; Z88.8 Allergy status to other drugs, medicaments and biological substances; Z88.2 Allergy status to sulfonamides
CPT/HCPCS: 36415; 71046; 74177; 76705; 80048; 80076; 81001; 82550; 82553; 83605; 83690; 84484; 85025; 87486; 87581; 87633; 87798; 93005; 96361; 96374; 99284; Q9967

== ENCOUNTER → 2022-12-28 | Outpatient (CLI) | payer MEDICARE ==
[~2022-12-28] MED LIST changes: +SUCR1SS PO
== END ==
LOC: M RAD 11:23
PROVIDERS: ATTEND Internal Medicine Hematology & Oncology
DX: R77.9 Abnormality of plasma protein, unspecified (principal); M47.816 Spondylosis without myelopathy or radiculopathy, lumbar region; R16.0 Hepatomegaly, not elsewhere classified; K76.0 Fatty (change of) liver, not elsewhere classified; M47.812 Spondylosis without myelopathy or radiculopathy, cervical region

== ENCOUNTER → 2022-12-31 | Outpatient (CLI) | payer MEDICARE ==
[~2022-12-31] MED LIST changes: +LIDOCAINE 1% MDV 20ML VIAL As Ordered ONE
[2022-12-31 13:32] LABS: BASO # 0.1 10^3/uL (0.0-0.2); BASO % 0.4 % (0.0-1.0); EOS # 0.2 10^3/uL (0.0-0.5); EOS % 1.4 % (0.0-3.0); HEMATOCRIT 38.7 % (36.0-47.0); HEMOGLOBIN 13.1 g/dl (12.0-15.5); LYMPH # 4.5 10^3/uL (1.5-5.0); LYMPH % 33.9 % (24.0-44.0); MEAN CORPUSCULAR HEMOGLOBIN 28.5 pg (27.0-33.0); MEAN CORPUSCULAR HGB CONC 33.9 g/dl (32.0-36.5); MEAN CORPUSCULAR VOLUME 84.3 fl (80.0-96.0); MONO # 0.9 10^3/uL (0.0-0.8); NEUTROPHILS # 7.5 10^3/uL (1.5-8.5); NEUTROPHILS % 56.9 % (36.0-66.0); PLATELET COUNT, AUTOMATED 323 10^3/uL (150-450); RED BLOOD COUNT 4.59 10^6/uL (4.00-5.40); WHITE BLOOD COUNT 13.2 10^3/uL (4.0-10.0)
[2022-12-31 13:53] VITALS: BP 165/90
== END ==
LOC: M IRPRO 12:16
PROVIDERS: ATTEND Internal Medicine Hematology & Oncology
DX: R77.9 Abnormality of plasma protein, unspecified (principal)

== ENCOUNTER 2023-06-10 10:51 | Emergency (ER) | payer MEDICARE ==
[~2023-06-10] VITALS: Ht 160 cm; Wt 110.4 kg
[~2023-06-10 10:51] MED LIST changes: +ARTIDRO4 OU; +CBD OIL PO; +CEPH500C PO; +ENOX30IN3; -LIDOCAINE 1% MDV 20ML VIAL As Ordered ONE; -LOSA100T45 PO; +LOSA100T46 PO; -POLYOPD OU; -ROPI1TAB3 PO; +ROPI1TAB73 PO; -ROPI2TAB3 PO; +ROPI2TAB46 PO
[2023-06-10] MEDS ORDERED: ACETAMINOPHEN *IV* 1,000 MG in IV 1 EA IV ONE (13:10)
[2023-06-10 14:14] LABS: LIPASE 33 U/L (12-53)
[2023-06-10 14:16] LABS: ALBUMIN 3.8 G/DL (3.2-5.2); ALKALINE PHOSPHATASE 117 U/L (46-116); ALT/SGPT 33 U/L (7.0-40); AST/SGOT 25 U/L (<34); BILIRUBIN,DIRECT < 0.1 MG/DL (<0.4); BILIRUBIN,TOTAL 0.3 MG/DL (0.3-1.2); TOTAL PROTEIN 7.4 G/DL (5.7-8.2)
[2023-06-10 14:16] LABS: HEMATOCRIT 40.8 % (36.0-47.0); HEMOGLOBIN 13.4 g/dl (12.0-15.5); MEAN CORPUSCULAR HEMOGLOBIN 27.5 pg (27.0-33.0); MEAN CORPUSCULAR HGB CONC 32.8 g/dl (32.0-36.5); MEAN CORPUSCULAR VOLUME 83.8 fl (80.0-96.0); PLATELET COUNT, AUTOMATED 343 10^3/uL (150-450); RED BLOOD COUNT 4.87 10^6/uL (4.00-5.40); WHITE BLOOD COUNT 13.6 10^3/uL (4.0-10.0)
[2023-06-10 14:36] LABS: RSV AMPLIFICATION NEGATIVE (NEGATIVE)
[2023-06-10 15:01] LABS: ATYPICAL LYMPH 19 % (0-5); EOSINOPHILS 1 % (0-3); LYMPHOCYTES 27 % (16-44); MONOCYTES 2 % (0-5); NEUTROPHILS 51 % (28-66); PLATELET ESTIMATE NORMAL (NORMAL)
[2023-06-10] MEDS ORDERED: ISOVUE-370 76% 100ML VIAL As Ordered ONE (15:26)
[2023-06-10] MEDS ORDERED: MORPHINE 4 MG/ML 1ML VIAL IV ONE (16:20)
[2023-06-10] MEDS ORDERED: ONDANSETRON 4MG 2ML VIAL IV ONE (16:20)
[2023-06-10 16:45] VITALS: BP 139/79; TEMP 97; O2SAT 98
[2023-06-11] MEDS ORDERED: CIPR-249 PO (01:26)
[2023-06-12] MEDS ORDERED: CEFD300C41 PO ×2 (15:07→15:58)
== END 2023-06-10 17:01 | disposition home or self-care (01) ==
LOC: M ED 10:51
DX: R10.11 Right upper quadrant pain (principal); K76.0 Fatty (change of) liver, not elsewhere classified

== ENCOUNTER → 2023-07-15 | Outpatient (CLI) | payer MEDICAID, MEDICARE ==
[~2023-07-15] MED LIST changes: +CEFD300C41 PO; +CIPR-249 PO; +PROHANCE 279.3MG/ML 15ML VIAL As Ordered ONE; +PROHANCE 279.3MG/ML 5ML VIAL As Ordered ONE
== END ==
LOC: M RAD 12:45
PROVIDERS: ATTEND Physician Assistant
DX: M47.896 Other spondylosis, lumbar region (principal); M51.26 Other intervertebral disc displacement, lumbar region; M51.27 Other intervertebral disc displacement, lumbosacral region; Z98.1 Arthrodesis status; M48.061 Spinal stenosis, lumbar region without neurogenic claudication
CPT/HCPCS: 72158; A9576

== ENCOUNTER → 2023-08-30 | Outpatient (REF) | payer MEDICARE, OTHER, MEDICAID ==
[~2023-08-30] MED LIST changes: -CEFD300C41 PO; +CEFD300C42 PO; -PROHANCE 279.3MG/ML 15ML VIAL As Ordered ONE; -PROHANCE 279.3MG/ML 5ML VIAL As Ordered ONE
[2023-08-30 16:00] LABS: APPEARANCE, URINE CLEAR (CLEAR); BACTERIA, URINE AUTO NEGATIVE (NEGATIVE); BILIRUBIN, URINE AUTO NEGATIVE (NEGATIVE); BLOOD, URINE BLOOD NEGATIVE (NEGATIVE); COLOR, URINE YELLOW (YELLOW); GLUCOSE, URINE (UA) AUTO NEGATIVE (NEGATIVE); KETONE, URINE AUTO NEGATIVE (NEGATIVE); LEUKOCYTE ESTERASE, URINE AUTO NEGATIVE (NEGATIVE); MUCUS, URINE SMALL (NEGATIVE); NITRITE, URINE AUTO NEGATIVE (NEGATIVE); PROTEIN, URINE AUTO NEGATIVE (NEGATIVE); RBC, URINE AUTO 0 /HPF (0-3); SPECIFIC GRAVITY URINE AUTO 1.014 (1.002-1.035); SQUAMOUS EPITHELIAL CELL UR AU 3 /HPF (0-6); UROBILINOGEN, URINE AUTO 0.2 mg/dL (0.0-2.0); WBC, URINE AUTO 1 /HPF (0-3)
== END ==
LOC: M SMT 15:37
PROVIDERS: ATTEND Physician Assistant
DX: N39.0 Urinary tract infection, site not specified (principal)

== ENCOUNTER → 2024-07-11 | Outpatient (CLI) | payer MEDICAID, MEDICARE ==
[~2024-07-11] MED LIST changes: +CEFD1CAP9 PO; -CEFD300C42 PO; +CEFP100T PO; +GABA-1172 PO; +GABA-1490 PO; -GABA-282 PO; -GABA600T4 PO; +LIDOCAINE 1% MDV 20ML VIAL As Ordered ONE; +MIDAZOLAM INJ 2MG/2ML VIAL As Ordered ONE; +ONDA-284 PO; +PREDOPD OS; +ceFAZolin 2 GM/D5W 50 ML IV BAG As Ordered ONE; +fentaNYL 100 MCG/2 ML INJECTION As Ordered ONE
[2024-07-11 10:10] VITALS: TEMP 98
[2024-07-11] MEDS: NS 1,000 ML IV SCH (11:08)
[2024-07-11] MEDS: ceFAZolin SOD 2 GM in IV 1 EA IV ONE (11:08)
[2024-07-11 13:25] VITALS: BP 172/91; O2SAT 96
== END ==
LOC: M IRPRO 09:49
PROVIDERS: ATTEND Dietitian, Registered
DX: D47.2 Monoclonal gammopathy (principal)
CPT/HCPCS: 36590; 99152; 99153; J0690; J2250; J3010

== ENCOUNTER 2024-07-13 18:42 | Emergency (ER) | payer MEDICARE ==
[~2024-07-13] VITALS: Ht 160 cm; Wt 107.3 kg
[~2024-07-13 18:42] MED LIST changes: -LIDOCAINE 1% MDV 20ML VIAL As Ordered ONE; -MIDAZOLAM INJ 2MG/2ML VIAL As Ordered ONE; -ceFAZolin 2 GM/D5W 50 ML IV BAG As Ordered ONE; -fentaNYL 100 MCG/2 ML INJECTION As Ordered ONE
[2024-07-13 22:16] LABS: BASO % 0.3 % (0.0-1.0); EOS # 0.3 10^3/uL (0.0-0.5); LYMPH # 5.6 10^3/uL (1.5-5.0); LYMPH % 40.7 % (24.0-44.0); MEAN CORPUSCULAR HEMOGLOBIN 28.2 pg (27.0-33.0); MEAN CORPUSCULAR HGB CONC 34.2 g/dl (32.0-36.5); MEAN CORPUSCULAR VOLUME 82.4 fl (80.0-96.0); MONO # 0.8 10^3/uL (0.0-0.8); MONO % 5.8 % (2.0-8.0); NEUTROPHILS % 50.9 % (36.0-66.0); PLATELET COUNT, AUTOMATED 320 10^3/uL (150-450); RED BLOOD COUNT 4.61 10^6/uL (4.00-5.40); WHITE BLOOD COUNT 13.7 10^3/uL (4.0-10.0)
[2024-07-13 22:48] LABS: BLOOD UREA NITROGEN 17 MG/DL (9-23); CALCIUM LEVEL 9.5 MG/DL (8.5-10.1); CARBON DIOXIDE LEVEL 28 MMOL/L (20-31); CHLORIDE LEVEL 107 MMOL/L (98-107); CREATININE FOR GFR 0.58 MG/DL (0.55-1.30); GLOMERULAR FILTRATION RATE > 60.0 (>51); GLUCOSE, FASTING 125 MG/DL (60-100); POTASSIUM SERUM 3.6 MMOL/L (3.5-5.1); SODIUM LEVEL 139 MMOL/L (136-145)
[2024-07-14] MEDS: ceFAZolin SOD 1 GM in D5W MINI-BAG PLUS 50 ML IV ONE (00:34)
[2024-07-14 01:45] VITALS: BP 128/76; TEMP 97; O2SAT 97
== END 2024-07-14 01:47 | disposition home or self-care (01) ==
LOC: M ED 18:42
DX: Z29.9 Encounter for prophylactic measures, unspecified (principal); Z87.19 Personal history of other diseases of the digestive system; K21.9 Gastro-esophageal reflux disease without esophagitis; G70.00 Myasthenia gravis without (acute) exacerbation; M54.81 Occipital neuralgia; G25.81 Restless legs syndrome; Z98.61 Coronary angioplasty status; Z79.899 Other long term (current) drug therapy; Z88.2 Allergy status to sulfonamides; Z88.8 Allergy status to other drugs, medicaments and biological substances
CPT/HCPCS: 80048; 85025; 96365; 99283; J0690

== ENCOUNTER → 2024-07-27 | Outpatient (CLI) | payer MEDICARE, MEDICAID | LOC: M RAD 06:58 | PROVIDERS: ATTEND Internal Medicine Gastroenterology | DX: R10.31 Right lower quadrant pain (principal); R10.11 Right upper quadrant pain | CPT/HCPCS: 78227; A9537 ==

== ENCOUNTER 2024-09-26 14:26 | Emergency (ER) | payer MEDICARE ==
[~2024-09-26] VITALS: Ht 160 cm; Wt 106.0 kg
[~2024-09-26 14:26] MED LIST changes: +ESOM40CA35
[2024-09-26 15:04] LABS: BASO % 0.2 % (0.0-1.0); EOS # 0.2 10^3/uL (0.0-0.5); EOS % 1.8 % (0.0-3.0); HEMATOCRIT 38.6 % (36.0-47.0); HEMOGLOBIN 12.7 g/dl (12.0-15.5); LYMPH % 31.6 % (24.0-44.0); MEAN CORPUSCULAR HEMOGLOBIN 27.7 pg (27.0-33.0); MEAN CORPUSCULAR HGB CONC 32.9 g/dl (32.0-36.5); MEAN CORPUSCULAR VOLUME 84.1 fl (80.0-96.0); MONO # 0.8 10^3/uL (0.0-0.8); MONO % 6.1 % (2.0-8.0); NEUTROPHILS # 7.5 10^3/uL (1.5-8.5); NEUTROPHILS % 59.9 % (36.0-66.0); PLATELET COUNT, AUTOMATED 331 10^3/uL (150-450); RED BLOOD COUNT 4.59 10^6/uL (4.00-5.40); WHITE BLOOD COUNT 12.6 10^3/uL (4.0-10.0)
[2024-09-26 15:25] LABS: BLOOD UREA NITROGEN 15 MG/DL (9-23); CALCIUM LEVEL 9.1 MG/DL (8.5-10.1); CARBON DIOXIDE LEVEL 28 MMOL/L (20-31); CHLORIDE LEVEL 108 MMOL/L (98-107); CK-MB VALUE MASS 1.6 NG/ML (<3.6); CPK CREATINE PHOSPHOKINASE 209 U/L (34-145); CREATININE FOR GFR 0.63 MG/DL (0.55-1.30); GLOMERULAR FILTRATION RATE > 60.0 (>51); GLUCOSE, FASTING 98 MG/DL (60-100); MB/CK RELATIVE INDEX 0.76 (< OR =4); POTASSIUM SERUM 3.7 MMOL/L (3.5-5.1); SODIUM LEVEL 141 MMOL/L (136-145)
[2024-09-26] MEDS: ONDANSETRON 4MG 2ML VIAL IV ONE (15:31)
[2024-09-26 15:40] LABS: LIPASE 35 U/L (12-53)
[2024-09-26 15:42] LABS: ALBUMIN 3.5 G/DL (3.2-5.2); ALKALINE PHOSPHATASE 109 U/L (35-104); ALT/SGPT 33 U/L (7.0-40); AST/SGOT 20 U/L (<34); BILIRUBIN,DIRECT < 0.1 MG/DL (<0.4); BILIRUBIN,TOTAL 0.2 MG/DL (0.3-1.2); TOTAL PROTEIN 7.7 G/DL (5.7-8.2)
[2024-09-26] MEDS: rOPINIRole 2MG TAB PO ONE (16:07)
[2024-09-26 16:30] VITALS: BP 112/61; TEMP 97.9
[2024-09-26 16:40] LABS: CK-MB VALUE MASS 1.2 NG/ML (<3.6)
[2024-09-26 16:41] LABS: MB/CK RELATIVE INDEX 0.68 (< OR =4)
[2024-09-26 17:00] VITALS: O2SAT 94
== END 2024-09-26 17:15 | disposition home or self-care (01) ==
LOC: M ED 14:26
DX: R07.9 Chest pain, unspecified (principal); R10.9 Unspecified abdominal pain; Z87.19 Personal history of other diseases of the digestive system; K21.9 Gastro-esophageal reflux disease without esophagitis; J45.909 Unspecified asthma, uncomplicated; E03.9 Hypothyroidism, unspecified; G25.81 Restless legs syndrome; D47.2 Monoclonal gammopathy; F41.9 Anxiety disorder, unspecified; F32.9 Major depressive disorder, single episode, unspecified; Z79.899 Other long term (current) drug therapy; Z88.2 Allergy status to sulfonamides; Z88.8 Allergy status to other drugs, medicaments and biological substances